=== PATIENT | female | born 1940 | race Caucasian/White ===

== ENCOUNTER 2016-07-04 14:40 | Inpatient (IN) ==
[2016-07-04] MEDS ORDERED: methylPREDNISolone 125 MG/2 ML VIAL IVP ONE (14:45)
[2016-07-04] MEDS ORDERED: Ipratropium/Albuterol Neb 3 ML IH ONE (14:45)
--- NOTE | 2016-07-04 14:56 | Emergency Department Note ---
Disposition Clinical Impression: Community acquired pneumonia, Elevated troponin Acute respiratory failure Qualifiers: Respiratory failure complication: unspecified whether with hypoxia or hypercapnia Qualified Code(s): J96.00 - Acute respiratory failure, unspecified whether with hypoxia or hypercapnia Disposition: Admitted As Inpatient Condition: Fair Time of Disposition: 17:46 SOB HPI - General Chief Complaint: ED Shortness of Breath/Dyspnea Stated Complaint: KAYLA Time Seen by Provider: 07/04/16 14:44 Source: family, EMS Mode of arrival: EMS Limitations: other (on bipap) Nursing Notes Reviewed: Yes Vital Signs Reviewed: Yes - History of Present Illness Patient is a 75-year-old female who presents to [facility] ED and respiratory distress on a CPAP machine. Per EMS, patient has been having a cough for the last few days and then increasing difficulty breathing today. Family members states she does not have any history of COPD or heart problems. Apparently, patient was on room air at 60%. Patient does not have any history of being on home oxygen. Past medical history significant for dementia, hypertension, diabetes, cirrhosis of the liver, gastric ulcer, chronic back pain. Patient was recently seen on June 06 after a fall at home. She was diagnosed with multiple right-sided rib fractures. She is given an incentive spirometer and told to follow up with her primary care physician. Pt Subjective Complaint: shortness of breath, cough Onset (ago): day(s) Context: recent illness Severity: severe Consistency/Duration: gradually worsening Improves with: nothing Worsens with: nothing - Related Data Home Medications Medication Instructions Recorded Confirmed Amitriptyline [Elavil] 40 mg PO HS 07/04/16 07/04/16 Calcium Carbonate/Vitamin D3 1 tab PO BID 07/04/16 07/04/16 [Oyster Shell Calcium-Vit D Tab] Donepezil HCl [Aricept] 5 mg PO DAILY 07/04/16 07/04/16 Escitalopram [Lexapro] 20 mg PO DAILY 07/04/16 07/04/16 Esomeprazole Magnesium [Nexium] 40 mg PO DAILY 07/04/16 07/04/16 Ferrous Sulfate [Iron] 325 mg PO DAILY 07/04/16 07/04/16 GlipiZIDE [Glucotrol] 5 mg PO BIDWM 07/04/16 07/04/16 LORazepam [Ativan] 1 mg PO QID 07/04/16 07/04/16 Lisinopril [Zestril] 20 mg PO DAILY 07/04/16 07/04/16 Metformin [Glucophage] 500 mg PO BIDWM 07/04/16 07/04/16 Metoprolol [Lopressor] 25 mg PO BID 07/04/16 07/04/16 Oxycodone HCl/Acetaminophen 1 tab PO Q8H PRN 07/04/16 07/04/16 [Percocet 10-325 mg Tablet] Potassium Chloride [K-Tab ER] 10 meq PO BID 07/04/16 07/04/16 Risedronate Sodium [Actonel] 35 mg PO QWEEK 07/04/16 07/04/16 Simvastatin [Zocor] 20 mg PO HS 07/04/16 07/04/16 Sucralfate [Carafate] 1 gm PO QIDAC 07/04/16 07/04/16 Allergies Allergy/AdvReac Type Severity Reaction Status Date / Time No Known Allergies Allergy Verified 07/04/16 14:49 All systems ED: reviewed and negative except as stated. Past Medical History - Past Medical History Attestation: Yes The following information was validated with the patient. Source: patient Medical history: Reports: cirrhosis, diabetes Surgical history: Reports: hysterectomy Psychiatric history: Reports: depression - Social History Smoking Status: Never smoker Smokeless Tobacco Status: No Alcohol use: Reports: none Drug use: Reports: none Physical Exam - General Limitations: no limitations General appearance: alert, in distress - Head Head exam: atraumatic, normocephalic, normal inspection - Eye Eye exam: Present: normal appearance, PERRL, EOMI - ENT ENT exam: normal exam, normal oropharynx, mucous membranes moist - Neck Neck exam: Present: normal inspection, full ROM, trachea midline - Chest Chest inspection: Present: normal inspection, symmetric chest wall rise - Respiratory Respiratory exam: Present: other (Diffuse rhonchi bilaterally) - Cardiovascular Cardiovascular exam: Present: normal rhythm, tachycardia - Abdominal Exam Abdominal exam: Present: soft, Non-Tender. Absent: tenderness, distention, guarding, rebound, rigidity - Extremities Exam Extremities exam: Present: normal inspection, full ROM. Absent: tenderness, pedal edema - Neurological Exam Neurological exam: Present: alert - Psychiatric Psychiatric exam: Present: normal affect, normal mood - Skin Skin exam: Present: warm, dry, intact, normal color Course Course Narrative: Patient seen and examined. History and review of systems limited by dementia. Patient currently on BiPAP. She is awake and able to talk. We will do critical care workup. - Reevaluation(s) Reevaluation #1: Lab work shows mild hyponatremia sodium 129, mildly elevated troponin of 0.04, BNP of 158. CTA of the chest showed CHF versus multifocal pneumonia. We will give azithromycin and ceftriaxone to treat as a pneumonia. Will admit for acute respiratory failure, CHF versus pneumonia. I spoke with hospitalist Dora Leo who has accepted patient for admission. Time: 17:44 Vital Signs Temperature 99.5 F 07/04/16 14:41 Pulse Rate 149 07/04/16 14:41 Respiratory Rate 32 07/04/16 14:41 Blood Pressure 166/134 07/04/16 14:41 O2 Sat by Pulse Oximetry 94 L 07/04/16 14:41 Temperature 99.5 F 07/04/16 14:41 Pulse Rate 99 07/04/16 17:48 Respiratory Rate 18 07/04/16 17:48 Blood Pressure 118/73 07/04/16 17:48 O2 Sat by Pulse Oximetry 98 07/04/16 17:48 Oxygen Delivery Oxygen Delivery Bipap Shortness of Breath/Dyspnea - Medical Records Medical records reviewed: Yes I reviewed the patient's medical records. - Lab Data Lab results reviewed: Yes I reviewed the patient's lab results. Result diagrams: 07/04/16 15:49 07/04/16 15:49 Lab Results 07/04/16 07/04/16 07/04/16 Range/Units 15:45 15:49 15:49 WBC 10.9 (4.3-11.1) K/mcL RBC 3.82 (3.82-4.97) M/mcL Hgb 11.1 L (11.5-15.4) g/dL Hct 33.2 L (35.3-44.9) % MCV 86.9 (83.0-100.0) fL MCH 29.1 (28.0-33.3) pg MCHC 33.4 (31.6-35.5) g/dL RDW 14.2 (11.5-14.5) % Plt Count 131 L (140-400) K/mcL MPV 9.7 (9.4-12.4) fL Immature Gran % 1.6 (0-4) % Seg Neutrophils % 84.1 % Lymphocytes % 4.0 % Monocytes % 9.5 % Eosinophils % 0.5 % Basophils % 0.3 % Neutrophils # 9.2 H (1.6-8.9) K/mcL Lymphocytes # 0.4 L (0.6-4.6) K/mcL Monocytes # 1.0 (0.0-1.3) K/mcL Eosinophils # 0.1 (0.0-0.6) K/mcL Basophils # 0.0 (0.0-0.2) K/mcL Immature Plt Fraction 3.7 (1.1-6.1) % ABG pH 7.41 (7.32-7.45) pH Units ABG pCO2 37 (35-45) mmHg ABG pO2 219 H (85-104) mmHg ABG HCO3 23.5 (21-27) mEQ/L ABG Total CO2 24.6 (20-26) mEq/L ABG O2 Saturation 100 H (95-98) % ABG Base Excess -0.9 (-2.0 to 3.0) mEq/L Blood Gas Modality BIPAP Inspired O2 80 % Sodium 129 L (136-145) mEq/L Potassium 3.9 (3.5-4.5) mEq/L Chloride 96 L (98-109) mEq/L Carbon Dioxide 23 (19-29) mEq/L BUN 12 (7-20) mg/dL Creatinine 0.87 (0.57-1.11) mg/dL Est GFR ( Amer) > 60 (> 60) Est GFR (Non-Af Amer) > 60 (> 60) BUN/Creatinine Ratio 14 (6-26) Glucose 268 H (70-99) mg/dL Calculated Osmolality 277 L (280-300) Lactic Acid (0.5-2.2) mmol/L Calcium 8.0 L (8.6-10.8) mg/dL Troponin I (0-0.03) ng/mL B-Natriuretic Peptide (0-100) pg/mL 07/04/16 07/04/16 07/04/16 Range/Units 15:49 15:49 15:49 WBC (4.3-11.1) K/mcL RBC (3.82-4.97) M/mcL Hgb (11.5-15.4) g/dL Hct (35.3-44.9) % MCV (83.0-100.0) fL MCH (28.0-33.3) pg MCHC (31.6-35.5) g/dL RDW (11.5-14.5) % Plt Count (140-400) K/mcL MPV (9.4-12.4) fL Immature Gran % (0-4) % Seg Neutrophils % % Lymphocytes % % Monocytes % % Eosinophils % % Basophils % % Neutrophils # (1.6-8.9) K/mcL Lymphocytes # (0.6-4.6) K/mcL Monocytes # (0.0-1.3) K/mcL Eosinophils # (0.0-0.6) K/mcL Basophils # (0.0-0.2) K/mcL Immature Plt Fraction (1.1-6.1) % ABG pH (7.32-7.45) pH Units ABG pCO2 (35-45) mmHg ABG pO2 (85-104) mmHg ABG HCO3 (21-27) mEQ/L ABG Total CO2 (20-26) mEq/L ABG O2 Saturation (95-98) % ABG Base Excess (-2.0 to 3.0) mEq/L Blood Gas Modality Inspired O2 % Sodium (136-145) mEq/L Potassium (3.5-4.5) mEq/L Chloride (98-109) mEq/L Carbon Dioxide (19-29) mEq/L BUN (7-20) mg/dL Creatinine (0.57-1.11) mg/dL Est GFR ( Amer) (> 60) Est GFR (Non-Af Amer) (> 60) BUN/Creatinine Ratio (6-26) Glucose (70-99) mg/dL Calculated Osmolality (280-300) Lactic Acid 1.6 (0.5-2.2) mmol/L Calcium (8.6-10.8) mg/dL Troponin I 0.04 H* (0-0.03) ng/mL B-Natriuretic Peptide 158 H (0-100) pg/mL - Radiology Data Radiology results reviewed: Yes I reviewed the patient's radiology results. Chest X-Ray 07/04/16 14:45 IMPRESSION: Findings likely represent CHF. Multifocal pneumonia can give similar findings. D/ / Garry Zuñiga MD / Garry Zuñiga MD Interpreting Provider: Garry Zuñiga MD - EKG Data EKG attestation: Yes I reviewed and interpreted this EKG. EKG results narrative: EKG done at 1542 shows sinus tachycardia with a rate of [address] elevation or depression. Left bundle branch block present. Left axis deviation. Critical Care Time Critical Care Time: Yes Total Critical Care Time: 35 Attestation: Critical care time 35 minutes managing patient's respiratory distress. Attestation Statement - Attestation Attestation: Patient was seen with resident physician. I reviewed the history, physical, assessment and plan, and agree with the findings. I also personally evaluated this patient and had [id number] time with this patient. 75-year-old female presents to the emergency department via EMS with acute onset of shortness of breath. Family states that patient has had a worsening cough and last 48 hours. Today in particular it got very bad and the patient was having difficult breathing. She has no history of COPD that there were obtained does not take breathing treatments. She is placed on BiPAP via EMS was given nitroglycerin as well as Lasix and brought to the emergency department. On arrival patient to the BiPAP and unable to provide a history. Clearly struggling to breathe. On examination ENT is unremarkable. Heart tachycardic with regular rhythm. Lungs accessory muscles being used to help with respiration lungs diffusely wheezy with rhonchi as well. Poor air exchange. Abdomen is soft obese and nontender. Extremities are unremarkable she has 1+ edema in the lower extremities bilaterally. Neurologically patient is alert and follows commands. We will do workup for COPD, CHF, and pneumonia. We will also check for cardiac causes of her symptoms. Patient's x-ray looked like the beginning of ARDS, but certainly had patchy infiltrate which could be consistent with pneumonia. We will start IV antibiotics while in the emergency department. Patient remained on BiPAP but improved significantly throughout her stay. Hospitalist service was notified as to the need for admission. I agree with the resident physician assessment and plan. Critical care time for this patient was 35 minutes.
[2016-07-04 15:56] LABS: Basophils % 0.3 %; Eosinophils # 0.1 K/mcL (0.0-0.6); Eosinophils % 0.5 %; Hematocrit 33.2 % (35.3-44.9); Hemoglobin 11.1 g/dL (11.5-15.4); Immature Granulocytes % 1.6 % (0-4); Immature Platelets 3.7 % (1.1-6.1); Lymphocytes # 0.4 K/mcL (0.6-4.6); Mean Corpuscular HGB Conc 33.4 g/dL (31.6-35.5); Mean Corpuscular Hemoglobin 29.1 pg (28.0-33.3); Mean Corpuscular Volume 86.9 fL (83.0-100.0); Mean Platelet Volume 9.7 fL (9.4-12.4); Monocytes % 9.5 %; Neutrophils # 9.2 K/mcL (1.6-8.9); Platelet Count 131 K/mcL (140-400); Red Blood Count 3.82 M/mcL (3.82-4.97); Red Cell Distribution Width 14.2 % (11.5-14.5); Segmented Neutrophils % 84.1 %
[2016-07-04 15:56] LABS: ABG Base Excess -0.9 mEq/L (-2.0 to 3.0); ABG HCO3 23.5 mEQ/L (21-27); ABG Oxygen Saturation 100 % (95-98); ABG PCO2 37 mmHg (35-45); ABG PH 7.41 pH Units (7.32-7.45); ABG PO2 219 mmHg (85-104); ABG TCO2 24.6 mEq/L (20-26)
[2016-07-04 16:00] LABS: Blood Gas FiO2 80 %
[2016-07-04 16:11] LABS: BUN/Creatinine Ratio 14 (6-26); Blood Urea Nitrogen 12 mg/dL (7-20); Carbon Dioxide 23 mEq/L (19-29); Chloride 96 mEq/L (98-109); Glucose 268 mg/dL (70-99); Osmolality,Calculated 277 (280-300); Potassium 3.9 mEq/L (3.5-4.5); Sodium 129 mEq/L (136-145); eGFR For African Americans > 60 (> 60); eGFR For Non-African Americans > 60 (> 60)
[2016-07-04] MEDS ORDERED: Azithromycin 500 MG in D5% in Water 250 ML IVPB ONE (16:40)
[2016-07-04] MEDS ORDERED: Furosemide 40 MG/4 ML VIAL IVP ONE (19:59)
[2016-07-04] MEDS ORDERED: *HR* Heparin 5,000 UNIT/ML VIAL IVP PRN ×2 (20:30)
[2016-07-04] MEDS ORDERED: *HR* Heparin 5,000 UNIT/ML VIAL IVP ONE (20:30)
[2016-07-04] MEDS ORDERED: Heparin 25,000 UNIT/500 ML D5W 25,000 UNIT/500 ML MLS IVC SCH (20:30)
--- NOTE | 2016-07-04 20:38 | Internal Med History&Physical ---
Date of Encounter: 07/04/16 Time of Encounter: 20:34 Assessment and Plan (1) Diastolic CHF, acute on chronic Current visit: Yes Status: Acute I suspect the main reason for presentation is heart failure. I will start the patient on Lasix 40 mg IV twice a day. Echocardiogram will be checked. Following taken output. Piña catheter has been placed. (2) Acute respiratory failure Current visit: Yes Status: Acute Patient is currently on BiPAP FIFO to 40%. arterial blood gas will be repeated at 10 PM. Qualifiers: Respiratory failure complication: unspecified whether with hypoxia or hypercapnia Qualified Code(s): J96.00 - Acute respiratory failure, unspecified whether with hypoxia or hypercapnia (3) Community acquired pneumonia Current visit: Yes Status: Acute Patient has been coughing however there is no sputum production. No fever. She will be kept emperically on antibiotic Levaquin for community acquired pneumonia. No recent hospitalization. (4) Elevated troponin Current visit: Yes Status: Acute Patient has a left bundle branch block. However an electrocardiogram 2 years ago was reviewed and she did have left bundle branch block before. She has troponin elevation because of my suspicion of pulmonary congestion on presentation I will start the patient on heparin drip in case this is a cardiac event. She consultation. Continue aspirin beta ngozi (5) Diabetes mellitus type 2 in obese Current visit: Yes Status: Acute Sliding scale insulin. Check hemoglobin A-1 C in the morning Internal Medicine - H&P: HPI Chief complaint: Shortness of breath. History of present illness: Ms. Nieto is a 75 year old female with history of dementia, diabetes mellitus, hypertension who recently sustained a fall on June 06 causing multiple rib fractures presents to the emergency room with the main complaint of shortness of breath. For the past 3 days family noted that the patient has been having cough however there was no sputum production. Since yesterday patient was noted to be more short of breath this has progressed rapidly today to the point where she was unable to breathe and rest. Paramedics found her saturation to be 60% on room air. She was placed on BiPAP and remained on BiPAP till my interview. The patient denies any chest pain however she is complained to her family of abdominal pain in the periumbilical area.. Family has not noted any fevers chills. There was no sputum production. There is no prior history of coronary artery disease. Patient does not have any chronic lung conditions. She never smoked. No prior history of COPD. On my interview patients oxygen requirements have decreased to 40% on BiPAP she was earlier requiring 90% FI O2 on BiPAP. Patients electrocardiogram shows left bundle branch block however on reviewing her prior EKG 2 years ago she did have left bundle branch block. Past Med Surg Social Fam HX - Past Medical History Medical history: cirrhosis, diabetes Psychiatric history: depression - Past Surgical History Surgical History: hysterectomy - Social History Smoking Status: Never smoker Smokeless Tobacco Status: No Alcohol use: none Drug use: none Internal Medicine - H&P: Meds Amitriptyline [Elavil] 40 mg PO HS 07/04/16 [History] Calcium Carbonate/Vitamin D3 [Oyster Shell Calcium-Vit D Tab] 1 tab PO BID 07/04 [History] Donepezil HCl [Aricept] 5 mg PO DAILY 07/04/16 [History] Escitalopram [Lexapro] 20 mg PO DAILY 07/04/16 [History] Esomeprazole Magnesium [Nexium] 40 mg PO DAILY 07/04/16 [History] Ferrous Sulfate [Iron] 325 mg PO DAILY 07/04/16 [History] GlipiZIDE [Glucotrol] 5 mg PO BIDWM 07/04/16 [History] LORazepam [Ativan] 1 mg PO QID 07/04/16 [History] Lisinopril [Zestril] 20 mg PO DAILY 07/04/16 [History] Metformin [Glucophage] 500 mg PO BIDWM 07/04/16 [History] Metoprolol [Lopressor] 25 mg PO BID 07/04/16 [History] Oxycodone HCl/Acetaminophen [Percocet 10-325 mg Tablet] 1 tab PO Q8H PRN [History] Potassium Chloride [K-Tab ER] 10 meq PO BID 07/04/16 [History] Risedronate Sodium [Actonel] 35 mg PO QWEEK 07/04/16 [History] Simvastatin [Zocor] 20 mg PO HS 07/04/16 [History] Sucralfate [Carafate] 1 gm PO QIDAC 07/04/16 [History] Allergies haloperidol Allergy (Verified 07/04/16 19:37) Hallucinating All Systems PM: A 10-system review of systems was performed and is negative for pertinent findings except as documented above in the HPI. Review of systems: [place] review of systems is negative except for HPI. - Constitutional Vitals: Temp Pulse Resp BP Pulse Ox 98.6 F 78 18 127/65 99 07/04/16 20:17 07/04/16 20:17 07/04/16 20:17 07/04/16 20:17 07/04/16 20:17 Exam: Gen.: patient is alert not in distress. Cardiac: Normal S1 S2 no additional sounds or murmurs chest: scattered expiratory wheeze. I do not appreciate bronchial breathing abdomen soft nontender nondistended normal bowel sounds lower extremity: lax calf muscles, 1+ swelling neuro no focal deficit Internal Med - H&P Results - Labs CBC & Chem 7: 07/04/16 15:49 07/04/16 15:49
[2016-07-04 21:20] LABS: Hematocrit 28.9 % (35.3-44.9); Hemoglobin 9.8 g/dL (11.5-15.4); Immature Platelets 4.2 % (1.1-6.1); Mean Corpuscular HGB Conc 33.9 g/dL (31.6-35.5); Mean Corpuscular Hemoglobin 29.3 pg (28.0-33.3); Mean Corpuscular Volume 86.3 fL (83.0-100.0); Mean Platelet Volume 9.5 fL (9.4-12.4); Red Blood Count 3.35 M/mcL (3.82-4.97)
[2016-07-04 21:25] LABS: INR 1.4; Prothrombin Time 15.3 Seconds (9.4-12.1)
[2016-07-04 21:27] LABS: Activated Partial Thrombo Time 25.8 Seconds (26.0-36.0)
[2016-07-04] MEDS: Levalbuterol Neb 1.25 MG/3 ML IH SCH (22:01)
[2016-07-04 22:52] LABS: ABG Base Excess 1.8 mEq/L (-2.0 to 3.0); ABG HCO3 27.2 mEQ/L (21-27); ABG Oxygen Saturation 97 % (95-98); ABG PCO2 45 mmHg (35-45); ABG PH 7.39 pH Units (7.32-7.45); ABG PO2 87 mmHg (85-104); ABG TCO2 28.6 mEq/L (20-26); Blood Gas FiO2 35 %
[2016-07-05] MEDS: Levofloxacin 750 MG/150 ML 750 MG/150 ML BAG IVPB SCH ×2 (00:13→08:14)
[2016-07-05] MEDS: Insulin LISPRO 300 UNITS/3 ML VIAL SQ SCH ×4 (00:45→18:00)
[2016-07-05] MEDS ORDERED: Insulin LISPRO 300 UNITS/3 ML VIAL SQ ONE (01:00)
[2016-07-05] MEDS: Aspirin Enteric Coated 325 MG Tablet PO SCH ×3 (01:18→10:39)
[2016-07-05] MEDS: Levalbuterol Neb 1.25 MG/3 ML IH SCH ×4 (04:49→20:55)
[2016-07-05 04:54] LABS: Basophils % 0.2 %; Hemoglobin 9.7 g/dL (11.5-15.4)
[2016-07-05 04:56] LABS: Hematocrit 28.3 % (35.3-44.9); Immature Granulocytes % 1.8 % (0-4); Immature Platelets 4.8 % (1.1-6.1); Lymphocytes # 0.3 K/mcL (0.6-4.6); Lymphocytes % 5.2 %; Mean Corpuscular HGB Conc 34.3 g/dL (31.6-35.5); Mean Corpuscular Hemoglobin 29.5 pg (28.0-33.3); Mean Platelet Volume 10.3 fL (9.4-12.4); Monocytes # 0.4 K/mcL (0.0-1.3); Monocytes % 7.1 %; Neutrophils # 4.3 K/mcL (1.6-8.9); Red Blood Count 3.29 M/mcL (3.82-4.97); Red Cell Distribution Width 14.1 % (11.5-14.5); Segmented Neutrophils % 85.7 %
[2016-07-05 05:01] LABS: Hemoglobin A1C 5.2 %; Platelet Count 88 K/mcL (140-400)
[2016-07-05 05:06] LABS: BUN/Creatinine Ratio 17 (6-26); Blood Urea Nitrogen 16 mg/dL (7-20); Calcium 7.8 mg/dL (8.6-10.8); Carbon Dioxide 26 mEq/L (19-29); Chloride 98 mEq/L (98-109); Creatine Kinase 52 Units/L (29-168); Glucose 264 mg/dL (70-99); Magnesium 1.4 mg/dL (1.6-2.6); Osmolality,Calculated 284 (280-300); Potassium 3.3 mEq/L (3.5-4.5); Sodium 132 mEq/L (136-145); eGFR For African Americans > 60 (> 60); eGFR For Non-African Americans 59 (> 60)
[2016-07-05] MEDS ORDERED: Furosemide 40 MG/4 ML VIAL IVP SCH (06:00)
--- NOTE | 2016-07-05 09:33 | Cardiology Consult Note ---
Date of Encounter: 07/05/16 Time of Encounter: 09:31 Assessment and Plan (1) Community acquired pneumonia Current Visit: Yes Status: Acute Patient empirically treated with Levaquin I suspect patient's hypoxemia is likely due to CAP Will defer to primary team for management (2) CHF (congestive heart failure) Current Visit: Yes Status: Chronic Acute heart failure is unlikely etiology of patient's respiratory failure Weight is down from baseline (203 in April, 189 at this visit), patient is euvolemic on exam ECHO performed 10/07/14 demonstrated LVEF 55-60%, mild LV diastolic dysfunction Mild heart failure may be contributing to clinical picture. However unlikely primary etiology. Repeat ECHO demonstrates EF 60%, concentric LVH, mild LV diastolic dysfunction, atypical septal motion consistent with BBB, normal RV, mild to moderate pulmonary hypertension Continue home meds: beta-ngozi, lisinopril, simvastatin Discontinue IV diuresis Qualifiers: Congestive heart failure type: unspecified congestive heart failure type Congestive heart failure chronicity: unspecified congestive heart failure chronicity Qualified Code(s): I50.9 - Heart failure, unspecified (3) Obstructive sleep apnea Current Visit: Yes Status: Chronic ECHO demonstrates mild-moderate pulmonary hypertension Patient's history is suggestive of untreated JUDY Recommend further evaluation for JUDY and etiology of pulmonary hypertension (4) Elevated troponin Current Visit: Yes Status: Acute Elevated troponin likely secondary to pulmonary congestion and demand ischemia Troponin is trending down (0.04, 0.10, 0.05) EKG with finding of LBBB is nondiagnostic due to EKG in 2014 demonstrating LBBB Discontinue heparin drip (5) Hypomagnesemia Current Visit: Yes Status: Acute Replaced IV Continue to monitor (6) Hypokalemia Current Visit: Yes Status: Acute Replaced per hospitalist team Continue to monitor Discussion w patient/family: The assessment and plan as outlined above was discussed with the patient and/or family members who expressed understanding and agreement. All questions were answered. Thank you for involving us in the care of your patient. Please call with any questions. History of Present Illness Consult date: 07/05/16 Requesting physician: Conner Oseguera Consult reason: CHF Chief complaint: dyspnea History of present illness: Ms. Nieto is a 75 year old female with past medical history significant for dementia, hypertension, diabetes, cirrhosis of the liver, gastric ulcer, and chronic back pain who presented to [facility] ED yesterday via EMS with complaints of shortness of breath. Patient's family states states that she has been increasingly dyspnic x 2 days. EMS was called. Before EMS arrived on the scene , patient states she "blacked out". However, she is unable to provide further details. Per notes, EMS found the patient to have O2 sat of 60% on room air upon arrival. Patient was started on CPAP and transported to hospital. EKG is sinus tachycardia with left axis deviation and left bundle branch block. LBBB present on previous EKG dated 01/13/15. CXR demonstrates mild cardiomegaly with ill-defined pulmonary vascularity. Patchy bilateral and bibasilar airspace disease is present suspicious for pneumonia. ECHO 10/08/15 demonstrated LVEF 55- 60%, normal wall motion, mild LV diastolic dysfunction, mild AR, mild MR, mild TR, no pulmonary HTN. Patient was admitted and treated empirically for PNA with Levaquin. Patient was seen and examined with patient's family at bedside. Patient's son states that other's living in home with patient have had upper respiratory infections. Admits that patient has episodes of snoring with apnea during sleep. Patient has never had a sleep study. She does not use CPAP at home. She does no have home O2. However, son is concerned that patient may need home O2 due to dyspnea on exertion. Denies fever, chills, chest pain, nausea, vomiting. Past Med Surg Social Fam HX - Past Medical History Medical history: cirrhosis, diabetes Psychiatric history: depression - Past Surgical History Surgical History: hysterectomy - Social History Smoking Status: Never smoker Smokeless Tobacco Status: No Alcohol use: none Drug use: none - Family History Sister Adopted: [place]: Coco parekh Age: 78 Living Status: Still Living Hx Family Cardiac Disorders: Yes (brain aneruism with stent.) Hx Family Respiratory Disorders: No Hx Family Cancer: No Hx Family GI Disorders: No Hx Family Genitourinary Disorders: Yes (Urinary frequency) Hx Family Endocrine Disorder: No Hx Family Musculoskeletal Disorders: Yes (Arthritis) Hx Family Neuromuscular Disorders: No Hx Family Neurologic Disorders: No Hx Family HEENT Disorders: No Hx Family Autoimmune Disorders: No Hx Family Reproductive Disorders: Yes (hyster) Hx Family Psychosocial Disorders: No Hx Family Medical Disorders: No Medications and Allergies Amitriptyline [Elavil] 40 mg PO HS 07/04/16 [History] Calcium Carbonate/Vitamin D3 [Oyster Shell Calcium-Vit D Tab] 1 tab PO BID 07/04 [History] Donepezil HCl [Aricept] 5 mg PO DAILY 07/04/16 [History] Escitalopram [Lexapro] 20 mg PO DAILY 07/04/16 [History] Esomeprazole Magnesium [Nexium] 40 mg PO DAILY 07/04/16 [History] Ferrous Sulfate [Iron] 325 mg PO DAILY 07/04/16 [History] GlipiZIDE [Glucotrol] 5 mg PO BIDWM 07/04/16 [History] LORazepam [Ativan] 1 mg PO QID 07/04/16 [History] Lisinopril [Zestril] 20 mg PO DAILY 07/04/16 [History] Metformin [Glucophage] 500 mg PO BIDWM 07/04/16 [History] Metoprolol [Lopressor] 25 mg PO BID 07/04/16 [History] Oxycodone HCl/Acetaminophen [Percocet 10-325 mg Tablet] 1 tab PO Q8H PRN [History] Potassium Chloride [K-Tab ER] 10 meq PO BID 07/04/16 [History] Risedronate Sodium [Actonel] 35 mg PO QWEEK 07/04/16 [History] Simvastatin [Zocor] 20 mg PO HS 07/04/16 [History] Sucralfate [Carafate] 1 gm PO QIDAC 07/04/16 [History] Allergies haloperidol Allergy (Verified 07/04/16 19:37) Hallucinating All Systems Review: A 10-system review of systems was performed and is negative for pertinent findings except as documented above in the HPI. Physical Examination Vital Signs, Last 4 Hours Temp Pulse Resp BP Pulse Ox 07/05/16 08:38 97 07/05/16 08:28 97.6 F 108 16 132/74 97 07/05/16 05:32 98.4 F 109 18 98/52 96 General: Conversant, No Apparent Distress, Other (AAOx2 (does not know year)) HEENT: Atraumatic, Normocephaly, Other (Dry mucous membranes) Neck: No JVD, Normal carotid pulses Cardiac: Normal S1 and S2, No Murmur, Other (Tachycardia, Normal rhythm) Lungs: Normal Breath Sounds, No Wheeze, Rales, Rhonchi Neuro: Alert and responsive, No focal deficits noted Abdomen: Soft, Non-Tender Skin: No rashes noted on visualized skin Musculoskeletal: No Chest Wall Tenderness Extremities: No Clubbing, No Cyanosis, No Edema, Normal Pulses Results 07/05/16 03:58 07/05/16 03:58 Lab Results 07/04/16 07/04/16 07/04/16 21:08 21:08 21:08 WBC 4.7 D Hgb 9.8 L Hct 28.9 L Plt Count 81 L INR 1.4 APTT 25.8 L Sodium Potassium Chloride Carbon Dioxide BUN Creatinine Glucose Calcium Magnesium Troponin I 0.10 H* 07/05/16 07/05/16 07/05/16 03:58 03:58 03:58 WBC 5.0 Hgb 9.7 L Hct 28.3 L Plt Count 88 L INR APTT Sodium 132 L Potassium 3.3 L Chloride 98 Carbon Dioxide 26 BUN 16 Creatinine 0.92 Glucose 264 H Calcium 7.8 L Magnesium 1.4 L Troponin I 0.05 H* 07/05/16 03:58 WBC Hgb Hct Plt Count INR APTT 59.7 H D Sodium Potassium Chloride Carbon Dioxide BUN Creatinine Glucose Calcium Magnesium Troponin I - Imaging and Cardiology Chest Xray: report reviewed, image reviewed - EKG Interpretation EKG results cardiology: personally reviewed, normal ECG, sinus rhythm, left bundle branch block (unchanged since December,) Consult Discharge Plan - Plan Referrals: NO,PCP [Primary Care Provider] -
[2016-07-05] MEDS ORDERED: Magnesium Sulfate 2 GM in D5% in Water 100 ML IVPB ONE (11:06)
--- NOTE | 2016-07-05 11:14 | Internal Med Progress Note ---
<Miguel Rhodes T - Last Filed: 07/05/16 17:01> - Constitutional Vitals: Temp Pulse Resp BP Pulse Ox 98.6 F 92 18 137/75 99 07/05/16 15:36 07/05/16 15:36 07/05/16 15:36 07/05/16 15:36 07/05/16 15:36 Internal Medicine: Result - Labs CBC & Chem 7: 07/05/16 03:58 07/05/16 03:58 Labs: Short CBC 07/04/16 07/05/16 Range/Units 21:08 03:58 WBC 4.7 D 5.0 (4.3-11.1) K/mcL Hgb 9.8 L 9.7 L (11.5-15.4) g/dL Hct 28.9 L 28.3 L (35.3-44.9) % Plt Count 81 L 88 L (140-400) K/mcL Neutrophils # 4.3 (1.6-8.9) K/mcL BMP 07/05/16 03:58 Sodium 132 L Potassium 3.3 L Chloride 98 Carbon Dioxide 26 BUN 16 Creatinine 0.92 Glucose 264 H Calcium 7.8 L Cardiac Enzymes 07/04/16 07/05/16 Range/Units 21:08 03:58 Troponin I 0.10 H* 0.05 H* (0-0.03) ng/mL - ABG Interpretation ABG results: ABG ABG pH 7.39 pH Units (7.32-7.45) 07/04/16 22:38 ABG pCO2 45 mmHg (35-45) 07/04/16 22:38 ABG pO2 87 mmHg (85-104) 07/04/16 22:38 ABG O2 Saturation 97 % (95-98) 07/04/16 22:38 PT/INR, D-dimer PT 15.3 Seconds (9.4-12.1) H 07/04/16 21:08 Consult Discharge Plan - Plan Referrals: NO,PCP [Primary Care Provider] - - Attending Attestation I examined this patient and my medical decision-making was reviewed with the MITTEN STITCHER/PA/Advanced Practice Nurse/Resident Physician. I agree with the documented findings, disposition and treatment plan as described except to the extent set forth below. 75 Y/O F with dementia, CHFpEF admitted for management of acute hypoxic respiratory failure secondary to multifocal pneumonia and suspected acute on chronic CHF Seen at bedside with family, laying flat in bed in no obvious distress Chest is clear at this time, HS S1, S2, s3. Abdomen is benign, no pedal edema, patient is euvolemic on exam Labs and imaging reviewed ECHO with EF 60%, concentric LVH, mild LVDD, LBBB, mild to moderate Pulm HTN, CXR with mutifocal pneumonia Slight elevated troponin, no leukocytosis, stable Hb, mild hypokalemia, hypomagnessemia Continue antibiotics, d/c Piña catheter, d/c heparin drip, resume home meds, replace K and Mag continue other management rest of details as in resident's documentation... <Nelson Wakefield - Last Filed: 07/05/16 19:07> Date of Encounter: 07/05/16 Time of Encounter: 11:12 - Assessment and plan (1) Acute respiratory failure Current Visit: Yes Status: Acute Assessment and plan: Resolved. Acute respiratory failure secondary to multifocal pneumonia vs acute on chronic diastolic chf CXR revealed patchy bialteral periilar and bibasilar airspace disease without pleural effusions. EKG revealed LBBB, no change from prior. Patient satting at 97% on 2L nasal cannula, appears comfortable in bed. Echo revealed EF 60%, mild to moderate pulmonary hypertension. Qualifiers: Respiratory failure complication: unspecified whether with hypoxia or hypercapnia Qualified Code(s): J96.00 - Acute respiratory failure, unspecified whether with hypoxia or hypercapnia (2) Diastolic CHF, acute on chronic Current Visit: Yes Status: Acute Assessment and plan: Echo revealed EF 60%, mild to moderate pulmonary hypertension. S3 on exam. Continue to monitor I/Os. Continue with fluid restriction. (3) Community acquired pneumonia Current Visit: Yes Status: Acute Assessment and plan: CXR revealed patchy bilateral perihilar and bibasilar airspace disease suggestive of possible multifocal pneumonia. Continue Levaquin d2 Received 1 dose azithromycin and rocephin in the ED. (4) Diabetes mellitus type 2 in obese Current Visit: Yes Status: Acute Assessment and plan: Continue with sliding scale insulin per protocol. Prandial insulin added. Glucose elevated at 264. (5) Elevated troponin Current Visit: Yes Status: Acute Assessment and plan: Troponin elevated on admission at 0.04, 0.10, 0.05. Likely secondary to demand ischemia secondary to acute resp failure. (6) DVT prophylaxis Current Visit: Yes Status: Acute Assessment and plan: Continue with heparin. - Subjective Interval history: Patient reports doing much better than yesterday. Denies shortness of breath, though on 2L nasal cannula. Patient denies fevers, chills, sweats, headache, nausea, vomiting, chest pain, shortness of breath, abdominal pain, changes in bowels or bladder, weakness, or loss of sensation. - Constitutional Vitals: Temp Pulse Resp BP Pulse Ox 97.6 F 108 16 132/74 97 07/05/16 08:28 07/05/16 08:28 07/05/16 08:28 07/05/16 08:28 07/05/16 08:38 General appearance: Present: cooperative, A&O X 3, pleasant, no acute distress, answers questions appropriately - Head Head exam: Present: atraumatic, normal inspection, normocephalic - Eye Eye exam: Present: EOMI, normal appearance, PERRL - ENT ENT exam: Present: mucous membranes moist, normal exam, normal external ear exam , normal oropharynx - Neck Neck exam general surgery: Present: full ROM, normal inspection, supple, trachea midline. Absent: lymphadenopathy, tenderness - Respiratory Respiratory exam: Present: wheezes (expiratory). Absent: chest wall tenderness , CTAB, rales, rhonchi - Cardiovascular Cardiovascular exam: Present: RRR, +S1, +S2, +S3. Absent: JVD - GI/Abdominal GI/Abdominal exam: Present: normal bowel sounds, soft. Absent: distended, guarding, tenderness - Extremities Exam Extremities exam: Present: full ROM, normal capillary refill, pedal edema (1+), warm, radial pulses palpable and symetrical. Absent: calf tenderness, tenderness - Neurological Exam Neurological exam: Present: alert, CN II-XII intact, normal gait (with assistance), reflexes normal, strengths equal and symetr throughout. Absent: motor sensory deficit, no focal deficits, pronater drift, facial droop, speech deficit Additional comments: oriented only to person - Psychiatric Psychiatric exam: Present: normal affect, normal mood - Skin Skin exam: Present: dry, intact, normal color, warm. Absent: diaphoretic, rash Internal Medicine: Result - Labs CBC & Chem 7: 07/05/16 03:58 07/05/16 03:58 Labs: Short CBC 07/04/16 07/05/16 Range/Units 21:08 03:58 WBC 4.7 D 5.0 (4.3-11.1) K/mcL Hgb 9.8 L 9.7 L (11.5-15.4) g/dL Hct 28.9 L 28.3 L (35.3-44.9) % Plt Count 81 L 88 L (140-400) K/mcL Neutrophils # 4.3 (1.6-8.9) K/mcL BMP 07/05/16 03:58 Sodium 132 L Potassium 3.3 L Chloride 98 Carbon Dioxide 26 BUN 16 Creatinine 0.92 Glucose 264 H Calcium 7.8 L Cardiac Enzymes 07/04/16 07/05/16 Range/Units 21:08 03:58 Troponin I 0.10 H* 0.05 H* (0-0.03) ng/mL - ABG Interpretation ABG results: ABG ABG pH 7.39 pH Units (7.32-7.45) 07/04/16 22:38 ABG pCO2 45 mmHg (35-45) 07/04/16 22:38 ABG pO2 87 mmHg (85-104) 07/04/16 22:38 ABG O2 Saturation 97 % (95-98) 07/04/16 22:38 PT/INR, D-dimer PT 15.3 Seconds (9.4-12.1) H 07/04/16 21:08
[2016-07-05] MEDS: *HR* LORazepam 1 MG TABLET PO PRN ×2 (12:54→23:06)
--- NOTE | 2016-07-05 15:36 | Electrocardiograph Report ---
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
--- NOTE | 2016-07-05 15:46 | Electrocardiograph Report ---
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
--- NOTE | 2016-07-05 15:56 | ECHO - Doppler Report ---
Echocardiogram Name: Amira Nieto Date of Study: 07/05/2016 Date: 1940 Ht: 66.0 in Medical Record#: [id number] Age: 75 Wt: 190.0 lb Gender: Female BSA: 1.96 Order #: [id number] Location: [facility] Room #: 3B22 Reading Physician: Daniel Mcdonald DO, YIN, SUSANNA WILSON Test Inspection Engineer: Monico Jolly RN Ordering Physician: Conner Oseguera MD Primary Physician: None Indications: Congestive heart failure Impressions: LVEF 60%. Normal LV chamber size and function. Mild concentric left ventricular hypertrophy. Mild left ventricular diastolic dysfunction. Atypical septal motion consistent with bundle branch block. Normal right ventricular structure and function. Moderate to severely dilated left atrium. Moderate mitral regurgitation. Mild tricuspid regurgitation. Mild-moderate pulmonary hypertension. Estimated RVSP is 46 mmHg. Left Ventricular Wall Motion: Rest Echo Findings All wall segments showed normal motion. Findings: Study Quality * Technically adequate exam. ECG Findings * Sinus rhythm with BBB. Left Ventricle * LVEF 60%. * Normal LV chamber size and function. * Mild concentric left ventricular hypertrophy. * Mild left ventricular diastolic dysfunction. * Atypical septal motion consistent with bundle branch block. Right Ventricle * Normal right ventricular structure and function. Left Atrium * Moderate to severely dilated left atrium. Right Atrium * Mild to moderately dilated right atrium. Interatrial Septum * Interatrial septum not well evaluated. Aortic Valve * Trileaflet aortic valve. * Mildly sclerotic aortic valve leaflets. * No aortic regurgitation. * No aortic stenosis. Mitral Valve * Mildly thickened mitral valve leaflets. * Moderate mitral regurgitation. * No mitral stenosis. Tricuspid Valve * Normal tricuspid valve structure. * Mild tricuspid regurgitation. * Mild-moderate pulmonary hypertension. * Estimated RVSP is 46 mmHg. * Estimated RA pressure is 5 mmHg. Pulmonic Valve * Normal pulmonic valve structure and function. * No pulmonic regurgitation. Aorta * Normally sized aortic root. Pericardium * The pericardium appears normal. IVC * Normal IVC dimensions and inspiratory collapse. Pulmonary Artery * Normal visualized portions of the main pulmonary artery. History Hypertension Diabetes Hypercholesteremia Years 10 Packs 0.5 Family History of CAD Valvular Disease 10/07/2014 a Previous Echo was performed. Measurements: BP: 161/ 71 2D Normal Values RVIDd: 3.00 cm <2.7 cm IVSd: 1.40 cm 0.6 - 1.0 cm LVIDd: 4.00 cm 3.7 - 5.6 cm LVPWd: 1.40 cm 0.6 - 1.1 cm LVIDs: 2.50 cm 1.5 - 3.6 cm LA: 4.60 cm 2.0 - 4.0cm %FS: 37.50 cm >25 % LVOT Diam: 2.00 cm LA volume: 160 Mitral Valve Peak E:.72 m/sec Peak A:1.01 m/sec E/A Ratio:0.7 Peak E' Lat Rohan:7.12 cm/s Peak E' Med Rohan:3.31 cm/s E/E' Lat Ratio:10.1 E/E' Med Ratio:21.6 Tricuspid Valve TV Regurg Peak Grad: 40.00mmHg TV Regurg Peak Rohan: 3.18m/sec Updated by Daniel Mcdonald DO, YIN, SUSANNA WILSON on 07/05/2016 3:52:47 PM electronically signed on 07/05/2016 3:53:23 PM with status of Final Wall Motion Clifford: 1=Normal, 2=Hypokinesis, 3=Akinesis, 4=Dyskinesis, 5=Aneurysmal, 6=Hyperkinetic, X=Not Visualized (Blank)=Missing
[2016-07-05] MEDS: *HR* LORazepam 1 MG TABLET PO SCH ×2 (15:59→20:01)
[2016-07-05] MEDS: Sucralfate 1 GM TABLET PO SCH ×2 (15:59→23:06)
[2016-07-05] MEDS: *HR* OxyCODONE/APAP 10/325 TABLET PO PRN (16:00)
[2016-07-05] MEDS: *HR* Heparin 5,000 UNIT/ML VIAL SQ SCH (18:00)
[2016-07-05] MEDS: VITAMIN D3 PO SCH (20:02)
[2016-07-05] MEDS: CALCIUM CARBONATE PO SCH (20:02)
[2016-07-06] MEDS: Insulin LISPRO 300 UNITS/3 ML VIAL SQ SCH ×2 (00:59→06:17)
[2016-07-06] MEDS: *HR* OxyCODONE/APAP 10/325 TABLET PO PRN ×2 (04:14→15:37)
[2016-07-06] MEDS: Levalbuterol Neb 1.25 MG/3 ML IH SCH ×3 (04:16→16:11)
[2016-07-06] MEDS: *HR* Heparin 5,000 UNIT/ML VIAL SQ SCH (06:17)
[2016-07-06] MEDS: Aspirin Enteric Coated 325 MG Tablet PO SCH (07:53)
[2016-07-06] MEDS: CALCIUM CARBONATE PO SCH (07:53)
[2016-07-06] MEDS: VITAMIN D3 PO SCH (07:53)
[2016-07-06] MEDS: Levofloxacin 750 MG/150 ML 750 MG/150 ML BAG IVPB SCH (07:53)
[2016-07-06] MEDS: *HR* LORazepam 1 MG TABLET PO SCH ×2 (07:53→11:50)
[2016-07-06] MEDS: Sucralfate 1 GM TABLET PO SCH ×2 (07:53→11:50)
[2016-07-06 08:40] LABS: Basophils % 0.3 %; Eosinophils # 0.2 K/mcL (0.0-0.6); Eosinophils % 2.6 %; Hematocrit 31.3 % (35.3-44.9); Hemoglobin 10.4 g/dL (11.5-15.4); Immature Granulocytes % 2.9 % (0-4); Immature Platelets 4.2 % (1.1-6.1); Lymphocytes # 0.8 K/mcL (0.6-4.6); Mean Corpuscular HGB Conc 33.2 g/dL (31.6-35.5); Mean Corpuscular Hemoglobin 28.6 pg (28.0-33.3); Mean Platelet Volume 8.9 fL (9.4-12.4); Monocytes # 0.9 K/mcL (0.0-1.3); Monocytes % 9.6 %; Platelet Count 148 K/mcL (140-400); Red Blood Count 3.64 M/mcL (3.82-4.97); Red Cell Distribution Width 14.2 % (11.5-14.5); Segmented Neutrophils % 75.6 %
[2016-07-06 08:52] LABS: BUN/Creatinine Ratio 21 (6-26); Blood Urea Nitrogen 19 mg/dL (7-20); Calcium 7.8 mg/dL (8.6-10.8); Carbon Dioxide 24 mEq/L (19-29); Chloride 95 mEq/L (98-109); Glucose 185 mg/dL (70-99); Osmolality,Calculated 275 (280-300); Potassium 3.8 mEq/L (3.5-4.5); Sodium 129 mEq/L (136-145); eGFR For African Americans > 60 (> 60); eGFR For Non-African Americans 59 (> 60)
[2016-07-06 08:59] LABS: Platelet Estimate Normal (Normal)
[2016-07-06] MEDS ORDERED: Lisinopril 20 MG TABLET PO SCH (09:00)
--- NOTE | 2016-07-06 09:27 | Internal Med Progress Note ---
Date of Encounter: 07/06/16 Time of Encounter: 09:26 - Assessment and plan (1) Acute respiratory failure Current Visit: Yes Status: Acute Assessment and plan: Acute respiratory failure secondary to multifocal pneumonia, less likely chronic diastolic chf. CXR revealed patchy bilateral perihilar and bibasilar airspace disease without pleural effusions. EKG revealed LBBB, no change from prior. Echo completed 07/05/16 revealed LVEF 60%, mild concentric left ventricular hypertrophy, mild left ventricular diastolic dysfunction, atypical septal motion consistent with bundle branch block, and moderate-severe dilated left atrium. Patient satting at 98% on 2L nasal cannula, appears comfortable in bed. WBC 9.2 Continue Levaquin d3, titrate supplemental oxygen. Qualifiers: Respiratory failure complication: hypoxia Qualified Code(s): J96.01 - Acute respiratory failure with hypoxia (2) Community acquired pneumonia Current Visit: Yes Status: Acute Assessment and plan: Continue per plan in assessments above. Continue Levaquin d3 Received 1 dose azithromycin and rocephin in the ED. (3) CHF (congestive heart failure) Current Visit: Yes Status: Chronic Assessment and plan: Echo completed 07/05/16. No acute exacerbation. Continue home medications for chronic disease management Qualifiers: Congestive heart failure type: diastolic Congestive heart failure chronicity: chronic Qualified Code(s): I50.32 - Chronic diastolic (congestive ) heart failure (4) Diabetes mellitus type 2 in obese Current Visit: Yes Status: Acute Assessment and plan: Continue with sliding scale insulin per protocol. Prandial insulin added. Glucose elevated at 185 (5) Hyponatremia Current Visit: Yes Status: Acute Assessment and plan: Sodium 129, osmolality 275. Patient appears to be euvolemic considering history of CHF and sedentary behavior. Continue to monitor. (6) Elevated troponin Current Visit: Yes Status: Acute Assessment and plan: Troponin elevated on admission at 0.04, 0.10, 0.05. Likely secondary to demand ischemia secondary to acute resp failure. (7) DVT prophylaxis Current Visit: Yes Status: Acute Assessment and plan: Continue with heparin. - Subjective Interval history: Patient reports doing much better than yesterday. Denies shortness of breath, though on 2L nasal cannula. Patient denies fevers, chills, sweats, headache, nausea, vomiting, chest pain, shortness of breath, abdominal pain, changes in bowels or bladder, weakness, or loss of sensation. - Constitutional Vitals: Temp Pulse Resp BP Pulse Ox 97.6 F 92 15 133/75 98 07/06/16 06:54 07/06/16 06:54 07/06/16 06:54 07/06/16 06:54 07/06/16 06:54 General appearance: Present: cooperative, A&O X 1, pleasant, no acute distress, answers questions appropriately - Head Head exam: Present: atraumatic, normal inspection, normocephalic - Eye Eye exam: Present: EOMI, normal appearance, PERRL - ENT ENT exam: Present: mucous membranes moist, normal exam, normal external ear exam , normal oropharynx - Neck Neck exam general surgery: Present: full ROM, normal inspection, supple, trachea midline. Absent: lymphadenopathy, tenderness - Respiratory Respiratory exam: Present: CTAB. Absent: rales, rhonchi, wheezes - Cardiovascular Cardiovascular exam: Present: RRR, +S1, +S2 - GI/Abdominal GI/Abdominal exam: Present: normal bowel sounds, soft. Absent: distended, guarding, tenderness - Extremities Exam Extremities exam: Present: full ROM, normal capillary refill, normal inspection , pedal edema (1+ pitting edema), warm, radial pulses palpable and symetrical. Absent: calf tenderness, tenderness - Neurological Exam Neurological exam: Present: alert, CN II-XII intact, no focal deficits, strengths equal and symetr throughout. Absent: motor sensory deficit, pronater drift, facial droop, speech deficit - Psychiatric Psychiatric exam: Present: normal affect, normal mood - Skin Skin exam: Present: dry, intact, normal color, warm. Absent: diaphoretic, pallor, rash Internal Medicine: Result - Labs CBC & Chem 7: 07/06/16 08:33 07/06/16 08:33 Labs: Short CBC 07/06/16 Range/Units 08:33 WBC 9.2 D (4.3-11.1) K/mcL Hgb 10.4 L (11.5-15.4) g/dL Hct 31.3 L (35.3-44.9) % Plt Count 148 D (140-400) K/mcL Neutrophils # 7.0 (1.6-8.9) K/mcL BMP 07/06/16 08:33 Sodium 129 L Potassium 3.8 Chloride 95 L Carbon Dioxide 24 BUN 19 Creatinine 0.92 Glucose 185 H Calcium 7.8 L - ABG Interpretation ABG results: ABG ABG pH 7.39 pH Units (7.32-7.45) 07/04/16 22:38 ABG pCO2 45 mmHg (35-45) 07/04/16 22:38 ABG pO2 87 mmHg (85-104) 07/04/16 22:38 ABG O2 Saturation 97 % (95-98) 07/04/16 22:38 PT/INR, D-dimer PT 15.3 Seconds (9.4-12.1) H 07/04/16 21:08 Consult Discharge Plan - Plan Referrals: NO,PCP [Primary Care Provider] -
--- NOTE | 2016-07-06 09:42 | Cardiology Progress Note ---
Date of Encounter: 07/06/16 Time of Encounter: 08:45 Assessment and Plan (1) Community acquired pneumonia Current Visit: Yes Status: Acute Patient empirically treated with Levaquin I suspect patient's hypoxemia is likely due to CAP Will defer to primary team for management (2) CHF (congestive heart failure) Current Visit: Yes Status: Chronic Acute heart failure is unlikely etiology of patient's respiratory failure Weight is down from baseline (203 in April, 189 at this visit), patient is euvolemic on exam ECHO demonstrates EF 60%, concentric LVH, mild LV diastolic dysfunction, atypical septal motion consistent with BBB, normal RV, mild to moderate pulmonary hypertension Suspect that pulmonary hypertension is related to untreated JUDY Mild heart failure may be contributing to clinical picture. However unlikely primary etiology. Repeat Continue home meds: beta-ngozi, lisinopril, simvastatin Discontinue IV diuresis Thank you for allowing us to participate in the care of your patient. We will sign off at this time. Please re-consult should future problems arise. (3) Obstructive sleep apnea Current Visit: Yes Status: Chronic ECHO demonstrates mild-moderate pulmonary hypertension Patient's history is suggestive of untreated JUDY Recommend further evaluation for JUDY and etiology of pulmonary hypertension (4) Elevated troponin Current Visit: Yes Status: Acute Elevated troponin likely secondary to pulmonary congestion and demand ischemia Troponin is trending down (0.04, 0.10, 0.05) EKG with finding of LBBB is nondiagnostic due to EKG in 2015 demonstrating LBBB (5) Hypomagnesemia Current Visit: Yes Status: Acute Will defer to primary team for management (6) Hypokalemia Current Visit: Yes Status: Resolved Will defer to primary team for management Discussion w patient/family: The assessment and plan as outlined above was discussed with the patient and/or family members who expressed understanding and agreement. All questions were answered. Thank you for involving us in the care of your patient. Please call with any questions. Subjective Principal diagnosis: Pneumonia Interval history: Patient lying in bed at time of interview. Admits that she does not feel well. However, she is unable to articulate why she is unwell. She admits to fatigue. Denies chest pain, dyspnea. Objective Vital Signs, Last 4 Hours Temp Pulse Resp BP Pulse Ox 07/06/16 06:54 97.6 F 92 15 133/75 98 General: Conversant, No Apparent Distress, Other (Oriented x 2 (does not know month)) HEENT: Atraumatic, Normocephaly Neck: No JVD Cardiac: Reg Rate and Rhythm, Normal S1 and S2, Other (S4 present) Lungs: Normal Breath Sounds, No Wheeze, Rales, Rhonchi Neuro: Alert and responsive, No focal deficits noted Abdomen: Soft, Non-Tender Skin: No rashes noted on visualized skin Musculoskeletal: No Chest Wall Tenderness Extremities: No Cyanosis, No Edema, Normal Pulses Results 07/06/16 08:33 07/06/16 08:33 Lab Results 07/05/16 07/06/16 07/06/16 09:47 08:33 08:33 WBC 9.2 D Hgb 10.4 L Hct 31.3 L Plt Count 148 D APTT 42.4 H Sodium 129 L Potassium 3.8 Chloride 95 L Carbon Dioxide 24 BUN 19 Creatinine 0.92 Glucose 185 H Calcium 7.8 L Consult Discharge Plan - Plan Referrals: NO,PCP [Primary Care Provider] -
[2016-07-06] MEDS ORDERED: Dextrose Gel 15 GM PO PRN ×2 (10:08)
[2016-07-06] MEDS ORDERED: D5% in Water 1,000 ML IV PRN (10:08)
[2016-07-06] MEDS ORDERED: *HR* Dextrose 50 % in Water (Syg) 50 ML SYRINGE IVP PRN (10:08)
[2016-07-06 11:57] LABS: Magnesium 1.8 mg/dL (1.6-2.6)
[2016-07-06] MEDS ORDERED: Insulin LISPRO 300 UNITS/3 ML VIAL SQ SCH ×3 (12:00)
[2016-07-06 15:26] VITALS: BP 150/67
--- NOTE | 2016-07-06 15:30 | Physician Discharge Referral ---
Home Health/Hosp Referral Info Transfer to: Home Health Attending Provider: Dr. Rhodes Provider in Charge Post Discharge: PCP - Diagnosis (1) Acute respiratory failure Priority: Primary Status: Acute (2) Community acquired pneumonia Priority: Primary Status: Acute (3) CHF (congestive heart failure) Priority: Secondary Status: Chronic (4) Diabetes mellitus type 2 in obese Priority: Secondary Status: Acute (5) Hyponatremia Priority: Secondary Status: Acute - Respiratory Orders Smoking Cessation: Smoking cessation has been advised. For more information, call the [place] Tobacco Quit Line at 0-335-WOWT-NOW. - Diet/Nutrition Diet/Nutrition Orders: No Added Salt (VENICE), No Concentrated Sweets - Activity Activity Orders: Walker Activity: List: up with assistance - Services Needed Following services are medically necessary services: Physical Therapy, Occupational Therapy Home Care Orders: Patient requires PT and OT evaluation and treatment. - Transfer Medications Home Medications: Amitriptyline [Elavil] 40 mg PO HS 07/04/16 [History] Calcium Carbonate/Vitamin D3 [Oyster Shell Calcium-Vit D Tab] 1 tab PO BID 07/04 [History] Donepezil HCl [Aricept] 5 mg PO DAILY 07/04/16 [History] Escitalopram [Lexapro] 20 mg PO DAILY 07/04/16 [History] Esomeprazole Magnesium [Nexium] 40 mg PO DAILY 07/04/16 [History] Ferrous Sulfate [Iron] 325 mg PO DAILY 07/04/16 [History] GlipiZIDE [Glucotrol] 5 mg PO BIDWM 07/04/16 [History] LORazepam [Ativan] 1 mg PO QID 07/04/16 [History] Lisinopril [Zestril] 20 mg PO DAILY 07/04/16 [History] Metformin [Glucophage] 500 mg PO BIDWM 07/04/16 [History] Metoprolol [Lopressor] 25 mg PO BID 07/04/16 [History] Oxycodone HCl/Acetaminophen [Percocet 10-325 mg Tablet] 1 tab PO Q8H PRN [History] Potassium Chloride [K-Tab ER] 10 meq PO BID 07/04/16 [History] Risedronate Sodium [Actonel] 35 mg PO QWEEK 07/04/16 [History] Simvastatin [Zocor] 20 mg PO HS 07/04/16 [History] Sucralfate [Carafate] 1 gm PO QIDAC 07/04/16 [History] Allergies/Adverse Reactions: Allergies haloperidol Allergy (Verified 07/04/16 19:37) Hallucinating Certification: Further, I certify that my clinical findings support that this patient is homebound (i.e. absences from home require considerable and taxing effort and are for medical reasons or hindu services or infrequently or short duration when for other reasons) because: Homebound Reason: Patient requires assistance of a person or device to safely leave home Attestation: My signature below is to certify that this patient is under my care and that I, or nurse practitioner, or a physician's account management assistant working with me, has a face-to -face encounter with this patient.
--- NOTE | 2016-07-06 15:33 | Discharge Summary ---
<Nelson Wakefield - Last Filed: 07/06/16 15:54> Date of Encounter: 07/06/16 Time of Encounter: 15:31 - Discharge Diagnosis (1) Acute respiratory failure Priority: Primary Status: Acute Comments: Acute respiratory failure secondary to multifocal pneumonia, less likely chronic diastolic chf. CXR revealed patchy bilateral perihilar and bibasilar airspace disease without pleural effusions. EKG revealed LBBB, no change from prior. Echo completed 07/05/16 revealed LVEF 60%, mild concentric left ventricular hypertrophy, mild left ventricular diastolic dysfunction, atypical septal motion consistent with bundle branch block, and moderate-severe dilated left atrium. Patient satting at 98% on 2L nasal cannula, appears comfortable in bed. WBC 9.2 Qualifiers: Respiratory failure complication: hypoxia Qualified Code(s): J96.01 - Acute respiratory failure with hypoxia (2) Community acquired pneumonia Priority: Primary Status: Acute Comments: Continue per plan in assessments above. Continue Levaquin d3 Received 1 dose azithromycin and rocephin in the ED. (3) CHF (congestive heart failure) Priority: Secondary Status: Chronic Comments: Echo completed 07/05/16. No acute exacerbation. Continue home medications for chronic disease management Qualifiers: Congestive heart failure type: diastolic Congestive heart failure chronicity: chronic Qualified Code(s): I50.32 - Chronic diastolic (congestive ) heart failure (4) Diabetes mellitus type 2 in obese Priority: Secondary Status: Chronic Comments: Continue with sliding scale insulin per protocol. Prandial insulin added. Glucose elevated at 185 (5) Hyponatremia Priority: Secondary Status: Chronic Comments: Sodium 129, osmolality 275. Patient appears to be euvolemic considering history of CHF and sedentary behavior. Continue to monitor. - Discharge Medications Prescriptions: Levofloxacin [Levaquin] 750 mg PO DAILY #7 tablet Home Medications: Amitriptyline [Elavil] 40 mg PO HS 07/04/16 [History] Calcium Carbonate/Vitamin D3 [Oyster Shell Calcium-Vit D Tab] 1 tab PO BID 07/04 [History] Donepezil HCl [Aricept] 5 mg PO DAILY 07/04/16 [History] Escitalopram [Lexapro] 20 mg PO DAILY 07/04/16 [History] Esomeprazole Magnesium [Nexium] 40 mg PO DAILY 07/04/16 [History] Ferrous Sulfate [Iron] 325 mg PO DAILY 07/04/16 [History] GlipiZIDE [Glucotrol] 5 mg PO BIDWM 07/04/16 [History] LORazepam [Ativan] 1 mg PO QID 07/04/16 [History] Lisinopril [Zestril] 20 mg PO DAILY 07/04/16 [History] Metformin [Glucophage] 500 mg PO BIDWM 07/04/16 [History] Metoprolol [Lopressor] 25 mg PO BID 07/04/16 [History] Oxycodone HCl/Acetaminophen [Percocet 10-325 mg Tablet] 1 tab PO Q8H PRN [History] Potassium Chloride [K-Tab ER] 10 meq PO BID 07/04/16 [History] Risedronate Sodium [Actonel] 35 mg PO QWEEK 07/04/16 [History] Simvastatin [Zocor] 20 mg PO HS 07/04/16 [History] Sucralfate [Carafate] 1 gm PO QIDAC 07/04/16 [History] Levofloxacin [Levaquin] 750 mg PO DAILY #7 tablet 07/06/16 [Rx] Allergies/Adverse Reactions: Allergies haloperidol Allergy (Verified 07/04/16 19:37) Hallucinating Procedures/tests Complete & Pending: Procedures Performed prior 72 hours Category Date Time Status ECG 12 lead ECG [ECG] Routine Y 07/05/16 03:40 Completed Chest X-Ray 07/04/16 14:45 IMPRESSION: Findings likely represent CHF. Multifocal pneumonia can give similar findings. D/ / Garry Zuñiga MD / Garry Zuñiga MD Interpreting Provider: Garry Zuñiga MD Date of admission: 07/04/16 20:35 Primary care physician: Sy Beaver, Consults: 07/04/16 20:53 Consult to Bitumen Plant Operator [CONS] Routine Reason for SW Consult: Potential need for ECF placement 07/05/16 11:15 Consult to Occupational Therapy [CONS] Routine Comment: Evaluate, develop and implement POC Consult to Physical Therapy [CONS] Routine Comment: Evaluate, develop and implement POC Discharging clinician: Miguel Rhodes (Nelson Wakefield) Anticipated date of discharge: 07/06/16 - Patient Status Disposition: Home Health Service Condition: Fair Functional capacity at discharge: uses cane/walker Overall status at discharge: patient is progressing back to baseline - Discharge Instructions Instructions: Levofloxacin (By mouth), Community-acquired Pneumonia (DC), Community-acquired Pneumonia (GEN) Follow Up With: Sy Beaver DO [Primary Care Provider] - 07/12/16 9:30 am Anup Quintanilla CNP [Advanced Practice Nurse] - 07/27/16 2:00 pm Additional Instructions: Follow up with your primary care provider in 7 days regarding this hospital admission. Home health will provide physical therapy and occupational therapy evaluation and treatment as needed. Complete the entire course of antibiotics as directed. - Diet and Activity Activity: ambulate only with your walker, increase activity as tolerated Diet: diabetic diet, low salt diet Interval History: Patient reports doing much better than yesterday. Denies shortness of breath, though on 2L nasal cannula. Patient denies fevers, chills, sweats, headache, nausea, vomiting, chest pain, shortness of breath, abdominal pain, changes in bowels or bladder, weakness, or loss of sensation. Hospital course: Ms. Nieto is a 75 year old female with history of dementia, diabetes, and hypertension who presented with complaint of shortness of breath and non productive cough for 3 days prior to arrival. CXR revealed patchy bilateral perihilar and bibasilar airspace disease without pleural effusions. EKG revealed LBBB, no change from prior. Echo revealed EF of 60%, mild to moderate pulmonary hypertension. Patient was treated with Lasix initially suspecting dyspnea was secondary to acute on chronic diastolic chf. Patient was also started on empiric Levaquin for possible Community acquire pneumonia. Based on studies, the acute respiratory failure was likely secondary to multifocal pneumonia. Patient continued to sat well on 4L, therefore patient was titrated successfully off supplemental oxygen today. Patient to be discharged with home health and to complete levaquin antibiotics for CAP. Patient to follow up with PCP in the next 7 days regarding this hospital admission. - Time Spent with Patient Total time spent providing and/or coordinating discharge services: Less than 30 minutes - Constitutional Vitals: Temp Pulse Resp BP Pulse Ox 99.4 F 102 16 150/67 102 H 07/06/16 15:25 07/06/16 15:25 07/06/16 15:25 07/06/16 15:25 07/06/16 15:25 General appearance: Present: cooperative, A&O X 1, pleasant, no acute distress, answers questions appropriately - Head Head exam: Present: atraumatic, normal inspection, normocephalic - Eye Eye exam: Present: EOMI, normal appearance, PERRL - ENT ENT exam: Present: mucous membranes moist, normal exam, normal external ear exam , normal oropharynx - Neck Neck exam general surgery: Present: full ROM, normal inspection, supple, trachea midline. Absent: lymphadenopathy, tenderness - Respiratory Respiratory exam: Present: CTAB. Absent: rales, rhonchi, wheezes - Cardiovascular Cardiovascular exam: Present: RRR, +S1, +S2 - GI/Abdominal GI/Abdominal exam: Present: normal bowel sounds, soft. Absent: distended, guarding, tenderness - Extremities Exam Extremities exam: Present: full ROM, normal capillary refill, normal inspection , pedal edema (1+ pitting edema), warm, radial pulses palpable and symetrical. Absent: calf tenderness, tenderness - Neurological Exam Neurological exam: Present: alert, CN II-XII intact, normal gait, reflexes normal, no focal deficits, strengths equal and symetr throughout. Absent: motor sensory deficit, facial droop, speech deficit - Psychiatric Psychiatric exam: Present: normal affect, normal mood - Skin Skin exam: Present: dry, intact, normal color, warm. Absent: diaphoretic, erythema, pallor, rash <Miguel Rhodes - Last Filed: 07/06/16 16:11> Procedures/tests Complete & Pending: Procedures Performed prior 72 hours Category Date Time Status ECG 12 lead ECG [ECG] Routine Y 07/05/16 03:40 Completed Date of admission: 07/04/16 20:35 Primary care physician: yS Beaver, Consults: 07/04/16 20:53 Consult to Bitumen Plant Operator [CONS] Routine Reason for SW Consult: Potential need for ECF placement 07/05/16 11:15 Consult to Occupational Therapy [CONS] Routine Comment: Evaluate, develop and implement POC Consult to Physical Therapy [CONS] Routine Comment: Evaluate, develop and implement POC Hospital course: Ms. Nieto is a 75 year old female - Time Spent with Patient Total time spent providing and/or coordinating discharge services: - Constitutional Vitals: Temp Pulse Resp BP Pulse Ox 99.4 F 102 16 150/67 102 H 07/06/16 15:25 07/06/16 15:25 07/06/16 15:25 07/06/16 15:25 07/06/16 15:25 - Attending Attestation I examined this patient and my medical decision-making was reviewed with the ELEVATOR SERVICE MECHANIC/PA/Advanced Practice Nurse/Resident Physician. I agree with the documented findings, disposition and treatment plan as described except to the extent set forth below. 75 Y/O F with dementia, CHFpEF admitted for management of acute hypoxic respiratory failure secondary to multifocal pneumonia and suspected acute on chronic CHF Seen at bedside no obvious distress She no longer requires o2 Chest is clear at this time, HS S1, S2, s3. Abdomen is benign, no pedal edema, patient is euvolemic on exam Labs and imaging reviewed Chronic hyponatremia, stable to discharge home on levaquin , continue other home meds, follow up with PCP Rest of details as in resident's documentation.
[2016-07-07 18:37] LABS: CK-MB (CK isoenzymes) 0 % (0-4); CK-MM (CK-isoenzymes) 95 % (96-100)
[2016-07-07 18:37] LABS: CK-MB (CK isoenzymes) 0 % (0-4); CK-MM (CK-isoenzymes) 93 % (96-100)
[2016-07-08 07:23] LABS: CK Total (Ck Isoenzymes) 70 U/L (20-180); CK-BB (CK isoenzymes) 0 % (0-0)
[2016-07-08 07:27] LABS: CK Total (Ck Isoenzymes) 50 U/L (20-180); CK-BB (CK isoenzymes) 0 % (0-0)
== END 2016-07-06 16:43 | disposition home health service (06) | DRG 193 ==
LOC: EMEROO 14:40 → 3BNU 14:40 → SUATTDRO 20:35
PROVIDERS: ADMIT Nurse Practitioner Acute Care; ATTEND Internal Medicine

== ENCOUNTER 2017-11-12 14:03 | Inpatient (IN) ==
[2017-11-12] MEDS ORDERED: methylPREDNISolone 125 MG/2 ML VIAL IVP ONE (14:13)
[2017-11-12] MEDS ORDERED: Ipratropium/Albuterol Neb 3 ML IH ONE (14:13)
--- NOTE | 2017-11-12 14:38 | Emergency Department Note ---
Disposition Clinical Impression: Acute exacerbation of CHF (congestive heart failure) Disposition: Admitted As Inpatient Condition: Fair Referrals: Sy Beaver DO [Primary Care Provider] - Forms: ED Satisfaction Letter General Adult HPI - General Chief complaint: ED Shortness of Breath/Dyspnea Stated complaint: KAYLA Time Seen by Provider: 11/12/17 14:04 Source: patient Mode of arrival: EMS Limitations: altered mental status (dementia), other Nursing Notes Reviewed: Yes Vital Signs Reviewed: Yes - History of Present Illness HPI Narrative: Patient is a 69-year-old female presenting with difficulty breathing. Patient has history of CHF, COPD, dementia and is a poor historian. Per EMS and family in the room, patient has been having difficulty breathing over the past couple of days that is progressively gotten worse. Her son was at the patient's home earlier today when the patient began having increased difficulty breathing, increased cough, and the patient was placed on an at monitoring oxygen saturation device at home and found to be in the low 50s, patient's family immediately called EMS, when they arrived patient was satting around 70% was placed on 2 L of oxygen and was up to 98% in route. Patient is not on oxygen at home. Family states the patient had a fall a couple of days ago that was unwitnessed, believed to be on her left shoulder, no abrasions or pain noted at this time. Family does note that she seems a little bit more confused than baseline however with her dementia this is difficult to tell for them. Patient currently denies any pain, abdominal pain, chest pain, weakness or numbness tingling. Pain Scale: 0 - Related Data Home Medications Medication Instructions Recorded Confirmed Amitriptyline [Elavil] 40 mg PO HS 07/04/16 11/12/17 Calcium Carbonate/Vitamin D3 1 tab PO BID 07/04/16 09/20/17 [Oyster Shell Calcium-Vit D Tab] Donepezil HCl [Aricept] 5 mg PO DAILY 07/04/16 09/20/17 Escitalopram [Lexapro] 20 mg PO DAILY 07/04/16 09/20/17 Esomeprazole Magnesium [Nexium] 40 mg PO DAILY 07/04/16 09/20/17 Ferrous Sulfate [Iron] 325 mg PO DAILY 07/04/16 09/20/17 LORazepam [Ativan] 1 mg PO QID 07/04/16 11/12/17 Lisinopril [Zestril] 20 mg PO DAILY 07/04/16 09/20/17 Metoprolol [Lopressor] 25 mg PO BID 07/04/16 09/20/17 Oxycodone HCl/Acetaminophen 1 tab PO Q8H PRN 07/04/16 11/12/17 [Percocet 10-325 mg Tablet] Potassium Chloride [K-Tab ER] 10 meq PO BID 07/04/16 09/20/17 Risedronate Sodium [Actonel] 35 mg PO QWEEK 07/04/16 09/20/17 Simvastatin [Zocor] 20 mg PO HS 07/04/16 09/20/17 Sucralfate [Carafate] 1 gm PO QIDAC 07/04/16 09/20/17 glipiZIDE [Glucotrol] 5 mg PO BIDWM 07/04/16 09/20/17 metFORMIN [Glucophage] 500 mg PO BIDWM 07/04/16 09/20/17 Allergies Allergy/AdvReac Type Severity Reaction Status Date / Time haloperidol Allergy Hallucinati Verified 09/09/17 13:46 ng All systems ED: reviewed and negative except as stated. Review of Systems: As Per HPI Limitations: ROS unobtainable due to patients medical condition Cardiovascular: Reports: dyspnea on exertion Respiratory: Reports: cough, dyspnea, wheezes, sputum production Past Medical History - Past Medical History Medical history: Reports: cirrhosis, dementia, diabetes, hypertension Surgical history: Reports: hysterectomy Psychiatric history: Reports: depression - Social History Smoking Status: Never smoker Smokeless Tobacco Status: No Alcohol use: Reports: none Drug use: Reports: none Physical Exam - General Limitations: other (dementia, unable to answer questions during examination other than saying no pain) General appearance: alert, in no apparent distress - Head Head exam: atraumatic, normocephalic - Eye Eye exam: Present: normal appearance - ENT ENT exam: normal exam - Chest Chest inspection: Present: normal inspection, symmetric chest wall rise - Respiratory Respiratory exam: Present: wheezes, prolonged expiratory phase, other (rales at bases). Absent: respiratory distress (on 1.5 L in the room, Sat at 98%), accessory muscle use - Cardiovascular Cardiovascular exam: Present: regular rate, normal rhythm - Abdominal Exam Abdominal exam: Present: soft, Non-Tender, distention, normal bowel sounds. Absent: guarding, rebound, rigidity - Extremities Exam Extremities exam: Present: normal inspection, normal capillary refill, pedal edema (1+). Absent: tenderness - Expanded Lower Extremity Exam Neurovascular/Tendon exam: Present: normal capillary refill. Absent: pulse deficit, sensory deficit - Neurological Exam Neurological exam: Present: alert, other (unable to perform full neuro exam secondary to patient dementia, unable to follow directions) - Psychiatric Psychiatric exam: Present: normal affect - Skin Skin exam: Present: warm, dry, intact Course Course Narrative: We will order CBC, BMP, BNP, troponin, chest x-ray, EKG, we will order DuoNeb for patient with audible wheezing with respiratory therapy. We will order a CT of the head given recent fall Vital Signs Temperature 98.2 F 11/12/17 14:04 Pulse Rate 99 11/12/17 14:04 Respiratory Rate 18 11/12/17 14:04 Blood Pressure 173/91 11/12/17 14:04 O2 Sat by Pulse Oximetry 99 11/12/17 14:04 Temperature 98.2 F 11/12/17 14:04 Pulse Rate 93 11/12/17 14:19 Respiratory Rate 18 11/12/17 14:19 Blood Pressure 173/91 11/12/17 14:19 O2 Sat by Pulse Oximetry 97 11/12/17 14:19 Oxygen Delivery Oxygen Delivery Nasal Cannula Medical Decision Making - MDM Narrative Medical decision making narrative: Patient is a 77-year-old female presenting with difficulty breathing. At the emergency department, patient was brought in via EMS on 2 L of oxygen was titrated down to 1.5 L and is satting in the 98%. Patient is poor historian with dementia and is unable to give history. Patient's EKG is stable without acute findings, no unchanged from EKG performed on 07/04/16. Patient was given DuoNeb treatment immediately with respiratory therapy and patient's wheezes have decreased at this point in time, patient overall appears to be less short of breath at this time. Further evaluation has showed chest x-ray with chronic cardiomegaly and read as mild CHF. UA at this time is negative for infectious etiology. CT noncontrast of the head was negative for intracranial bleed. Evaluation in the emergency department reveal a negative troponin, chronic laboratory changes that are at baseline for patient with hemoglobin 11.4, lactic acid elevated at 2.4 trending up to 2.8 on repeat most likely due to prolonged hypoxia, BNP elevated at 300 further suggesting acute exacerbation of heart failure. At this time, patient is thought to be hypoxic due to pulmonary congestion, gave patient 40 milligrams of Lasix. Patient has been suggested to be admitted for most likely etiology of acute exacerbation CHF vs hypoxia secondary to pulmonary congestion. Attending spoke with hospitalist and agreed to admit patient at this time, also recommended ABG, procalcitonin, blood cultures, start antibiotics. - Medical Records Medical records reviewed: Yes I reviewed the patient's medical records. - Lab Data Lab results reviewed: Yes I reviewed the patient's lab results. Result diagrams: 11/12/17 14:13 11/12/17 14:13 Lab Results 11/12/17 11/12/17 11/12/17 Range/Units 14:13 14:13 14:13 WBC 3.5 L (4.3-11.1) K/mcL RBC 3.82 (3.82-4.97) M/mcL Hgb 11.4 L (11.5-15.4) g/dL Hct 34.3 L (35.3-44.9) % MCV 89.8 (83.0-100.0) fL MCH 29.8 (28.0-33.3) pg MCHC 33.2 (31.6-35.5) g/dL RDW 15.9 H (11.5-14.5) % Plt Count 66 L (140-400) K/mcL MPV 9.5 (9.4-12.4) fL Immature Gran % 0.3 (0-4) % Seg Neutrophils % 79.5 % Lymphocytes % 11.1 % Monocytes % 7.4 % Eosinophils % 1.1 % Basophils % 0.6 % Neutrophils # 2.8 (1.6-8.9) K/mcL Lymphocytes # 0.4 L (0.6-4.6) K/mcL Monocytes # 0.3 (0.0-1.3) K/mcL Eosinophils # 0.0 (0.0-0.6) K/mcL Basophils # 0.0 (0.0-0.2) K/mcL Immature Plt Fraction 1.9 (1.1-6.1) % ABG pH (7.32-7.45) pH Units ABG pCO2 (35-45) mmHg ABG pO2 (85-104) mmHg ABG HCO3 (21-27) mEq/L ABG Total CO2 (20-26) mEq/L ABG O2 Saturation (95-98) % ABG Base Excess (-2 to 3) mEq/L O2 Delivery Device Inspired O2 (1-15=lpm [id number]=%) Sodium 137 (136-145) mEq/L Potassium 3.4 L (3.5-5.1) mEq/L Chloride 101 (98-107) mEq/L Carbon Dioxide 27 (23-29) mEq/L BUN 12 (8-23) mg/dL Creatinine 0.78 (0.60-1.20) mg/dL Est GFR ( Amer) > 60 (> 60) Est GFR (Non-Af Amer) > 60 (> 60) BUN/Creatinine Ratio 15 (6-26) Glucose 169 H (70-105) mg/dL Calculated Osmolality 288 (280-300) Lactic Acid (0.5-2.2) mmol/L Calcium 8.9 (8.6-10.3) mg/dL Troponin I 0.03 (< 0.04) ng/mL B-Natriuretic Peptide 302 H (Less than 100) pg/mL Urine Color (Yellow) Urine Clarity (Clear) Urine pH (5.0-8.0) pH Units Ur Specific [place] (1.010-1.025) Urine Protein (Neg-Trace) mg/dL Urine Glucose (UA) (Normal) mg/dL Urine Ketones (Negative) mg/dL Urine Blood (Negative) Urine Nitrite (Negative) Urine Bilirubin (Negative) Urine Urobilinogen (Normal) mg/dL Ur Leukocyte Esterase (Negative) Urine Microscopic RBC (0-3) per hpf Urine Microscopic WBC (0-3) per hpf Ur Squamous Epith Cells (None-Few) per lpf Urine Bacteria (None-Few) per hpf Hyaline Casts (None-Few) per lpf 11/12/17 11/12/17 11/12/17 Range/Units 14:55 16:10 16:55 WBC (4.3-11.1) K/mcL RBC (3.82-4.97) M/mcL Hgb (11.5-15.4) g/dL Hct (35.3-44.9) % MCV (83.0-100.0) fL MCH (28.0-33.3) pg MCHC (31.6-35.5) g/dL RDW (11.5-14.5) % Plt Count (140-400) K/mcL MPV (9.4-12.4) fL Immature Gran % (0-4) % Seg Neutrophils % % Lymphocytes % % Monocytes % % Eosinophils % % Basophils % % Neutrophils # (1.6-8.9) K/mcL Lymphocytes # (0.6-4.6) K/mcL Monocytes # (0.0-1.3) K/mcL Eosinophils # (0.0-0.6) K/mcL Basophils # (0.0-0.2) K/mcL Immature Plt Fraction (1.1-6.1) % ABG pH 7.40 (7.32-7.45) pH Units ABG pCO2 46 H (35-45) mmHg ABG pO2 72 L (85-104) mmHg ABG HCO3 28 H (21-27) mEq/L ABG Total CO2 30 H (20-26) mEq/L ABG O2 Saturation 94 L (95-98) % ABG Base Excess 3 (-2 to 3) mEq/L O2 Delivery Device Cannula Inspired O2 2.0 (1-15=lpm [id number]=%) Sodium (136-145) mEq/L Potassium (3.5-5.1) mEq/L Chloride (98-107) mEq/L Carbon Dioxide (23-29) mEq/L BUN (8-23) mg/dL Creatinine (0.60-1.20) mg/dL Est GFR ( Amer) (> 60) Est GFR (Non-Af Amer) (> 60) BUN/Creatinine Ratio (6-26) Glucose (70-105) mg/dL Calculated Osmolality (280-300) Lactic Acid 2.4 H 2.8 H (0.5-2.2) mmol/L Calcium (8.6-10.3) mg/dL Troponin I (< 0.04) ng/mL B-Natriuretic Peptide (Less than 100) pg/mL Urine Color (Yellow) Urine Clarity (Clear) Urine pH (5.0-8.0) pH Units Ur Specific [place] (1.010-1.025) Urine Protein (Neg-Trace) mg/dL Urine Glucose (UA) (Normal) mg/dL Urine Ketones (Negative) mg/dL Urine Blood (Negative) Urine Nitrite (Negative) Urine Bilirubin (Negative) Urine Urobilinogen (Normal) mg/dL Ur Leukocyte Esterase (Negative) Urine Microscopic RBC (0-3) per hpf Urine Microscopic WBC (0-3) per hpf Ur Squamous Epith Cells (None-Few) per lpf Urine Bacteria (None-Few) per hpf Hyaline Casts (None-Few) per lpf 11/12/17 11/12/17 Range/Units 17:18 18:18 WBC (4.3-11.1) K/mcL RBC (3.82-4.97) M/mcL Hgb (11.5-15.4) g/dL Hct (35.3-44.9) % MCV (83.0-100.0) fL MCH (28.0-33.3) pg MCHC (31.6-35.5) g/dL RDW (11.5-14.5) % Plt Count (140-400) K/mcL MPV (9.4-12.4) fL Immature Gran % (0-4) % Seg Neutrophils % % Lymphocytes % % Monocytes % % Eosinophils % % Basophils % % Neutrophils # (1.6-8.9) K/mcL Lymphocytes # (0.6-4.6) K/mcL Monocytes # (0.0-1.3) K/mcL Eosinophils # (0.0-0.6) K/mcL Basophils # (0.0-0.2) K/mcL Immature Plt Fraction (1.1-6.1) % ABG pH (7.32-7.45) pH Units ABG pCO2 (35-45) mmHg ABG pO2 (85-104) mmHg ABG HCO3 (21-27) mEq/L ABG Total CO2 (20-26) mEq/L ABG O2 Saturation (95-98) % ABG Base Excess (-2 to 3) mEq/L O2 Delivery Device Inspired O2 (1-15=lpm [id number]=%) Sodium (136-145) mEq/L Potassium (3.5-5.1) mEq/L Chloride (98-107) mEq/L Carbon Dioxide (23-29) mEq/L BUN (8-23) mg/dL Creatinine (0.60-1.20) mg/dL Est GFR ( Amer) (> 60) Est GFR (Non-Af Amer) (> 60) BUN/Creatinine Ratio (6-26) Glucose (70-105) mg/dL Calculated Osmolality (280-300) Lactic Acid 2.7 H (0.5-2.2) mmol/L Calcium (8.6-10.3) mg/dL Troponin I (< 0.04) ng/mL B-Natriuretic Peptide (Less than 100) pg/mL Urine Color Dark Yellow (Yellow) Urine Clarity Clear (Clear) Urine pH 6.5 (5.0-8.0) pH Units Ur Specific [place] 1.016 (1.010-1.025) Urine Protein 30 H (Neg-Trace) mg/dL Urine Glucose (UA) Normal (Normal) mg/dL Urine Ketones Negative (Negative) mg/dL Urine Blood Negative (Negative) Urine Nitrite Negative (Negative) Urine Bilirubin Negative (Negative) Urine Urobilinogen Normal (Normal) mg/dL Ur Leukocyte Esterase Small H (Negative) Urine Microscopic RBC 5-15 H (0-3) per hpf Urine Microscopic WBC 5-15 H (0-3) per hpf Ur Squamous Epith Cells Many H (None-Few) per lpf Urine Bacteria None Seen (None-Few) per hpf Hyaline Casts None Seen (None-Few) per lpf - Radiology Data Radiology results reviewed: Yes I reviewed the patient's radiology results. Chest X-Ray 11/12/17 14:13 IMPRESSION: Findings most compatible with mild CHF. Recommend clinical exclusion of pneumonia D/ / Quan García MD / Quan García MD Interpreting Provider: Quan García MD Head CT 11/12/17 14:43 IMPRESSION: No acute intracranial abnormality. D/ / Jerald Stephen MD / Jerald Stephen MD Interpreting Provider: Jerald Stephen MD - EKG Data EKG #1 EKG attestation: Yes I reviewed and interpreted this EKG. EKG results narrative: EKG performed 2017 at 1420 with ventricular rate of 93 bpm, regular rhythm, left axis deviation, TX interval of 182, QRS duration of 170, QT of 421, QTc of 471, left bundle branch block noted,No evidence of ST elevation or depression. Interpretation: no acute changes (07/04/16) S.B.A.R. - S.B.A.Alex Situation: Demographics Background: Presenting Complaint, Relevant PMH, Meds, & Allergies Assessment: Vital Signs, Course and respsone to treatment, Exam Concerns, Pertinant Lab Results Recommendation: Barrier(s) to disposition, Recommendation based on pending studies, treatments, or consults S.B.A.RBebeto Report Given to: Dr. Victorina Reeder Repor Time: 17:30 (accepted) Attestation Statement - Attestation Attestation: I, Olvin Yanez DO, examined this patient [id number] and my medical decision-making was reviewed with Dr. Enrrique Meza Resident Physician. I agree with the documented findings, disposition and treatment plan as described except to the extent set forth below. Please see my progress notes for details.
[2017-11-12 15:11] LABS: Basophils % 0.6 %; Eosinophils % 1.1 %; Hemoglobin 11.4 g/dL (11.5-15.4); Red Cell Distribution Width 15.9 % (11.5-14.5)
[2017-11-12 15:12] LABS: Hematocrit 34.3 % (35.3-44.9); Immature Granulocytes % 0.3 % (0-4); Immature Platelets 1.9 % (1.1-6.1); Lymphocytes # 0.4 K/mcL (0.6-4.6); Lymphocytes % 11.1 %; Mean Corpuscular HGB Conc 33.2 g/dL (31.6-35.5); Mean Corpuscular Hemoglobin 29.8 pg (28.0-33.3); Mean Corpuscular Volume 89.8 fL (83.0-100.0); Mean Platelet Volume 9.5 fL (9.4-12.4); Monocytes # 0.3 K/mcL (0.0-1.3); Monocytes % 7.4 %; Neutrophils # 2.8 K/mcL (1.6-8.9); Red Blood Count 3.82 M/mcL (3.82-4.97); Segmented Neutrophils % 79.5 %
[2017-11-12 15:15] LABS: Platelet Count 66 K/mcL (140-400)
[2017-11-12 15:29] LABS: BUN/Creatinine Ratio 15 (6-26); Blood Urea Nitrogen 12 mg/dL (8-23); Calcium 8.9 mg/dL (8.6-10.3); Carbon Dioxide 27 mEq/L (23-29); Chloride 101 mEq/L (98-107); Glucose 169 mg/dL (70-105); Osmolality,Calculated 288 (280-300); Potassium 3.4 mEq/L (3.5-5.1); Sodium 137 mEq/L (136-145); eGFR For African Americans > 60 (> 60); eGFR For Non-African Americans > 60 (> 60)
[2017-11-12 15:30] LABS: Troponin I 0.03 ng/mL (< 0.04)
--- NOTE | 2017-11-12 16:14 | Emergency Department Note ---
Disposition Clinical Impression: Acute exacerbation of CHF (congestive heart failure), Hypoxia Disposition: Admitted As Inpatient Condition: Fair Referrals: Sy Beaver DO [Primary Care Provider] - Forms: ED Satisfaction Letter Time of Disposition: 18:43 General Adult HPI - General Chief complaint: ED Shortness of Breath/Dyspnea Stated complaint: KAYLA Time Seen by Provider: 11/12/17 14:04 Source: patient Mode of arrival: EMS Limitations: other (dementia, unable to answer questions during examination other than saying no pain) - History of Present Illness Pain Scale: 0 - Related Data Home Medications Medication Instructions Recorded Confirmed Amitriptyline [Elavil] 40 mg PO HS 07/04/16 11/12/17 Calcium Carbonate/Vitamin D3 1 tab PO BID 07/04/16 09/20/17 [Oyster Shell Calcium-Vit D Tab] Donepezil HCl [Aricept] 5 mg PO DAILY 07/04/16 09/20/17 Escitalopram [Lexapro] 20 mg PO DAILY 07/04/16 09/20/17 Esomeprazole Magnesium [Nexium] 40 mg PO DAILY 07/04/16 09/20/17 Ferrous Sulfate [Iron] 325 mg PO DAILY 07/04/16 09/20/17 LORazepam [Ativan] 1 mg PO QID 07/04/16 11/12/17 Lisinopril [Zestril] 20 mg PO DAILY 07/04/16 09/20/17 Metoprolol [Lopressor] 25 mg PO BID 07/04/16 09/20/17 Oxycodone HCl/Acetaminophen 1 tab PO Q8H PRN 07/04/16 11/12/17 [Percocet 10-325 mg Tablet] Potassium Chloride [K-Tab ER] 10 meq PO BID 07/04/16 09/20/17 Risedronate Sodium [Actonel] 35 mg PO QWEEK 07/04/16 09/20/17 Simvastatin [Zocor] 20 mg PO HS 07/04/16 09/20/17 Sucralfate [Carafate] 1 gm PO QIDAC 07/04/16 09/20/17 glipiZIDE [Glucotrol] 5 mg PO BIDWM 07/04/16 09/20/17 metFORMIN [Glucophage] 500 mg PO BIDWM 07/04/16 09/20/17 Allergies Allergy/AdvReac Type Severity Reaction Status Date / Time haloperidol Allergy Hallucinati Verified 09/09/17 13:46 ng Cardiovascular: Reports: dyspnea on exertion Respiratory: Reports: cough, dyspnea, wheezes, sputum production Past Medical History - Past Medical History Medical history: Reports: cirrhosis, dementia, diabetes, hypertension Surgical history: Reports: hysterectomy Psychiatric history: Reports: depression - Social History Smoking Status: Never smoker Smokeless Tobacco Status: No Alcohol use: Reports: none Drug use: Reports: none Physical Exam - General Limitations: other (dementia, unable to answer questions during examination other than saying no pain) General appearance: alert, in no apparent distress Course Vital Signs Temperature 98.2 F 11/12/17 14:04 Pulse Rate 99 11/12/17 14:04 Respiratory Rate 18 11/12/17 14:04 Blood Pressure 173/91 11/12/17 14:04 O2 Sat by Pulse Oximetry 99 11/12/17 14:04 Temperature 98.2 F 11/12/17 14:04 Pulse Rate 93 11/12/17 14:19 Respiratory Rate 18 11/12/17 14:19 Blood Pressure 173/91 11/12/17 14:19 O2 Sat by Pulse Oximetry 97 11/12/17 14:19 Oxygen Delivery Oxygen Delivery Nasal Cannula Medical Decision Making - Lab Data Result diagrams: 11/12/17 14:13 11/12/17 14:13 Lab Results 11/12/17 11/12/17 11/12/17 Range/Units 14:13 14:13 14:13 WBC 3.5 L (4.3-11.1) K/mcL RBC 3.82 (3.82-4.97) M/mcL Hgb 11.4 L (11.5-15.4) g/dL Hct 34.3 L (35.3-44.9) % MCV 89.8 (83.0-100.0) fL MCH 29.8 (28.0-33.3) pg MCHC 33.2 (31.6-35.5) g/dL RDW 15.9 H (11.5-14.5) % Plt Count 66 L (140-400) K/mcL MPV 9.5 (9.4-12.4) fL Immature Gran % 0.3 (0-4) % Seg Neutrophils % 79.5 % Lymphocytes % 11.1 % Monocytes % 7.4 % Eosinophils % 1.1 % Basophils % 0.6 % Neutrophils # 2.8 (1.6-8.9) K/mcL Lymphocytes # 0.4 L (0.6-4.6) K/mcL Monocytes # 0.3 (0.0-1.3) K/mcL Eosinophils # 0.0 (0.0-0.6) K/mcL Basophils # 0.0 (0.0-0.2) K/mcL Immature Plt Fraction 1.9 (1.1-6.1) % Sodium 137 (136-145) mEq/L Potassium 3.4 L (3.5-5.1) mEq/L Chloride 101 (98-107) mEq/L Carbon Dioxide 27 (23-29) mEq/L BUN 12 (8-23) mg/dL Creatinine 0.78 (0.60-1.20) mg/dL Est GFR ( Amer) > 60 (> 60) Est GFR (Non-Af Amer) > 60 (> 60) BUN/Creatinine Ratio 15 (6-26) Glucose 169 H (70-105) mg/dL Calculated Osmolality 288 (280-300) Lactic Acid (0.5-2.2) mmol/L Calcium 8.9 (8.6-10.3) mg/dL Troponin I 0.03 (< 0.04) ng/mL B-Natriuretic Peptide 302 H (Less than 100) pg/mL Urine Color (Yellow) Urine Clarity (Clear) Urine pH (5.0-8.0) pH Units Ur Specific [place] (1.010-1.025) Urine Protein (Neg-Trace) mg/dL Urine Glucose (UA) (Normal) mg/dL Urine Ketones (Negative) mg/dL Urine Blood (Negative) Urine Nitrite (Negative) Urine Bilirubin (Negative) Urine Urobilinogen (Normal) mg/dL Ur Leukocyte Esterase (Negative) Urine Microscopic RBC (0-3) per hpf Urine Microscopic WBC (0-3) per hpf Ur Squamous Epith Cells (None-Few) per lpf Urine Bacteria (None-Few) per hpf Hyaline Casts (None-Few) per lpf 11/12/17 11/12/17 11/12/17 Range/Units 14:55 16:10 17:18 WBC (4.3-11.1) K/mcL RBC (3.82-4.97) M/mcL Hgb (11.5-15.4) g/dL Hct (35.3-44.9) % MCV (83.0-100.0) fL MCH (28.0-33.3) pg MCHC (31.6-35.5) g/dL RDW (11.5-14.5) % Plt Count (140-400) K/mcL MPV (9.4-12.4) fL Immature Gran % (0-4) % Seg Neutrophils % % Lymphocytes % % Monocytes % % Eosinophils % % Basophils % % Neutrophils # (1.6-8.9) K/mcL Lymphocytes # (0.6-4.6) K/mcL Monocytes # (0.0-1.3) K/mcL Eosinophils # (0.0-0.6) K/mcL Basophils # (0.0-0.2) K/mcL Immature Plt Fraction (1.1-6.1) % Sodium (136-145) mEq/L Potassium (3.5-5.1) mEq/L Chloride (98-107) mEq/L Carbon Dioxide (23-29) mEq/L BUN (8-23) mg/dL Creatinine (0.60-1.20) mg/dL Est GFR ( Amer) (> 60) Est GFR (Non-Af Amer) (> 60) BUN/Creatinine Ratio (6-26) Glucose (70-105) mg/dL Calculated Osmolality (280-300) Lactic Acid 2.4 H 2.8 H 2.7 H (0.5-2.2) mmol/L Calcium (8.6-10.3) mg/dL Troponin I (< 0.04) ng/mL B-Natriuretic Peptide (Less than 100) pg/mL Urine Color (Yellow) Urine Clarity (Clear) Urine pH (5.0-8.0) pH Units Ur Specific [place] (1.010-1.025) Urine Protein (Neg-Trace) mg/dL Urine Glucose (UA) (Normal) mg/dL Urine Ketones (Negative) mg/dL Urine Blood (Negative) Urine Nitrite (Negative) Urine Bilirubin (Negative) Urine Urobilinogen (Normal) mg/dL Ur Leukocyte Esterase (Negative) Urine Microscopic RBC (0-3) per hpf Urine Microscopic WBC (0-3) per hpf Ur Squamous Epith Cells (None-Few) per lpf Urine Bacteria (None-Few) per hpf Hyaline Casts (None-Few) per lpf 11/12/17 Range/Units 18:18 WBC (4.3-11.1) K/mcL RBC (3.82-4.97) M/mcL Hgb (11.5-15.4) g/dL Hct (35.3-44.9) % MCV (83.0-100.0) fL MCH (28.0-33.3) pg MCHC (31.6-35.5) g/dL RDW (11.5-14.5) % Plt Count (140-400) K/mcL MPV (9.4-12.4) fL Immature Gran % (0-4) % Seg Neutrophils % % Lymphocytes % % Monocytes % % Eosinophils % % Basophils % % Neutrophils # (1.6-8.9) K/mcL Lymphocytes # (0.6-4.6) K/mcL Monocytes # (0.0-1.3) K/mcL Eosinophils # (0.0-0.6) K/mcL Basophils # (0.0-0.2) K/mcL Immature Plt Fraction (1.1-6.1) % Sodium (136-145) mEq/L Potassium (3.5-5.1) mEq/L Chloride (98-107) mEq/L Carbon Dioxide (23-29) mEq/L BUN (8-23) mg/dL Creatinine (0.60-1.20) mg/dL Est GFR ( Amer) (> 60) Est GFR (Non-Af Amer) (> 60) BUN/Creatinine Ratio (6-26) Glucose (70-105) mg/dL Calculated Osmolality (280-300) Lactic Acid (0.5-2.2) mmol/L Calcium (8.6-10.3) mg/dL Troponin I (< 0.04) ng/mL B-Natriuretic Peptide (Less than 100) pg/mL Urine Color Dark Yellow (Yellow) Urine Clarity Clear (Clear) Urine pH 6.5 (5.0-8.0) pH Units Ur Specific [place] 1.016 (1.010-1.025) Urine Protein 30 H (Neg-Trace) mg/dL Urine Glucose (UA) Normal (Normal) mg/dL Urine Ketones Negative (Negative) mg/dL Urine Blood Negative (Negative) Urine Nitrite Negative (Negative) Urine Bilirubin Negative (Negative) Urine Urobilinogen Normal (Normal) mg/dL Ur Leukocyte Esterase Small H (Negative) Urine Microscopic RBC 5-15 H (0-3) per hpf Urine Microscopic WBC 5-15 H (0-3) per hpf Ur Squamous Epith Cells Many H (None-Few) per lpf Urine Bacteria None Seen (None-Few) per hpf Hyaline Casts None Seen (None-Few) per lpf Attestation Statement - Attestation Attestation: I, Olvin Yanez DO, examined this patient [id number] and my medical decision-making was reviewed with Dr. Enrrique Meza , Resident Physician. I agree with the documented findings, disposition and treatment plan as described except to the extent set forth below. Please see my progress notes for details. 77-year-old female presents emergency room in the care of the family and transported by EMS secondary to hypoxia. Patient was found at home to have a pulse ox in the 30% score the family. They called EMS and the patient had a pulse ox of 75. Patient is provided breathing treatments and steroids secondary to the increased work of breathing as well as wheezing. Patient was also provided with oxygen by nasal cannula. Her pulse ox came up to the 90s. Patient is alert and following commands on arrival. She denies any chest pain fevers chills nausea vomiting or diarrhea headache or vision changes prior to coming in. Patient is have baseline dementia. She was home with family who agreed with her everyday ask of daily living. Vital signs are stable on presentation here pulse ox was diminished patient was placed on nonrebreather and breathing treatments were ordered along with steroids. Patient is mentating appropriately no visible signs of trauma injury to the head pupils are round reactive extracted muscles are intact oropharynx is patent trachea is midline. Lungs are diminished on the right side with intermittent wheezing and left-sided. Patient has S1 the bilateral lower extremities but no specific signs of pitting edema. Patient will have symptomatically control started this time disposition will be determined. Patient will most likely require admission for symptom control reevaluation for what appears to be other congestive heart failure versus pulmonary related etiology causing the hypoxia. Patient is otherwise acting appropriately per the family. See detailed recommendation physical exam, medical intervention, medical decision-making and disposition the resident physician's note. No critical care applied to the patient's treatment course at this time 1600 Patient does show pulmonary congestion on chest x-ray. Troponin is otherwise unremarkable. BNP is elevated greater than her typical. Patient was provided with a single dose of Lasix here. She does have a slightly elevated lactic acid of 2.4. Repeat lactic acid will be given. Fluids have been titrated as needed but otherwise the patient is been hemodynamically stable. No other acute etiology including infectious etiology noted on chest x-ray or examination. Her white blood cell count is normal. She does have chronic thrombocytopenia and anemia. Patient will be admitted. Patient had an elevated lactic acid at 2.4. Etiology is unknown considering the patient has no acute infectious etiology. Repeat lactic will be ordered fluids will be held at this time considering the pulmonary congestion. Urinalysis is still pending. Patient does not have any visible signs of white count. Abdomen exam was repeated at the bedside she has no acute complaints of tenderness or discomfort on palpation anteriorly and posteriorly. We will continue to monitor here until the remainder of laboratory workup is resulted. ABG was added on after curbside conversation with the hospitalist. procalcitonin was also added. Disposition will be admission once the full workup and treatment course are established 1845 Urinalysis is unremarkable. Repeat lactic acids have plateaued at 2.7. Etiology to this is unknown at this point. Patient has no significant abdominal pain she has no other acute pathology noted on exam. She will be monitored here with fluid resuscitation starting at this time with no specific infectious etiology noted. Antibiotics were given secondary to lactic acid not because of the patient having a focal infectious source. Admission process will be completed. Patient does not meet criteria for SIRS or sepsis. Definitive management to be completed in the hospital setting for what appears to be hypoxic-induced respiratory distress secondary to congestive heart failure with elevated lactic acidosis secondary to the hypoxia. ABG is unremarkable at this time. No acute signs of acidemia. Admission process will be completed for definitive management. Patient is stable mentating and easily arousable during repeat evaluation in conversation with the son.
[2017-11-12] MEDS ORDERED: 0.9 % Sodium Chloride 1,000 ML IVC SCH (16:45)
[2017-11-12 18:30] LABS: Bilirubin,Urine Negative (Negative); Blood,Urine Negative (Negative); Clarity,Urine Clear (Clear); Color,Urine Dark Yellow (Yellow); Glucose,Urine (UA) Normal (Normal); Ketones,Urine Negative (Negative); Leukocyte Esterase,Urine Small (Negative); Nitrite,Urine Negative (Negative); PH,Urine 6.5 pH Units (5.0-8.0); Protein,Urine 30 mg/dL (Neg-Trace); Specific Gravity,Urine 1.016 (1.010-1.025); Urobilinogen,Urine Normal (Normal)
[2017-11-12 18:33] LABS: Bacteria,Urine None Seen per hpf (None-Few); Hyaline Casts,Urine None Seen per lpf (None-Few); Squamous Epithelial Cell,Urine Many per lpf (None-Few)
[2017-11-12] MEDS ORDERED: *HR* OxyCODONE/APAP 10/325 TABLET PO PRN (18:38)
[2017-11-12] MEDS ORDERED: *HR* Dextrose 50 % in Water (Syg) 50 ML SYRINGE IVP PRN (18:40)
[2017-11-12] MEDS ORDERED: D5% in Water 1,000 ML IVC PRN (18:40)
[2017-11-12] MEDS ORDERED: Dextrose Gel 15 GM/37.5 ML TUBE PO PRN ×2 (18:40)
[2017-11-12 18:41] LABS: ABG Base Excess 3 mEq/L (-2 to 3); ABG HCO3 28 mEq/L (21-27); ABG Oxygen Saturation 94 % (95-98); ABG PCO2 46 mmHg (35-45); ABG PO2 72 mmHg (85-104); ABG TCO2 30 mEq/L (20-26)
[2017-11-12] MEDS ORDERED: Naloxone 0.4 MG/ML INJ IVP PRN (18:41)
--- NOTE | 2017-11-12 19:05 | Internal Med History&Physical ---
<LouannFlex Smith - Last Filed: 11/12/17 20:47> Date of Encounter: 11/12/17 Time of Encounter: 17:30 Internal Medicine - H&P: HPI Chief complaint: SOB/Dyspnea Admitted From: Emergency Dept Plans for Post Hospital Care: Home History of present illness: Ms. Nieto is a 77 year old female w/PMH of cirrhosis, osteoporosis, dementia, diabetes, GERD, HTN, HLD, hx of bleeding ulcers, and depression presents from the ED w/CC of SOB and dyspnea for the past year that has become progressively worse over the past week. Pts. son reports intermittent pedal edema. Also states that pt. is having diarrhea and has hx of bleeding ulcers and was d/t have EGD done but it has not been scheduled. Hgb 11.4 on admission. Pts. son denies unusual bleeding. Pt. reports that she has not been eating very much lately d/t loss of appetite. Pts. son reports pt. has had fever, chills, SOB, dyspnea, and weakness in bilateral LEs but denies nausea, vomiting, changes in vision, headache, chest pain, abdominal pain, constipation, numbness, tingling, dizziness, lightheadedness, pre-syncope, or syncope. Past Med Surg Social Fam HX - Past Medical History Source: patient, old records reviewed, obtained from family Medical history: cirrhosis, dementia, diabetes, GERD, hyperlipidemia, hypertension, other (Hx of bleeding ulcers) Additional medical history: stomach ulcers, hiatel hernia, metal plate in head, UTI's Psychiatric history: depression - Past Surgical History Surgical History: hysterectomy Additional surgical history: family states "sx for bleeding ulcer" - Social History Smoking Status: Never smoker Smokeless Tobacco Status: No Alcohol use: none Drug use: none Current living situation: Home, With Family Activity Level: Uses cane/walker Recent Out of Country Travel Within the Last 8 Weeks: No Exposure or Possible Exposure to Illness During Travel: No - Family History Sister Adopted: No Race: Family Member Ethnicity: Non- Living Status: Age at : 62 Cause of : Brain aneurysm Hx Family Cardiac Disorders: Yes (Brain aneurysm) Brother Race: Family Member Ethnicity: Non- Living Status: Age at : 63 Cause of : HF Hx Family Cardiac Disorders: Yes (HF, CAD) Mother Race: Family Member Ethnicity: Non- Living Status: Age at : 93 Cause of : HF Hx Family Cardiac Disorders: Yes (HF, CAD, HTN) Father Race: Family Member Ethnicity: Non- Living Status: Age at : 40 Cause of : Bleeding ulcers Hx Family GI Disorders: Yes (Bleeding ulcers) Internal Medicine - H&P: Meds Amitriptyline [Elavil] 40 mg PO HS 07/04/16 [History] Calcium Carbonate/Vitamin D3 [Oyster Shell Calcium-Vit D Tab] 1 tab PO BID 07/04 [History] Donepezil HCl [Aricept] 5 mg PO DAILY 07/04/16 [History] Escitalopram [Lexapro] 20 mg PO DAILY 07/04/16 [History] Esomeprazole Magnesium [Nexium] 40 mg PO DAILY 07/04/16 [History] Ferrous Sulfate [Iron] 325 mg PO DAILY 07/04/16 [History] LORazepam [Ativan] 1 mg PO QID 07/04/16 [History] Lisinopril [Zestril] 20 mg PO DAILY 07/04/16 [History] Metoprolol [Lopressor] 25 mg PO BID 07/04/16 [History] Oxycodone HCl/Acetaminophen [Percocet 10-325 mg Tablet] 1 tab PO Q8H PRN [History] Potassium Chloride [K-Tab ER] 10 meq PO BID 07/04/16 [History] Risedronate Sodium [Actonel] 35 mg PO QWEEK 07/04/16 [History] Simvastatin [Zocor] 20 mg PO HS 07/04/16 [History] Sucralfate [Carafate] 1 gm PO QIDAC 07/04/16 [History] glipiZIDE [Glucotrol] 5 mg PO BIDWM 07/04/16 [History] metFORMIN [Glucophage] 500 mg PO BIDWM 07/04/16 [History] 3 Allergy/AdvReac Type Severity Reaction Status Date / Time haloperidol Allergy Hallucinati Verified 09/09/17 13:46 ng All Systems PM: A 10-system review of systems was performed and is negative for pertinent findings except as documented above in the HPI. - Constitutional Constitutional: as per HPI, anorexia, chills, fever(s), weakness (Bilateral LEs) , no night sweats - EENT Eyes: no change in vision, no discharge, no pain, no photophobia Ears: no ear discharge, no ear pain, no tinnitus Nose, mouth and throat: no dysphagia, no nasal discharge, no neck pain, no sore throat - Breasts Breasts: as per HPI - Cardiovascular Cardiovascular ROS IM: as per HPI, dyspnea, dyspnea on exertion, edema, orthopnea, no chest pain, no diaphoresis, no lightheadedness, no palpitations, no syncope - Respiratory Respiratory: as per HPI, dyspnea, dyspnea on exertion, no cough, no wheezing, no excessive phlegm production - Gastrointestinal Gastrointestinal: as per HPI, diarrhea, no abdominal pain, no hematemesis, no hematochezia, no melena, no nausea, no vomiting - Genitourinary Genitourinary: no change in urinary stream, no dysuria, no flank pain, no hematuria Menstruation: as per HPI, post hysterectomy - Musculoskeletal Musculoskeletal ROS IM: no numbness, no tingling - Integumentary Integumentary IM: no rash, no unusual bruising - Neurological Neurological ROS: as per HPI, weakness (Bilateral LEs), no confusion, no convulsions, no focal weakness, no numbness, no tingling, no tremor(s) - Psychiatric Psychiatric: as per HPI, depression - Endocrine Endocrine IM: as per HPI - Hematologic/Lymphatic Hematologic/Lymphatic: no easy bruising - Allergic/Immunologic Allergic/Immunologic: as per HPI - Constitutional Vitals: Temp Pulse Resp BP Pulse Ox 98.2 F 93 18 173/91 97 11/12/17 14:04 11/12/17 14:19 11/12/17 14:19 11/12/17 14:19 11/12/17 14:19 General appearance: Present: cooperative, A&O X 2, mild distress (SOB), pleasant , obese, answers questions appropriately - Head Head exam: Present: atraumatic, normocephalic - Eye Eye exam: Present: PERRL, conjuntiva pink, sclera anicteric Pupils: Present: PERRL - ENT ENT exam: Present: normal exam - Neck Neck exam general surgery: Present: normal inspection, supple, trachea midline. Absent: lymphadenopathy - Respiratory Respiratory exam: Present: CTAB. Absent: accessory muscle use, rales, rhonchi, wheezes - Cardiovascular Cardiovascular exam: Present: RRR, +S1, +S2. Absent: diastolic murmur, gallop, rubs, systolic murmur - GI/Abdominal GI/Abdominal exam: Present: normal bowel sounds, soft, no peritoneal signs. Absent: distended, tenderness - Rectal Rectal exam: Present: deferred - Additional comments: exam deferred. - Extremities Exam Extremities exam: Present: pedal edema, warm, radial pulses palpable and symmetrical. Absent: calf tenderness, cyanotic - Back Exam Back exam: Present: normal inspection - Neurological Exam Neurological exam: Present: alert, CN II-XII intact, no focal deficits. Absent : pronater drift, facial droop, speech deficit - Psychiatric Psychiatric exam: Present: normal affect, normal mood - Skin Skin exam: Present: dry, intact Internal Med - H&P Results - Labs CBC & Chem 7: 11/12/17 14:13 11/12/17 14:13 Labs: Short CBC 11/12/17 Range/Units 14:13 WBC 3.5 L (4.3-11.1) K/mcL Hgb 11.4 L (11.5-15.4) g/dL Hct 34.3 L (35.3-44.9) % Plt Count 66 L (140-400) K/mcL Neutrophils # 2.8 (1.6-8.9) K/mcL BMP 11/12/17 14:13 Sodium 137 Potassium 3.4 L Chloride 101 Carbon Dioxide 27 BUN 12 Creatinine 0.78 Glucose 169 H Calcium 8.9 Cardiac Enzymes 11/12/17 Range/Units 14:13 Troponin I 0.03 (< 0.04) ng/mL Urine 11/12/17 Range/Units 18:18 Urine Color Dark Yellow (Yellow) Urine Clarity Clear (Clear) Urine pH 6.5 (5.0-8.0) pH Units Ur Specific [place] 1.016 (1.010-1.025) Urine Protein 30 H (Neg-Trace) mg/dL Urine Glucose (UA) Normal (Normal) mg/dL - ABG Interpretation ABG results: 11/12/17 16:55 ABG pH 7.40 ABG pCO2 46 H ABG pO2 72 L ABG HCO3 28 H ABG Total CO2 30 H ABG O2 Saturation 94 L ABG Base Excess 3 - EKG Data EKG shows normal: sinus rhythm - EKG Data Prior EKG available for review: yes EKG comments: 11/12/17 19:16 EKG dated 07/04/16 shows sinus tachycardia with occasional supraventricular premature complexes, marked left axis deviation, and LBBB. EKG dated 07/05/16 shows sinus rhythm with prolonged QT interval baseline artifact. EKG dated 11/12/17 shows sinus rhythm with marked left axis deviation and LBBB. - Impressions ITS Impressions Chest X-Ray 11/12/17 14:13 IMPRESSION: Findings most compatible with mild CHF. Recommend clinical exclusion of pneumonia D/ / Quan García MD / Quan García MD Interpreting Provider: Quan García MD Head CT 11/12/17 14:43 IMPRESSION: No acute intracranial abnormality. D/ / Jerald Stephen MD / Jerald Stephen MD Interpreting Provider: Jerald Stephen MD - Diagnostic Studies Chest x-ray Additional comments: Impressions Chest X-Ray 11/12/17 14:13 IMPRESSION: Findings most compatible with mild CHF. Recommend clinical exclusion of pneumonia D/ / Quan García MD / Quan García MD Interpreting Provider: Quan García MD CT scan - head Additional comments: Impressions Head CT 11/12/17 14:43 IMPRESSION: No acute intracranial abnormality. D/ / Jerald Stephen MD / Jerald Stephen MD Interpreting Provider: Jerald Stephen MD - Assessment and plan (1) Acute exacerbation of CHF (congestive heart failure) Current Visit: Yes Status: Acute Assessment and plan: Acute exacerbation of CHF. BNP 302 on admission. Pts. son reports intermittent pedal edema. Pt. reports SOB/dyspnea which has worsened over the past week. Echocardiogram of 07/05/16 shows LVEF of 60%, normal LV chamber size and function, mild concentric left ventricular hypertrophy, mild left ventricular diastolic dysfunction, atypical septal motion consistent with bundle branch block, normal right ventricular structure and function, moderate to severely dilated left atrium, moderate mitral regurgitation, mild tricuspid regurgitation , mild to moderate multiple pulmonary hypertension, and estimated RVSP is 46 mmHg. Echocardiogram ordered. 1.5L daily fluid restriction. D/t currently meeting sepsis criteria, will use IV fluids judiciously and monitor lactic acids. Pt. discussed w/Dr. Prajapati who agrees w/plan of care. Pt is high risk for further morbidity, cardiac, and/or respiratory distress d/t current exacerbation of CHF, increased risk for falls and injury, current sepsis criteria and infection of unknown source, SOB/dyspnea requiring IVP lasix, hx, and risk factors. Inpatient. Qualifiers: Heart failure type: diastolic Qualified Code(s): I50.33 - Acute on chronic diastolic (congestive) heart failure (2) Hypokalemia Current Visit: Yes Status: Acute Assessment and plan: Acute hypokalemia w/potassium level of 3.4 on admission. 40 mEq PO potassium once. Potassium level @ 00:00. (3) Dementia Current Visit: Yes Status: Chronic Assessment and plan: Hx of chronic dementia. Will hold pts. Aricept for now d/t contraindication w/ Azithromycin from QT prolongation. Will continue pts. Ativan. Falls/safety precautions. Sitter ordered. Qualifiers: Dementia type: unspecified type Dementia behavioral disturbance: without behavioral disturbance Qualified Code(s): F03.90 - Unspecified dementia without behavioral disturbance (4) GERD (gastroesophageal reflux disease) Current Visit: Yes Status: Chronic Assessment and plan: Hx of chronic GERD. IVP Protonix 40 mg daily. Qualifiers: Esophagitis presence: esophagitis presence not specified Qualified Code(s) : K21.9 - Gastro-esophageal reflux disease without esophagitis (5) HTN (hypertension) Current Visit: Yes Status: Chronic Assessment and plan: Hx of chronic HTN. Monitor pt. and VS. IVP Hydralazine 10 mg Q6HR PRN w/ parameters ordered. Qualifiers: Hypertension type: essential hypertension Qualified Code(s): I10 - Essential (primary) hypertension (6) HLD (hyperlipidemia) Current Visit: Yes Status: Chronic Assessment and plan: Hx of chronic HLD. Lipid panel in a.m. labs. Will add Lipitor if warranted by lipid panel results. Qualifiers: Hyperlipidemia type: pure hypercholesterolemia Qualified Code(s): E78.00 - Pure hypercholesterolemia, unspecified; E78.0 - Pure hypercholesterolemia (7) History of bleeding ulcers Current Visit: Yes Status: Chronic Assessment and plan: Hx of bleeding ulcers. Hgb 11.4 and Hct 34.3 on admission. Pt. and son deny unusual bleeding. Fecal hemoccult ordered. Monitor H/H. Bilateral SCDs for DVT prophylaxis. (8) Depression Current Visit: Yes Status: Chronic Assessment and plan: Hx of chronic depression. Continue pts. Elavil and Ativan. Qualifiers: Depression Type: unspecified Qualified Code(s): F32.9 - Major depressive disorder, single episode, unspecified (9) Diabetes mellitus type 2 in obese Current Visit: Yes Status: Chronic Assessment and plan: Hx of diabetes controlled w/oral medications. Hold oral medications and administer low-dose correction insulin sliding scale with hypoglycemic protocol. BG checks before meals at bedtime. A1c in a.m. labs. (10) DVT prophylaxis Current Visit: Yes Status: Acute Assessment and plan: Bilateral SCDs on LEs for DVT prophylaxis d/t report of hx of bleeding ulcers and current Hgb of 11.4. (11) Sepsis Current Visit: Yes Status: Acute Assessment and plan: Acute sepsis criteria w/WBC of 3.5, HR of 99, lactic acid of 3.6. Infection of unknown source. Will have to use IV fluids judiciously d/t pts. current CHF exacerbation. Timed lactic acids ordered. Pt. placed on IVPB Azithromycin 500 mg daily and Ceftriaxone 2,000 mg daily for infection coverage. Pt. afebrile and is asymptomatic on exam. Blood cultures x2. Respiratory infection panel. U/ A w/reflex culture and micro ordered. Will monitor pt. and f/u labs closely. Qualifiers: Sepsis type: sepsis due to unspecified organism Qualified Code(s): A41.9 - Sepsis, unspecified organism - Time Spent With Patient Total time spent is greater than 50% in coordination of care (as documented) at patient's floor/unit and/or counseling patient: Greater than 35 minutes <Lenny Prajapati - Last Filed: 11/13/17 12:16> Date of Encounter: 11/13/17 Internal Medicine - H&P: HPI History of present illness: Ms. Nieto is a 77 year old female All Systems PM: A 10-system review of systems was performed and is negative for pertinent findings except as documented above in the HPI. - Constitutional Vitals: Temp Pulse Resp BP Pulse Ox 98.9 F 83 16 167/89 93 11/13/17 11:02 11/13/17 11:02 11/13/17 11:02 11/13/17 11:02 11/13/17 11:02 Internal Med - H&P Results - Labs CBC & Chem 7: 11/13/17 00:49 11/13/17 00:49 Labs: Short CBC 11/13/17 Range/Units 00:49 WBC 1.4 L D (4.3-11.1) K/mcL Hgb 10.4 L (11.5-15.4) g/dL Hct 31.0 L (35.3-44.9) % Plt Count 42 L (140-400) K/mcL Neutrophils # 1.2 L (1.6-8.9) K/mcL BMP 11/13/17 11/13/17 00:49 00:49 Sodium 132 L Potassium 3.4 L 3.4 L Chloride 99 Carbon Dioxide 23 BUN 13 Creatinine 0.74 Glucose 212 H Calcium 8.4 L Liver Function 11/13/17 Range/Units 00:49 Total Bilirubin 1.0 (0.3-1.0) mg/dL AST 32 (13-39) Units/L ALT 15 (7-52) Units/L Alkaline Phosphatase 75 (34-104) Units/L Albumin 2.8 L (3.5-5.7) g/dL Urine 11/13/17 Range/Units 09:50 Urine Color Yellow (Yellow) Urine Clarity Clear (Clear) Urine pH 6.5 (5.0-8.0) pH Units Ur Specific [place] 1.008 L (1.010-1.025) Urine Protein Negative (Neg-Trace) mg/dL Urine Glucose (UA) Normal (Normal) mg/dL - Attending Attestation Seen and assessed. Continue management for CHF. Agree with plan per INFRASTRUCTURE ARCHITECT - Assessment and plan (1) Diabetes mellitus type 2 in obese Current Visit: Yes Status: Chronic (2) DVT prophylaxis Current Visit: Yes Status: Acute (3) Hypokalemia Current Visit: Yes Status: Acute (4) Acute exacerbation of CHF (congestive heart failure) Current Visit: Yes Status: Acute Qualifiers: Heart failure type: diastolic Qualified Code(s): I50.33 - Acute on chronic diastolic (congestive) heart failure (5) Dementia Current Visit: Yes Status: Chronic Qualifiers: Dementia type: unspecified type Dementia behavioral disturbance: without behavioral disturbance Qualified Code(s): F03.90 - Unspecified dementia without behavioral disturbance (6) GERD (gastroesophageal reflux disease) Current Visit: Yes Status: Chronic Qualifiers: Esophagitis presence: esophagitis presence not specified Qualified Code(s) : K21.9 - Gastro-esophageal reflux disease without esophagitis (7) HTN (hypertension) Current Visit: Yes Status: Chronic Qualifiers: Hypertension type: essential hypertension Qualified Code(s): I10 - Essential (primary) hypertension (8) HLD (hyperlipidemia) Current Visit: Yes Status: Chronic Qualifiers: Hyperlipidemia type: pure hypercholesterolemia Qualified Code(s): E78.00 - Pure hypercholesterolemia, unspecified; E78.0 - Pure hypercholesterolemia (9) History of bleeding ulcers Current Visit: Yes Status: Chronic (10) Depression Current Visit: Yes Status: Chronic Qualifiers: Depression Type: unspecified Qualified Code(s): F32.9 - Major depressive disorder, single episode, unspecified (11) Sepsis Current Visit: Yes Status: Acute Qualifiers: Sepsis type: sepsis due to unspecified organism Qualified Code(s): A41.9 - Sepsis, unspecified organism - Time Spent With Patient Total time spent is greater than 50% in coordination of care (as documented) at patient's floor/unit and/or counseling patient:
[2017-11-12] MEDS ORDERED: Furosemide 40 MG/4 ML VIAL IVP ONE (19:30)
[2017-11-12] MEDS ORDERED: Furosemide 40 MG/4 ML VIAL ONE (19:32)
[2017-11-12] MEDS: Furosemide 40 MG/4 ML VIAL IVP ONE (19:39)
[2017-11-12] MEDS: Azithromycin 500 MG in D5% in Water 250 ML IVPB SCH (19:40)
[2017-11-12] MEDS ORDERED: Ipratropium/Albuterol Neb 3 ML IH PRN (20:06)
[2017-11-12] MEDS ORDERED: Furosemide 20 MG/2 ML VIAL IVP SCH (21:00)
[2017-11-12] MEDS: cefTRIAXone 2,000 MG in Water for inj. (sterile) 20 ML 20 ML IVP SCH (22:35)
[2017-11-12] MEDS: *HR* LORazepam 1 MG TABLET PO SCH (22:37)
[2017-11-12] MEDS: Pantoprazole 40 MG VIAL IVP SCH (22:37)
[2017-11-12] MEDS: Insulin LISPRO 300 UNITS/3 ML VIAL SQ SCH (22:37)
[2017-11-13 01:04] LABS: Hemoglobin 10.4 g/dL (11.5-15.4); Immature Granulocytes % 0.7 % (0-4); Lymphocytes # 0.2 K/mcL (0.6-4.6); Lymphocytes % 12.3 %; Mean Corpuscular HGB Conc 33.5 g/dL (31.6-35.5); Mean Corpuscular Hemoglobin 30.1 pg (28.0-33.3); Mean Corpuscular Volume 89.9 fL (83.0-100.0); Mean Platelet Volume 9.9 fL (9.4-12.4); Monocytes % 2.2 %; Neutrophils # 1.2 K/mcL (1.6-8.9); Red Blood Count 3.45 M/mcL (3.82-4.97); Red Cell Distribution Width 15.8 % (11.5-14.5); Segmented Neutrophils % 84.8 %
[2017-11-13 01:16] LABS: Platelet Count 42 K/mcL (140-400)
[2017-11-13 01:21] LABS: Alanine Aminotransferase 15 Units/L (7-52); Albumin 2.8 g/dL (3.5-5.7); Albumin/Globulin Ratio 0.9 (1.1-2.2); Alkaline Phosphatase 75 Units/L (34-104); Aspartate Amino Transferase 32 Units/L (13-39); BUN/Creatinine Ratio 18 (6-26); Blood Urea Nitrogen 13 mg/dL (8-23); Calcium 8.4 mg/dL (8.6-10.3); Carbon Dioxide 23 mEq/L (23-29); Chloride 99 mEq/L (98-107); Cholesterol 100 mg/dL (< 200); Glucose 212 mg/dL (70-105); HDL Cholesterol 25 mg/dL (40-59); LDL Cholesterol,Calculated 57 mg/dL (0-99); Magnesium 1.4 mg/dL (1.6-2.6); Osmolality,Calculated 280 (280-300); Potassium 3.4 mEq/L (3.5-5.1); Sodium 132 mEq/L (136-145); Total Protein 5.8 g/dL (6.4-8.9); Triglycerides 91 mg/dL (< 150); eGFR For African Americans > 60 (> 60); eGFR For Non-African Americans > 60 (> 60)
[2017-11-13 02:39] LABS: Platelet Estimate Decreased (Normal)
[2017-11-13] MEDS: Pantoprazole 40 MG VIAL IVP SCH (07:49)
[2017-11-13] MEDS: *HR* LORazepam 1 MG TABLET PO SCH ×4 (07:49→21:28)
[2017-11-13] MEDS: Insulin LISPRO 300 UNITS/3 ML VIAL SQ SCH ×4 (08:08→20:47)
[2017-11-13 10:06] LABS: Bilirubin,Urine Negative (Negative); Blood,Urine Negative (Negative); Clarity,Urine Clear (Clear); Color,Urine Yellow (Yellow); Glucose,Urine (UA) Normal (Normal); Ketones,Urine Negative (Negative); Leukocyte Esterase,Urine Trace (Negative); Nitrite,Urine Negative (Negative); PH,Urine 6.5 pH Units (5.0-8.0); Protein,Urine Negative (Neg-Trace); Specific Gravity,Urine 1.008 (1.010-1.025); Urobilinogen,Urine Normal (Normal)
[2017-11-13 10:08] LABS: Bacteria,Urine None Seen per hpf (None-Few); Hyaline Casts,Urine None Seen per lpf (None-Few); RBC,Urine 0-3 per hpf (0-3); Squamous Epithelial Cell,Urine Many per lpf (None-Few)
[2017-11-13] MEDS: cefTRIAXone 2,000 MG in Water for inj. (sterile) 20 ML 20 ML IVP SCH (17:45)
[2017-11-13] MEDS: Azithromycin 500 MG in D5% in Water 250 ML IVPB SCH (17:45)
--- NOTE | 2017-11-13 19:01 | Internal Med Progress Note ---
Date of Encounter: 11/13/17 Time of Encounter: 11:00 - Assessment and plan (1) Diabetes mellitus type 2 in obese Current Visit: Yes Status: Chronic Assessment and plan: We will hold oral medications for now and start sliding scale insulin and Accu- Cheks before meals and at bedtime A1c pending (2) DVT prophylaxis Current Visit: Yes Status: Acute Assessment and plan: Bilateral SCDs on LEs for DVT prophylaxis d/t report of hx of bleeding ulcers and current Hgb of 10.4 (3) Hypokalemia Current Visit: Yes Status: Acute Assessment and plan: Testing continues 3.4 we will give K rider and recheck (4) Acute exacerbation of CHF (congestive heart failure) Current Visit: Yes Status: Acute Assessment and plan: Continue with Lasix 20 mg twice a day IV Monitor intake output daily weights Fluid restriction 1500 mL's Low-sodium diet Qualifiers: Heart failure type: diastolic Qualified Code(s): I50.33 - Acute on chronic diastolic (congestive) heart failure (5) Dementia Current Visit: Yes Status: Chronic Assessment and plan: History of chronic dementia. We will hold Aricept for now azithromycin due to QT prolongation. Continue with sitter and falls precautions Qualifiers: Dementia type: unspecified type Dementia behavioral disturbance: without behavioral disturbance Qualified Code(s): F03.90 - Unspecified dementia without behavioral disturbance (6) GERD (gastroesophageal reflux disease) Current Visit: Yes Status: Chronic Assessment and plan: Hx of chronic GERD. IVP Protonix 40 mg daily. Qualifiers: Esophagitis presence: esophagitis presence not specified Qualified Code(s) : K21.9 - Gastro-esophageal reflux disease without esophagitis (7) HTN (hypertension) Current Visit: Yes Status: Chronic Assessment and plan: History of hypertension continue with home medications hydralazine 10 mg IV as needed Qualifiers: Hypertension type: essential hypertension Qualified Code(s): I10 - Essential (primary) hypertension (8) HLD (hyperlipidemia) Current Visit: Yes Status: Chronic Assessment and plan: Lipid panel looks good history of chronic hyperlipidemia Qualifiers: Hyperlipidemia type: pure hypercholesterolemia Qualified Code(s): E78.00 - Pure hypercholesterolemia, unspecified; E78.0 - Pure hypercholesterolemia (9) History of bleeding ulcers Current Visit: Yes Status: Chronic Assessment and plan: Hx of bleeding ulcers. Hgb 11.4 and Hct 34.3 on admission. Stable at this time 10.4 Monitor H/H. Bilateral SCDs for DVT prophylaxis. (10) Depression Current Visit: Yes Status: Chronic Assessment and plan: Hx of chronic depression. Continue pts. Elavil and Ativan. Qualifiers: Depression Type: unspecified Qualified Code(s): F32.9 - Major depressive disorder, single episode, unspecified (11) Sepsis Current Visit: Yes Status: Acute Assessment and plan: Continue with azithromycin and Rocephin for infection coverage blood cultures 2 pending urine okay chest x-ray bowel CHF clinical exclusion of pneumonia vital signs stable at this time afebrile continue with oxygen as needed Qualifiers: Sepsis type: sepsis due to unspecified organism Qualified Code(s): A41.9 - Sepsis, unspecified organism - Time Spent With Patient Total time spent is greater than 50% in coordination of care (as documented) at patient's floor/unit and/or counseling patient: - Subjective Interval history: Patient was seen and examined at the bedside patient is oriented to name and self. Denies any pain or discomfort at this time - Constitutional Vitals: Temp Pulse Resp BP Pulse Ox 98.1 F 92 16 128/71 98 11/13/17 16:07 11/13/17 16:07 11/13/17 16:07 11/13/17 16:07 11/13/17 16:07 General appearance: Present: cooperative, A&O X 2, mild distress (SOB), pleasant , obese, answers questions appropriately - Head Head exam: Present: atraumatic, normocephalic - Eye Eye exam: Present: PERRL, conjuntiva pink, sclera anicteric Pupils: Present: PERRL - Neck Neck exam general surgery: Present: supple, trachea midline. Absent: lymphadenopathy - Respiratory Respiratory exam: Present: CTAB. Absent: accessory muscle use, rales, rhonchi, wheezes - Cardiovascular Cardiovascular exam: Present: RRR, +S1, +S2. Absent: diastolic murmur, gallop, rubs, systolic murmur - GI/Abdominal GI/Abdominal exam: Present: normal bowel sounds, soft, no peritoneal signs. Absent: distended, tenderness - Extremities Exam Extremities exam: Present: warm, radial pulses palpable and symmetrical. Absent : calf tenderness, cyanotic, pedal edema - Neurological Exam Neurological exam: Present: CN II-XII intact, oriented X3, no focal deficits. Absent: pronater drift, facial droop, speech deficit - Skin Skin exam: Present: dry, intact Internal Medicine: Result - Labs CBC & Chem 7: 11/13/17 00:49 11/13/17 00:49 Labs: Short CBC 11/13/17 Range/Units 00:49 WBC 1.4 L D (4.3-11.1) K/mcL Hgb 10.4 L (11.5-15.4) g/dL Hct 31.0 L (35.3-44.9) % Plt Count 42 L (140-400) K/mcL Neutrophils # 1.2 L (1.6-8.9) K/mcL BMP 11/13/17 11/13/17 00:49 00:49 Sodium 132 L Potassium 3.4 L 3.4 L Chloride 99 Carbon Dioxide 23 BUN 13 Creatinine 0.74 Glucose 212 H Calcium 8.4 L Liver Function 11/13/17 Range/Units 00:49 Total Bilirubin 1.0 (0.3-1.0) mg/dL AST 32 (13-39) Units/L ALT 15 (7-52) Units/L Alkaline Phosphatase 75 (34-104) Units/L Albumin 2.8 L (3.5-5.7) g/dL Urine 11/13/17 Range/Units 09:50 Urine Color Yellow (Yellow) Urine Clarity Clear (Clear) Urine pH 6.5 (5.0-8.0) pH Units Ur Specific [place] 1.008 L (1.010-1.025) Urine Protein Negative (Neg-Trace) mg/dL Urine Glucose (UA) Normal (Normal) mg/dL - ABG Interpretation ABG results: ABG ABG pH 7.40 pH Units (7.32-7.45) 11/12/17 16:55 ABG pCO2 46 mmHg (35-45) H 11/12/17 16:55 ABG pO2 72 mmHg (85-104) L 11/12/17 16:55 ABG O2 Saturation 94 % (95-98) L 11/12/17 16:55 Consult Discharge Plan - Plan Referrals: Sy Beaver DO [Primary Care Provider] -
[2017-11-13] MEDS ORDERED: Potassium Chloride 20 MEQ, Lidocaine 1% 2 ML in D5% in Water 250 ML IVPB ONE (19:03)
[2017-11-13] MEDS: Furosemide 20 MG/2 ML VIAL IVP SCH (21:27)
[2017-11-13] MEDS: Sucralfate 1 GM TABLET PO SCH (21:28)
[2017-11-14 00:46] LABS: Basophils % 0.3 %; Eosinophils % 1.2 %; Hemoglobin 11.4 g/dL (11.5-15.4); Immature Granulocytes % 0.3 % (0-4); Red Cell Distribution Width 16.1 % (11.5-14.5)
[2017-11-14 00:47] LABS: Eosinophils # 0.1 K/mcL (0.0-0.6); Hematocrit 34.2 % (35.3-44.9); Immature Platelets 2.2 % (1.1-6.1); Lymphocytes # 0.9 K/mcL (0.6-4.6); Mean Corpuscular HGB Conc 33.3 g/dL (31.6-35.5); Mean Platelet Volume 9.4 fL (9.4-12.4); Monocytes # 0.7 K/mcL (0.0-1.3); Monocytes % 10.7 %; Neutrophils # 4.7 K/mcL (1.6-8.9); Segmented Neutrophils % 73.5 %
[2017-11-14 00:49] LABS: Platelet Count 97 K/mcL (140-400)
[2017-11-14 01:00] LABS: Alanine Aminotransferase 19 Units/L (7-52); Albumin 3.1 g/dL (3.5-5.7); Albumin/Globulin Ratio 0.9 (1.1-2.2); Alkaline Phosphatase 89 Units/L (34-104); Aspartate Amino Transferase 43 Units/L (13-39); BUN/Creatinine Ratio 17 (6-26); Bilirubin,Total 0.8 mg/dL (0.3-1.0); Blood Urea Nitrogen 16 mg/dL (8-23); Calcium 8.6 mg/dL (8.6-10.3); Carbon Dioxide 31 mEq/L (23-29); Chloride 99 mEq/L (98-107); Globulin 3.3 g/dL (2.4-3.5); Glucose 120 mg/dL (70-105); Osmolality,Calculated 280 (280-300); Potassium 4.2 mEq/L (3.5-5.1); Sodium 134 mEq/L (136-145); Total Protein 6.4 g/dL (6.4-8.9); eGFR For African Americans > 60 (> 60); eGFR For Non-African Americans 59 (> 60)
[2017-11-14 06:37] LABS: Estimated Average Glucose 97 mg/dl
[2017-11-14] MEDS: Furosemide 20 MG/2 ML VIAL IVP SCH ×2 (07:52→16:23)
[2017-11-14] MEDS: Lisinopril 20 MG TABLET PO SCH (07:52)
[2017-11-14] MEDS: Insulin LISPRO 300 UNITS/3 ML VIAL SQ SCH ×4 (07:57→20:04)
[2017-11-14] MEDS ORDERED: NON-FORMULARY MEDICATION 1 EACH EACH (Esomeprazole Magnesium [Nexium] 40 MG) PO SCH (09:00)
[2017-11-14] MEDS: Sucralfate 1 GM TABLET PO SCH ×4 (10:53→21:44)
[2017-11-14] MEDS: *HR* LORazepam 1 MG TABLET PO SCH ×4 (11:04→20:03)
[2017-11-14] MEDS: Pantoprazole 40 MG VIAL IVP SCH (11:04)
[2017-11-14 11:39] LABS: Magnesium 2.1 mg/dL (1.6-2.6)
[2017-11-14 14:20] LABS: Adenovirus Not Detected (Not Detect); Bordetella Pertussis Not Detected (Not Detect); Chlamydophila pneumoniae Not Detected (Not Detect); Coronavirus 229E Not Detected (Not Detect); Coronavirus HKU1 Not Detected (Not Detect); Coronavirus NL63 Not Detected (Not Detect); Coronavirus OC43 Not Detected (Not Detect); Human Metapneumovirus Not Detected (Not Detect); Human Rhinovirus/Enterovirus Not Detected (Not Detect); Influenza A Subtype 2009 H1 Not Detected (Not Detect); Influenza A Untypeable Not Detected (Not Detect); Influenza B Not Detected (Not Detect); Mycoplasma pneumoniae Not Detected (Not Detect); Parainfluenza Virus 1 Not Detected (Not Detect); Parainfluenza Virus 2 Not Detected (Not Detect); Parainfluenza Virus 3 Not Detected (Not Detect); Parainfluenza Virus 4 Not Detected (Not Detect); Respiratory Syncytial Virus Not Detected (Not Detect)
[2017-11-14] MEDS: cefTRIAXone 2,000 MG in Water for inj. (sterile) 20 ML 20 ML IVP SCH (16:55)
[2017-11-14] MEDS: Azithromycin 500 MG in D5% in Water 250 ML IVPB SCH (16:56)
--- NOTE | 2017-11-14 17:35 | Electrocardiograph Report ---
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
--- NOTE | 2017-11-14 19:34 | Electrocardiograph Report ---
[place] [address] Test Date: 2017-11-12 Pat Name: Amira Nieto Department: 104 Room: 3B44 Gender: F Dtp Operator: EVON : 1940 Requested By: Olvin Yanez Order Number: [id number] Reading MD: Luke Ayala Measurements Intervals [place] Rate: 93 P: 120 [place]: 182 QRS: -31 QRSD: 170 T: 111 QT: 421 QTc: 471 Interpretive Statements SINUS RHYTHM MARKED LEFT AXIS DEVIATION LEFT BUNDLE BRANCH BLOCK Electronically Signed On 11-14-2017 19:33:19 EDT by Luke Ayala
--- NOTE | 2017-11-14 20:46 | Internal Med Progress Note ---
Date of Encounter: 11/14/17 Time of Encounter: 12:00 - Assessment and plan (1) Sepsis Current Visit: Yes Status: Acute Assessment and plan: Continue with azithromycin and Rocephin for infection coverage blood cultures 2 pending urine okay chest x-ray bowel CHF clinical exclusion of pneumonia vital signs stable at this time afebrile continue with oxygen as needed white count improving Qualifiers: Sepsis type: sepsis due to unspecified organism Qualified Code(s): A41.9 - Sepsis, unspecified organism (2) Acute exacerbation of CHF (congestive heart failure) Current Visit: Yes Status: Acute Assessment and plan: Continue with Lasix 20 mg twice a day IV Monitor intake output daily weights Fluid restriction 1500 mL's Low-sodium diet Qualifiers: Heart failure type: diastolic Qualified Code(s): I50.33 - Acute on chronic diastolic (congestive) heart failure (3) Diabetes mellitus type 2 in obese Current Visit: Yes Status: Chronic Assessment and plan: We will hold oral medications for now and start sliding scale insulin and Accu- Cheks before meals and at bedtime A1c pending (4) DVT prophylaxis Current Visit: Yes Status: Acute Assessment and plan: Bilateral SCDs on LEs for DVT prophylaxis d/t report of hx of bleeding ulcers and current Hgb of 10.4 (5) Hypokalemia Current Visit: Yes Status: Acute Assessment and plan: Potassium stable at this time we will continue to monitor (6) Dementia Current Visit: Yes Status: Chronic Assessment and plan: History of chronic dementia. We will hold Aricept for now azithromycin due to QT prolongation. Continue with sitter and falls precautions Qualifiers: Dementia type: unspecified type Dementia behavioral disturbance: without behavioral disturbance Qualified Code(s): F03.90 - Unspecified dementia without behavioral disturbance (7) GERD (gastroesophageal reflux disease) Current Visit: Yes Status: Chronic Assessment and plan: Hx of chronic GERD. IVP Protonix 40 mg daily. Qualifiers: Esophagitis presence: esophagitis presence not specified Qualified Code(s) : K21.9 - Gastro-esophageal reflux disease without esophagitis (8) HTN (hypertension) Current Visit: Yes Status: Chronic Assessment and plan: History of hypertension continue with home medications hydralazine 10 mg IV as needed Qualifiers: Hypertension type: essential hypertension Qualified Code(s): I10 - Essential (primary) hypertension (9) HLD (hyperlipidemia) Current Visit: Yes Status: Chronic Assessment and plan: Lipid panel looks good history of chronic hyperlipidemia Qualifiers: Hyperlipidemia type: pure hypercholesterolemia Qualified Code(s): E78.00 - Pure hypercholesterolemia, unspecified; E78.0 - Pure hypercholesterolemia (10) History of bleeding ulcers Current Visit: Yes Status: Chronic Assessment and plan: Hx of bleeding ulcers. Hgb 11.4 and Hct 34.3 on admission. Stable at this time 10.4 Monitor H/H. Bilateral SCDs for DVT prophylaxis. (11) Depression Current Visit: Yes Status: Chronic Assessment and plan: Hx of chronic depression. Continue pts. Elavil and Ativan. Qualifiers: Depression Type: unspecified Qualified Code(s): F32.9 - Major depressive disorder, single episode, unspecified - Time Spent With Patient Total time spent is greater than 50% in coordination of care (as documented) at patient's floor/unit and/or counseling patient: - Subjective Interval history: Patient was seen and examined at the bedside patient is oriented to name and self. Denies any pain or discomfort at this time - Constitutional Vitals: Temp Pulse Resp BP Pulse Ox 98.0 F 100 16 163/98 97 11/14/17 20:00 11/14/17 20:00 11/14/17 20:00 11/14/17 20:00 11/14/17 20:12 General appearance: Present: cooperative, A&O X 2, pleasant, obese, answers questions appropriately - Head Head exam: Present: atraumatic, normocephalic - Eye Eye exam: Present: PERRL, conjuntiva pink, sclera anicteric Pupils: Present: PERRL - Neck Neck exam general surgery: Present: supple, trachea midline. Absent: lymphadenopathy - Respiratory Respiratory exam: Present: rales. Absent: accessory muscle use, rhonchi, wheezes - Cardiovascular Cardiovascular exam: Present: RRR, +S1, +S2. Absent: diastolic murmur, gallop, rubs, systolic murmur - GI/Abdominal GI/Abdominal exam: Present: normal bowel sounds, soft, no peritoneal signs. Absent: distended, tenderness - Extremities Exam Extremities exam: Present: warm, radial pulses palpable and symmetrical. Absent : calf tenderness, cyanotic, pedal edema - Neurological Exam Neurological exam: Present: CN II-XII intact, oriented X3, no focal deficits. Absent: pronater drift, facial droop, speech deficit - Skin Skin exam: Present: dry, intact Internal Medicine: Result - Labs CBC & Chem 7: 11/14/17 00:31 11/14/17 00:31 Labs: Short CBC 11/14/17 Range/Units 00:31 WBC 6.4 D (4.3-11.1) K/mcL Hgb 11.4 L (11.5-15.4) g/dL Hct 34.2 L (35.3-44.9) % Plt Count 97 L D (140-400) K/mcL Neutrophils # 4.7 (1.6-8.9) K/mcL BMP 11/14/17 00:31 Sodium 134 L Potassium 4.2 Chloride 99 Carbon Dioxide 31 H BUN 16 Creatinine 0.92 Glucose 120 H Calcium 8.6 Liver Function 11/14/17 Range/Units 00:31 Total Bilirubin 0.8 (0.3-1.0) mg/dL AST 43 H (13-39) Units/L ALT 19 (7-52) Units/L Alkaline Phosphatase 89 (34-104) Units/L Albumin 3.1 L (3.5-5.7) g/dL - ABG Interpretation ABG results: ABG ABG pH 7.40 pH Units (7.32-7.45) 11/12/17 16:55 ABG pCO2 46 mmHg (35-45) H 11/12/17 16:55 ABG pO2 72 mmHg (85-104) L 11/12/17 16:55 ABG O2 Saturation 94 % (95-98) L 11/12/17 16:55 - Impressions Impressions Echocardiogram 11/13/17 18:37 Impressions: LVEF 55%. Not all LV wall segments are well visualized. Atypical septal motion due to BBB. Indeterminate diastolic function. Normal right ventricular structure and function. Bi-atrial enlargement. Moderate mitral regurgitation. Mild-moderate tricuspid regurgitation. Moderate pulmonary hypertension by TR gradient. IVC is not well visualized. Left Ventricular Wall Motion: Rest Echo Findings The mid anterior septal, mid inferior lateral, basal anterior septal and basal inferior lateral jiménez were not visualized. All other wall segments showed normal motion. Findings: Study Quality * Technically adequate exam. ECG Findings * Normal sinus rhythm. Left Ventricle * LVEF 55%. * Indeterminate diastolic function. * Normal LV chamber size and wall thickness. Right Ventricle * Normal right ventricular structure and function. Left Atrium * Severely dilated left atrium. Right Atrium * Moderately dilated right atrium. Aortic Valve * No aortic regurgitation. * Trileaflet aortic valve. * No aortic stenosis. Mitral Valve * Mildly thickened mitral valve leaflets. * Moderate mitral regurgitation. * No mitral stenosis. Tricuspid Valve * Normal tricuspid valve structure. * Mild-moderate tricuspid regurgitation. Pulmonic Valve * Pulmonic valve is not well visualized. * No pulmonic stenosis. * Trace pulmonic regurgitation. Pulmonary Artery * Pulmonary artery not well visualized. Aorta * Normally sized aortic root. Interatrial Septum * Interatrial septum not well evaluated. IVC * The IVC is not well evaluated. Consult Discharge Plan - Plan Referrals: Sy Beaver DO [Primary Care Provider] -
[2017-11-15 03:18] LABS: Basophils % 0.6 %; Hemoglobin 10.4 g/dL (11.5-15.4)
[2017-11-15 03:20] LABS: Eosinophils # 0.1 K/mcL (0.0-0.6); Eosinophils % 2.1 %; Hematocrit 31.7 % (35.3-44.9); Immature Granulocytes % 0.6 % (0-4); Immature Platelets 1.8 % (1.1-6.1); Lymphocytes # 0.6 K/mcL (0.6-4.6); Mean Corpuscular HGB Conc 32.8 g/dL (31.6-35.5); Mean Corpuscular Hemoglobin 29.9 pg (28.0-33.3); Mean Corpuscular Volume 91.1 fL (83.0-100.0); Mean Platelet Volume 9.9 fL (9.4-12.4); Monocytes # 0.4 K/mcL (0.0-1.3); Monocytes % 10.5 %; Neutrophils # 2.3 K/mcL (1.6-8.9); Red Blood Count 3.48 M/mcL (3.82-4.97); Segmented Neutrophils % 68.2 %
[2017-11-15 03:25] LABS: Platelet Count 73 K/mcL (140-400)
[2017-11-15 03:32] LABS: Alanine Aminotransferase 18 Units/L (7-52); Albumin 2.9 g/dL (3.5-5.7); Alkaline Phosphatase 79 Units/L (34-104); Aspartate Amino Transferase 40 Units/L (13-39); BUN/Creatinine Ratio 18 (6-26); Bilirubin,Total 0.9 mg/dL (0.3-1.0); Blood Urea Nitrogen 14 mg/dL (8-23); Calcium 8.6 mg/dL (8.6-10.3); Carbon Dioxide 33 mEq/L (23-29); Chloride 99 mEq/L (98-107); Glucose 132 mg/dL (70-105); Osmolality,Calculated 284 (280-300); Potassium 3.9 mEq/L (3.5-5.1); Sodium 136 mEq/L (136-145); Total Protein 5.9 g/dL (6.4-8.9); eGFR For African Americans > 60 (> 60); eGFR For Non-African Americans > 60 (> 60)
--- NOTE | 2017-11-15 06:50 | Electrocardiograph Report ---
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
[2017-11-15] MEDS: Sucralfate 1 GM TABLET PO SCH ×4 (08:13→20:42)
[2017-11-15] MEDS: Furosemide 20 MG/2 ML VIAL IVP SCH ×2 (08:13→17:26)
[2017-11-15] MEDS: *HR* LORazepam 1 MG TABLET PO SCH ×4 (08:13→20:42)
[2017-11-15] MEDS: Pantoprazole 40 MG VIAL IVP SCH (08:13)
[2017-11-15] MEDS: Insulin LISPRO 300 UNITS/3 ML VIAL SQ SCH ×4 (08:13→20:43)
[2017-11-15] MEDS: Lisinopril 20 MG TABLET PO SCH (08:14)
--- NOTE | 2017-11-15 14:35 | Internal Med Progress Note ---
Date of Encounter: 11/15/17 Time of Encounter: 14:32 - Assessment and plan (1) Acute exacerbation of CHF (congestive heart failure) Current Visit: Yes Status: Acute Assessment and plan: Continue with Lasix 20 mg twice a day IV Monitor intake output daily weights Fluid restriction 1500 mL's Low-sodium diet HOB >45 degrees I.S. Wean O2, currentlt at bedside on 4L NC Qualifiers: Heart failure type: diastolic Qualified Code(s): I50.33 - Acute on chronic diastolic (congestive) heart failure (2) Sepsis Current Visit: Yes Status: Acute Assessment and plan: Continue with azithromycin and Rocephin for infection coverage blood cultures 2 pending urine okay chest x-ray bowel CHF clinical exclusion of pneumonia vital signs stable at this time afebrile continue with oxygen as needed white count improving - Resolved Qualifiers: Sepsis type: sepsis due to unspecified organism Qualified Code(s): A41.9 - Sepsis, unspecified organism (3) Diabetes mellitus type 2 in obese Current Visit: Yes Status: Chronic Assessment and plan: We will hold oral medications for now and start sliding scale insulin and Accu- Cheks before meals and at bedtime A1c pending (4) Hypokalemia Current Visit: Yes Status: Acute Assessment and plan: Potassium stable at this time we will continue to monitor. (5) Dementia Current Visit: Yes Status: Chronic Qualifiers: Dementia type: unspecified type Dementia behavioral disturbance: without behavioral disturbance Qualified Code(s): F03.90 - Unspecified dementia without behavioral disturbance (6) GERD (gastroesophageal reflux disease) Current Visit: Yes Status: Chronic Qualifiers: Esophagitis presence: esophagitis presence not specified Qualified Code(s) : K21.9 - Gastro-esophageal reflux disease without esophagitis (7) HTN (hypertension) Current Visit: Yes Status: Chronic Qualifiers: Hypertension type: essential hypertension Qualified Code(s): I10 - Essential (primary) hypertension (8) HLD (hyperlipidemia) Current Visit: Yes Status: Chronic Qualifiers: Hyperlipidemia type: pure hypercholesterolemia Qualified Code(s): E78.00 - Pure hypercholesterolemia, unspecified; E78.0 - Pure hypercholesterolemia (9) History of bleeding ulcers Current Visit: Yes Status: Chronic (10) Depression Current Visit: Yes Status: Chronic Qualifiers: Depression Type: unspecified Qualified Code(s): F32.9 - Major depressive disorder, single episode, unspecified (11) DVT prophylaxis Current Visit: Yes Status: Acute Assessment and plan: Bilateral SCDs on LEs for DVT prophylaxis d/t report of hx of bleeding ulcers and current Hgb of 10.4 - Time Spent With Patient Total time spent is greater than 50% in coordination of care (as documented) at patient's floor/unit and/or counseling patient: - Subjective Interval history: Patient has no complaints. Still on O2. - Constitutional Vitals: Temp Pulse Resp BP Pulse Ox 98.0 F 68 15 107/60 97 11/15/17 12:23 11/15/17 12:23 11/15/17 12:23 11/15/17 12:23 11/15/17 12:23 General appearance: Present: cooperative, A&O X 2, pleasant, obese, answers questions appropriately Exam: - Head Head exam: Present: atraumatic, normocephalic - Eye Eye exam: Present: PERRL, conjuntiva pink, sclera anicteric Pupils: Present: PERRL - Neck Neck exam general surgery: Present: supple, trachea midline. Absent: lymphadenopathy - Respiratory Respiratory exam: Present: rales. Absent: accessory muscle use, rhonchi, wheezes - Cardiovascular Cardiovascular exam: Present: RRR, +S1, +S2. Absent: diastolic murmur, gallop, rubs, systolic murmur - GI/Abdominal GI/Abdominal exam: Present: normal bowel sounds, soft, no peritoneal signs. Absent: distended, tenderness - Extremities Exam Extremities exam: Present: warm, radial pulses palpable and symmetrical. Absent : calf tenderness, cyanotic, pedal edema - Neurological Exam Neurological exam: Present: CN II-XII intact, oriented X3, no focal deficits. Absent: pronater drift, facial droop, speech deficit - Skin Skin exam: Present: dry, intact Internal Medicine: Result - Labs CBC & Chem 7: 11/15/17 02:50 11/15/17 02:50 Labs: Short CBC 11/15/17 Range/Units 02:50 WBC 3.3 L (4.3-11.1) K/mcL Hgb 10.4 L (11.5-15.4) g/dL Hct 31.7 L (35.3-44.9) % Plt Count 73 L (140-400) K/mcL Neutrophils # 2.3 (1.6-8.9) K/mcL BMP 11/15/17 02:50 Sodium 136 Potassium 3.9 Chloride 99 Carbon Dioxide 33 H BUN 14 Creatinine 0.79 Glucose 132 H Calcium 8.6 Liver Function 11/15/17 Range/Units 02:50 Total Bilirubin 0.9 (0.3-1.0) mg/dL AST 40 H (13-39) Units/L ALT 18 (7-52) Units/L Alkaline Phosphatase 79 (34-104) Units/L Albumin 2.9 L (3.5-5.7) g/dL - ABG Interpretation ABG results: ABG ABG pH 7.40 pH Units (7.32-7.45) 11/12/17 16:55 ABG pCO2 46 mmHg (35-45) H 11/12/17 16:55 ABG pO2 72 mmHg (85-104) L 11/12/17 16:55 ABG O2 Saturation 94 % (95-98) L 11/12/17 16:55 Consult Discharge Plan - Plan Referrals: Sy Beaver DO [Primary Care Provider] -
[2017-11-15] MEDS ORDERED: Azithromycin 250 MG TABLET PO SCH (17:00)
[2017-11-15] MEDS: cefTRIAXone 2,000 MG in Water for inj. (sterile) 20 ML 20 ML IVP SCH (17:26)
[2017-11-16 00:11] VITALS: BP 122/73
[2017-11-16 06:18] LABS: Hemoglobin 10.3 g/dL (11.5-15.4); Red Cell Distribution Width 15.8 % (11.5-14.5)
[2017-11-16 06:20] LABS: Basophils % 0.7 %; Eosinophils # 0.1 K/mcL (0.0-0.6); Eosinophils % 3.4 %; Hematocrit 31.6 % (35.3-44.9); Immature Granulocytes % 0.3 % (0-4); Immature Platelets 2.6 % (1.1-6.1); Lymphocytes # 0.6 K/mcL (0.6-4.6); Lymphocytes % 21.2 %; Mean Corpuscular HGB Conc 32.6 g/dL (31.6-35.5); Mean Corpuscular Hemoglobin 29.5 pg (28.0-33.3); Mean Corpuscular Volume 90.5 fL (83.0-100.0); Mean Platelet Volume 10.6 fL (9.4-12.4); Monocytes # 0.3 K/mcL (0.0-1.3); Monocytes % 10.2 %; Neutrophils # 1.9 K/mcL (1.6-8.9); Red Blood Count 3.49 M/mcL (3.82-4.97); Segmented Neutrophils % 64.2 %
[2017-11-16 06:24] LABS: Platelet Count 72 K/mcL (140-400)
[2017-11-16 06:35] LABS: Alanine Aminotransferase 19 Units/L (7-52); Albumin 2.9 g/dL (3.5-5.7); Alkaline Phosphatase 78 Units/L (34-104); Aspartate Amino Transferase 37 Units/L (13-39); BUN/Creatinine Ratio 13 (6-26); Bilirubin,Total 1.1 mg/dL (0.3-1.0); Blood Urea Nitrogen 11 mg/dL (8-23); Calcium 8.6 mg/dL (8.6-10.3); Carbon Dioxide 36 mEq/L (23-29); Chloride 96 mEq/L (98-107); Globulin 2.9 g/dL (2.4-3.5); Glucose 116 mg/dL (70-105); Osmolality,Calculated 280 (280-300); Potassium 3.6 mEq/L (3.5-5.1); Sodium 135 mEq/L (136-145); Total Protein 5.8 g/dL (6.4-8.9); eGFR For African Americans > 60 (> 60); eGFR For Non-African Americans > 60 (> 60)
[2017-11-16] MEDS: Lisinopril 20 MG TABLET PO SCH (08:58)
[2017-11-16] MEDS: *HR* LORazepam 1 MG TABLET PO SCH ×2 (08:59→12:58)
[2017-11-16] MEDS: Furosemide 20 MG/2 ML VIAL IVP SCH (08:59)
[2017-11-16] MEDS: Sucralfate 1 GM TABLET PO SCH ×2 (08:59→12:58)
[2017-11-16] MEDS: Insulin LISPRO 300 UNITS/3 ML VIAL SQ SCH ×2 (09:01→12:58)
[2017-11-16] MEDS ORDERED: NON-FORMULARY MEDICATION 1 EACH EACH (Risedronate Sodium [Actonel] 35 MG) PO SCH (13:00)
--- NOTE | 2017-11-16 13:15 | Physician Discharge Referral ---
Home Health/Hosp Referral Info Transfer to: Home Health - Diagnosis (1) Dementia Priority: Secondary Status: Chronic (2) Sepsis Priority: Primary Status: Acute (3) Acute exacerbation of CHF (congestive heart failure) Priority: Primary Status: Acute - Respiratory Orders Smoking Cessation: Smoking cessation has been advised. For more information, call the [place] Tobacco Quit Line at 0-437-WMAQ-NOW. - Diet/Nutrition Diet/Nutrition Orders: Cardiac - Activity Activity Orders: Up ad max - Services Needed Following services are medically necessary services: Nursing, Home Health Aide, Physical Therapy, Occupational Therapy - Transfer Medications Prescriptions: Furosemide [Lasix] 20 mg IVP BIDDIURETIC #60 tab Home Medications: Amitriptyline [Elavil] 40 mg PO HS 07/04/16 [History] Donepezil HCl [Aricept] 5 mg PO DAILY 07/04/16 [History] Escitalopram [Lexapro] 20 mg PO DAILY 07/04/16 [History] Esomeprazole Magnesium [Nexium] 40 mg PO DAILY 07/04/16 [History] LORazepam [Ativan] 1 mg PO QID 07/04/16 [History] Lisinopril [Zestril] 40 mg PO DAILY 07/04/16 [History] Metoprolol [Lopressor] 25 mg PO BID 07/04/16 [History] Oxycodone HCl/Acetaminophen [Percocet 10-325 mg Tablet] 1 tab PO Q8H PRN [History] Risedronate Sodium [Actonel] 35 mg PO QWEEK 07/04/16 [History] Simvastatin [Zocor] 20 mg PO HS 07/04/16 [History] Sucralfate [Carafate] 1 gm PO QIDAC 07/04/16 [History] metFORMIN [Glucophage] 500 mg PO BIDWM 07/04/16 [History] Furosemide [Lasix] 20 mg IVP BIDDIURETIC #60 tab 11/16/17 [Rx] Allergies/Adverse Reactions: 3 Allergy/AdvReac Type Severity Reaction Status Date / Time haloperidol Allergy Hallucinati Verified 09/09/17 13:46 ng Certification: Further, I certify that my clinical findings support that this patient is homebound (i.e. absences from home require considerable and taxing effort and are for medical reasons or gnosticist services or infrequently or short duration when for other reasons) because:confusion and fall risk. Homebound Reason: Altered mental status requiring supervision when leaving home Attestation: My signature below is to certify that this patient is under my care and that I, or nurse practitioner, or a physician's assistant manager working with me, has a face-to -face encounter with this patient.
--- NOTE | 2017-11-16 13:43 | Discharge Summary ---
- NOTES TO OUTPATIENT PROVIDER Notes to Outpatient Provider: f/u with PCP within a week. Date of Encounter: 11/16/17 Time of Encounter: 13:42 - Discharge Diagnosis (1) Dementia Priority: Secondary Status: Chronic Qualifiers: Dementia type: unspecified type Dementia behavioral disturbance: without behavioral disturbance Qualified Code(s): F03.90 - Unspecified dementia without behavioral disturbance (2) Sepsis Priority: Primary Status: Resolved Qualifiers: Sepsis type: sepsis due to unspecified organism Qualified Code(s): A41.9 - Sepsis, unspecified organism (3) Acute exacerbation of CHF (congestive heart failure) Priority: Primary Status: Acute Qualifiers: Heart failure type: diastolic Qualified Code(s): I50.33 - Acute on chronic diastolic (congestive) heart failure Hospital course: Ms. Nieto is a 77 year old female w/PMH of cirrhosis, osteoporosis, dementia, diabetes, GERD, HTN, HLD, hx of bleeding ulcers, and depression presents from the ED w/CC of SOB and dyspnea for the past year that has become progressively worse over the past week. Pts. son reports intermittent pedal edema. Also states that pt. is having diarrhea and has hx of bleeding ulcers and was d/t have EGD done but it has not been scheduled. Hgb 11.4 on admission. Pts. son denies unusual bleeding. Pt. reports that she has not been eating very much lately d/t loss of appetite. Pts. son reports pt. has had fever, chills, SOB, dyspnea, and weakness in bilateral LEs but denies nausea, vomiting, changes in vision, headache, chest pain, abdominal pain, constipation, numbness, tingling, dizziness, lightheadedness, pre-syncope, or syncope. He was hospitalized for further workup. BNP 302. Chest x-ray revealed mild pulmonary edema. Echocardiogram revealed preserved ejection fraction, indeterminate diastolic dysfunction, and bi-atrial dilation. She was started on low-dose Lasix with improvement of symptoms. She was also started on IV abx for possible pneumonia. Her symptoms has much improved with treatment. She will be discharged home with home health today. She was instructed to continue lasix and oral abx as ordered. She will f/u with PCP within one week. Discharge discussed with: patient Time spent discussing smoking cessation with patient: more than 10 minutes - Time Spent with Patient Total time spent providing and/or coordinating discharge services: Greater than 30 minutes - Discharge Medications Prescriptions: Amoxicillin/Clavulanate [Augmentin] 875 mg PO BIDWM #14 tablet Furosemide [Lasix] 20 mg IVP BIDDIURETIC #60 tab Home Medications: Amitriptyline [Elavil] 40 mg PO HS 07/04/16 [History] Donepezil HCl [Aricept] 5 mg PO DAILY 07/04/16 [History] Escitalopram [Lexapro] 20 mg PO DAILY 07/04/16 [History] Esomeprazole Magnesium [Nexium] 40 mg PO DAILY 07/04/16 [History] LORazepam [Ativan] 1 mg PO QID 07/04/16 [History] Lisinopril [Zestril] 40 mg PO DAILY 07/04/16 [History] Metoprolol [Lopressor] 25 mg PO BID 07/04/16 [History] Oxycodone HCl/Acetaminophen [Percocet 10-325 mg Tablet] 1 tab PO Q8H PRN [History] Risedronate Sodium [Actonel] 35 mg PO QWEEK 07/04/16 [History] Simvastatin [Zocor] 20 mg PO HS 07/04/16 [History] Sucralfate [Carafate] 1 gm PO QIDAC 07/04/16 [History] metFORMIN [Glucophage] 500 mg PO BIDWM 07/04/16 [History] Amoxicillin/Clavulanate [Augmentin] 875 mg PO BIDWM #14 tablet 11/16/17 [Rx] Furosemide [Lasix] 20 mg IVP BIDDIURETIC #60 tab 11/16/17 [Rx] Allergies/Adverse Reactions: 3 Allergy/AdvReac Type Severity Reaction Status Date / Time haloperidol Allergy Hallucinati Verified 09/09/17 13:46 ng Date of admission: 11/12/17 18:53 Primary care physician: Brayan Beaver DO Consults: 11/12/17 19:03 Consult to Nutrition [CONS] Routine Comment: [place] Ensure or Boost Consulting Provider: NUTRITION Reason for Dietary Consult: PO Supplementation 11/14/17 09:27 Consult to Nurse Navigator [CONS] Routine Comment: CHF Anticipated date of discharge: 11/16/17 - Constitutional Vitals: Temp Pulse Resp BP Pulse Ox 97.5 F L 63 19 122/73 98 11/16/17 11:47 11/16/17 11:47 11/16/17 11:47 11/16/17 00:10 11/16/17 11:47 General appearance: Present: cooperative, A&O X 2, pleasant, obese, answers questions appropriately Exam: PHYSICAL EXAMINATION: GENERAL APPEARANCE: The patient is alert, and in no acute distress. HEENT: Head is normocephalic. The sinuses are nontender. Pupils are equal and reactive. The nares are patent. Oropharynx clear without lesions. NECK: Supple without lymphadenopathy. HEART: Regular rate and rhythm. LUNGS: No crackles or wheezes are heard. ABDOMEN: Soft, nontender, nondistended with good bowel sounds heard. Inguinal area is normal. EXTREMITIES: Without cyanosis, clubbing or edema. NEUROLOGICAL: Gross nonfocal. SKIN: Warm and dry without any rash. - Patient Status Disposition: Home Health Service Condition: Fair Functional capacity at discharge: wheelchair bound Overall status at discharge: patient is back to baseline - Discharge Instructions Follow Up With: Sy Beaver DO [Primary Care Provider] - 11/23/17 9:30 am - Diet and Activity Activity: increase activity as tolerated Diet: advance to your usual diet
== END 2017-11-16 16:51 | disposition home health service (06) | DRG 871 ==
LOC: EMEROO 14:03 → 3BNU 14:03 → OBSVTOIN 18:53 → 3BNU 20:37
PROVIDERS: ADMIT Student in an Organized Health Care Education/Training Program; ATTEND Student in an Organized Health Care Education/Training Program

== ENCOUNTER 2018-01-22 21:04 | Inpatient (IN) ==
[2018-01-22 21:35] LABS: Bilirubin,Urine Negative (Negative); Blood,Urine Moderate (Negative); Clarity,Urine Clear (Clear); Color,Urine Yellow (Yellow); Glucose,Urine (UA) Normal (Normal); Ketones,Urine Negative (Negative); Leukocyte Esterase,Urine Small (Negative); Nitrite,Urine Negative (Negative); Protein,Urine Negative (Neg-Trace); Specific Gravity,Urine 1.011 (1.010-1.025); Urobilinogen,Urine Normal (Normal)
[2018-01-22 21:36] LABS: Bacteria,Urine None Seen per hpf (None-Few); Hyaline Casts,Urine None Seen per lpf (None-Few); RBC,Urine 0-3 per hpf (0-3); Squamous Epithelial Cell,Urine Many per lpf (None-Few); WBC,Urine 0-3 per hpf (0-3)
--- NOTE | 2018-01-22 21:52 | Emergency Department Note ---
Disposition Clinical Impression: Hypokalemia Chest pain Qualifiers: Chest pain type: precordial pain Qualified Code(s): R07.2 - Precordial pain Disposition: Admitted As Inpatient Condition: Good Time of Disposition: 23:25 General Adult HPI - General Time Seen by Provider: 01/22/18 21:06 Source: patient, family, EMS Limitations: no limitations - History of Present Illness HPI Narrative: This is a 77-year-old female brought in by EMS because of chest pain with associated shortness of breath. His apparently started only a short time prior to arrival. Patient herself had some level of dementia and does not provide a very good history of present illness, but her son is more clear and she lives with him. He states that she was doing fine until less than 1 hour prior to arrival. Pain Scale: 0 - Related Data Home Medications Medication Instructions Recorded Confirmed Amitriptyline [Elavil] 40 mg PO HS 07/04/16 11/13/17 Donepezil HCl [Aricept] 5 mg PO DAILY 07/04/16 11/13/17 Escitalopram [Lexapro] 20 mg PO DAILY 07/04/16 11/13/17 Esomeprazole Magnesium [Nexium] 40 mg PO DAILY 07/04/16 11/13/17 LORazepam [Ativan] 1 mg PO QID 07/04/16 11/13/17 Lisinopril [Zestril] 40 mg PO DAILY 07/04/16 11/13/17 Metoprolol [Lopressor] 25 mg PO BID 07/04/16 11/13/17 Oxycodone HCl/Acetaminophen 1 tab PO Q8H PRN 07/04/16 11/13/17 [Percocet 10-325 mg Tablet] Risedronate Sodium [Actonel] 35 mg PO QWEEK 07/04/16 11/13/17 Simvastatin [Zocor] 20 mg PO HS 07/04/16 11/13/17 Sucralfate [Carafate] 1 gm PO QIDAC 07/04/16 11/13/17 metFORMIN [Glucophage] 500 mg PO BIDWM 07/04/16 11/13/17 Previous Rx's Medication Instructions Recorded Amoxicillin/Clavulanate [Augmentin] 875 mg PO BIDWM #14 tablet 11/16/17 Furosemide [Lasix] 20 mg IVP BIDDIURETIC #60 tab 11/16/17 Furosemide [Lasix] 20 mg PO BID #60 tablet 11/16/17 Allergies Allergy/AdvReac Type Severity Reaction Status Date / Time haloperidol Allergy Hallucinati Verified 09/09/17 13:46 ng All systems ED: reviewed and negative except as stated. Cardiovascular: Reports: chest pain Respiratory: Reports: dyspnea Past Medical History - Past Medical History Medical history: Reports: cirrhosis, dementia, diabetes, GERD, hyperlipidemia, hypertension, other Surgical history: Reports: hysterectomy Psychiatric history: Reports: depression LOG FEEDER history: Reports: no LOG FEEDER history - Social History Smoking Status: Never smoker Smokeless Tobacco Status: No Alcohol use: Reports: none Drug use: Reports: none Physical Exam - General Limitations: other (Dementia) General appearance: alert, in distress (In mild distress but appears primarily anxious) - Head Head exam: atraumatic, normocephalic, normal inspection - Chest Chest inspection: Present: normal inspection, symmetric chest wall rise - Respiratory Respiratory exam: Present: wheezes (There are expiratory wheezes in the apices, breath sounds are severely decreased in the bases). Absent: respiratory distress - Cardiovascular Cardiovascular exam: Present: bradycardia, irregular rhythm - Abdominal Exam Abdominal exam: Present: soft, Non-Tender. Absent: tenderness, distention, guarding, rebound, rigidity - Extremities Exam Extremities exam: Present: normal inspection, pedal edema (Nonpitting bilateral pedal edema). Absent: tenderness - Neurological Exam Neurological exam: Present: alert, CN II-XII intact - Psychiatric Psychiatric exam: Present: anxious - Skin Skin exam: Present: warm, dry, intact, normal color Course Course Narrative: I examined the patient's lungs and heart using bedside ultrasound with the phased-array probe which showed low ejection fraction, perhaps 40%, but no B- lines in the lungs. Vital Signs Temperature 98.4 F 01/22/18 21:33 Pulse Rate 66 01/22/18 21:33 Respiratory Rate 21 01/22/18 21:33 Blood Pressure 115/44 01/22/18 21:33 O2 Sat by Pulse Oximetry 98 01/22/18 21:33 Temperature 98.4 F 01/22/18 21:33 Pulse Rate 67 01/22/18 21:43 Respiratory Rate 19 01/22/18 21:43 Blood Pressure 102/51 01/22/18 21:43 O2 Sat by Pulse Oximetry 98 01/22/18 21:43 Oxygen Delivery Oxygen Delivery Nasal Cannula Medical Decision Making - MDM Narrative Medical decision making narrative: This is a 77-year-old female with chest pain or shortness of breath, a relatively unremarkable initial evaluation, but appropriate for an ACS rule out. She also has significant hypokalemia, and was given supplemental potassium chloride. - Lab Data Lab results reviewed: Yes I reviewed the patient's lab results. Lab results narrative: CBC shows leukopenia, anemia, and thrombocytopenia consistent with pancytopenia BMP showed hypokalemia at 2.4 Troponin was slightly elevated at 0.04 Result diagrams: 01/22/18 21:43 01/22/18 21:10 Lab Results 01/22/18 01/22/18 01/22/18 Range/Units 21:10 21:27 21:43 WBC 3.2 L (4.3-11.1) K/mcL RBC 3.41 L (3.82-4.97) M/mcL Hgb 10.2 L (11.5-15.4) g/dL Hct 29.4 L (35.3-44.9) % MCV 86.2 (83.0-100.0) fL MCH 29.9 (28.0-33.3) pg MCHC 34.7 (31.6-35.5) g/dL RDW 14.3 (11.5-14.5) % Plt Count 83 L (140-400) K/mcL MPV 9.7 (9.4-12.4) fL Immature Gran % 0.3 (0-4) % Seg Neutrophils % 76.4 % Lymphocytes % 11.5 % Monocytes % 9.3 % Eosinophils % 1.9 % Basophils % 0.6 % Neutrophils # 2.4 (1.6-8.9) K/mcL Lymphocytes # 0.4 L (0.6-4.6) K/mcL Monocytes # 0.3 (0.0-1.3) K/mcL Eosinophils # 0.1 (0.0-0.6) K/mcL Basophils # 0.0 (0.0-0.2) K/mcL Immature Plt Fraction 2.8 (1.1-6.1) % Sodium 134 L (136-145) mEq/L Potassium 2.4 L* (3.5-5.1) mEq/L Chloride 95 L (98-107) mEq/L Carbon Dioxide 30 H (23-29) mEq/L BUN 14 (8-23) mg/dL Creatinine 0.90 (0.60-1.20) mg/dL Est GFR ( Amer) > 60 (> 60) Est GFR (Non-Af Amer) > 60 (> 60) BUN/Creatinine Ratio 16 (6-26) Glucose 176 H (70-105) mg/dL Calculated Osmolality 283 (280-300) Lactic Acid (0.5-2.2) mmol/L Calcium 8.4 L (8.6-10.3) mg/dL Troponin I 0.04 H* (< 0.04) ng/mL Urine Color Yellow (Yellow) Urine Clarity Clear (Clear) Urine pH 7.0 (5.0-8.0) pH Units Ur Specific [place] 1.011 (1.010-1.025) Urine Protein Negative (Neg-Trace) mg/dL Urine Glucose (UA) Normal (Normal) mg/dL Urine Ketones Negative (Negative) mg/dL Urine Blood Moderate H (Negative) Urine Nitrite Negative (Negative) Urine Bilirubin Negative (Negative) Urine Urobilinogen Normal (Normal) mg/dL Ur Leukocyte Esterase Small H (Negative) Urine Microscopic RBC 0-3 (0-3) per hpf Urine Microscopic WBC 0-3 (0-3) per hpf Ur Squamous Epith Cells Many H (None-Few) per lpf Urine Bacteria None Seen (None-Few) per hpf Hyaline Casts None Seen (None-Few) per lpf Ur Culture Indicated? NO. A (NO) 01/22/18 Range/Units 21:43 WBC (4.3-11.1) K/mcL RBC (3.82-4.97) M/mcL Hgb (11.5-15.4) g/dL Hct (35.3-44.9) % MCV (83.0-100.0) fL MCH (28.0-33.3) pg MCHC (31.6-35.5) g/dL RDW (11.5-14.5) % Plt Count (140-400) K/mcL MPV (9.4-12.4) fL Immature Gran % (0-4) % Seg Neutrophils % % Lymphocytes % % Monocytes % % Eosinophils % % Basophils % % Neutrophils # (1.6-8.9) K/mcL Lymphocytes # (0.6-4.6) K/mcL Monocytes # (0.0-1.3) K/mcL Eosinophils # (0.0-0.6) K/mcL Basophils # (0.0-0.2) K/mcL Immature Plt Fraction (1.1-6.1) % Sodium (136-145) mEq/L Potassium (3.5-5.1) mEq/L Chloride (98-107) mEq/L Carbon Dioxide (23-29) mEq/L BUN (8-23) mg/dL Creatinine (0.60-1.20) mg/dL Est GFR ( Amer) (> 60) Est GFR (Non-Af Amer) (> 60) BUN/Creatinine Ratio (6-26) Glucose (70-105) mg/dL Calculated Osmolality (280-300) Lactic Acid 2.8 H (0.5-2.2) mmol/L Calcium (8.6-10.3) mg/dL Troponin I (< 0.04) ng/mL Urine Color (Yellow) Urine Clarity (Clear) Urine pH (5.0-8.0) pH Units Ur Specific [place] (1.010-1.025) Urine Protein (Neg-Trace) mg/dL Urine Glucose (UA) (Normal) mg/dL Urine Ketones (Negative) mg/dL Urine Blood (Negative) Urine Nitrite (Negative) Urine Bilirubin (Negative) Urine Urobilinogen (Normal) mg/dL Ur Leukocyte Esterase (Negative) Urine Microscopic RBC (0-3) per hpf Urine Microscopic WBC (0-3) per hpf Ur Squamous Epith Cells (None-Few) per lpf Urine Bacteria (None-Few) per hpf Hyaline Casts (None-Few) per lpf Ur Culture Indicated? (NO) - Radiology Data Radiology results reviewed: Yes I reviewed the patient's radiology results. Chest x-ray showed no acute findings - EKG Data EKG #1 EKG attestation: Yes I reviewed and interpreted this EKG. EKG results narrative: EKG shows a bradycardia at 58 bpm, sinus but with PVCs and left bundle branch block, similar to prior dated 11/14/2017 Critical Care Time Critical Care Time: Yes Total Critical Care Time: 15 Attestation: 15 minutes of critical care time was spent independent of separately billable procedures
[2018-01-22 21:54] LABS: Basophils % 0.6 %; Eosinophils # 0.1 K/mcL (0.0-0.6); Eosinophils % 1.9 %; Hematocrit 29.4 % (35.3-44.9); Hemoglobin 10.2 g/dL (11.5-15.4); Immature Granulocytes % 0.3 % (0-4); Immature Platelets 2.8 % (1.1-6.1); Lymphocytes # 0.4 K/mcL (0.6-4.6); Lymphocytes % 11.5 %; Mean Corpuscular HGB Conc 34.7 g/dL (31.6-35.5); Mean Corpuscular Hemoglobin 29.9 pg (28.0-33.3); Mean Corpuscular Volume 86.2 fL (83.0-100.0); Mean Platelet Volume 9.7 fL (9.4-12.4); Monocytes # 0.3 K/mcL (0.0-1.3); Monocytes % 9.3 %; Red Blood Count 3.41 M/mcL (3.82-4.97); Red Cell Distribution Width 14.3 % (11.5-14.5); Segmented Neutrophils % 76.4 %
[2018-01-22 21:55] LABS: Neutrophils # 2.4 K/mcL (1.6-8.9); Platelet Count 83 K/mcL (140-400)
[2018-01-22 22:30] LABS: BUN/Creatinine Ratio 16 (6-26); Blood Urea Nitrogen 14 mg/dL (8-23); Calcium 8.4 mg/dL (8.6-10.3); Carbon Dioxide 30 mEq/L (23-29); Chloride 95 mEq/L (98-107); Glucose 176 mg/dL (70-105); Osmolality,Calculated 283 (280-300); Sodium 134 mEq/L (136-145); eGFR For Non-African Americans > 60 (> 60)
[2018-01-22] MEDS ORDERED: Potassium Chloride Elixir 20 MEQ/15 ML UDC PO ONE (22:33)
[2018-01-22 22:36] LABS: Potassium 2.4 mEq/L (3.5-5.1); Troponin I 0.04 ng/mL (< 0.04)
[2018-01-22] MEDS ORDERED: Aspirin 325 MG TABLET PO ONE (23:23)
[2018-01-22] MEDS ORDERED: Naloxone 0.4 MG/ML INJ IVP PRN (23:47)
[2018-01-23] MEDS ORDERED: Naloxone 0.4 MG/ML INJ IVP PRN (00:23)
[2018-01-23 00:27] LABS: Magnesium 1.3 mg/dL (1.6-2.6)
--- NOTE | 2018-01-23 02:13 | Internal Med History&Physical ---
<Eugenia Harman - Last Filed: 01/23/18 05:44> Date of Encounter: 01/23/18 Time of Encounter: 01:00 Internal Medicine - H&P: HPI Chief complaint: chest pain, dyspnea Plans for Post Hospital Care: Home History of present illness: Ms. Nieto is a 77-year-old female with PMH of dementia, bleeding gastric ulcers , diabetes mellitus, HLD, HTN, and cirrhosis who presented to the emergency department for chest pain with associated shortness of breath. History culled from ED documentation and patient, patients son left hospital prior to my initial encounter. Uncertain of patients reliability as historian d/t dementia. Past Med Surg Social Fam HX - Past Medical History Medical history: cirrhosis, dementia, diabetes, GERD, hyperlipidemia, hypertension, other Additional medical history: stomach ulcers, hiatel hernia, metal plate in head, UTI's Psychiatric history: depression - Past Surgical History Surgical History: hysterectomy Additional surgical history: family states "sx for bleeding ulcer" - Social History Smoking Status: Never smoker Smokeless Tobacco Status: No Alcohol use: none Drug use: none - Family History Sister Adopted: No Family Member Ethnicity: Non- Living Status: Hx Family Cardiac Disorders: Yes (Brain aneurysm) Hx Family Respiratory Disorders: No Hx Family Cancer: No Hx Family GI Disorders: No Hx Family Endocrine Disorder: No Hx Family Neuromuscular Disorders: No Hx Family Neurologic Disorders: No Hx Family HEENT Disorders: No Hx Family Autoimmune Disorders: No Brother Family Member Ethnicity: Non- Living Status: Hx Family Cardiac Disorders: Yes (HF, CAD) Mother Family Member Ethnicity: Non- Living Status: Hx Family Cardiac Disorders: Yes (HF, CAD, HTN) Father Family Member Ethnicity: Non- Living Status: Hx Family GI Disorders: Yes (Bleeding ulcers) Internal Medicine - H&P: Meds Amitriptyline [Elavil] 40 mg PO HS 07/04/16 [History] Escitalopram [Lexapro] 20 mg PO DAILY 07/04/16 [History] Esomeprazole Magnesium [Nexium] 40 mg PO DAILY 07/04/16 [History] LORazepam [Ativan] 1 mg PO QID 07/04/16 [History] Lisinopril [Zestril] 40 mg PO DAILY 07/04/16 [History] Metoprolol [Lopressor] 25 mg PO BID 07/04/16 [History] Oxycodone HCl/Acetaminophen [Percocet 10-325 mg Tablet] 1 tab PO Q8H PRN [History] Risedronate Sodium [Actonel] 35 mg PO QWEEK 07/04/16 [History] Simvastatin [Zocor] 20 mg PO HS 07/04/16 [History] Sucralfate [Carafate] 1 gm PO QIDAC 07/04/16 [History] metFORMIN [Glucophage] 500 mg PO BIDWM 07/04/16 [History] Furosemide [Lasix] 20 mg PO BID #60 tablet 11/16/17 [Rx] Donepezil HCl [Aricept] 10 mg PO DAILY 01/23/18 [History] 3 Allergy/AdvReac Type Severity Reaction Status Date / Time haloperidol Allergy Hallucinati Verified 09/09/17 13:46 ng All Systems PM: A 10-system review of systems was performed and is negative for pertinent findings except as documented above in the HPI. - Constitutional Vitals: Temp Pulse Resp BP Pulse Ox 98.2 F 64 15 143/66 99 01/23/18 00:41 01/23/18 00:41 01/23/18 00:41 01/23/18 00:41 01/23/18 01:00 General appearance: Present: no acute distress, answers questions appropriately Exam: . - Head Head exam: Present: atraumatic, normal inspection, normocephalic - Eye Eye exam: Present: EOMI, normal appearance, PERRL Pupils: Present: PERRL - Neck Neck exam general surgery: Present: normal inspection, supple - Respiratory Respiratory exam: Present: CTAB. Absent: rales, respiratory distress, rhonchi, wheezes - Cardiovascular Cardiovascular exam: Present: RRR, +S1, +S2. Absent: diastolic murmur, systolic murmur - GI/Abdominal GI/Abdominal exam: Present: normal bowel sounds, soft. Absent: distended, tenderness, no peritoneal signs - Extremities Exam Extremities exam: Present: normal inspection, pedal edema (mild, non-pitting), warm. Absent: cyanotic Additional comments: peripheral pulses palpable and symmetric - Neurological Exam Neurological exam: Present: alert, altered, CN II-XII intact, no focal deficits. Absent: oriented X3, facial droop, speech deficit Additional comments: spontaneously moves all extremities - Expanded Neurological Exam Patient oriented to: Absent: time Speech: Absent: garbled, slurred Coma Scale Eye Opening: Spontaneous Coma Scale Motor Response: Obeys Commands Coma Scale Verbal Response: Confused Coma Scale Total: 14 - Psychiatric Psychiatric exam: Absent: agitated, anxious Additional comments: provides logical answers to questions - Skin Skin exam: Present: dry, intact, warm Internal Med - H&P Results - Labs CBC & Chem 7: 01/23/18 03:56 01/23/18 03:56 - Assessment and plan (1) Atypical chest pain Current Visit: Yes Status: Acute Assessment and plan: Chest pain workup for potential ACS ASA 325mg x1 given in ED Initial troponin 0.04, will trend troponins Repeat EKG in the morning Continuous cardiac monitoring (2) Elevated troponin Current Visit: Yes Status: Acute Assessment and plan: Initial troponin 0.04 Trend troponin levels If next troponin is elevated, consider starting heparin gtt (3) Hypokalemia Current Visit: Yes Status: Acute Assessment and plan: Initial potassium 2.4 Received 40 mEq K in ED Continuous cardiac monitoring for arrhythmias Start IV NS with 20 mEq K Recheck with morning labs Morning EKG ordered Hold furosemide for now (4) Elevated lactic acid level Current Visit: Yes Status: Acute Assessment and plan: Initial lactic acid 2.8 Start IV fluids (5) Pancytopenia Current Visit: Yes Status: Acute Assessment and plan: Appears to be chronic, multifactorial Presenting CBC: WBC 2.2, Hgb 10.2, platelets 83 Follow CBC with morning labs No obvious signs of active bleeding noted--continue to monitor (6) Diabetes mellitus Current Visit: Yes Status: Acute Assessment and plan: Hold Metformin Low dose sliding scale insulin Routine accu-cheks Qualifiers: Diabetes mellitus type: type 2 Diabetes mellitus supervisor composing room insulin use: without supervisor composing room use Diabetes mellitus complication status: with unspecified complications Qualified Code(s): E11.8 - Type 2 diabetes mellitus with unspecified complications (7) History of bleeding ulcers Current Visit: No Status: Chronic Assessment and plan: Continue PPI (8) Cirrhosis Current Visit: Yes Status: Chronic Assessment and plan: Will check liver function with morning metabolic panel Avoid hepatotoxic medications, use hepatic dosing Qualifiers: Hepatic cirrhosis type: unspecified hepatic cirrhosis Ascites presence: without ascites Qualified Code(s): K74.60 - Unspecified cirrhosis of liver (9) CHF (congestive heart failure) Current Visit: Yes Status: Chronic Assessment and plan: Echocardiogram October 2017: LVEF 55%, moderate pulmonary HTN Does not appear to be in exacerbation--not fluid overloaded on exam, no rales on auscultation, CXR not suggestive pleural effusion (10) Dementia Current Visit: Yes Status: Chronic Qualifiers: Dementia type: unspecified type Dementia behavioral disturbance: without behavioral disturbance Qualified Code(s): F03.90 - Unspecified dementia without behavioral disturbance (11) HTN (hypertension) Current Visit: No Status: Chronic Qualifiers: Hypertension type: essential hypertension Qualified Code(s): I10 - Essential (primary) hypertension (12) HLD (hyperlipidemia) Current Visit: Yes Status: Chronic Assessment and plan: Continue home simvastatin Qualifiers: Hyperlipidemia type: pure hypercholesterolemia Qualified Code(s): E78.00 - Pure hypercholesterolemia, unspecified; E78.0 - Pure hypercholesterolemia (13) Osteoporosis Current Visit: Yes Status: Chronic Qualifiers: Osteoporosis type: unspecified Presence of current pathological fracture: unspecified Qualified Code(s): M81.0 - Age-related osteoporosis without current pathological fracture (14) DVT prophylaxis Current Visit: Yes Status: Acute Assessment and plan: EPCDs for now - Time Spent With Patient Total time spent is greater than 50% in coordination of care (as documented) at patient's floor/unit and/or counseling patient: <Sarai Pretty - Last Filed: 01/24/18 10:27> Date of Encounter: 01/24/18 Internal Medicine - H&P: HPI History of present illness: Ms. Nieto is a 77 year old female All Systems PM: A 10-system review of systems was performed and is negative for pertinent findings except as documented above in the HPI. - Constitutional Vitals: Temp Pulse Resp BP Pulse Ox 98.2 F 64 15 143/66 99 01/23/18 00:41 01/23/18 00:41 01/23/18 00:41 01/23/18 00:41 01/23/18 01:00 Internal Med - H&P Results - Labs CBC & Chem 7: 01/24/18 00:50 01/24/18 07:04 - Time Spent With Patient Total time spent is greater than 50% in coordination of care (as documented) at patient's floor/unit and/or counseling patient: - Attending Attestation Patient seen and examined. Case discussed with resident. Please see history of present illness above for further details. In short, Ms. Nieto is a 75 year old female with past medical history significant for dementia, hypertension , diabetes, cirrhosis of the liver, gastric ulcer, and chronic back pain who presented to [facility] ED yesterday via EMS with complaints of chest pain and shortness of breath. Patient history limited by patient's underlying dementia and there was no other family member at bedside to provide supportive history. Patient was noted to have a potassium of 2.4 and mildly elevated lactic acid of 2.6 and slightly elevated troponin of 0.04. EKG showed changes consistent with left bundle branch block. ECHO 10/08/15 demonstrated LVEF 55-60%, normal wall motion, mild LV diastolic dysfunction, mild AR, mild MR, mild TR, no pulmonary HTN. Atypical chest pain associated with shortness of breath. History difficult to obtain an patient's baseline dementia. Patient had a mildly elevated troponin and significant hypokalemia of 2.4. EKG shows left bundle branch block pattern with subtle differences in QRS complex when compared to previous EKG. This may be in the setting of hypokalemia. Looking back in about in the records I see no prior history of coronary artery disease documentation, therefore given patient's age, history of diabetes, hypertension and prior hospitalization for acute CHF exacerbation patient may need stress test however, will wait for cardiology assessment. We will continue to trend troponin. Given the patient' s elevated lactic acid. She may have been dry. Continue with fluid support and recheck lactic acid. Replete potassium.
[2018-01-23] MEDS: 0.9 % Sodium Chloride w KCl 20 MEQ/1,000 ML MLS IVC SCH (02:25)
[2018-01-23 04:07] LABS: Basophils % 0.3 %; Immature Granulocytes % 0.3 % (0-4); Segmented Neutrophils % 71.6 %
[2018-01-23 04:09] LABS: Eosinophils % 1.2 %; Hemoglobin 10.2 g/dL (11.5-15.4); Lymphocytes # 0.5 K/mcL (0.6-4.6); Lymphocytes % 15.5 %; Mean Corpuscular Hemoglobin 29.5 pg (28.0-33.3); Mean Corpuscular Volume 86.7 fL (83.0-100.0); Mean Platelet Volume 9.5 fL (9.4-12.4); Monocytes # 0.4 K/mcL (0.0-1.3); Monocytes % 11.1 %; Red Blood Count 3.46 M/mcL (3.82-4.97); Red Cell Distribution Width 14.2 % (11.5-14.5)
[2018-01-23 04:14] LABS: Neutrophils # 2.4 K/mcL (1.6-8.9); Platelet Count 68 K/mcL (140-400)
[2018-01-23 04:33] LABS: Alanine Aminotransferase 14 Units/L (7-52); Albumin 2.9 g/dL (3.5-5.7); Alkaline Phosphatase 112 Units/L (34-104); Aspartate Amino Transferase 25 Units/L (13-39); BUN/Creatinine Ratio 15 (6-26); Bilirubin,Total 1.4 mg/dL (0.3-1.0); Blood Urea Nitrogen 13 mg/dL (8-23); Calcium 8.4 mg/dL (8.6-10.3); Carbon Dioxide 30 mEq/L (23-29); Chloride 98 mEq/L (98-107); Globulin 2.8 g/dL (2.4-3.5); Glucose 111 mg/dL (70-105); Osmolality,Calculated 281 (280-300); Potassium 2.7 mEq/L (3.5-5.1); Sodium 135 mEq/L (136-145); Total Protein 5.7 g/dL (6.4-8.9); eGFR For Non-African Americans > 60 (> 60)
[2018-01-23 04:36] LABS: Troponin I 0.05 ng/mL (< 0.04)
[2018-01-23] MEDS: *HR* Heparin 5,000 UNIT/ML VIAL SQ SCH ×2 (06:53→17:39)
[2018-01-23] MEDS: Sucralfate 1 GM TABLET PO SCH ×4 (07:59→19:52)
[2018-01-23] MEDS: Lisinopril 20 MG TABLET PO SCH (07:59)
[2018-01-23] MEDS: Aspirin Enteric Coated 81 MG Tablet PO SCH (08:00)
--- NOTE | 2018-01-23 09:01 | Event Note ---
Date of Encounter: 01/23/18 Time of Encounter: 08:39 Patient was seen earlier this am by hospitalist, currently the patient denies any pain or discomfort. She is requesting something to eat. Lab work reviewed this am which did show a slight improvement in sodium and slight increase in troponin. EKG reviewed II did speak with cardiology OK to eat this am- will repeat echo. Cardiology to discuss treatment options with son .
--- NOTE | 2018-01-23 09:57 | Cardiology Consult Note ---
Date of Encounter: 01/23/18 Time of Encounter: 09:52 Assessment and Plan (1) Chest pain Current Visit: Yes Status: Acute Atypical chest pain after drinking large glass of water. Now pain free. Likely GI symptoms. Note mild troponin 0.04, 0.05. Not diagnostic for ACS. Noted to have mild troponin in the setting of PNA earlier this year. Known LBBB, EKG unchanged. TTE pending. Recent TTE 10/2017- EF 55%, RICCARDO, moderate MR, mild to mod TR, moderate pulmonary HTN. I discussed plan of care with patient. She prefers conservative therapy and does not wish to undergo any invasive testing. SHe is also not a good candidate in the setting of thrombocytopenia. Continue medical therapy. Qualifiers: Chest pain type: precordial pain Qualified Code(s): R07.2 - Precordial pain (2) Elevated troponin Current Visit: Yes Status: Acute (3) Hypokalemia Current Visit: Yes Status: Acute Replacement given by primary team. Discussion w patient/family: The assessment and plan as outlined above was discussed with the patient and/or family members who expressed understanding and agreement. All questions were answered. Thank you for involving us in the care of your patient. Please call with any questions. History of Present Illness Consult date: 01/23/18 Requesting physician: Eugenia Harman Consult reason: Chest pain Chief complaint: Chest pain History of present illness: Ms. Nieto is a 77 year old female with past medical history significant for dementia, bleeding ulcers, DM type II, HTN, HLD, cirrhosis, and LBBB. Her son brought her to the ED after she c/o chest pain. She states that she took her medications with a big drink of water. She drank more water than she meant to and developed a knot like pressure in her chest that would not go away. Chest pain went away after a hour on its own and was relieved by the time she arrived to the ED. Denies SOB or palpitations. Denies orthopnea, PND, or edema. She was in her usual state of health prior to the event. Cardiology consulted for evaluation due to troponin elevation at 0.05. Past Med Surg Social Fam HX - Past Medical History Attestation: Yes The following information was validated with the patient. Medical history: cirrhosis, dementia, diabetes, GERD, hyperlipidemia, hypertension, other Additional medical history: stomach ulcers, hiatel hernia, metal plate in head, UTI's Psychiatric history: depression - Past Surgical History Surgical History: hysterectomy Additional surgical history: family states "sx for bleeding ulcer" - Social History Smoking Status: Never smoker Smokeless Tobacco Status: No Alcohol use: none Drug use: none - Family History Sister Adopted: No Family Member Ethnicity: Non- Living Status: Hx Family Cardiac Disorders: Yes (Brain aneurysm) Hx Family Respiratory Disorders: No Hx Family Cancer: No Hx Family GI Disorders: No Hx Family Endocrine Disorder: No Hx Family Neuromuscular Disorders: No Hx Family Neurologic Disorders: No Hx Family HEENT Disorders: No Hx Family Autoimmune Disorders: No Brother Family Member Ethnicity: Non- Living Status: Hx Family Cardiac Disorders: Yes (HF, CAD) Mother Family Member Ethnicity: Non- Living Status: Hx Family Cardiac Disorders: Yes (HF, CAD, HTN) Father Family Member Ethnicity: Non- Living Status: Hx Family GI Disorders: Yes (Bleeding ulcers) Medications and Allergies Amitriptyline [Elavil] 40 mg PO HS 07/04/16 [History] Donepezil HCl [Aricept] 5 mg PO DAILY 07/04/16 [History] Escitalopram [Lexapro] 20 mg PO DAILY 07/04/16 [History] Esomeprazole Magnesium [Nexium] 40 mg PO DAILY 07/04/16 [History] LORazepam [Ativan] 1 mg PO QID 07/04/16 [History] Lisinopril [Zestril] 40 mg PO DAILY 07/04/16 [History] Metoprolol [Lopressor] 25 mg PO BID 07/04/16 [History] Oxycodone HCl/Acetaminophen [Percocet 10-325 mg Tablet] 1 tab PO Q8H PRN [History] Risedronate Sodium [Actonel] 35 mg PO QWEEK 07/04/16 [History] Simvastatin [Zocor] 20 mg PO HS 07/04/16 [History] Sucralfate [Carafate] 1 gm PO QIDAC 07/04/16 [History] metFORMIN [Glucophage] 500 mg PO BIDWM 07/04/16 [History] Amoxicillin/Clavulanate [Augmentin] 875 mg PO BIDWM #14 tablet 11/16/17 [Rx] Furosemide [Lasix] 20 mg IVP BIDDIURETIC #60 tab 11/16/17 [Rx] Furosemide [Lasix] 20 mg PO BID #60 tablet 11/16/17 [Rx] 3 Allergy/AdvReac Type Severity Reaction Status Date / Time haloperidol Allergy Hallucinati Verified 09/09/17 13:46 ng All Systems Review: The remainder of the systems were reviewed and are negative Physical Examination Vital Signs, Last 4 Hours Temp Pulse Resp BP Pulse Ox 01/23/18 06:28 98.7 F 59 14 109/67 98 General: Conversant, No Apparent Distress HEENT: Atraumatic, Normocephaly, Mucus Membranes Moist Neck: No JVD, Normal carotid pulses Cardiac: Reg Rate and Rhythm, Normal S1 and S2, No Murmur Lungs: Normal Breath Sounds, No Wheeze, Rales, Rhonchi Neuro: Alert and responsive, No focal deficits noted Abdomen: Soft, Non-Tender Skin: No rashes noted on visualized skin Musculoskeletal: No Chest Wall Tenderness Extremities: No Clubbing, No Cyanosis, No Edema, Normal Pulses Results 01/23/18 03:56 01/23/18 03:56 Lab Results 01/23/18 01/23/18 03:56 03:56 WBC 3.4 L Hgb 10.2 L Hct 30.0 L Plt Count 68 L Sodium 135 L Potassium 2.7 L Chloride 98 Carbon Dioxide 30 H BUN 13 Creatinine 0.87 Glucose 111 H Calcium 8.4 L Total Bilirubin 1.4 H AST 25 ALT 14 Alkaline Phosphatase 112 H Troponin I 0.05 H* - Imaging and Cardiology Echo: report reviewed - EKG Interpretation EKG results cardiology: personally reviewed Consult Discharge Plan - Plan Referrals: Sy Beaver DO [Primary Care Provider] -
[2018-01-23] MEDS: *HR* LORazepam 1 MG TABLET PO SCH ×3 (12:37→19:52)
[2018-01-23] MEDS ORDERED: Potassium Chloride 20 MEQ, Lidocaine 1% 2 ML in D5% in Water 250 ML IVPB ONE (18:37)
[2018-01-23] MEDS ORDERED: Potassium Chloride Elixir 20 MEQ/15 ML UDC PO ONE (21:45)
[2018-01-24 01:24] LABS: Immature Granulocytes % 0.6 % (0-4)
[2018-01-24 01:25] LABS: Basophils % 0.6 %
[2018-01-24 01:26] LABS: Eosinophils % 2.3 %; Hemoglobin 9.4 g/dL (11.5-15.4); Lymphocytes # 0.4 K/mcL (0.6-4.6); Lymphocytes % 24.3 %; Mean Corpuscular HGB Conc 33.6 g/dL (31.6-35.5); Mean Corpuscular Hemoglobin 29.7 pg (28.0-33.3); Mean Corpuscular Volume 88.6 fL (83.0-100.0); Mean Platelet Volume 10.7 fL (9.4-12.4); Monocytes # 0.2 K/mcL (0.0-1.3); Neutrophils # 1.1 K/mcL (1.6-8.9); Red Blood Count 3.16 M/mcL (3.82-4.97); Red Cell Distribution Width 14.5 % (11.5-14.5); Segmented Neutrophils % 59.2 %
[2018-01-24 01:36] LABS: Platelet Count 56 K/mcL (140-400)
[2018-01-24 01:54] LABS: Alanine Aminotransferase 13 Units/L (7-52); Albumin 2.8 g/dL (3.5-5.7); Albumin/Globulin Ratio 1.1 (1.1-2.2); Alkaline Phosphatase 123 Units/L (34-104); Aspartate Amino Transferase 24 Units/L (13-39); BUN/Creatinine Ratio 13 (6-26); Blood Urea Nitrogen 12 mg/dL (8-23); Calcium 8.4 mg/dL (8.6-10.3); Carbon Dioxide 32 mEq/L (23-29); Chloride 100 mEq/L (98-107); Globulin 2.6 g/dL (2.4-3.5); Glucose 106 mg/dL (70-105); Osmolality,Calculated 280 (280-300); Sodium 135 mEq/L (136-145); Total Protein 5.4 g/dL (6.4-8.9); eGFR For Non-African Americans 58 (> 60)
[2018-01-24 02:39] LABS: Platelet Estimate Decreased (Normal)
[2018-01-24] MEDS: 0.9 % Sodium Chloride w KCl 20 MEQ/1,000 ML MLS IVC SCH (04:43)
[2018-01-24] MEDS: *HR* Heparin 5,000 UNIT/ML VIAL SQ SCH ×2 (04:44→10:27)
[2018-01-24 08:04] LABS: Alanine Aminotransferase 12 Units/L (7-52); Albumin 2.6 g/dL (3.5-5.7); Alkaline Phosphatase 112 Units/L (34-104); Aspartate Amino Transferase 23 Units/L (13-39); BUN/Creatinine Ratio 13 (6-26); Bilirubin,Total 1.1 mg/dL (0.3-1.0); Blood Urea Nitrogen 12 mg/dL (8-23); Calcium 8.4 mg/dL (8.6-10.3); Carbon Dioxide 31 mEq/L (23-29); Chloride 101 mEq/L (98-107); Globulin 2.7 g/dL (2.4-3.5); Glucose 127 mg/dL (70-105); Osmolality,Calculated 285 (280-300); Potassium 3.1 mEq/L (3.5-5.1); Sodium 137 mEq/L (136-145); Total Protein 5.3 g/dL (6.4-8.9); eGFR For Non-African Americans > 60 (> 60)
[2018-01-24] MEDS: Sucralfate 1 GM TABLET PO SCH ×4 (08:38→21:07)
[2018-01-24] MEDS: *HR* LORazepam 1 MG TABLET PO SCH ×4 (08:38→21:07)
[2018-01-24] MEDS: Aspirin Enteric Coated 81 MG Tablet PO SCH (08:38)
[2018-01-24] MEDS: Lisinopril 20 MG TABLET PO SCH (08:38)
--- NOTE | 2018-01-24 10:32 | Cardiology Progress Note ---
Date of Encounter: 01/24/18 Time of Encounter: 09:35 Assessment and Plan (1) Chest pain Current Visit: Yes Status: Acute Atypical chest pain after drinking large glass of water. Now pain free. Likely GI symptoms. Note mild troponin 0.04, 0.05. Not diagnostic for ACS. Noted to have mild troponin in the setting of PNA earlier this year. Known LBBB, EKG unchanged. TTE completed yesterday reviewed with patient, EF 50-55%. No WMA. Recent TTE 10/2017- EF 55%, RICCARDO, moderate MR, mild to mod TR, moderate pulmonary HTN. No change. I discussed plan of care with patient. She prefers conservative therapy and does not wish to undergo any invasive testing. She is also not a good candidate in the setting of thrombocytopenia. Continue medical therapy. Asa, statin, and bb. Cardiology will sign off. Out-pt f/u. Call with questions. Qualifiers: Chest pain type: precordial pain Qualified Code(s): R07.2 - Precordial pain (2) Elevated troponin Current Visit: Yes Status: Acute See above. (3) Hypokalemia Current Visit: Yes Status: Acute Replacement given by primary team. Discussion w patient/family: The assessment and plan as outlined above was discussed with the patient and/or family members who expressed understanding and agreement. All questions were answered. Thank you for involving us in the care of your patient. Please call with any questions. Subjective Principal diagnosis: chest pain Interval history: Ms. Nieto denies recurrent chest pain. She is resting comfortably in bed. Objective Vital Signs, Last 4 Hours Pulse Resp BP Pulse Ox 01/24/18 07:28 60 15 102/61 91 General: Conversant, No Apparent Distress HEENT: Atraumatic, Normocephaly, Mucus Membranes Moist Neck: No JVD, Normal carotid pulses Cardiac: Reg Rate and Rhythm, Normal S1 and S2, No Murmur Lungs: Normal Breath Sounds, No Wheeze, Rales, Rhonchi Neuro: Alert and responsive, No focal deficits noted Abdomen: Soft, Non-Tender Skin: No rashes noted on visualized skin Musculoskeletal: No Chest Wall Tenderness Extremities: No Clubbing, No Cyanosis, No Edema, Normal Pulses Results 01/24/18 00:50 01/24/18 07:04 Lab Results 01/23/18 01/24/1818 16:55 00:50 00:50 WBC 1.8 L Hgb 9.4 L Hct 28.0 L Plt Count 56 L Sodium 135 L Potassium 2.8 L TNP Chloride 100 Carbon Dioxide 32 H BUN 12 Creatinine 0.93 Glucose 106 H Calcium 8.4 L Total Bilirubin 1.0 AST 24 ALT 13 Alkaline Phosphatase 123 H 01/24/18 01/24/18 00:50 07:04 WBC Hgb Hct Plt Count Sodium 137 Potassium 3.5 3.1 L Chloride 101 Carbon Dioxide 31 H BUN 12 Creatinine 0.89 Glucose 127 H Calcium 8.4 L Total Bilirubin 1.1 H AST 23 ALT 12 Alkaline Phosphatase 112 H - Imaging and Cardiology Echo: report reviewed - EKG Interpretation EKG results cardiology: personally reviewed Consult Discharge Plan - Plan Referrals: Sy Beaver DO [Primary Care Provider] - (Requested a follow up appointment in 7-10 days. )
--- NOTE | 2018-01-24 11:25 | Internal Med Progress Note ---
Hospitalist Progress Note - Encounter Date of Encounter: 01/24/18 Time of Encounter: 11:23 - Subjective Interval History: Patient seen and examined at bedside today. No acute changes overnight. Denies any current chest pain. Hypokalemia persists. Neutropenia chronic and persistent. - Exam Vitals: Temp Pulse Resp BP Pulse Ox 98.0 F 84 15 113/63 94 01/24/18 10:46 01/24/18 10:46 01/24/18 10:46 01/24/18 10:46 01/24/18 10:46 Exam: PHYSICAL EXAMINATION: GENERAL: The patient is an ill-appearing elderly female in no apparent distress who is alert to self only. HEENT: Head is normocephalic and atraumatic. Extraocular muscles are intact. Pupils are equal, round, and reactive to light and accommodation. NECK: Supple. No carotid bruits. No lymphadenopathy or thyromegaly. LUNGS: Clear to auscultation B/L AP and L. HEART: Regular rate and rhythm S1, S2 without murmur. ABDOMEN: Soft, nontender, and nondistended. Positive bowel sounds. No hepatosplenomegaly was noted. EXTREMITIES: Without any cyanosis, clubbing, rash, lesions or edema. NEUROLOGIC: Cranial nerves II through XII are grossly intact. PSYCHIATRIC: Anxious SKIN: No ulceration or induration present. - Assessment and Plan (1) Chest pain Current Visit: Yes Status: Acute Assessment and Plan: Atypical Initial troponin 0.04, not diagnostic of ACS Recent TTE 10/2017 EF 55%, CKD, moderate MR, [id number] TR, moderate pulmonary HTN, repeat TTE 02/09 without changes Cardiology seeing in consultation, discussed POC including further workup and evaluation; patient prefers conservative management at this time and does not wish to undergo any further invasive testing. Continue ASA, statin, BP (2) Diabetes mellitus Current Visit: Yes Status: Acute Assessment and Plan: Continue holding Metformin Routine accu-cheks (3) Elevated lactic acid level Current Visit: Yes Status: Resolved (4) Elevated troponin Current Visit: Yes Status: Acute Assessment and Plan: As above (5) Hypokalemia Current Visit: Yes Status: Acute Assessment and Plan: Persistent hypokalemia Serum potassium 3.1 this morning Continue holding furosemide Continuous cardiac monitoring Replete as necessary (6) Pancytopenia Current Visit: Yes Status: Acute Assessment and Plan: Chronic pancytopenia, multifactorial Presenting CBC: WBC 1.8, Hgb 19.4, hematocrit 28 Follow CBC with morning labs No obvious signs of active bleeding noted--continue to monitor (7) CHF (congestive heart failure) Current Visit: Yes Status: Chronic Assessment and Plan: Per history, not in acute exacerbation; CHF with moderate pulmonary HTN Patient is not fluid overloaded on examination, no rales noted to auscultation, CXR with chronic pulmonary vascular congestion LVEF 50-55%. Normal LV chamber size, wall thickness and systolic function. Normal right ventricular structure and function. Moderately dilated left atrium. Mildly dilated right atrium. (8) Cirrhosis Current Visit: Yes Status: Chronic Assessment and Plan: LFTs unremarkable, WNL Continue to avoid hepatotoxins, cirrhosis per history (9) Dementia Current Visit: Yes Status: Chronic Assessment and Plan: Per history, continue Aricept (10) HLD (hyperlipidemia) Current Visit: Yes Status: Chronic Assessment and Plan: Continue simvastatin (11) Osteoporosis Current Visit: Yes Status: Chronic (12) HTN (hypertension) Current Visit: No Status: Chronic Assessment and Plan: Per history, stable, continue anti-HTN medications (13) DVT prophylaxis Current Visit: Yes Status: Acute DVT Prophylaxis: SC heparin - Time Spent with Patient Total time spent is greater than 50% in coordination of care (as documented) at patient's floor/unit and/or counseling patient: less than 15 minutes Plan of Care Discussed with: patient Internal Medicine: Result - Labs CBC & Chem 7: 01/24/18 00:50 01/24/18 07:04 Labs: Short CBC 01/24/18 Range/Units 00:50 WBC 1.8 L (4.3-11.1) K/mcL Hgb 9.4 L (11.5-15.4) g/dL Hct 28.0 L (35.3-44.9) % Plt Count 56 L (140-400) K/mcL Neutrophils # 1.1 L (1.6-8.9) K/mcL BMP 01/23/18 01/24/18 01/24/18 16:55 00:50 00:50 Sodium 135 L Potassium 2.8 L TNP 3.5 Chloride 100 Carbon Dioxide 32 H BUN 12 Creatinine 0.93 Glucose 106 H Calcium 8.4 L 01/24/18 07:04 Sodium 137 Potassium 3.1 L Chloride 101 Carbon Dioxide 31 H BUN 12 Creatinine 0.89 Glucose 127 H Calcium 8.4 L Liver Function 01/24/18 01/24/18 Range/Units 00:50 07:04 Total Bilirubin 1.0 1.1 H (0.3-1.0) mg/dL AST 24 23 (13-39) Units/L ALT 13 12 (7-52) Units/L Alkaline Phosphatase 123 H 112 H (34-104) Units/L Albumin 2.8 L 2.6 L (3.5-5.7) g/dL Consult Discharge Plan - Plan Referrals: Sy Beaver DO [Primary Care Provider] - 02/02/18 9:30 am () (1) Chest pain Qualifiers: Chest pain type: precordial pain Qualified Code(s): R07.2 - Precordial pain (2) Diabetes mellitus Qualifiers: Diabetes mellitus type: type 2 Diabetes mellitus residential insulin use: without residential use Diabetes mellitus complication status: with unspecified complications Qualified Code(s): E11.8 - Type 2 diabetes mellitus with unspecified complications (8) Cirrhosis Qualifiers: Hepatic cirrhosis type: unspecified hepatic cirrhosis Ascites presence: without ascites Qualified Code(s): K74.60 - Unspecified cirrhosis of liver (9) Dementia Qualifiers: Dementia type: unspecified type Dementia behavioral disturbance: without behavioral disturbance Qualified Code(s): F03.90 - Unspecified dementia without behavioral disturbance (10) HLD (hyperlipidemia) Qualifiers: Hyperlipidemia type: pure hypercholesterolemia Qualified Code(s): E78.00 - Pure hypercholesterolemia, unspecified; E78.0 - Pure hypercholesterolemia (11) Osteoporosis Qualifiers: Osteoporosis type: unspecified Presence of current pathological fracture: unspecified Qualified Code(s): M81.0 - Age-related osteoporosis without current pathological fracture (12) HTN (hypertension) Qualifiers: Hypertension type: essential hypertension Qualified Code(s): I10 - Essential (primary) hypertension
[2018-01-25 04:40] LABS: Basophils % 0.4 %
[2018-01-25 04:41] LABS: Eosinophils # 0.1 K/mcL (0.0-0.6); Eosinophils % 2.9 %; Hematocrit 29.1 % (35.3-44.9); Hemoglobin 9.8 g/dL (11.5-15.4); Immature Granulocytes % 0.8 % (0-4); Immature Platelets 3.6 % (1.1-6.1); Lymphocytes # 0.5 K/mcL (0.6-4.6); Lymphocytes % 20.7 %; Mean Corpuscular HGB Conc 33.7 g/dL (31.6-35.5); Mean Corpuscular Hemoglobin 29.9 pg (28.0-33.3); Mean Corpuscular Volume 88.7 fL (83.0-100.0); Mean Platelet Volume 9.6 fL (9.4-12.4); Monocytes # 0.3 K/mcL (0.0-1.3); Monocytes % 11.2 %; Red Blood Count 3.28 M/mcL (3.82-4.97); Red Cell Distribution Width 14.7 % (11.5-14.5)
[2018-01-25 04:56] LABS: Neutrophils # 1.5 K/mcL (1.6-8.9); Platelet Count 77 K/mcL (140-400)
[2018-01-25 05:01] LABS: BUN/Creatinine Ratio 14 (6-26); Blood Urea Nitrogen 13 mg/dL (8-23); Calcium 8.5 mg/dL (8.6-10.3); Carbon Dioxide 32 mEq/L (23-29); Chloride 100 mEq/L (98-107); Glucose 129 mg/dL (70-105); Osmolality,Calculated 282 (280-300); Sodium 135 mEq/L (136-145); eGFR For Non-African Americans 57 (> 60)
[2018-01-25] MEDS: *HR* Heparin 5,000 UNIT/ML VIAL SQ SCH (05:33)
[2018-01-25 06:48] VITALS: BP 129/74
[2018-01-25] MEDS: Sucralfate 1 GM TABLET PO SCH (08:35)
[2018-01-25] MEDS: Lisinopril 20 MG TABLET PO SCH (08:35)
[2018-01-25] MEDS: *HR* LORazepam 1 MG TABLET PO SCH (08:35)
[2018-01-25] MEDS: Aspirin Enteric Coated 81 MG Tablet PO SCH (08:35)
--- NOTE | 2018-01-25 09:32 | Internal Med Progress Note ---
Hospitalist Progress Note - Encounter Date of Encounter: 01/25/18 Time of Encounter: 09:29 - Subjective Interval History: Patient seen and examined at bedside today. No acute changes overnight. Denies any current chest pain, abdominal pain or shortness of breath. - Exam Vitals: Temp Pulse Resp BP Pulse Ox 97.9 F 57 18 129/74 95 01/25/18 06:45 01/25/18 06:45 01/25/18 06:45 01/25/18 06:45 01/25/18 08:45 Exam: PHYSICAL EXAMINATION: GENERAL: The patient is an ill-appearing elderly female in no apparent distress who is alert to self only. HEENT: Head is normocephalic and atraumatic. Extraocular muscles are intact. Pupils are equal, round, and reactive to light and accommodation. NECK: Supple. No carotid bruits. No lymphadenopathy or thyromegaly. LUNGS: Clear to auscultation B/L AP and L. HEART: Regular rate and rhythm S1, S2 without murmur. ABDOMEN: Soft, nontender, and nondistended. Positive bowel sounds. No hepatosplenomegaly was noted. EXTREMITIES: Without any cyanosis, clubbing, rash, lesions or edema. NEUROLOGIC: Cranial nerves II through XII are grossly intact. PSYCHIATRIC: Anxiety persists SKIN: No ulceration or induration present. - Assessment and Plan (1) Chest pain Current Visit: Yes Status: Acute Assessment and Plan: Atypical Initial troponin 0.04, not diagnostic of ACS Recent TTE 10/2017 EF 55%, CKD, moderate MR, [id number] TR, moderate pulmonary HTN, repeat TTE 02/09 without changes Cardiology seeing in consultation, discussed POC including further workup and evaluation; patient prefers conservative management at this time and does not wish to undergo any further invasive testing. Continue ASA, statin, BB 01/25--Continues to deny chest pain or dyspnea. W/U not diagnostid of ACS. Continue conservative management with ASA, Statin and BB. Discuss d/c with Son this afternoon. (2) Diabetes mellitus Current Visit: Yes Status: Acute Assessment and Plan: Continue holding Metformin Routine accu-cheks (3) Elevated lactic acid level Current Visit: Yes Status: Resolved (4) Elevated troponin Current Visit: Yes Status: Acute Assessment and Plan: As above (5) Hypokalemia Current Visit: Yes Status: Resolved (6) Pancytopenia Current Visit: Yes Status: Acute Assessment and Plan: Persistent chronic pancytopenia, multifactorial Presenting CBC: WBC 2.4, Hgb 9.8 Follow CBC with morning labs No obvious signs of active bleeding noted--continue to monitor (7) CHF (congestive heart failure) Current Visit: Yes Status: Chronic Assessment and Plan: Per history, not in acute exacerbation; CHF with moderate pulmonary HTN Patient is not fluid overloaded on examination, no rales noted to auscultation, CXR with chronic pulmonary vascular congestion LVEF 50-55%. Normal LV chamber size, wall thickness and systolic function. Normal right ventricular structure and function. Moderately dilated left atrium. Mildly dilated right atrium. (8) Cirrhosis Current Visit: Yes Status: Chronic Assessment and Plan: LFTs WNL Continue to avoid hepatotoxins, cirrhosis per history (9) Dementia Current Visit: Yes Status: Chronic Assessment and Plan: Per history, continue Aricept appears more confused today d/w son regarding d/c this afternoon (10) HLD (hyperlipidemia) Current Visit: Yes Status: Chronic Assessment and Plan: Continue simvastatin (11) Osteoporosis Current Visit: Yes Status: Chronic (12) HTN (hypertension) Current Visit: No Status: Chronic Assessment and Plan: Per history, remains stable, continue anti-HTN medications (13) DVT prophylaxis Current Visit: Yes Status: Acute DVT Prophylaxis: Continue SC heparin - Time Spent with Patient Total time spent is greater than 50% in coordination of care (as documented) at patient's floor/unit and/or counseling patient: less than 15 minutes Plan of Care Discussed with: patient Internal Medicine: Result - Labs CBC & Chem 7: 01/25/18 04:16 01/25/18 04:16 Labs: Short CBC 01/25/18 Range/Units 04:16 WBC 2.4 L (4.3-11.1) K/mcL Hgb 9.8 L (11.5-15.4) g/dL Hct 29.1 L (35.3-44.9) % Plt Count 77 L (140-400) K/mcL Neutrophils # 1.5 L (1.6-8.9) K/mcL BMP 01/24/18 01/25/18 17:12 04:16 Sodium 135 L Potassium 3.5 4.0 Chloride 100 Carbon Dioxide 32 H BUN 13 Creatinine 0.95 Glucose 129 H Calcium 8.5 L Consult Discharge Plan - Plan Referrals: Sy Beaver DO [Primary Care Provider] - 02/02/18 9:30 am () (1) Chest pain Qualifiers: Chest pain type: precordial pain Qualified Code(s): R07.2 - Precordial pain (2) Diabetes mellitus Qualifiers: Diabetes mellitus type: type 2 Diabetes mellitus intermediate insulin use: without intermediate use Diabetes mellitus complication status: with unspecified complications Qualified Code(s): E11.8 - Type 2 diabetes mellitus with unspecified complications (8) Cirrhosis Qualifiers: Hepatic cirrhosis type: unspecified hepatic cirrhosis Ascites presence: without ascites Qualified Code(s): K74.60 - Unspecified cirrhosis of liver (9) Dementia Qualifiers: Dementia type: unspecified type Dementia behavioral disturbance: without behavioral disturbance Qualified Code(s): F03.90 - Unspecified dementia without behavioral disturbance (10) HLD (hyperlipidemia) Qualifiers: Hyperlipidemia type: pure hypercholesterolemia Qualified Code(s): E78.00 - Pure hypercholesterolemia, unspecified; E78.0 - Pure hypercholesterolemia (11) Osteoporosis Qualifiers: Osteoporosis type: unspecified Presence of current pathological fracture: unspecified Qualified Code(s): M81.0 - Age-related osteoporosis without current pathological fracture (12) HTN (hypertension) Qualifiers: Hypertension type: essential hypertension Qualified Code(s): I10 - Essential (primary) hypertension
--- NOTE | 2018-01-25 09:46 | Discharge Summary ---
- NOTES TO OUTPATIENT PROVIDER Notes to Outpatient Provider: pancytopenic; chronic. Please f/u outpatient. May benefit from oncology consult in outpatient setting. Orders not resulted at time of discharge: Pending orders 01/26/18 04:00 Basic Metabolic Panel AM 0400 Complete Blood Count [HEME] AM 0400 01/27/18 04:00 Basic Metabolic Panel AM 0400 Complete Blood Count [HEME] AM 0400 Date of Encounter: 01/25/18 Time of Encounter: 09:44 - Discharge Diagnosis (1) Chest pain Priority: Primary Status: Acute Assessment and Plan: Atypical Initial troponin 0.04, not diagnostic of ACS Recent TTE 10/2017 EF 55%, CKD, moderate MR, [id number] TR, moderate pulmonary HTN, repeat TTE 02/09 without changes Cardiology seeing in consultation, discussed POC including further workup and evaluation; patient prefers conservative management at this time and does not wish to undergo any further invasive testing. Continue ASA, statin, BB 01/25--Continues to deny chest pain or dyspnea. W/U not diagnostid of ACS. Continue conservative management with ASA, Statin and BB. Discuss d/c with Son this afternoon. Qualifiers: Chest pain type: precordial pain Qualified Code(s): R07.2 - Precordial pain (2) Diabetes mellitus Priority: Secondary Status: Acute Assessment and Plan: Continue holding Metformin Routine accu-cheks Qualifiers: Diabetes mellitus type: type 2 Diabetes mellitus composition instructor insulin use: without composition instructor use Diabetes mellitus complication status: with unspecified complications Qualified Code(s): E11.8 - Type 2 diabetes mellitus with unspecified complications (3) Elevated lactic acid level Priority: Secondary Status: Resolved Assessment and Plan: Initial lactic acid 2.8 Start IV fluids (4) Elevated troponin Priority: Secondary Status: Acute Assessment and Plan: As above (5) Hypokalemia Priority: Secondary Status: Resolved Assessment and Plan: Persistent hypokalemia Serum potassium 3.1 this morning Continue holding furosemide Continuous cardiac monitoring Replete as necessary (6) Pancytopenia Priority: Secondary Status: Acute Assessment and Plan: Persistent chronic pancytopenia, multifactorial Presenting CBC: WBC 2.4, Hgb 9.8 Follow CBC with morning labs No obvious signs of active bleeding noted--continue to monitor (7) Cirrhosis Priority: Secondary Status: Chronic Assessment and Plan: LFTs WNL Continue to avoid hepatotoxins, cirrhosis per history Qualifiers: Hepatic cirrhosis type: unspecified hepatic cirrhosis Ascites presence: without ascites Qualified Code(s): K74.60 - Unspecified cirrhosis of liver (8) Dementia Priority: Secondary Status: Chronic Assessment and Plan: Per history, continue Aricept appears more confused today d/w son regarding d/c this afternoon Qualifiers: Dementia type: unspecified type Dementia behavioral disturbance: without behavioral disturbance Qualified Code(s): F03.90 - Unspecified dementia without behavioral disturbance (9) HLD (hyperlipidemia) Priority: Secondary Status: Chronic Assessment and Plan: Continue simvastatin Qualifiers: Hyperlipidemia type: pure hypercholesterolemia Qualified Code(s): E78.00 - Pure hypercholesterolemia, unspecified; E78.0 - Pure hypercholesterolemia (10) Osteoporosis Priority: Secondary Status: Chronic Qualifiers: Osteoporosis type: unspecified Presence of current pathological fracture: unspecified Qualified Code(s): M81.0 - Age-related osteoporosis without current pathological fracture (11) HTN (hypertension) Priority: Secondary Status: Chronic Qualifiers: Hypertension type: essential hypertension Qualified Code(s): I10 - Essential (primary) hypertension (12) CHF (congestive heart failure) Priority: Secondary Status: Acute Assessment and Plan: Per history, not in acute exacerbation; CHF with moderate pulmonary HTN; UNDETERMINED HF TYPE Patient is not fluid overloaded on examination, no rales noted to auscultation, CXR with chronic pulmonary vascular congestion LVEF 50-55%. Normal LV chamber size, wall thickness and systolic function. Normal right ventricular structure and function. Moderately dilated left atrium. Mildly dilated right atrium. Qualifiers: Heart failure type: unspecified Heart failure chronicity: chronic Qualified Code(s): I50.9 - Heart failure, unspecified (13) DVT prophylaxis Priority: Secondary Status: Acute Hospital course: Ms. Nieto is a 77 year old female see assessment and plan for hospital course Discharge discussed with: patient, family, nurse, social work, case management - Time Spent with Patient Total time spent providing and/or coordinating discharge services: Less than 30 minutes - Discharge Medications Home Medications: Amitriptyline [Elavil] 40 mg PO HS 07/04/16 [History] Escitalopram [Lexapro] 20 mg PO DAILY 07/04/16 [History] Esomeprazole Magnesium [Nexium] 40 mg PO DAILY 07/04/16 [History] LORazepam [Ativan] 1 mg PO QID 07/04/16 [History] Lisinopril [Zestril] 40 mg PO DAILY 07/04/16 [History] Metoprolol [Lopressor] 25 mg PO BID 07/04/16 [History] Oxycodone HCl/Acetaminophen [Percocet 10-325 mg Tablet] 1 tab PO Q8H PRN [History] Risedronate Sodium [Actonel] 35 mg PO QWEEK 07/04/16 [History] Simvastatin [Zocor] 20 mg PO HS 07/04/16 [History] Sucralfate [Carafate] 1 gm PO QIDAC 07/04/16 [History] metFORMIN [Glucophage] 500 mg PO BIDWM 07/04/16 [History] Furosemide [Lasix] 20 mg PO BID #60 tablet 11/16/17 [Rx] Donepezil HCl [Aricept] 10 mg PO DAILY 01/23/18 [History] Aspirin Enteric Coated [Aspirin EC] 81 mg PO DAILY tablet. 01/25/18 [Rx] Allergies/Adverse Reactions: 3 Allergy/AdvReac Type Severity Reaction Status Date / Time haloperidol Allergy Hallucinati Verified 09/09/17 13:46 ng Date of admission: 01/23/18 16:44 Primary care physician: Brayan Beaver DO Discharging clinician: Mayur Mora Anticipated date of discharge: 01/25/18 - Constitutional Vitals: Temp Pulse Resp BP Pulse Ox 97.9 F 57 18 129/74 95 01/25/18 06:45 01/25/18 06:45 01/25/18 06:45 01/25/18 06:45 01/25/18 08:45 General appearance: Present: no acute distress, answers questions appropriately Exam: PHYSICAL EXAMINATION: GENERAL: The patient is an ill-appearing elderly female in no apparent distress who is alert to self only. HEENT: Head is normocephalic and atraumatic. Extraocular muscles are intact. Pupils are equal, round, and reactive to light and accommodation. NECK: Supple. No carotid bruits. No lymphadenopathy or thyromegaly. LUNGS: Clear to auscultation B/L AP and L. HEART: Regular rate and rhythm S1, S2 without murmur. ABDOMEN: Soft, nontender, and nondistended. Positive bowel sounds. No hepatosplenomegaly was noted. EXTREMITIES: Without any cyanosis, clubbing, rash, lesions or edema. NEUROLOGIC: Cranial nerves II through XII are grossly intact. PSYCHIATRIC: Anxiety persists SKIN: No ulceration or induration present. - Patient Status Disposition: Home, Self-Care Condition: Good Functional capacity at discharge: uses cane/walker Overall status at discharge: patient is progressing back to baseline - Discharge Instructions Instructions: Chest Pain (DC), Diabetes Mellitus Type 2 in Adults (DC), Heart Failure (DC) Follow Up With: Sy Beaver DO [Primary Care Provider] - 02/02/18 9:30 am () Forms: ED Satisfaction Letter - Diet and Activity Activity: increase activity as tolerated, resume usual activities as tolerated Diet: diabetic diet, low fat, low cholesterol, low salt diet
--- NOTE | 2018-01-25 10:05 | Physician Discharge Referral ---
Home Health/Hosp Referral Info Transfer to: Home Health Provider in Charge Post Discharge: PCP - Diagnosis (1) Chest pain Priority: Primary Status: Acute (2) Diabetes mellitus Priority: Secondary Status: Acute (3) Elevated lactic acid level Priority: Secondary Status: Resolved (4) Elevated troponin Priority: Secondary Status: Acute (5) Hypokalemia Priority: Secondary Status: Resolved (6) Pancytopenia Priority: Secondary Status: Acute (7) Cirrhosis Priority: Secondary Status: Chronic (8) Dementia Priority: Secondary Status: Chronic (9) HLD (hyperlipidemia) Priority: Secondary Status: Chronic (10) Osteoporosis Priority: Secondary Status: Chronic (11) HTN (hypertension) Priority: Secondary Status: Chronic (12) CHF (congestive heart failure) Priority: Secondary Status: Acute (13) DVT prophylaxis Priority: Secondary Status: Acute - Respiratory Orders Smoking Cessation: Smoking cessation has been advised. For more information, call the [place] Tobacco Quit Line at 0-848-OKFR-NOW. - Diet/Nutrition Diet/Nutrition Orders: No Added Salt (VENICE), Cardiac, No Concentrated Sweets - Activity Activity Orders: Ambulate, Walker - Services Needed Following services are medically necessary services: Nursing, Home Health Aide, Physical Therapy, Occupational Therapy - Transfer Medications Home Medications: Amitriptyline [Elavil] 40 mg PO HS 07/04/16 [History] Escitalopram [Lexapro] 20 mg PO DAILY 07/04/16 [History] Esomeprazole Magnesium [Nexium] 40 mg PO DAILY 07/04/16 [History] LORazepam [Ativan] 1 mg PO QID 07/04/16 [History] Lisinopril [Zestril] 40 mg PO DAILY 07/04/16 [History] Metoprolol [Lopressor] 25 mg PO BID 07/04/16 [History] Oxycodone HCl/Acetaminophen [Percocet 10-325 mg Tablet] 1 tab PO Q8H PRN [History] Risedronate Sodium [Actonel] 35 mg PO QWEEK 07/04/16 [History] Simvastatin [Zocor] 20 mg PO HS 07/04/16 [History] Sucralfate [Carafate] 1 gm PO QIDAC 07/04/16 [History] metFORMIN [Glucophage] 500 mg PO BIDWM 07/04/16 [History] Furosemide [Lasix] 20 mg PO BID #60 tablet 11/16/17 [Rx] Donepezil HCl [Aricept] 10 mg PO DAILY 01/23/18 [History] Aspirin Enteric Coated [Aspirin EC] 81 mg PO DAILY tablet. 01/25/18 [Rx] Allergies/Adverse Reactions: 3 Allergy/AdvReac Type Severity Reaction Status Date / Time haloperidol Allergy Hallucinati Verified 09/09/17 13:46 ng Certification: Further, I certify that my clinical findings support that this patient is homebound (i.e. absences from home require considerable and taxing effort and are for medical reasons or hindu services or infrequently or short duration when for other reasons) because: Homebound Reason: Patient requires assistance of a person or device to safely leave home, Absences from home are contraindicated except to recieve medical care, Post-surgery restriction and or conditions limit ability to leave home, Leaving home requires considerable and taxing effort due to condition, Altered mental status requiring supervision when leaving home Attestation: My signature below is to certify that this patient is under my care and that I, or nurse practitioner, or a physician's bookkeeper assistant working with me, has a face-to -face encounter with this patient.
--- NOTE | 2018-01-26 09:35 | Electrocardiograph Report ---
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
--- NOTE | 2018-01-26 09:38 | Electrocardiograph Report ---
[place] [id number] Test Date: 2018-01-23 Pat Name: Amira Nieto Department: 113 Room: 3B32 Gender: F [employer]: : 1940 Requested By: [id number] Order Number: [id number] Reading MD: Carson Zabala Measurements Intervals [place] Rate: 63 P: 41 AL: 159 QRS: -32 QRSD: 173 T: 93 QT: 439 QTc: 446 Interpretive Statements SINUS RHYTHM MARKED LEFT AXIS DEVIATION LEFT BUNDLE BRANCH BLOCK Electronically Signed On 01-26-2018 9:36:41 EDT by Carson Zabala
== END 2018-01-25 10:43 | disposition home or self-care (01) | DRG 313 ==
LOC: 3BNU 21:04 → EMEROOARM 21:04 → 3BNU 01-23 00:24
PROVIDERS: ADMIT Internal Medicine; ATTEND Internal Medicine

== ENCOUNTER 2018-04-17 08:54 | Inpatient (IN) ==
--- NOTE | 2018-04-17 09:23 | Emergency Department Note ---
Disposition Clinical Impression: Acute bronchiolitis due to other infectious organisms, Hypoxia, Pulmonary nodule Dyspnea Qualifiers: Dyspnea type: unspecified Qualified Code(s): R06.00 - Dyspnea, unspecified Disposition: Admitted As Inpatient Condition: Good Referrals: Sy Beaver DO [Primary Care Provider] - Forms: ED Satisfaction Letter Time of Disposition: 12:00 SOB HPI - General Chief Complaint: ED Shortness of Breath/Dyspnea Stated Complaint: respiratory distress Time Seen by Provider: 04/17/18 08:57 Source: patient, family ([facility]), EMS Mode of arrival: EMS Limitations: no limitations Nursing Notes Reviewed: Yes Vital Signs Reviewed: Yes - History of Present Illness 77-year-old female history of dementia and cirrhosis of the liver presents to the emergency departent EMS with complaint of respiratory distress. She lives at home with her son. The patient son is present and assists with a history. States this morning she had increase worker breathing. He checked her oxygen saturation with a finger pulse ox and was 89% on room air. He also noticed that her heart rate was elevated 140. She has been coughing with productive sputum. No reported fevers. She was recently discharged from the hospital last week for similar symptoms diagnosed with possible pneumonia and fluid on the lungs. At this time she denies any shortness of breath. She denies any chest pain. No history of cardiac ischemic disease, COPD or heart failure. Pt Subjective Complaint: shortness of breath - Related Data Home Medications Medication Instructions Recorded Confirmed Amitriptyline [Elavil] 40 mg PO HS 07/04/16 04/05/18 Escitalopram [Lexapro] 20 mg PO DAILY 07/04/16 04/05/18 Esomeprazole Magnesium [Nexium] 40 mg PO DAILY 07/04/16 04/05/18 LORazepam [Ativan] 1 mg PO QID 07/04/16 04/05/18 Metoprolol [Lopressor] 25 mg PO BID 07/04/16 04/05/18 Oxycodone HCl/Acetaminophen 1 tab PO Q8H PRN 07/04/16 04/05/18 [Percocet 10-325 mg Tablet] Risedronate Sodium [Actonel] 35 mg PO QWEEK 07/04/16 04/05/18 Simvastatin [Zocor] 20 mg PO HS 07/04/16 04/05/18 Sucralfate [Carafate] 1 gm PO QIDAC 07/04/16 04/05/18 Donepezil HCl [Aricept] 10 mg PO DAILY 01/23/18 04/05/18 Previous Rx's Medication Instructions Recorded Furosemide [Lasix] 20 mg PO BID #60 tablet 11/16/17 Lisinopril [Zestril] 10 mg PO DAILY #30 tablet 04/10/18 levoFLOXacin [Levaquin] 750 mg PO Q48H #1 tablet 04/10/18 Allergies Allergy/AdvReac Type Severity Reaction Status Date / Time haloperidol Allergy Hallucinati Verified 09/09/17 13:46 ng All systems ED: reviewed and negative except as stated. Review of Systems: As Per HPI Constitutional: Denies: fever, chills ENT ED: Reports: congestion Cardiovascular: Denies: chest pain Respiratory: Reports: cough, dyspnea Gastrointestinal: Denies: abdominal pain, nausea, vomiting Genitourinary: Denies: dysuria Musculoskeletal: Denies: back pain Integumentary: Denies: rash, abrasion Neurological: Denies: headache Endocrine: Denies: fatigue Past Medical History - Past Medical History Attestation: Yes The following information was validated with the patient. 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 Absent: tenderness - Respiratory Respiratory exam: Present: normal lung sounds bilaterally, wheezes, prolonged expiratory phase, other (coarse breath sounds). Absent: respiratory distress - Cardiovascular Cardiovascular exam: Present: regular rate, normal rhythm, normal heart sounds - Abdominal Exam Abdominal exam: Present: soft, Non-Tender. Absent: tenderness, distention, guarding, rebound, rigidity - Extremities Exam Extremities exam: Present: normal inspection, full ROM. Absent: tenderness, pedal edema - Back Exam Back exam: Present: normal inspection, full ROM. Absent: tenderness - Neurological Exam Neurological exam: Present: alert - Psychiatric Psychiatric exam: Present: normal mood, flat affect. Absent: depressed - Skin Skin exam: Present: warm, dry, intact, pallor. Absent: rash, cyanosis, diaphoresis Course Course Narrative: Patient appears in no respiratory distress at this time. Oxygen saturation 98% on to liter nasal cannula. Patient is not on any home to oxygen at baseline. She is mouth breathing and does have course breath sounds bilaterally. Given her recent hospitalization for pneumonia will obtain chest x-ray basic lab work including EKG and troponin. Patient disposition pending final workup. - Reevaluation(s) Reevaluation #1: Chest x-ray shows improved vascular congestion from prior. She continues to have wheezing bilaterally despite initial breathing treatment. No reports of history of smoking are COPD. Treat for COPD exacerbation at this time. Troponin and BNP unremarkable. Given the hypoxia and tachycardia with the wheezing and no COPD history or fluid overload state will evaluate with CT scan to rule out pulmonary embolism. Issue will require admission for her increase work of breathing dyspnea and hypoxia. Time: 11:27 Reevaluation #2: On repeat evaluation patient has more diffuse wheezing. Additional DuoNeb treatment given as well as steroids. Her CT scan did not show pulmonary embolism but concerning findings for infectious bronchiolitis. This would explain her wheezing at this time. She is not febrile but has increase worker breathing and will be admitted for further management treatment. The son and patient are in agreement with this plan. Due to her recent hospitalization vancomycin and Zosyn will be given. Impression is wheezing, increase work of breathing, dyspnea and hypoxia. Time: 11:48 - Consultations Consultation #1: Spoke with on-call hospitalist julia Farias to admit for hypoxia, increased work of breathing, wheezing, infectious bronchiolitis. No further orders at this time Time: 11:59 Vital Signs Temperature 98.4 F 04/17/18 08:56 Pulse Rate 65 04/17/18 08:56 Respiratory Rate 19 04/17/18 08:56 Blood Pressure 131/68 04/17/18 08:56 O2 Sat by Pulse Oximetry 100 04/17/18 08:56 Temperature 98.4 F 04/17/18 09:12 Pulse Rate 68 04/17/18 11:49 Respiratory Rate 15 04/17/18 11:49 Blood Pressure 140/62 04/17/18 11:49 O2 Sat by Pulse Oximetry 97 04/17/18 11:49 Oxygen Delivery Oxygen Delivery Nasal Cannula Shortness of Breath/Dyspnea - MDM Narrative Medical decision making narrative: Patient was discussed with my attending physician who agrees with ED management and final disposition. They independently evaluated the patient. Please refer to their attestation to this encounter for additional information. This note was generated by [employer] voice recognition software and as a result grammatical or spelling errors may occur using this program. - Medical Records Medical records reviewed: Yes I reviewed the patient's medical records. - Lab Data Lab results reviewed: Yes I reviewed the patient's lab results. Result diagrams: 04/17/18 09:11 04/17/18 09:11 Lab Results 04/17/18 04/17/18 04/17/18 Range/Units 09:11 09:11 09:11 WBC 5.1 (4.3-11.1) K/mcL RBC 3.46 L (3.82-4.97) M/mcL Hgb 10.7 L (11.5-15.4) g/dL Hct 32.1 L (35.3-44.9) % MCV 92.8 (83.0-100.0) fL MCH 30.9 (28.0-33.3) pg MCHC 33.3 (31.6-35.5) g/dL RDW 14.7 H (11.5-14.5) % Plt Count 85 L (140-400) K/mcL MPV 9.8 (9.4-12.4) fL Immature Gran % 0.4 (0-4) % Seg Neutrophils % 82.6 % Lymphocytes % 8.5 % Monocytes % 5.1 % Eosinophils % 2.8 % Basophils % 0.6 % Neutrophils # 4.2 (1.6-8.9) K/mcL Lymphocytes # 0.4 L (0.6-4.6) K/mcL Monocytes # 0.3 (0.0-1.3) K/mcL Eosinophils # 0.1 (0.0-0.6) K/mcL Basophils # 0.0 (0.0-0.2) K/mcL Immature Plt Fraction 1.6 (1.1-6.1) % PT 14.0 H (9.4-12.1) Seconds INR 1.2 APTT 34.7 (26.0-36.0) Seconds Sodium 135 L (136-145) mEq/L Potassium 4.6 (3.5-5.1) mEq/L Chloride 102 (98-107) mEq/L Carbon Dioxide 25 (23-29) mEq/L BUN 17 (8-23) mg/dL Creatinine 0.91 (0.60-1.20) mg/dL Est GFR ( Amer) > 60 (> 60) Est GFR (Non-Af Amer) 60 (> 60) BUN/Creatinine Ratio 19 (6-26) Glucose 154 H (70-105) mg/dL Calculated Osmolality 285 (280-300) Lactic Acid (0.5-2.2) mmol/L Calcium 9.2 (8.6-10.3) mg/dL Troponin I < 0.03 (< 0.04) ng/mL B-Natriuretic Peptide (Less than 100) pg/mL Urine Color (Yellow) Urine Clarity (Clear) Urine pH (5.0-8.0) pH Units Ur Specific [place] (1.010-1.025) Urine Protein (Neg-Trace) mg/dL Urine Glucose (UA) (Normal) mg/dL Urine Ketones (Negative) mg/dL Urine Blood (Negative) Urine Nitrite (Negative) Urine Bilirubin (Negative) Urine Urobilinogen (Normal) mg/dL Ur Leukocyte Esterase (Negative) Ur Culture Indicated? (NO) 04/17/18 04/17/18 04/17/18 Range/Units 09:11 09:11 09:30 WBC (4.3-11.1) K/mcL RBC (3.82-4.97) M/mcL Hgb (11.5-15.4) g/dL Hct (35.3-44.9) % MCV (83.0-100.0) fL MCH (28.0-33.3) pg MCHC (31.6-35.5) g/dL RDW (11.5-14.5) % Plt Count (140-400) K/mcL MPV (9.4-12.4) fL Immature Gran % (0-4) % Seg Neutrophils % % Lymphocytes % % Monocytes % % Eosinophils % % Basophils % % Neutrophils # (1.6-8.9) K/mcL Lymphocytes # (0.6-4.6) K/mcL Monocytes # (0.0-1.3) K/mcL Eosinophils # (0.0-0.6) K/mcL Basophils # (0.0-0.2) K/mcL Immature Plt Fraction (1.1-6.1) % PT (9.4-12.1) Seconds INR APTT (26.0-36.0) Seconds Sodium (136-145) mEq/L Potassium (3.5-5.1) mEq/L Chloride (98-107) mEq/L Carbon Dioxide (23-29) mEq/L BUN (8-23) mg/dL Creatinine (0.60-1.20) mg/dL Est GFR ( Amer) (> 60) Est GFR (Non-Af Amer) (> 60) BUN/Creatinine Ratio (6-26) Glucose (70-105) mg/dL Calculated Osmolality (280-300) Lactic Acid 1.2 (0.5-2.2) mmol/L Calcium (8.6-10.3) mg/dL Troponin I (< 0.04) ng/mL B-Natriuretic Peptide 99 (Less than 100) pg/mL Urine Color Yellow (Yellow) Urine Clarity Clear (Clear) Urine pH 5.0 (5.0-8.0) pH Units Ur Specific [place] 1.022 (1.010-1.025) Urine Protein Negative (Neg-Trace) mg/dL Urine Glucose (UA) Normal (Normal) mg/dL Urine Ketones Negative (Negative) mg/dL Urine Blood Negative (Negative) Urine Nitrite Negative (Negative) Urine Bilirubin Negative (Negative) Urine Urobilinogen Normal (Normal) mg/dL Ur Leukocyte Esterase Negative (Negative) Ur Culture Indicated? NO (NO) - Radiology Data Radiology results reviewed: Yes I reviewed the patient's radiology results. Chest X-Ray 04/17/18 08:58 IMPRESSION: 1. Mild pulmonary vascular congestion, improved compared to the previous study. D/ / 04/17/2018 09:50:30 Pb Perea MD / glen Interpreting Provider: Pb Perea MD bdomen/Pelvis CT 04/17/18 09:57 IMPRESSION: 1. No acute CT finding to account for patient's abdominal pain. 2. Cirrhosis with portal venous hypertension, splenomegaly, and gastric varices. 3. Bronchial wall thickening in the lung bases bilaterally with numerous tree-in-bud nodules suggestive of bronchiolitis and bronchitis. Incidental finding of 4 mm and 5 mm nodules in the left lower lobe. Please see below for follow-up recommendations. 4. Sigmoid diverticulosis. No evidence of diverticulitis. 5. Isolated 1.3 cm hypodensity in the spleen. In isolation, finding is statistically favored to be benign. 6. Cholecystectomy and hysterectomy. RECOMMENDATIONS: Fleischner Society guidelines for follow-up and management of incidentally detected pulmonary nodules: Multiple Solid Nodules: Nodule size less than 6 mm In a low-risk patient, no routine follow-up. In a high-risk patient, optional CT at 12 months. - Low risk patients include individuals with minimal or absent history of smoking and other known risk factors. - High risk patients include individuals with a history or smoking or known risk factors. Radiology 2017 http://pubs.rsna.org/doi/full/10.1148/radiol.[email or web address] D/ / 04/17/2018 11:02:02 Awais Burton MD / francisco Interpreting Provider: Awais Burton MD Chest CTA 04/17/18 10:43 IMPRESSION: 1. No pulmonary embolism. 2. Numerous micronodules throughout both lungs, many of which have a tree-in-bud appearance, and are most compatible with an infectious bronchiolitis. The largest nodules measure 4 mm in size. A follow-up chest CT in 12 months can be obtained if the patient is high risk, although, otherwise no routine follow-up imaging is indicated as outlined below. 3. Enlargement of the main pulmonary artery, compatible with pulmonary artery hypertension. 4. Chronic lower thoracic compression fractures, severe at T12. RECOMMENDATIONS: Fleischner Society guidelines for follow-up and management of incidentally detected pulmonary nodules: Multiple Solid Nodules: Nodule size less than 6 mm In a low-risk patient, no routine follow-up. In a high-risk patient, optional CT at 12 months. - Low risk patients include individuals with minimal or absent history of smoking and other known risk factors. - High risk patients include individuals with a history or smoking or known risk factors. Radiology 2017 http://pubs.rsna.org/doi/full/10.1148/radiol.[email or web address] D/ / 04/17/2018 11:33:56 Jeremie Brock MD / nancy Interpreting Provider: Jeremie Brock MD - EKG Data EKG attestation: Yes I reviewed and interpreted this EKG. EKG results narrative: EKG performed 900 normal sinus rhythm 73 beats per minute, left bundle branch block that appears unchanged from prior EKG performed 04/05/2018. No Sgarbossa criteria. No acute ischemic changes. Attestation Statement - Attestation Attestation: I, Olvin Yanez DO, examined this patient [id number] and my medical decision-making was reviewed with Jacob Byrd DO , Resident Physician. I agree with the documented findings, disposition and treatment plan as described except to the extent set forth below. Please see my progress notes for details.
[2018-04-17 09:26] LABS: Immature Granulocytes % 0.4 % (0-4)
[2018-04-17 09:28] LABS: Basophils % 0.6 %; Eosinophils # 0.1 K/mcL (0.0-0.6); Eosinophils % 2.8 %; Hematocrit 32.1 % (35.3-44.9); Hemoglobin 10.7 g/dL (11.5-15.4); Immature Platelets 1.6 % (1.1-6.1); Lymphocytes # 0.4 K/mcL (0.6-4.6); Lymphocytes % 8.5 %; Mean Corpuscular HGB Conc 33.3 g/dL (31.6-35.5); Mean Corpuscular Hemoglobin 30.9 pg (28.0-33.3); Mean Corpuscular Volume 92.8 fL (83.0-100.0); Mean Platelet Volume 9.8 fL (9.4-12.4); Monocytes # 0.3 K/mcL (0.0-1.3); Monocytes % 5.1 %; Neutrophils # 4.2 K/mcL (1.6-8.9); Red Blood Count 3.46 M/mcL (3.82-4.97); Red Cell Distribution Width 14.7 % (11.5-14.5); Segmented Neutrophils % 82.6 %
[2018-04-17 09:36] LABS: Platelet Count 85 K/mcL (140-400)
[2018-04-17 09:41] LABS: INR 1.2
[2018-04-17] MEDS ORDERED: Ipratropium/Albuterol Neb 3 ML IH ONE ×2 (09:43→11:26)
[2018-04-17 09:44] LABS: Activated Partial Thrombo Time 34.7 Seconds (26.0-36.0)
[2018-04-17 09:46] LABS: Bilirubin,Urine Negative (Negative); Blood,Urine Negative (Negative); Clarity,Urine Clear (Clear); Color,Urine Yellow (Yellow); Glucose,Urine (UA) Normal (Normal); Ketones,Urine Negative (Negative); Leukocyte Esterase,Urine Negative (Negative); Nitrite,Urine Negative (Negative); Protein,Urine Negative (Neg-Trace); Specific Gravity,Urine 1.022 (1.010-1.025); Urobilinogen,Urine Normal (Normal)
[2018-04-17] MEDS ORDERED: Ondansetron 4 MG/2 ML VIAL IVP ONE (09:53)
[2018-04-17 09:55] LABS: Troponin I < 0.03 ng/mL (< 0.04)
[2018-04-17 10:10] LABS: BUN/Creatinine Ratio 19 (6-26); Blood Urea Nitrogen 17 mg/dL (8-23); Calcium 9.2 mg/dL (8.6-10.3); Carbon Dioxide 25 mEq/L (23-29); Chloride 102 mEq/L (98-107); Glucose 154 mg/dL (70-105); Osmolality,Calculated 285 (280-300); Potassium 4.6 mEq/L (3.5-5.1); Sodium 135 mEq/L (136-145); eGFR For Non-African Americans 60 (> 60)
--- NOTE | 2018-04-17 10:11 | Emergency Department Note ---
Disposition Clinical Impression: Acute bronchiolitis due to other infectious organisms, Hypoxia, Pulmonary nodule Dyspnea Qualifiers: Dyspnea type: unspecified Qualified Code(s): R06.00 - Dyspnea, unspecified Disposition: Admitted As Inpatient Condition: Fair Referrals: Sy Beaver DO [Partnered Physician] - Forms: ED Satisfaction Letter Time of Disposition: 12:23 General Adult HPI - General Chief complaint: ED Shortness of Breath/Dyspnea Stated complaint: respiratory distress Time Seen by Provider: 04/17/18 08:57 Source: patient, family ([facility]), EMS Mode of arrival: EMS Limitations: no limitations - History of Present Illness Pain Scale: 0 - Related Data Home Medications Medication Instructions Recorded Confirmed Amitriptyline [Elavil] 40 mg PO HS 07/04/16 04/05/18 Escitalopram [Lexapro] 20 mg PO DAILY 07/04/16 04/05/18 Esomeprazole Magnesium [Nexium] 40 mg PO DAILY 07/04/16 04/05/18 LORazepam [Ativan] 1 mg PO QID 07/04/16 04/05/18 Metoprolol [Lopressor] 25 mg PO BID 07/04/16 04/05/18 Oxycodone HCl/Acetaminophen 1 tab PO Q8H PRN 07/04/16 04/05/18 [Percocet 10-325 mg Tablet] Risedronate Sodium [Actonel] 35 mg PO QWEEK 07/04/16 04/05/18 Simvastatin [Zocor] 20 mg PO HS 07/04/16 04/05/18 Sucralfate [Carafate] 1 gm PO QIDAC 07/04/16 04/05/18 Donepezil HCl [Aricept] 10 mg PO DAILY 01/23/18 04/05/18 Previous Rx's Medication Instructions Recorded Furosemide [Lasix] 20 mg PO BID #60 tablet 11/16/17 Lisinopril [Zestril] 10 mg PO DAILY #30 tablet 04/10/18 Allergies Allergy/AdvReac Type Severity Reaction Status Date / Time haloperidol Allergy Hallucinati Verified 09/09/17 13:46 ng Constitutional: Denies: fever, chills ENT ED: Reports: congestion Cardiovascular: Denies: chest pain Respiratory: Reports: cough, dyspnea Gastrointestinal: Denies: abdominal pain, nausea, vomiting Genitourinary: Denies: dysuria Musculoskeletal: Denies: back pain Integumentary: Denies: rash, abrasion Neurological: Denies: headache Endocrine: Denies: fatigue Past Medical History - Past Medical History Medical history: Reports: cirrhosis, dementia, diabetes, GERD, hyperlipidemia, hypertension, other Surgical history: Reports: hysterectomy Psychiatric history: Reports: depression 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 - Social History Smoking Status: Never smoker Smokeless Tobacco Status: No Alcohol use: Reports: unknown Drug use: Reports: none Physical Exam - General Limitations: no limitations General appearance: alert, in no apparent distress Course Vital Signs Temperature 98.4 F 04/17/18 08:56 Pulse Rate 65 04/17/18 08:56 Respiratory Rate 19 04/17/18 08:56 Blood Pressure 131/68 04/17/18 08:56 O2 Sat by Pulse Oximetry 100 04/17/18 08:56 Temperature 98.4 F 04/17/18 09:12 Pulse Rate 68 04/17/18 11:49 Respiratory Rate 15 04/17/18 11:49 Blood Pressure 140/62 04/17/18 11:49 O2 Sat by Pulse Oximetry 97 04/17/18 11:49 Oxygen Delivery Oxygen Delivery Nasal Cannula Medical Decision Making - Lab Data Result diagrams: 04/17/18 09:11 04/17/18 09:11 Lab Results 04/17/18 04/17/18 04/17/18 Range/Units 09:11 09:11 09:11 WBC 5.1 (4.3-11.1) K/mcL RBC 3.46 L (3.82-4.97) M/mcL Hgb 10.7 L (11.5-15.4) g/dL Hct 32.1 L (35.3-44.9) % MCV 92.8 (83.0-100.0) fL MCH 30.9 (28.0-33.3) pg MCHC 33.3 (31.6-35.5) g/dL RDW 14.7 H (11.5-14.5) % Plt Count 85 L (140-400) K/mcL MPV 9.8 (9.4-12.4) fL Immature Gran % 0.4 (0-4) % Seg Neutrophils % 82.6 % Lymphocytes % 8.5 % Monocytes % 5.1 % Eosinophils % 2.8 % Basophils % 0.6 % Neutrophils # 4.2 (1.6-8.9) K/mcL Lymphocytes # 0.4 L (0.6-4.6) K/mcL Monocytes # 0.3 (0.0-1.3) K/mcL Eosinophils # 0.1 (0.0-0.6) K/mcL Basophils # 0.0 (0.0-0.2) K/mcL Immature Plt Fraction 1.6 (1.1-6.1) % PT 14.0 H (9.4-12.1) Seconds INR 1.2 APTT 34.7 (26.0-36.0) Seconds Sodium 135 L (136-145) mEq/L Potassium 4.6 (3.5-5.1) mEq/L Chloride 102 (98-107) mEq/L Carbon Dioxide 25 (23-29) mEq/L BUN 17 (8-23) mg/dL Creatinine 0.91 (0.60-1.20) mg/dL Est GFR ( Amer) > 60 (> 60) Est GFR (Non-Af Amer) 60 (> 60) BUN/Creatinine Ratio 19 (6-26) Glucose 154 H (70-105) mg/dL Calculated Osmolality 285 (280-300) Lactic Acid (0.5-2.2) mmol/L Calcium 9.2 (8.6-10.3) mg/dL Troponin I < 0.03 (< 0.04) ng/mL B-Natriuretic Peptide (Less than 100) pg/mL Urine Color (Yellow) Urine Clarity (Clear) Urine pH (5.0-8.0) pH Units Ur Specific [place] (1.010-1.025) Urine Protein (Neg-Trace) mg/dL Urine Glucose (UA) (Normal) mg/dL Urine Ketones (Negative) mg/dL Urine Blood (Negative) Urine Nitrite (Negative) Urine Bilirubin (Negative) Urine Urobilinogen (Normal) mg/dL Ur Leukocyte Esterase (Negative) Ur Culture Indicated? (NO) 04/17/18 04/17/18 04/17/18 Range/Units 09:11 09:11 09:30 WBC (4.3-11.1) K/mcL RBC (3.82-4.97) M/mcL Hgb (11.5-15.4) g/dL Hct (35.3-44.9) % MCV (83.0-100.0) fL MCH (28.0-33.3) pg MCHC (31.6-35.5) g/dL RDW (11.5-14.5) % Plt Count (140-400) K/mcL MPV (9.4-12.4) fL Immature Gran % (0-4) % Seg Neutrophils % % Lymphocytes % % Monocytes % % Eosinophils % % Basophils % % Neutrophils # (1.6-8.9) K/mcL Lymphocytes # (0.6-4.6) K/mcL Monocytes # (0.0-1.3) K/mcL Eosinophils # (0.0-0.6) K/mcL Basophils # (0.0-0.2) K/mcL Immature Plt Fraction (1.1-6.1) % PT (9.4-12.1) Seconds INR APTT (26.0-36.0) Seconds Sodium (136-145) mEq/L Potassium (3.5-5.1) mEq/L Chloride (98-107) mEq/L Carbon Dioxide (23-29) mEq/L BUN (8-23) mg/dL Creatinine (0.60-1.20) mg/dL Est GFR ( Amer) (> 60) Est GFR (Non-Af Amer) (> 60) BUN/Creatinine Ratio (6-26) Glucose (70-105) mg/dL Calculated Osmolality (280-300) Lactic Acid 1.2 (0.5-2.2) mmol/L Calcium (8.6-10.3) mg/dL Troponin I (< 0.04) ng/mL B-Natriuretic Peptide 99 (Less than 100) pg/mL Urine Color Yellow (Yellow) Urine Clarity Clear (Clear) Urine pH 5.0 (5.0-8.0) pH Units Ur Specific [place] 1.022 (1.010-1.025) Urine Protein Negative (Neg-Trace) mg/dL Urine Glucose (UA) Normal (Normal) mg/dL Urine Ketones Negative (Negative) mg/dL Urine Blood Negative (Negative) Urine Nitrite Negative (Negative) Urine Bilirubin Negative (Negative) Urine Urobilinogen Normal (Normal) mg/dL Ur Leukocyte Esterase Negative (Negative) Ur Culture Indicated? NO (NO) Attestation Statement - Attestation Attestation: I, Olvin Yanez DO, examined this patient [id number] and my medical decision-making was reviewed with Jacob Byrd DO , Resident Physician. I agree with the documented findings, disposition and treatment plan as described except to the extent set forth below. Please see my progress notes for details. 77-year-old female presents to the emergency room with complaint of increased work of breathing. She lives at home with family. She has baseline dementia. She is been seen and evaluated in the hospital and discharged home within the last week. She is diagnosed with pneumonia at that time but was not discharged home with oxygen or other medications. Patient family who is with her denied any specific history of congestive heart failure COPD. She has never required oxygen in the past. During the events here this morning, the patient denied chest pain, fevers, chills, nausea, vomiting, diarrhea. Denies any headache or vision change. Main complaint was increased work of breathing shortness of breath. She denies any recent falls or injuries. All this information was confirmed by the son who is with her at the bedside. Vital signs initially are stable. EMS did disclose that when they found her to the hospital pulse ox was 89% and Tuesday placed on oxygen and she went to 100% without any problem. Her lungs do coarse crackles and intermittent wheezing noted in bilateral lung trotter. Heart is regular with no murmurs. Abdomen is soft nontender nondistended with no pulsatile masses or lesions. She has normal function of her upper and lower extremities. No signs of facial asymmetry. Cranial nerve II through XII are grossly intact. Patient is able to answer questions appropriately but is confused to her time and place. Patient will have screening evaluation for altered mentation. Shows CT imaging of the head chest x-ray EKG CBC chemistry blood cultures lactic acid and urinalysis collected here in the emergency department. Breathing treatments and steroids will be given secondary to the increased work of breathing and the findings on physical exam. CT imaging of the abdomen will be added on considering she was describing abdominal pain and discomfort even though she did not have reproducible symptoms on physical exam. Disposition will be determined once full workup and treatment course I been established. Patient will most likely require admission for symptomatic control and continuation of care pulmonary related illness. See detailed documentation of the physical exam, medical intervention, medical decision-making and disposition in the resident physician's note. No critical care provider the patient's treatment course at this time 1145 CT scan of the chest does not show any acute signs of pulmonary emboli but there is concern for infectious bronchiolitis with tree-in-bud formation noted on the imaging modality. CT the abdomen does not show any acute findings at this time that warrants admission. Repeat set of breathing treatments does show diffuse wheezing at this time. Patient appears to be responding appropriately to them and may require breathing treatments and oxygen at home secondary to this issue. Patient was discussed with the hospitalist Dr. Gabriel. No other recommendations at this time. Patient had antibiotic regimen started here, blood cultures provided. She does not meet any acute signs of sepsis and lactic acid was normal. Patient will be admitted for continuation of care. Patient will be monitored here in the emergency room until the admission process is completed.
[2018-04-17] MEDS ORDERED: Isovue-370 500 ML INFUS..BTL IV ONE (10:43)
[2018-04-17] MEDS ORDERED: methylPREDNISolone 125 MG/2 ML VIAL IVP ONE (11:26)
[2018-04-17] MEDS ORDERED: Piperacillin/Tazobactam 3.375 GM in Water for inj. (sterile) 20 ML 20 ML IVP ONE (11:48)
--- NOTE | 2018-04-17 13:55 | Electrocardiograph Report ---
[employer] [facility] Test Date: 2018-04-17 Pat Name: Amira Nieto Department: EXAM4 Room: Gender: F Bill Checker: : 1940 Requested By: Olvin Yanez Order Number: [id number] Reading MD: Chad Krishnamurthy Measurements Intervals [place] Rate: 73 P: [place]: QRS: 36 QRSD: 167 T: 93 QT: 476 QTc: 525 Interpretive Statements sinus rhythm Left bundle branch block Electronically Signed On 04-17-2018 13:53:31 EST by Chad Krishnamurthy
[2018-04-17] MEDS ORDERED: Naloxone 0.4 MG/ML INJ IVP PRN (16:48)
[2018-04-17] MEDS ORDERED: *HR* OxyCODONE/APAP 10/325 TABLET PO PRN (17:18)
[2018-04-17] MEDS ORDERED: RISEDRONATE SODIUM 35 MG PO SCH (17:30)
[2018-04-17] MEDS: *HR* LORazepam 1 MG TABLET PO SCH ×2 (17:47→21:27)
[2018-04-17] MEDS: Furosemide 20 MG TABLET PO SCH (17:47)
[2018-04-17] MEDS: MethylPREDNISolone 40 MG/ML VIAL IVP SCH (18:40)
[2018-04-17] MEDS: HYDROcodone BIT/Homatropine LQ 5 MG/5 ML UDC PO SCH (18:46)
--- NOTE | 2018-04-17 18:52 | Internal Med History&Physical ---
Date of Encounter: 04/17/18 Time of Encounter: 18:00 Internal Medicine - H&P: HPI Chief complaint: DIFFICULTY BREATHING/COUGH Admitted From: Home Plans for Post Hospital Care: Home History of present illness: The patient is a 77-year-old woman. She is a very poor historian due to her underlying dementia. Her son was present during the initial emergency room examination. Evidently, the patient has had progressing dyspnea and coughing/wheezing for the last several days. She became hypoxic today morning with pulse ox of 89% on room air. It was associated with tachycardia of 140 and some tachypnea. She was recently hospitalized here for treatment of pneumonia; stayed here for about 6 days; discharged home 1 week ago. She does not any history of COPD or congestive heart failure. Her vitals checked at the time of admission to the emergency department showed normal temperature, heart rate, respiratory rate and blood pressure. She was 108% on FiO2 of 36%. 15 minutes later her pulse is was 99% on 2 L/min nasal cannula oxygen. PAST MEDICAL HX: The patient has been treated for hypertension, hyperlipidemia, GERD and DJD of multiple sites/osteoporosis. She carries diagnosis of liver cirrhosis. However, her pro time INR is only 1.2; she has normal liver function tests (checked on April 05, 2018). She does give underlying mild/moderate dementia; receives her treatments for underlying depression/anxiety. PAST FAMILY HX: See below.. PAST SOCIAL HX: See below.. REVIEW OF SYSTEMS: All 14 organ systems were reviewed by me with the patient. Positive and pertinent negative findings are listed above. The rest of organ systems is negative. PHYSICAL EXAM: Skin: Free of rash and discoloration. Eyes: Sclera is white. There is no discharge from eyes. ENMT: Oral/pharyngeal mucosa is normal in appearance. There is no discharge from nose or ears. Respiratory: Normal breath sounds with no crackles and wheezes bilaterally. CV: Heart is regular with no gallop or murmur. GI: Abdomen is flat and soft with no palpable mass or visceromegaly. : There is no tenderness in patient's flanks bilaterally. Neuro exam: He has good strength in upper and lower extremities. He has normal eye movements. Psychiatric: The patient knows her first name and last name. She knows that she is at [facility]. ADDITIONAL DATA: Chest x-ray shows mild pulmonary vascular congestion; improved when compared to the previous study. CT angios of chest shows numerous micro nodules throughout both lungs. Many of those nodules a tree-in-bud appearance. They are suspicious for an infectious bronchiolitis. There is no evidence for pulmonary emboli. There is chronic lower thoracic compression fractures; severe at T12. At 2.8 cm right thyroid nodule is an accidental finding. It will require ultrasound. CBC shows hemoglobin of 10.7 with WBC of 5.1 thousand and platelet count of 85,000 (she has chronic thrombocytopenia). Pro time INR is 1.2. BMP is normal (random glucose of 154). BNP is only 99. Troponin is below 0.03. A/P: Acute infectious bronchiolitis in a patient who was treated recently for pneumo rickey. She has developed mild acute hypoxic respiratory failure. Will treated aggressively with IV vancomycin/IV Zosyn together with IV Solu-Medrol and nebulizer treatments with DuoNeb. She will get supplemental oxygen, if needed. Chronic thrombocytopenia. Stable. No need to treat it at this time. Hypertension. Under control. We will keep her on her Lopressor and Zestril. GERD. To continue Prilosec and Carafate. Past Med Surg Social Fam HX - Past Medical History Medical history: cirrhosis, dementia, diabetes, GERD, hyperlipidemia, hypertension, other Additional medical history: stomach ulcers, hiatel hernia, metal plate in head, UTI's Psychiatric history: depression - Past Surgical History Surgical History: hysterectomy Additional surgical history: family states "sx for bleeding ulcer" - Social History Smoking Status: Never smoker Smokeless Tobacco Status: No Alcohol use: unknown Drug use: none - Family History Sister Adopted: No Family Member Ethnicity: Non- Living Status: Hx Family Cardiac Disorders: Yes (Brain aneurysm) Hx Family Respiratory Disorders: No Hx Family Cancer: No Hx Family GI Disorders: No Hx Family Endocrine Disorder: No Hx Family Neuromuscular Disorders: No Hx Family Neurologic Disorders: No Hx Family HEENT Disorders: No Hx Family Autoimmune Disorders: No Brother Family Member Ethnicity: Non- Living Status: Hx Family Cardiac Disorders: Yes (HF, CAD) Mother Family Member Ethnicity: Non- Living Status: Hx Family Cardiac Disorders: Yes (HF, CAD, HTN) Father Family Member Ethnicity: Non- Living Status: Hx Family GI Disorders: Yes (Bleeding ulcers) Internal Medicine - H&P: Meds Amitriptyline [Elavil] 40 mg PO HS 07/04/16 [History] Escitalopram [Lexapro] 20 mg PO DAILY 07/04/16 [History] Esomeprazole Magnesium [Nexium] 40 mg PO DAILY 07/04/16 [History] LORazepam [Ativan] 1 mg PO QID 07/04/16 [History] Metoprolol [Lopressor] 25 mg PO BID 07/04/16 [History] Oxycodone HCl/Acetaminophen [Percocet 10-325 mg Tablet] 1 tab PO Q8H PRN 07/04/16 [History] Risedronate Sodium [Actonel] 35 mg PO QWEEK 07/04/16 [History] Simvastatin [Zocor] 20 mg PO HS 07/04/16 [History] Sucralfate [Carafate] 1 gm PO QIDAC 07/04/16 [History] Furosemide [Lasix] 20 mg PO BID #60 tablet 11/16/17 [Rx] Donepezil HCl [Aricept] 10 mg PO DAILY 01/23/18 [History] Lisinopril [Zestril] 10 mg PO DAILY #30 tablet 04/10/18 [Rx] Allergy/AdvReac Type Severity Reaction Status Date / Time haloperidol Allergy Hallucinati Verified 09/09/17 13:46 ng - Constitutional Vitals: Temp Pulse Resp BP Pulse Ox 98.0 F 78 14 111/73 94 04/17/18 15:29 04/17/18 15:29 04/17/18 15:29 04/17/18 15:29 04/17/18 15:29 General appearance: Present: A&O X 2, answers questions appropriately Exam: xx Internal Med - H&P Results - Labs CBC & Chem 7: 04/17/18 09:11 04/17/18 09:11 Labs: Short CBC 04/17/18 Range/Units 09:11 WBC 5.1 (4.3-11.1) K/mcL Hgb 10.7 L (11.5-15.4) g/dL Hct 32.1 L (35.3-44.9) % Plt Count 85 L (140-400) K/mcL Neutrophils # 4.2 (1.6-8.9) K/mcL BMP 04/17/18 09:11 Sodium 135 L Potassium 4.6 Chloride 102 Carbon Dioxide 25 BUN 17 Creatinine 0.91 Glucose 154 H Calcium 9.2 Cardiac Enzymes 04/17/18 Range/Units 09:11 Troponin I < 0.03 (< 0.04) ng/mL Urine 04/17/18 Range/Units 09:30 Urine Color Yellow (Yellow) Urine Clarity Clear (Clear) Urine pH 5.0 (5.0-8.0) pH Units Ur Specific [place] 1.022 (1.010-1.025) Urine Protein Negative (Neg-Trace) mg/dL Urine Glucose (UA) Normal (Normal) mg/dL - Impressions ITS Impressions Chest X-Ray 04/17/18 08:58 IMPRESSION: 1. Mild pulmonary vascular congestion, improved compared to the previous study. D/ / 04/17/2018 09:50:30 Pb Perea MD / glen Interpreting Provider: Pb Perea MD Abdomen/Pelvis CT 04/17/18 09:57 IMPRESSION: 1. No acute CT finding to account for patient's abdominal pain. 2. Cirrhosis with portal venous hypertension, splenomegaly, and gastric varices. 3. Bronchial wall thickening in the lung bases bilaterally with numerous tree-in-bud nodules suggestive of bronchiolitis and bronchitis. Incidental finding of 4 mm and 5 mm nodules in the left lower lobe. Please see below for follow-up recommendations. 4. Sigmoid diverticulosis. No evidence of diverticulitis. 5. 1.3 cm hypodensity in the spleen. In isolation, finding is statistically favored to be benign. 6. Cholecystectomy and hysterectomy. RECOMMENDATIONS: Fleischner Society guidelines for follow-up and management of incidentally detected pulmonary nodules: Multiple Solid Nodules: Nodule size less than 6 mm In a low-risk patient, no routine follow-up. In a high-risk patient, optional CT at 12 months. - Low risk patients include individuals with minimal or absent history of smoking and other known risk factors. - High risk patients include individuals with a history or smoking or known risk factors. Radiology 2017 http://pubs.rsna.org/doi/full/10.1148/radiol.8419676211 D/ / 04/17/2018 11:02:02 Awais Burton MD / francisco Interpreting Provider: Awais Burton MD Chest CTA 04/17/18 10:43 IMPRESSION: 1. No pulmonary embolism. 2. Numerous micronodules throughout both lungs, many of which have a tree-in-bud appearance, and are most compatible with an infectious bronchiolitis. The largest nodules measure 4 mm in size. A follow-up chest CT in 12 months can be obtained if the patient is high risk, otherwise no routine follow-up imaging is indicated as outlined below. 3. Enlargement of the main pulmonary artery, compatible with pulmonary artery hypertension. 4. Chronic lower thoracic compression fractures, severe at T12. 5. 2.8 cm right thyroid nodule. Nonemergent thyroid ultrasound is recommended, as outlined below. RECOMMENDATIONS: *Fleischner Society guidelines for follow-up and management of incidentally detected pulmonary nodules: Multiple Solid Nodules: Nodule size less than 6 mm In a low-risk patient, no routine follow-up. In a high-risk patient, optional CT at 12 months. - Low risk patients include individuals with minimal or absent history of smoking and other known risk factors. - High risk patients include individuals with a history or smoking or known risk factors. Radiology 2017 http://pubs.rsna.org/doi/full/10.1148/radiol.1920944233 *Managing Incidental Thyroid Nodule Detected at CT or MRI or US 1. Further evaluation by thyroid Ultrasound recommended for these incidental nodules: Patient Age 18 years or less - Nodule of any size Patient Age 19-34 years old - Nodule 1 cm in size or greater Patient Age 35 years or more - Nodule 1.5 cm in size or greater 2. Follow up thyroid ultrasound also recommend in these scenarios - Solitary nodule with high risk imaging features (locally invasive nodule or suspicious lymph nodes) - Heterogeneous, enlarged thyroid gland. - Increased uptake on PET 3. No further imaging is recommended in the following scenarios - Any nodule not meeting above criteria. - Those patients with limited life expectancy or significant Co-morbidities. Note: These recommendations do not apply to pts. w/ increased risk for thyroid cancer or pts. with symptomatic thyroid disease. Recommendations for f/u of Incidental Thyroid Nodules (ITN) found on CT, MR, NM and Extrathyroidal US are based upon the ACR white paper and Russo 3-tiered system for managing ITNs: J Am Brie Radiol. 2014;12(2): 143-50 D/ / 04/17/2018 11:33:56 Jeremie Brock MD / nancy Interpreting Provider: Jeremie Brock MD - Assessment and plan (1) Acute bronchiolitis Current Visit: Yes Status: Acute Qualifiers: Bronchiolitis organism: unspecified organism Qualified Code(s): J21.9 - Acute bronchiolitis, unspecified (2) Acute respiratory failure with hypoxia Current Visit: Yes Status: Acute (3) Thrombocytopenia Current Visit: Yes Status: Chronic (4) HTN (hypertension) Current Visit: No Status: Chronic Qualifiers: Hypertension type: essential hypertension Qualified Code(s): I10 - Essential (primary) hypertension (5) GERD (gastroesophageal reflux disease) Current Visit: No Status: Chronic Qualifiers: Esophagitis presence: esophagitis presence not specified Qualified Code(s): K21.9 - Gastro-esophageal reflux disease without esophagitis - Time Spent With Patient Total time spent is greater than 50% in coordination of care (as documented) at patient's floor/unit and/or counseling patient: 25 - 35 minutes - VTE Reasons for not Prescribing Prophylaxis: Treatment not Indicated - Low risk for VTE Deep Vein Thrombosis/Pulmonary Embolism Present on Admission: No
[2018-04-17] MEDS: Sucralfate 1 GM TABLET PO SCH (20:04)
[2018-04-17] MEDS: Ipratropium/Albuterol Neb 3 ML IH SCH ×2 (20:05→23:23)
[2018-04-18] MEDS: Piperacillin/Tazobactam 3.375 GM in 0.9 % Sodium Chloride Mini Bag 100 ML IVPB SCH ×4 (01:16→23:38)
[2018-04-18] MEDS: Ipratropium/Albuterol Neb 3 ML IH SCH ×6 (03:42→23:15)
[2018-04-18] MEDS: MethylPREDNISolone 40 MG/ML VIAL IVP SCH ×2 (04:40→17:23)
[2018-04-18] MEDS: HYDROcodone BIT/Homatropine LQ 5 MG/5 ML UDC PO SCH ×5 (04:40→22:02)
[2018-04-18] MEDS: Furosemide 20 MG TABLET PO SCH ×2 (08:08→16:43)
[2018-04-18] MEDS: *HR* LORazepam 1 MG TABLET PO SCH ×4 (08:08→20:25)
[2018-04-18] MEDS: Sucralfate 1 GM TABLET PO SCH ×4 (08:08→22:02)
[2018-04-18] MEDS ORDERED: Aminoglycoside Consult 1 EACH MC ONE (13:38)
[2018-04-18] MEDS ORDERED: Insulin Human Regular 10 UNIT in 0.9 % Sodium Chloride 10 ML IV ONE (15:50)
[2018-04-18] MEDS ORDERED: *HR* Dextrose 50 % in Water (Syg) 50 ML SYRINGE IVP PRN (16:19)
[2018-04-18] MEDS ORDERED: Dextrose Gel 15 GM/37.5 ML TUBE PO PRN ×2 (16:19)
[2018-04-18] MEDS ORDERED: D5% in Water 1,000 ML IVC PRN (16:19)
[2018-04-18] MEDS: Insulin LISPRO 300 UNITS/3 ML VIAL SQ SCH ×3 (16:55→20:26)
[2018-04-18 17:25] LABS: Estimated Average Glucose 114 mg/dl; Hemoglobin A1C 5.6 %
[2018-04-18] MEDS: Insulin DETEMIR 100 UNIT/ML X5UNITS SQ SCH (20:26)
--- NOTE | 2018-04-18 23:54 | Internal Med Progress Note ---
Hospitalist Progress Note - Encounter Date of Encounter: 04/18/18 Time of Encounter: 19:00 - Subjective Interval History: SUBJECTIVE: The patient is very demented. She cannot give me any meaningful history. She is on 3 L/min nasal cannula oxygen; no respiratory distress is seen. OBJECTIVE: Skin: Free of rash and discoloration. ENMT: Oral/pharyngeal mucosa is normal in appearance. Eyes: Sclera is white. There is no discharge from eyes. Respiratory: Normal breath sounds with a few bilateral rhonchi and wheezes. CV: Heart is regular; no gallop or murmur. GI: Abdomen is soft and not tender. There is no palpable mass or visceromegaly. Neuro: There is no focal deficits. ASSESSMENT AND PLAN: Acute bronchiolitis. Recently treated for pneumonia in our hospital. She is doing better today, comparing to yesterday. Nasal swab for staph is negative. I will stop IV vancomycin. I will continue IV Zosyn/IV Levaquin. She is on IV Solu-Medrol and nebulizer treatments with DuoNeb. I gave her Hycodan to control her cough. She does have acute respiratory failure with hypoxia. To continue supplemental oxygen. Thrombocytopenia. Chronic problem. We will check her CBC from time to time. GERD. Controlled. To continue Prilosec and Carafate. - Exam Vitals: Temp Pulse Resp BP Pulse Ox 98.2 F 92 12 101/55 96 04/18/18 19:12 04/18/18 19:12 04/18/18 23:15 04/18/18 19:12 04/18/18 23:15 Exam: xx - Assessment and Plan (1) Acute bronchiolitis Current Visit: Yes Status: Acute (2) Acute respiratory failure with hypoxia Current Visit: Yes Status: Acute (3) Thrombocytopenia Current Visit: Yes Status: Chronic (4) HTN (hypertension) Current Visit: No Status: Chronic (5) GERD (gastroesophageal reflux disease) Current Visit: No Status: Chronic - Time Spent with Patient Total time spent is greater than 50% in coordination of care (as documented) at patient's floor/unit and/or counseling patient: 25 - 35 minutes Plan of Care Discussed with: patient Internal Medicine: Result - Labs CBC & Chem 7: 04/17/18 09:11 04/17/18 09:11 - ABG Interpretation ABG results: PT/INR, D-dimer PT 14.0 Seconds (9.4-12.1) H 04/17/18 09:11 - VTE Reasons for not Prescribing Prophylaxis: Treatment not Indicated - Low risk for VTE Deep Vein Thrombosis/Pulmonary Embolism Present on Admission: No Consult Discharge Plan - Plan Referrals: Sy Beaver DO [Primary Care Provider] - (1) Acute bronchiolitis Qualifiers: Bronchiolitis organism: unspecified organism Qualified Code(s): J21.9 - Acute bronchiolitis, unspecified (4) HTN (hypertension) Qualifiers: Hypertension type: essential hypertension Qualified Code(s): I10 - Essential (primary) hypertension (5) GERD (gastroesophageal reflux disease) Qualifiers: Esophagitis presence: esophagitis presence not specified Qualified Code(s): K21.9 - Gastro-esophageal reflux disease without esophagitis
[2018-04-19] MEDS: Ipratropium/Albuterol Neb 3 ML IH SCH ×6 (04:28→23:04)
[2018-04-19] MEDS: HYDROcodone BIT/Homatropine LQ 5 MG/5 ML UDC PO SCH ×4 (05:45→22:11)
[2018-04-19] MEDS: MethylPREDNISolone 40 MG/ML VIAL IVP SCH (05:45)
[2018-04-19] MEDS: Sucralfate 1 GM TABLET PO SCH ×4 (08:31→20:48)
[2018-04-19] MEDS: Furosemide 20 MG TABLET PO SCH ×2 (08:31→17:36)
[2018-04-19] MEDS: *HR* LORazepam 1 MG TABLET PO SCH ×4 (08:31→20:38)
[2018-04-19] MEDS: Piperacillin/Tazobactam 3.375 GM in 0.9 % Sodium Chloride Mini Bag 100 ML IVPB SCH ×2 (08:31→16:39)
[2018-04-19] MEDS: Insulin LISPRO 300 UNITS/3 ML VIAL SQ SCH ×7 (08:35→20:45)
[2018-04-19 10:54] LABS: Hematocrit 27.1 % (35.3-44.9); Immature Granulocytes % 0.5 % (0-4); Lymphocytes # 0.2 K/mcL (0.6-4.6); Lymphocytes % 2.7 %; Mean Corpuscular HGB Conc 32.5 g/dL (31.6-35.5); Mean Corpuscular Hemoglobin 30.2 pg (28.0-33.3); Mean Corpuscular Volume 93.1 fL (83.0-100.0); Mean Platelet Volume 10.1 fL (9.4-12.4); Monocytes # 0.1 K/mcL (0.0-1.3); Monocytes % 1.6 %; Platelet Count 71 K/mcL (140-400); Red Blood Count 2.91 M/mcL (3.82-4.97); Segmented Neutrophils % 95.2 %
[2018-04-19 10:55] LABS: Hemoglobin 8.8 g/dL (11.5-15.4); Neutrophils # 5.2 K/mcL (1.6-8.9)
[2018-04-19 11:14] LABS: Albumin 2.7 g/dL (3.5-5.7); Albumin/Globulin Ratio 0.9 (1.1-2.2); Bilirubin,Total 0.5 mg/dL (0.3-1.0); Calcium 8.2 mg/dL (8.6-10.3); Potassium 5.2 mEq/L (3.5-5.1); Total Protein 5.7 g/dL (6.4-8.9)
[2018-04-19 11:25] LABS: Platelet Estimate Decreased (Normal)
--- NOTE | 2018-04-19 14:07 | Internal Med Progress Note ---
Hospitalist Progress Note - Encounter Date of Encounter: 04/19/18 Time of Encounter: 14:05 - Subjective Interval History: Patient is doing better as far as her shortness of breath is concerned. She does not provide the best history but most of the history is taken from her grandson sitting next to her. Denies any fever or chills at this point. - Exam Vitals: Temp Pulse Resp BP Pulse Ox 97.4 F L 86 18 107/65 94 04/19/18 11:26 04/19/18 11:26 04/19/18 11:22 04/19/18 11:04/19/18 11:26 Exam: GENERAL: Alert, no distress, cooperative NECK: No jugulovenous distention, No carotid bruits, Carotid pulse normal contour, Supple LUNGS: Faint crackles heard at bilateral lower lobes CARDIAC: Normal S1 and S2; no rubs, murmurs, or gallops ABDOMEN: Abdomen soft, non-tender, BS normal, No masses or organomegaly EXTREMITIES: Extremities normal, no deformities, edema, clubbing or skin discoloration. Good capillary refill., No ulcers PULSES: 2+ radial, 2+ carotid Rest of the exam is non contributory - Assessment and Plan (1) Acute bronchiolitis Current Visit: Yes Status: Acute Assessment and Plan: Continue vancomycin and Zosyn. CT scan showing bronchiolitis. Continue steroids. Consider pulmonary consultation given the patient was recently admitted for pneumonia and underwent a total of 8 days of antibiotics. Weaning oxygen (2) Thrombocytopenia Current Visit: Yes Status: Chronic Assessment and Plan: Stable. Continue to monitor (3) GERD (gastroesophageal reflux disease) Current Visit: No Status: Chronic Assessment and Plan: Continue PPI. (4) HTN (hypertension) Current Visit: No Status: Chronic (5) Acute respiratory failure with hypoxia Current Visit: Yes Status: Acute Assessment and Plan: Gradually improving. Oxygen being weaned down - Time Spent with Patient Total time spent is greater than 50% in coordination of care (as documented) at patient's floor/unit and/or counseling patient: 25 - 35 minutes Plan of Care Discussed with: patient Internal Medicine: Result - Labs CBC & Chem 7: 04/19/18 10:21 04/19/18 10:21 Labs: Short CBC 04/19/18 Range/Units 10:21 WBC 5.5 (4.3-11.1) K/mcL Hgb 8.8 L D (11.5-15.4) g/dL Hct 27.1 L (35.3-44.9) % Plt Count 71 L (140-400) K/mcL Neutrophils # 5.2 (1.6-8.9) K/mcL BMP 04/19/18 10:21 Sodium 128 L Potassium 5.2 H Chloride 98 Carbon Dioxide 25 BUN 29 H Creatinine 1.12 Glucose 274 H Calcium 8.2 L Liver Function 04/19/18 Range/Units 10:21 Total Bilirubin 0.5 (0.3-1.0) mg/dL AST 26 (13-39) Units/L ALT 17 (7-52) Units/L Alkaline Phosphatase 84 (34-104) Units/L Albumin 2.7 L (3.5-5.7) g/dL - ABG Interpretation ABG results: PT/INR, D-dimer PT 14.0 Seconds (9.4-12.1) H 04/17/18 09:11 - VTE Reasons for not Prescribing Prophylaxis: Treatment not Indicated - Low risk for VTE Deep Vein Thrombosis/Pulmonary Embolism Present on Admission: No Consult Discharge Plan - Plan Referrals: Sy Beaver DO [Primary Care Provider] - ____ (1) Acute bronchiolitis Qualifiers: Bronchiolitis organism: unspecified organism Qualified Code(s): J21.9 - Acute bronchiolitis, unspecified (3) GERD (gastroesophageal reflux disease) Qualifiers: Esophagitis presence: esophagitis presence not specified Qualified Code(s): K21.9 - Gastro-esophageal reflux disease without esophagitis (4) HTN (hypertension) Qualifiers: Hypertension type: essential hypertension Qualified Code(s): I10 - Essential (primary) hypertension
--- NOTE | 2018-04-19 16:08 | Pulmonology Consult Note ---
Date of Encounter: 04/19/18 Time of Encounter: 14:10 Assessment and Plan (1) Acute bronchiolitis Current Visit: Yes Status: Acute This patient has sick contact at home and suspect could be viral, however other conditions such as mycobacter avium complex would be in the differential diagnosis since patient has tree-in-bud changes in the CT chest, however is less likely. Clinically patient is doing better and discussed with Dr. Armando will transition to oral steroid and azithromycin since patient has no leukocytosis and I will add Symbicort and continue other bronchodilators, there is possibility this patient could have bronchospasm and reactive airway disease/asthma in the differential diagnosis. Unfortunately was not able to obtain very good history from the patient and I have advised patient's son that she could follow up with us as outpatient and if no improvement perhaps we can set her up for bronchoscopy and bronchoalveolar lavage. She will need follow-up CT in about one year. Thank you for consultation and please do not hesitate to call for any questions. Qualifiers: Bronchiolitis organism: unspecified organism Qualified Code(s): J21.9 - Acute bronchiolitis, unspecified (2) Abnormal CT of the chest Current Visit: Yes Status: Acute History of Present Illness Consult date: 04/19/18 Requesting physician: Loy Armando Reason for consult: abnormal CXR/CT, other (Bronchiolitis) Chief complaint: Shortness of breath History of present illness: This is a pleasant 77-year-old female with underlying dementia and history is given by the son at the bedside. Patient has no history of COPD or asthma, however she has been having problems according to the son for some time. Patient has cough predominantly and no significant sputum production or hemoptysis and she is being treated for pneumonia. Patient does have sick contact at home with the child and she is getting better on current treatment. Patient oxygen agitation is been almost normal at this time and is no acute problems and denies any fever or chills. She has multiple comorbidities and not very active at home. There is no history of recent travel or history of tuberculosis and no exotic animals at home. Past Med Surg Social Fam HX - Past Medical History Medical history: cirrhosis, dementia, diabetes, GERD, hyperlipidemia, hypertension, other Additional medical history: stomach ulcers, hiatel hernia, metal plate in head, UTI's Psychiatric history: depression - Past Surgical History Surgical History: hysterectomy Additional surgical history: family states "sx for bleeding ulcer" - Social History Smoking Status: Never smoker Smokeless Tobacco Status: No Alcohol use: unknown Drug use: none - Family History Sister Adopted: No Family Member Ethnicity: Non- Living Status: Hx Family Cardiac Disorders: Yes (Brain aneurysm) Hx Family Respiratory Disorders: No Hx Family Cancer: No Hx Family GI Disorders: No Hx Family Endocrine Disorder: No Hx Family Neuromuscular Disorders: No Hx Family Neurologic Disorders: No Hx Family HEENT Disorders: No Hx Family Autoimmune Disorders: No Brother Family Member Ethnicity: Non- Living Status: Hx Family Cardiac Disorders: Yes (HF, CAD) Mother Family Member Ethnicity: Non- Living Status: Hx Family Cardiac Disorders: Yes (HF, CAD, HTN) Father Family Member Ethnicity: Non- Living Status: Hx Family GI Disorders: Yes (Bleeding ulcers) Medications and Allergies Amitriptyline [Elavil] 40 mg PO HS 07/04/16 [History] Escitalopram [Lexapro] 20 mg PO DAILY 07/04/16 [History] Esomeprazole Magnesium [Nexium] 40 mg PO DAILY 07/04/16 [History] LORazepam [Ativan] 1 mg PO QID 07/04/16 [History] Metoprolol [Lopressor] 25 mg PO BID 07/04/16 [History] Oxycodone HCl/Acetaminophen [Percocet 10-325 mg Tablet] 1 tab PO Q8H PRN 07/04/16 [History] Risedronate Sodium [Actonel] 35 mg PO QWEEK 07/04/16 [History] Simvastatin [Zocor] 20 mg PO HS 07/04/16 [History] Sucralfate [Carafate] 1 gm PO QIDAC 07/04/16 [History] Furosemide [Lasix] 20 mg PO BID #60 tablet 11/16/17 [Rx] Donepezil HCl [Aricept] 10 mg PO DAILY 01/23/18 [History] Lisinopril [Zestril] 10 mg PO DAILY #30 tablet 04/10/18 [Rx] Allergy/AdvReac Type Severity Reaction Status Date / Time haloperidol Allergy Hallucinati Verified 09/09/17 13:46 ng ROS unobtainable: due to mental status All Systems: The remainder of the systems were reviewed and are negative Physical Examination Vital Signs: Vital Signs, Last 4 Hours Temp Pulse Resp BP Pulse Ox 04/19/18 15:36 98.4 F 72 16 130/71 98 General appearance: no acute distress Eyes: nonicteric ENT: oropharynx moist Neck: supple Effort: normal Inspection: normal Auscultation: bilateral: rhonchi Percussion: bilateral: not dull Cardiovascular: regular rate and rhythm Gastrointestinal: normoactive bowel sounds, non-distended Extremities: no cyanosis non-focal exam mood appropriate Results - Laboratory Findings CBC and BMP: 04/19/18 10:21 04/19/18 10:21 PT/INR, D-dimer PT 14.0 Seconds (9.4-12.1) H 04/17/18 09:11 Abnormal lab findings: Abnormal lab results RBC 2.91 M/mcL (3.82-4.97) L 04/19/18 10:21 Hgb 8.8 g/dL (11.5-15.4) L D 04/19/18 10:21 Hct 27.1 % (35.3-44.9) L 04/19/18 10:21 RDW 15.0 % (11.5-14.5) H 04/19/18 10:21 Plt Count 71 K/mcL (140-400) L 04/19/18 10:21 Lymphocytes # 0.2 K/mcL (0.6-4.6) L 04/19/18 10:21 Platelet Estimate Decreased (Normal) L 04/19/18 10:21 PT 14.0 Seconds (9.4-12.1) H 04/17/18 09:11 Sodium 128 mEq/L (136-145) L 04/19/18 10:21 Potassium 5.2 mEq/L (3.5-5.1) H 04/19/18 10:21 BUN 29 mg/dL (8-23) H 04/19/18 10:21 Est GFR ( Amer) 57 (> 60) L 04/19/18 10:21 Est GFR (Non-Af Amer) 47 (> 60) L 04/19/18 10:21 Glucose 274 mg/dL (70-105) H 04/19/18 10:21 POC Glucose 238 mg/dL (70-99) H 04/18/18 20:22 Calcium 8.2 mg/dL (8.6-10.3) L 04/19/18 10:21 Serum Total Protein 5.7 g/dL (6.4-8.9) L 04/19/18 10:21 Albumin 2.7 g/dL (3.5-5.7) L 04/19/18 10:21 Albumin/Globulin Ratio 0.9 (1.1-2.2) L 04/19/18 10:21 - Microbiology Findings Microbiology Findings: Microbiology, Last 48 Hours 04/17/18 09:11 Blood Culture - Preliminary Peripheral Venipuncture Culture is incubating and being continuously monitored for growth. Final report to follow. 04/17/18 09:11 Blood Culture - Preliminary Peripheral Venipuncture Culture is incubating and being continuously monitored for growth. Final report to follow. - Diagnostic Findings CT scan - chest: report reviewed, image reviewed - Clinical Findings Intake & Output: Intake & Output 04/19/18 04/19/18 04/19/18 07:59 15:59 23:59 Intake Total 100 / 100 1660 / 1660 Output Total 300 / 300 600 / 600 Balance -200 / -200 1060 / 1060 Weight 75.9 kg Consult Discharge Plan - Plan Referrals: Sy Beaver DO [Primary Care Provider] -
[2018-04-19] MEDS: predniSONE 20 MG TABLET PO SCH (17:36)
[2018-04-19] MEDS: Budesonide/Formoterol 160/4.5 1 PUFF INH IH SCH (19:58)
[2018-04-19] MEDS: Insulin DETEMIR 100 UNIT/ML X5UNITS SQ SCH (20:39)
[2018-04-20] MEDS: Ipratropium/Albuterol Neb 3 ML IH SCH ×6 (03:49→23:50)
[2018-04-20] MEDS: HYDROcodone BIT/Homatropine LQ 5 MG/5 ML UDC PO SCH ×4 (05:35→22:15)
[2018-04-20] MEDS: Sucralfate 1 GM TABLET PO SCH ×4 (06:22→22:15)
[2018-04-20] MEDS: Budesonide/Formoterol 160/4.5 1 PUFF INH IH SCH ×2 (07:51→19:58)
[2018-04-20] MEDS: Azithromycin 250 MG TABLET PO SCH (08:12)
[2018-04-20] MEDS: predniSONE 20 MG TABLET PO SCH ×2 (08:12→18:25)
[2018-04-20] MEDS: Furosemide 20 MG TABLET PO SCH ×2 (08:12→18:26)
[2018-04-20] MEDS: *HR* LORazepam 1 MG TABLET PO SCH ×4 (08:12→19:59)
[2018-04-20] MEDS: Insulin LISPRO 300 UNITS/3 ML VIAL SQ SCH ×7 (08:13→20:01)
[2018-04-20 10:22] LABS: Eosinophils % 0.2 %; Mean Platelet Volume 9.6 fL (9.4-12.4); Red Cell Distribution Width 14.8 % (11.5-14.5)
[2018-04-20 10:24] LABS: Hematocrit 27.1 % (35.3-44.9); Immature Granulocytes % 0.6 % (0-4); Immature Platelets 1.7 % (1.1-6.1); Lymphocytes # 0.3 K/mcL (0.6-4.6); Lymphocytes % 5.7 %; Mean Corpuscular HGB Conc 33.2 g/dL (31.6-35.5); Mean Corpuscular Volume 90.3 fL (83.0-100.0); Monocytes # 0.3 K/mcL (0.0-1.3); Monocytes % 6.8 %; Neutrophils # 4.1 K/mcL (1.6-8.9); Segmented Neutrophils % 86.7 %
[2018-04-20 10:26] LABS: Platelet Count 90 K/mcL (140-400)
[2018-04-20 10:43] LABS: BUN/Creatinine Ratio 36 (6-26); Blood Urea Nitrogen 36 mg/dL (8-23); Calcium 8.7 mg/dL (8.6-10.3); Carbon Dioxide 29 mEq/L (23-29); Chloride 95 mEq/L (98-107); Glucose 233 mg/dL (70-105); Osmolality,Calculated 280 (280-300); Potassium 4.8 mEq/L (3.5-5.1); Sodium 127 mEq/L (136-145); eGFR For Non-African Americans 53 (> 60)
--- NOTE | 2018-04-20 14:15 | Internal Med Progress Note ---
Hospitalist Progress Note - Encounter Date of Encounter: 04/20/18 Time of Encounter: 14:12 - Subjective Interval History: The patient is doing better but she does get winded on attempted ambulation. - Exam Vitals: Temp Pulse Resp BP Pulse Ox 98.2 F 66 18 111/63 93 04/20/18 11:20 04/20/18 11:20 04/20/18 11:20 04/20/18 11:20 04/20/18 11:20 Exam: GENERAL: Alert, no distress, cooperative NECK: No jugulovenous distention, No carotid bruits, Carotid pulse normal contour, Supple LUNGS: Faint crackles heard at bilateral lower lobes CARDIAC: Normal S1 and S2; no rubs, murmurs, or gallops ABDOMEN: Abdomen soft, non-tender, BS normal, No masses or organomegaly EXTREMITIES: Extremities normal, no deformities, edema, clubbing or skin discoloration. Good capillary refill., No ulcers PULSES: 2+ radial, 2+ carotid Rest of the exam is non contributory - Assessment and Plan (1) Acute bronchiolitis Current Visit: Yes Status: Acute Assessment and Plan: Continue vancomycin and Zosyn. CT scan showing bronchiolitis. Continue steroids. Consider pulmonary consultation given the patient was recently admitted for pneumonia and underwent a total of 8 days of antibiotics. Weaning oxygen 04/20/2018-appreciated pulmonary follow-up. We will continue steroids and Symbicort while in house. Because she is a admission we will most likely been a better position to reassess her tomorrow for discharge. Agree that this could most likely be a viral insult. She is doing better but her lung sounds are concerning. Her exercise tolerance is not the best. She has been offered home health in the past but she has declined it. (2) Thrombocytopenia Current Visit: Yes Status: Chronic Assessment and Plan: Stable. Continue to monitor. No active bleeding (3) GERD (gastroesophageal reflux disease) Current Visit: No Status: Chronic Assessment and Plan: Continue PPI. (4) HTN (hypertension) Current Visit: No Status: Chronic Assessment and Plan: Continue to monitor. Stable (5) Acute respiratory failure with hypoxia Current Visit: Yes Status: Acute Assessment and Plan: Gradually improving. Oxygen being weaned down 04/20-has been weaned off to room air but diminished exercise tolerance. We will keep an house for 1 more day and potential discharge tomorrow - Time Spent with Patient Total time spent is greater than 50% in coordination of care (as documented) at patient's floor/unit and/or counseling patient: 25 - 35 minutes Plan of Care Discussed with: nurse Internal Medicine: Result - Labs CBC & Chem 7: 04/20/18 10:05 04/20/18 10:05 Labs: Short CBC 04/20/18 Range/Units 10:05 WBC 4.7 (4.3-11.1) K/mcL Hgb 9.0 L (11.5-15.4) g/dL Hct 27.1 L (35.3-44.9) % Plt Count 90 L (140-400) K/mcL Neutrophils # 4.1 (1.6-8.9) K/mcL BMP 04/20/18 10:05 Sodium 127 L Potassium 4.8 Chloride 95 L Carbon Dioxide 29 BUN 36 H Creatinine 1.01 Glucose 233 H Calcium 8.7 - ABG Interpretation ABG results: PT/INR, D-dimer PT 14.0 Seconds (9.4-12.1) H 04/17/18 09:11 - VTE Reasons for not Prescribing Prophylaxis: Treatment not Indicated - Low risk for VTE Deep Vein Thrombosis/Pulmonary Embolism Present on Admission: No Consult Discharge Plan - Plan Referrals: Sy Beaver DO [Primary Care Provider] - Prescriptions: Azithromycin [Zithromax] 250 mg PO DAILY 4 Days #4 tablet Budesonide/Formoterol 160/4.5 [Symbicort 160/4.5] 2 puff IH BIDR 30 Days #1 inh predniSONE [PredniSONE] 20 mg PO BIDWM #20 tablet (1) Acute bronchiolitis Qualifiers: Bronchiolitis organism: unspecified organism Qualified Code(s): J21.9 - Acute bronchiolitis, unspecified (3) GERD (gastroesophageal reflux disease) Qualifiers: Esophagitis presence: esophagitis presence not specified Qualified Code(s): K21.9 - Gastro-esophageal reflux disease without esophagitis (4) HTN (hypertension) Qualifiers: Hypertension type: essential hypertension Qualified Code(s): I10 - Essential (primary) hypertension
[2018-04-20] MEDS: Insulin DETEMIR 100 UNIT/ML X5UNITS SQ SCH (20:00)
[2018-04-21] MEDS: Ipratropium/Albuterol Neb 3 ML IH SCH ×3 (03:43→11:13)
[2018-04-21] MEDS: HYDROcodone BIT/Homatropine LQ 5 MG/5 ML UDC PO SCH ×2 (05:51→12:29)
[2018-04-21 07:46] VITALS: BP 137/80
[2018-04-21] MEDS: Budesonide/Formoterol 160/4.5 1 PUFF INH IH SCH (07:49)
[2018-04-21] MEDS: Azithromycin 250 MG TABLET PO SCH (08:27)
[2018-04-21] MEDS: Sucralfate 1 GM TABLET PO SCH ×2 (08:27→12:29)
[2018-04-21] MEDS: predniSONE 20 MG TABLET PO SCH (08:27)
[2018-04-21] MEDS: Insulin LISPRO 300 UNITS/3 ML VIAL SQ SCH ×2 (08:28)
[2018-04-21] MEDS: *HR* LORazepam 1 MG TABLET PO SCH ×2 (08:28→12:29)
[2018-04-21] MEDS: Furosemide 20 MG TABLET PO SCH (08:28)
--- NOTE | 2018-04-21 09:12 | Discharge Summary ---
- NOTES TO OUTPATIENT PROVIDER Notes to Outpatient Provider: Patient has been admitted with bronchiolitis following a bout of pneumonia. She has been started on steroids with a prolonged dosing. She is going to follow-up with pulmonary as an outpatient within a week and she will also need a primary care appointment within 1 week time. We will also complete a course of azithromycin and Symbicort has been added to her regimen Orders not resulted at time of discharge: Pending orders 04/17/18 09:11 Culture,Blood [BC] Stat Date of Encounter: 04/21/18 Time of Encounter: 09:06 - Discharge Diagnosis (1) Acute bronchiolitis Priority: Primary Status: Acute Qualifiers: Bronchiolitis organism: unspecified organism Qualified Code(s): J21.9 - Acute bronchiolitis, unspecified (2) Thrombocytopenia Priority: Secondary Status: Chronic (3) GERD (gastroesophageal reflux disease) Priority: Secondary Status: Chronic Qualifiers: Esophagitis presence: esophagitis presence not specified Qualified Code(s): K21.9 - Gastro-esophageal reflux disease without esophagitis (4) HTN (hypertension) Priority: Secondary Status: Chronic Qualifiers: Hypertension type: essential hypertension Qualified Code(s): I10 - Essential (primary) hypertension (5) Acute respiratory failure with hypoxia Priority: Secondary Status: Acute Hospital course: Patient has been admitted with bronchiolitis following a bout of pneumonia. She has been started on steroids with a prolonged taper dosing . She is going to follow-up with pulmonary as an outpatient within a week and she will also need a primary care appointment within 1 week time. We will also complete a course of azithromycin and Symbicort has been added to her regimen Discharge discussed with: patient, nurse - Time Spent with Patient Total time spent providing and/or coordinating discharge services: 43 minutes - Discharge Medications Prescriptions: Azithromycin [Zithromax] 250 mg PO DAILY 4 Days #4 tablet Budesonide/Formoterol 160/4.5 [Symbicort 160/4.5] 2 puff IH BIDR 30 Days #1 inh predniSONE [PredniSONE] 20 mg PO BIDWM #20 tablet Home Medications: Amitriptyline [Elavil] 40 mg PO HS 07/04/16 [History] Escitalopram [Lexapro] 20 mg PO DAILY 07/04/16 [History] Esomeprazole Magnesium [Nexium] 40 mg PO DAILY 07/04/16 [History] LORazepam [Ativan] 1 mg PO QID 07/04/16 [History] Metoprolol [Lopressor] 25 mg PO BID 07/04/16 [History] Oxycodone HCl/Acetaminophen [Percocet 10-325 mg Tablet] 1 tab PO Q8H PRN 07/04/16 [History] Risedronate Sodium [Actonel] 35 mg PO QWEEK 07/04/16 [History] Simvastatin [Zocor] 20 mg PO HS 07/04/16 [History] Sucralfate [Carafate] 1 gm PO QIDAC 07/04/16 [History] Furosemide [Lasix] 20 mg PO BID #60 tablet 11/16/17 [Rx] Donepezil HCl [Aricept] 10 mg PO DAILY 01/23/18 [History] Lisinopril [Zestril] 10 mg PO DAILY #30 tablet 04/10/18 [Rx] Azithromycin [Zithromax] 250 mg PO DAILY 4 Days #4 tablet 04/20/18 [Rx] Budesonide/Formoterol 160/4.5 [Symbicort 160/4.5] 2 puff IH BIDR 30 Days #1 inh 04/20/18 [Rx] predniSONE [PredniSONE] 20 mg PO BIDWM #20 tablet 04/20/18 [Rx] Allergies/Adverse Reactions: Allergy/AdvReac Type Severity Reaction Status Date / Time haloperidol Allergy Hallucinati Verified 09/09/17 13:46 ng Date of admission: 04/17/18 13:53 Primary care physician: Brayan Beaver DO Consults: 04/19/18 08:06 Consult to Nurse Navigator [CONS] Routine Comment: PNEUMONIA 04/19/18 13:38 Consult to Pulmonology [CONS] Routine Consulting Provider: [facility] Reason for Consult: bronchiolitis. recent admit for CAP- finished total 8 days Abx Time Notified: 13:38 Call Completed: Yes - Constitutional Vitals: Temp Pulse Resp BP Pulse Ox 97.5 F L 62 18 137/80 94 04/21/18 07:32 04/21/18 07:32 04/21/18 07:32 04/21/18 07:32 04/21/18 07:32 General appearance: Present: A&O X 2, answers questions appropriately Exam: GENERAL: Alert, no distress, cooperative NECK: No jugulovenous distention, No carotid bruits, Carotid pulse normal contour, Supple LUNGS: Good air entry bilaterally. CARDIAC: Normal S1 and S2; no rubs, murmurs, or gallops ABDOMEN: Abdomen soft, non-tender, BS normal, No masses or organomegaly EXTREMITIES: Extremities normal, no deformities, edema, clubbing or skin discoloration. Good capillary refill., No ulcers PULSES: 2+ radial, 2+ carotid Rest of the exam is non contributory - Patient Status Disposition: Home, Self-Care Condition: Good Functional capacity at discharge: independent ambulation Overall status at discharge: patient is back to baseline - Discharge Instructions Follow Up With: Sy Beaver DO [Primary Care Provider] - Harmony Montano MD [Partnered Physician] - (an appointment has been requested. the office will contact you at home to set up an appointment ) - Diet and Activity Activity: increase activity as tolerated Diet: advance to your usual diet - VTE Reasons for not Prescribing Prophylaxis: Treatment not Indicated - Low risk for VTE Deep Vein Thrombosis/Pulmonary Embolism Present on Admission: No
== END 2018-04-21 14:10 | disposition home or self-care (01) | DRG 202 ==
LOC: 3BNU 08:54 → EMEROOARM 08:54 → SUATTDRO 13:53 → OBSVTOIN 13:53 → 3BNU 14:42
PROVIDERS: ADMIT Student in an Organized Health Care Education/Training Program; ATTEND Internal Medicine

== ENCOUNTER 2018-07-09 18:28 | Inpatient (IN) ==
[2018-07-09] MEDS ORDERED: Ipratropium/Albuterol Neb 3 ML IH ONE (19:00)
[2018-07-09] MEDS ORDERED: methylPREDNISolone 125 MG/2 ML VIAL IVP ONE (19:00)
[2018-07-09 19:06] LABS: Bilirubin,Urine Negative (Negative); Blood,Urine Negative (Negative); Clarity,Urine Clear (Clear); Color,Urine Yellow (Yellow); Glucose,Urine (UA) Normal (Normal); Ketones,Urine Negative (Negative); Leukocyte Esterase,Urine Negative (Negative); Nitrite,Urine Negative (Negative); Protein,Urine Negative (Neg-Trace); Specific Gravity,Urine 1.015 (1.010-1.025); Urobilinogen,Urine Normal (Normal)
--- NOTE | 2018-07-09 19:15 | Emergency Department Note ---
Disposition Clinical Impression: Fall Qualifiers: Encounter type: initial encounter Qualified Code(s): W19.XXXA - Unspecified fall, initial encounter Dementia Qualifiers: Dementia type: unspecified type Dementia behavioral disturbance: without behavioral disturbance Qualified Code(s): F03.90 - Unspecified dementia without behavioral disturbance Disposition: Home, Self-Care Condition: Fair Instructions: Fall Prevention for Older Adults (ED) Reasons to Return/Additional Instructions: Please follow closely with your primary care provider. Please take all medications as they are prescribed. If you are concerned about your medical condition or if your symptoms change please return immediately to the emergency room for repeat evaluation. Please follow the return precautions that were disc ussed in great detail here in the emergency room prior to you being discharged home. Please take all of your home medications as they are prescribed. Referrals: Sy Beaver DO [Primary Care Provider] - Forms: ED Satisfaction Letter Time of Disposition: 21:33 Fall HPI - General Chief Complaint: ED Fall Stated Complaint: KAYLA, AMS Time Seen by Provider: 07/09/18 18:33 Source: family Mode of arrival: EMS Limitations: altered mental status Nursing Notes Reviewed: Yes Vital Signs Reviewed: Yes - History of Present Illness HPI Narrative: Patient presents emergency room by EMS for evaluation of a fall at home. Patient can account for all the events today. She said that she tripped and fell secondary to describe near syncopal event after going to the bathroom. Patient denies any closed head injury or trauma. Patient is alert and oriented transport. She did have coarse wheezing bilaterally noted on EMS evaluation breathing treatments were provided. Family is concerned because she is acting more confused. She does have a history of getting urinary tract infections causing similar symptoms. No other complaints or issues prior to transportation Accu-Chek was normal. Pt Subjective Complaint: fall Onset (ago): Just [employer] Fall From: standing Fall Witnessed: no Place Fall Occurred: home Loss of Consciousness: unsure Prolonged Down Time?: no Symptoms Prior to Fall: lightheadedness, dizziness Context: tripped/slipped Severity: mild Severity scale (1-10): 0 Associated symptoms (after fall): Reports: denies - Related Data Home Medications Medication Instructions Recorded Confirmed Amitriptyline [Elavil] 40 mg PO HS 07/04/16 04/17/18 Escitalopram [Lexapro] 20 mg PO DAILY 07/04/16 04/17/18 Esomeprazole Magnesium [Nexium] 40 mg PO DAILY 07/04/16 04/17/18 LORazepam [Ativan] 1 mg PO QID 07/04/16 04/17/18 Metoprolol [Lopressor] 25 mg PO BID 07/04/16 04/17/18 Oxycodone HCl/Acetaminophen 1 tab PO Q8H PRN 07/04/16 04/17/18 [Percocet 10-325 mg Tablet] Risedronate Sodium [Actonel] 35 mg PO QWEEK 07/04/16 04/17/18 Simvastatin [Zocor] 20 mg PO HS 07/04/16 04/17/18 Sucralfate [Carafate] 1 gm PO QIDAC 07/04/16 04/17/18 Donepezil HCl [Aricept] 10 mg PO DAILY 01/23/18 04/17/18 Previous Rx's Medication Instructions Recorded Furosemide [Lasix] 20 mg PO BID #60 tablet 11/16/17 Lisinopril [Zestril] 10 mg PO DAILY #30 tablet 04/10/18 Budesonide/Formoterol 160/4.5 2 puff IH BIDR 30 Days #1 inh 04/20/18 [Symbicort 160/4.5] predniSONE [PredniSONE] 20 mg PO BIDWM #20 tablet 04/20/18 Allergies Allergy/AdvReac Type Severity Reaction Status Date / Time haloperidol Allergy Hallucinati Verified 09/09/17 13:46 ng All systems ED: reviewed and negative except as stated. Review of Systems: As Per HPI Constitutional: Denies: fever, chills, weakness ENT ED: Denies: throat pain, epistaxis, congestion Cardiovascular: Denies: chest pain, palpitations, dyspnea on exertion Respiratory: Denies: cough, dyspnea, wheezes Gastrointestinal: Denies: abdominal pain, nausea, vomiting, diarrhea Genitourinary: Denies: urgency, dysuria, frequency Musculoskeletal: Denies: back pain, neck pain Integumentary: Denies: rash Neurological: Denies: headache Allergic/Immunologic: Denies: facial swelling Fall PMH - Past Medical History Medical history: Reports: cirrhosis, dementia, diabetes, GERD, hyperlipidemia, hypertension, other Surgical history: Reports: hysterectomy Psychiatric history: Reports: depression 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 Absent: miosis, mydriasis - ENT ENT exam: normal exam, normal oropharynx, mucous membranes moist - Neck Neck exam: Present: normal inspection, full ROM, trachea midline - Chest Chest inspection: Present: normal inspection, symmetric chest wall rise. Absent: tenderness - Respiratory Respiratory exam: Present: normal lung sounds bilaterally - Cardiovascular Cardiovascular exam: Present: regular rate, normal rhythm, normal heart sounds - Abdominal Exam Abdominal exam: Present: soft, Non-Tender, normal bowel sounds. Absent: tenderness, distention, guarding, rebound, rigidity, Cornelius's sign, Rovsing's sign, tenderness at McBurney's Point - Extremities Exam Extremities exam: Present: normal inspection, full ROM, normal capillary refill. Absent: tenderness - Back Exam Back exam: Present: normal inspection, full ROM. Absent: tenderness - Neurological Exam Neurological exam: Present: alert, CN II-XII intact, normal gait - Psychiatric Psychiatric exam: Present: normal affect, normal mood - Skin Skin exam: Present: warm, dry, intact, normal color Course Course Narrative: Patient seen and examined the time of arrival. See history of present illness. 77-year-old female presents emergency room with a witnessed mechanical fall home. Patient is in the care of the [id number] and son. Patient has dementia at baseline. She was walking across a room and slipped falling backwards hitting her back on a chair. She did not lose consciousness or hit her head. Denied any other symptoms or complaints prior to the events. Patient by EMS acting appropriately. She is answering questions. She knew where she was. She denies any pain or symptoms or complaints at that time. Head is atraumatic. She denies any chest pain or shortness of breath. Denies any nausea vomiting diarrhea. Denies any fevers or chills. No headache no vision change at this time. No other trauma or injuries noted. Patient has no specific history of bleeding. Pupils are equal round reactive. Neck shock the muscles are intact. Patient has no pain with movement of the neck. She has no midline cervical thoracic or lumbar spine tenderness. Oropharynx is patent. Chest wall is stable with clear lungs. deformity or injury noted. Heart is regular. Abdomen is soft. Extremities appear to be normal no signs of bruising trauma or injury. Pelvis is stable. Patient has no complaints during my evaluation. She is pleasantly demented but does answer questions appropriately and does not appear to be answering things inappropriately in the context of the presentation. The son did arrive to the bedside confirmed all the describes symptoms. He is not concerned about any other issues outside of traumatic injury. CT imaging of the head on chest x-ray EKG CBC chemistry troponin and labs were collected looking for potential infectious etiology. The son does confirm this is her baseline mentation and if all the symptoms are negative he feels comfortable with her going home. Patient was symptomatically controlled evaluation established and disposition determined. - Reevaluation(s) Reevaluation #1: CT imaging of the head is unremarkable. Chest x-ray stable. Labs appear to be at baseline. Chemistry panel still pending. Patient is otherwise in no distress and is been eating well here in the emergency department. Patient will be discharged home in the care of the family once the chemistry panels have been resulted. No other acute concerns or issues noted at this time. Time: 21:31 Reevaluation #2: Patient's chemistry panel shows stable sodium. Potassium fluctuates greatly in the past and 3.00 around the patient's median. She will not be intervened upon at this time will be recommended to continue with her potassium intake at home. Patient otherwise has no other acute arrangements that require further workup or treatment here in the emergency department. Patient is otherwise stable. She will be discharged home in good medical condition in the care of the family with chronic issues and a mechanical fall. Time: 21:52 Vital Signs Temperature 98.8 F 07/09/18 18:32 Pulse Rate 81 07/09/18 18:32 Respiratory Rate 16 07/09/18 18:32 Blood Pressure 135/83 07/09/18 18:32 O2 Sat by Pulse Oximetry 96 07/09/18 18:32 Temperature 98.8 F 07/09/18 18:32 Pulse Rate 106 07/09/18 20:39 Respiratory Rate 18 07/09/18 20:39 Blood Pressure 146/82 07/09/18 20:39 O2 Sat by Pulse Oximetry 94 07/09/18 20:39 Oxygen Delivery Oxygen Delivery Nasal Cannula Fall - MDM Narrative Medical decision making narrative: Fall, dementia - Medical Records Medical records reviewed: Yes I reviewed the patient's medical records. - Lab Data Lab results reviewed: Yes I reviewed the patient's lab results. Result diagrams: 07/09/18 19:59 07/09/18 19:59 Lab Results 07/09/18 07/09/18 07/09/18 Range/Units 18:54 18:54 19:59 WBC 9.5 (4.3-11.1) K/mcL RBC 3.68 L (3.82-4.97) M/mcL Hgb 10.7 L (11.5-15.4) g/dL Hct 32.0 L (35.3-44.9) % MCV 87.0 (83.0-100.0) fL MCH 29.1 (28.0-33.3) pg MCHC 33.4 (31.6-35.5) g/dL RDW 14.3 (11.5-14.5) % Plt Count 115 L (140-400) K/mcL MPV 9.9 (9.4-12.4) fL Immature Gran % 0.3 (0-4) % Seg Neutrophils % 86.1 % Lymphocytes % 5.8 % Monocytes % 7.2 % Eosinophils % 0.3 % Basophils % 0.3 % Neutrophils # 8.1 (1.6-8.9) K/mcL Lymphocytes # 0.6 (0.6-4.6) K/mcL Monocytes # 0.7 (0.0-1.3) K/mcL Eosinophils # 0.0 (0.0-0.6) K/mcL Basophils # 0.0 (0.0-0.2) K/mcL PT (9.4-12.1) Seconds INR APTT (26.0-36.0) Seconds Sodium (136-145) mEq/L Potassium (3.5-5.1) mEq/L Chloride (98-107) mEq/L Carbon Dioxide (23-29) mEq/L BUN (8-23) mg/dL Creatinine (0.60-1.20) mg/dL Est GFR ( Amer) (> 60) Est GFR (Non-Af Amer) (> 60) BUN/Creatinine Ratio (6-26) Glucose (70-105) mg/dL Calculated Osmolality (280-300) Calcium (8.6-10.3) mg/dL Total Bilirubin (0.3-1.0) mg/dL Direct Bilirubin (0.0-0.2) mg/dL Indirect Bilirubin (0.0-1.2) mg/dL AST (13-39) Units/L ALT (7-52) Units/L Alkaline Phosphatase (34-104) Units/L Troponin I (< 0.04) ng/mL Serum Total Protein (6.4-8.9) g/dL Albumin (3.5-5.7) g/dL Globulin (2.4-3.5) g/dL Albumin/Globulin Ratio (1.1-2.2) TSH (0.340-5.600) mcIU/mL Urine Color Yellow (Yellow) Urine Clarity Clear (Clear) Urine pH 6.0 (5.0-8.0) pH Units Ur Specific [place] 1.015 (1.010-1.025) Urine Protein Negative (Neg-Trace) mg/dL Urine Glucose (UA) Normal (Normal) mg/dL Urine Ketones Negative (Negative) mg/dL Urine Blood Negative (Negative) Urine Nitrite Negative (Negative) Urine Bilirubin Negative (Negative) Urine Urobilinogen Normal (Normal) mg/dL Ur Leukocyte Esterase Negative (Negative) Ur Culture Indicated? NO (NO) Urine Opiates Screen Negative (Bvmibm=252) ng/mL Ur Barbiturates Screen Negative (Gafnje=325) ng/mL Ur Phencyclidine Scrn Negative (Cutoff=25) ng/mL Ur Amphetamines Screen Negative (Vpxuxa=4909) ng/mL U Benzodiazepines Scrn Negative (Dhaghl=840) ng/mL Urine Cocaine Screen Negative (Cutoff= 300) ng/mL U Marijuana (THC) Screen Negative (Cutoff = 50) ng/mL Ur Drug Screen Interp See Below Specimen Rejected 07/09/18 07/09/18 07/09/18 Range/Units 19:59 19:59 19:59 WBC (4.3-11.1) K/mcL RBC (3.82-4.97) M/mcL Hgb (11.5-15.4) g/dL Hct (35.3-44.9) % MCV (83.0-100.0) fL MCH (28.0-33.3) pg MCHC (31.6-35.5) g/dL RDW (11.5-14.5) % Plt Count (140-400) K/mcL MPV (9.4-12.4) fL Immature Gran % (0-4) % Seg Neutrophils % % Lymphocytes % % Monocytes % % Eosinophils % % Basophils % % Neutrophils # (1.6-8.9) K/mcL Lymphocytes # (0.6-4.6) K/mcL Monocytes # (0.0-1.3) K/mcL Eosinophils # (0.0-0.6) K/mcL Basophils # (0.0-0.2) K/mcL PT 15.6 H (9.4-12.1) Seconds INR 1.4 APTT 32.4 (26.0-36.0) Seconds Sodium 133 L (136-145) mEq/L Potassium 3.0 L (3.5-5.1) mEq/L Chloride 97 L (98-107) mEq/L Carbon Dioxide 24 (23-29) mEq/L BUN 13 (8-23) mg/dL Creatinine 0.79 (0.60-1.20) mg/dL Est GFR ( Amer) > 60 (> 60) Est GFR (Non-Af Amer) > 60 (> 60) BUN/Creatinine Ratio 16 (6-26) Glucose 137 H (70-105) mg/dL Calculated Osmolality 278 L (280-300) Calcium 8.7 (8.6-10.3) mg/dL Total Bilirubin 1.1 H (0.3-1.0) mg/dL Direct Bilirubin 0.4 H (0.0-0.2) mg/dL Indirect Bilirubin 0.7 (0.0-1.2) mg/dL AST 32 (13-39) Units/L ALT 16 (7-52) Units/L Alkaline Phosphatase 101 (34-104) Units/L Troponin I < 0.03 (< 0.04) ng/mL Serum Total Protein 6.4 (6.4-8.9) g/dL Albumin 3.1 L (3.5-5.7) g/dL Globulin 3.3 (2.4-3.5) g/dL Albumin/Globulin Ratio 0.9 L (1.1-2.2) TSH 1.464 (0.340-5.600) mcIU/mL Urine Color (Yellow) Urine Clarity (Clear) Urine pH (5.0-8.0) pH Units Ur Specific [place] (1.010-1.025) Urine Protein (Neg-Trace) mg/dL Urine Glucose (UA) (Normal) mg/dL Urine Ketones (Negative) mg/dL Urine Blood (Negative) Urine Nitrite (Negative) Urine Bilirubin (Negative) Urine Urobilinogen (Normal) mg/dL Ur Leukocyte Esterase (Negative) Ur Culture Indicated? (NO) Urine Opiates Screen (Gzrlne=262) ng/mL Ur Barbiturates Screen (Qbulrz=356) ng/mL Ur Phencyclidine Scrn (Cutoff=25) ng/mL Ur Amphetamines Screen (Ysiimn=3580) ng/mL U Benzodiazepines Scrn (Zblwyg=704) ng/mL Urine Cocaine Screen (Cutoff= 300) ng/mL U Marijuana (THC) Screen (Cutoff = 50) ng/mL Ur Drug Screen Interp Specimen Rejected Accident 07/09/18 Range/Units 19:59 WBC (4.3-11.1) K/mcL RBC (3.82-4.97) M/mcL Hgb (11.5-15.4) g/dL Hct (35.3-44.9) % MCV (83.0-100.0) fL MCH (28.0-33.3) pg MCHC (31.6-35.5) g/dL RDW (11.5-14.5) % Plt Count (140-400) K/mcL MPV (9.4-12.4) fL Immature Gran % (0-4) % Seg Neutrophils % % Lymphocytes % % Monocytes % % Eosinophils % % Basophils % % Neutrophils # (1.6-8.9) K/mcL Lymphocytes # (0.6-4.6) K/mcL Monocytes # (0.0-1.3) K/mcL Eosinophils # (0.0-0.6) K/mcL Basophils # (0.0-0.2) K/mcL PT (9.4-12.1) Seconds INR APTT (26.0-36.0) Seconds Sodium (136-145) mEq/L Potassium (3.5-5.1) mEq/L Chloride (98-107) mEq/L Carbon Dioxide (23-29) mEq/L BUN (8-23) mg/dL Creatinine (0.60-1.20) mg/dL Est GFR ( Amer) (> 60) Est GFR (Non-Af Amer) (> 60) BUN/Creatinine Ratio (6-26) Glucose (70-105) mg/dL Calculated Osmolality (280-300) Calcium (8.6-10.3) mg/dL Total Bilirubin (0.3-1.0) mg/dL Direct Bilirubin (0.0-0.2) mg/dL Indirect Bilirubin (0.0-1.2) mg/dL AST (13-39) Units/L ALT (7-52) Units/L Alkaline Phosphatase (34-104) Units/L Troponin I (< 0.04) ng/mL Serum Total Protein (6.4-8.9) g/dL Albumin (3.5-5.7) g/dL Globulin (2.4-3.5) g/dL Albumin/Globulin Ratio (1.1-2.2) TSH (0.340-5.600) mcIU/mL Urine Color (Yellow) Urine Clarity (Clear) Urine pH (5.0-8.0) pH Units Ur Specific [place] (1.010-1.025) Urine Protein (Neg-Trace) mg/dL Urine Glucose (UA) (Normal) mg/dL Urine Ketones (Negative) mg/dL Urine Blood (Negative) Urine Nitrite (Negative) Urine Bilirubin (Negative) Urine Urobilinogen (Normal) mg/dL Ur Leukocyte Esterase (Negative) Ur Culture Indicated? (NO) Urine Opiates Screen (Nahgmu=326) ng/mL Ur Barbiturates Screen (Dkwshc=707) ng/mL Ur Phencyclidine Scrn (Cutoff=25) ng/mL Ur Amphetamines Screen (Opdsws=8935) ng/mL U Benzodiazepines Scrn (Mdpgsk=216) ng/mL Urine Cocaine Screen (Cutoff= 300) ng/mL U Marijuana (THC) Screen (Cutoff = 50) ng/mL Ur Drug Screen Interp Specimen Rejected Accident - Radiology Data Radiology results reviewed: Yes I reviewed the patient's radiology results. Chest x-ray is unremarkable. CT imaging the head is negative. - EKG Data EKG attestation: Yes I reviewed and interpreted this EKG. EKG results narrative: EKG shows apparent sinus rhythm. Stable left bundle branch block. Heart rate of 81. [place] interval appears to be normal. QRS duration 167. QTC of 529. [place] appears to be normal. No acute signs of ST segment elevation or abnormality. Previous EKG from 04/17/18 has stable similar morphology with no acute changes.
[2018-07-09 19:16] LABS: Amphetamine Screen,Urine Negative ng/mL (Cutoff=1000); Barbiturate Screen,Urine Negative ng/mL (Cutoff=200); Benzodiazepines Screen,Urine Negative ng/mL (Cutoff=200); Cannabinoid Screen,Urine Negative ng/mL (Cutoff = 50); Cocaine Screen,Urine Negative ng/mL (Cutoff= 300); Opiate Screen,Urine Negative ng/mL (Cutoff=300); Phencyclidine Screen,Urine Negative ng/mL (Cutoff=25)
[2018-07-09 20:11] LABS: Basophils % 0.3 %; Eosinophils % 0.3 %; Hemoglobin 10.7 g/dL (11.5-15.4); Immature Granulocytes % 0.3 % (0-4); Lymphocytes # 0.6 K/mcL (0.6-4.6); Lymphocytes % 5.8 %; Mean Corpuscular HGB Conc 33.4 g/dL (31.6-35.5); Mean Corpuscular Hemoglobin 29.1 pg (28.0-33.3); Mean Platelet Volume 9.9 fL (9.4-12.4); Monocytes # 0.7 K/mcL (0.0-1.3); Monocytes % 7.2 %; Neutrophils # 8.1 K/mcL (1.6-8.9); Platelet Count 115 K/mcL (140-400); Red Blood Count 3.68 M/mcL (3.82-4.97); Red Cell Distribution Width 14.3 % (11.5-14.5); Segmented Neutrophils % 86.1 %
[2018-07-09 20:20] LABS: INR 1.4; Prothrombin Time 15.6 Seconds (9.4-12.1)
[2018-07-09 20:23] LABS: Activated Partial Thrombo Time 32.4 Seconds (26.0-36.0)
[2018-07-09 21:27] LABS: Troponin I < 0.03 ng/mL (< 0.04)
[2018-07-09 21:41] LABS: Alanine Aminotransferase 16 Units/L (7-52); Albumin 3.1 g/dL (3.5-5.7); Albumin/Globulin Ratio 0.9 (1.1-2.2); Alkaline Phosphatase 101 Units/L (34-104); Aspartate Amino Transferase 32 Units/L (13-39); BUN/Creatinine Ratio 16 (6-26); Bilirubin,Direct 0.4 mg/dL (0.0-0.2); Bilirubin,Indirect 0.7 mg/dL (0.0-1.2); Bilirubin,Total 1.1 mg/dL (0.3-1.0); Blood Urea Nitrogen 13 mg/dL (8-23); Calcium 8.7 mg/dL (8.6-10.3); Carbon Dioxide 24 mEq/L (23-29); Chloride 97 mEq/L (98-107); Globulin 3.3 g/dL (2.4-3.5); Glucose 137 mg/dL (70-105); Osmolality,Calculated 278 (280-300); Sodium 133 mEq/L (136-145); Thyroid Stimulating Hormone 1.464 mcIU/mL (0.340-5.600); Total Protein 6.4 g/dL (6.4-8.9); eGFR For Non-African Americans > 60 (> 60)
[2018-07-09] MEDS ORDERED: *HR* LORazepam 2 MG/ML VIAL IVP ONE (22:14)
[2018-07-09] MEDS ORDERED: Levofloxacin 750 MG/150 ML 750 MG/150 ML BAG IVPB ONE (22:15)
[2018-07-09] MEDS ORDERED: 0.9 % Sodium Chloride 1,000 ML IVC ONE (23:59)
[2018-07-10 00:39] LABS: ABG Base Excess 3 mEq/L (-2 to 3); ABG HCO3 27 mEq/L (21-27); ABG Oxygen Saturation 97 % (95-98); ABG PCO2 37 mmHg (35-45); ABG PH 7.46 pH Units (7.32-7.45); ABG PO2 80 mmHg (85-104); ABG TCO2 28 mEq/L (20-26)
[2018-07-10] MEDS ORDERED: 0.9 % Sodium Chloride 1,000 ML IVC ONE (00:52)
[2018-07-10] MEDS ORDERED: Naloxone 0.4 MG/ML INJ IVP PRN (01:29)
[2018-07-10] MEDS ORDERED: *HR* Dextrose 50 % in Water (Syg) 50 ML SYRINGE IVP PRN (02:17)
[2018-07-10] MEDS ORDERED: Dextrose Gel 15 GM/37.5 ML TUBE PO PRN ×2 (02:17)
[2018-07-10] MEDS ORDERED: D5% in Water 1,000 ML IVC PRN (02:17)
--- NOTE | 2018-07-10 02:35 | Internal Med History&Physical ---
Date of Encounter: 07/10/18 Time of Encounter: 02:32 Internal Medicine - H&P: HPI Chief complaint: Fall/dyspnea Admitted From: Emergency Dept Plans for Post Hospital Care: Home History of present illness: Ms. Nieto is a 77 year old female with history of dementia, hypertension presented with shortness of breath and cough as well as a fall. Patient is somewhat of a poor historian and there is no family at bedside. She states that she had a fall. She states that she feels like she tripped over the dog's. She denies any loss of consciousness or hitting her head. She also reports increasing shortness of breath over the last several days. She reports her cough with productive brown sputum. She states she has never had anything like this before. She denies any fevers or chills. She feels like she is getting worse. Patient has baseline dementia and does not have the capacity this time to discuss CODE STATUS. Patient will remain full code Past Med Surg Social Fam HX - Past Medical History Medical history: cirrhosis, dementia, diabetes, GERD, hyperlipidemia, hypertension, other Additional medical history: stomach ulcers, hiatel hernia, metal plate in head, UTI's Psychiatric history: depression - Past Surgical History Surgical History: hysterectomy Additional surgical history: family states "sx for bleeding ulcer" - Social History Smoking Status: Never smoker Smokeless Tobacco Status: No Alcohol use: unknown Drug use: none - Family History Sister Adopted: No Family Member Ethnicity: Non- Living Status: Hx Family Cardiac Disorders: Yes (Brain aneurysm) Hx Family Respiratory Disorders: No Hx Family Cancer: No Hx Family GI Disorders: No Hx Family Endocrine Disorder: No Hx Family Neuromuscular Disorders: No Hx Family Neurologic Disorders: No Hx Family HEENT Disorders: No Hx Family Autoimmune Disorders: No Brother Family Member Ethnicity: Non- Living Status: Hx Family Cardiac Disorders: Yes (HF, CAD) Mother Family Member Ethnicity: Non- Living Status: Hx Family Cardiac Disorders: Yes (HF, CAD, HTN) Father Family Member Ethnicity: Non- Living Status: Hx Family GI Disorders: Yes (Bleeding ulcers) Internal Medicine - H&P: Meds Amitriptyline [Elavil] 40 mg PO HS 07/04/16 [History] Escitalopram [Lexapro] 20 mg PO DAILY 07/04/16 [History] Esomeprazole Magnesium [Nexium] 40 mg PO DAILY 07/04/16 [History] LORazepam [Ativan] 1 mg PO QID 07/04/16 [History] Metoprolol [Lopressor] 25 mg PO BID 07/04/16 [History] Oxycodone HCl/Acetaminophen [Percocet 10-325 mg Tablet] 1 tab PO Q8H PRN 07/04/16 [History] Risedronate Sodium [Actonel] 35 mg PO QWEEK 07/04/16 [History] Simvastatin [Zocor] 20 mg PO HS 07/04/16 [History] Sucralfate [Carafate] 1 gm PO QIDAC 07/04/16 [History] Furosemide [Lasix] 20 mg PO BID #60 tablet 11/16/17 [Rx] Donepezil HCl [Aricept] 10 mg PO DAILY 01/23/18 [History] Lisinopril [Zestril] 10 mg PO DAILY #30 tablet 04/10/18 [Rx] Budesonide/Formoterol 160/4.5 [Symbicort 160/4.5] 2 puff IH BIDR 30 Days #1 inh 04/20/18 [Rx] predniSONE [PredniSONE] 20 mg PO BIDWM #20 tablet 04/20/18 [Rx] Allergy/AdvReac Type Severity Reaction Status Date / Time haloperidol Allergy Hallucinati Verified 09/09/17 13:46 ng All Systems PM: A 10-system review of systems was performed and is negative for pertinent findings except as documented above in the HPI. Review of systems: 10 point review systems was obtained and negative but stated: - Constitutional Constitutional: falls, no chills, no fever(s) - Cardiovascular Cardiovascular ROS IM: no chest pain - Respiratory Respiratory: cough, chest congestion, excessive phlegm production, change in phlegm color - Gastrointestinal Gastrointestinal: no abdominal pain, no nausea, no vomiting - Constitutional Vitals: Temp Pulse Resp BP Pulse Ox 100.1 F H 87 18 107/42 94 07/10/18 02:00 07/10/18 02:00 07/10/18 02:00 07/10/18 02:00 07/10/18 02:00 General appearance: Present: A&O X 2 Exam: Mild respiratory distress - Head Head exam: Present: atraumatic, normal inspection, normocephalic - Eye Eye exam: Present: EOMI, PERRL - ENT ENT exam: Present: mucous membranes moist - Respiratory Respiratory exam: Present: respiratory distress (Mild), rhonchi (Diffuse), wheezes (Scattered end expiratory), tachypnea. Absent: rales - Cardiovascular Cardiovascular exam: Present: RRR. Absent: gallop, rubs, systolic murmur - GI/Abdominal GI/Abdominal exam: Present: normal bowel sounds, soft. Absent: distended, tenderness - Extremities Exam Extremities exam: Present: warm. Absent: pedal edema, tenderness - Neurological Exam Neurological exam: Present: alert, altered (Per ER report family states this is baseline), no focal deficits. Absent: oriented X3, facial droop, speech deficit - Psychiatric Psychiatric exam: Present: normal affect, normal mood - Skin Skin exam: Present: dry, intact, warm Internal Med - H&P Results - Labs CBC & Chem 7: 07/09/18 19:59 07/09/18 19:59 Labs: Short CBC 07/09/18 Range/Units 19:59 WBC 9.5 (4.3-11.1) K/mcL Hgb 10.7 L (11.5-15.4) g/dL Hct 32.0 L (35.3-44.9) % Plt Count 115 L (140-400) K/mcL Neutrophils # 8.1 (1.6-8.9) K/mcL BMP 07/09/18 19:59 Sodium 133 L Potassium 3.0 L Chloride 97 L Carbon Dioxide 24 BUN 13 Creatinine 0.79 Glucose 137 H Calcium 8.7 Cardiac Enzymes 07/09/18 Range/Units 19:59 Troponin I < 0.03 (< 0.04) ng/mL Liver Function 07/09/18 Range/Units 19:59 Total Bilirubin 1.1 H (0.3-1.0) mg/dL Direct Bilirubin 0.4 H (0.0-0.2) mg/dL AST 32 (13-39) Units/L ALT 16 (7-52) Units/L Alkaline Phosphatase 101 (34-104) Units/L Albumin 3.1 L (3.5-5.7) g/dL Urine 07/09/18 Range/Units 18:54 Urine Color Yellow (Yellow) Urine Clarity Clear (Clear) Urine pH 6.0 (5.0-8.0) pH Units Ur Specific [place] 1.015 (1.010-1.025) Urine Protein Negative (Neg-Trace) mg/dL Urine Glucose (UA) Normal (Normal) mg/dL - ABG Interpretation ABG results: 07/10/18 00:34 ABG pH 7.46 H ABG pCO2 37 ABG pO2 80 L ABG HCO3 27 ABG Total CO2 28 H ABG O2 Saturation 97 ABG Base Excess 3 - Impressions ITS Impressions Chest X-Ray 07/09/18 18:59 IMPRESSION: Infiltrates within the right lung. D/ / Dion Samuels MD / Dion Samuels MD Interpreting Provider: Dion Samuels MD Head CT 07/09/18 18:59 IMPRESSION: No acute intracranial abnormality. Chronic small ischemic disease. Moderate to severe paranasal sinuses with multiple air-fluid levels can be seen with acute bacterial sinusitis in the appropriate clinical setting. Please correlate with exam findings and consider treatment as clinically warranted. D/ / Sam Hernandez / Sam Hernandez Interpreting Provider: Sam Hernandez - Assessment and Plan (1) Sepsis Current Visit: No Status: Acute Assessment and plan: Patient presents with tachycardia and tachypnea with presumed source to be pneumonia. Urosepsis with elevated lactic acid and hypotensive that is responsive to fluids. Blood cultures have been drawn, we will recheck lactic acid. Antibiotics initiated. Continuing with 30 mL/kg of IV fluids. Qualifiers: Sepsis type: sepsis due to unspecified organism Qualified Code(s): A41.9 - Sepsis, unspecified organism (2) Acute respiratory failure Current Visit: No Status: Acute Assessment and plan: Secondary to pneumonia. Require supplemental oxygen. Was on BiPAP in the ER but no longer requiring it. ABG shows no hypercapnia. Continue oxygen, wean as tolerated to maintain an oxygen saturation greater than 88%. Unclear if the patient has COPD reviewed previous pulmonary consultation who feels there may be a component of reactive airway versus COPD/asthma. Does have wheezing present so we will treat with scheduled bronchodilators and Solu-Medrol 40 every 12. Qualifiers: Respiratory failure complication: hypoxia Qualified Code(s): J96.01 - Acute respiratory failure with hypoxia (3) Pneumonia Current Visit: Yes Status: Acute Assessment and plan: Chest x-ray today reveals a right lower lobe pneumonia. We will treat for community acquired pneumonia with Levaquin 750 daily. Check respiratory infection panel, strep and Legionella urinary antigen, sputum culture. Qualifiers: Pneumonia type: due to unspecified organism Laterality: right Lung location: lower lobe of lung Qualified Code(s): J18.1 - Lobar pneumonia, unspecified organism (4) Fall Current Visit: Yes Status: Acute Assessment and plan: Appears mechanical in nature. No loss of consciousness. No injury noted. Qualifiers: Encounter type: initial encounter Qualified Code(s): W19.XXXA - Unspecified fall, initial encounter (5) Dementia Current Visit: Yes Status: Chronic Assessment and plan: Per family report patient is baseline. Closely monitor for delirium. Qualifiers: Dementia type: unspecified type Dementia behavioral disturbance: without behavioral disturbance Qualified Code(s): F03.90 - Unspecified dementia without behavioral disturbance (6) Hyponatremia Current Visit: No Status: Chronic Assessment and plan: Mild. Asymptomatic. Appears chronic for patient. Recheck sodium in the morning after fluid boluses. (7) Hypokalemia Current Visit: No Status: Resolved Assessment and plan: Potassium 3.0 on presentation. Did receive 40 mEq in the ER. We will give another 40 mEq by mouth. Recheck potassium and magnesium in the morning. (8) Cirrhosis Current Visit: No Status: Acute Assessment and plan: Etiology unclear. Appears well compensated. Qualifiers: Hepatic cirrhosis type: unspecified hepatic cirrhosis Ascites presence: without ascites Qualified Code(s): K74.60 - Unspecified cirrhosis of liver (9) DVT prophylaxis Current Visit: No Status: Acute Assessment and plan: Heparin 5000 units subcutaneous twice a day - Time Spent With Patient Total time spent is greater than 50% in coordination of care (as documented) at patient's floor/unit and/or counseling patient:
[2018-07-10] MEDS ORDERED: *HR* LORazepam 2 MG/ML VIAL IVP ONE (02:45)
[2018-07-10] MEDS ORDERED: 0.9 % Sodium Chloride 250 ML IVC ONE (02:47)
[2018-07-10] MEDS ORDERED: *HR* LORazepam 2 MG/ML VIAL ONE (02:47)
[2018-07-10] MEDS: Ipratropium/Albuterol Neb 3 ML IH SCH ×5 (03:27→20:02)
[2018-07-10 04:07] LABS: Basophils % 0.2 %; Eosinophils % 0.5 %; Immature Granulocytes % 0.5 % (0-4); Mean Corpuscular Volume 87.7 fL (83.0-100.0)
[2018-07-10 04:09] LABS: Hematocrit 25.7 % (35.3-44.9); Hemoglobin 8.4 g/dL (11.5-15.4); Immature Platelets 1.6 % (1.1-6.1); Lymphocytes # 0.4 K/mcL (0.6-4.6); Lymphocytes % 10.6 %; Mean Corpuscular HGB Conc 32.7 g/dL (31.6-35.5); Mean Corpuscular Hemoglobin 28.7 pg (28.0-33.3); Mean Platelet Volume 9.4 fL (9.4-12.4); Monocytes # 0.4 K/mcL (0.0-1.3); Monocytes % 9.4 %; Neutrophils # 3.2 K/mcL (1.6-8.9); Red Blood Count 2.93 M/mcL (3.82-4.97); Red Cell Distribution Width 14.6 % (11.5-14.5); Segmented Neutrophils % 78.8 %
[2018-07-10 04:15] LABS: Platelet Count 78 K/mcL (140-400)
[2018-07-10 04:17] LABS: Platelet Estimate Decreased (Normal)
[2018-07-10 04:26] LABS: BUN/Creatinine Ratio 16 (6-26); Blood Urea Nitrogen 13 mg/dL (8-23); Calcium 7.5 mg/dL (8.6-10.3); Carbon Dioxide 25 mEq/L (23-29); Chloride 102 mEq/L (98-107); Glucose 135 mg/dL (70-105); Magnesium 0.9 mg/dL (1.6-2.6); Osmolality,Calculated 280 (280-300); Potassium 3.3 mEq/L (3.5-5.1); Sodium 134 mEq/L (136-145); eGFR For Non-African Americans > 60 (> 60)
[2018-07-10] MEDS ORDERED: Potassium Chloride Elixir 20 MEQ/15 ML UDC PO ONE (04:58)
[2018-07-10] MEDS: Acetaminophen 325 MG TABLET PO PRN ×2 (05:21→19:33)
[2018-07-10] MEDS: *HR* Heparin 5,000 UNIT/ML VIAL SQ SCH ×2 (05:26→18:08)
[2018-07-10] MEDS: MethylPREDNISolone 40 MG/ML VIAL IVP SCH ×2 (05:26→18:08)
[2018-07-10] MEDS: Insulin LISPRO 300 UNITS/3 ML VIAL SQ SCH ×4 (05:27→23:59)
[2018-07-10] MEDS ORDERED: Potassium Phosphate 44 MEQ in 0.9 % Sodium Chloride 250 ML IVPB PRN (06:32)
[2018-07-10] MEDS ORDERED: Furosemide 20 MG/2 ML VIAL IVP ONE (07:43)
--- NOTE | 2018-07-10 07:51 | Pulmonology Progress Note ---
Date of Encounter: 07/10/18 Objective PUL Vital signs: Last Vital Signs Temp 100.1 F H 07/10/18 02:00 Pulse 92 07/10/18 07:00 Resp 18 07/10/18 07:00 BP 123/61 07/10/18 07:00 Pulse Ox 100 07/10/18 07:00 Results - Laboratory Findings CBC and BMP: 07/10/18 03:52 07/10/18 03:52 ABG ABG pH 7.46 pH Units (7.32-7.45) H 07/10/18 00:34 ABG pCO2 37 mmHg (35-45) 07/10/18 00:34 ABG pO2 80 mmHg (85-104) L 07/10/18 00:34 ABG O2 Saturation 97 % (95-98) 07/10/18 00:34 PT/INR, D-dimer PT 15.6 Seconds (9.4-12.1) H 07/09/18 19:59 Abnormal lab findings: Abnormal lab results WBC 4.0 K/mcL (4.3-11.1) L D 07/10/18 03:52 RBC 2.93 M/mcL (3.82-4.97) L 07/10/18 03:52 Hgb 8.4 g/dL (11.5-15.4) L D 07/10/18 03:52 Hct 25.7 % (35.3-44.9) L 07/10/18 03:52 RDW 14.6 % (11.5-14.5) H 07/10/18 03:52 Plt Count 78 K/mcL (140-400) L 07/10/18 03:52 Lymphocytes # 0.4 K/mcL (0.6-4.6) L 07/10/18 03:52 Platelet Estimate Decreased (Normal) L 07/10/18 03:52 PT 15.6 Seconds (9.4-12.1) H 07/09/18 19:59 ABG pH 7.46 pH Units (7.32-7.45) H 07/10/18 00:34 ABG pO2 80 mmHg (85-104) L 07/10/18 00:34 ABG Total CO2 28 mEq/L (20-26) H 07/10/18 00:34 Sodium 134 mEq/L (136-145) L 07/10/18 03:52 Potassium 3.3 mEq/L (3.5-5.1) L 07/10/18 03:52 Glucose 135 mg/dL (70-105) H 07/10/18 03:52 POC Glucose 177 mg/dL (70-99) H 07/10/18 01:39 Lactic Acid 2.6 mmol/L (0.5-2.2) H 07/10/18 03:52 Calcium 7.5 mg/dL (8.6-10.3) L 07/10/18 03:52 Magnesium 0.9 mg/dL (1.6-2.6) L 07/10/18 03:52 Total Bilirubin 1.1 mg/dL (0.3-1.0) H 07/09/18 19:59 Direct Bilirubin 0.4 mg/dL (0.0-0.2) H 07/09/18 19:59 Ammonia 54 mcmol/L (16-53) H 07/09/18 23:31 B-Natriuretic Peptide 194 pg/mL (Less than 100) H 07/09/18 19:59 Albumin 3.1 g/dL (3.5-5.7) L 07/09/18 19:59 Albumin/Globulin Ratio 0.9 (1.1-2.2) L 07/09/18 19:59 - Microbiology Findings Microbiology Findings: Microbiology, Last 48 Hours 07/09/18 19:59 Blood Culture - Preliminary Peripheral Venipuncture Culture is incubating and being continuously monitored for growth. Final report to follow. 07/09/18 19:59 Blood Culture - Preliminary Peripheral Venipuncture Culture is incubating and being continuously monitored for growth. Final report to follow. - Clinical Findings Intake & Output: Intake & Output 07/09/18 07/09/18 07/10/18 15:59 23:59 07:59 Intake Total 1390 / 1390 Balance 1390 / 1390 Weight 75.795 kg 72.1 kg Consult Discharge Plan - Plan Referrals: Sy Beaver DO [Primary Care Provider] -
[2018-07-10 09:11] LABS: Adenovirus Not Detected (Not Detect); Coronavirus 229E Not Detected (Not Detect); Coronavirus HKU1 Not Detected (Not Detect); Coronavirus NL63 Not Detected (Not Detect); Coronavirus OC43 Not Detected (Not Detect); Human Metapneumovirus Not Detected (Not Detect); Human Rhinovirus/Enterovirus Not Detected (Not Detect); Influenza A Subtype 2009 H1 Not Detected (Not Detect); Influenza A Untypeable Not Detected (Not Detect); Influenza B Not Detected (Not Detect); Parainfluenza Virus 1 Not Detected (Not Detect); Parainfluenza Virus 2 Not Detected (Not Detect); Parainfluenza Virus 3 Not Detected (Not Detect)
[2018-07-10 09:12] LABS: Bordetella Pertussis Not Detected (Not Detect); Chlamydophila pneumoniae Not Detected (Not Detect); Mycoplasma pneumoniae Not Detected (Not Detect); Parainfluenza Virus 4 Not Detected (Not Detect); Respiratory Syncytial Virus Not Detected (Not Detect)
--- NOTE | 2018-07-10 10:35 | Pulmonology Consult Note ---
<DustyHarmony M - Last Filed: 07/10/18 13:40> Date of Encounter: 07/10/18 Medications and Allergies Amitriptyline [Elavil] 40 mg PO HS 07/04/16 [History] Escitalopram [Lexapro] 20 mg PO DAILY 07/04/16 [History] Esomeprazole Magnesium [Nexium] 40 mg PO DAILY 07/04/16 [History] LORazepam [Ativan] 1 mg PO QID 07/04/16 [History] Metoprolol [Lopressor] 25 mg PO BID 07/04/16 [History] Oxycodone HCl/Acetaminophen [Percocet 10-325 mg Tablet] 1 tab PO Q8H PRN 07/04/16 [History] Risedronate Sodium [Actonel] 35 mg PO QWEEK 07/04/16 [History] Simvastatin [Zocor] 20 mg PO HS 07/04/16 [History] Sucralfate [Carafate] 1 gm PO QIDAC 07/04/16 [History] Furosemide [Lasix] 20 mg PO BID #60 tablet 11/16/17 [Rx] Donepezil HCl [Aricept] 10 mg PO DAILY 01/23/18 [History] Lisinopril [Zestril] 10 mg PO DAILY #30 tablet 04/10/18 [Rx] Budesonide/Formoterol 160/4.5 [Symbicort 160/4.5] 2 puff IH BIDR 30 Days #1 inh 04/20/18 [Rx] predniSONE [PredniSONE] 20 mg PO BIDWM #20 tablet 04/20/18 [Rx] Allergy/AdvReac Type Severity Reaction Status Date / Time haloperidol Allergy Hallucinati Verified 09/09/17 13:46 ng All Systems: The remainder of the systems were reviewed and are negative Physical Examination Vital Signs: Vital Signs, Last 4 Hours Temp Pulse Resp BP Pulse Ox 07/10/18 12:00 77 16 106/55 98 07/10/18 11:00 97.8 F 78 14 122/66 98 07/10/18 10:00 76 25 103/55 99 Results - Laboratory Findings CBC and BMP: 07/10/18 03:52 07/10/18 10:06 ABG ABG pH 7.46 pH Units (7.32-7.45) H 07/10/18 00:34 ABG pCO2 37 mmHg (35-45) 07/10/18 00:34 ABG pO2 80 mmHg (85-104) L 07/10/18 00:34 ABG O2 Saturation 97 % (95-98) 07/10/18 00:34 PT/INR, D-dimer PT 15.6 Seconds (9.4-12.1) H 07/09/18 19:59 Abnormal lab findings: Abnormal lab results WBC 4.0 K/mcL (4.3-11.1) L D 07/10/18 03:52 RBC 2.93 M/mcL (3.82-4.97) L 07/10/18 03:52 Hgb 8.4 g/dL (11.5-15.4) L D 07/10/18 03:52 Hct 25.7 % (35.3-44.9) L 07/10/18 03:52 RDW 14.6 % (11.5-14.5) H 07/10/18 03:52 Plt Count 78 K/mcL (140-400) L 07/10/18 03:52 Lymphocytes # 0.4 K/mcL (0.6-4.6) L 07/10/18 03:52 Platelet Estimate Decreased (Normal) L 07/10/18 03:52 PT 15.6 Seconds (9.4-12.1) H 07/09/18 19:59 ABG pH 7.46 pH Units (7.32-7.45) H 07/10/18 00:34 ABG pO2 80 mmHg (85-104) L 07/10/18 00:34 ABG Total CO2 28 mEq/L (20-26) H 07/10/18 00:34 Glucose 184 mg/dL (70-105) H 07/10/18 10:06 POC Glucose 208 mg/dL (70-99) H 07/10/18 11:29 Lactic Acid 2.4 mmol/L (0.5-2.2) H 07/10/18 10:06 Calcium 7.6 mg/dL (8.6-10.3) L 07/10/18 10:06 Magnesium 0.9 mg/dL (1.6-2.6) L 07/10/18 03:52 Direct Bilirubin 0.4 mg/dL (0.0-0.2) H 07/09/18 19:59 Ammonia 54 mcmol/L (16-53) H 07/09/18 23:31 B-Natriuretic Peptide 194 pg/mL (Less than 100) H 07/09/18 19:59 Serum Total Protein 5.3 g/dL (6.4-8.9) L 07/10/18 10:06 Albumin 2.6 g/dL (3.5-5.7) L 07/10/18 10:06 Albumin/Globulin Ratio 1.0 (1.1-2.2) L 07/10/18 10:06 - Microbiology Findings Microbiology Findings: Microbiology, Last 48 Hours 07/10/18 11:30 Legionella Antigen - Final Urine,Clean Catch Streptococcus pneumoniae Antigen (M - Final 07/09/18 19:59 Blood Culture - Preliminary Peripheral Venipuncture Culture is incubating and being continuously monitored for growth. Final report to follow. 07/09/18 19:59 Blood Culture - Preliminary Peripheral Venipuncture Culture is incubating and being continuously monitored for growth. Final report to follow. - Clinical Findings Intake & Output: Intake & Output 07/09/18 07/10/18 07/10/18 23:59 07:59 15:59 Intake Total 1390 / 1390 200 / 200 Output Total 810 / 810 Balance 1390 / 1390 -610 / -610 Weight 75.795 kg 72.1 kg Consult Discharge Plan - Plan Referrals: Sy Beaver DO [Primary Care Provider] - - Attending Attestation I examined this patient and my medical decision-making was reviewed with the Resident Physician. I agree with the documented findings, disposition and treatment plan as described except to the extent set forth below. Patient seen and examined. Labs, radiology, chart personally reviewed. Agree with resident's history and physical, assessment, plan with following comments: DIGITAL COMMENTATOR: Patient follows commands, Pulmonary: Acceptable oxygenation and ventilation, and on examination she has significant crackles in primarily right lungs and concern about volume overload with her fluid resuscitation and she is on appropriate broad-spectrum antibiotics with keeping her oxygen saturation around 90%. I believe she will benefit from gentle diuresis and we need to have the Piña catheter in place. Will consider noninvasive ventilation if her oxygenation deteriorate further. Cardiovascular: Patient blood pressure has responded to fluid resuscitation and no need for vasopressors at this time, her condition could deteriorate. GI: Nutrition per dietary and GI prophylaxis per routine. We need to be careful about diet since respiratory status still borderline. Heme: DVT prophylaxis per routine ID: Continue antibiotics and plan to de-escalation Renal; urine out put and renal funtion reviewed. Patient will need a Piña catheter to close monitor her ins and outs. I feel more fluid resuscitation might worsen her respiratory status. Endorcine: blood glucose is monitored Lines: all lines checked and no evidence of infections Skin: skin care to prevent pressure ulcers per nursing routine care <Autumn Conley P - Last Filed: 07/10/18 18:47> Date of Encounter: 07/10/18 Time of Encounter: 10:00 Assessment and Plan (1) Acute respiratory failure with hypoxemia Current Visit: Yes Status: Acute This time patient was presented for progressively increased shortness of breath, cough with productive sputum for last few days Patient appears taking prednisolone 20 MG twice a day and Symbicort 2 puffs twice a day, we will confirm those medication She is not taking home oxygen, during presentation the patient was hypoxic, saturation<88% with 2 L oxygen. Respiratory failure with hypoxia might be triggered by pulmonary infection/right-sided pneumonia ABG : Ph 7.46/PCO2 37/PO2 80,Bicarbonate 27 Plan : Continue IV antibiotic Levaquin Continue oxygen on Bipap ;inspired o2 40 Continue IV Solu Medrol and doneb nebulization Added IV lasix 20 Mg IV stat for pul congestion. Review with ABG tomorrow. (2) Pneumonia Current Visit: Yes Status: Acute The patient was initially presented for progressive shortness of breath, cough with sputum Patient was taking prednisone 20 MG twice a day and Symbicort we will confirm those home medication Patient is getting hyperal oxygen via nasal cannula with saturation 98% X-ray chest showed: Infiltration in right lung: Interstitial and alveolar infiltrates White cell count 4.0 and neutrophil 3.2 ABG showed: PH 7.46, bicarbonate 27, PO2 80, PCO2 37 Patient is on IV Levaquin: Vital respiratory panel negative, Sputum culture, Legionella negative and streptococcal pneumoniae antigen positive Plan : Continue IV antibiotic Levaquin, will review after sputum culture report Continue high flow oxygen Continue Solu Medrol IV and DuoNeb neurologist Qualifiers: Pneumonia type: due to unspecified organism Laterality: right Lung location: unspecified part of lung Qualified Code(s): J18.9 - Pneumonia, unspecified organism (3) Sepsis Current Visit: Yes Status: Acute The patient was initially admitted for sepsis,she looked tachypneic, has tachycardia, elevated lactate, hypotension, source of infection: right-sided pneumonia Today she no longer meets sepsis criteria: Vitals blood pressure 107/58, respiration 17/pulse 80/saturation 98%, blood lactate level is trending down 3.4 - 2.4-3.8 , total white count 4.0 and neutrophil 3.2. Viral respiratory panel negative, urine analysis negative for infection. Plan : Continue IV antibiotics for pneumonia Continue high flow oxygen, on bipap We will check lactic tomorrow, but it is trending down since yesterday. Wait and watch for sputum culture and blood culture report Qualifiers: Sepsis type: sepsis due to unspecified organism Qualified Code(s): A41.9 - Sepsis, unspecified organism (4) Hypokalemia Current Visit: Yes Status: Acute The patient has hypokalemia during admission; 3.0 It has been normalized; 4.0, after potassium supplementation We will closely monitor while she is here. (5) Hyponatremia Current Visit: Yes Status: Acute This patient has low sodium level at admission: 133 Now it has been normalized; 136. We will closely monitor. History of Present Illness Consult date: 07/10/18 Requesting physician: Harmony Montano Reason for consult: dyspnea, cough, abnormal CXR/CT Chief complaint: SOB , cough with sputum History of present illness: She is 77 years old female with multiple comorbid conditions: Cirrhosis of liver, chronic dementia, diabetes, GERD, hyperlipidemia, hypertension, COPD presented to [place] [facility] for increased shortness of breath and cough with sputum. The patient has shortness of breath with productive brown sputum for last couple of days and getting worse recently. She is a poor historian so it is hard to get detailed history. The patient has history of fall after she tripped over the dog but she denied any head injury or loss of consciousness. We will discuss with her family members for detailed history and confirmation. The patient denied any fever or chills, chest pain, loss of consciousness, During my bedside visit today, patient was lying on the bed, she is alert, conscious but looks slightly confused. Vitals stable : temperature 97.8, pulse 76, respirations 17, blood pressure 107/58 sat 98 % with 6L oxygen.. On chest examination; there was coarse crackles with expiratory wheezes so we added 20 Mg V lasix for pulmonary congestion / edema. Past Med Surg Social Fam HX - Past Medical History Medical history: cirrhosis, dementia, diabetes, GERD, hyperlipidemia, hypertension, other Additional medical history: stomach ulcers, hiatel hernia, metal plate in head, UTI's Psychiatric history: depression - Past Surgical History Surgical History: hysterectomy Additional surgical history: family states "sx for bleeding ulcer" - Social History Smoking Status: Never smoker Smokeless Tobacco Status: No Alcohol use: unknown Drug use: none - Family History Sister Adopted: No Family Member Ethnicity: Non- Living Status: Hx Family Cardiac Disorders: Yes (Brain aneurysm) Hx Family Respiratory Disorders: No Hx Family Cancer: No Hx Family GI Disorders: No Hx Family Endocrine Disorder: No Hx Family Neuromuscular Disorders: No Hx Family Neurologic Disorders: No Hx Family HEENT Disorders: No Hx Family Autoimmune Disorders: No Brother Family Member Ethnicity: Non- Living Status: Hx Family Cardiac Disorders: Yes (HF, CAD) Mother Family Member Ethnicity: Non- Living Status: Hx Family Cardiac Disorders: Yes (HF, CAD, HTN) Father Family Member Ethnicity: Non- Living Status: Hx Family GI Disorders: Yes (Bleeding ulcers) All Systems: The remainder of the systems were reviewed and are negative - Constitutional Constitutional: weakness - EENT Nose, mouth and throat: no dizziness, no dysphagia, no hoarseness, no nasal congestion, no neck pain, no sore throat - Cardiovascular Cardiovascular: dyspnea, dyspnea on exertion, edema, no chest pain, no chest pain at rest - Respiratory Respiratory: dyspnea, dyspnea on exertion, wheezing, chest congestion, no hemoptysis - Gastrointestinal Gastrointestinal: heartburn, no diarrhea, no fecal incontinence, no hematochezia - Genitourinary Genitourinary: no hematuria - Musculoskeletal Musculoskeletal: no joint pain, no weakness, no muscle weakness, no neck pain - Neurological Neurological: no abnormal movements, no abnormal speech, no confusion, no convulsions, no dizziness, no focal weakness, no paresthesias, no syncope, no vertigo - Endocrine Endocrine: no cold intolerance, no heat intolerance - Hematologic/Lymphatic Hematologic/Lymphatic: no easy bleeding, no lymphadenopathy - Allergic/Immunologic Allergic/Immunologic: wheezing, no tongue swelling, no lip swelling Physical Examination Vital Signs: Vital Signs, Last 4 Hours Temp Pulse Resp BP Pulse Ox 07/10/18 09:00 80 26 107/58 99 07/10/18 08:00 97.8 F 80 17 123/61 98 07/10/18 07:00 92 18 123/61 100 General appearance: no acute distress, alert Eyes: nonicteric ENT: oropharynx moist Neck: supple, no lymphadenopathy Effort: mildly labored Inspection: normal ( Coarse cracles with expiratory wheezes in right side > left side ) Gastrointestinal: normoactive bowel sounds, soft, non-tender, non-distended Extremities: no cyanosis, no edema, no clubbing, pink and warm Musculoskeletal: no deformities non-focal exam, pupils equal and round, CN II-XII normal, motor strength normal and symmetric Results - Laboratory Findings CBC and BMP: 07/10/18 03:52 07/10/18 18:02 ABG ABG pH 7.46 pH Units (7.32-7.45) H 07/10/18 00:34 ABG pCO2 37 mmHg (35-45) 07/10/18 00:34 ABG pO2 80 mmHg (85-104) L 07/10/18 00:34 ABG O2 Saturation 97 % (95-98) 07/10/18 00:34 PT/INR, D-dimer PT 15.6 Seconds (9.4-12.1) H 07/09/18 19:59 Abnormal lab findings: Abnormal lab results WBC 4.0 K/mcL (4.3-11.1) L D 07/10/18 03:52 RBC 2.93 M/mcL (3.82-4.97) L 07/10/18 03:52 Hgb 8.4 g/dL (11.5-15.4) L D 07/10/18 03:52 Hct 25.7 % (35.3-44.9) L 07/10/18 03:52 RDW 14.6 % (11.5-14.5) H 07/10/18 03:52 Plt Count 78 K/mcL (140-400) L 07/10/18 03:52 Lymphocytes # 0.4 K/mcL (0.6-4.6) L 07/10/18 03:52 Platelet Estimate Decreased (Normal) L 07/10/18 03:52 PT 15.6 Seconds (9.4-12.1) H 07/09/18 19:59 ABG pH 7.46 pH Units (7.32-7.45) H 07/10/18 00:34 ABG pO2 80 mmHg (85-104) L 07/10/18 00:34 ABG Total CO2 28 mEq/L (20-26) H 07/10/18 00:34 Sodium 134 mEq/L (136-145) L 07/10/18 03:52 Potassium 3.3 mEq/L (3.5-5.1) L 07/10/18 03:52 Glucose 135 mg/dL (70-105) H 07/10/18 03:52 POC Glucose 177 mg/dL (70-99) H 07/10/18 01:39 Lactic Acid 2.6 mmol/L (0.5-2.2) H 07/10/18 03:52 Calcium 7.5 mg/dL (8.6-10.3) L 07/10/18 03:52 Magnesium 0.9 mg/dL (1.6-2.6) L 07/10/18 03:52 Total Bilirubin 1.1 mg/dL (0.3-1.0) H 07/09/18 19:59 Direct Bilirubin 0.4 mg/dL (0.0-0.2) H 07/09/18 19:59 Ammonia 54 mcmol/L (16-53) H 07/09/18 23:31 B-Natriuretic Peptide 194 pg/mL (Less than 100) H 07/09/18 19:59 Albumin 3.1 g/dL (3.5-5.7) L 07/09/18 19:59 Albumin/Globulin Ratio 0.9 (1.1-2.2) L 07/09/18 19:59 - Microbiology Findings Microbiology Findings: Microbiology, Last 48 Hours 07/09/18 19:59 Blood Culture - Preliminary Peripheral Venipuncture Culture is incubating and being continuously monitored for growth. Final report to follow. 07/09/18 19:59 Blood Culture - Preliminary Peripheral Venipuncture Culture is incubating and being continuously monitored for growth. Final report to follow. - Clinical Findings Intake & Output: Intake & Output 07/09/18 07/10/1819 23:59 07:59 15:59 Intake Total 1390 / 1390 Balance 1390 / 1390 Weight 75.795 kg 72.1 kg
[2018-07-10 10:45] LABS: Alanine Aminotransferase 13 Units/L (7-52); Albumin 2.6 g/dL (3.5-5.7); Alkaline Phosphatase 75 Units/L (34-104); Aspartate Amino Transferase 22 Units/L (13-39); BUN/Creatinine Ratio 16 (6-26); Blood Urea Nitrogen 13 mg/dL (8-23); Calcium 7.6 mg/dL (8.6-10.3); Carbon Dioxide 23 mEq/L (23-29); Chloride 105 mEq/L (98-107); Globulin 2.7 g/dL (2.4-3.5); Glucose 184 mg/dL (70-105); Osmolality,Calculated 287 (280-300); Sodium 136 mEq/L (136-145); Total Protein 5.3 g/dL (6.4-8.9); eGFR For Non-African Americans > 60 (> 60)
[2018-07-10] MEDS ORDERED: *HR* OxyCODONE/APAP 5/325 TABLET PO PRN (15:02)
[2018-07-10] MEDS ORDERED: Levofloxacin 750 MG/150 ML 750 MG/150 ML BAG IVPB SCH (18:00)
[2018-07-10] MEDS: *HR* OxyCODONE/APAP 10/325 TABLET PO PRN (23:55)
[2018-07-11] MEDS: Ipratropium/Albuterol Neb 3 ML IH SCH ×7 (00:03→23:45)
[2018-07-11 05:44] LABS: ABG Base Excess 1 mEq/L (-2 to 3); ABG HCO3 26 mEq/L (21-27); ABG Oxygen Saturation 96 % (95-98); ABG PCO2 43 mmHg (35-45); ABG PH 7.39 pH Units (7.32-7.45); ABG PO2 79 mmHg (85-104); ABG TCO2 28 mEq/L (20-26)
[2018-07-11 06:00] LABS: Red Blood Count 3.08 M/mcL (3.82-4.97); Red Cell Distribution Width 14.6 % (11.5-14.5)
[2018-07-11] MEDS: MethylPREDNISolone 40 MG/ML VIAL IVP SCH (06:00)
[2018-07-11] MEDS: *HR* Heparin 5,000 UNIT/ML VIAL SQ SCH ×2 (06:00→18:16)
[2018-07-11] MEDS: Insulin LISPRO 300 UNITS/3 ML VIAL SQ SCH ×3 (06:00→20:34)
[2018-07-11 06:03] LABS: Hematocrit 27.4 % (35.3-44.9); Hemoglobin 8.9 g/dL (11.5-15.4); Immature Granulocytes % 0.5 % (0-4); Immature Platelets 1.8 % (1.1-6.1); Lymphocytes # 0.1 K/mcL (0.6-4.6); Lymphocytes % 3.1 %; Mean Corpuscular HGB Conc 32.5 g/dL (31.6-35.5); Mean Corpuscular Hemoglobin 28.9 pg (28.0-33.3); Mean Platelet Volume 9.5 fL (9.4-12.4); Monocytes # 0.2 K/mcL (0.0-1.3); Monocytes % 4.3 %; Neutrophils # 3.9 K/mcL (1.6-8.9); Segmented Neutrophils % 92.1 %
[2018-07-11 06:05] LABS: Platelet Count 88 K/mcL (140-400)
[2018-07-11 06:22] LABS: BUN/Creatinine Ratio 24 (6-26); Blood Urea Nitrogen 18 mg/dL (8-23); Calcium 8.2 mg/dL (8.6-10.3); Carbon Dioxide 25 mEq/L (23-29); Chloride 102 mEq/L (98-107); Glucose 193 mg/dL (70-105); Osmolality,Calculated 283 (280-300); Potassium 4.6 mEq/L (3.5-5.1); Sodium 133 mEq/L (136-145); eGFR For Non-African Americans > 60 (> 60)
[2018-07-11 06:27] LABS: Platelet Estimate Slight Decrease (Normal)
--- NOTE | 2018-07-11 07:19 | Pulmonology Progress Note ---
<Autumn Conley P - Last Filed: 07/11/18 14:22> Date of Encounter: 07/11/18 Time of Encounter: 10:15 Assessment and Plan (1) Acute respiratory failure with hypoxemia Current Visit: Yes Status: Acute This time patient was presented for progressively increased shortness of breath, cough with productive sputum for last few days Patient appears taking prednisolone 20 MG twice a day and Symbicort 2 puffs twice a day,but no home oxygen. During presentation the patient was hypoxic, saturation<88% with 2 L oxygen. Respiratory failure with hypoxia might be triggered by pulmonary infection/right-sided pneumonia ABG : Ph 7.39/PCO2 43/PO2 79,Bicarbonate 26: improved compared to yesterday. Plan : Continue IV antibiotic Levaquin Continue oxygen on Bipap ;inspired o2 36 during night and during day 4L oxygen via nasal canula. Continue IV Solu Medrol and doneb nebulization Review with ABG tomorrow. (2) Pneumonia Current Visit: Yes Status: Acute The patient was initially presented for progressive shortness of breath, cough with sputum Patient was taking prednisone 20 MG twice a day and Symbicort we will confirm those home medication Patient is getting hyperal oxygen via nasal cannula with saturation 98% X-ray chest showed: Infiltration in right lung: Interstitial and alveolar infiltrates White cell count 4.2 and neutrophil 3.9 ABG showed: PH 7.39, bicarbonate 27, PO2 79, PCO2 43 Patient is on IV Levaquin: Vital respiratory panel negative, Sputum culture, Legionella negative and streptococcal pneumoniae antigen positive Plan : Continue IV antibiotic Levaquin, will review after sputum culture report Continue high flow oxygen Continue Solu Medrol IV and DuoNeb nebulization. Qualifiers: Pneumonia type: due to unspecified organism Laterality: right Lung location: unspecified part of lung Qualified Code(s): J18.9 - Pneumonia, unspecified organism (3) Sepsis Current Visit: Yes Status: Acute The patient was initially admitted for sepsis,she looked tachypneic, has tachycardia, elevated lactate, hypotension, source of infection: right-sided pneumonia Today her Vitals :blood pressure 131/57, respiration 14/pulse 118/saturation 95%, blood lactate level is trending down 3.4 - 2.4-3.3 , total white count 4.2 and neutrophil 3.9. Viral respiratory panel negative, urine S pneumonae antigen positive , urine analysis negative for infection. Plan : Continue IV antibiotics for pneumonia Continue high flow oxygen, on bipap We will check lactic tomorrow, but it is trending down since yesterday. Wait and watch for sputum culture and blood culture final report Will closely monitor for worsening sepsis / septic shock . Qualifiers: Sepsis type: sepsis due to unspecified organism Qualified Code(s): A41.9 - Sepsis, unspecified organism (4) Hypokalemia Current Visit: Yes Status: Acute The patient has hypokalemia during admission; 3.0 It has been normalized; 4.6, after potassium supplementation We will closely monitor while she is here. (5) Hyponatremia Current Visit: Yes Status: Acute This patient has low sodium level at admission: 133 Now it has been normalized; 136 and today 133. We will closely monitor. Objective PUL Vital signs: Last Vital Signs Temp 97.6 F 07/11/18 04:43 Pulse 104 07/11/18 06:00 Resp 20 07/11/18 06:00 BP 118/57 07/11/18 06:00 Pulse Ox 96 07/11/18 06:00 General appearance: no acute distress Eyes: nonicteric ENT: oropharynx moist Neck: supple, no lymphadenopathy Effort: normal, other Auscultation: bilateral: diminished breath sounds, wheezes, rales Cardiovascular: regular rate and rhythm, other (Tachycardia ) Gastrointestinal: normoactive bowel sounds, soft, non-tender, non-distended Integumentary: normal Extremities: no cyanosis Gait: normal posture non-focal exam, pupils equal and round, CN II-XII normal, other (Slighttly confused ) affect normal Results - Laboratory Findings CBC and BMP: 07/11/18 05:49 07/11/18 05:49 ABG ABG pH 7.39 pH Units (7.32-7.45) 07/11/18 05:40 ABG pCO2 43 mmHg (35-45) 07/11/18 05:40 ABG pO2 79 mmHg (85-104) L 07/11/18 05:40 ABG O2 Saturation 96 % (95-98) 07/11/18 05:40 PT/INR, D-dimer PT 15.6 Seconds (9.4-12.1) H 07/09/18 19:59 Abnormal lab findings: Abnormal lab results WBC 4.2 K/mcL (4.3-11.1) L 07/11/18 05:49 RBC 3.08 M/mcL (3.82-4.97) L 07/11/18 05:49 Hgb 8.9 g/dL (11.5-15.4) L 07/11/18 05:49 Hct 27.4 % (35.3-44.9) L 07/11/18 05:49 RDW 14.6 % (11.5-14.5) H 07/11/18 05:49 Plt Count 88 K/mcL (140-400) L 07/11/18 05:49 Lymphocytes # 0.1 K/mcL (0.6-4.6) L 07/11/18 05:49 Platelet Estimate Slight Decrease (Normal) L 07/11/18 05:49 PT 15.6 Seconds (9.4-12.1) H 07/09/18 19:59 ABG pO2 79 mmHg (85-104) L 07/11/18 05:40 ABG Total CO2 28 mEq/L (20-26) H 07/11/18 05:40 Sodium 133 mEq/L (136-145) L 07/11/18 05:49 Glucose 193 mg/dL (70-105) H 07/11/18 05:49 POC Glucose 199 mg/dL (70-99) H 07/11/18 05:41 Lactic Acid 2.3 mmol/L (0.5-2.2) H 07/11/18 05:49 Calcium 8.2 mg/dL (8.6-10.3) L 07/11/18 05:49 Direct Bilirubin 0.4 mg/dL (0.0-0.2) H 07/09/18 19:59 Ammonia 54 mcmol/L (16-53) H 07/09/18 23:31 B-Natriuretic Peptide 194 pg/mL (Less than 100) H 07/09/18 19:59 Serum Total Protein 5.3 g/dL (6.4-8.9) L 07/10/18 10:06 Albumin 2.6 g/dL (3.5-5.7) L 07/10/18 10:06 Albumin/Globulin Ratio 1.0 (1.1-2.2) L 07/10/18 10:06 - Microbiology Findings Microbiology Findings: Microbiology, Last 48 Hours 07/10/18 11:30 Legionella Antigen - Final Urine,Clean Catch Streptococcus pneumoniae Antigen (M - Final 07/09/18 19:59 Blood Culture - Preliminary Peripheral Venipuncture Culture is incubating and being continuously monitored for growth. Final report to follow. 07/09/18 19:59 Blood Culture - Preliminary Peripheral Venipuncture Culture is incubating and being continuously monitored for growth. Final report to follow. - Clinical Findings Intake & Output: Intake & Output 07/10/18 07/10/18 07/11/18 15:59 23:59 07:59 Intake Total 404 / 404 204 / 204 Output Total 810 / 810 925 / 925 250 / 250 Balance -406 / -406 -721 / -721 -250 / -250 Weight 73.9 kg Consult Discharge Plan - Plan Referrals: Sy Beaver DO [Primary Care Provider] - Subjective Principal diagnosis: Acute respiratory failure with Hypoxia, Pneumonia Interval history: She is 77 years old female with multiple comorbid conditions: Cirrhosis of liver, chronic dementia, diabetes, GERD, hyperlipidemia, hypertension, COPD presented to [place] emergency for increased shortness of breath and cough with sputum. The patient has shortness of breath with productive brown sputum for last couple of days and getting worse recently. She is a poor historian so it is hard to get detailed history. The patient has history of fall after she tripped over the dog but she denied any head injury or loss of consciousness. We will discuss with her family members for detailed history and confirmation. The patient denied any fever or chills, chest pain, loss of consciousness, During my bedside visit today, patient was lying on the bed, she is alert, conscious but looks slightly confused. Vitals stable : temperature 97.8, pulse 76, respirations 17, blood pressure 107/58 sat 98 % with 6L oxygen.. On chest examination; there was coarse crackles with expiratory wheezes so we added 20 Mg V lasix for pulmonary congestion / edema yesterday , but she has been doing better today. I talked with hospitalist and they are willing to sift to stepdown unit today. She is on Piña's catheter in will try to remove and we have requested seater while she is in inpatient unit as she looks confused. <Harmony Montano M - Last Filed: 07/12/18 06:11> Date of Encounter: 07/12/18 Objective PUL Vital signs: Last Vital Signs Temp 98.9 F 07/11/18 08:59 Pulse 121 07/11/18 10:00 Resp 18 07/11/18 10:00 BP 148/66 07/11/18 10:00 Pulse Ox 90 07/11/18 10:00 Results - Laboratory Findings CBC and BMP: 07/11/18 05:49 07/11/18 05:49 ABG ABG pH 7.39 pH Units (7.32-7.45) 07/11/18 05:40 ABG pCO2 43 mmHg (35-45) 07/11/18 05:40 ABG pO2 79 mmHg (85-104) L 07/11/18 05:40 ABG O2 Saturation 96 % (95-98) 07/11/18 05:40 PT/INR, D-dimer PT 15.6 Seconds (9.4-12.1) H 07/09/18 19:59 Abnormal lab findings: Abnormal lab results WBC 4.2 K/mcL (4.3-11.1) L 07/11/18 05:49 RBC 3.08 M/mcL (3.82-4.97) L 07/11/18 05:49 Hgb 8.9 g/dL (11.5-15.4) L 07/11/18 05:49 Hct 27.4 % (35.3-44.9) L 07/11/18 05:49 RDW 14.6 % (11.5-14.5) H 07/11/18 05:49 Plt Count 88 K/mcL (140-400) L 07/11/18 05:49 Lymphocytes # 0.1 K/mcL (0.6-4.6) L 07/11/18 05:49 Platelet Estimate Slight Decrease (Normal) L 07/11/18 05:49 PT 15.6 Seconds (9.4-12.1) H 07/09/18 19:59 ABG pO2 79 mmHg (85-104) L 07/11/18 05:40 ABG Total CO2 28 mEq/L (20-26) H 07/11/18 05:40 Sodium 133 mEq/L (136-145) L 07/11/18 05:49 Glucose 193 mg/dL (70-105) H 07/11/18 05:49 POC Glucose 199 mg/dL (70-99) H 07/11/18 05:41 Lactic Acid 2.3 mmol/L (0.5-2.2) H 07/11/18 05:49 Calcium 8.2 mg/dL (8.6-10.3) L 07/11/18 05:49 Direct Bilirubin 0.4 mg/dL (0.0-0.2) H 07/09/18 19:59 Ammonia 54 mcmol/L (16-53) H 07/09/18 23:31 B-Natriuretic Peptide 194 pg/mL (Less than 100) H 07/09/18 19:59 Serum Total Protein 5.3 g/dL (6.4-8.9) L 07/10/18 10:06 Albumin 2.6 g/dL (3.5-5.7) L 07/10/18 10:06 Albumin/Globulin Ratio 1.0 (1.1-2.2) L 07/10/18 10:06 - Microbiology Findings Microbiology Findings: Microbiology, Last 48 Hours 07/10/18 11:30 Legionella Antigen - Final Urine,Clean Catch Streptococcus pneumoniae Antigen (M - Final 07/09/18 19:59 Blood Culture - Preliminary Peripheral Venipuncture Culture is incubating and being continuously monitored for growth. Final report to follow. 07/09/18 19:59 Blood Culture - Preliminary Peripheral Venipuncture Culture is incubating and being continuously monitored for growth. Final report to follow. - Clinical Findings Intake & Output: Intake & Output 07/10/18 07/11/18 07/11/18 23:59 07:59 15:59 Intake Total 204 / 204 600 / 600 Output Total 925 / 925 250 / 250 250 / 250 Balance -721 / -721 -250 / -250 350 / 350 Weight 73.9 kg - Attending Attestation I examined this patient and my medical decision-making was reviewed with the Resident Physician. I agree with the documented findings, disposition and treatment plan as described except to the extent set forth below. Patient seen and examined. Labs, radiology, chart personally reviewed. 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 To continue treatment for pneumonia and keep SPO2 around 90% as well as incentive spirometry and physical therapy. Cardiovascular: stable . Diuresis will be helpful as tolerated. GI: Nutrition per dietary and GI prophylaxis per routine Heme: DVT prophylaxis per routine ID: Continue antibiotics and plan to de-escalation Renal; urine out put and renal funtion reviewed Endorcine: blood glucose is monitored Lines: all lines checked and no evidence of infections Skin: skin care to prevent pressure ulcers per nursing routine care Patient stable enough to be transferred to the floor, however she still at risk of complications due to her comorbidities.
[2018-07-11] MEDS: *HR* OxyCODONE/APAP 10/325 TABLET PO PRN ×2 (10:36→18:22)
[2018-07-11] MEDS ORDERED: *HR* Dextrose 50 % in Water (Syg) 50 ML SYRINGE IVP PRN (13:32)
[2018-07-11] MEDS ORDERED: Naloxone 0.4 MG/ML INJ IVP PRN (13:32)
[2018-07-11] MEDS ORDERED: D5% in Water 1,000 ML IVC PRN (13:32)
[2018-07-11] MEDS ORDERED: Dextrose Gel 15 GM/37.5 ML TUBE PO PRN ×2 (13:32)
[2018-07-11] MEDS ORDERED: Insulin LISPRO 300 UNITS/3 ML VIAL SQ SCH ×2 (16:30→21:00)
[2018-07-11] MEDS ORDERED: Levofloxacin 750 MG/150 ML 750 MG/150 ML BAG IVPB SCH (18:00)
--- NOTE | 2018-07-11 21:34 | Electrocardiograph Report ---
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
[2018-07-12] MEDS: *HR* OxyCODONE/APAP 10/325 TABLET PO PRN (02:28)
[2018-07-12] MEDS: Ipratropium/Albuterol Neb 3 ML IH SCH ×6 (03:36→23:16)
[2018-07-12] MEDS: *HR* Heparin 5,000 UNIT/ML VIAL SQ SCH ×2 (05:19→17:32)
[2018-07-12 06:12] LABS: BUN/Creatinine Ratio 29 (6-26); Basophils % 0.1 %; Blood Urea Nitrogen 24 mg/dL (8-23); Calcium 8.8 mg/dL (8.6-10.3); Carbon Dioxide 26 mEq/L (23-29); Chloride 101 mEq/L (98-107); Eosinophils % 0.3 %; Glucose 126 mg/dL (70-105); Hematocrit 30.1 % (35.3-44.9); Hemoglobin 9.6 g/dL (11.5-15.4); Immature Granulocytes % 1.1 % (0-4); Lymphocytes # 0.7 K/mcL (0.6-4.6); Lymphocytes % 8.4 %; Mean Corpuscular HGB Conc 31.9 g/dL (31.6-35.5); Mean Corpuscular Hemoglobin 28.7 pg (28.0-33.3); Mean Corpuscular Volume 89.9 fL (83.0-100.0); Mean Platelet Volume 9.8 fL (9.4-12.4); Monocytes # 0.6 K/mcL (0.0-1.3); Monocytes % 7.1 %; Neutrophils # 7.2 K/mcL (1.6-8.9); Osmolality,Calculated 280 (280-300); Platelet Count 135 K/mcL (140-400); Potassium 5.4 mEq/L (3.5-5.1); Red Blood Count 3.35 M/mcL (3.82-4.97); Red Cell Distribution Width 14.8 % (11.5-14.5); Sodium 132 mEq/L (136-145); eGFR For Non-African Americans > 60 (> 60)
[2018-07-12 06:43] LABS: Platelet Estimate Normal (Normal)
[2018-07-12] MEDS: Insulin LISPRO 300 UNITS/3 ML VIAL SQ SCH ×4 (08:08→20:50)
[2018-07-12] MEDS: predniSONE 20 MG TABLET PO SCH (08:45)
[2018-07-12] MEDS: Acetaminophen 325 MG TABLET PO PRN (08:46)
[2018-07-12] MEDS ORDERED: predniSONE 20 MG TABLET PO SCH (09:00)
[2018-07-12] MEDS ORDERED: Levofloxacin 750 MG/150 ML 750 MG/150 ML BAG IVPB SCH ×2 (09:00→18:00)
[2018-07-12] MEDS: cefTRIAXone 2,000 MG in Water for inj. (sterile) 20 ML 20 ML IVP SCH (12:07)
--- NOTE | 2018-07-12 16:10 | Internal Med Progress Note ---
Hospitalist Progress Note - Encounter Date of Encounter: 07/12/18 Time of Encounter: 16:04 - Subjective Interval History: Pt states she is diaphoretic and felt febrile. She did have temp of 99.0. Nurse had just given her Tylenol for her MELÉNDEZ and fever may have broke from that. She denies abdominal pain. She denies congestion, sore throat. She denies chest pain - Exam Vitals: Temp Pulse Resp BP Pulse Ox 98.2 F 110 16 146/71 91 07/12/18 15:50 07/12/18 15:50 07/12/18 15:50 07/12/18 15:50 07/12/18 15:50 Exam: General appearance: Present: A&O X 2, pt has dementia at baseline Head exam: Present: Atraumatic, normal inspection, normocephalic Eye exam: Present: EOMI, PERRLA ENT exam: Present: mucous membranes moist Respiratory exam: Present: CTABL Absent: respiratory distress , rhonchi (Diffuse), wheezes (Scattered end expiratory), tachypnea. Cardiovascular exam: Present: RRR. Absent: gallop, rubs, systolic murmur GI/Abdominal exam: Present: normal bowel sounds, soft. Absent: distended, tenderness Extremities exam: Present: warm. Absent: pedal edema, tenderness Neurological exam: Present: alert, altered (Per ER report family states this is baseline), no focal deficits. Absent: oriented X3, facial droop, speech deficit Psychiatric exam: Present: normal affect, normal mood Skin exam: Present: dry, intact, warm - Assessment and Plan (1) Pneumonia Current Visit: Yes Status: Acute Assessment and Plan: Vital respiratory panel negative. Sputum culture, Legionella negative and streptococcal pneumoniae antigen positive Plan : Switching from IV Levaquin to Rocephin Continue on oxygen Continue Solu Medrol IV and DuoNeb nebulization. (2) Sepsis Current Visit: Yes Status: Acute Assessment and Plan: Likely due to PNA Was on Levaquin now switching to Rocephin. Low grade temp of 99.0 today, 07/12/18 otherwise vitals stable. (3) Acute respiratory failure with hypoxemia Current Visit: Yes Status: Acute Assessment and Plan: Pt seen by pulmonology. - plan is to cont IV Levaquin - Continue oxygen on BiPAP; inspired O2 36 during night and during day 4L oxygen via nasal canula. - Continue IV Solu Medrol and duoneb nebulization - Reviewed ABG 07/11/18. (4) Hypokalemia Current Visit: Yes Status: Acute Assessment and Plan: K 5.4 today. Will recheck after IVF and if still elevated, will consider giving Kayexlate x one. (5) Hyponatremia Current Visit: Yes Status: Acute Assessment and Plan: Will give IVF and recheck Na in am. DVT Prophylaxis: Heparin - Time Spent with Patient Total time spent is greater than 50% in coordination of care (as documented) at patient's floor/unit and/or counseling patient: less than 15 minutes Plan of Care Discussed with: patient Internal Medicine: Result - Labs CBC & Chem 7: 07/12/18 05:19 07/12/18 05:19 Labs: Short CBC 07/12/18 Range/Units 05:19 WBC 8.7 D (4.3-11.1) K/mcL Hgb 9.6 L (11.5-15.4) g/dL Hct 30.1 L (35.3-44.9) % Plt Count 135 L D (140-400) K/mcL Neutrophils # 7.2 (1.6-8.9) K/mcL BMP 07/12/18 05:19 Sodium 132 L Potassium 5.4 H Chloride 101 Carbon Dioxide 26 BUN 24 H Creatinine 0.83 Glucose 126 H Calcium 8.8 - ABG Interpretation ABG results: ABG ABG pH 7.39 pH Units (7.32-7.45) 07/11/18 05:40 ABG pCO2 43 mmHg (35-45) 07/11/18 05:40 ABG pO2 79 mmHg (85-104) L 07/11/18 05:40 ABG O2 Saturation 96 % (95-98) 07/11/18 05:40 PT/INR, D-dimer PT 15.6 Seconds (9.4-12.1) H 07/09/18 19:59 Consult Discharge Plan - Plan Referrals: Sy Beaver DO [Primary Care Provider] - (1) Pneumonia Qualifiers: Pneumonia type: due to unspecified organism Laterality: right Lung location: unspecified part of lung Qualified Code(s): J18.9 - Pneumonia, unspecified organism (2) Sepsis Qualifiers: Sepsis type: sepsis due to unspecified organism Qualified Code(s): A41.9 - Sepsis, unspecified organism
[2018-07-12 17:26] LABS: Potassium 5.3 mEq/L (3.5-5.1)
[2018-07-12] MEDS ORDERED: 0.9 % Sodium Chloride 1,000 ML ONE (17:28)
[2018-07-12] MEDS: 0.9 % Sodium Chloride 1,000 ML IVC SCH (17:37)
[2018-07-13] MEDS: Ipratropium/Albuterol Neb 3 ML IH SCH ×6 (03:34→23:53)
[2018-07-13] MEDS: *HR* Heparin 5,000 UNIT/ML VIAL SQ SCH ×2 (05:30→18:13)
[2018-07-13] MEDS: 0.9 % Sodium Chloride 1,000 ML IVC SCH ×2 (06:20→19:54)
[2018-07-13] MEDS ORDERED: MOM Conc 10 ML UD.LIQ PO ONE (09:03)
[2018-07-13] MEDS: predniSONE 20 MG TABLET PO SCH (09:20)
[2018-07-13] MEDS: cefTRIAXone 2,000 MG in Water for inj. (sterile) 20 ML 20 ML IVP SCH (09:20)
[2018-07-13] MEDS: Insulin LISPRO 300 UNITS/3 ML VIAL SQ SCH ×4 (09:26→21:41)
[2018-07-13 10:22] LABS: Basophils % 0.1 %; Eosinophils % 0.4 %; Hematocrit 33.7 % (35.3-44.9); Hemoglobin 11.1 g/dL (11.5-15.4); Immature Granulocytes % 1.2 % (0-4); Lymphocytes # 0.9 K/mcL (0.6-4.6); Lymphocytes % 8.9 %; Mean Corpuscular HGB Conc 32.9 g/dL (31.6-35.5); Mean Corpuscular Hemoglobin 29.3 pg (28.0-33.3); Mean Corpuscular Volume 88.9 fL (83.0-100.0); Mean Platelet Volume 9.3 fL (9.4-12.4); Monocytes # 0.9 K/mcL (0.0-1.3); Monocytes % 9.6 %; Neutrophils # 7.8 K/mcL (1.6-8.9); Platelet Count 190 K/mcL (140-400); Red Blood Count 3.79 M/mcL (3.82-4.97); Red Cell Distribution Width 15.6 % (11.5-14.5); Segmented Neutrophils % 79.8 %
[2018-07-13 10:37] LABS: BUN/Creatinine Ratio 26 (6-26); Blood Urea Nitrogen 19 mg/dL (8-23); Calcium 9.1 mg/dL (8.6-10.3); Carbon Dioxide 29 mEq/L (23-29); Chloride 98 mEq/L (98-107); Glucose 197 mg/dL (70-105); Osmolality,Calculated 286 (280-300); Potassium 4.3 mEq/L (3.5-5.1); Sodium 134 mEq/L (136-145); eGFR For Non-African Americans > 60 (> 60)
--- NOTE | 2018-07-13 14:59 | Discharge Summary ---
- NOTES TO OUTPATIENT PROVIDER Notes to Outpatient Provider: PCP in 5 to 7 days. Pulomonology out pt Orders not resulted at time of discharge: Pending orders 07/09/18 19:59 Culture,Blood [BC] Stat 07/10/18 01:35 Culture,Sputum with Gram Stain [] Routine Date of Encounter: 07/13/18 Time of Encounter: 14:57 - Discharge Diagnosis (1) Sepsis Priority: Primary Status: Acute Assessment and Plan: Likely due to PNA Was on Levaquin but switched to Rocephin. Will DC on Omnicef for few more days Low grade temp of 99.0, 07/12/18 resolved. Vitals stable Qualifiers: Sepsis type: sepsis due to unspecified organism Qualified Code(s): A41.9 - Sepsis, unspecified organism (2) Acute respiratory failure with hypoxemia Priority: Primary Status: Acute Assessment and Plan: Pt seen by pulmonology. - Was on IV Levaquin - Continue oxygen on BiPAP; inspired O2 36 during night and during day 4L oxygen via nasal canula. - Will change IV Solu Medrol to PO taper. - Duoneb nebulization - Reviewed ABG 07/11/18. (3) Pneumonia Priority: Primary Status: Acute Assessment and Plan: Viral respiratory panel negative. Sputum culture, Legionella negative and streptococcal pneumoniae antigen positive Plan : Switched from IV Levaquin to Rocephin but will DC on Omnicef. Continue on oxygen Will change IV Solu Medrol to PO taper. DuoNeb nebulization. Qualifiers: Pneumonia type: due to unspecified organism Laterality: right Lung location: unspecified part of lung Qualified Code(s): J18.9 - Pneumonia, unspecified organism (4) Hypokalemia Priority: Secondary Status: Acute Assessment and Plan: K 5.4 07/12/18. K 4.3 after getting fluids. Follow up out pt with PCP for further recommendations. (5) Hyponatremia Priority: Secondary Status: Acute Assessment and Plan: Improved with IVF. Follow up out pt with PCP. (6) Constipation Priority: Secondary Status: Acute Assessment and Plan: milk of mag x one Qualifiers: Qualified Code(s): K59.01 - Slow transit constipation Hospital course: History of present illness: Dr. Baumann Ms. Nieto is a 77 year old female with history of dementia, hypertension presented with shortness of breath and cough as well as a fall. Patient is somewhat of a poor historian and there is no family at bedside. She states that she had a fall. She states that she feels like she tripped over the dog's. She denies any loss of consciousness or hitting her head. She also reports increasing shortness of breath over the last several days. She reports her cough with productive brown sputum. She states she has never had anything like this before. She denies any fevers or chills. She feels like she is getting worse. Patient has baseline dementia and does not have the capacity this time to discuss CODE STATUS. Patient will remain full code Discharge discussed with: patient - Time Spent with Patient Total time spent providing and/or coordinating discharge services: Time spent: Greater than 30 minutes - Discharge Medications Prescriptions: No Action Sucralfate [Carafate] 1 gm PO QIDAC LORazepam [Ativan] 1 mg PO QID Amitriptyline [Elavil] 40 mg PO HS Escitalopram [Lexapro] 20 mg PO DAILY Simvastatin [Zocor] 20 mg PO HS Metoprolol [Lopressor] 25 mg PO BID Risedronate Sodium [Actonel] 35 mg PO QWEEK Oxycodone HCl/Acetaminophen [Percocet 10-325 mg Tablet] 1 tab PO Q8H PRN PRN Reason: Pain Esomeprazole Magnesium [Nexium] 40 mg PO DAILY Furosemide [Lasix] 20 mg PO BID #60 tablet Donepezil HCl [Aricept] 10 mg PO DAILY Budesonide/Formoterol 160/4.5 [Symbicort 160/4.5] 2 puff IH BIDR 30 Days #1 inh metFORMIN [Glucophage] 500 mg PO BIDWM Lisinopril [Zestril] 40 mg PO DAILY Potassium Chloride [K-Tab ER] 10 meq PO BID Home Medications: Amitriptyline [Elavil] 40 mg PO HS 07/04/16 [History] Escitalopram [Lexapro] 20 mg PO DAILY 07/04/16 [History] Esomeprazole Magnesium [Nexium] 40 mg PO DAILY 07/04/16 [History] LORazepam [Ativan] 1 mg PO QID 07/04/16 [History] Metoprolol [Lopressor] 25 mg PO BID 07/04/16 [History] Oxycodone HCl/Acetaminophen [Percocet 10-325 mg Tablet] 1 tab PO Q8H PRN 07/04/16 [History] Risedronate Sodium [Actonel] 35 mg PO QWEEK 07/04/16 [History] Simvastatin [Zocor] 20 mg PO HS 07/04/16 [History] Sucralfate [Carafate] 1 gm PO QIDAC 07/04/16 [History] Furosemide [Lasix] 20 mg PO BID #60 tablet 11/16/17 [Rx] Donepezil HCl [Aricept] 10 mg PO DAILY 01/23/18 [History] Budesonide/Formoterol 160/4.5 [Symbicort 160/4.5] 2 puff IH BIDR 30 Days #1 inh 04/20/18 [Rx] Lisinopril [Zestril] 40 mg PO DAILY 07/11/18 [History] Potassium Chloride [K-Tab ER] 10 meq PO BID 07/11/18 [History] metFORMIN [Glucophage] 500 mg PO BIDWM 07/11/18 [History] Allergies/Adverse Reactions: Allergy/AdvReac Type Severity Reaction Status Date / Time haloperidol Allergy Hallucinati Verified 09/09/17 13:46 ng Date of admission: 07/10/18 01:29 Primary care physician: Brayan Beaver DO Consults: 07/10/18 02:57 Consult to Wound Care [CONS] Routine Reason for Consult: decubitius ulcer Call Completed: No 07/10/18 06:34 Consult to Critical Care [CONS] Routine Consulting Provider: [facility] Reason for Consult: Hypotension, pneumonia Call Completed: Yes 07/10/18 19:15 Consult to Cell Attendant Helper [CONS] Routine Reason for SW Consult: Possible need for ECF/rehab 07/12/18 09:33 Consult to Nurse Navigator [CONS] Routine Comment: pn 07/12/18 09:50 Consult to Occupational Therapy [CONS] Routine Comment: Evaluate, develop and implement POC Reason for Consult: eval for ecf Does patient have active BEDREST order?: No Is patient medically & hemodynamically stable?: Yes Consult to Physical Therapy [CONS] Routine Comment: Evaluate, develop and implement POC Reason for Consult: eval for ecf Does patient have active BEDREST order?: No Is patient medically & hemodynamically stable?: Yes Discharging clinician: Keke Valles Anticipated date of discharge: 07/13/18 - Constitutional Vitals: Temp Pulse Resp BP Pulse Ox 97.7 F 94 16 129/77 96 07/13/18 10:04 07/13/18 10:04 07/13/18 11:07 07/13/18 10:04 07/13/18 11:07 General appearance: Present: A&O X 2, A&O X 3, no acute distress Exam: . - Head Head exam: Present: atraumatic, normocephalic - Eye Eye exam: Present: PERRL, conjuntiva pink, sclera anicteric Pupils: Present: PERRL - Neck Neck exam general surgery: Present: supple, trachea midline. Absent: lymphadenopathy - Respiratory Respiratory exam: Present: CTAB. Absent: accessory muscle use, rales, rhonchi, wheezes - Cardiovascular Cardiovascular exam: Present: RRR, +S1, +S2. Absent: diastolic murmur, gallop, rubs, systolic murmur - GI/Abdominal GI/Abdominal exam: Present: normal bowel sounds, soft, no peritoneal signs. Absent: distended, tenderness - Extremities Exam Extremities exam: Present: warm, radial pulses palpable and symmetrical. Absent: calf tenderness, cyanotic, pedal edema - Neurological Exam Neurological exam: Present: CN II-XII intact, oriented X3, no focal deficits. Absent: pronater drift, facial droop, speech deficit - Skin Skin exam: Present: dry, intact - Patient Status Disposition: Home Health Service Condition: Fair Overall status at discharge: patient is back to baseline - Discharge Instructions Follow Up With: Sy Beaver DO [Primary Care Provider] - - Diet and Activity Activity: increase activity as tolerated Diet: diabetic diet, low fat, low cholesterol, low salt diet
--- NOTE | 2018-07-13 15:18 | Physician Discharge Referral ---
Home Health/Hosp Referral Info Transfer to: Home Health Provider in Charge Post Discharge: PCP - Diagnosis (1) Sepsis Priority: Primary Status: Acute (2) Acute respiratory failure with hypoxemia Priority: Primary Status: Acute (3) Pneumonia Priority: Primary Status: Acute (4) Hypokalemia Priority: Secondary Status: Acute (5) Hyponatremia Priority: Secondary Status: Acute (6) Constipation Status: Acute - Respiratory Orders Smoking Cessation: Smoking cessation has been advised. For more information, call the [place] Tobacco Quit Line at 6-673-JGND-NOW. - Diet/Nutrition Diet/Nutrition Orders: Cardiac, No Concentrated Sweets - Services Needed Following services are medically necessary services: Nursing, Home Health Aide, Physical Therapy, Occupational Therapy - Transfer Medications Prescriptions: Cefdinir [Omnicef] 300 mg PO BID 10 Days #20 capsule predniSONE [PredniSONE] See Taper PO DAILY 7 Days #21 tablet Home Medications: Amitriptyline [Elavil] 40 mg PO HS 07/04/16 [History] Escitalopram [Lexapro] 20 mg PO DAILY 07/04/16 [History] Esomeprazole Magnesium [Nexium] 40 mg PO DAILY 07/04/16 [History] LORazepam [Ativan] 1 mg PO QID 07/04/16 [History] Metoprolol [Lopressor] 25 mg PO BID 07/04/16 [History] Oxycodone HCl/Acetaminophen [Percocet 10-325 mg Tablet] 1 tab PO Q8H PRN 07/04/16 [History] Risedronate Sodium [Actonel] 35 mg PO QWEEK 07/04/16 [History] Simvastatin [Zocor] 20 mg PO HS 07/04/16 [History] Sucralfate [Carafate] 1 gm PO QIDAC 07/04/16 [History] Furosemide [Lasix] 20 mg PO BID #60 tablet 11/16/17 [Rx] Donepezil HCl [Aricept] 10 mg PO DAILY 01/23/18 [History] Budesonide/Formoterol 160/4.5 [Symbicort 160/4.5] 2 puff IH BIDR 30 Days #1 inh 04/20/18 [Rx] Lisinopril [Zestril] 40 mg PO DAILY 07/11/18 [History] Potassium Chloride [K-Tab ER] 10 meq PO BID 07/11/18 [History] metFORMIN [Glucophage] 500 mg PO BIDWM 07/11/18 [History] Cefdinir [Omnicef] 300 mg PO BID 10 Days #20 capsule 07/13/18 [Rx] predniSONE [PredniSONE] See Taper PO DAILY 7 Days #21 tablet 07/13/18 [Rx] Allergies/Adverse Reactions: Allergy/AdvReac Type Severity Reaction Status Date / Time haloperidol Allergy Hallucinati Verified 09/09/17 13:46 ng Certification: Further, I certify that my clinical findings support that this patient is homebound (i.e. absences from home require considerable and taxing effort and are for medical reasons or quaker services or infrequently or short duration when for other reasons) because: Homebound Reason: Patient requires assistance of a person or device to safely leave home Attestation: My signature below is to certify that this patient is under my care and that I, or nurse practitioner, or a physician's assistant golf course superintendent working with me, has a [id number] encounter with this patient.
[2018-07-13] MEDS: Acetaminophen 325 MG TABLET PO PRN ×2 (15:59→21:40)
[2018-07-13] MEDS: *HR* OxyCODONE/APAP 10/325 TABLET PO PRN (17:01)
--- NOTE | 2018-07-13 20:35 | Electrocardiograph Report ---
[address] [address] Test Date: 2018-07-12 Pat Name: Amira Nieto Department: 112 Room: 2A Gender: F Tier In: : 1940 Requested By: Keke Valles Order Number: [id number] Reading MD: Cony Valle Measurements Intervals [place] Rate: 92 P: 100 ND: 174 QRS: 1 QRSD: 166 T: 98 QT: 407 QTc: 457 Interpretive Statements SINUS RHYTHM LEFT BUNDLE BRANCH BLOCK Electronically Signed On 07-13-2018 20:33:58 EDT by Cony Valle
[2018-07-14] MEDS: Ipratropium/Albuterol Neb 3 ML IH SCH ×3 (04:15→11:13)
[2018-07-14] MEDS: *HR* Heparin 5,000 UNIT/ML VIAL SQ SCH (05:47)
[2018-07-14] MEDS: Acetaminophen 325 MG TABLET PO PRN (05:47)
[2018-07-14] MEDS: Insulin LISPRO 300 UNITS/3 ML VIAL SQ SCH ×2 (07:45→11:10)
[2018-07-14] MEDS: 0.9 % Sodium Chloride 1,000 ML IVC SCH (08:31)
[2018-07-14] MEDS: predniSONE 20 MG TABLET PO SCH (08:32)
[2018-07-14] MEDS ORDERED: Cefdinir 300 MG CAPSULE PO SCH (09:00)
[2018-07-14 12:05] VITALS: BP 138/82
== END 2018-07-14 13:12 | disposition home health service (06) | DRG 871 ==
LOC: 3BNU 18:28 → EMEROOARM 18:28 → ICNU 07-10 00:52 → SUATTDRO 07-10 01:29 → ICNU 07-10 01:47 → 2ANU 07-11 14:28
PROVIDERS: ADMIT Internal Medicine; ATTEND Internal Medicine

== ENCOUNTER 2018-12-14 03:39 | Observation (INO) ==
[2018-12-14 04:55] LABS: Basophils % 0.8 %; Eosinophils # 0.1 K/mcL (0.0-0.6); Eosinophils % 1.9 %; Hematocrit 30.6 % (35.3-44.9); Hemoglobin 10.2 g/dL (11.5-15.4); Immature Granulocytes % 0.4 % (0-4); Lymphocytes # 0.7 K/mcL (0.6-4.6); Mean Corpuscular HGB Conc 33.3 g/dL (31.6-35.5); Mean Corpuscular Hemoglobin 29.3 pg (28.0-33.3); Mean Corpuscular Volume 87.9 fL (83.0-100.0); Monocytes # 0.5 K/mcL (0.0-1.3); Monocytes % 10.1 %; Neutrophils # 3.8 K/mcL (1.6-8.9); Platelet Count 104 K/mcL (140-400); Red Blood Count 3.48 M/mcL (3.82-4.97); Red Cell Distribution Width 14.8 % (11.5-14.5); Segmented Neutrophils % 72.8 %; White Blood Count 5.2 K/mcL (4.3-11.1)
[2018-12-14 04:59] LABS: Bilirubin,Urine Negative (Negative); Blood,Urine Small (Negative); Clarity,Urine Cloudy (Clear); Color,Urine Yellow (Yellow); Glucose,Urine (UA) Normal (Normal); Ketones,Urine Negative (Negative); Leukocyte Esterase,Urine Large (Negative); Nitrite,Urine Negative (Negative); Protein,Urine Negative (Neg-Trace); Urobilinogen,Urine Normal (Normal)
[2018-12-14 05:00] LABS: Bacteria,Urine None Seen per hpf (None-Few); Hyaline Casts,Urine None Seen per lpf (None-Few); Squamous Epithelial Cell,Urine Moderate per lpf (None-Few); WBC,Urine TNTC per hpf (0-3)
[2018-12-14 05:21] LABS: BUN/Creatinine Ratio 35 (6-26); Blood Urea Nitrogen 52 mg/dL (8-23); Carbon Dioxide 23 mEq/L (23-29); Chloride 100 mEq/L (98-107); Glucose 103 mg/dL (70-105); Magnesium 1.5 mg/dL (1.6-2.6); Osmolality,Calculated 290 (280-300); Potassium 4.3 mEq/L (3.5-5.1); Sodium 133 mEq/L (136-145); Troponin I < 0.03 ng/mL (< 0.04); eGFR For African Americans 42 (> 60); eGFR For Non-African Americans 34 (> 60)
[2018-12-14] MEDS ORDERED: cefTRIAXone 1,000 MG in Water for inj. (sterile) 10 ML IVP ONE (06:04)
[2018-12-14] MEDS ORDERED: 0.9 % Sodium Chloride 1,000 ML IVC ONE (06:19)
[2018-12-14 06:27] LABS: Alanine Aminotransferase 13 Units/L (7-52); Albumin 3.4 g/dL (3.5-5.7); Albumin/Globulin Ratio 0.9 (1.1-2.2); Alkaline Phosphatase 108 Units/L (34-104); Aspartate Amino Transferase 21 Units/L (13-39); Bilirubin,Direct 0.2 mg/dL (0.0-0.2); Bilirubin,Indirect 0.3 mg/dL (0.0-1.2); Bilirubin,Total 0.5 mg/dL (0.3-1.0); Globulin 3.7 g/dL (2.4-3.5); Total Protein 7.1 g/dL (6.4-8.9)
[2018-12-14 06:34] LABS: INR 1.1; Prothrombin Time 12.8 Seconds (9.4-12.1)
[2018-12-14] MEDS ORDERED: cefTRIAXone 1,000 MG in Water for inj. (sterile) 10 ML IVP SCH (07:00)
[2018-12-14] MEDS ORDERED: 0.9 % Sodium Chloride 1,000 ML ONE (07:53)
[2018-12-14] MEDS ORDERED: Ondansetron 4 MG/2 ML VIAL IVP PRN (08:01)
[2018-12-14] MEDS ORDERED: Naloxone 0.4 MG/ML INJ IVP PRN (08:01)
[2018-12-14] MEDS: 0.9 % Sodium Chloride 1,000 ML IVC SCH ×2 (08:13→18:01)
[2018-12-14] MEDS ORDERED: *HR* LORazepam 1 MG TABLET PO PRN (15:19)
[2018-12-14] MEDS ORDERED: NON-FORMULARY MEDICATION 1 EACH EACH (Risedronate Sodium [Actonel] 35 MG) PO SCH (15:30)
[2018-12-14] MEDS ORDERED: *HR* Metformin 500 MG TABLET PO SCH (17:00)
[2018-12-14] MEDS ORDERED: Furosemide 20 MG TABLET PO SCH (17:15)
[2018-12-14] MEDS: Sucralfate 1 GM TABLET PO SCH ×2 (17:53→20:58)
[2018-12-15 04:36] LABS: Red Cell Distribution Width 14.8 % (11.5-14.5)
[2018-12-15 04:37] LABS: Basophils % 0.9 %; Eosinophils # 0.1 K/mcL (0.0-0.6); Eosinophils % 2.2 %; Immature Granulocytes % 0.4 % (0-4); Immature Platelets 1.9 % (1.1-6.1); Lymphocytes # 0.5 K/mcL (0.6-4.6); Lymphocytes % 22.1 %; Mean Corpuscular HGB Conc 33.3 g/dL (31.6-35.5); Mean Corpuscular Hemoglobin 29.5 pg (28.0-33.3); Mean Corpuscular Volume 88.5 fL (83.0-100.0); Mean Platelet Volume 10.1 fL (9.4-12.4); Monocytes # 0.2 K/mcL (0.0-1.3); Monocytes % 10.2 %; Neutrophils # 1.5 K/mcL (1.6-8.9); Red Blood Count 3.05 M/mcL (3.82-4.97); Segmented Neutrophils % 64.2 %; White Blood Count 2.3 K/mcL (4.3-11.1)
[2018-12-15 04:40] LABS: INR 1.2; Prothrombin Time 13.2 Seconds (9.4-12.1)
[2018-12-15 04:41] LABS: Platelet Count 73 K/mcL (140-400)
[2018-12-15 04:43] LABS: Activated Partial Thrombo Time 29.9 Seconds (26.0-36.0)
[2018-12-15 04:59] LABS: Albumin 2.9 g/dL (3.5-5.7); Bilirubin,Total 0.4 mg/dL (0.3-1.0); Calcium 8.5 mg/dL (8.6-10.3); Chol/HDL Ratio 3.4 (0-4.9); Globulin 2.9 g/dL (2.4-3.5); Magnesium 1.4 mg/dL (1.6-2.6); Phosphorous 2.5 mg/dL (2.7-4.5); Potassium 4.2 mEq/L (3.5-5.1); Total Protein 5.8 g/dL (6.4-8.9)
[2018-12-15] MEDS: Sucralfate 1 GM TABLET PO SCH ×4 (05:22→21:03)
[2018-12-15] MEDS ORDERED: *HR* Dextrose 50 % in Water (Syg) 50 ML SYRINGE IVP PRN (05:32)
[2018-12-15] MEDS ORDERED: Dextrose Gel 15 GM/37.5 ML TUBE PO PRN ×2 (05:32)
[2018-12-15] MEDS ORDERED: D5% in Water 1,000 ML IVC PRN (05:32)
[2018-12-15 08:30] LABS: Estimated Average Glucose 120 mg/dl
[2018-12-15] MEDS: cefTRIAXone 1,000 MG in Water for inj. (sterile) 10 ML IVP SCH (08:39)
[2018-12-15] MEDS: Insulin LISPRO 300 UNITS/3 ML VIAL SQ SCH ×3 (08:44→16:59)
[2018-12-15] MEDS ORDERED: Insulin LISPRO 300 UNITS/3 ML VIAL SQ SCH (21:00)
[2018-12-16] MEDS: *HR* OxyCODONE/APAP 10/325 TABLET PO PRN ×2 (01:19→09:27)
[2018-12-16 02:39] LABS: Red Cell Distribution Width 14.6 % (11.5-14.5)
[2018-12-16 02:41] LABS: Hematocrit 27.1 % (35.3-44.9); Immature Platelets 2.4 % (1.1-6.1); Mean Corpuscular HGB Conc 33.2 g/dL (31.6-35.5); Mean Corpuscular Hemoglobin 29.4 pg (28.0-33.3); Mean Corpuscular Volume 88.6 fL (83.0-100.0); Mean Platelet Volume 10.3 fL (9.4-12.4); Red Blood Count 3.06 M/mcL (3.82-4.97); White Blood Count 2.3 K/mcL (4.3-11.1)
[2018-12-16 02:57] LABS: BUN/Creatinine Ratio 29 (6-26); Blood Urea Nitrogen 30 mg/dL (8-23); Calcium 8.7 mg/dL (8.6-10.3); Carbon Dioxide 25 mEq/L (23-29); Chloride 103 mEq/L (98-107); Glucose 104 mg/dL (70-105); Osmolality,Calculated 280 (280-300); Potassium 4.6 mEq/L (3.5-5.1); Sodium 132 mEq/L (136-145); eGFR For African Americans > 60 (> 60); eGFR For Non-African Americans 52 (> 60)
[2018-12-16] MEDS: Sucralfate 1 GM TABLET PO SCH ×2 (06:06→13:18)
[2018-12-16] MEDS: cefTRIAXone 1,000 MG in Water for inj. (sterile) 10 ML IVP SCH (06:06)
[2018-12-16] MEDS: Insulin LISPRO 300 UNITS/3 ML VIAL SQ SCH ×2 (08:33→13:16)
[2018-12-16 16:03] VITALS: BP 115/63
== END 2018-12-16 18:20 | disposition home health service (06) ==
LOC: 3BNU 03:39 → EMEROOARM 03:39 → SUATTDRO 06:33 → 3BNU 06:43
PROVIDERS: ADMIT Pediatrics; ATTEND Family Medicine

== ENCOUNTER 2018-12-19 20:28 | Inpatient (IN) ==
[2018-12-19] MEDS ORDERED: 0.9 % Sodium Chloride 500 ML IVC ONE (21:18)
[2018-12-19] MEDS ORDERED: Isovue-370 500 ML BOTTLE IVP ONE (21:19)
--- NOTE | 2018-12-19 21:27 | Emergency Department Note ---
Disposition Clinical Impression: Perforated ulcer, Frail elderly, Renal insufficiency, Abnormal EKG, Recent urinary tract infection, Lactic acidosis, Cirrhosis Abdominal pain Qualifiers: Abdominal location: generalized Qualified Code(s): R10.84 - Generalized abdominal pain Hypotension Qualifiers: Hypotension type: unspecified hypotension type Qualified Code(s): I95.9 - Hypotension, unspecified Disposition: Admitted As Inpatient Referrals: Sy Beaver DO [Primary Care Provider] - Forms: ED Satisfaction Letter, Work/School Release Time of Disposition: 00:50 Abdominal Pain HPI - General Chief Complaint: ED Abdominal Pain Stated Complaint: ABD PAIN Time Seen by Provider: 12/19/18 20:56 Source: family, EMS Mode of arrival: EMS Limitations: other (dementia) Nursing Notes Reviewed: Yes Vital Signs Reviewed: Yes - History of Present Illness HPI Narrative: Ms. Nieto is a 78 yo female with PMH of CHF, HTN, HLD, DM, dementia, and cirrhosis, presents the emergency department via EMS with acute onset abdominal pain that began earlier today. She lives with family and they became concerned because she felt warm, was pale and diaphoretic, and began complaining of abdominal pain. They think she is slightly more confused than normal as well. Associated symptoms include nausea, dyspnea, and cold legs. Recently was discharged from the hospital 3 days ago for treatment for UTI. She is still on amoxicillin for this, but reports dysuria. She had some diarrhea soon after discharge, but family felt this was related to antibiotics. She has not had a bowel movement today. Denies chest pain or extremity pain. Pain Scale: 9 - Related Data Home Medications Medication Instructions Recorded Confirmed Amitriptyline [Elavil] 40 mg PO HS 07/04/16 12/19/18 Escitalopram [Lexapro] 40 mg PO DAILY 07/04/16 12/19/18 Oxycodone HCl/Acetaminophen 1 tab PO Q8H PRN 07/04/16 12/19/18 [Percocet 10-325 mg Tablet] Risedronate Sodium [Actonel] 35 mg PO QWEEK 07/04/16 12/19/18 Simvastatin [Zocor] 20 mg PO HS 07/04/16 12/19/18 Sucralfate [Carafate] 1 gm PO QIDAC 07/04/16 12/19/18 Donepezil HCl [Aricept] 10 mg PO DAILY 01/23/18 12/19/18 Potassium Chloride [K-Tab ER] 10 meq PO BID 07/11/18 12/19/18 Metoprolol [Lopressor] 25 mg PO BID 12/19/18 12/19/18 Previous Rx's Medication Instructions Recorded Furosemide [Lasix] 20 mg PO BID #60 tablet 11/16/17 Amoxicillin [Amoxil] 500 mg PO Q8HR #15 capsule 12/16/18 Lactobacillus Acidophilus 1 mg PO BID #10 tablet 12/16/18 [Acidophilus Probiotic] Allergies Allergy/AdvReac Type Severity Reaction Status Date / Time haloperidol Allergy Hallucinati Verified 12/19/18 20:54 ng Review of Systems: Admits to subjective fevers, diaphoresis, abdominal pain, nausea, dysuria, and dyspnea. Denies chest pain, trauma, vomiting, or edema. All systems ED: reviewed and negative except as stated. Review of Systems: As Per HPI Abdominal Pain PMH - Past Medical History Medical history: Reports: cirrhosis, dementia, diabetes, GERD, hyperlipidemia, hypertension, other Female Surgical History: Reports: other ASSISTANT history: Reports: no ASSISTANT history Psychiatric history: Reports: depression - Social History Smoking status: Never smoker Alcohol use: Reports: unknown Drug use: Reports: none Physical Exam GEN: cool, clammy, appears uncomfortable, A&O2 HEAD: Atraumatic, normocephalic EYES: Pupils symmetric, pinpoint, sclera white, conjunctiva pink MOUTH: dry mucous membranes HEART: RRR, normal S1 and S2, no murmurs LUNGS: Clear to auscultation bilaterally, no wheezes, rhonchi, or crackles ABD: Soft, diffuse tenderness, distended, + guarding, bowel sounds present EXT: trace edema noted, pulses 2/4 NEURO: No focal deficits, cooperative with exam, moving all extremities, sensation intact - General Limitations: altered mental status, physical limitation, other General appearance: alert - Head Head exam: atraumatic, normocephalic, normal inspection - Eye Eye exam: Present: PERRL, EOMI, miosis - ENT ENT exam: normal exam, normal oropharynx, mucous membranes moist, TM's normal bilaterally, normal external ear exam - Neck Neck exam: Present: normal inspection, full ROM, trachea midline - Chest Chest inspection: Present: symmetric chest wall rise. Absent: tenderness - Respiratory Respiratory exam: Present: normal lung sounds bilaterally. Absent: respiratory distress, prolonged expiratory phase - Cardiovascular Cardiovascular exam: Present: regular rate, normal rhythm, normal heart sounds - Abdominal Exam Abdominal exam: Present: soft, tenderness, rebound. Absent: distention, guarding, rigidity, normal bowel sounds Abdominal tenderness: Present: severe - Extremities Exam Extremities exam: Present: normal inspection, full ROM, normal capillary refill. Absent: tenderness, pedal edema, joint swelling, calf tenderness - Expanded Lower Extremity Exam Neurovascular/Tendon exam: Present: normal capillary refill. Absent: motor deficit, sensory deficit, tendon deficit, extremity cold to touch, pallor - Back Exam Back exam: Present: normal inspection. Absent: CVA tenderness (R), CVA tenderness (L), vertebral tenderness - Neurological Exam Neurological exam: Present: alert, CN II-XII intact. Absent: motor sensory deficit - Psychiatric Psychiatric exam: Present: normal affect, normal mood - Skin Skin exam: Present: warm, dry, intact, normal color Course Course Narrative: Initially tachypnic and borderline hypotensive. Given 500ml bolus of fluid with mild improvement in BP. Will give another 500ml of fluid. Will check labs and get abd/pelvis CT with IV contrast. - Reevaluation(s) Reevaluation #1: Notified by nurse of decreasing BP 60's/30's but the patient is continuing to talk and ask about pain medicine. She has been taking oxycodone today. Her pupils are pinpoint. BP improving after starting another fluid bolus, up to 80's/50's. Will start norepi at this time to bring her pressure up to get her over to CT. Will not give more pain medications at this time. There is also some concern of possibly taking too many BP pills today as her family is not sure about her medications. Vital Signs Temperature 97.5 F L 12/19/18 20:35 Pulse Rate 74 12/19/18 20:35 Respiratory Rate 24 12/19/18 20:35 Blood Pressure 88/54 12/19/18 20:35 O2 Sat by Pulse Oximetry 97 12/19/18 20:35 Temperature 97.5 F L 12/19/18 20:35 Pulse Rate 110 12/20/18 00:17 Respiratory Rate 20 12/20/18 00:17 Blood Pressure 81/59 12/20/18 00:17 O2 Sat by Pulse Oximetry 98 12/20/18 00:17 Oxygen Delivery Oxygen Delivery Room Air Abdominal Pain - MDM Narrative Medical decision making narrative: Patient has remained hypotensive ad requiring pressor support. Continuing to give IV fluids. She has a mild increase in SCr and decreased in GFR. Lactic acid is elevated at 3.6, but her LA has been high several times in the past. CT abd/pelvis is pending. UA is normal. No clear source of infection, so no anti biotics have been given. There is concern that she received more opiates and BP meds today than normal that would be contributing to her hypotension. See the attending note for further work-up. Dr. Carranza: I personally evaluated examine the patient with the resident and agree with ther findings assessment and plan. The patient presents the emergency department with acute abdominal pain. Laboratory studies show an elevated lactate with rising lactate, the patient was somewhat hypotensive initial IV fluids were given, her pressure dropped into the 60s systolic but she remained fully alert, Levophed was initiated, her pressure ruth and her heart rate ruth to about 110. Levophed discontinued and IV fluids were given. The patient's heart rate came down to 82 and her blood pressures were in the 80s over 50s and she remained completely alert. On review of the patient's prior discharge summary, an prior element of hypotension was noted. Prior blood pressures were in the 100 systolic range and 90 systolic range. The patient's heart rate is normative. She is alert and answering questions properly. She follows commands well. CT scan abdomen and pelvis reveals what appears to be perforated ulcer. IV Zosyn was initiated. I consulted with the surgeon on-call Dr. Ramos Bingham who came in to evaluate the patient, she will require surgery. The patient'spower of commercial real estate attorney/son confirms full code and wishes to proceed with surgical care. I spoke with the patient directly and she is agreeable. Multiple female relatives came to the emergency department and I reviewed the case and care with them. Dr. Ramos Bingham came to the emergency department and is planning to take the patient to the operating room. The patient's blood pressure dropped again into the 60s, during this time she was completely conversant and followed commands well. We reinitiated Levophed and the patient's blood pressure climbed into the 77 range systolic and the patient's oxygen saturations and heart rate remained stable. The patient is pending emergent surgery. EKG shows a left bundle branch block which is chronic. Laboratory studies reviewed. - Lab Data Lab results reviewed: Yes I reviewed the patient's lab results. Result diagrams: 12/19/18 20:50 12/19/18 20:50 Lab Results 12/19/18 12/19/18 12/19/18 Range/Units 20:50 20:50 20:50 WBC 7.7 D (4.3-11.1) K/mcL RBC 4.78 (3.82-4.97) M/mcL Hgb 13.9 D (11.5-15.4) g/dL Hct 42.4 (35.3-44.9) % MCV 88.7 (83.0-100.0) fL MCH 29.1 (28.0-33.3) pg MCHC 32.8 (31.6-35.5) g/dL RDW 14.7 H (11.5-14.5) % Plt Count 180 D (140-400) K/mcL MPV 9.9 (9.4-12.4) fL Immature Gran % 0.5 (0-4) % Seg Neutrophils % 79.2 % Lymphocytes % 16.1 % Monocytes % 3.0 % Eosinophils % 0.9 % Basophils % 0.3 % Neutrophils # 6.1 (1.6-8.9) K/mcL Lymphocytes # 1.2 (0.6-4.6) K/mcL Monocytes # 0.2 (0.0-1.3) K/mcL Eosinophils # 0.1 (0.0-0.6) K/mcL Basophils # 0.0 (0.0-0.2) K/mcL Sodium 133 L (136-145) mEq/L Potassium 4.3 (3.5-5.1) mEq/L Chloride 98 (98-107) mEq/L Carbon Dioxide 24 (23-29) mEq/L BUN 32 H (8-23) mg/dL Creatinine 1.27 H (0.60-1.20) mg/dL Est GFR ( Amer) 49 L (> 60) Est GFR (Non-Af Amer) 41 L (> 60) BUN/Creatinine Ratio 25 (6-26) Glucose 191 H (70-105) mg/dL POC Glucose (70-99) mg/dL Calculated Osmolality 288 (280-300) Lactic Acid 3.6 H (0.5-2.2) mmol/L Calcium 9.6 (8.6-10.3) mg/dL Total Bilirubin 0.8 (0.3-1.0) mg/dL Direct Bilirubin 0.2 (0.0-0.2) mg/dL Indirect Bilirubin 0.6 (0.0-1.2) mg/dL AST 28 (13-39) Units/L ALT 18 (7-52) Units/L Alkaline Phosphatase 94 (34-104) Units/L Troponin I < 0.03 (< 0.04) ng/mL C-Reactive Protein (Less than 10) mg/L Serum Total Protein 6.0 L (6.4-8.9) g/dL Albumin 2.9 L (3.5-5.7) g/dL Globulin 3.1 (2.4-3.5) g/dL Albumin/Globulin Ratio 0.9 L (1.1-2.2) Amylase 45 (29-103) Units/L Lipase 37 (11-82) Units/L Urine Color (Yellow) Urine Clarity (Clear) Urine pH (5.0-8.0) pH Units Ur Specific Solen (1.010-1.025) Urine Protein (Neg-Trace) mg/dL Urine Glucose (UA) (Normal) mg/dL Urine Ketones (Negative) mg/dL Urine Blood (Negative) Urine Nitrite (Negative) Urine Bilirubin (Negative) Urine Urobilinogen (Normal) mg/dL Ur Leukocyte Esterase (Negative) Ur Culture Indicated? (NO) Urine Opiates Screen (Uoqmia=261) ng/mL Ur Buprenorphine Scrn (Cutoff=5) ng/mL Ur Barbiturates Screen (Dlpgmp=940) ng/mL Ur Phencyclidine Scrn (Cutoff=25) ng/mL Ur Amphetamines Screen (Ihscry=4085) ng/mL U Benzodiazepines Scrn (Vqhwog=062) ng/mL Urine Cocaine Screen (Cutoff= 300) ng/mL U Marijuana (THC) Screen (Cutoff = 50) ng/mL Ur Drug Screen Interp 12/19/18 12/19/18 12/19/18 Range/Units 20:50 20:58 22:12 WBC (4.3-11.1) K/mcL RBC (3.82-4.97) M/mcL Hgb (11.5-15.4) g/dL Hct (35.3-44.9) % MCV (83.0-100.0) fL MCH (28.0-33.3) pg MCHC (31.6-35.5) g/dL RDW (11.5-14.5) % Plt Count (140-400) K/mcL MPV (9.4-12.4) fL Immature Gran % (0-4) % Seg Neutrophils % % Lymphocytes % % Monocytes % % Eosinophils % % Basophils % % Neutrophils # (1.6-8.9) K/mcL Lymphocytes # (0.6-4.6) K/mcL Monocytes # (0.0-1.3) K/mcL Eosinophils # (0.0-0.6) K/mcL Basophils # (0.0-0.2) K/mcL Sodium (136-145) mEq/L Potassium (3.5-5.1) mEq/L Chloride (98-107) mEq/L Carbon Dioxide (23-29) mEq/L BUN (8-23) mg/dL Creatinine (0.60-1.20) mg/dL Est GFR ( Amer) (> 60) Est GFR (Non-Af Amer) (> 60) BUN/Creatinine Ratio (6-26) Glucose (70-105) mg/dL POC Glucose 179 H (70-99) mg/dL Calculated Osmolality (280-300) Lactic Acid (0.5-2.2) mmol/L Calcium (8.6-10.3) mg/dL Total Bilirubin (0.3-1.0) mg/dL Direct Bilirubin (0.0-0.2) mg/dL Indirect Bilirubin (0.0-1.2) mg/dL AST (13-39) Units/L ALT (7-52) Units/L Alkaline Phosphatase (34-104) Units/L Troponin I (< 0.04) ng/mL C-Reactive Protein < 5 (Less than 10) mg/L Serum Total Protein (6.4-8.9) g/dL Albumin (3.5-5.7) g/dL Globulin (2.4-3.5) g/dL Albumin/Globulin Ratio (1.1-2.2) Amylase (29-103) Units/L Lipase (11-82) Units/L Urine Color Yellow (Yellow) Urine Clarity Clear (Clear) Urine pH 5.5 (5.0-8.0) pH Units Ur Specific [place] 1.011 (1.010-1.025) Urine Protein Negative (Neg-Trace) mg/dL Urine Glucose (UA) Normal (Normal) mg/dL Urine Ketones Negative (Negative) mg/dL Urine Blood Negative (Negative) Urine Nitrite Negative (Negative) Urine Bilirubin Negative (Negative) Urine Urobilinogen Normal (Normal) mg/dL Ur Leukocyte Esterase Negative (Negative) Ur Culture Indicated? NO (NO) Urine Opiates Screen (Expllu=885) ng/mL Ur Buprenorphine Scrn (Cutoff=5) ng/mL Ur Barbiturates Screen (Nptfdj=438) ng/mL Ur Phencyclidine Scrn (Cutoff=25) ng/mL Ur Amphetamines Screen (Hgsdza=7966) ng/mL U Benzodiazepines Scrn (Lfnpzv=430) ng/mL Urine Cocaine Screen (Cutoff= 300) ng/mL U Marijuana (THC) Screen (Cutoff = 50) ng/mL Ur Drug Screen Interp 12/19/18 Range/Units 22:30 WBC (4.3-11.1) K/mcL RBC (3.82-4.97) M/mcL Hgb (11.5-15.4) g/dL Hct (35.3-44.9) % MCV (83.0-100.0) fL MCH (28.0-33.3) pg MCHC (31.6-35.5) g/dL RDW (11.5-14.5) % Plt Count (140-400) K/mcL MPV (9.4-12.4) fL Immature Gran % (0-4) % Seg Neutrophils % % Lymphocytes % % Monocytes % % Eosinophils % % Basophils % % Neutrophils # (1.6-8.9) K/mcL Lymphocytes # (0.6-4.6) K/mcL Monocytes # (0.0-1.3) K/mcL Eosinophils # (0.0-0.6) K/mcL Basophils # (0.0-0.2) K/mcL Sodium (136-145) mEq/L Potassium (3.5-5.1) mEq/L Chloride (98-107) mEq/L Carbon Dioxide (23-29) mEq/L BUN (8-23) mg/dL Creatinine (0.60-1.20) mg/dL Est GFR ( Amer) (> 60) Est GFR (Non-Af Amer) (> 60) BUN/Creatinine Ratio (6-26) Glucose (70-105) mg/dL POC Glucose (70-99) mg/dL Calculated Osmolality (280-300) Lactic Acid (0.5-2.2) mmol/L Calcium (8.6-10.3) mg/dL Total Bilirubin (0.3-1.0) mg/dL Direct Bilirubin (0.0-0.2) mg/dL Indirect Bilirubin (0.0-1.2) mg/dL AST (13-39) Units/L ALT (7-52) Units/L Alkaline Phosphatase (34-104) Units/L Troponin I (< 0.04) ng/mL C-Reactive Protein (Less than 10) mg/L Serum Total Protein (6.4-8.9) g/dL Albumin (3.5-5.7) g/dL Globulin (2.4-3.5) g/dL Albumin/Globulin Ratio (1.1-2.2) Amylase (29-103) Units/L Lipase (11-82) Units/L Urine Color (Yellow) Urine Clarity (Clear) Urine pH (5.0-8.0) pH Units Ur Specific Solen (1.010-1.025) Urine Protein (Neg-Trace) mg/dL Urine Glucose (UA) (Normal) mg/dL Urine Ketones (Negative) mg/dL Urine Blood (Negative) Urine Nitrite (Negative) Urine Bilirubin (Negative) Urine Urobilinogen (Normal) mg/dL Ur Leukocyte Esterase (Negative) Ur Culture Indicated? (NO) Urine Opiates Screen Negative (Egftgh=928) ng/mL Ur Buprenorphine Scrn Negative (Cutoff=5) ng/mL Ur Barbiturates Screen Negative (Xvkdvp=572) ng/mL Ur Phencyclidine Scrn Negative (Cutoff=25) ng/mL Ur Amphetamines Screen Negative (Qyghvx=5454) ng/mL U Benzodiazepines Scrn Negative (Vurvyz=708) ng/mL Urine Cocaine Screen Negative (Cutoff= 300) ng/mL U Marijuana (THC) Screen Negative (Cutoff = 50) ng/mL Ur Drug Screen Interp See Below - EKG Data EKG attestation: Yes I reviewed and interpreted this EKG. EKG results narrative: NSR with rate of 76, prolonged QT at 478, widened QRS with upsloping ST segments that is unchanged from old EKG on 12/14/18
[2018-12-19 21:34] LABS: Basophils % 0.3 %; Eosinophils # 0.1 K/mcL (0.0-0.6); Eosinophils % 0.9 %; Hematocrit 42.4 % (35.3-44.9); Immature Granulocytes % 0.5 % (0-4); Lymphocytes # 1.2 K/mcL (0.6-4.6); Lymphocytes % 16.1 %; Mean Corpuscular HGB Conc 32.8 g/dL (31.6-35.5); Mean Corpuscular Hemoglobin 29.1 pg (28.0-33.3); Mean Corpuscular Volume 88.7 fL (83.0-100.0); Mean Platelet Volume 9.9 fL (9.4-12.4); Monocytes # 0.2 K/mcL (0.0-1.3); Neutrophils # 6.1 K/mcL (1.6-8.9); Platelet Count 180 K/mcL (140-400); Red Blood Count 4.78 M/mcL (3.82-4.97); Red Cell Distribution Width 14.7 % (11.5-14.5); Segmented Neutrophils % 79.2 %
[2018-12-19 21:35] LABS: Hemoglobin 13.9 g/dL (11.5-15.4); White Blood Count 7.7 K/mcL (4.3-11.1)
[2018-12-19 21:56] LABS: Alanine Aminotransferase 18 Units/L (7-52); Albumin 2.9 g/dL (3.5-5.7); Albumin/Globulin Ratio 0.9 (1.1-2.2); Alkaline Phosphatase 94 Units/L (34-104); Amylase 45 Units/L (29-103); Aspartate Amino Transferase 28 Units/L (13-39); BUN/Creatinine Ratio 25 (6-26); Bilirubin,Direct 0.2 mg/dL (0.0-0.2); Bilirubin,Indirect 0.6 mg/dL (0.0-1.2); Bilirubin,Total 0.8 mg/dL (0.3-1.0); Blood Urea Nitrogen 32 mg/dL (8-23); Calcium 9.6 mg/dL (8.6-10.3); Carbon Dioxide 24 mEq/L (23-29); Chloride 98 mEq/L (98-107); Globulin 3.1 g/dL (2.4-3.5); Glucose 191 mg/dL (70-105); Lipase 37 Units/L (11-82); Osmolality,Calculated 288 (280-300); Potassium 4.3 mEq/L (3.5-5.1); Sodium 133 mEq/L (136-145); Troponin I < 0.03 ng/mL (< 0.04); eGFR For African Americans 49 (> 60); eGFR For Non-African Americans 41 (> 60)
[2018-12-19 22:18] LABS: Bilirubin,Urine Negative (Negative); Blood,Urine Negative (Negative); Clarity,Urine Clear (Clear); Color,Urine Yellow (Yellow); Glucose,Urine (UA) Normal (Normal); Ketones,Urine Negative (Negative); Leukocyte Esterase,Urine Negative (Negative); Nitrite,Urine Negative (Negative); PH,Urine 5.5 pH Units (5.0-8.0); Protein,Urine Negative (Neg-Trace); Specific Gravity,Urine 1.011 (1.010-1.025); Urobilinogen,Urine Normal (Normal)
[2018-12-19] MEDS ORDERED: Norepinephrine 4 MG in 0.9 % Sodium Chloride 250 ML IVC SCH (22:30)
[2018-12-19] MEDS ORDERED: 0.9 % Sodium Chloride 1,000 ML IVC ONE ×2 (23:42→23:51)
[2018-12-20 00:34] LABS: Amphetamine Screen,Urine Negative ng/mL (Cutoff=1000); Barbiturate Screen,Urine Negative ng/mL (Cutoff=200); Benzodiazepines Screen,Urine Negative ng/mL (Cutoff=200); Cannabinoid Screen,Urine Negative ng/mL (Cutoff = 50); Cocaine Screen,Urine Negative ng/mL (Cutoff= 300); Opiate Screen,Urine Negative ng/mL (Cutoff=300); Phencyclidine Screen,Urine Negative ng/mL (Cutoff=25)
[2018-12-20] MEDS ORDERED: Piperacillin/Tazobactam 3.375 GM in Water for inj. (sterile) 20 ML IVP ONE (02:32)
[2018-12-20] MEDS: 0.9 % Sodium Chloride 1,000 ML IVC SCH ×2 (02:51→06:43)
--- NOTE | 2018-12-20 03:31 | Acute Care Surgery H&P ---
Date of Encounter: 12/20/18 Time of Encounter: 03:00 Assessment and Plan (1) Perforated abdominal viscus Current Visit: Yes Status: Acute The assessment and plan as outlined above was discussed with the patient and/or family members who expressed understanding and agreement. All questions were answered. Consistent with perforated duodenal ulcer. Diagnosis discussed with patient and her family. Recommend immediate OR for exploratory laparotomy with repair of perforated abdominal viscus. Procedure, risk and benefits discussed. Possible complications include those for surgery and septic shock. She will be admitted to ICU after surgery. Continue IV fluid and vasopressor support. To OR char. (2) Septic shock Current Visit: Yes Status: Acute Continue IV fluids, IV abx and vasopressors. Pt is requiring levophed for hemodynamic stability. (3) Cirrhosis Current Visit: Yes Status: Acute The assessment and plan as outlined above was discussed with the patient and/or family members who expressed understanding and agreement. All questions were answered. Qualifiers: Hepatic cirrhosis type: unspecified hepatic cirrhosis Qualified Code(s): K74.60 - Unspecified cirrhosis of liver (4) Dementia Current Visit: No Status: Chronic Pt is pleasant. Family is at her bedside. Qualifiers: Dementia type: unspecified type Dementia behavioral disturbance: without behavioral disturbance Qualified Code(s): F03.90 - Unspecified dementia without behavioral disturbance (5) Diabetes mellitus type 2 in obese Current Visit: No Status: Chronic Stable (6) HTN (hypertension) Current Visit: No Status: Chronic Pt is on betablocker; last taken this am per family. Pt is currently hypotensive. Qualifiers: Hypertension type: essential hypertension Qualified Code(s): I10 - Essential (primary) hypertension History of Present Illness Chief complaint: abdominal pain HPI: Ms. Nieto is a 78 year old female presents to [facility] from home with severe abdom inal pain. She was brought in by family for acute onset diffuse abdominal pain. Pain continues to worsen. She denies nausea or vomiting. There is no bowel changes reported. Fevers at home unknown. Son is pt's POA. Past Med Surg Social Fam HX - Past Medical History Medical history: cirrhosis, dementia, diabetes, GERD, hyperlipidemia, hypertension, other Additional medical history: stomach ulcers, hiatel hernia, metal plate in head, UTI's Psychiatric history: depression - Past Surgical History Surgical History: hysterectomy Additional surgical history: family states "sx for bleeding ulcer" - Social History Smoking Status: Never smoker Smokeless Tobacco Status: No Alcohol use: unknown Drug use: none - Family History Sister Adopted: No Family Member Ethnicity: Non- Living Status: Hx Family Cardiac Disorders: Yes (Brain aneurysm) Hx Family Respiratory Disorders: No Hx Family Cancer: No Hx Family GI Disorders: No Hx Family Endocrine Disorder: No Hx Family Neuromuscular Disorders: No Hx Family Neurologic Disorders: No Hx Family HEENT Disorders: No Hx Family Autoimmune Disorders: No Brother Family Member Ethnicity: Non- Living Status: Hx Family Cardiac Disorders: Yes (HF, CAD) Mother Family Member Ethnicity: Non- Living Status: Hx Family Cardiac Disorders: Yes (HF, CAD, HTN) Father Family Member Ethnicity: Non- Living Status: Hx Family GI Disorders: Yes (Bleeding ulcers) Medications and Allergies Amitriptyline [Elavil] 40 mg PO HS 07/04/16 [History] Escitalopram [Lexapro] 40 mg PO DAILY 07/04/16 [History] Oxycodone HCl/Acetaminophen [Percocet 10-325 mg Tablet] 1 tab PO Q8H PRN 07/04/16 [History] Risedronate Sodium [Actonel] 35 mg PO QWEEK 07/04/16 [History] Simvastatin [Zocor] 20 mg PO HS 07/04/16 [History] Sucralfate [Carafate] 1 gm PO QIDAC 07/04/16 [History] Furosemide [Lasix] 20 mg PO BID #60 tablet 11/16/17 [Rx] Donepezil HCl [Aricept] 10 mg PO DAILY 01/23/18 [History] Potassium Chloride [K-Tab ER] 10 meq PO BID 07/11/18 [History] Amoxicillin [Amoxil] 500 mg PO Q8HR #15 capsule 12/16/18 [Rx] Lactobacillus Acidophilus [Acidophilus Probiotic] 1 mg PO BID #10 tablet 12/16/18 [Rx] Metoprolol [Lopressor] 25 mg PO BID 12/19/18 [History] Allergy/AdvReac Type Severity Reaction Status Date / Time haloperidol Allergy Hallucinati Verified 12/19/18 20:54 ng Review of Systems All systems PM: The remainder of the systems were reviewed and are negative - Constitutional anorexia, fatigue, weakness, no chills, no fever(s), no night sweats - EENT Nose, mouth and throat: dry mouth, no nasal congestion, no nasal discharge, no sinus pain, no sinus pressure, no sore throat - Cardiovascular no chest pain, no diaphoresis, no dyspnea, no edema - Respiratory no cough, no dyspnea, no wheezing - Gastrointestinal abdominal pain, bloating, constipation, no diarrhea, no nausea, no vomiting - Genitourinary Genitourinary: no dysuria, no flank pain, no urinary frequency - Musculoskeletal no back pain, no joint swelling, no limited range of motion, no neck pain - Integumentary dry skin, no pruritus, no rash, no wounds, no jaundice - Neurological confusion (normal for baseline; hx of dementia), weakness, no dizziness, no focal weakness - Psychiatric anxiety, depression - Endocrine fatigue - Hematologic/Lymphatic no easy bleeding, no easy bruising General Surgery Exam Initial Vital Signs Temp Pulse Resp BP Pulse Ox 97.5 F L 74 24 88/54 97 12/19/18 20:35 12/19/18 20:35 12/19/18 20:35 12/19/18 20:35 12/19/18 20:35 - General physical appearance no distress, severe distress, severe pain, other (frail and elderly) - Eyes PERRL, normal ocular movement. negative: icteric - ENT no congestion, dry mucosa. negative: nasal discharge - Neck no masses, trachea midline, no lymphadectomy, no venous distension - Respiratory normal respiratory effort, clear to auscultation - Cardiovascular Cardiovascular exam: Present: RRR. Absent: JVD Additional Comments: severe hypotension requiring vasopressor - Abdomen Abdomen general surgery: Present: bowel sounds present (hypoactive), distended, tender (acute abdomen), guarding, rebound Abdominal Tenderness: Present: diffusely - Genitourinary Present: normal external genitalia - Integumentary Integumentary general surgery: Present: warm and dry - Neurologic Present: CN 2-12 grossly intact, disoriented - Musculoskeletal Present: normal posture - Psychiatric Psychiatric general surgery: Present: other (awake and alert and in distress due to abdominal pain) Results - Labs 12/19/18 20:50 12/19/18 20:50 Abnormal lab results RDW 14.7 % (11.5-14.5) H 12/19/18 20:50 Sodium 133 mEq/L (136-145) L 12/19/18 20:50 BUN 32 mg/dL (8-23) H 12/19/18 20:50 Creatinine 1.27 mg/dL (0.60-1.20) H 12/19/18 20:50 Est GFR ( Amer) 49 (> 60) L 12/19/18 20:50 Est GFR (Non-Af Amer) 41 (> 60) L 12/19/18 20:50 Glucose 191 mg/dL (70-105) H 12/19/18 20:50 POC Glucose 179 mg/dL (70-99) H 12/19/18 20:58 Lactic Acid 4.8 mmol/L (0.5-2.2) H* 12/20/18 00:48 Serum Total Protein 6.0 g/dL (6.4-8.9) L 12/19/18 20:50 Albumin 2.9 g/dL (3.5-5.7) L 12/19/18 20:50 Albumin/Globulin Ratio 0.9 (1.1-2.2) L 12/19/18 20:50 Diabetes panel 12/19/18 Range/Units 20:50 Sodium 133 L (136-145) mEq/L Potassium 4.3 (3.5-5.1) mEq/L Chloride 98 (98-107) mEq/L Carbon Dioxide 24 (23-29) mEq/L BUN 32 H (8-23) mg/dL Creatinine 1.27 H (0.60-1.20) mg/dL Glucose 191 H (70-105) mg/dL Calcium 9.6 (8.6-10.3) mg/dL AST 28 (13-39) Units/L ALT 18 (7-52) Units/L Alkaline Phosphatase 94 (34-104) Units/L Albumin 2.9 L (3.5-5.7) g/dL Calcium panel 12/19/18 Range/Units 20:50 Calcium 9.6 (8.6-10.3) mg/dL Albumin 2.9 L (3.5-5.7) g/dL Pituitary panel 12/19/18 Range/Units 20:50 Sodium 133 L (136-145) mEq/L Potassium 4.3 (3.5-5.1) mEq/L Chloride 98 (98-107) mEq/L Carbon Dioxide 24 (23-29) mEq/L BUN 32 H (8-23) mg/dL Creatinine 1.27 H (0.60-1.20) mg/dL Glucose 191 H (70-105) mg/dL Calcium 9.6 (8.6-10.3) mg/dL Adrenal panel 12/19/18 Range/Units 20:50 Sodium 133 L (136-145) mEq/L Potassium 4.3 (3.5-5.1) mEq/L Chloride 98 (98-107) mEq/L Carbon Dioxide 24 (23-29) mEq/L BUN 32 H (8-23) mg/dL Creatinine 1.27 H (0.60-1.20) mg/dL Glucose 191 H (70-105) mg/dL Calcium 9.6 (8.6-10.3) mg/dL Total Bilirubin 0.8 (0.3-1.0) mg/dL AST 28 (13-39) Units/L ALT 18 (7-52) Units/L Alkaline Phosphatase 94 (34-104) Units/L Albumin 2.9 L (3.5-5.7) g/dL All other labs normal. - Imaging CT scan - abdomen: image reviewed (Perforated duodenal ulcer with small volume pneumoperitoneum. Suspected mucosal defect measures approximately 1 cm in size.) CT scan - pelvis: image reviewed
--- NOTE | 2018-12-20 04:11 | Anesthesia Evaluation PreOp ---
Date of Encounter: 12/20/18 Time of Encounter: 04:10 - Past History Planned Operation: Exploratory Lap Cardiac History: HTN Pulmonary History: Denies Any Significant HX PHOTOGRAPHY INTERN History: Other (Dementia) Other Medical History: Hepatic (Cirrhosis), Renal (CKD), Diabetes Type II Anesthesia History: No Prior Anesthetic Complications Alcohol Use: unknown Drug use: none Medications and Allergies Amitriptyline [Elavil] 40 mg PO HS 07/04/16 [History] Escitalopram [Lexapro] 40 mg PO DAILY 07/04/16 [History] Oxycodone HCl/Acetaminophen [Percocet 10-325 mg Tablet] 1 tab PO Q8H PRN 07/04/16 [History] Risedronate Sodium [Actonel] 35 mg PO QWEEK 07/04/16 [History] Simvastatin [Zocor] 20 mg PO HS 07/04/16 [History] Sucralfate [Carafate] 1 gm PO QIDAC 07/04/16 [History] Furosemide [Lasix] 20 mg PO BID #60 tablet 11/16/17 [Rx] Donepezil HCl [Aricept] 10 mg PO DAILY 01/23/18 [History] Potassium Chloride [K-Tab ER] 10 meq PO BID 07/11/18 [History] Amoxicillin [Amoxil] 500 mg PO Q8HR #15 capsule 12/16/18 [Rx] Lactobacillus Acidophilus [Acidophilus Probiotic] 1 mg PO BID #10 tablet 9 [Rx] Metoprolol [Lopressor] 25 mg PO BID 12/19/18 [History] Allergy/AdvReac Type Severity Reaction Status Date / Time haloperidol Allergy Hallucinati Verified 12/19/18 20:54 ng - Meds/Allergy Pre-op Review Medications Reviewed: Yes Allergies Reviewed: Yes Beta Blockers on Current Med List: No Anesthesia Results - Labs 12/19/18 20:50 12/19/18 20:50 - Imaging EKG: report reviewed (SR Left BBB) Anesthesia Exam O2 Sat Height 1.65 m Weight 66.678 kg O2 Sat by Pulse Oximetry 98 O2 Sat by Pulse Oximetry 97 O2 Sat by Pulse Oximetry 97 O2 Sat by Pulse Oximetry 97 O2 Sat by Pulse Oximetry 95 O2 Sat by Pulse Oximetry 96 O2 Sat by Pulse Oximetry 95 O2 Sat by Pulse Oximetry 96 O2 Sat by Pulse Oximetry 98 O2 Sat by Pulse Oximetry 97 O2 Sat by Pulse Oximetry 98 O2 Sat by Pulse Oximetry 96 O2 Sat by Pulse Oximetry 99 O2 Sat by Pulse Oximetry 99 O2 Sat by Pulse Oximetry 97 O2 Sat by Pulse Oximetry 97 O2 Sat by Pulse Oximetry 97 O2 Sat by Pulse Oximetry 100 O2 Sat by Pulse Oximetry 95 O2 Sat by Pulse Oximetry 97 O2 Sat by Pulse Oximetry 97 Vital Signs Temp Pulse Resp BP Pulse Ox 97.5 F L 74 24 88/54 97 12/19/18 20:35 12/19/18 20:35 12/19/18 20:35 12/19/18 20:35 12/19/18 20:35 Height: 5'5 Weight: 147 lbs NPO (# of Hours): MN - HEENT Pupil (Motor): Pupils equal, EOMI Oral Opening: Less than or equal to 3 - PHOTOGRAPHY INTERN LOC: Confused PHOTOGRAPHY INTERN Motor: Normal RUE, Normal LUE, Normal RLE, Normal LLE, Normal Face PHOTOGRAPHY INTERN Sensory: Normal: RUE, LUE, RLE, LLE, Face - Cardiac Rhythm: Regular Murmur: None JVD: No Carotid Bruit: No - Pulmonary Breath Sounds: bilateral Clear Respiratory Effort: Symmetrical Anesthesia Assess/Plan ASA Score: 4 (HTN Dementia DM) Level of consciousness: Cooperative, Oriented Anesthetic Plan: General Autologous Blood: No Monitoring Plan: Standard Monitors Recovery Plan: ICU (Discussed GA, high risk, agrees to proceed)
[2018-12-20] MEDS ORDERED: *HR* Vasopressin 20 UNIT/ML VIAL ONE (04:16)
[2018-12-20] MEDS ORDERED: *HR* FentaNYL (PF) 100 MCG/2 ML VIAL ONE (04:19)
[2018-12-20] MEDS ORDERED: *HR* Propofol 200 MG/20 ML VIAL IVP ONE (04:19)
[2018-12-20] MEDS ORDERED: *HR* Rocuronium Bromide 50 MG/5 ML VIAL ONE (04:20)
[2018-12-20] MEDS ORDERED: Heparin 1,000 UNITS/500 mL 500 ML ONE (04:25)
[2018-12-20] MEDS ORDERED: *HR* Heparin 5,000 UNIT/ML VIAL SQ SCH (06:00)
--- NOTE | 2018-12-20 06:00 | AcuteCare Surgery Consult Note ---
Date of Encounter: 12/20/18 Time of Encounter: 06:00 Assessment and Plan (1) Perforated abdominal viscus Current Visit: Yes Status: Acute (2) Septic shock Current Visit: Yes Status: Acute (3) Cirrhosis Current Visit: Yes Status: Acute Qualifiers: Hepatic cirrhosis type: unspecified hepatic cirrhosis Qualified Code(s): K74.60 - Unspecified cirrhosis of liver (4) Dementia Current Visit: No Status: Chronic Qualifiers: Dementia type: unspecified type Dementia behavioral disturbance: without behavioral disturbance Qualified Code(s): F03.90 - Unspecified dementia without behavioral disturbance (5) Diabetes mellitus type 2 in obese Current Visit: No Status: Chronic (6) HTN (hypertension) Current Visit: No Status: Chronic Qualifiers: Hypertension type: essential hypertension Qualified Code(s): I10 - Puneet macias (primary) hypertension History of Present Illness Consult date: 12/20/18 Reason for consult: abdominal pain Past Med Surg Social Fam HX - Past Medical History Medical history: cirrhosis, dementia, diabetes, GERD, hyperlipidemia, hypertension, other Additional medical history: stomach ulcers, hiatel hernia, metal plate in head, UTI's Psychiatric history: depression - Past Surgical History Surgical History: hysterectomy Additional surgical history: family states "sx for bleeding ulcer" - Social History Smoking Status: Never smoker Smokeless Tobacco Status: No Alcohol use: unknown Drug use: none - Family History Sister Adopted: No Family Member Ethnicity: Non- Living Status: Hx Family Cardiac Disorders: Yes (Brain aneurysm) Hx Family Respiratory Disorders: No Hx Family Cancer: No Hx Family GI Disorders: No Hx Family Endocrine Disorder: No Hx Family Neuromuscular Disorders: No Hx Family Neurologic Disorders: No Hx Family HEENT Disorders: No Hx Family Autoimmune Disorders: No Brother Family Member Ethnicity: Non- Living Status: Hx Family Cardiac Disorders: Yes (HF, CAD) Mother Family Member Ethnicity: Non- Living Status: Hx Family Cardiac Disorders: Yes (HF, CAD, HTN) Father Family Member Ethnicity: Non- Living Status: Hx Family GI Disorders: Yes (Bleeding ulcers) Medications and Allergies Amitriptyline [Elavil] 40 mg PO HS 07/04/16 [History] Escitalopram [Lexapro] 40 mg PO DAILY 07/04/16 [History] Oxycodone HCl/Acetaminophen [Percocet 10-325 mg Tablet] 1 tab PO Q8H PRN 07/04/16 [History] Risedronate Sodium [Actonel] 35 mg PO QWEEK 07/04/16 [History] Simvastatin [Zocor] 20 mg PO HS 07/04/16 [History] Sucralfate [Carafate] 1 gm PO QIDAC 07/04/16 [History] Furosemide [Lasix] 20 mg PO BID #60 tablet 11/16/17 [Rx] Donepezil HCl [Aricept] 10 mg PO DAILY 01/23/18 [History] Potassium Chloride [K-Tab ER] 10 meq PO BID 07/11/18 [History] Amoxicillin [Amoxil] 500 mg PO Q8HR #15 capsule 12/16/18 [Rx] Lactobacillus Acidophilus [Acidophilus Probiotic] 1 mg PO BID #10 tablet 12/16/18 [Rx] Metoprolol [Lopressor] 25 mg PO BID 12/19/18 [History] Allergy/AdvReac Type Severity Reaction Status Date / Time haloperidol Allergy Hallucinati Verified 12/19/18 20:54 ng Review of Systems All systems PM: The remainder of the systems were reviewed and are negative General Surgery Exam Initial Vital Signs Temp Pulse Resp BP Pulse Ox 97.5 F L 74 24 88/54 97 12/19/18 20:35 12/19/18 20:35 12/19/18 20:35 12/19/18 20:35 12/19/18 20:35 Exam Initial Vital Signs Temp Pulse Resp BP Pulse Ox 97.5 F L 74 24 88/54 97 12/19/18 20:35 12/19/18 20:35 12/19/18 20:35 12/19/18 20:35 12/19/18 20:35 Results - Labs 12/19/18 20:50 12/19/18 20:50 Abnormal lab results RDW 14.7 % (11.5-14.5) H 12/19/18 20:50 Sodium 133 mEq/L (136-145) L 12/19/18 20:50 BUN 32 mg/dL (8-23) H 12/19/18 20:50 Creatinine 1.27 mg/dL (0.60-1.20) H 12/19/18 20:50 Est GFR ( Amer) 49 (> 60) L 12/19/18 20:50 Est GFR (Non-Af Amer) 41 (> 60) L 12/19/18 20:50 Glucose 191 mg/dL (70-105) H 12/19/18 20:50 POC Glucose 179 mg/dL (70-99) H 12/19/18 20:58 Lactic Acid 4.8 mmol/L (0.5-2.2) H* 12/20/18 00:48 Serum Total Protein 6.0 g/dL (6.4-8.9) L 12/19/18 20:50 Albumin 2.9 g/dL (3.5-5.7) L 12/19/18 20:50 Albumin/Globulin Ratio 0.9 (1.1-2.2) L 12/19/18 20:50 Diabetes panel 12/19/18 Range/Units 20:50 Sodium 133 L (136-145) mEq/L Potassium 4.3 (3.5-5.1) mEq/L Chloride 98 (98-107) mEq/L Carbon Dioxide 24 (23-29) mEq/L BUN 32 H (8-23) mg/dL Creatinine 1.27 H (0.60-1.20) mg/dL Glucose 191 H (70-105) mg/dL Calcium 9.6 (8.6-10.3) mg/dL AST 28 (13-39) Units/L ALT 18 (7-52) Units/L Alkaline Phosphatase 94 (34-104) Units/L Albumin 2.9 L (3.5-5.7) g/dL Calcium panel 12/19/18 Range/Units 20:50 Calcium 9.6 (8.6-10.3) mg/dL Albumin 2.9 L (3.5-5.7) g/dL Pituitary panel 12/19/18 Range/Units 20:50 Sodium 133 L (136-145) mEq/L Potassium 4.3 (3.5-5.1) mEq/L Chloride 98 (98-107) mEq/L Carbon Dioxide 24 (23-29) mEq/L BUN 32 H (8-23) mg/dL Creatinine 1.27 H (0.60-1.20) mg/dL Glucose 191 H (70-105) mg/dL Calcium 9.6 (8.6-10.3) mg/dL Adrenal panel 12/19/18 Range/Units 20:50 Sodium 133 L (136-145) mEq/L Potassium 4.3 (3.5-5.1) mEq/L Chloride 98 (98-107) mEq/L Carbon Dioxide 24 (23-29) mEq/L BUN 32 H (8-23) mg/dL Creatinine 1.27 H (0.60-1.20) mg/dL Glucose 191 H (70-105) mg/dL Calcium 9.6 (8.6-10.3) mg/dL Total Bilirubin 0.8 (0.3-1.0) mg/dL AST 28 (13-39) Units/L ALT 18 (7-52) Units/L Alkaline Phosphatase 94 (34-104) Units/L Albumin 2.9 L (3.5-5.7) g/dL All other labs normal. Consult Discharge Plan - Plan Referrals: Sy Beaver DO [Primary Care Provider] -
--- NOTE | 2018-12-20 06:06 | Operative Note ---
Date of procedure: 12/20/18 Pre-op diagnosis: acute abdomen with perforated abdominal viscus Post-op diagnosis: same (perforated pyloric ulcer) Procedure: 1) Exploratory laparotomy with 2) Repair of perforated pyloric ulcer with Mamadou patch 3) Right Subclavian Vein Central Venoue Line Insertion Complications: none Anesthesia: GETA Surgeon: Melissa Bingham Was there an spa assistant manager present: No Estimated blood loss (cc): 10 Specimen: none Condition: stable Disposition: PACU Procedure in Detail: This 78-year-old female with perforated abdominal viscus is taken to the operating room urgently. He is placed in the supine position. Her abdominal wall is prepped and draped in the usual sterile fashion. An upper midline incision is made using a 10 scalpel blade. Subcutaneous tissues are dissected with electrocautery. Anterior rectus fascia was also divided using electrocautery. Peritoneum was elevated and divided. Upon entering the intra- abdominal cavity copious amounts of purulent and bilious fluid is encountered. This is suctioned and there as well over a liter of free fluid in the abdomen. Exploration of the stomach and duodenum revealed a perforated pyloric ulcer. The ulcer was repaired primarily using 3-0 Vicryl sutures for a [id number] stitch. Followed by a serosal closure with 2-0 silk sutures. The omentum is then patched over the primary repair and tacked into position using 3-0 Vicryl sutures. Copious irrigation is carried out in all 4 quadrants of the abdomen. A 10 flat CASEY drain is placed over the repair. NG tube position is confirmed surgically. The anterior rectus fascia is closed using #1 loop PDS through subcutaneous tissue is copiously irrigated skin is closed with laly. A LARRY dressing is applied. The drain is sewn into position using 3-0 nylon sutures. After the conclusion of the exploratory lap laparotomy R attention is turned to placement of a central line. Pt was placed in Trendelenburg position. Anterior chest wall and bilateral neck is prepped and draped in usual sterile fashion. The skin under the right SCV is localized with 1% lidocaine. A 14-gauge Cook needle is inserted into the right SCV. Dark red blood in aspirated. A guidewire is placed. The needle is removed. An 11-scalpel is used to incise the skin at the guidewire insertion site. A dilator is used to dilate the subcutaneous soft tissue. A triple lumen central line is placed. Dark red blood is aspirated and flushed from each of the three lumens. The line is secured to the ACW with suture. A biodisc is placed. A sterile dressing is placed. Pt tolerated procedure well. STAT PCXR is ordered in ICU. Patient is taken to the ICU in stable condition.
--- NOTE | 2018-12-20 06:27 | Anesthesia Evaluation Post Op ---
Date of Encounter: 12/20/18 Time of Encounter: 06:25 - Vital Signs Vital Signs: Vital Signs/O2 Sat/Glucose, Most Current Temp Pulse Resp BP Pulse Ox 12/20/18 04:12 86 20 114/67 98 12/20/18 03:53 98.7 F 86 20 97/70 98 12/20/18 03:42 87 20 77/52 97 12/20/18 03:30 81 20 77/54 97 12/20/18 02:55 82 20 81/54 97 12/20/18 02:42 84 24 86/70 95 - Lungs Lungs: Clear Ascult./Percussion - Airway Airway: Non-obstructed - Cardiovascular Regular Rate - Mental Status Mental Status: Alert & Oriented, Answers Appropriately - Pain Pain Scale: 0 - Nausea Vomiting Nausea Vomiting: Not Present - Hydration Hydration: NPO - Discharge PostOp Status: Transfer Patient to floor (To ICU)
[2018-12-20] MEDS ORDERED: *HR* HYDROmorphone (PF) 1 MG/ML SYRINGE IVP PRN (06:52)
[2018-12-20] MEDS ORDERED: 0.9 % Sodium Chloride 1,000 ML IVC SCH (06:52)
[2018-12-20] MEDS ORDERED: *HR* FentaNYL (PF) 100 MCG/2 ML VIAL IVP PRN (08:04)
--- NOTE | 2018-12-20 08:13 | Pulmonology Consult Note ---
<Lui Garsia - Last Filed: 12/20/18 11:27> Date of Encounter: 12/20/18 Time of Encounter: 08:13 Assessment and Plan (1) Bacterial peritonitis Current Visit: Yes Status: Acute 78F significant PMH of alcoholic cirrhosis, dementia, CHF, CAD presents to the ICU postoperatively after repair of perforated duodenal ulcer. Bacterial peritonitis secondary to perforated ulcer. Lactic Acid at 6:23 of 5.5 WBC within normal limits, temperature of 97.5, and pulse 82 -Pt on Fentanyl 12.5 mcg q1h prn for pain. -D/c dilaudid and oxycodone due to hypotension. -Continue empiric antibiotic therapy with Zosyn and fluconazole -Continue trending lactic acids every 6 hours -Monitor WBC with CBC stat and with morning labs. (2) Septic shock Current Visit: Yes Status: Acute Patient with tachycardia at 101, hypotension, lactic acid of 5.5, WBC of 12.9, and creatinine of 1.36 despite 5 L of fluid Patient with -Monitoring LA q6h for resolution of lactic acidosis -Continue Zosyn and fluconazole. -D/c NS after 5th liter is finished. -Titrate NE to keep pts MAP above 65 -Started pt on 25% albumin 4 bags at q6h (3) Lactic acidosis Current Visit: Yes Status: Acute Patient with a lactic acid of 3.6 in the ED with a repeat rising to 4.8 and 5.3 postoperatively. Patient currently on Zosyn and fluconazole postoperatively following duodenal perforation repair. Patient has received 4.5 L of normal saline -Continue to trend lactic acids every 6 hours to monitor for resolution of lactic acidosis. (4) Perforated abdominal viscus Current Visit: Yes Status: Acute CT scan of the abdomen which showed a perforated duodenal ulcer with small volume pneumoperitoneum with a suspected mucosal defect measuring around 1 cm in size. Pt with emergent surgical intervention overnight. -Surgical bandage in place with no surrounding erythema and a soft abd -Continue to monitor output of drain and surgical site -Pain management with fentanyl 12.5 mcg q1h prn -Protonix IV q12h -Continue Zosyn and fluconazole therapy day 1 (5) Hypoalbuminemia Current Visit: Yes Status: Acute Pt with pmh significant for alcoholic cirrhosis with most recent Albumin of 1.9 -Replacement with 25% 24 g/100 ml albumin q6h for 4 bags (6) Cirrhosis Current Visit: Yes Status: Acute Qualifiers: Hepatic cirrhosis type: unspecified hepatic cirrhosis Qualified Code(s): K74.60 - Unspecified cirrhosis of liver (7) PUJA (acute kidney injury) Current Visit: No Status: Acute B[place] Digger of 1.27 which is now up to 1.36 in most recent labs -Will continue to monitor -Could be secondary to hypoperfusion, pt has been hypotensive since admisssion started pt on NE drip titrated to a MAP of 65 -Avoid nephrotoxic drugs (8) Diabetes mellitus Current Visit: No Status: Chronic BG of 157 currently Pt NPO -Low dose SSI started -Q6H BG checks while NPO Qualifiers: Diabetes mellitus type: type 2 Diabetes mellitus pharmacology teacher insulin use: without pharmacology teacher use Diabetes mellitus complication status: without complication Qualified Code(s): E11.9 - Type 2 diabetes mellitus without complications History of Present Illness Consult date: 12/20/18 Chief complaint: Abd Pain History of present illness: Mrs. Marte is a 78-year-old female with significant past medical history of alcoholic cirrhosis, CHF, hypertension, diabetes, dementia, hyperlipidemia, and GERD presents to the emergency room with acute onset abdominal pain earlier in the day. Patient was also complaining of nausea, shortness of breath, and feeling cold at that time. Patient was discharged from the hospital 3 days ago for after treatment for a UTI and is currently still on amoxicillin. In the ED BP of 88/54 was noted, pulse 74, respirations at 24, temperature of 97.5, and O2 saturation of 97% on room air. Labs significant for a creatinine of 1.27, normal white count, stable H&H, and lactate of 3.6. Patient had a CT scan of the abdomen which showed a perforated duodenal ulcer with small volume pneumoperitoneum with a suspected mucosal defect measuring around 1 cm in size. Patient was taken to surgery last night. Patient was started on IV fluid boluses and had vasopressor support upon entering the ICU. Patient's lactic acid has risen to 5.5. Patient currently being treated with Zosyn and fluconazole postoperatively. Patient also receiving fentanyl 12.5 mcg every one hour. Past Med Surg Social Fam HX - Past Medical History Medical history: cirrhosis, dementia, diabetes, GERD, hyperlipidemia, hypertension, other Additional medical history: stomach ulcers, hiatel hernia, metal plate in head, UTI's Psychiatric history: depression - Past Surgical History Surgical History: hysterectomy Additional surgical history: family states "sx for bleeding ulcer" - Social History Smoking Status: Never smoker Smokeless Tobacco Status: No Alcohol use: unknown Drug use: none - Family History Sister Adopted: No Family Member Ethnicity: Non- Living Status: Hx Family Cardiac Disorders: Yes (Brain aneurysm) Hx Family Respiratory Disorders: No Hx Family Cancer: No Hx Family GI Disorders: No Hx Family Endocrine Disorder: No Hx Family Neuromuscular Disorders: No Hx Family Neurologic Disorders: No Hx Family HEENT Disorders: No Hx Family Autoimmune Disorders: No Brother Family Member Ethnicity: Non- Living Status: Hx Family Cardiac Disorders: Yes (HF, CAD) Mother Family Member Ethnicity: Non- Living Status: Hx Family Cardiac Disorders: Yes (HF, CAD, HTN) Father Family Member Ethnicity: Non- Living Status: Hx Family GI Disorders: Yes (Bleeding ulcers) Medications and Allergies Amitriptyline [Elavil] 40 mg PO HS 07/04/16 [History] Escitalopram [Lexapro] 40 mg PO DAILY 07/04/16 [History] Oxycodone HCl/Acetaminophen [Percocet 10-325 mg Tablet] 1 tab PO Q8H PRN 07/04/16 [History] Risedronate Sodium [Actonel] 35 mg PO QWEEK 07/04/16 [History] Simvastatin [Zocor] 20 mg PO HS 07/04/16 [History] Sucralfate [Carafate] 1 gm PO QIDAC 07/04/16 [History] Furosemide [Lasix] 20 mg PO BID #60 tablet 11/16/17 [Rx] Donepezil HCl [Aricept] 10 mg PO DAILY 01/23/18 [History] Potassium Chloride [K-Tab ER] 10 meq PO BID 07/11/18 [History] Amoxicillin [Amoxil] 500 mg PO Q8HR #15 capsule 12/16/18 [Rx] Lactobacillus Acidophilus [Acidophilus Probiotic] 1 mg PO BID #10 tablet 12/16/18 [Rx] Metoprolol [Lopressor] 25 mg PO BID 12/19/18 [History] Allergy/AdvReac Type Severity Reaction Status Date / Time haloperidol Allergy Hallucinati Verified 12/19/18 20:54 ng ROS unobtainable: due to mental status All Systems: The remainder of the systems were reviewed and are negative Physical Examination Vital Signs: Vital Signs, Last 4 Hours Temp Pulse Resp BP Pulse Ox 12/20/18 06:33 97.7 F 65 20 109/62 94 12/20/18 06:14 95.0 F L 67 17 100/86 99 General appearance: alert Eyes: nonicteric ENT: oropharynx moist Neck: supple, no lymphadenopathy Effort: normal Inspection: normal Auscultation: bilateral: clear Cardiovascular: regular rate and rhythm Gastrointestinal: normoactive bowel sounds, soft, tender, non-distended Integumentary: normal Extremities: no cyanosis, no edema, no clubbing Musculoskeletal: no deformities pupils equal and round, unable to assess due to mental status Results - Laboratory Findings CBC and BMP: 12/20/18 09:22 12/20/18 09:22 Abnormal lab findings: Abnormal lab results RDW 14.7 % (11.5-14.5) H 12/19/18 20:50 Sodium 133 mEq/L (136-145) L 12/19/18 20:50 BUN 32 mg/dL (8-23) H 12/19/18 20:50 Creatinine 1.27 mg/dL (0.60-1.20) H 12/19/18 20:50 Est GFR ( Amer) 49 (> 60) L 12/19/18 20:50 Est GFR (Non-Af Amer) 41 (> 60) L 12/19/18 20:50 Glucose 191 mg/dL (70-105) H 12/19/18 20:50 POC Glucose 132 mg/dL (70-99) H 12/20/18 06:08 Lactic Acid 5.5 mmol/L (0.5-2.2) H* 12/20/18 06:48 Serum Total Protein 6.0 g/dL (6.4-8.9) L 12/19/18 20:50 Albumin 2.9 g/dL (3.5-5.7) L 12/19/18 20:50 Albumin/Globulin Ratio 0.9 (1.1-2.2) L 12/19/18 20:50 - Microbiology Findings Microbiology Findings: Microbiology, Last 48 Hours 12/19/18 21:30 Blood Culture - Preliminary Peripheral Venipuncture Culture is incubating and being continuously monitored for growth. Final report to follow. 12/19/18 21:35 Blood Culture - Preliminary Peripheral Venipuncture Culture is incubating and being continuously monitored for growth. Final report to follow. - Clinical Findings Intake & Output: Intake & Output 12/19/18 12/20/18 12/20/18 23:59 07:59 15:59 Intake Total 500 / 500 3274 / 3274 Output Total 60 / 60 Balance 500 / 500 3214 / 3214 Weight 66.678 kg 66.9 kg Consult Discharge Plan - Plan Referrals: Sy Beaver DO [Primary Care Provider] - <Jeff Machuca - Last Filed: 12/20/18 12:12> Date of Encounter: 12/20/18 All Systems: The remainder of the systems were reviewed and are negative Physical Examination Vital Signs: Vital Signs, Last 4 Hours Temp Pulse Resp BP Pulse Ox 12/20/18 11:10 98.3 F 12/20/18 11:00 97 20 72/54 97 12/20/18 10:00 88 19 95/79 100 12/20/18 09:00 73 19 101/54 100 Results - Laboratory Findings CBC and BMP: 12/20/18 09:22 12/20/18 09:22 PT/INR, D-dimer PT 17.3 Seconds (9.4-12.1) H 12/20/18 09:22 Abnormal lab findings: Abnormal lab results WBC 12.9 K/mcL (4.3-11.1) H D 12/20/18 09:22 RBC 3.54 M/mcL (3.82-4.97) L 12/20/18 09:22 Hgb 10.5 g/dL (11.5-15.4) L D 12/20/18 09:22 Hct 32.0 % (35.3-44.9) L 12/20/18 09:22 RDW 15.0 % (11.5-14.5) H 12/20/18 09:22 Plt Count 101 K/mcL (140-400) L 12/20/18 09:22 Band Neutrophils % 39.0 % (0-4) H 12/20/18 09:22 Metamyelocytes % 2.0 % (0) H 12/20/18 09:22 Neutrophils # 11.4 K/mcL (1.6-8.9) H 12/20/18 09:22 Platelet Estimate Decreased (Normal) L 12/20/18 09:22 PT 17.3 Seconds (9.4-12.1) H 12/20/18 09:22 Sodium 133 mEq/L (136-145) L 12/19/18 20:50 Chloride 109 mEq/L (98-107) H 12/20/18 09:22 Carbon Dioxide 18 mEq/L (23-29) L 12/20/18 09:22 BUN 39 mg/dL (8-23) H 12/20/18 09:22 Creatinine 1.36 mg/dL (0.60-1.20) H 12/20/18 09:22 Est GFR ( Amer) 45 (> 60) L 12/20/18 09:22 Est GFR (Non-Af Amer) 38 (> 60) L 12/20/18 09:22 BUN/Creatinine Ratio 29 (6-26) H 12/20/18 09:22 Glucose 172 mg/dL (70-105) H 12/20/18 09:22 POC Glucose 157 mg/dL (70-99) H 12/20/18 11:07 Lactic Acid 5.5 mmol/L (0.5-2.2) H* 12/20/18 06:48 Calcium 7.9 mg/dL (8.6-10.3) L 12/20/18 09:22 Serum Total Protein 3.8 g/dL (6.4-8.9) L 12/20/18 09:22 Albumin 1.9 g/dL (3.5-5.7) L 12/20/18 09:22 Globulin 1.9 g/dL (2.4-3.5) L 12/20/18 09:22 Albumin/Globulin Ratio 1.0 (1.1-2.2) L 12/20/18 09:22 - Microbiology Findings Microbiology Findings: Microbiology, Last 48 Hours 12/19/18 21:30 Blood Culture - Preliminary Peripheral Venipuncture Culture is incubating and being continuously monitored for growth. Final report to follow. 12/19/18 21:35 Blood Culture - Preliminary Peripheral Venipuncture Culture is incubating and being continuously monitored for growth. Final report to follow. - Clinical Findings Intake & Output: Intake & Output 12/19/18 12/20/18 12/20/18 23:59 07:59 15:59 Intake Total 500 / 500 3274 / 4394 1120 / 4394 Output Total 60 / 520 460 / 520 Balance 500 / 500 3214 / 3874 660 / 3874 Weight 66.678 kg 66.9 kg - Attending Attestation I examined this patient and my medical decision-making was reviewed with the Resident Physician. I agree with the documented findings, disposition and treatment plan as described except to the extent set forth below. We independently had [id number] contact with the patient I spent 34 min of Critical Care time with this patient. It involved decision making of high complexity to assess, manipulate, and support vital organ system failure and/or to prevent further life threatening deterioration of the patient's condition. The time involved in the performance of separately reportable procedures was not counted toward critical care time. Patient seen and examined at bedside Labs, radiology, chart personally reviewed. Management was reviewed during multidisciplinary critical care rounds. PSYCHIATRIC NURSE PRACTITIONER: Patient has advanced dementia and likely some mild underlying delirium.We will focus on congregation of sleep-wake cycle. avoid sensory deprivation, and avoid PSYCHIATRIC NURSE PRACTITIONER depressant medications as able. Pulm: Acceptable oxygenation on nasal cannula however she is at high risk for decompensation given the amount of crystalloid infusion she has received and will need to monitor this closely may need to be started on positive pressure support if tolerated from her mental status Cards: Patient has distributive shock secondary to sepsis and she is on vasopressor support after adequate volume resuscitation. Lactate is still elevated but urine output remains acceptable continue to trend this very closely goal MAP >65. GI: Patient has a history of cirrhosis and hypoalbuminemia for volume expansion in the context of long chronic pressure we will schedule albumin. Synthetic liver function appears to be intact; stress ulcer prophylaxis has been given Nutrition: Nothing by mouth for now Renal: AK I likely secondary to hypoperfusion Bekah monitor urine output no acute indication for renal replacement therapy but will need to monitor this closely she is also at risk for abdominal compartment syndrome. UOP Monitored, Cont to Trend sCr and monitor Electrolytes. ID: Patient has secondary bacterial peritonitis secondary to ruptured viscus and is on broad-spectrum antibiotics for intra-abdominal coverage including antifungal and anaerobic coverage will de-escalate based on clinical response and her cultures Heme/Onc: DVT prophylaxis given Endo: Glucose Monitored Integ/MSK: Skin Care per routine ICU Nursing Protocol to prevent ulcers. Lines: All lines examined without evidence of infection : Dispo: Monitor in ICU for critical illness CODE: Full. Patient is of advanced age with advanced dementia and has septic shock she will need palliative care consultation
[2018-12-20] MEDS: Fluconazole 200 MG/100 ML 200 MG/100 ML BAG IVPB SCH (08:46)
[2018-12-20] MEDS: Piperacillin/Tazobactam 3.375 GM in 0.9 % Sodium Chloride Mini Bag 100 ML IVPB SCH ×2 (08:46→17:40)
[2018-12-20 09:34] LABS: Mean Corpuscular Hemoglobin 29.7 pg (28.0-33.3); Red Blood Count 3.54 M/mcL (3.82-4.97)
[2018-12-20 09:36] LABS: Hemoglobin 10.5 g/dL (11.5-15.4); Immature Platelets 2.2 % (1.1-6.1); Mean Corpuscular HGB Conc 32.8 g/dL (31.6-35.5); Mean Corpuscular Volume 90.4 fL (83.0-100.0); Mean Platelet Volume 9.4 fL (9.4-12.4); Platelet Count 101 K/mcL (140-400); White Blood Count 12.9 K/mcL (4.3-11.1)
[2018-12-20] MEDS ORDERED: D5% in Water 1,000 ML IVC PRN (09:40)
[2018-12-20] MEDS ORDERED: *HR* Dextrose 50 % in Water (Syg) 50 ML SYRINGE IVP PRN (09:40)
[2018-12-20] MEDS ORDERED: Dextrose Gel 15 GM/37.5 ML TUBE PO PRN ×2 (09:40)
[2018-12-20 09:44] LABS: INR 1.5; Prothrombin Time 17.3 Seconds (9.4-12.1)
[2018-12-20 09:58] LABS: Albumin 1.9 g/dL (3.5-5.7); Bilirubin,Total 0.9 mg/dL (0.3-1.0); Calcium 7.9 mg/dL (8.6-10.3); Globulin 1.9 g/dL (2.4-3.5); Potassium 4.3 mEq/L (3.5-5.1); Total Protein 3.8 g/dL (6.4-8.9); Troponin I 0.03 ng/mL (< 0.04)
[2018-12-20] MEDS: Norepinephrine 4 MG in 0.9 % Sodium Chloride 250 ML IVC SCH (10:01)
[2018-12-20 10:23] LABS: Monocytes # 0.3 K/mcL (0.0-1.3); Neutrophils # 11.4 K/mcL (1.6-8.9)
[2018-12-20 10:24] LABS: Platelet Estimate Decreased (Normal)
[2018-12-20] MEDS: *HR* FentaNYL (PF) 100 MCG/2 ML VIAL IVP PRN ×5 (11:19→23:39)
[2018-12-20] MEDS: Albumin 25% 25gram/100mL 25 GM/100 ML IV.SOLN IVPB SCH ×3 (11:20→23:39)
[2018-12-20] MEDS: Insulin LISPRO 300 UNITS/3 ML VIAL SQ SCH ×3 (11:23→23:39)
--- NOTE | 2018-12-20 14:44 | Palliative - Consult Note ---
Date of Encounter: 12/20/18 Time of Encounter: 14:00 - Assessment and Plan (1) Incisional pain Current Visit: Yes Status: Acute Assessment and plan: Has low dose Fentanyl available PRN for pain. Received x 1 withing the last few hours. Icepack also present to abd incision. MOnitor. (2) Goals of care, counseling/discussion Current Visit: No Status: Acute Assessment and plan: Patient is awake and alert but pleasantly confused. According to primary nurse, patient's son Doc is power of admitted attorneys,, and is currently a patient at [facility]. Patient is able to tell me she lives with Doc and his . States other son . Unable to provide any further history at this time. Family was present earlier, however, I am unable to find anyone in room or waiting room areas. She just had surgery overnight, and received from PACU to ICU aroune -[id number] Will continue to follow clinical course. (3) Dementia Current Visit: No Status: Chronic Qualifiers: Dementia type: unspecified type Dementia behavioral disturbance: without behavioral disturbance Qualified Code(s): F03.90 - Unspecified dementia without behavioral disturbance (4) Elevated lactic acid level Current Visit: No Status: Resolved (5) Cirrhosis Current Visit: No Status: Chronic Qualifiers: Hepatic cirrhosis type: unspecified hepatic cirrhosis Ascites presence: without ascites Qualified Code(s): K74.60 - Unspecified cirrhosis of liver (6) Perforated ulcer Current Visit: Yes Status: Acute (7) Palliative care encounter Current Visit: Yes Status: Acute Palliative-CN HPI - Data of Consult Requesting Physician: Darrell Stephen MD Primary Care Provider: Brayan Beaver DO - Consult Narrative History of present illness: Ms. Nieto is a 78 year old female who presented to ED with c/o acute onset of abd pain that began early yesterday. Patient is confused and no family at bedside, so information taken from chart review. She was warm, pale, diaphoretic and was more confused than baseline. She was recently in hospital and discharged a few days ago for UTI. Imaging on workup demonstrated a perforated duodenal ulcer, and patient was taken to OR urgently per Dr. Susan Bingham. She was successfully extubated and remains in ICU. Patient has PMH of HTN, CHF, DM, HLD, dementia, and cirrhosis. Upon my visit, she is awake and pleasantly confused. She does ask me to swab her mouth frequently. NG is in place. Ice pack to abd incision. On Oxygen via nasal cannula. No family is present in room. Vitals stable but is on Levophed at 6mg/hr for blood pressure support. CC: Darrell Stephen MD - Time Spent with Patient Time: Total time spent is greater than 50% in coordination of care (as documented) at patient's floor/unit and/or counseling patient: Time with patient: 30 minutes Past Med Surg Social Fam HX - Past Medical History Medical history: cirrhosis, dementia, diabetes, GERD, hyperlipidemia, hypertension, other Additional medical history: stomach ulcers, hiatel hernia, metal plate in head, UTI's Psychiatric history: depression - Past Surgical History Surgical History: hysterectomy Additional surgical history: family states "sx for bleeding ulcer" - Social History Smoking Status: Never smoker Smokeless Tobacco Status: No Alcohol use: unknown Drug use: none - Family History Sister Adopted: No Family Member Ethnicity: Non- Living Status: Hx Family Cardiac Disorders: Yes (Brain aneurysm) Hx Family Respiratory Disorders: No Hx Family Cancer: No Hx Family GI Disorders: No Hx Family Endocrine Disorder: No Hx Family Neuromuscular Disorders: No Hx Family Neurologic Disorders: No Hx Family HEENT Disorders: No Hx Family Autoimmune Disorders: No Brother Family Member Ethnicity: Non- Living Status: Hx Family Cardiac Disorders: Yes (HF, CAD) Mother Family Member Ethnicity: Non- Living Status: Hx Family Cardiac Disorders: Yes (HF, CAD, HTN) Father Family Member Ethnicity: Non- Living Status: Hx Family GI Disorders: Yes (Bleeding ulcers) Medications and Allergies Amitriptyline [Elavil] 40 mg PO HS 07/04/16 [History] Escitalopram [Lexapro] 20 mg PO DAILY 07/04/16 [History] Oxycodone HCl/Acetaminophen [Percocet 10-325 mg Tablet] 1 tab PO Q8H PRN 07/04/16 [History] Risedronate Sodium [Actonel] 35 mg PO QWEEK 07/04/16 [History] Simvastatin [Zocor] 20 mg PO HS 07/04/16 [History] Sucralfate [Carafate] 1 gm PO QIDAC 07/04/16 [History] Furosemide [Lasix] 20 mg PO BID #60 tablet 11/16/17 [Rx] Donepezil HCl [Aricept] 10 mg PO DAILY 01/23/18 [History] Potassium Chloride [K-Tab ER] 10 meq PO BID 07/11/18 [History] Amoxicillin [Amoxil] 500 mg PO Q8HR #15 capsule 12/16/18 [Rx] Lactobacillus Acidophilus [Acidophilus Probiotic] 1 mg PO BID #10 tablet 12/16/18 [Rx] Metoprolol [Lopressor] 25 mg PO BID 12/19/18 [History] Allergy/AdvReac Type Severity Reaction Status Date / Time haloperidol Allergy Hallucinati Verified 12/20/18 14:21 ng ROS unobtainable: due to mental status Palliative Care-Exam - Constitutional Vitals: Temp Pulse Resp BP Pulse Ox 98.3 F 95 21 120/53 99 12/20/18 11:10 12/20/18 14:00 12/20/18 14:00 12/20/18 14:00 12/20/18 14:00 General appearance: Present: average body habitus, no acute distress - Head Head Exam: Present: normal inspection, normocephalic - Eye Eye exam: Present: normal appearance, PERRL - Respiratory Respiratory exam: Present: decreased breath sounds, CTAB Additional comments: Shallow inspiratory effort - Cardiovascular Cardiovascular exam: Present: +S1, +S2 - GI/Abdominal Exam GI/Abdominal exam: Present: diminished bowel sounds, soft additional comments: Dressing intact to abd incision, CASEY with bloody drainage - Catheter Type: Urethral (Barrientos) Additional comments: Clear yellow urine noted in barrientos - Extremities Exam Extremities exam: Present: normal capillary refill, normal inspection - Neurological Exam Neurological exam: Present: alert Additional comments: Oriented to name only. Can follow occasional simple commands. - Skin Skin exam: Present: dry, pallor, warm Internal Medicine - CN: Reslt - Labs CBC & Chem 7: 12/20/18 09:22 12/20/18 09:22 Labs: Short CBC 12/19/18 12/20/18 Range/Units 20:50 09:22 WBC 7.7 D 12.9 H D (4.3-11.1) K/mcL Hgb 13.9 D 10.5 L D (11.5-15.4) g/dL Hct 42.4 32.0 L (35.3-44.9) % Plt Count 180 D 101 L (140-400) K/mcL Neutrophils # 6.1 11.4 H (1.6-8.9) K/mcL BMP 12/19/18 12/20/18 20:50 09:22 Sodium 133 L 138 Potassium 4.3 4.3 Chloride 98 109 H Carbon Dioxide 24 18 L BUN 32 H 39 H Creatinine 1.27 H 1.36 H Glucose 191 H 172 H Calcium 9.6 7.9 L Cardiac Enzymes 12/19/18 12/20/18 Range/Units 20:50 09:22 Troponin I < 0.03 0.03 (< 0.04) ng/mL Liver Function 12/19/18 12/20/18 Range/Units 20:50 09:22 Total Bilirubin 0.8 0.9 (0.3-1.0) mg/dL Direct Bilirubin 0.2 (0.0-0.2) mg/dL AST 28 31 (13-39) Units/L ALT 18 18 (7-52) Units/L Alkaline Phosphatase 94 51 (34-104) Units/L Albumin 2.9 L 1.9 L (3.5-5.7) g/dL Urine 12/19/18 Range/Units 22:12 Urine Color Yellow (Yellow) Urine Clarity Clear (Clear) Urine pH 5.5 (5.0-8.0) pH Units Ur Specific [place]ole 1.011 (1.010-1.025) Urine Protein Negative (Neg-Trace) mg/dL Urine Glucose (UA) Normal (Normal) mg/dL - ABG Interpretation ABG results: PT/INR, D-dimer PT 17.3 Seconds (9.4-12.1) H 12/20/18 09:22 - Impressions Impressions Chest X-Ray 12/19/18 21:19 IMPRESSION: No acute abnormality identified. D/ / Robbin Hair MD / Robbin Hair MD Interpreting Provider: Robbin Hair MD Abdomen/Pelvis CT 12/20/18 00:09 IMPRESSION: Perforated duodenal ulcer with small volume pneumoperitoneum. Suspected mucosal defect measures approximately 1 cm in size. Oral contrast exam could further characterize if clinically necessary. 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 Additional chronic findings are unchanged over the short interval. Critical results were called by Dr. Brayan Fang to Dr. Carranza on 12/20/2018 at 02:22. D/ / Brayan Fang / Brayan Fang Interpreting Provider: Brayan Fang Chest X-Ray 12/20/18 06:11 IMPRESSION: 1. New right subclavian central line terminates in the mid to lower superior vena cava. No associated pneumothorax. 2. New gastric tube in appropriate position as above. 3. No acute cardiopulmonary process. D/ / Waqar Najera MD / Waqar Najera MD Interpreting Provider: Waqar Najera MD Consult Discharge Plan - Plan Referrals: Sy Beaver DO [Primary Care Provider] - Palliative Quality Palliative Quality: Screen for Code Status: NA (POA not present, patient with AMS), Screen for Goals of Care: NA, Screen for Pain: Yes, If Pain Regimen Started, Initiate Bowel Regimen: NA, Screen for Nausea/Vomitting: Yes Code Status: 12/20/18 03:50 FULL [Resuscitation Status: Active] [RES] Stat Comment: Resuscitation Status: Full Code
[2018-12-20] MEDS: *HR* Heparin 5,000 UNIT/ML VIAL SQ SCH (17:41)
[2018-12-20] MEDS: Pantoprazole 40 MG VIAL IVP SCH (17:41)
[2018-12-20 19:46] LABS: Calcium 8.3 mg/dL (8.6-10.3); Potassium 4.5 mEq/L (3.5-5.1)
[2018-12-20] MEDS: Ringers Solution, Lactated 1,000 ML IVC SCH (20:57)
[2018-12-20] MEDS: Saliva Stimulant 100ml BOTTLE PO PRN (23:42)
[2018-12-21] MEDS: Piperacillin/Tazobactam 3.375 GM in 0.9 % Sodium Chloride Mini Bag 100 ML IVPB SCH (01:00)
[2018-12-21] MEDS: *HR* FentaNYL (PF) 100 MCG/2 ML VIAL IVP PRN ×6 (02:13→22:02)
[2018-12-21] MEDS: Ringers Solution, Lactated 1,000 ML IVC SCH (03:38)
[2018-12-21 04:15] LABS: Bilirubin,Total 0.7 mg/dL (0.3-1.0); Calcium 8.4 mg/dL (8.6-10.3); Globulin 1.5 g/dL (2.4-3.5); Potassium 4.1 mEq/L (3.5-5.1); Total Protein 4.5 g/dL (6.4-8.9)
[2018-12-21 04:48] LABS: Hematocrit 21.9 % (35.3-44.9); Hemoglobin 7.3 g/dL (11.5-15.4); Immature Platelets 1.8 % (1.1-6.1); Mean Corpuscular HGB Conc 33.3 g/dL (31.6-35.5); Mean Corpuscular Hemoglobin 29.8 pg (28.0-33.3); Mean Corpuscular Volume 89.4 fL (83.0-100.0); Mean Platelet Volume 9.4 fL (9.4-12.4); Red Blood Count 2.45 M/mcL (3.82-4.97); Red Cell Distribution Width 15.3 % (11.5-14.5); White Blood Count 3.8 K/mcL (4.3-11.1)
[2018-12-21 04:51] LABS: Platelet Count 48 K/mcL (140-400)
[2018-12-21] MEDS: *HR* Heparin 5,000 UNIT/ML VIAL SQ SCH (05:06)
[2018-12-21] MEDS: Pantoprazole 40 MG VIAL IVP SCH ×2 (05:12→17:05)
[2018-12-21] MEDS: Albumin 25% 25gram/100mL 25 GM/100 ML IV.SOLN IVPB SCH (05:12)
[2018-12-21 05:17] LABS: Lymphocytes # 0.5 K/mcL (0.6-4.6); Monocytes # 0.2 K/mcL (0.0-1.3)
[2018-12-21 05:19] LABS: Platelet Estimate Marked Decrease (Normal)
[2018-12-21] MEDS: Insulin LISPRO 300 UNITS/3 ML VIAL SQ SCH ×4 (05:26→23:46)
[2018-12-21] MEDS: Saliva Stimulant 100ml BOTTLE PO PRN ×4 (05:26→19:48)
--- NOTE | 2018-12-21 06:49 | Pulmonology Progress Note ---
<YudikristianJeff W - Last Filed: 12/21/18 08:53> Date of Encounter: 12/21/18 Objective PUL Vital signs: Last Vital Signs Temp 98.4 F 12/21/18 07:43 Pulse 110 12/21/18 08:32 Resp 21 12/21/18 08:32 BP 128/48 12/21/18 08:32 Pulse Ox 98 12/21/18 08:32 Results - Laboratory Findings CBC and BMP: 12/21/18 04:30 12/21/18 03:43 PT/INR, D-dimer PT 17.3 Seconds (9.4-12.1) H 12/20/18 09:22 Abnormal lab findings: Abnormal lab results WBC 3.8 K/mcL (4.3-11.1) L D 12/21/18 04:30 RBC 2.45 M/mcL (3.82-4.97) L 12/21/18 04:30 Hgb 7.3 g/dL (11.5-15.4) L D 12/21/18 04:30 Hct 21.9 % (35.3-44.9) L 12/21/18 04:30 RDW 15.3 % (11.5-14.5) H 12/21/18 04:30 Plt Count 48 K/mcL (140-400) L D 12/21/18 04:30 Band Neutrophils % 18.0 % (0-4) H 12/21/18 04:30 Metamyelocytes % 2.0 % (0) H 12/21/18 04:30 Neutrophils # 11.4 K/mcL (1.6-8.9) H 12/20/18 09:22 Lymphocytes # 0.5 K/mcL (0.6-4.6) L 12/21/18 04:30 Platelet Estimate Marked Decrease (Normal) L 12/21/18 04:30 PT 17.3 Seconds (9.4-12.1) H 12/20/18 09:22 Sodium 133 mEq/L (136-145) L 12/19/18 20:50 Chloride 112 mEq/L (98-107) H 12/21/18 03:43 Carbon Dioxide 19 mEq/L (23-29) L 12/21/18 03:43 BUN 48 mg/dL (8-23) H 12/21/18 03:43 Creatinine 1.35 mg/dL (0.60-1.20) H 12/21/18 03:43 Est GFR ( Amer) 46 (> 60) L 12/21/18 03:43 Est GFR (Non-Af Amer) 38 (> 60) L 12/21/18 03:43 BUN/Creatinine Ratio 36 (6-26) H 12/21/18 03:43 Glucose 141 mg/dL (70-105) H 12/21/18 03:43 POC Glucose 135 mg/dL (70-99) H 12/21/18 05:25 Calculated Osmolality 307 (280-300) H 12/21/18 03:43 Lactic Acid 3.8 mmol/L (0.5-2.2) H 12/20/18 23:52 Calcium 8.4 mg/dL (8.6-10.3) L 12/21/18 03:43 Magnesium 1.3 mg/dL (1.6-2.6) L 12/21/18 03:43 Alkaline Phosphatase 33 Units/L (34-104) L 12/21/18 03:43 B-Natriuretic Peptide 195 pg/mL (Less than 100) H 12/20/18 12:27 Serum Total Protein 4.5 g/dL (6.4-8.9) L 12/21/18 03:43 Albumin 3.0 g/dL (3.5-5.7) L 12/21/18 03:43 Globulin 1.5 g/dL (2.4-3.5) L 12/21/18 03:43 Albumin/Globulin Ratio 1.0 (1.1-2.2) L 12/20/18 09:22 - Microbiology Findings Microbiology Findings: Microbiology, Last 48 Hours 12/19/18 21:30 Blood Culture - Preliminary Peripheral Venipuncture Culture is incubating and being continuously monitored for growth. Final report to follow. 12/19/18 21:35 Blood Culture - Preliminary Peripheral Venipuncture Culture is incubating and being continuously monitored for growth. Final report to follow. - Clinical Findings Intake & Output: Intake & Output 12/20/18 12/21/18 12/21/18 23:59 07:59 15:59 Intake Total 1425 / 6019 2108 / 2108 Output Total 310 / 1220 1400 / 1440 40 / 1440 Balance 1115 / 4799 708 / 668 -40 / 668 Weight 68.7 kg Consult Discharge Plan - Plan Referrals: Sy Beaver DO [Primary Care Provider] - - Attending Attestation I examined this patient and my medical decision-making was reviewed with the Resident Physician. I agree with the documented findings, disposition and treatment plan as described except to the extent set forth below. We independently had [id number] contact with the patient Patient seen and examined at bedside Labs, radiology, chart personally reviewed. Management was reviewed during multidisciplinary critical care rounds. 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 avoid sensory deprivation, and avoid DISTRICT SALES MANAGER depressant medicatio ns as able. Pulm: Acceptable oxygenation Cards: Septic shock has resolved she is having ectopy on telemetry likely related to electrolyte imbalances GI: Status post surgical repair of perforated viscus complicated by peritonitis general surgery managing Nutrition: Nothing by mouth for now Renal: Acute kidney injury stable urine output- UOP Monitored, Cont to Trend sCr and monitor Electrolytes. ID: Intra-abdominal infection/peritonitis treating broad-spectrum antibiotics Heme/Onc: Acute pancytopenia likely multifactorial including dilutional effect possibly antimicrobial and sepsis related peripheral smear pending check INR LDH and fibrinogen levels may need hematology consultation Endo: Glucose Monitored Integ/MSK: Skin Care per routine ICU Nursing Protocol to prevent ulcers. Lines: All lines examined without evidence of infection : Dispo: Monitor in ICU if clinical course continues to stabilize over the course the day can potentially be transferred to stepdown unit discussion of the general surgeon CODE: Full <Lui Garsia - Last Filed: 12/21/18 13:17> Date of Encounter: 12/21/18 Time of Encounter: 06:45 Assessment and Plan (1) Bacterial peritonitis Current Visit: Yes Status: Acute 78F significant PMH of alcoholic cirrhosis, dementia, CHF, CAD presents to the ICU postoperatively after repair of perforated duodenal ulcer. Bacterial peritonitis secondary to perforated ulcer. Lactic Acid at 6:23 of 5.5 WBC within normal limits, temperature of 97.5, and pulse 82 -Lactic Acid down to 1.9 -Continue empiric antibiotic therapy with Zosyn and fluconazole day 2 -Continue trending lactic acids every 6 hours -Monitor WBC with CBC stat and with morning labs. (2) Septic shock Current Visit: Yes Status: Acute Patient with tachycardia at 101, hypotension, lactic acid of 5.5, WBC of 12.9, and creatinine of 1.36 despite 5 L of fluid -Leukocytosis resolved, temperature of 99.1, and BP improved off of NE -Pt still tachycardic at 108 -Lactic acidosis resolved with most recent lactate of 1.9 -Continue Zosyn and fluconazole day 2 (3) Pancytopenia Current Visit: No Status: Acute Patient's CBC from 12/21/18 with H&H down from 10.5 & 32 to 7.3 & 21.9 over night with platelets dropping from 101 to 48. Could be do to a constellation of factors including dilutional as patient has received over 5 L of fluid since admission, severe sepsis induced myelosuppression, and drug side effects CBC continues to drop with H&H of 6.8 & 21.2 -SubQ Heparin stoppped -Recheck CBC in 6 hours -Peripheral Blood Smear, Fibrinogen, INR/PT, LDH, and ionized calcium ordered, will follow results -Zosyn stopped and pt started on Flagyl and Cefepime for abx coverage -Will transfuse 2 units of PRBC and recheck CBC every 6 hours to monitor improvement (4) Atrial fibrillation with RVR Current Visit: Yes Status: Acute Pt noted to have irregular rhythm that was tachy in nature and appears to be new onset EKG with Atrial fibrillation with RVR at a rate of 149and a LBBB Previous EKGs NSR with LBBB -Pt started on a cardizem drip titrated for rate control will monitor for resolution (5) Perforated abdominal viscus Current Visit: Yes Status: Acute CT scan of the abdomen which showed a perforated duodenal ulcer with small volume pneumoperitoneum with a suspected mucosal defect measuring around 1 cm in size. Pt with emergent surgical intervention overnight. -Surgical bandage in place with no surrounding erythema and a soft abd -Continue to monitor output of drain and surgical site -Pain management with fentanyl 12.5 mcg q1h prn -Protonix IV q12h -fluconazole therapy day 2 -Zosyn switched to cefepime and flagyl (6) Lactic acidosis Current Visit: Yes Status: Resolved Patient with a lactic acid of 3.6 in the ED with a repeat rising to 4.8 and 5.3 postoperatively. Patient currently on flagyl, cefepime, and fluconazole postoperatively following duodenal perforation repair. -Lactic Acidosis resolved. 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 1.35 slightly improvede -Will continue to monitor -Could be secondary to hypoperfusion, pt has been hypotensive since admisssion started pt on NE drip titrated to a MAP of 65 -Avoid nephrotoxic drugs (9) Diabetes mellitus Current Visit: No Status: Chronic BG of 157 currently Pt NPO -Low dose SSI started -Q6H BG checks while NPO Qualifiers: Diabetes mellitus type: type 2 Diabetes mellitus fdc insulin use: without long term care administrator use Diabetes mellitus complication status: without complication Qualified Code(s): E11.9 - Type 2 diabetes mellitus without complications (10) Hypomagnesemia Current Visit: No Status: Acute Magnesium level of 1.3 -Replacing with 4 gm Mg Sulfate -Continue to monitor (11) Cirrhosis Current Visit: Yes Status: Acute Qualifiers: Hepatic cirrhosis type: alcoholic cirrhosis Ascites presence: without ascites Qualified Code(s): K70.30 - Alcoholic cirrhosis of liver without ascites (12) DVT prophylaxis Current Visit: Yes Status: Acute SCDs. Heparin stopped due to pancytopenia Subjective Interval history: Patient is lying comfortably in bed upon entering the room. Patient's is requesting to drink water at this time. Patient is happily demented, knowing who she is and where she is, but unable to tell what year it is right now. Patient does have some abdominal pain but is hard to get a history from. Objective PUL Vital signs: Last Vital Signs Temp 99.1 F 12/21/18 04:11 Pulse 108 12/21/18 06:00 Resp 14 12/21/18 06:00 BP 136/58 12/21/18 06:00 Pulse Ox 98 12/21/18 06:00 General appearance: no acute distress Eyes: nonicteric ENT: oropharynx moist Neck: supple, no lymphadenopathy Effort: normal Auscultation: bilateral: clear Cardiovascular: irregular rhythm (Tachycardia at ~140) Gastrointestinal: normoactive bowel sounds, soft, tender (surgical incision on the left side of the abd covered by a wound dressing without warmth or erythema in the surrounding area. Drain placed on the Right side of the abd with minimal output) Integumentary: normal Extremities: no cyanosis, no edema Musculoskeletal: no deformities non-focal exam (A&Ox2), pupils equal and round mood appropriate, affect normal Results - Laboratory Findings CBC and BMP: 12/21/18 10:50 12/21/18 03:43 PT/INR, D-dimer PT 17.3 Seconds (9.4-12.1) H 12/20/18 09:22 Abnormal lab findings: Abnormal lab results WBC 3.8 K/mcL (4.3-11.1) L D 12/21/18 04:30 RBC 2.45 M/mcL (3.82-4.97) L 12/21/18 04:30 Hgb 7.3 g/dL (11.5-15.4) L D 12/21/18 04:30 Hct 21.9 % (35.3-44.9) L 12/21/18 04:30 RDW 15.3 % (11.5-14.5) H 12/21/18 04:30 Plt Count 48 K/mcL (140-400) L D 12/21/18 04:30 Band Neutrophils % 18.0 % (0-4) H 12/21/18 04:30 Metamyelocytes % 2.0 % (0) H 12/21/18 04:30 Neutrophils # 11.4 K/mcL (1.6-8.9) H 12/20/18 09:22 Lymphocytes # 0.5 K/mcL (0.6-4.6) L 12/21/18 04:30 Platelet Estimate Marked Decrease (Normal) L 12/21/18 04:30 PT 17.3 Seconds (9.4-12.1) H 12/20/18 09:22 Sodium 133 mEq/L (136-145) L 12/19/18 20:50 Chloride 112 mEq/L (98-107) H 12/21/18 03:43 Carbon Dioxide 19 mEq/L (23-29) L 12/21/18 03:43 BUN 48 mg/dL (8-23) H 12/21/18 03:43 Creatinine 1.35 mg/dL (0.60-1.20) H 12/21/18 03:43 Est GFR ( Amer) 46 (> 60) L 12/21/18 03:43 Est GFR (Non-Af Amer) 38 (> 60) L 12/21/18 03:43 BUN/Creatinine Ratio 36 (6-26) H 12/21/18 03:43 Glucose 141 mg/dL (70-105) H 12/21/18 03:43 POC Glucose 135 mg/dL (70-99) H 12/21/18 05:25 Calculated Osmolality 307 (280-300) H 12/21/18 03:43 Lactic Acid 3.8 mmol/L (0.5-2.2) H 12/20/18 23:52 Calcium 8.4 mg/dL (8.6-10.3) L 12/21/18 03:43 Magnesium 1.3 mg/dL (1.6-2.6) L 12/21/18 03:43 Alkaline Phosphatase 33 Units/L (34-104) L 12/21/18 03:43 B-Natriuretic Peptide 195 pg/mL (Less than 100) H 12/20/18 12:27 Serum Total Protein 4.5 g/dL (6.4-8.9) L 12/21/18 03:43 Albumin 3.0 g/dL (3.5-5.7) L 12/21/18 03:43 Globulin 1.5 g/dL (2.4-3.5) L 12/21/18 03:43 Albumin/Globulin Ratio 1.0 (1.1-2.2) L 12/20/18 09:22 - Microbiology Findings Microbiology Findings: Microbiology, Last 48 Hours 12/19/18 21:30 Blood Culture - Preliminary Peripheral Venipuncture Culture is incubating and being continuously monitored for growth. Final report to follow. 12/19/18 21:35 Blood Culture - Preliminary Peripheral Venipuncture Culture is incubating and being continuously monitored for growth. Final report to follow. - Clinical Findings Intake & Output: Intake & Output 12/20/18 12/20/18 12/21/18 15:59 23:59 07:59 Intake Total 1320 / 6019 1425 / 6019 1304 / 1304 Output Total 850 / 1220 310 / 1220 1140 / 1140 Balance 470 / 4799 1115 / 4799 164 / 164 Weight 68.7 kg
[2018-12-21] MEDS: Norepinephrine 4 MG in 0.9 % Sodium Chloride 250 ML IVC SCH (07:51)
--- NOTE | 2018-12-21 08:11 | AcuteCareSurgery Progress Note ---
Date of Encounter: 12/21/18 Time of Encounter: 07:40 - Assessment and Plan (1) Perforated ulcer Current Visit: Yes Status: Acute The patient is postoperative day 1 from repair of perforated duodenal ulcer. No bowel sounds she had. Maintain the nasogastric tube and Jefferson-Akers drain. Continue supportive care. The patient is currently undergoing workup for pancytopenia Twin Walters MD FACS Subjective Narrative: The patient is seen and evaluated on morning rounds with the acute care surgery team. She is pleasantly demented. She is not oriented to place or time. Nasogastric tube is in place draining clear bile tinged fluid. Jefferson-Akers drain is in place at the site of duodenal perforation area this is draining clear serosanguineous fluid with no evidence of hemorrhage. The patient is postoperative day 1 from perforated duodenal ulcer repair with patch. She did have elevated lactate which is now decreasing. She did require pressors yesterday. She is not on pressors at this point. She is complaining of incisional pain. On physical examination there are no bowel sounds. Continue nasogastric tube drainage. The patient is noted to have pancytopenia. No evidence of active bleeding. Objective Vital Signs - Last 8 Hours Temp Pulse Resp BP Pulse Ox 12/21/18 07:43 98.4 F 12/21/18 06:00 108 14 136/58 98 12/21/18 05:00 115 20 120/53 99 12/21/18 04:11 99.1 F 12/21/18 04:00 119 16 129/54 99 12/21/18 03:00 119 14 129/58 99 12/21/18 02:00 120 20 120/49 99 12/21/18 01:00 118 16 119/53 99 12/21/18 00:39 98.8 F Intake and Output 12/20/18 12/21/18 12/21/18 23:59 07:59 15:59 Intake Total 1425 / 6019 2107 / 2108 Output Total 310 / 1220 1400 / 1400 Balance 1115 / 4799 708 / 708 Intake: IV Fluids 1425 / 6019 2107 / 2107 0.9 % Sodium Chloride 1,000 ML 1000 / 1000 @ 125 mls/hr IVC .Q8H [facility] Rx#: [id number] Levophed 4 MG In 0.9 % Sodium 225 / 245 0 / 0 Chloride 250 ML @ 5 MCG/MIN 19. 05 mls/hr IVC CONT [facility] Rx#: [id number] Lactated Ringers 1,000 ML @ 150 1600 / 1600 mls/hr IVC .Q6H40M [facility] Rx#: [id number] Flexbumin 25 gm In 100 ml @ 60 100 / 200 200 / 200 mls/hr IVPB Q6HR [facility] Rx#: [id number] Magnesium Sulfate 2 GM In 0.9 % 208 / 208 Sodium Chloride 100 ML @ 104 mls/hr IVPB ONCE ONE Rx#: [id number] Zosyn 3.375 GM In 0.9 % Sodium 100 / 200 100 / 100 Chloride (Mini-Bag +) 100 ML @ 25 mls/hr IVPB Q8H [facility] Rx#: [id number] Output: Catheter 200 / 700 700 / 700 Gastric Drainage 150 / 150 Wound Drainage 110 / 360 550 / 550 ABDOMEN 110 / 360 550 / 550 Other: Weight 68.7 kg Blood Glucose* 155 149 Patient Weight 12/21/18 23:59 Weight 68.7 kg - General physical appearance moderate distress, moderate pain, chronically ill - Respiratory normal expansion, normal respiratory effort, clear to auscultation - Cardiovascular Cardiovascular exam: Present: RRR, no murmurs/rubs/gallops - Incision Incision: Present: clean and dry (No bowel sounds. Jefferson-Akers drain is ser osanguineous. NG is bile tinged. No evidence of bleeding) - Neurologic CN 2-12 grossly intact, confused, disoriented, memory loss - Labs 12/21/18 04:30 12/21/18 03:43 Diabetes panel 12/20/18 12/20/18 12/21/18 Range/Units 09:22 18:00 03:43 Sodium 138 140 141 (136-145) mEq/L Potassium 4.3 4.5 4.1 (3.5-5.1) mEq/L Chloride 109 H 110 H 112 H (98-107) mEq/L Carbon Dioxide 18 L 18 L 19 L (23-29) mEq/L BUN 39 H 46 H 48 H (8-23) mg/dL Creatinine 1.36 H 1.38 H 1.35 H (0.60-1.20) mg/dL Glucose 172 H 193 H 141 H (70-105) mg/dL Calcium 7.9 L 8.3 L 8.4 L (8.6-10.3) mg/dL AST 31 29 (13-39) Units/L ALT 18 16 (7-52) Units/L Alkaline Phosphatase 51 33 L (34-104) Units/L Albumin 1.9 L 3.0 L (3.5-5.7) g/dL Calcium panel 12/20/18 12/20/18 12/21/18 Range/Units 09:22 18:00 03:43 Calcium 7.9 L 8.3 L 8.4 L (8.6-10.3) mg/dL Albumin 1.9 L 3.0 L (3.5-5.7) g/dL Pituitary panel 12/20/18 12/20/18 12/21/18 Range/Units 09:22 18:00 03:43 Sodium 138 140 141 (136-145) mEq/L Potassium 4.3 4.5 4.1 (3.5-5.1) mEq/L Chloride 109 H 110 H 112 H (98-107) mEq/L Carbon Dioxide 18 L 18 L 19 L (23-29) mEq/L BUN 39 H 46 H 48 H (8-23) mg/dL Creatinine 1.36 H 1.38 H 1.35 H (0.60-1.20) mg/dL Glucose 172 H 193 H 141 H (70-105) mg/dL Calcium 7.9 L 8.3 L 8.4 L (8.6-10.3) mg/dL Adrenal panel 12/20/18 12/20/18 12/21/18 Range/Units 09:22 18:00 03:43 Sodium 138 140 141 (136-145) mEq/L Potassium 4.3 4.5 4.1 (3.5-5.1) mEq/L Chloride 109 H 110 H 112 H (98-107) mEq/L Carbon Dioxide 18 L 18 L 19 L (23-29) mEq/L BUN 39 H 46 H 48 H (8-23) mg/dL Creatinine 1.36 H 1.38 H 1.35 H (0.60-1.20) mg/dL Glucose 172 H 193 H 141 H (70-105) mg/dL Calcium 7.9 L 8.3 L 8.4 L (8.6-10.3) mg/dL Total Bilirubin 0.9 0.7 (0.3-1.0) mg/dL AST 31 29 (13-39) Units/L ALT 18 16 (7-52) Units/L Alkaline Phosphatase 51 33 L (34-104) Units/L Albumin 1.9 L 3.0 L (3.5-5.7) g/dL Consult Discharge Plan - Plan Referrals: Sy Beaver DO [Primary Care Provider] -
[2018-12-21 08:39] LABS: Hematocrit 21.2 % (35.3-44.9)
[2018-12-21 08:41] LABS: Hemoglobin 6.8 g/dL (11.5-15.4); Immature Platelets 2.1 % (1.1-6.1); Mean Corpuscular HGB Conc 32.1 g/dL (31.6-35.5); Mean Corpuscular Hemoglobin 29.4 pg (28.0-33.3); Mean Corpuscular Volume 91.8 fL (83.0-100.0); Mean Platelet Volume 9.2 fL (9.4-12.4); Red Blood Count 2.31 M/mcL (3.82-4.97); Red Cell Distribution Width 15.4 % (11.5-14.5); White Blood Count 2.8 K/mcL (4.3-11.1)
[2018-12-21 09:09] LABS: Monocytes # 0.3 K/mcL (0.0-1.3)
[2018-12-21 09:21] LABS: VBG Ionized Calcium 1.28 mmol/L (1.15-1.35)
[2018-12-21] MEDS: MetroNIDAZOLE 500 MG/100 ML 500 MG/100 ML BAG IVPB SCH ×2 (09:34→17:05)
[2018-12-21] MEDS: Fluconazole 200 MG/100 ML 200 MG/100 ML BAG IVPB SCH (09:34)
[2018-12-21] MEDS: Cefepime HCl 1,000 MG in Water for inj. (sterile) 10 ML IVP SCH ×2 (09:35→19:47)
[2018-12-21 09:41] LABS: INR 1.7; Prothrombin Time 18.9 Seconds (9.4-12.1)
[2018-12-21 09:54] LABS: Magnesium 2.5 mg/dL (1.6-2.6)
[2018-12-21 10:20] LABS: Platelet Count 44 K/mcL (140-400)
[2018-12-21 10:28] LABS: Lymphocytes # 0.5 K/mcL (0.6-4.6); Platelet Estimate Marked Decrease (Normal)
[2018-12-21 10:29] LABS: Burr Cells 1+ (Not Present)
[2018-12-21 11:00] LABS: Hematocrit 21.1 % (35.3-44.9)
[2018-12-21 11:02] LABS: Immature Platelets 1.9 % (1.1-6.1); Mean Corpuscular HGB Conc 33.2 g/dL (31.6-35.5); Mean Corpuscular Hemoglobin 29.7 pg (28.0-33.3); Mean Corpuscular Volume 89.4 fL (83.0-100.0); Mean Platelet Volume 9.1 fL (9.4-12.4); Red Blood Count 2.36 M/mcL (3.82-4.97); Red Cell Distribution Width 15.4 % (11.5-14.5); White Blood Count 3.1 K/mcL (4.3-11.1)
[2018-12-21] MEDS ORDERED: Furosemide 20 MG/2 ML VIAL IVP ONE ×2 (11:13→16:00)
[2018-12-21] MEDS ORDERED: 0.9 % Sodium Chloride 250 ML ONE (11:48)
--- NOTE | 2018-12-21 15:18 | Palliative Progress Note ---
Date of Encounter: 12/21/18 Time of Encounter: 15:15 - Assessment and plan (1) Goals of care, counseling/discussion Current Visit: No Status: Acute Assessment and plan: ongoing - Pt currently does not have capacity for complex medical decision-making. - Pt's son Doc Simon is LNOK. Son is currently admitted in [facility]. - No other family present at bedside during visit. - Palliative will continue to follow in the coming days to assist in establishing prognostic awareness and determining pt's goals based on clinical condition and treatment options. (2) Palliative care encounter Current Visit: Yes Status: Acute (3) Xerostomia Current Visit: Yes Status: Acute Assessment and plan: r/t NPO status. Continue with mouth swabs PRN. - Time Spent With Patient Total time spent is greater than 50% in coordination of care (as documented) at patient's floor/unit and/or counseling patient: less than 15 minutes - Subjective Interval history: Pt lying in bed, NAD, appears comfortable on exam. No family present at bedside today. Pt is oriented to person and place. Difficulty answering some questions correctly. Pt denies pain at the time of the visit. Pt frequently asking for sips of water on exam, she remains NPO with NG tube present. Pt denies any additional symptoms or needs at this time. - Constitutional Vitals: Abnormal lab results WBC 3.1 K/mcL (4.3-11.1) L 12/21/18 10:50 RBC 2.36 M/mcL (3.82-4.97) L 12/21/18 10:50 Hgb 7.0 g/dL (11.5-15.4) L 12/21/18 10:50 Hct 21.1 % (35.3-44.9) L 12/21/18 10:50 RDW 15.4 % (11.5-14.5) H 12/21/18 10:50 Plt Count 43 K/mcL (140-400) L 12/21/18 10:50 MPV 9.1 fL (9.4-12.4) L 12/21/18 10:50 Band Neutrophils % 10.0 % (0-4) H 12/21/18 08:19 Metamyelocytes % 2.0 % (0) H 12/21/18 04:30 Neutrophils # 11.4 K/mcL (1.6-8.9) H 12/20/18 09:22 Lymphocytes # 0.5 K/mcL (0.6-4.6) L 12/21/18 08:19 Platelet Estimate Marked Decrease (Normal) L 12/21/18 08:19 [place] Cells 1+ (Not Present) A 12/21/18 08:19 PT 18.9 Seconds (9.4-12.1) H 12/21/18 08:43 Sodium 133 mEq/L (136-145) L 12/19/18 20:50 Chloride 112 mEq/L (98-107) H 12/21/18 03:43 Carbon Dioxide 19 mEq/L (23-29) L 12/21/18 03:43 BUN 48 mg/dL (8-23) H 12/21/18 03:43 Creatinine 1.35 mg/dL (0.60-1.20) H 12/21/18 03:43 Est GFR ( Amer) 46 (> 60) L 12/21/18 03:43 Est GFR (Non-Af Amer) 38 (> 60) L 12/21/18 03:43 BUN/Creatinine Ratio 36 (6-26) H 12/21/18 03:43 Glucose 141 mg/dL (70-105) H 12/21/18 03:43 POC Glucose 131 mg/dL (70-99) H 12/21/18 11:05 Calculated Osmolality 307 (280-300) H 12/21/18 03:43 Lactic Acid 3.8 mmol/L (0.5-2.2) H 12/20/18 23:52 Calcium 8.4 mg/dL (8.6-10.3) L 12/21/18 03:43 Magnesium 1.3 mg/dL (1.6-2.6) L 12/21/18 03:43 Alkaline Phosphatase 33 Units/L (34-104) L 12/21/18 03:43 Lactate Dehydrogenase 75 Units/L (140-271) L 12/21/18 08:43 B-Natriuretic Peptide 195 pg/mL (Less than 100) H 12/20/18 12:27 Serum Total Protein 4.5 g/dL (6.4-8.9) L 12/21/18 03:43 Albumin 3.0 g/dL (3.5-5.7) L 12/21/18 03:43 Globulin 1.5 g/dL (2.4-3.5) L 12/21/18 03:43 Albumin/Globulin Ratio 1.0 (1.1-2.2) L 12/20/18 09:22 Crossmatch See Detail 12/19/18 20:50 General appearance: Present: no acute distress - Eye Eye exam: Present: normal appearance, PERRL - ENT ENT exam: Present: mucous membranes dry - Respiratory Additional comments: No respiratory distress noted, oxygen via NC - Cardiovascular Cardiovascular exam: Present: irregular rhythm - GI/Abdominal GI/Abdominal exam: Present: soft, tenderness Additional comments: Well approximated mid-line abdominal incision noted, surgical dressing present. - Expanded Upper Extremity Exam General: Present: normal inspection - Neurological Exam Neurological exam: Present: alert Additional comments: Oriented to person and place. Answers most questions appropriately. - Psychiatric Psychiatric exam: Present: normal affect - Skin Skin exam: Present: dry, warm Palliative Quality Palliative Quality: Screen for Code Status: NA (POA not present, pt currently does not have capacity to make complex medical decisions.), Screen for Goals of Care: NA, Screen for Pain: Yes, If Pain Regimen Started, Initiate Bowel Regimen: NA, Screen for Nausea/Vomitting: Yes Code Status: 12/20/18 03:50 FULL [Resuscitation Status: Active] [RES] Stat Comment: Resuscitation Status: Full Code - Labs CBC & Chem 7: 12/21/18 10:50 12/21/18 03:43 Labs: Laboratory Results - last 24 hr 12/19/18 12/20/18 12/20/18 20:50 17:56 18:00 WBC RBC Hgb Hct MCV MCH MCHC RDW Plt Count MPV Seg Neutrophils % Band Neutrophils % Lymphocytes % Monocytes % Metamyelocytes % Neutrophils # Lymphocytes # Monocytes # Platelet Estimate Immature Plt Fraction Baldomero Cells Smear Path Review PT INR Fibrinogen Sodium 140 Potassium 4.5 Chloride 110 H Carbon Dioxide 18 L BUN 46 H Creatinine 1.38 H Est GFR ( Amer) 45 L Est GFR (Non-Af Amer) 37 L BUN/Creatinine Ratio 33 H Glucose 193 H POC Glucose 155 H Calculated Osmolality 307 H Lactic Acid Calcium 8.3 L Venous Ioniz Calcium Magnesium Total Bilirubin AST ALT Alkaline Phosphatase Lactate Dehydrogenase Serum Total Protein Albumin Globulin Albumin/Globulin Ratio Specimen Rejected Blood Type O POSITIVE Antibody Screen NEGATIVE Crossmatch See Detail 12/20/18 12/20/18 12/20/18 18:11 23:38 23:52 WBC RBC Hgb Hct MCV MCH MCHC RDW Plt Count MPV Seg Neutrophils % Band Neutrophils % Lymphocytes % Monocytes % Metamyelocytes % Neutrophils # Lymphocytes # Monocytes # Platelet Estimate Immature Plt Fraction Baldomero Cells Smear Path Review PT INR Fibrinogen Sodium Potassium Chloride Carbon Dioxide BUN Creatinine Est GFR ( Amer) Est GFR (Non-Af Amer) BUN/Creatinine Ratio Glucose POC Glucose 149 H Calculated Osmolality Lactic Acid 4.7 H* 3.8 H Calcium Venous Ioniz Calcium Magnesium Total Bilirubin AST ALT Alkaline Phosphatase Lactate Dehydrogenase Serum Total Protein Albumin Globulin Albumin/Globulin Ratio Specimen Rejected Blood Type Antibody Screen Crossmatch 12/21/18 12/21/18 12/21/18 03:43 03:43 03:43 WBC RBC Hgb Hct MCV MCH MCHC RDW Plt Count MPV Seg Neutrophils % Band Neutrophils % Lymphocytes % Monocytes % Metamyelocytes % Neutrophils # Lymphocytes # Monocytes # Platelet Estimate Immature Plt Fraction Baldomero Cells Smear Path Review PT INR Fibrinogen Sodium 141 Potassium 4.1 Chloride 112 H Carbon Dioxide 19 L BUN 48 H Creatinine 1.35 H Est GFR ( Amer) 46 L Est GFR (Non-Af Amer) 38 L BUN/Creatinine Ratio 36 H Glucose 141 H POC Glucose Calculated Osmolality 307 H Lactic Acid 1.9 Calcium 8.4 L Venous Ioniz Calcium Magnesium 1.3 L Total Bilirubin 0.7 AST 29 ALT 16 Alkaline Phosphatase 33 L Lactate Dehydrogenase Serum Total Protein 4.5 L Albumin 3.0 L Globulin 1.5 L Albumin/Globulin Ratio 2.0 Specimen Rejected Blood Type Antibody Screen Crossmatch 12/21/18 12/21/18 12/21/18 03:43 04:30 05:25 WBC 3.8 L D RBC 2.45 L Hgb 7.3 L D Hct 21.9 L MCV 89.4 MCH 29.8 MCHC 33.3 RDW 15.3 H Plt Count 48 L D MPV 9.4 Seg Neutrophils % 60.0 Band Neutrophils % 18.0 H Lymphocytes % 14.0 Monocytes % 6.0 Metamyelocytes % 2.0 H Neutrophils # 3.0 Lymphocytes # 0.5 L Monocytes # 0.2 Platelet Estimate Marked Decrease L Immature Plt Fraction 1.8 [place] Cells Smear Path Review PT INR Fibrinogen Sodium Potassium Chloride Carbon Dioxide BUN Creatinine Est GFR ( Amer) Est GFR (Non-Af Amer) BUN/Creatinine Ratio Glucose POC Glucose 135 H Calculated Osmolality Lactic Acid Calcium Venous Ioniz Calcium Magnesium Total Bilirubin AST ALT Alkaline Phosphatase Lactate Dehydrogenase Serum Total Protein Albumin Globulin Albumin/Globulin Ratio Specimen Rejected Miscellaneous Blood Type Antibody Screen Crossmatch 12/21/18 12/21/18 12/21/18 08:19 08:43 08:43 WBC 2.8 L RBC 2.31 L Hgb 6.8 L Hct 21.2 L MCV 91.8 MCH 29.4 MCHC 32.1 RDW 15.4 H Plt Count 44 L MPV 9.2 L Seg Neutrophils % 61.0 Band Neutrophils % 10.0 H Lymphocytes % 17.0 Monocytes % 12.0 Metamyelocytes % Neutrophils # 2.0 Lymphocytes # 0.5 L Monocytes # 0.3 Platelet Estimate Marked Decrease L Immature Plt Fraction 2.1 [place] Cells 1+ A Smear Path Review See Below PT 18.9 H INR 1.7 Fibrinogen 203 Sodium Potassium Chloride Carbon Dioxide BUN Creatinine Est GFR ( Amer) Est GFR (Non-Af Amer) BUN/Creatinine Ratio Glucose POC Glucose Calculated Osmolality Lactic Acid Calcium Venous Ioniz Calcium Magnesium 2.5 Total Bilirubin AST ALT Alkaline Phosphatase Lactate Dehydrogenase 75 L Serum Total Protein Albumin Globulin Albumin/Globulin Ratio Specimen Rejected Blood Type Antibody Screen Crossmatch 12/21/18 12/21/18 12/21/18 08:43 09:16 10:50 WBC 3.1 L RBC 2.36 L Hgb 7.0 L Hct 21.1 L MCV 89.4 MCH 29.7 MCHC 33.2 RDW 15.4 H Plt Count 43 L MPV 9.1 L Seg Neutrophils % Band Neutrophils % Lymphocytes % Monocytes % Metamyelocytes % Neutrophils # Lymphocytes # Monocytes # Platelet Estimate Immature Plt Fraction 1.9 Baldom[place] Cells Smear Path Review PT INR Fibrinogen Sodium Potassium Chloride Carbon Dioxide BUN Creatinine Est GFR ( Amer) Est GFR (Non-Af Amer) BUN/Creatinine Ratio Glucose POC Glucose Calculated Osmolality Lactic Acid 1.4 Calcium Venous Ioniz Calcium 1.28 Magnesium Total Bilirubin AST ALT Alkaline Phosphatase Lactate Dehydrogenase Serum Total Protein Albumin Globulin Albumin/Globulin Ratio Specimen Rejected Blood Type Antibody Screen Crossmatch 12/21/18 11:05 WBC RBC Hgb Hct MCV MCH MCHC RDW Plt Count MPV Seg Neutrophils % Band Neutrophils % Lymphocytes % Monocytes % Metamyelocytes % Neutrophils # Lymphocytes # Monocytes # Platelet Estimate Immature Plt Fraction [place] Cells Smear Path Review PT INR Fibrinogen Sodium Potassium Chloride Carbon Dioxide BUN Creatinine Est GFR ( Amer) Est GFR (Non-Af Amer) BUN/Creatinine Ratio Glucose POC Glucose 131 H Calculated Osmolality Lactic Acid Calcium Venous Ioniz Calcium Magnesium Total Bilirubin AST ALT Alkaline Phosphatase Lactate Dehydrogenase Serum Total Protein Albumin Globulin Albumin/Globulin Ratio Specimen Rejected Blood Type Antibody Screen Crossmatch - ABG Interpretation ABG results: PT/INR, D-dimer PT 18.9 Seconds (9.4-12.1) H 12/21/18 08:43 Palliative Scale - Palliative Performance Scale How ambulatory is this patient?: Reduced (Pt POD #1, will continue to assess functional status after post-operative period.) Consult Discharge Plan - Plan Referrals: Sy Beaver DO [Primary Care Provider] -
[2018-12-21 21:23] LABS: Hematocrit 29.2 % (35.3-44.9); Hemoglobin 9.8 g/dL (11.5-15.4); Immature Platelets 2.2 % (1.1-6.1); Mean Corpuscular HGB Conc 33.6 g/dL (31.6-35.5); Mean Corpuscular Hemoglobin 29.1 pg (28.0-33.3); Mean Corpuscular Volume 86.6 fL (83.0-100.0); Mean Platelet Volume 9.3 fL (9.4-12.4); Red Blood Count 3.37 M/mcL (3.82-4.97); Red Cell Distribution Width 15.9 % (11.5-14.5); White Blood Count 5.1 K/mcL (4.3-11.1)
[2018-12-22] MEDS: MetroNIDAZOLE 500 MG/100 ML 500 MG/100 ML BAG IVPB SCH ×3 (00:02→15:18)
[2018-12-22] MEDS: *HR* FentaNYL (PF) 100 MCG/2 ML VIAL IVP PRN ×2 (00:18→05:33)
[2018-12-22 03:46] LABS: Eosinophils % 0.6 %; Mean Corpuscular HGB Conc 33.1 g/dL (31.6-35.5)
[2018-12-22 03:48] LABS: Hematocrit 29.6 % (35.3-44.9); Hemoglobin 9.8 g/dL (11.5-15.4); Immature Granulocytes % 0.4 % (0-4); Immature Platelets 2.7 % (1.1-6.1); Lymphocytes # 0.3 K/mcL (0.6-4.6); Mean Corpuscular Volume 87.6 fL (83.0-100.0); Mean Platelet Volume 8.8 fL (9.4-12.4); Monocytes # 0.3 K/mcL (0.0-1.3); Red Blood Count 3.38 M/mcL (3.82-4.97); Red Cell Distribution Width 15.9 % (11.5-14.5); White Blood Count 4.9 K/mcL (4.3-11.1)
[2018-12-22 04:05] LABS: Neutrophils # 4.2 K/mcL (1.6-8.9); Platelet Count 54 K/mcL (140-400)
[2018-12-22 04:07] LABS: Albumin 3.1 g/dL (3.5-5.7); Albumin/Globulin Ratio 1.6 (1.1-2.2); Bilirubin,Total 1.4 mg/dL (0.3-1.0); Calcium 9.2 mg/dL (8.6-10.3); Potassium 3.2 mEq/L (3.5-5.1); Total Protein 5.1 g/dL (6.4-8.9)
--- NOTE | 2018-12-22 04:38 | Electrocardiograph Report ---
[facility] Test Date: 2018-12-19 Pat Name: Amira Nieto Department: EXAM3 Room: 02 Gender: F Renewals Manager: : 1940 Requested By: Stephon Nelson Order Number: [id number] Reading MD: Shobha Cash Measurements Intervals [place] Rate: 76 P: 104 DC: 167 QRS: 89 QRSD: 155 T: 76 QT: 478 QTc: 538 Interpretive Statements Sinus rhythm Anterior infarct, acute (LAD) Prolonged QT interval Electronically Signed On 12-22-2018 4:36:29 EDT by Shobha Cash
[2018-12-22] MEDS: Norepinephrine 4 MG in 0.9 % Sodium Chloride 250 ML IVC SCH (05:22)
[2018-12-22] MEDS: Insulin LISPRO 300 UNITS/3 ML VIAL SQ SCH ×3 (05:26→18:10)
[2018-12-22] MEDS: Pantoprazole 40 MG VIAL IVP SCH ×2 (05:30→18:11)
[2018-12-22] MEDS ORDERED: *HR* Metoprolol 5 MG/5 ML VIAL IVP ONE ×4 (07:23→13:59)
[2018-12-22] MEDS ORDERED: Furosemide 20 MG/2 ML VIAL IVP ONE (07:35)
[2018-12-22] MEDS: Cefepime HCl 1,000 MG in Water for inj. (sterile) 10 ML IVP SCH ×2 (08:53→21:38)
[2018-12-22] MEDS: Fluconazole 200 MG/100 ML 200 MG/100 ML BAG IVPB SCH (08:54)
[2018-12-22 09:20] LABS: Magnesium 1.8 mg/dL (1.6-2.6)
--- NOTE | 2018-12-22 10:36 | Event Note ---
Date of Encounter: 12/22/18 Time of Encounter: 10:30 Patient is improving - had BM's, NG is out and ordered diet. Palliative was initially consulted for goals of care/code status discussion on this patient with liver disease/dementia, however, son who is POA remains in a [facility] himself. He has communicated with ICU staff that full aggressive care is to be done for this patient. Our team has discussed and although it is definitely appropriate patient for goals of care discussion, with the fact that she is recovering well from surgery and not declining, with her POA already expressing wishes and he is in hospital, it is not an appropriate time for this discussion to take place.
--- NOTE | 2018-12-22 11:58 | Pulmonology Progress Note ---
Date of Encounter: 12/22/18 Time of Encounter: 11:43 Assessment and Plan (1) Dementia Current Visit: No Status: Chronic Qualifiers: Dementia type: unspecified type Dementia behavioral disturbance: without behavioral disturbance Qualified Code(s): F03.90 - Unspecified dementia without behavioral disturbance (2) Elevated lactic acid level Current Visit: No Status: Resolved (3) Cirrhosis Current Visit: No Status: Chronic Qualifiers: Hepatic cirrhosis type: unspecified hepatic cirrhosis Ascites presence: without ascites Qualified Code(s): K74.60 - Unspecified cirrhosis of liver (4) Diabetes mellitus Current Visit: No Status: Chronic Qualifiers: Diabetes mellitus type: type 2 Diabetes mellitus nursing home insulin use: without termite control technician use Diabetes mellitus complication status: without co mplication Qualified Code(s): E11.9 - Type 2 diabetes mellitus without co mplications (5) CHF (congestive heart failure) Current Visit: No Status: Acute Qualifiers: Heart failure type: unspecified Heart failure chronicity: unspecified Qualified Code(s): I50.9 - Heart failure, unspecified (6) Sepsis Current Visit: No Status: Acute Qualifiers: Sepsis type: sepsis due to unspecified organism Sepsis acute organ dysfunction status: unspecified Qualified Code(s): A41.9 - Sepsis, unspecified organism (7) Goals of care, counseling/discussion Current Visit: No Status: Acute (8) Anemia Current Visit: No Status: Acute Qualifiers: Anemia type: unspecified type Qualified Code(s): D64.9 - Anemia, unspecified (9) Hypotension Current Visit: Yes Status: Acute Qualifiers: Hypotension type: unspecified hypotension type Qualified Code(s): I95.9 - Hypotension, unspecified (10) Perforated ulcer Current Visit: Yes Status: Acute (11) Frail elderly Current Visit: Yes Status: Acute (12) Renal insufficiency Current Visit: Yes Status: Acute (13) Atrial fibrillation with RVR Current Visit: Yes Status: Acute (14) Hypokalemia Current Visit: No Status: Resolved (15) DVT prophylaxis Current Visit: Yes Status: Acute Subjective Interval history: 78-year-old female past medical history of CHF, hypertension, hyperlipidemia, diabetes mellitus, dementia and liver cirrhosis presenting to the emergency department on 12/19 for acute onset abdominal pain that began that day. Patient notes feeling warm with family member saying that she is diaphoretic, pale, complaining of nausea/abdominal pain and appears to be more confused than her baseline. Patient previously been seen at the hospital and released for urinary tract infection for which she has been treated outpatient with amoxicillin. The patient was found to have a perforated duodenal ulcer and was taken for emergent exploratory laparotomy by Dr. Ramos Bingham of the surgical team. Postsurgery patient remained hypotensive requiring pressure support and was transferred to the ICU. Lactic acid peaked at 5.5 due to concerns of septicemia patient was started on Zosyn and fluconazole postoperatively patient also started on fentanyl drip for management of pain. Patient received several liters of IV fluid requiring diuresis, has received 60 mEq of Lasix at this point in 3 separate doses between yesterday and today with a total output now of over 8 L. Patient noted to be transiently in atrial fibrillation which was relieved with diuresis and diltiazem drip. Patient also noted to be anemic at that time with a hemoglobin level .8 she received 2 units of packed red blood cells with intermittent diuresis surrounding these infusions. Patient also noted today to be hypokalemic at 3.2 with a potassium rider being placed by ov [facility] resident. Patient has responded well to these therapies and has been taken off pressure support, she is noticeably demented at baseline but is otherwise alert and oriented with her surroundings and able to answer simple review of systems questioning. Patient removed her nasogastric tube this morning was evaluated by Dr. Ramos Bingham who states that her surgery she is appropriate for stepdown at this point with no further interventions or recommendations for medical treatment. The patient is otherwise hemodynamically stable this point and will be signed off by the ICU team for hospitalist medicine medical management. Please reconsult us for any further needs or espinoza rns. Objective PUL Vital signs: Last Vital Signs Temp 98.1 F 12/22/18 08:09 Pulse 82 12/22/18 11:00 Resp 16 12/22/18 11:00 BP 145/68 12/22/18 11:00 Pulse Ox 95 12/22/18 11:00 General appearance: no acute distress, alert Eyes: nonicteric ENT: oropharynx moist Neck: supple Effort: normal Cardiovascular: regular rate and rhythm Gastrointestinal: normoactive bowel sounds, soft, non-tender, non-distended Integumentary: normal Extremities: no cyanosis, no edema Musculoskeletal: no deformities non-focal exam Results - Laboratory Findings CBC and BMP: 12/22/18 03:35 12/22/18 03:35 PT/INR, D-dimer PT 18.9 Seconds (9.4-12.1) H 12/21/18 08:43 Abnormal lab findings: Abnormal lab results WBC 3.1 K/mcL (4.3-11.1) L 12/21/18 10:50 RBC 3.38 M/mcL (3.82-4.97) L 12/22/18 03:35 Hgb 9.8 g/dL (11.5-15.4) L 12/22/18 03:35 Hct 29.6 % (35.3-44.9) L 12/22/18 03:35 RDW 15.9 % (11.5-14.5) H 12/22/18 03:35 Plt Count 54 K/mcL (140-400) L 12/22/18 03:35 MPV 8.8 fL (9.4-12.4) L 12/22/18 03:35 Band Neutrophils % 10.0 % (0-4) H 12/21/18 08:19 Metamyelocytes % 2.0 % (0) H 12/21/18 04:30 Neutrophils # 11.4 K/mcL (1.6-8.9) H 12/20/18 09:22 Lymphocytes # 0.3 K/mcL (0.6-4.6) L 12/22/18 03:35 Platelet Estimate Marked Decrease (Normal) L 12/21/18 08:19 [place] Cells 1+ (Not Present) A 12/21/18 08:19 PT 18.9 Seconds (9.4-12.1) H 12/21/18 08:43 Sodium 133 mEq/L (136-145) L 12/19/18 20:50 Potassium 3.2 mEq/L (3.5-5.1) L 12/22/18 03:35 Chloride 111 mEq/L (98-107) H 12/22/18 03:35 Carbon Dioxide 19 mEq/L (23-29) L 12/21/18 03:43 BUN 43 mg/dL (8-23) H 12/22/18 03:35 Creatinine 1.35 mg/dL (0.60-1.20) H 12/21/18 03:43 Est GFR ( Amer) 57 (> 60) L 12/22/18 03:35 Est GFR (Non-Af Amer) 47 (> 60) L 12/22/18 03:35 BUN/Creatinine Ratio 39 (6-26) H 12/22/18 03:35 Glucose 138 mg/dL (70-105) H 12/22/18 03:35 POC Glucose 125 mg/dL (70-99) H 12/22/18 11:36 Calculated Osmolality 307 (280-300) H 12/22/18 03:35 Lactic Acid 3.8 mmol/L (0.5-2.2) H 12/20/18 23:52 Calcium 8.4 mg/dL (8.6-10.3) L 12/21/18 03:43 Magnesium 1.3 mg/dL (1.6-2.6) L 12/21/18 03:43 Total Bilirubin 1.4 mg/dL (0.3-1.0) H 12/22/18 03:35 Alkaline Phosphatase 33 Units/L (34-104) L 12/21/18 03:43 Lactate Dehydrogenase 75 Units/L (140-271) L 12/21/18 08:43 B-Natriuretic Peptide 195 pg/mL (Less than 100) H 12/20/18 12:27 Serum Total Protein 5.1 g/dL (6.4-8.9) L 12/22/18 03:35 Albumin 3.1 g/dL (3.5-5.7) L 12/22/18 03:35 Globulin 2.0 g/dL (2.4-3.5) L 12/22/18 03:35 Albumin/Globulin Ratio 1.0 (1.1-2.2) L 12/20/18 09:22 Crossmatch See Detail 12/19/18 20:50 - Clinical Findings Intake & Output: Intake & Output 12/21/18 12/22/18 12/22/18 23:59 07:59 15:59 Intake Total 458 / 3283 300 / 1470 1170 / 1470 Output Total 2520 / 6200 540 / 870 330 / 870 Balance -2061 / -2917 -240 / 600 840 / 600 Weight 67.2 kg Consult Discharge Plan - Plan Referrals: Sy Beaver DO [Primary Care Provider] -
[2018-12-22] MEDS ORDERED: NON-FORMULARY MEDICATION 1 EACH EACH (Risedronate Sodium [Actonel] 35 MG) PO SCH (12:07)
[2018-12-22] MEDS ORDERED: D5% in Water 1,000 ML IVC PRN (12:07)
[2018-12-22] MEDS ORDERED: Dextrose Gel 15 GM/37.5 ML TUBE PO PRN ×2 (12:07)
[2018-12-22] MEDS ORDERED: *HR* Dextrose 50 % in Water (Syg) 50 ML SYRINGE IVP PRN (12:07)
[2018-12-22] MEDS ORDERED: Saliva Stimulant 100ml BOTTLE PO PRN (12:07)
--- NOTE | 2018-12-22 13:24 | AcuteCareSurgery Progress Note ---
Date of Encounter: 12/22/18 Time of Encounter: 09:00 - Assessment and Plan (1) Perforated abdominal viscus Current Visit: Yes Status: Acute POD#2 Exploratory laparotomy with repair of perforated gastric ulcer. Pt is hemodymanically stable with normal BP. NSR now, after afib with RVR yesterday. Afeb. WBC wnl. H&H stable. Continue IV abx. Cardizem gtt per hospitalists. OK to transfer to step down when OK with hospitalists. (2) Septic shock Current Visit: Yes Status: Acute resolved (3) Cirrhosis Current Visit: Yes Status: Acute Qualifiers: Hepatic cirrhosis type: alcoholic cirrhosis Ascites presence: without ascites Qualified Code(s): K70.30 - Alcoholic cirrhosis of liver without ascites (4) Dementia Current Visit: No Status: Chronic Qualifiers: Dementia type: unspecified type Dementia behavioral disturbance: without behavioral disturbance Qualified Code(s): F03.90 - Unspecified dementia without behavioral disturbance (5) Diabetes mellitus type 2 in obese Current Visit: No Status: Chronic (6) HTN (hypertension) Current Visit: No Status: Chronic Qualifiers: Hypertension type: essential hypertension Qualified Code(s): I10 - Essential (primary) hypertension (7) A-fib Current Visit: Yes Status: Acute Qualifiers: Atrial fibrillation type: paroxysmal Qualified Code(s): I48.0 - Paroxysmal atrial fibrillation Subjective Patient reports: no new complaints, feels better, still having pain, pain is l ess, tolerating liquids well, flatus, bowel movement, afebrile Narrative: POD#2 Ex lap with repair perforated gastric ulcer. Objective Vital Signs - Last 8 Hours Temp Pulse Resp BP Pulse Ox 12/22/18 12:00 80 18 146/70 95 12/22/18 11:54 98.3 F 12/22/18 11:00 82 16 145/68 95 12/22/18 10:00 76 18 144/69 94 12/22/18 09:00 81 20 137/64 94 12/22/18 08:09 98.1 F 12/22/18 08:06 73 12/22/18 07:30 95 18 133/82 95 12/22/18 06:00 79 14 144/65 98 Intake and Output 12/21/18 12/22/18 12/22/18 23:59 07:59 15:59 Intake Total 458 / 3283 300 / 2070 177 / 0 Output Total 2520 / 6200 540 / 2020 148 / 2020 Balance -2061 / -2917 -240 / 50 290 / 50 Intake: IV Fluids 143 / 2608 300 / 510 210 / 510 Cardizem 125 MG In 0.9 % Sodium 33 / 80 0 / 0 Chloride 100 ML @ 5 MG/HR 5 mls/hr IVC CONT KALIN Rx#: [id number] Maxipime 1,000 MG In Water for inj. (sterile) 10 ML @ 300 mls/ hr IVP Q12H KALIN Rx#:[id number] Diflucan Premix 200 MG/100 ML 100 / 100 200 mg In 100 ml @ 100 mls/hr IVPB DAILY KALIN Rx#:[id number] Flagyl Premix 500 MG/100 ML 500 100 / 200 100 / 200 100 / 200 mg In 100 ml @ 100 mls/hr IVPB Q8H KALIN Rx#:[id number] Potassium Chloride 20 mEq/100 200 / 200 mL 20 meq In 100 ml @ 100 mls/ hr IVPB Q1H PRN Rx#:[id number] Oral 1560 / 1560 Blood Product 315 / 675 Rbcs Leuko Poor As-1 Unit 315 / 315 [id number] Output: Catheter 2050 / 4700 275 / 1625 1350 / 1625 Gastric Drainage 0 / 150 0 / 0 Wound Drainage 470 / 1320 265 / 395 130 / 395 ABDOMEN 470 / 1320 265 / 395 130 / 395 Other: Meal Lunch Percent of Meal Consumed 90% Stool Size Moderate Stool Consistency liquid Stool Characteristics Tarry Weight 67.2 kg Blood Glucose* 131 123 125 Patient Weight 12/22/18 23:59 Weight 67.2 kg - General physical appearance no distress, moderate pain (as expected after surgery) - Eyes PERRL, normal ocular movement - ENT normal mucosa, no congestion - Neck Neck exam: trachea midline, no venous distension - Respiratory normal respiratory effort, clear to auscultation - Cardiovascular Cardiovascular exam: Present: RRR, JVD - Abdomen Abdomen: Present: bowel sounds present, soft, tender. Absent: guarding, rebound - Incision Incision: Present: clean and dry (LARRY in place), intact - Neurologic CN 2-12 grossly intact, normal coordination - Musculoskeletal normal posture - Psychiatric oriented to time, oriented to person, oriented to place - Labs 12/22/18 03:35 12/22/18 03:35 Diabetes panel 12/22/18 Range/Units 03:35 Sodium 142 (136-145) mEq/L Potassium 3.2 L (3.5-5.1) mEq/L Chloride 111 H (98-107) mEq/L Carbon Dioxide 24 (23-29) mEq/L BUN 43 H (8-23) mg/dL Creatinine 1.11 (0.60-1.20) mg/dL Glucose 138 H (70-105) mg/dL Calcium 9.2 (8.6-10.3) mg/dL AST 27 (13-39) Units/L ALT 19 (7-52) Units/L Alkaline Phosphatase 47 (34-104) Units/L Albumin 3.1 L (3.5-5.7) g/dL Calcium panel 12/22/18 Range/Units 03:35 Calcium 9.2 (8.6-10.3) mg/dL Albumin 3.1 L (3.5-5.7) g/dL Pituitary panel 12/22/18 Range/Units 03:35 Sodium 142 (136-145) mEq/L Potassium 3.2 L (3.5-5.1) mEq/L Chloride 111 H (98-107) mEq/L Carbon Dioxide 24 (23-29) mEq/L BUN 43 H (8-23) mg/dL Creatinine 1.11 (0.60-1.20) mg/dL Glucose 138 H (70-105) mg/dL Calcium 9.2 (8.6-10.3) mg/dL Adrenal panel 12/22/18 Range/Units 03:35 Sodium 142 (136-145) mEq/L Potassium 3.2 L (3.5-5.1) mEq/L Chloride 111 H (98-107) mEq/L Carbon Dioxide 24 (23-29) mEq/L BUN 43 H (8-23) mg/dL Creatinine 1.11 (0.60-1.20) mg/dL Glucose 138 H (70-105) mg/dL Calcium 9.2 (8.6-10.3) mg/dL Total Bilirubin 1.4 H (0.3-1.0) mg/dL AST 27 (13-39) Units/L ALT 19 (7-52) Units/L Alkaline Phosphatase 47 (34-104) Units/L Albumin 3.1 L (3.5-5.7) g/dL Consult Discharge Plan - Plan Referrals: Sy Beaver DO [Primary Care Provider] -
[2018-12-22] MEDS: Sucralfate 1 GM TABLET PO SCH ×2 (15:18→21:38)
[2018-12-22] MEDS: Lactobacillus 1 EACH CAP.SPRINK PO SCH (21:38)
[2018-12-22] MEDS: Furosemide 20 MG TABLET PO SCH (21:38)
[2018-12-22] MEDS: *HR* OxyCODONE/APAP 10/325 TABLET PO PRN (23:22)
[2018-12-23] MEDS: MetroNIDAZOLE 500 MG/100 ML 500 MG/100 ML BAG IVPB SCH ×3 (00:57→16:10)
[2018-12-23] MEDS: Insulin LISPRO 300 UNITS/3 ML VIAL SQ SCH ×5 (01:02→20:54)
[2018-12-23] MEDS: *HR* FentaNYL (PF) 100 MCG/2 ML VIAL IVP PRN ×2 (03:43→23:54)
[2018-12-23 05:48] LABS: Basophils % 0.4 %; Hemoglobin 10.5 g/dL (11.5-15.4); Red Cell Distribution Width 15.9 % (11.5-14.5)
[2018-12-23 05:50] LABS: Eosinophils # 0.1 K/mcL (0.0-0.6); Hematocrit 31.4 % (35.3-44.9); Immature Platelets 3.4 % (1.1-6.1); Lymphocytes # 0.7 K/mcL (0.6-4.6); Lymphocytes % 13.8 %; Mean Corpuscular HGB Conc 33.4 g/dL (31.6-35.5); Mean Corpuscular Hemoglobin 29.2 pg (28.0-33.3); Mean Corpuscular Volume 87.2 fL (83.0-100.0); Mean Platelet Volume 9.9 fL (9.4-12.4); Monocytes # 0.4 K/mcL (0.0-1.3); Neutrophils # 3.8 K/mcL (1.6-8.9); Segmented Neutrophils % 75.8 %
[2018-12-23 06:02] LABS: Platelet Count 70 K/mcL (140-400)
[2018-12-23 06:07] LABS: Alanine Aminotransferase 17 Units/L (7-52); Albumin/Globulin Ratio 1.5 (1.1-2.2); Alkaline Phosphatase 60 Units/L (34-104); Aspartate Amino Transferase 25 Units/L (13-39); BUN/Creatinine Ratio 40 (6-26); Bilirubin,Total 1.2 mg/dL (0.3-1.0); Blood Urea Nitrogen 37 mg/dL (8-23); Calcium 9.1 mg/dL (8.6-10.3); Carbon Dioxide 26 mEq/L (23-29); Chloride 103 mEq/L (98-107); Glucose 134 mg/dL (70-105); Osmolality,Calculated 297 (280-300); Potassium 3.3 mEq/L (3.5-5.1); Sodium 138 mEq/L (136-145); eGFR For African Americans > 60 (> 60); eGFR For Non-African Americans 59 (> 60)
--- NOTE | 2018-12-23 08:34 | Internal Med Progress Note ---
Hospitalist Progress Note - Encounter Date of Encounter: 12/23/18 Time of Encounter: 09:00 - Subjective Interval History: Transferred to the floor overnight - Exam Vitals: Temp Pulse Resp BP Pulse Ox 98.2 F 78 18 96/56 93 12/23/18 07:47 12/23/18 07:47 12/23/18 07:47 12/23/18 07:47 12/23/18 07:47 Exam: General appearance: no acute distress, alert and oriented to person and place Eyes: nonicteric ENT: oropharynx moist Neck: supple, no lymphadenopathy Effort: normal Auscultation: bilateral: clear Cardiovascular: irregular rhythm (Tachycardia at ~140) Gastrointestinal: normoactive bowel sounds, soft, tender (surgical incision on the left side of the abd covered by a wound dressing without warmth or erythema in the surrounding area. Drain placed on the Right side of the abd with minimal output) Integumentary: normal Extremities: no cyanosis, no edema Musculoskeletal: no deformities non-focal exam (A&Ox2), pupils equal and round mood appropriate, affect normal - Assessment and Plan (1) Septic shock Current Visit: Yes Status: Acute Assessment and Plan: Likely 2/2 to perforated viscus with bacterial peritonitis. Transferred out of the ICU yesterday Weaned off pressors. continue cefepime, flagyl and fluconazole per surgery (2) Perforated abdominal viscus Current Visit: Yes Status: Acute Assessment and Plan: POD #3 s/p exploaratory laparotomy for perforated viscus. Stable Tolerating diet (3) Atrial fibrillation with RVR Current Visit: Yes Status: Acute Assessment and Plan: Patient went into afib in ICU and was started on a cardizem drip Currently rate controlled on beta blockers. [id number] score >3. Will need anticoagulation once clear from surgical standpoint (4) Bacterial peritonitis Current Visit: Yes Status: Acute Assessment and Plan: Continue antibiotics per surgery (5) Cirrhosis Current Visit: Yes Status: Acute Assessment and Plan: Stable (6) DVT prophylaxis Current Visit: Yes Status: Acute Assessment and Plan: SCDs - Time Spent with Patient Total time spent is greater than 50% in coordination of care (as documented) at patient's floor/unit and/or counseling patient: Internal Medicine: Result - Labs CBC & Chem 7: 12/23/18 05:20 12/23/18 05:20 Labs: Short CBC 12/23/18 Range/Units 05:20 WBC 5.0 (4.3-11.1) K/mcL Hgb 10.5 L (11.5-15.4) g/dL Hct 31.4 L (35.3-44.9) % Plt Count 70 L (140-400) K/mcL Neutrophils # 3.8 (1.6-8.9) K/mcL BMP 12/22/18 12/23/18 03:35 05:20 Sodium 142 138 Potassium 3.2 L 3.3 L Chloride 111 H 103 Carbon Dioxide 24 26 BUN 43 H 37 H Creatinine 1.11 0.92 Glucose 138 H 134 H Calcium 9.2 9.1 Liver Function 12/22/18 12/23/18 Range/Units 03:35 05:20 Total Bilirubin 1.4 H 1.2 H (0.3-1.0) mg/dL AST 27 25 (13-39) Units/L ALT 19 17 (7-52) Units/L Alkaline Phosphatase 47 60 (34-104) Units/L Albumin 3.1 L 3.0 L (3.5-5.7) g/dL - ABG Interpretation ABG results: PT/INR, D-dimer PT 18.9 Seconds (9.4-12.1) H 12/21/18 08:43 Consult Discharge Plan - Plan Referrals: Sy Beaver DO [Primary Care Provider] - (5) Cirrhosis Qualifiers: Hepatic cirrhosis type: alcoholic cirrhosis Ascites presence: without ascites Qualified Code(s): K70.30 - Alcoholic cirrhosis of liver without ascites
[2018-12-23] MEDS: Pantoprazole 40 MG VIAL IVP SCH ×2 (09:18→16:09)
[2018-12-23] MEDS: Sucralfate 1 GM TABLET PO SCH ×4 (09:19→20:41)
[2018-12-23] MEDS: Furosemide 20 MG TABLET PO SCH ×2 (09:19→20:41)
[2018-12-23] MEDS: Potassium Chloride Elixir 20 MEQ/15 ML UDC PO SCH ×2 (09:20→12:22)
[2018-12-23] MEDS: Cefepime HCl 1,000 MG in Water for inj. (sterile) 10 ML IVP SCH ×2 (09:25→20:41)
[2018-12-23] MEDS: Fluconazole 200 MG/100 ML 200 MG/100 ML BAG IVPB SCH (09:31)
--- NOTE | 2018-12-23 10:14 | AcuteCareSurgery Progress Note ---
Date of Encounter: 12/23/18 Time of Encounter: 10:00 - Assessment and Plan (1) Perforated abdominal viscus Current Visit: Yes Status: Acute POD#3 Exploratory laparotomy with repair of perforated gastric ulcer. Pt is tolerating regular diet. Cardizem gtt per hospitalists. JOEY barrientos. PT/OT. (2) Septic shock Current Visit: Yes Status: Acute resolved (3) Cirrhosis Current Visit: Yes Status: Acute Qualifiers: Hepatic cirrhosis type: alcoholic cirrhosis Ascites presence: without ascites Qualified Code(s): K70.30 - Alcoholic cirrhosis of liver without ascites (4) Dementia Current Visit: No Status: Chronic Qualifiers: Dementia type: unspecified type Dementia behavioral disturbance: without behavioral disturbance Qualified Code(s): F03.90 - Unspecified dementia without behavioral disturbance (5) Diabetes mellitus type 2 in obese Current Visit: No Status: Chronic (6) HTN (hypertension) Current Visit: No Status: Chronic Qualifiers: Hypertension type: essential hypertension Qualified Code(s): I10 - Essential (primary) hypertension (7) A-fib Current Visit: Yes Status: Acute Qualifiers: Atrial fibrillation type: paroxysmal Qualified Code(s): I48.0 - Paroxysmal atrial fibrillation Subjective Patient reports: no new complaints, feels better, still having pain, pain is less, tolerating liquids well, flatus, bowel movement, afebrile Objective Vital Signs - Last 8 Hours Temp Pulse Resp BP Pulse Ox 12/23/18 07:47 98.2 F 78 18 96/56 93 12/23/18 03:58 98.3 F 67 20 100/57 92 Intake and Output 12/22/18 12/23/18 12/23/18 23:59 07:59 15:59 Intake Total 770 / 3320 200 / 380 180 / 380 Output Total 1185 / 3925 515 / 515 Balance -415 / -605 -315 / -135 180 / -135 Intake: IV Fluids 110 / 620 100 / 100 Maxipime 1,000 MG In Water for inj. (sterile) 10 ML @ 300 mls/ hr IVP Q12H [facility] Rx#:[id number] Flagyl Premix 500 MG/100 ML 500 100 / 100 100 / 100 mg In 100 ml @ 100 mls/hr IVPB Q8H [facility] Rx#:[id number] Oral 660 / 2700 100 / 280 180 / 280 Output: Catheter 800 / 3025 250 / 250 Wound Drainage 385 / 900 265 / 265 ABDOMEN 385 / 900 265 / 265 Other: Weight 66.5 kg Blood Glucose* 120 Patient Weight 12/23/18 23:59 Weight 66.5 kg - General physical appearance no distress, moderate pain (as expected ) - Eyes PERRL, normal ocular movement - ENT no congestion, dry mucosa - Neck Neck exam: trachea midline, no venous distension - Respiratory normal respiratory effort, clear to auscultation - Cardiovascular Cardiovascular exam: Present: RRR, JVD - Abdomen Abdomen: Present: bowel sounds present, soft, tender - Incision Incision: Present: clean and dry, intact (LARRY in place) - Genitourinary other (catheter in place) - Neurologic CN 2-12 grossly intact, normal coordination - Musculoskeletal normal posture - Psychiatric oriented to time, oriented to person, oriented to place - Labs 12/23/18 05:20 12/23/18 05:20 Diabetes panel 12/23/18 Range/Units 05:20 Sodium 138 (136-145) mEq/L Potassium 3.3 L (3.5-5.1) mEq/L Chloride 103 (98-107) mEq/L Carbon Dioxide 26 (23-29) mEq/L BUN 37 H (8-23) mg/dL Creatinine 0.92 (0.60-1.20) mg/dL Glucose 134 H (70-105) mg/dL Calcium 9.1 (8.6-10.3) mg/dL AST 25 (13-39) Units/L ALT 17 (7-52) Units/L Alkaline Phosphatase 60 (34-104) Units/L Albumin 3.0 L (3.5-5.7) g/dL Calcium panel 12/23/18 Range/Units 05:20 Calcium 9.1 (8.6-10.3) mg/dL Albumin 3.0 L (3.5-5.7) g/dL Pituitary panel 12/23/18 Range/Units 05:20 Sodium 138 (136-145) mEq/L Potassium 3.3 L (3.5-5.1) mEq/L Chloride 103 (98-107) mEq/L Carbon Dioxide 26 (23-29) mEq/L BUN 37 H (8-23) mg/dL Creatinine 0.92 (0.60-1.20) mg/dL Glucose 134 H (70-105) mg/dL Calcium 9.1 (8.6-10.3) mg/dL Adrenal panel 12/23/18 Range/Units 05:20 Sodium 138 (136-145) mEq/L Potassium 3.3 L (3.5-5.1) mEq/L Chloride 103 (98-107) mEq/L Carbon Dioxide 26 (23-29) mEq/L BUN 37 H (8-23) mg/dL Creatinine 0.92 (0.60-1.20) mg/dL Glucose 134 H (70-105) mg/dL Calcium 9.1 (8.6-10.3) mg/dL Total Bilirubin 1.2 H (0.3-1.0) mg/dL AST 25 (13-39) Units/L ALT 17 (7-52) Units/L Alkaline Phosphatase 60 (34-104) Units/L Albumin 3.0 L (3.5-5.7) g/dL Consult Discharge Plan - Plan Referrals: Sy Beaver DO [Primary Care Provider] -
[2018-12-23] MEDS: *HR* OxyCODONE/APAP 10/325 TABLET PO PRN ×2 (12:19→20:41)
[2018-12-23] MEDS: Lactobacillus 1 EACH CAP.SPRINK PO SCH ×2 (12:20→20:42)
--- NOTE | 2018-12-23 23:55 | Electrocardiograph Report ---
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
--- NOTE | 2018-12-23 23:59 | Electrocardiograph Report ---
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
[2018-12-24] MEDS: MetroNIDAZOLE 500 MG/100 ML 500 MG/100 ML BAG IVPB SCH ×3 (01:38→16:40)
[2018-12-24] MEDS: *HR* OxyCODONE/APAP 10/325 TABLET PO PRN ×3 (03:41→18:23)
[2018-12-24 03:55] LABS: Basophils % 0.5 %; Red Cell Distribution Width 15.9 % (11.5-14.5)
[2018-12-24 03:57] LABS: Eosinophils # 0.2 K/mcL (0.0-0.6); Eosinophils % 2.8 %; Hematocrit 31.8 % (35.3-44.9); Hemoglobin 10.5 g/dL (11.5-15.4); Immature Granulocytes % 1.3 % (0-4); Immature Platelets 3.3 % (1.1-6.1); Lymphocytes # 0.8 K/mcL (0.6-4.6); Lymphocytes % 12.5 %; Mean Corpuscular Hemoglobin 29.2 pg (28.0-33.3); Mean Corpuscular Volume 88.3 fL (83.0-100.0); Mean Platelet Volume 10.4 fL (9.4-12.4); Monocytes # 0.6 K/mcL (0.0-1.3); Monocytes % 9.3 %; Segmented Neutrophils % 73.6 %; White Blood Count 6.3 K/mcL (4.3-11.1)
[2018-12-24 03:59] LABS: Neutrophils # 4.6 K/mcL (1.6-8.9); Platelet Count 80 K/mcL (140-400)
[2018-12-24 04:17] LABS: Alanine Aminotransferase 20 Units/L (7-52); Albumin 2.8 g/dL (3.5-5.7); Albumin/Globulin Ratio 1.3 (1.1-2.2); Alkaline Phosphatase 67 Units/L (34-104); Aspartate Amino Transferase 29 Units/L (13-39); BUN/Creatinine Ratio 39 (6-26); Blood Urea Nitrogen 37 mg/dL (8-23); Calcium 9.4 mg/dL (8.6-10.3); Carbon Dioxide 24 mEq/L (23-29); Chloride 104 mEq/L (98-107); Globulin 2.2 g/dL (2.4-3.5); Glucose 121 mg/dL (70-105); Osmolality,Calculated 288 (280-300); Potassium 4.4 mEq/L (3.5-5.1); Sodium 134 mEq/L (136-145); eGFR For African Americans > 60 (> 60); eGFR For Non-African Americans 56 (> 60)
[2018-12-24] MEDS: Pantoprazole 40 MG VIAL IVP SCH ×2 (05:47→17:16)
--- NOTE | 2018-12-24 08:30 | Internal Med Progress Note ---
Hospitalist Progress Note - Encounter Date of Encounter: 12/24/18 Time of Encounter: 10:00 - Subjective Interval History: No acute events overnight - Exam Vitals: Temp Pulse Resp BP Pulse Ox 98.7 F 79 15 106/62 94 12/24/18 08:03 12/24/18 08:03 12/24/18 08:03 12/24/18 08:03 12/24/18 08:03 Exam: General appearance: no acute distress, alert and oriented to person and place Eyes: nonicteric ENT: oropharynx moist Neck: supple, no lymphadenopathy Effort: normal Auscultation: bilateral: clear Cardiovascular: irregular rhythm (Tachycardia at ~140) Gastrointestinal: normoactive bowel sounds, soft, tender (surgical incision on the left side of the abd covered by a wound dressing without warmth or erythema in the surrounding area. Drain placed on the Right side of the abd with minimal output) Integumentary: normal Extremities: no cyanosis, no edema Musculoskeletal: no deformities non-focal exam (A&Ox2), pupils equal and round mood appropriate, affect normal - Assessment and Plan (1) Septic shock Current Visit: Yes Status: Acute Assessment and Plan: Likely 2/2 to perforated viscus with bacterial peritonitis. Transferred out of the ICU on 12/22 Weaned off pressors. continue cefepime, flagyl and fluconazole per surgery Improved and clinically stable (2) Perforated abdominal viscus Current Visit: Yes Status: Acute Assessment and Plan: POD #4 s/p exploratory laparotomy for perforated viscus. Stable Tolerating diet (3) Atrial fibrillation with RVR Current Visit: Yes Status: Acute Assessment and Plan: Patient went into afib in ICU and was started on a cardizem drip Currently rate controlled on beta blockers. [id number] score >3. Will not recommend anticoagulation due to history of bleeding gastric ulcers (4) Bacterial peritonitis Current Visit: Yes Status: Acute Assessment and Plan: Continue antibiotics per surgery (5) Cirrhosis Current Visit: Yes Status: Acute Assessment and Plan: Stable (6) DVT prophylaxis Current Visit: Yes Status: Acute Assessment and Plan: SCDs - Time Spent with Patient Total time spent is greater than 50% in coordination of care (as documented) at patient's floor/unit and/or counseling patient: Internal Medicine: Result - Labs CBC & Chem 7: 12/24/18 03:30 12/24/18 03:30 Labs: Short CBC 12/24/18 Range/Units 03:30 WBC 6.3 (4.3-11.1) K/mcL Hgb 10.5 L (11.5-15.4) g/dL Hct 31.8 L (35.3-44.9) % Plt Count 80 L (140-400) K/mcL Neutrophils # 4.6 (1.6-8.9) K/mcL BMP 12/24/18 03:30 Sodium 134 L Potassium 4.4 D Chloride 104 Carbon Dioxide 24 BUN 37 H Creatinine 0.96 Glucose 121 H Calcium 9.4 Liver Function 12/24/18 Range/Units 03:30 Total Bilirubin 1.0 (0.3-1.0) mg/dL AST 29 (13-39) Units/L ALT 20 (7-52) Units/L Alkaline Phosphatase 67 (34-104) Units/L Albumin 2.8 L (3.5-5.7) g/dL - ABG Interpretation ABG results: PT/INR, D-dimer PT 18.9 Seconds (9.4-12.1) H 12/21/18 08:43 Consult Discharge Plan - Plan Referrals: Sy Beaver DO [Primary Care Provider] - (5) Cirrhosis Qualifiers: Hepatic cirrhosis type: alcoholic cirrhosis Ascites presence: without ascites Qualified Code(s): K70.30 - Alcoholic cirrhosis of liver without ascites
[2018-12-24] MEDS: Sucralfate 1 GM TABLET PO SCH ×4 (09:41→22:16)
[2018-12-24] MEDS: Cefepime HCl 1,000 MG in Water for inj. (sterile) 10 ML IVP SCH ×2 (09:47→20:34)
[2018-12-24] MEDS: Fluconazole 200 MG/100 ML 200 MG/100 ML BAG IVPB SCH (09:49)
[2018-12-24] MEDS: Furosemide 20 MG TABLET PO SCH ×2 (09:50→20:33)
[2018-12-24] MEDS: Lactobacillus 1 EACH CAP.SPRINK PO SCH ×2 (09:50→20:32)
[2018-12-24] MEDS: Insulin LISPRO 300 UNITS/3 ML VIAL SQ SCH ×4 (09:50→20:34)
[2018-12-24] MEDS ORDERED: *HR* OxyCODONE/APAP 10/325 TABLET PO PRN (10:17)
[2018-12-24] MEDS: *HR* FentaNYL (PF) 100 MCG/2 ML VIAL IVP PRN ×3 (11:30→23:12)
[2018-12-25] MEDS: MetroNIDAZOLE 500 MG/100 ML 500 MG/100 ML BAG IVPB SCH ×3 (01:04→18:00)
[2018-12-25] MEDS: *HR* OxyCODONE/APAP 10/325 TABLET PO PRN ×2 (01:04→14:58)
[2018-12-25] MEDS: *HR* FentaNYL (PF) 100 MCG/2 ML VIAL IVP PRN (04:40)
[2018-12-25 05:12] LABS: Red Cell Distribution Width 15.5 % (11.5-14.5)
[2018-12-25 05:13] LABS: Basophils % 0.4 %; Eosinophils # 0.2 K/mcL (0.0-0.6); Eosinophils % 2.5 %; Hematocrit 31.6 % (35.3-44.9); Hemoglobin 10.4 g/dL (11.5-15.4); Immature Granulocytes % 3.7 % (0-4); Immature Platelets 4.9 % (1.1-6.1); Lymphocytes # 1.1 K/mcL (0.6-4.6); Lymphocytes % 13.1 %; Mean Corpuscular HGB Conc 32.9 g/dL (31.6-35.5); Mean Corpuscular Hemoglobin 29.4 pg (28.0-33.3); Mean Corpuscular Volume 89.3 fL (83.0-100.0); Monocytes # 0.8 K/mcL (0.0-1.3); Monocytes % 9.5 %; Neutrophils # 5.9 K/mcL (1.6-8.9); Red Blood Count 3.54 M/mcL (3.82-4.97); Segmented Neutrophils % 70.8 %; White Blood Count 8.3 K/mcL (4.3-11.1)
[2018-12-25 05:17] LABS: Platelet Count 88 K/mcL (140-400)
[2018-12-25] MEDS: Pantoprazole 40 MG VIAL IVP SCH ×2 (05:20→18:00)
[2018-12-25 05:31] LABS: Calcium 9.4 mg/dL (8.6-10.3); Magnesium 1.5 mg/dL (1.6-2.6); Phosphorous 4.1 mg/dL (2.7-4.5); Potassium 4.2 mEq/L (3.5-5.1)
[2018-12-25] MEDS ORDERED: 0.9 % Sodium Chloride 1,000 ML IV ONE (08:04)
--- NOTE | 2018-12-25 08:06 | Internal Med Progress Note ---
Hospitalist Progress Note - Encounter Date of Encounter: 12/25/18 Time of Encounter: 08:07 - Subjective Interval History: No acute events overnight - Exam Vitals: Temp Pulse Resp BP Pulse Ox 98.1 F 97 15 79/59 94 12/25/18 06:59 12/25/18 06:59 12/25/18 06:59 12/25/18 07:47 12/25/18 06:59 Exam: General appearance: no acute distress, alert and oriented to person and place Eyes: nonicteric ENT: oropharynx moist Neck: supple, no lymphadenopathy Effort: normal Auscultation: bilateral: clear Cardiovascular: irregular rhythm (Tachycardia at ~140) Gastrointestinal: normoactive bowel sounds, soft, tender (surgical incision on the left side of the abd covered by a wound dressing without warmth or erythema in the surrounding area. Drain placed on the Right side of the abd with minimal output) Integumentary: normal Extremities: no cyanosis, no edema Musculoskeletal: no deformities non-focal exam (A&Ox2), pupils equal and round mood appropriate, affect normal - Assessment and Plan (1) Septic shock Current Visit: Yes Status: Acute Assessment and Plan: Likely 2/2 to perforated viscus with bacterial peritonitis. Transferred out of the ICU on 12/22 Weaned off pressors. continue cefepime, flagyl and fluconazole per surgery Improved and clinically stable. PT and OT to assess (2) Perforated abdominal viscus Current Visit: Yes Status: Acute Assessment and Plan: POD #5 s/p exploratory laparotomy for perforated viscus. Stable Tolerating diet (3) Atrial fibrillation with RVR Current Visit: Yes Status: Acute Assessment and Plan: Patient went into afib in ICU and was started on a cardizem drip Currently rate controlled on beta blockers. [id number] score >3. Will not recommend anticoagulation due to history of bleeding gastric ulcers (4) Bacterial peritonitis Current Visit: Yes Status: Acute Assessment and Plan: Continue antibiotics per surgery (5) Cirrhosis Current Visit: Yes Status: Acute Assessment and Plan: Stable (6) DVT prophylaxis Current Visit: Yes Status: Acute Assessment and Plan: SCDs - Time Spent with Patient Total time spent is greater than 50% in coordination of care (as documented) at patient's floor/unit and/or counseling patient: Internal Medicine: Result - Labs CBC & Chem 7: 12/25/18 04:55 12/25/18 04:55 Labs: Short CBC 12/25/18 Range/Units 04:55 WBC 8.3 (4.3-11.1) K/mcL Hgb 10.4 L (11.5-15.4) g/dL Hct 31.6 L (35.3-44.9) % Plt Count 88 L (140-400) K/mcL Neutrophils # 5.9 (1.6-8.9) K/mcL BMP 12/25/18 04:55 Sodium 132 L Potassium 4.2 Chloride 99 Carbon Dioxide 25 BUN 39 H Creatinine 1.19 Glucose 144 H Calcium 9.4 - ABG Interpretation ABG results: PT/INR, D-dimer PT 18.9 Seconds (9.4-12.1) H 12/21/18 08:43 Consult Discharge Plan - Plan Referrals: Sy Beaver DO [Primary Care Provider] - (5) Cirrhosis Qualifiers: Hepatic cirrhosis type: alcoholic cirrhosis Ascites presence: without ascites Qualified Code(s): K70.30 - Alcoholic cirrhosis of liver without ascites
[2018-12-25] MEDS: Furosemide 20 MG TABLET PO SCH (08:12)
[2018-12-25] MEDS: Insulin LISPRO 300 UNITS/3 ML VIAL SQ SCH ×4 (08:28→23:39)
[2018-12-25] MEDS: Sucralfate 1 GM TABLET PO SCH ×4 (08:28→23:41)
[2018-12-25] MEDS: Lactobacillus 1 EACH CAP.SPRINK PO SCH ×2 (08:28→23:38)
[2018-12-25] MEDS: Fluconazole 200 MG/100 ML 200 MG/100 ML BAG IVPB SCH (08:29)
[2018-12-25] MEDS: Cefepime HCl 1,000 MG in Water for inj. (sterile) 10 ML IVP SCH ×2 (08:30→23:38)
--- NOTE | 2018-12-25 09:22 | AcuteCareSurgery Progress Note ---
Date of Encounter: 12/25/18 Time of Encounter: 07:25 - Assessment and Plan (1) Perforated ulcer Current Visit: Yes Status: Acute The patient is postoperative day 1 from repair of perforated duodenal ulcer. No bowel sounds she had. Maintain the nasogastric tube and Jefferson-Akers drain. Continue supportive care. The patient is currently undergoing workup for pancytopenia Twin Walters MD FACS Subjective Narrative: The patient is seen and evaluated on morning rounds with the acute care surgery team. She is postoperative day 5 from repair of duodenal ulcer. She is doing quite well and tolerating diet. She should be ready for extended care facility tomorrow, however, she is begging to not go to the extended care facility and to let her go home. It is the opinion of the acute care surgery service that she would greatly benefit from rehabilitation and evaluation by physical therapy and occupational therapy with inpatient treatment plan. Ready for transfer to rehabilitation from a surgical standpoint. After evaluating the patient was brought her attention and she had hypotension. She did not eat much for her diet. She was given a 500 mL fluid bolus and we will check for normalization of her systolic blood pressure. She was awake and alert. She does have a Jefferson- Akers drain that demonstrated no evidence of bleeding or hemorrhage. The duodenal ulcer repair appears to be intact Objective Vital Signs - Last 8 Hours Temp Pulse Resp BP Pulse Ox 12/25/18 08:30 105/68 12/25/18 07:47 79/59 12/25/18 06:59 98.1 F 97 15 76/48 94 12/25/18 04:29 97.9 F 85 14 117/79 97 Intake and Output 12/24/18 12/25/18 12/25/18 23:59 07:59 15:59 Intake Total 510 / 940 300 / 300 Output Total 180 / 415 220 / 240 20 / 240 Balance 330 / 525 80 / 60 -20 / 60 Intake: IV Fluids 110 / 420 100 / 100 Maxipime 1,000 MG In Water for inj. (sterile) 10 ML @ 300 mls/ hr IVP Q12H [facility] Rx#:[id number] Flagyl Premix 500 MG/100 ML 500 100 / 300 100 / 100 mg In 100 ml @ 100 mls/hr IVPB Q8H [facility] Rx#:[id number] Oral 400 / 520 200 / 200 Output: Urine 0 / 0 Wound Drainage 180 / 415 220 / 240 20 / 240 ABDOMEN 180 / 415 220 / 240 20 / 240 Other: # Voids 1 1 Blood Glucose* 146 163 - Labs 12/25/18 04:55 12/25/18 04:55 Diabetes panel 12/25/18 Range/Units 04:55 Sodium 132 L (136-145) mEq/L Potassium 4.2 (3.5-5.1) mEq/L Chloride 99 (98-107) mEq/L Carbon Dioxide 25 (23-29) mEq/L BUN 39 H (8-23) mg/dL Creatinine 1.19 (0.60-1.20) mg/dL Glucose 144 H (70-105) mg/dL Calcium 9.4 (8.6-10.3) mg/dL Calcium panel 12/25/18 Range/Units 04:55 Calcium 9.4 (8.6-10.3) mg/dL Phosphorus 4.1 (2.7-4.5) mg/dL Pituitary panel 12/25/18 Range/Units 04:55 Sodium 132 L (136-145) mEq/L Potassium 4.2 (3.5-5.1) mEq/L Chloride 99 (98-107) mEq/L Carbon Dioxide 25 (23-29) mEq/L BUN 39 H (8-23) mg/dL Creatinine 1.19 (0.60-1.20) mg/dL Glucose 144 H (70-105) mg/dL Calcium 9.4 (8.6-10.3) mg/dL Adrenal panel 12/25/18 Range/Units 04:55 Sodium 132 L (136-145) mEq/L Potassium 4.2 (3.5-5.1) mEq/L Chloride 99 (98-107) mEq/L Carbon Dioxide 25 (23-29) mEq/L BUN 39 H (8-23) mg/dL Creatinine 1.19 (0.60-1.20) mg/dL Glucose 144 H (70-105) mg/dL Calcium 9.4 (8.6-10.3) mg/dL Consult Discharge Plan - Plan Referrals: Sy Beaver DO [Primary Care Provider] -
[2018-12-26] MEDS: Furosemide 20 MG TABLET PO SCH ×2 (00:29→08:16)
[2018-12-26] MEDS: MetroNIDAZOLE 500 MG/100 ML 500 MG/100 ML BAG IVPB SCH ×2 (00:58→08:11)
[2018-12-26] MEDS: Pantoprazole 40 MG VIAL IVP SCH (05:43)
[2018-12-26 06:32] LABS: Basophils % 0.3 %; Eosinophils # 0.1 K/mcL (0.0-0.6); Eosinophils % 2.1 %; Hematocrit 29.6 % (35.3-44.9); Hemoglobin 9.8 g/dL (11.5-15.4); Immature Granulocytes % 2.7 % (0-4); Lymphocytes # 0.7 K/mcL (0.6-4.6); Lymphocytes % 10.9 %; Mean Corpuscular HGB Conc 33.1 g/dL (31.6-35.5); Mean Corpuscular Hemoglobin 29.3 pg (28.0-33.3); Mean Corpuscular Volume 88.4 fL (83.0-100.0); Mean Platelet Volume 11.1 fL (9.4-12.4); Monocytes # 0.6 K/mcL (0.0-1.3); Monocytes % 8.9 %; Platelet Count 74 K/mcL (140-400); Red Blood Count 3.35 M/mcL (3.82-4.97); Red Cell Distribution Width 15.6 % (11.5-14.5); Segmented Neutrophils % 75.1 %; White Blood Count 6.6 K/mcL (4.3-11.1)
[2018-12-26 06:42] LABS: Calcium 9.2 mg/dL (8.6-10.3); Magnesium 1.7 mg/dL (1.6-2.6); Phosphorous 3.7 mg/dL (2.7-4.5); Potassium 4.5 mEq/L (3.5-5.1)
[2018-12-26] MEDS: Fluconazole 200 MG/100 ML 200 MG/100 ML BAG IVPB SCH (08:10)
[2018-12-26] MEDS: Cefepime HCl 1,000 MG in Water for inj. (sterile) 10 ML IVP SCH (08:12)
[2018-12-26] MEDS: Lactobacillus 1 EACH CAP.SPRINK PO SCH (08:14)
[2018-12-26] MEDS: Sucralfate 1 GM TABLET PO SCH ×2 (08:15→12:41)
[2018-12-26] MEDS ORDERED: 0.9 % Sodium Chloride 1,000 ML IVC ONE (08:36)
--- NOTE | 2018-12-26 08:36 | Internal Med Progress Note ---
Hospitalist Progress Note - Encounter Date of Encounter: 12/26/18 Time of Encounter: 08:36 - Subjective Interval History: No acute events overnight - Exam Vitals: Temp Pulse Resp BP Pulse Ox 98.5 F 115 16 94/61 95 12/26/18 06:47 12/26/18 06:47 12/26/18 06:47 12/26/18 06:47 12/26/18 06:47 Exam: General appearance: no acute distress, alert and oriented to person and place Eyes: nonicteric ENT: oropharynx moist Neck: supple, no lymphadenopathy Effort: normal Auscultation: bilateral: clear Cardiovascular: irregular rhythm Gastrointestinal: normoactive bowel sounds, soft, tender (surgical incision on the left side of the abd covered by a wound dressing without warmth or erythema in the surrounding area. Drain placed on the Right side of the abd with minimal output) Integumentary: normal Extremities: no cyanosis, no edema Musculoskeletal: no deformities non-focal exam (A&Ox2), pupils equal and round mood appropriate, affect normal - Assessment and Plan (1) Septic shock Current Visit: Yes Status: Resolved Assessment and Plan: Likely 2/2 to perforated viscus with bacterial peritonitis. Transferred out of the ICU on 12/22 Weaned off pressors. continue cefepime, flagyl and fluconazole per surgery Improved and clinically stable. PT and OT to assess (2) Perforated abdominal viscus Current Visit: Yes Status: Resolved Assessment and Plan: POD #5 s/p exploratory laparotomy for perforated viscus. Stable Tolerating diet. Recommend d/c actonel on discharge and follow up with PCP due to perforated ulcer (3) Atrial fibrillation with RVR Current Visit: Yes Status: Chronic Assessment and Plan: Patient went into afib in ICU and was started on a cardizem drip Currently rate controlled on beta blockers. [id number] score >3. Will not recommend anticoagulation due to history of bleeding gastric ulcers (4) Bacterial peritonitis Current Visit: Yes Status: Acute Assessment and Plan: Continue antibiotics per surgery (5) Cirrhosis Current Visit: Yes Status: Acute Assessment and Plan: Stable (6) DVT prophylaxis Current Visit: Yes Status: Acute Assessment and Plan: SCDs - Time Spent with Patient Total time spent is greater than 50% in coordination of care (as documented) at patient's floor/unit and/or counseling patient: Internal Medicine: Result - Labs CBC & Chem 7: 12/26/18 05:35 12/26/18 05:35 Labs: Short CBC 12/26/18 Range/Units 05:35 WBC 6.6 (4.3-11.1) K/mcL Hgb 9.8 L (11.5-15.4) g/dL Hct 29.6 L (35.3-44.9) % Plt Count 74 L (140-400) K/mcL Neutrophils # 5.0 (1.6-8.9) K/mcL BMP 12/26/18 05:35 Sodium 131 L Potassium 4.5 Chloride 100 Carbon Dioxide 25 BUN 36 H Creatinine 1.07 Glucose 157 H Calcium 9.2 - ABG Interpretation ABG results: PT/INR, D-dimer PT 18.9 Seconds (9.4-12.1) H 12/21/18 08:43 Consult Discharge Plan - Plan Instructions: Jefferson-Akers Drain Care (DC), Exploratory Laparotomy (DC) Additional Instructions: General Surgical Discharge Instructions 1. No pushing, pulling, or lifting greater than 15 lbs for 6 weeks. 2. You may remove your dressings and shower beginning today, but no tub baths, soaking, or swimming for 2 weeks. 3. No driving until cleared by rehab (if applicable). 4. Take 650 mg acetaminophen every 6 hours and apply ice pack 20 minutes of every hour you are awake for discomfort. If this does not relieve discomfort, you may take the as needed Percocet. Eat a small snack with pain medication as this will help reduce the risk of nausea. Take narcotics as directed. Do not take more narcotics then directed and do not share your narcotics with any other person. Do not drink alcohol while on narcotics. You can take the Zofran/ondansetron if needed for nausea or with a dose of narcotics to prevent nausea. 5. Take stool softeners (Colace) or a water based laxative (Miralax) while taking narcotics. You may hold for loose stools. 6. Report any fevers greater than 100.5F, increase abdominal discomfort, drainage that looks like pus, increased redness or pain at the surgical site, or any vomiting. 7. Report any pain in the calves, shortness of breath, or rapid heartbeat. 8. Follow-up in the office as directed. 9. If you were prescribed antibiotics, do not stop them without talking to your provider. STOP ACTONEL NO ANTICOAGULATION OR NSAIDS GOING FORWARD FOLLOW-UP WITH PCP AND DEVELOPMENT EXECUTIVE IN 1-2 WEEKS TO DISCUSS TREATMENT OPTIONS RELATED Daily CASEY Drain Care: 1. Remove dressings. Shower with antibacterial soap. 2. Do not let the CASEY drain dangle from your body. Use the safety pin to secure to your clothing. Secure the CASEY to a lanyard or other type of long necklace when you shower. 3. Replace drain gauze and taped to secure. 4. Record the output from your CASEY bulb (at least once daily) on the form prov ided and bring this with you to your follow-up appointment. 5. Keep the CASEY drain to suction (squeeze the bulb and replace the cap while squeezing). 6. Strip the lines twice daily (hold onto the line as close to the body as you can, then with the other hand push the contents of the line into the CASEY bulb). Referrals: Twin Walters MD [Partnered Physician] - 01/02/19 9:30 am Sy Beaver DO [Primary Care Provider] - oZnia Mahoney MD [Non-Partnered Physician] - (5) Cirrhosis Qualifiers: Hepatic cirrhosis type: alcoholic cirrhosis Ascites presence: without ascites Qualified Code(s): K70.30 - Alcoholic cirrhosis of liver without ascites
[2018-12-26] MEDS: Insulin LISPRO 300 UNITS/3 ML VIAL SQ SCH ×2 (08:46→12:43)
--- NOTE | 2018-12-26 09:48 | AcuteCareSurgery Progress Note ---
<Gloria Szymanski - Last Filed: 12/26/18 10:17> Date of Encounter: 12/26/18 Time of Encounter: 07:15 - Assessment and Plan (1) Perforated abdominal viscus Current Visit: Yes Status: Acute Date of procedure: 12/20/18 Pre-op diagnosis: acute abdomen with perforated abdominal viscus Post-op diagnosis: same (perforated pyloric ulcer) Procedure: 1) Exploratory laparotomy with 2) Repair of perforated pyloric ulcer with Mamadou patch 3) Right Subclavian Vein Central Venoue Line Insertion Complications: none Anesthesia: GETA Surgeon: Melissa Bingham POD #6 as above. She is recovering as expected. She is tolerating po and having bowel function. Her PICOT dressing will be removed today (abdominal incision can be left open to air or covered with a dry dressing). She continues to have increased output in CASEY. She is ok to d/c from a surgical standpoint and is strongly recommended to go to in-patient rehab. Dispo per primary team. Surgical instructions and d/c info has been placed in the d/c plan. Recommended to avoid NSAIDs going forward. Plan: Continue CASEY care Continue supportive care and discomfort management Surgery will follow from a distance at this time. Please call or reconsult if further questions or needs arise. Subjective Patient reports: no new complaints, pain is less, tolerating a regular diet, voiding w/o difficulty, flatus, bowel movement Objective Vital Signs - Last 8 Hours Temp Pulse Resp BP Pulse Ox 12/26/18 06:47 98.5 F 115 16 94/61 95 12/26/18 05:00 98.7 F 109 15 98/61 96 Intake and Output 12/25/18 12/26/18 12/26/18 23:59 07:59 15:59 Intake Total 240 / 1110 210 / 210 Output Total 315 / 615 185 / 185 Balance -75 / 495 25 / 25 Intake: IV Fluids 210 / 210 Maxipime 1,000 MG In Water for 10 10 inj. (sterile) 10 ML @ 300 mls/ hr IVP Q12H KALIN Rx#:[id number] Flagyl Premix 500 MG/100 ML 500 200 / 200 mg In 100 ml @ 100 mls/hr IVPB Q8H KALIN Rx#:[id number] Oral 240 / 800 0 / 0 Output: Urine 0 / 0 Wound Drainage 315 / 615 185 / 185 ABDOMEN 315 / 615 185 / 185 Other: Meal Dinner Percent of Meal Consumed 50% # Voids 1 1 Weight 65.8 kg Blood Glucose* 221 154 Patient Weight 12/26/18 23:59 Weight 65.8 kg - Labs 12/26/18 05:35 12/26/18 05:35 Diabetes panel 12/26/18 Range/Units 05:35 Sodium 131 L (136-145) mEq/L Potassium 4.5 (3.5-5.1) mEq/L Chloride 100 (98-107) mEq/L Carbon Dioxide 25 (23-29) mEq/L BUN 36 H (8-23) mg/dL Creatinine 1.07 (0.60-1.20) mg/dL Glucose 157 H (70-105) mg/dL Calcium 9.2 (8.6-10.3) mg/dL Calcium panel 12/26/18 Range/Units 05:35 Calcium 9.2 (8.6-10.3) mg/dL Phosphorus 3.7 (2.7-4.5) mg/dL Pituitary panel 12/26/18 Range/Units 05:35 Sodium 131 L (136-145) mEq/L Potassium 4.5 (3.5-5.1) mEq/L Chloride 100 (98-107) mEq/L Carbon Dioxide 25 (23-29) mEq/L BUN 36 H (8-23) mg/dL Creatinine 1.07 (0.60-1.20) mg/dL Glucose 157 H (70-105) mg/dL Calcium 9.2 (8.6-10.3) mg/dL Adrenal panel 12/26/18 Range/Units 05:35 Sodium 131 L (136-145) mEq/L Potassium 4.5 (3.5-5.1) mEq/L Chloride 100 (98-107) mEq/L Carbon Dioxide 25 (23-29) mEq/L BUN 36 H (8-23) mg/dL Creatinine 1.07 (0.60-1.20) mg/dL Glucose 157 H (70-105) mg/dL Calcium 9.2 (8.6-10.3) mg/dL Consult Discharge Plan - Plan Instructions: [place]-Akers Drain Care (DC), Exploratory Laparotomy (DC) Additional Instructions: General Surgical Discharge Instructions 1. No pushing, pulling, or lifting greater than 15 lbs for 6 weeks. 2. You may remove your dressings and shower beginning today, but no tub baths, soaking, or swimming for 2 weeks. 3. No driving until cleared by rehab (if applicable). 4. Take 650 mg acetaminophen every 6 hours and apply ice pack 20 minutes of every hour you are awake for discomfort. If this does not relieve discomfort, you may take the as needed Percocet. Eat a small snack with pain medication as this will help reduce the risk of nausea. Take narcotics as directed. Do not take more narcotics then directed and do not share your narcotics with any other person. Do not drink alcohol while on narcotics. You can take the Zofran/ondansetron if needed for nausea or with a dose of narcotics to prevent nausea. 5. Take stool softeners (Colace) or a water based laxative (Miralax) while taking narcotics. You may hold for loose stools. 6. Report any fevers greater than 100.5F, increase abdominal discomfort, drainage that looks like pus, increased redness or pain at the surgical site, or any vomiting. 7. Report any pain in the calves, shortness of breath, or rapid heartbeat. 8. Follow-up in the office as directed. 9. If you were prescribed antibiotics, do not stop them without talking to your provider. Referrals: Sy Beaver DO [Primary Care Provider] - Twin Walters MD [Partnered Physician] - 01/02/19 9:30 am <Twin Walters - Last Filed: 12/26/18 11:29> Date of Encounter: 12/26/18 - Assessment and Plan (1) Perforated ulcer Current Visit: Yes Status: Acute Objective Vital Signs - Last 8 Hours Temp Pulse Resp BP Pulse Ox 12/26/18 11:06 98.4 F 68 20 90/54 98 12/26/18 06:47 98.5 F 115 16 94/61 95 12/26/18 05:00 98.7 F 109 15 98/61 96 Intake and Output 12/25/18 12/26/18 12/26/18 23:59 07:59 15:59 Intake Total 240 / 1110 210 / 1210 1000 / 1210 Output Total 315 / 615 185 / 295 110 / 295 Balance -75 / 495 25 / 915 890 / 915 Intake: IV Fluids 210 / 1210 1000 / 1210 0.9 % Sodium Chloride 1,000 ML 1000 / 1000 @ 999 mls/hr IVC .Q1H1M ONE Rx# :[id number] Maxipime 1,000 MG In Water for 10 inj. (sterile) 10 ML @ 300 mls/ hr IVP Q12H KALIN Rx#:[id number] Flagyl Premix 500 MG/100 ML 500 200 / 200 mg In 100 ml @ 100 mls/hr IVPB Q8H KALIN Rx#:[id number] Oral 240 / 800 0 / 0 Output: Urine 0 / 0 Wound Drainage 315 / 615 185 / 295 110 / 295 ABDOMEN 315 / 615 185 / 295 110 / 295 Other: Meal Dinner Percent of Meal Consumed 50% # Voids 1 1 Weight 65.8 kg Blood Glucose* 221 154 210 Patient Weight 12/26/18 23:59 Weight 65.8 kg - Labs 12/26/18 05:35 12/26/18 05:35 Diabetes panel 12/26/18 Range/Units 05:35 Sodium 131 L (136-145) mEq/L Potassium 4.5 (3.5-5.1) mEq/L Chloride 100 (98-107) mEq/L Carbon Dioxide 25 (23-29) mEq/L BUN 36 H (8-23) mg/dL Creatinine 1.07 (0.60-1.20) mg/dL Glucose 157 H (70-105) mg/dL Calcium 9.2 (8.6-10.3) mg/dL Calcium panel 12/26/18 Range/Units 05:35 Calcium 9.2 (8.6-10.3) mg/dL Phosphorus 3.7 (2.7-4.5) mg/dL Pituitary panel 12/26/18 Range/Units 05:35 Sodium 131 L (136-145) mEq/L Potassium 4.5 (3.5-5.1) mEq/L Chloride 100 (98-107) mEq/L Carbon Dioxide 25 (23-29) mEq/L BUN 36 H (8-23) mg/dL Creatinine 1.07 (0.60-1.20) mg/dL Glucose 157 H (70-105) mg/dL Calcium 9.2 (8.6-10.3) mg/dL Adrenal panel 12/26/18 Range/Units 05:35 Sodium 131 L (136-145) mEq/L Potassium 4.5 (3.5-5.1) mEq/L Chloride 100 (98-107) mEq/L Carbon Dioxide 25 (23-29) mEq/L BUN 36 H (8-23) mg/dL Creatinine 1.07 (0.60-1.20) mg/dL Glucose 157 H (70-105) mg/dL Calcium 9.2 (8.6-10.3) mg/dL - Attending Attestation I have personally performed a face to face evaluation on this patient. I have reviewed and agree with the care plan. History and Exam by me shows: The patient is seen and evaluated on morning rounds with the acute care surgery team. She has had successful treatment of perforated duodenal ulcer. She is ready for rehabilitation placement Twin Walters MD FACS
[2018-12-26] MEDS ORDERED: Acetaminophen 325 MG TABLET PO PRN (11:46)
--- NOTE | 2018-12-26 12:33 | Discharge Summary ---
- NOTES TO OUTPATIENT PROVIDER Notes to Outpatient Provider: PCP: Actonel stopped 2/2 to perforated ulcer. Will need follow-up with PCP for recommendations regarding treatment for osteoporosis. Date of Encounter: 12/26/18 Time of Encounter: 12:30 - Discharge Diagnosis (1) Perforated abdominal viscus Priority: Primary Status: Resolved (2) Sepsis Priority: Secondary Status: Resolved Qualifiers: Sepsis type: sepsis due to unspecified organism Sepsis acute organ dysfunction status: with acute organ dysfunction Severe sepsis acute organ dysfunction type: encephalopathy Severe sepsis shock status: with septic shock Qualified Code(s): A41.9 - Sepsis, unspecified organism; R65.21 - Severe sepsis with septic shock; G93.40 - Encephalopathy, unspecified (3) Osteoporosis Priority: Secondary Status: Chronic Comments: Stop Actonel Qualifiers: Osteoporosis type: unspecified Presence of current pathological fracture: unspecified Qualified Code(s): M81.0 - Age-related osteoporosis without current pathological fracture (4) Acute metabolic encephalopathy Priority: Secondary Status: Suspected (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 [id number] score >3. Will not recommend anticoagulation due to history of bleeding gastric ulcers Avoid anticoagulation given risk of perforated viscus and hx of bleeding ulcers Recommend f/u with her back end developer for consideration of Watchman General Surgery Exam See progress note for full exam - Hospital Course Hospital course: Ms. Nieto is a 78 year old female Amira is a 78-year-old female who presented on 12/20/2018 with acute abdomen with perforated abdominal viscous (perforated pyloric ulcer). She was taken to the operating room on an emergent basis where she underwent exploratory laparotomy with repair of pyloric ulcer with Mamadou patch and a right subclavian vein central venous line insertion by Dr. Mott. She was admitted to the intensive care unit postoperatively where she was managed by the lgsw including: acute metabolic encephalopathy 2/2 to sepsis which has resolved, a fib with RVR which was treated with Cardizem drip and later managed with beta blockers, pressors were weaned and she was transferred out of the ICU on 12/22/2018. The remainder of her hospital course has been uncomplicated. She is noted to have generalized deconditioning on top of her are ready frail state. She is recommended inpatient rehab at discharge and she is agreeable. Of note [id number] score >3 however anticoagulation is contraindicated given her recent perforated ulcer. She is also recommended to stop her osteoporosis treatment Actonel as this is highly corrosive. We will begin discharge planning to [facility] with a follow-up in the office in approximately 2 weeks. She will be discharged with her CASEY drain in place. - Time Spent with Patient Total time spent providing and/or coordinating discharge services: Less than 30 minutes - Discharge Medications Prescriptions: New Acetaminophen [Tylenol] 650 mg PO Q6HR PRN tablet PRN Reason: Fever/mild pain Omeprazole [PriLOSEC] 20 mg PO BIDAC capsule.dr Coello Sucralfate [Carafate] 1 gm PO QIDAC Amitriptyline [Elavil] 40 mg PO HS Escitalopram [Lexapro] 20 mg PO DAILY Simvastatin [Zocor] 20 mg PO HS Oxycodone HCl/Acetaminophen [Percocet 10-325 mg Tablet] 1 tab PO Q8H PRN PRN Reason: Pain Furosemide [Lasix] 20 mg PO BID #60 tablet Donepezil HCl [Aricept] 10 mg PO DAILY Potassium Chloride [K-Tab ER] 10 meq PO BID Metoprolol [Lopressor] 25 mg PO BID Discontinued Risedronate Sodium [Actonel] 35 mg PO QWEEK Amoxicillin [Amoxil] 500 mg PO Q8HR #15 capsule Lactobacillus Acidophilus [Acidophilus Probiotic] 1 mg PO BID #10 tablet Home Medications: Amitriptyline [Elavil] 40 mg PO HS 07/04/16 [History] Escitalopram [Lexapro] 20 mg PO DAILY 07/04/16 [History] Oxycodone HCl/Acetaminophen [Percocet 10-325 mg Tablet] 1 tab PO Q8H PRN 07/04/16 [History] Simvastatin [Zocor] 20 mg PO HS 07/04/16 [History] Sucralfate [Carafate] 1 gm PO QIDAC 07/04/16 [History] Furosemide [Lasix] 20 mg PO BID #60 tablet 11/16/17 [Rx] Donepezil HCl [Aricept] 10 mg PO DAILY 01/23/18 [History] Potassium Chloride [K-Tab ER] 10 meq PO BID 07/11/18 [History] Metoprolol [Lopressor] 25 mg PO BID 12/19/18 [History] Acetaminophen [Tylenol] 650 mg PO Q6HR PRN tablet 12/26/18 [Rx] Omeprazole [PriLOSEC] 20 mg PO BIDAC capsule. 12/26/18 [Rx] Allergies/Adverse Reactions: Allergy/AdvReac Type Severity Reaction Status Date / Time haloperidol Allergy Hallucinati Verified 12/20/18 14:21 ng Date of admission: 12/20/18 03:49 Primary care physician: Brayan Beaver DO Consults: 12/20/18 06:52 Consult to Hospitalist [CONS] Stat Consulting Provider: Hospitalist Faby Reason for Consult: routine ICU medical care. Case s/w resident for Dr. Uribe Call Completed: Yes 12/20/18 07:52 Consult to Pulmonology [CONS] Routine Consulting Provider: Pulm Crit Care & Sleep Bekah Reason for Consult: hypotension and lactic acidosis on pressors Call Completed: Yes 12/20/18 10:27 Consult to Palliative Care [CONS] Routine Comment: Consulting Provider: Palliative Care Bekah Reason for Consult: Worsening hepatic function with septic shock after bowel surgery Call Completed: Yes 12/23/18 10:17 Consult to Occupational Therapy [CONS] Routine Comment: Evaluate, develop and implement POC Reason for Consult: post-op evaluation Does patient have active BEDREST order?: No Is patient medically & hemodynamically stable?: Yes Patient assessed for mobility or mobilized this visit?: No Consult to Physical Therapy [CONS] Routine Comment: Evaluate, develop and implement POC Reason for Consult: post-op evaluation Does patient have active BEDREST order?: No Is patient medically & hemodynamically stable?: Yes Patient assessed for mobility or mobilized this visit?: No 12/24/18 10:23 Consult to Case Management [CONS] Stat Comment: DC planning to ECF 12/25/18 08:06 Consult to Track Watchman [CONS] Routine Reason for SW Consult: snf Discharging clinician: Twin Szymanski, NAT) Anticipated date of discharge: 12/26/18 Labs on day of discharge: Labs from last 24 hours 12/26/18 12/26/18 12/26/18 11:09 05:35 05:35 WBC 6.6 RBC 3.35 L Hgb 9.8 L Hct 29.6 L MCV 88.4 MCH 29.3 MCHC 33.1 RDW 15.6 H Plt Count 74 L MPV 11.1 Immature Gran % 2.7 Seg Neutrophils % 75.1 Lymphocytes % 10.9 Monocytes % 8.9 Eosinophils % 2.1 Basophils % 0.3 Neutrophils # 5.0 Lymphocytes # 0.7 Monocytes # 0.6 Eosinophils # 0.1 Basophils # 0.0 Immature Plt Fraction 5.0 Sodium 131 L Potassium 4.5 Chloride 100 Carbon Dioxide 25 BUN 36 H Creatinine 1.07 Est GFR ( Amer) 60 Est GFR (Non-Af Amer) 49 L BUN/Creatinine Ratio 34 H Glucose 157 H POC Glucose 210 H Calculated Osmolality 284 Calcium 9.2 Phosphorus 3.7 Magnesium 1.7 12/25/18 12/24/18 12/24/18 20:32 20:16 16:49 WBC RBC Hgb Hct MCV MCH MCHC RDW Plt Count MPV Immature Gran % Seg Neutrophils % Lymphocytes % Monocytes % Eosinophils % Basophils % Neutrophils # Lymphocytes # Monocytes # Eosinophils # Basophils # Immature Plt Fraction Sodium Potassium Chloride Carbon Dioxide BUN Creatinine Est GFR ( Amer) Est GFR (Non-Af Amer) BUN/Creatinine Ratio Glucose POC Glucose 221 H 146 H 165 H Calculated Osmolality Calcium Phosphorus Magnesium 12/24/18 12/24/18 13:27 09:47 WBC RBC Hgb Hct MCV MCH MCHC RDW Plt Count MPV Immature Gran % Seg Neutrophils % Lymphocytes % Monocytes % Eosinophils % Basophils % Neutrophils # Lymphocytes # Monocytes # Eosinophils # Basophils # Immature Plt Fraction Sodium Potassium Chloride Carbon Dioxide BUN Creatinine Est GFR ( Amer) Est GFR (Non-Af Amer) BUN/Creatinine Ratio Glucose POC Glucose 188 H 176 H Calculated Osmolality Calcium Phosphorus Magnesium - Impressions ITS Impressions Chest X-Ray 12/19/18 21:19 IMPRESSION: No acute abnormality identified. D/ / Robbin Hair MD / Robbin Hair MD Interpreting Provider: Robbin Hair MD Abdomen/Pelvis CT 12/20/18 00:09 IMPRESSION: Perforated duodenal ulcer with small volume pneumoperitoneum. Suspected mucosal defect measures approximately 1 cm in size. Oral contrast exam could further characterize if clinically necessary. 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 Additional chronic findings are unchanged over the short interval. Critical results were called by Dr. Brayan Fang to Dr. Carranza on 12/20/2018 at 02:22. D/ / Brayan Fang / Brayan Fang Interpreting Provider: Brayan Fang Chest X-Ray 12/20/18 06:11 IMPRESSION: 1. New right subclavian central line terminates in the mid to lower superior vena cava. No associated pneumothorax. 2. New gastric tube in appropriate position as above. 3. No acute cardiopulmonary process. D/ / Waqar Najera MD / Waqar Najera MD Interpreting Provider: Waqar Najera MD - Patient Status Disposition: Transfer SNF Condition: Serious Functional capacity at discharge: wheelchair bound Overall status at discharge: patient is not back to baseline - Discharge Instructions Instructions: [place] Drain Care (DC), Exploratory Laparotomy (DC) Follow Up With: Twin Walters MD [Partnered Physician] - 01/02/19 9:30 am Sy Beaver DO [Primary Care Provider] - Zonia Mahoney MD [Non-Partnered Physician] - Additional Instructions: General Surgical Discharge Instructions 1. No pushing, pulling, or lifting greater than 15 lbs for 6 weeks. 2. You may remove your dressings and shower beginning today, but no tub baths, soaking, or swimming for 2 weeks. 3. No driving until cleared by rehab (if applicable). 4. Take 650 mg acetaminophen every 6 hours and apply ice pack 20 minutes of every hour you are awake for discomfort. If this does not relieve discomfort, you may take the as needed Percocet. Eat a small snack with pain medication as this will help reduce the risk of nausea. Take narcotics as directed. Do not take more narcotics then directed and do not share your narcotics with any other person. Do not drink alcohol while on narcotics. You can take the Zofran/ondansetron if needed for nausea or with a dose of narcotics to prevent nausea. 5. Take stool softeners (Colace) or a water based laxative (Miralax) while taking narcotics. You may hold for loose stools. 6. Report any fevers greater than 100.5F, increase abdominal discomfort, dr martinez that looks like pus, increased redness or pain at the surgical site, or any vomiting. 7. Report any pain in the calves, shortness of breath, or rapid heartbeat. 8. Follow-up in the office as directed. 9. If you were prescribed antibiotics, do not stop them without talking to your provider. STOP ACTONEL NO ANTICOAGULATION OR NSAIDS GOING FORWARD FOLLOW-UP WITH PCP AND PIERCER OPERATOR IN 1-2 WEEKS TO DISCUSS TREATMENT OPTIONS RELATED Daily CASEY Drain Care: 1. Remove dressings. Shower with antibacterial soap. 2. Do not let the CASEY drain dangle from your body. Use the safety pin to secure to your clothing. Secure the CASEY to a lanyard or other type of long necklace when you shower. 3. Replace drain gauze and taped to secure. 4. Record the output from your CASEY bulb (at least once daily) on the form provided and bring this with you to your follow-up appointment. 5. Keep the CASEY drain to suction (squeeze the bulb and replace the cap while squeezing). 6. Strip the lines twice daily (hold onto the line as close to the body as you can, then with the other hand push the contents of the line into the CASEY bulb). - Diet and Activity Activity: as per physical therapy Diet: advance to your usual diet
--- NOTE | 2018-12-26 12:44 | Physician Discharge Referral ---
ExtendedCare Referral Info Transfer To: [facility] Provider in Charge: Dr. 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 (6) Septic shock Priority: Secondary Status: Resolved (7) Atrial fibrillation with RVR Priority: Secondary Status: Chronic Prognosis: Fair Aware of Diagnosis: Patient Aware of Prognosis: Patient - Transfer Medications Home Medications: Amitriptyline [Elavil] 40 mg PO HS 07/04/16 [History] Escitalopram [Lexapro] 20 mg PO DAILY 07/04/16 [History] Oxycodone HCl/Acetaminophen [Percocet 10-325 mg Tablet] 1 tab PO Q8H PRN 07/04/16 [History] Simvastatin [Zocor] 20 mg PO HS 07/04/16 [History] Sucralfate [Carafate] 1 gm PO QIDAC 07/04/16 [History] Furosemide [Lasix] 20 mg PO BID #60 tablet 11/16/17 [Rx] Donepezil HCl [Aricept] 10 mg PO DAILY 01/23/18 [History] Potassium Chloride [K-Tab ER] 10 meq PO BID 07/11/18 [History] Metoprolol [Lopressor] 25 mg PO BID 12/19/18 [History] Acetaminophen [Tylenol] 650 mg PO Q6HR PRN tablet 12/26/18 [Rx] Omeprazole [PriLOSEC] 20 mg PO BIDAC capsule. 12/26/18 [Rx] Allergies/Adverse Reactions: Allergy/AdvReac Type Severity Reaction Status Date / Time haloperidol Allergy Hallucinati Verified 12/20/18 14:21 ng - Respiratory Orders Smoking Cessation: Smoking cessation has been advised. For more information, call the [place] Tobacco Quit Line at 1-503-QJQX-NOW. - Ancillary Orders May use pressure relief devices daily prn, May consult with Dentist, Printer Assistant, Cyber Security Architect PRN - Advance Directives Living Will: No Power of Navy Fighter Pilot for Health Care: No Code Status: Full Code - Mobility Orders Ambulate - Rehabiliation Orders Rehab Potential: Fair Rehab Orders: Evaluation for Physical Therapy, Evaluation for Occupational Therapy, Evaluation for Speech Therapy Other: General Surgical Discharge Instructions 1. No pushing, pulling, or lifting greater than 15 lbs for 6 weeks. 2. You may remove your dressings and shower beginning today, but no tub baths, soaking, or swimming for 2 weeks. 3. No driving until cleared by rehab (if applicable). 4. Take 650 mg acetaminophen every 6 hours and apply ice pack 20 minutes of every hour you are awake for discomfort. If this does not relieve discomfort, you may take the as needed Percocet. Eat a small snack with pain medication as this will help reduce the risk of nausea. Take narcotics as directed. Do not take more narcotics then directed and do not share your narcotics with any other person. Do not drink alcohol while on narcotics. You can take the Zofran/ondansetron if needed for nausea or with a dose of narcotics to prevent nausea. 5. Take stool softeners (Colace) or a water based laxative (Miralax) while taking narcotics. You may hold for loose stools. 6. Report any fevers greater than 100.5F, increase abdominal discomfort, drainage that looks like pus, increased redness or pain at the surgical site, or any vomiting. 7. Report any pain in the calves, shortness of breath, or rapid heartbeat. 8. Follow-up in the office as directed. 9. If you were prescribed antibiotics, do not stop them without talking to your provider. STOP ACTONEL NO ANTICOAGULATION OR NSAIDS GOING FORWARD FOLLOW-UP WITH PCP AND SPIRITUAL CARE COORDINATOR IN 1-2 WEEKS TO DISCUSS TREATMENT OPTIONS RELATED - Treatments Skin tear care topically daily PRN per policy - Diet Orders Mechanical Soft House Supplement per Dietary: Ensure or Boost TID CERTIFICATION: I certify that the transfer of the above named patient to an Extended Care Facility is necessary for the continuing treatment of the diagnosis listed. The above information is true and accurate reflection of patient's current condition. Confidential - Redisclosure prohibited without a patient's written consent.
--- NOTE | 2018-12-26 14:04 | Electrocardiograph Report ---
[place] [id number] Test Date: 2018-12-25 Pat Name: Amira Nieto Department: 115 Room: 3A Gender: F Mental Retardation Nurse: SAE : [id number] Requested By: Lui Garsia Order Number: [id number] Reading MD: Zonia Mahoney Measurements Intervals [place] Rate: 92 P: 49 [place]: 166 QRS: -28 QRSD: 161 T: 109 QT: 395 QTc: 444 Interpretive Statements SINUS RHYTHM LEFT BUNDLE BRANCH BLOCK Electronically Signed On 12-26-2018 14:03:17 EDT by Zonia Mahoney
[2018-12-26 15:39] VITALS: BP 89/56
[2018-12-26] MEDS ORDERED: Furosemide 20 MG TABLET PO SCH (17:00)
--- NOTE | 2018-12-29 08:40 | Electrocardiograph Report ---
[place] [id number] Test Date: 2018-12-23 Pat Name: Amira Nieto Department: 110 Room: 3A31 Gender: F [employer] Employee: [employer] : 1940 Requested By: Lenny Prajapati Order Number: [id number] Reading MD: Fredy Abad Measurements Intervals [place] Rate: 63 P: 66 [place]: 162 QRS: -23 QRSD: 169 T: 69 QT: 522 QTc: 529 Interpretive Statements SINUS RHYTHM LEFT BUNDLE BRANCH BLOCK [120+ ms QRS DURATION, 80+ ms Q/S IN V1/V2, 85+ ms R IN I/aVL/V5/V6] Electronically Signed On 12-29-2018 8:39:13 EDT by Fredy Abad
== END 2018-12-26 17:35 | DRG 853 ==
LOC: EMEROOARM 20:28 → ICNU 20:28 → SUATTDRO 12-20 03:49 → OBSVTOIN 12-20 03:49 → ICNU 12-20 04:20 → 2NNU 12-22 14:24 → 3ANU 12-23 23:11
PROVIDERS: ADMIT Surgery; ATTEND Student in an Organized Health Care Education/Training Program

== ENCOUNTER 2019-01-13 13:38 | Inpatient (IN) ==
--- NOTE | 2019-01-13 14:15 | Emergency Department Note ---
Disposition Clinical Impression: Upper GI bleed Disposition: Admitted As Inpatient Condition: Fair Time of Disposition: 17:45 General Adult HPI - General Chief complaint: ED GI Bleed Stated complaint: GI Bleed Time Seen by Provider: 01/13/19 13:42 Source: patient Nursing Notes Reviewed: Yes Vital Signs Reviewed: Yes - History of Present Illness Pain Scale: 0 - Related Data Home Medications Medication Instructions Recorded Confirmed Amitriptyline [Elavil] 40 mg PO HS 07/04/16 01/13/19 Escitalopram [Lexapro] 20 mg PO DAILY 07/04/16 01/13/19 Oxycodone HCl/Acetaminophen 1 tab PO Q8H PRN 07/04/16 01/13/19 [Percocet 10-325 mg Tablet] Simvastatin [Zocor] 20 mg PO HS 07/04/16 01/13/19 Sucralfate [Carafate] 1 gm PO QIDAC 07/04/16 01/13/19 Donepezil HCl [Aricept] 10 mg PO DAILY 01/23/18 01/13/19 Potassium Chloride [K-Tab ER] 10 meq PO BID 07/11/18 01/13/19 Metoprolol [Lopressor] 25 mg PO BID 12/19/18 01/13/19 Previous Rx's Medication Instructions Recorded Furosemide [Lasix] 20 mg PO BID #60 tablet 11/16/17 Acetaminophen [Tylenol] 650 mg PO Q6HR PRN tablet 12/26/18 Omeprazole [PriLOSEC] 20 mg PO BIDAC capsule. 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 history - Social History Smoking Status: Never smoker Smokeless Tobacco Status: No Alcohol use: Reports: unknown Drug use: Reports: none Physical Exam - General General appearance: alert, in no apparent distress Course Vital Signs Temperature 98.0 F 01/13/19 13:43 Pulse Rate 88 01/13/19 13:43 Respiratory Rate 20 01/13/19 13:43 Blood Pressure 107/92 01/13/19 13:43 O2 Sat by Pulse Oximetry 95 01/13/19 13:43 Temperature 98.0 F 01/13/19 13:43 Pulse Rate 78 01/13/19 17:09 Respiratory Rate 16 01/13/19 17:09 Blood Pressure 109/81 01/13/19 17:09 O2 Sat by Pulse Oximetry 96 01/13/19 17:09 Oxygen Delivery Oxygen Delivery Room Air Medical Decision Making - Lab Data Result diagrams: 01/13/19 14:16 01/13/19 14:16 Lab Results 01/13/19 01/13/19 01/13/19 Range/Units 13:45 14:16 14:16 WBC 14.3 H (4.3-11.1) K/mcL RBC 3.27 L (3.82-4.97) M/mcL Hgb 9.4 L (11.5-15.4) g/dL Hct 29.0 L (35.3-44.9) % MCV 88.7 (83.0-100.0) fL MCH 28.7 (28.0-33.3) pg MCHC 32.4 (31.6-35.5) g/dL RDW 14.3 (11.5-14.5) % Plt Count 114 L (140-400) K/mcL MPV 9.7 (9.4-12.4) fL Immature Gran % 6.8 H (0-4) % Seg Neutrophils % 75.9 % Lymphocytes % 6.5 % Monocytes % 9.8 % Eosinophils % 0.6 % Basophils % 0.4 % Neutrophils # 10.9 H (1.6-8.9) K/mcL Lymphocytes # 0.9 (0.6-4.6) K/mcL Monocytes # 1.4 H (0.0-1.3) K/mcL Eosinophils # 0.1 (0.0-0.6) K/mcL Basophils # 0.1 (0.0-0.2) K/mcL Platelet Estimate Slight Decrease L (Normal) Anisocytosis 1+ A (Not Present) Macrocytosis Present A (Not Present) Sodium 129 L (136-145) mEq/L Potassium 3.5 (3.5-5.1) mEq/L Chloride 101 (98-107) mEq/L Carbon Dioxide 21 L (23-29) mEq/L BUN 42 H (8-23) mg/dL Creatinine 1.10 (0.60-1.20) mg/dL Est GFR ( Amer) 58 L (> 60) Est GFR (Non-Af Amer) 48 L (> 60) BUN/Creatinine Ratio 38 H (6-26) Glucose 161 H (70-105) mg/dL Calculated Osmolality 282 (280-300) Calcium 7.9 L (8.6-10.3) mg/dL Total Bilirubin 0.4 (0.3-1.0) mg/dL AST 19 (13-39) Units/L ALT 13 (7-52) Units/L Alkaline Phosphatase 84 (34-104) Units/L Troponin I 0.03 (< 0.04) ng/mL Serum Total Protein 5.3 L (6.4-8.9) g/dL Albumin 2.3 L (3.5-5.7) g/dL Globulin 3.0 (2.4-3.5) g/dL Albumin/Globulin Ratio 0.8 L (1.1-2.2) Urine Color (Yellow) Urine Clarity (Clear) Urine pH (5.0-8.0) pH Units Ur Specific [place] (1.010-1.025) Urine Protein (Neg-Trace) mg/dL Urine Glucose (UA) (Normal) mg/dL Urine Ketones (Negative) mg/dL Urine Blood (Negative) Urine Nitrite (Negative) Urine Bilirubin (Negative) Urine Urobilinogen (Normal) mg/dL Ur Leukocyte Esterase (Negative) Ur Culture Indicated? (NO) Stool Occult Bld Scrn Positive A (Negative) 01/13/19 Range/Units 15:46 WBC (4.3-11.1) K/mcL RBC (3.82-4.97) M/mcL Hgb (11.5-15.4) g/dL Hct (35.3-44.9) % MCV (83.0-100.0) fL MCH (28.0-33.3) pg MCHC (31.6-35.5) g/dL RDW (11.5-14.5) % Plt Count (140-400) K/mcL MPV (9.4-12.4) fL Immature Gran % (0-4) % Seg Neutrophils % % Lymphocytes % % Monocytes % % Eosinophils % % Basophils % % Neutrophils # (1.6-8.9) K/mcL Lymphocytes # (0.6-4.6) K/mcL Monocytes # (0.0-1.3) K/mcL Eosinophils # (0.0-0.6) K/mcL Basophils # (0.0-0.2) K/mcL Platelet Estimate (Normal) Anisocytosis (Not Present) Macrocytosis (Not Present) Sodium (136-145) mEq/L Potassium (3.5-5.1) mEq/L Chloride (98-107) mEq/L Carbon Dioxide (23-29) mEq/L BUN (8-23) mg/dL Creatinine (0.60-1.20) mg/dL Est GFR ( Amer) (> 60) Est GFR (Non-Af Amer) (> 60) BUN/Creatinine Ratio (6-26) Glucose (70-105) mg/dL Calculated Osmolality (280-300) Calcium (8.6-10.3) mg/dL Total Bilirubin (0.3-1.0) mg/dL AST (13-39) Units/L ALT (7-52) Units/L Alkaline Phosphatase (34-104) Units/L Troponin I (< 0.04) ng/mL Serum Total Protein (6.4-8.9) g/dL Albumin (3.5-5.7) g/dL Globulin (2.4-3.5) g/dL Albumin/Globulin Ratio (1.1-2.2) Urine Color Yellow (Yellow) Urine Clarity Clear (Clear) Urine pH 5.5 (5.0-8.0) pH Units Ur Specific [place] 1.016 (1.010-1.025) Urine Protein Negative (Neg-Trace) mg/dL Urine Glucose (UA) Normal (Normal) mg/dL Urine Ketones Negative (Negative) mg/dL Urine Blood Negative (Negative) Urine Nitrite Negative (Negative) Urine Bilirubin Negative (Negative) Urine Urobilinogen Normal (Normal) mg/dL Ur Leukocyte Esterase Negative (Negative) Ur Culture Indicated? NO (NO) Stool Occult Bld Scrn (Negative) Attestation Statement - Attestation Attestation: I examined this patient and my medical decision-making was reviewed with the Resident Physician. I agree with the documented findings, disposition and treatment plan as described except to the extent set forth below. Patient presents to the ED with a chief complaint of dark stool. Sent in by her [facility]CF when the nurse noticed it. Patient is without complaint. On exam she is in no distress with a soft, nontender abdomen. Rectal exam shows no bright red blood. Plan. Stool culture sent. Basic labs. Hemoglobin is stable, but her Hemoccult is positive. Patient is admitted to medicine for a presumed upper GI bleed. She is given IV Protonix. Chest X-Ray 01/13/19 14:46 IMPRESSION: Stable portable study. D/ / Ginna Rios Cha, MD / Ginna Rios Cha, MD Interpreting Provider: Ginna Rios Cha, MD
[2019-01-13 14:34] LABS: Basophils # 0.1 K/mcL (0.0-0.2); Basophils % 0.4 %; Eosinophils # 0.1 K/mcL (0.0-0.6); Eosinophils % 0.6 %; Hemoglobin 9.4 g/dL (11.5-15.4); Immature Granulocytes % 6.8 % (0-4); Lymphocytes # 0.9 K/mcL (0.6-4.6); Lymphocytes % 6.5 %; Mean Corpuscular HGB Conc 32.4 g/dL (31.6-35.5); Mean Corpuscular Hemoglobin 28.7 pg (28.0-33.3); Mean Corpuscular Volume 88.7 fL (83.0-100.0); Mean Platelet Volume 9.7 fL (9.4-12.4); Monocytes # 1.4 K/mcL (0.0-1.3); Monocytes % 9.8 %; Neutrophils # 10.9 K/mcL (1.6-8.9); Platelet Count 114 K/mcL (140-400); Red Blood Count 3.27 M/mcL (3.82-4.97); Red Cell Distribution Width 14.3 % (11.5-14.5); Segmented Neutrophils % 75.9 %; White Blood Count 14.3 K/mcL (4.3-11.1)
[2019-01-13 14:50] LABS: Albumin 2.3 g/dL (3.5-5.7); Albumin/Globulin Ratio 0.8 (1.1-2.2); Bilirubin,Total 0.4 mg/dL (0.3-1.0); Calcium 7.9 mg/dL (8.6-10.3); Potassium 3.5 mEq/L (3.5-5.1); Total Protein 5.3 g/dL (6.4-8.9)
[2019-01-13 14:51] LABS: Troponin I 0.03 ng/mL (< 0.04)
[2019-01-13 14:59] LABS: Platelet Estimate Slight Decrease (Normal)
[2019-01-13 15:00] LABS: Anisocytosis 1+ (Not Present); Macrocytosis Present (Not Present)
[2019-01-13 15:58] LABS: Bilirubin,Urine Negative (Negative); Blood,Urine Negative (Negative); Clarity,Urine Clear (Clear); Color,Urine Yellow (Yellow); Glucose,Urine (UA) Normal (Normal); Ketones,Urine Negative (Negative); Leukocyte Esterase,Urine Negative (Negative); Nitrite,Urine Negative (Negative); PH,Urine 5.5 pH Units (5.0-8.0); Protein,Urine Negative (Neg-Trace); Specific Gravity,Urine 1.016 (1.010-1.025); Urobilinogen,Urine Normal (Normal)
--- NOTE | 2019-01-13 16:04 | Emergency Department Note ---
Disposition Clinical Impression: Upper GI bleed Disposition: Admitted As Inpatient Condition: Fair Time of Disposition: 18:34 General Adult HPI - General Chief complaint: ED GI Bleed Stated complaint: GI Bleed Time Seen by Provider: 01/13/19 13:42 Source: patient Mode of arrival: EMS Limitations: no limitations Nursing Notes Reviewed: Yes Vital Signs Reviewed: Yes - History of Present Illness HPI Narrative: Patient is a center female past medical history of atrial fibrillation as well as abdominal surgeries secondary to perforated abdominal viscus presenting to the ED from long-term facility for evaluation of blood in the stool that occurred this morning. Pain Scale: 0 - Related Data Home Medications Medication Instructions Recorded Confirmed Amitriptyline [Elavil] 40 mg PO HS 07/04/16 01/13/19 Escitalopram [Lexapro] 20 mg PO DAILY 07/04/16 01/13/19 Oxycodone HCl/Acetaminophen 1 tab PO Q8H PRN 07/04/16 01/13/19 [Percocet 10-325 mg Tablet] Simvastatin [Zocor] 20 mg PO HS 07/04/16 01/13/19 Sucralfate [Carafate] 1 gm PO QIDAC 07/04/16 01/13/19 Donepezil HCl [Aricept] 10 mg PO DAILY 01/23/18 01/13/19 Potassium Chloride [K-Tab ER] 10 meq PO BID 07/11/18 01/13/19 Metoprolol [Lopressor] 25 mg PO BID 12/19/18 01/13/19 Previous Rx's Medication Instructions Recorded Furosemide [Lasix] 20 mg PO BID #60 tablet 11/16/17 Acetaminophen [Tylenol] 650 mg PO Q6HR PRN tablet 12/26/18 Omeprazole [PriLOSEC] 20 mg PO BIDAC capsule. 12/26/18 Allergies Allergy/AdvReac Type Severity Reaction Status Date / Time haloperidol Allergy Hallucinati Verified 12/20/18 14:21 ng All systems ED: reviewed and negative except as stated. Review of Systems: As Per HPI Constitutional: Reports: weakness Cardiovascular: Denies: chest pain, palpitations Respiratory: Reports: cough. Denies: dyspnea, wheezes, sputum production Gastrointestinal: Denies: abdominal pain, nausea, vomiting Musculoskeletal: Denies: back pain, neck pain Integumentary: Denies: rash Neurological: Denies: headache, weakness, numbness, paresthesias Past Medical History - Past Medical History Attestation: Yes The following information was validated with the patient. 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 She will come in for further evaluation for GI bleed. No blood thinners reported in her chart medication list from the long-term. Vital Signs Temperature 98.0 F 01/13/19 13:43 Pulse Rate 88 01/13/19 13:43 Respiratory Rate 20 01/13/19 13:43 Blood Pressure 107/92 01/13/19 13:43 O2 Sat by Pulse Oximetry 95 01/13/19 13:43 Temperature 98.0 F 01/13/19 13:43 Pulse Rate 78 01/13/19 17:09 Respiratory Rate 16 01/13/19 18:19 Blood Pressure 116/59 01/13/19 18:19 O2 Sat by Pulse Oximetry 96 01/13/19 17:09 Oxygen Delivery Oxygen Delivery Room Air Medical Decision Making - Medical Records Medical records reviewed: Yes I reviewed the patient's medical records. - Lab Data Lab results reviewed: Yes I reviewed the patient's lab results. Result diagrams: 01/13/19 18:06 01/13/19 14:16 Lab Results 01/13/19 01/13/19 01/13/19 Range/Units 13:45 14:16 14:16 WBC 14.3 H (4.3-11.1) K/mcL RBC 3.27 L (3.82-4.97) M/mcL Hgb 9.4 L (11.5-15.4) g/dL Hct 29.0 L (35.3-44.9) % MCV 88.7 (83.0-100.0) fL MCH 28.7 (28.0-33.3) pg MCHC 32.4 (31.6-35.5) g/dL RDW 14.3 (11.5-14.5) % Plt Count 114 L (140-400) K/mcL MPV 9.7 (9.4-12.4) fL Immature Gran % 6.8 H (0-4) % Seg Neutrophils % 75.9 % Lymphocytes % 6.5 % Monocytes % 9.8 % Eosinophils % 0.6 % Basophils % 0.4 % Neutrophils # 10.9 H (1.6-8.9) K/mcL Lymphocytes # 0.9 (0.6-4.6) K/mcL Monocytes # 1.4 H (0.0-1.3) K/mcL Eosinophils # 0.1 (0.0-0.6) K/mcL Basophils # 0.1 (0.0-0.2) K/mcL Platelet Estimate Slight Decrease L (Normal) Anisocytosis 1+ A (Not Present) Macrocytosis Present A (Not Present) Sodium 129 L (136-145) mEq/L Potassium 3.5 (3.5-5.1) mEq/L Chloride 101 (98-107) mEq/L Carbon Dioxide 21 L (23-29) mEq/L BUN 42 H (8-23) mg/dL Creatinine 1.10 (0.60-1.20) mg/dL Est GFR ( Amer) 58 L (> 60) Est GFR (Non-Af Amer) 48 L (> 60) BUN/Creatinine Ratio 38 H (6-26) Glucose 161 H (70-105) mg/dL Calculated Osmolality 282 (280-300) Calcium 7.9 L (8.6-10.3) mg/dL Total Bilirubin 0.4 (0.3-1.0) mg/dL AST 19 (13-39) Units/L ALT 13 (7-52) Units/L Alkaline Phosphatase 84 (34-104) Units/L Troponin I 0.03 (< 0.04) ng/mL Serum Total Protein 5.3 L (6.4-8.9) g/dL Albumin 2.3 L (3.5-5.7) g/dL Globulin 3.0 (2.4-3.5) g/dL Albumin/Globulin Ratio 0.8 L (1.1-2.2) Urine Color (Yellow) Urine Clarity (Clear) Urine pH (5.0-8.0) pH Units Ur Specific [place] (1.010-1.025) Urine Protein (Neg-Trace) mg/dL Urine Glucose (UA) (Normal) mg/dL Urine Ketones (Negative) mg/dL Urine Blood (Negative) Urine Nitrite (Negative) Urine Bilirubin (Negative) Urine Urobilinogen (Normal) mg/dL Ur Leukocyte Esterase (Negative) Ur Culture Indicated? (NO) Stool Occult Bld Scrn Positive A (Negative) 01/13/19 Range/Units 15:46 WBC (4.3-11.1) K/mcL RBC (3.82-4.97) M/mcL Hgb (11.5-15.4) g/dL Hct (35.3-44.9) % MCV (83.0-100.0) fL MCH (28.0-33.3) pg MCHC (31.6-35.5) g/dL RDW (11.5-14.5) % Plt Count (140-400) K/mcL MPV (9.4-12.4) fL Immature Gran % (0-4) % Seg Neutrophils % % Lymphocytes % % Monocytes % % Eosinophils % % Basophils % % Neutrophils # (1.6-8.9) K/mcL Lymphocytes # (0.6-4.6) K/mcL Monocytes # (0.0-1.3) K/mcL Eosinophils # (0.0-0.6) K/mcL Basophils # (0.0-0.2) K/mcL Platelet Estimate (Normal) Anisocytosis (Not Present) Macrocytosis (Not Present) Sodium (136-145) mEq/L Potassium (3.5-5.1) mEq/L Chloride (98-107) mEq/L Carbon Dioxide (23-29) mEq/L BUN (8-23) mg/dL Creatinine (0.60-1.20) mg/dL Est GFR ( Amer) (> 60) Est GFR (Non-Af Amer) (> 60) BUN/Creatinine Ratio (6-26) Glucose (70-105) mg/dL Calculated Osmolality (280-300) Calcium (8.6-10.3) mg/dL Total Bilirubin (0.3-1.0) mg/dL AST (13-39) Units/L ALT (7-52) Units/L Alkaline Phosphatase (34-104) Units/L Troponin I (< 0.04) ng/mL Serum Total Protein (6.4-8.9) g/dL Albumin (3.5-5.7) g/dL Globulin (2.4-3.5) g/dL Albumin/Globulin Ratio (1.1-2.2) Urine Color Yellow (Yellow) Urine Clarity Clear (Clear) Urine pH 5.5 (5.0-8.0) pH Units Ur Specific [place] 1.016 (1.010-1.025) Urine Protein Negative (Neg-Trace) mg/dL Urine Glucose (UA) Normal (Normal) mg/dL Urine Ketones Negative (Negative) mg/dL Urine Blood Negative (Negative) Urine Nitrite Negative (Negative) Urine Bilirubin Negative (Negative) Urine Urobilinogen Normal (Normal) mg/dL Ur Leukocyte Esterase Negative (Negative) Ur Culture Indicated? NO (NO) Stool Occult Bld Scrn (Negative) - Radiology Data Radiology results reviewed: Yes I reviewed the patient's radiology results. Chest X-Ray 01/13/19 14:46 IMPRESSION: Stable portable study. D/ / Ginna Rios Cha, MD / Ginna Rios Cha, MD Interpreting Provider: Ginna Rios Cha, MD - EKG Data EKG #1 EKG attestation: Yes I reviewed and interpreted this EKG. EKG results narrative: EKG done at 14:03 shows sinus rhythm at 84 bpm. QRS is widened. Patient also has nonspecific ST abnormalities diffusely.
[2019-01-13] MEDS ORDERED: Pantoprazole 40 MG VIAL IVP ONE (17:35)
[2019-01-13] MEDS ORDERED: Naloxone 0.4 MG/ML INJ IVP PRN (17:43)
[2019-01-13] MEDS ORDERED: Ondansetron 4 MG/2 ML VIAL IVP PRN (17:43)
[2019-01-13] MEDS ORDERED: Dextrose Gel 15 GM/37.5 ML TUBE PO PRN ×2 (17:49)
[2019-01-13] MEDS ORDERED: D5% in Water 1,000 ML IVC PRN (17:49)
[2019-01-13] MEDS ORDERED: *HR* Dextrose 50 % in Water (Syg) 50 ML SYRINGE IVP PRN (17:49)
[2019-01-13] MEDS ORDERED: D5% in 0.9% NACL 1,000 ML IVC SCH (18:00)
[2019-01-13 18:19] LABS: Basophils % 0.4 %; Eosinophils # 0.1 K/mcL (0.0-0.6); Hematocrit 25.2 % (35.3-44.9); Hemoglobin 8.3 g/dL (11.5-15.4); Immature Granulocytes % 4.9 % (0-4); Lymphocytes # 1.1 K/mcL (0.6-4.6); Lymphocytes % 11.4 %; Mean Corpuscular HGB Conc 32.9 g/dL (31.6-35.5); Mean Corpuscular Volume 88.1 fL (83.0-100.0); Monocytes % 10.3 %; Neutrophils # 6.7 K/mcL (1.6-8.9); Red Blood Count 2.86 M/mcL (3.82-4.97); Red Cell Distribution Width 14.2 % (11.5-14.5); White Blood Count 9.3 K/mcL (4.3-11.1)
[2019-01-13 18:20] LABS: Platelet Count 90 K/mcL (140-400)
--- NOTE | 2019-01-13 18:21 | Internal Med History&Physical ---
Date of Encounter: 01/13/19 Time of Encounter: 18:16 Internal Medicine - H&P: HPI Chief complaint: Dark stool Plans for Post Hospital Care: Home History of present illness: Ms. Nieto is a 78 year old female PMH dementia, DM, HLD, HTN and recent duodenal ulcer perforation on 12/10/18 s/p xploratory laparotomy with, repair of perforated pyloric ulcer with Mamadou patch. Patient was sent today to the hospital from [facility] due passing dark stool. Information obtained from the patient and her son at bedside. Per patient son he stated he was called from the [facility] and was informed that his mom was going to be sent to the hospital because she had a BM of dark stool today morning. The patient reports epigastric abdominal discomfort, but denies nausea, vomiting or chest pain. Patient denies urinary symptoms. Denies fever, chills, or change in mental status. Past Med Surg Social Fam HX - Past Medical History Medical history: cirrhosis, dementia, diabetes, GERD, hyperlipidemia, hypertension, other Additional medical history: stomach ulcers, hiatel hernia, metal plate in head, UTI's Psychiatric history: depression - Past Surgical History Surgical History: hysterectomy Additional surgical history: family states "sx for bleeding ulcer" - Social History Smoking Status: Never smoker Smokeless Tobacco Status: No Alcohol use: unknown Drug use: none - Family History Sister Adopted: No Family Member Ethnicity: Non- Living Status: Hx Family Cardiac Disorders: Yes (Brain aneurysm) Hx Family Respiratory Disorders: No Hx Family Cancer: No Hx Family GI Disorders: No Hx Family Endocrine Disorder: No Hx Family Neuromuscular Disorders: No Hx Family Neurologic Disorders: No Hx Family HEENT Disorders: No Hx Family Autoimmune Disorders: No Brother Family Member Ethnicity: Non- Living Status: Hx Family Cardiac Disorders: Yes (HF, CAD) Mother Family Member Ethnicity: Non- Living Status: Hx Family Cardiac Disorders: Yes (HF, CAD, HTN) Father Family Member Ethnicity: Non- Living Status: Hx Family GI Disorders: Yes (Bleeding ulcers) Internal Medicine - H&P: Meds Amitriptyline [Elavil] 40 mg PO HS 07/04/16 [History] Escitalopram [Lexapro] 20 mg PO DAILY 07/04/16 [History] Oxycodone HCl/Acetaminophen [Percocet 10-325 mg Tablet] 1 tab PO Q8H PRN 07/04/16 [History] Simvastatin [Zocor] 20 mg PO HS 07/04/16 [History] Sucralfate [Carafate] 1 gm PO QIDAC 07/04/16 [History] Furosemide [Lasix] 20 mg PO BID #60 tablet 11/16/17 [Rx] Donepezil HCl [Aricept] 10 mg PO DAILY 01/23/18 [History] Potassium Chloride [K-Tab ER] 10 meq PO BID 07/11/18 [History] Metoprolol [Lopressor] 25 mg PO BID 12/19/18 [History] Acetaminophen [Tylenol] 650 mg PO Q6HR PRN tablet 12/26/18 [Rx] Omeprazole [PriLOSEC] 20 mg PO BIDAC capsule. 12/26/18 [Rx] Allergy/AdvReac Type Severity Reaction Status Date / Time haloperidol Allergy Hallucinati Verified 12/20/18 14:21 ng All Systems PM: A 10-system review of systems was performed and is negative for pertinent findings except as documented above in the HPI. - Constitutional Constitutional: no chills, no fever(s), no weakness - Cardiovascular Cardiovascular ROS IM: no chest pain, no dyspnea, no dyspnea on exertion, no lightheadedness, no orthopnea - Respiratory Respiratory: cough, no pain on inspiration, no chest congestion - Gastrointestinal Gastrointestinal: abdominal pain (epigastric.), melena, no hematemesis, no hematochezia, no nausea, no vomiting - Genitourinary Genitourinary: no dysuria - Musculoskeletal Musculoskeletal ROS IM: no back pain - Integumentary Integumentary IM: no erythema - Neurological Neurological ROS: no headache(s) - Psychiatric Psychiatric: no anxiety - Endocrine Endocrine IM: no cold intolerance, no polydipsia - Hematologic/Lymphatic Hematologic/Lymphatic: no lymphadenopathy - Allergic/Immunologic Allergic/Immunologic: no GI upset with certain foods - Constitutional Vitals: Temp Pulse Resp BP Pulse Ox 98.0 F 78 16 109/81 96 01/13/19 13:43 01/13/19 17:09 01/13/19 17:09 01/13/19 17:09 01/13/19 17:09 Exam: Vitals: Reviewed General: Alert and oriented x4. In mild distress due to epigastric abdominal pain Cardiovascular: irregularly, irregular, normal S1 & S2, no rubs, murmurs or gallops. Lungs: CTA b/l, no wheezes or crackles. Abdomen: Soft, non-tender, no rigidity. Extremities: No deformity, no edema or tenderness, no joint swelling or clubbing . Neurological: No focal neurological abnormalities. Rest of the physical exam is non contributory Internal Med - H&P Results - Labs CBC & Chem 7: 01/13/19 14:16 01/13/19 14:16 Labs: Short CBC 01/13/19 Range/Units 14:16 WBC 14.3 H (4.3-11.1) K/mcL Hgb 9.4 L (11.5-15.4) g/dL Hct 29.0 L (35.3-44.9) % Plt Count 114 L (140-400) K/mcL Neutrophils # 10.9 H (1.6-8.9) K/mcL BMP 01/13/19 14:16 Sodium 129 L Potassium 3.5 Chloride 101 Carbon Dioxide 21 L BUN 42 H Creatinine 1.10 Glucose 161 H Calcium 7.9 L Cardiac Enzymes 01/13/19 Range/Units 14:16 Troponin I 0.03 (< 0.04) ng/mL Liver Function 01/13/19 Range/Units 14:16 Total Bilirubin 0.4 (0.3-1.0) mg/dL AST 19 (13-39) Units/L ALT 13 (7-52) Units/L Alkaline Phosphatase 84 (34-104) Units/L Albumin 2.3 L (3.5-5.7) g/dL Urine 01/13/19 Range/Units 15:46 Urine Color Yellow (Yellow) Urine Clarity Clear (Clear) Urine pH 5.5 (5.0-8.0) pH Units Ur Specific [place] 1.016 (1.010-1.025) Urine Protein Negative (Neg-Trace) mg/dL Urine Glucose (UA) Normal (Normal) mg/dL - Impressions ITS Impressions Chest X-Ray 01/13/19 14:46 IMPRESSION: Stable portable study. D/ / Ginna Rios Cha, MD / Ginna Rios Cha, MD Interpreting Provider: Ginna Rios Cha, MD - Diagnostic Studies Chest x-ray Status: image reviewed by me (No acute abnormalities. ) - Assessment and Plan (1) GI bleed Current Visit: Yes Status: Acute Assessment and plan: patient with recent Hx of perforated duodenal ulcer. presenting with dark stool. Plan NPO CBC Q6HRs, will transfuse per protocol started on PPIs/IV BID c/w sucralfate GI has been consulted recommendations appreciated d5NS @50ml/hr maintenance fluid, to avoid hypoglycemia. Qualifiers: GI bleed type/associated pathology: unspecified gastrointestinal hemorrhage type Qualified Code(s): K92.2 - Gastrointestinal hemorrhage, unspecified (2) PUD (peptic ulcer disease) Current Visit: Yes Status: Chronic Assessment and plan: plan of care as above. (3) A-fib Current Visit: No Status: Acute Assessment and plan: On metoprolol 25 mg by mouth twice a day. off anticoagulation due to Hx of GI bleeding. Qualifiers: Atrial fibrillation type: paroxysmal Qualified Code(s): I48.0 - Paroxysmal atrial fibrillation (4) CHF (congestive heart failure) Current Visit: No Status: Chronic Assessment and plan: patient is euvolemic. Hold furosemide for now. Qualifiers: Heart failure type: unspecified Heart failure chronicity: unspecified Qualified Code(s): I50.9 - Heart failure, unspecified (5) DVT prophylaxis Current Visit: No Status: Acute Assessment and plan: intermittent pneumatic compression for dvt prophylaxis. (6) Iron deficiency anemia Current Visit: No Status: Chronic Assessment and plan: will start patient on ferrous sulfate post GI evaluation. Qualifiers: Iron deficiency anemia type: unspecified iron deficiency Qualified Code(s): D50.9 - Iron deficiency anemia, unspecified (7) Dementia Current Visit: No Status: Chronic Assessment and plan: Continue the donepezil Qualifiers: Dementia type: unspecified type Dementia behavioral disturbance: without behavioral disturbance Qualified Code(s): F03.90 - Unspecified dementia without behavioral disturbance (8) Depression Current Visit: No Status: Chronic Assessment and plan: Patient is on Lexapro. Qualifiers: Depression Type: unspecified Qualified Code(s): F32.9 - Major depressive disorder, single episode, unspecified (9) Diabetes mellitus Current Visit: No Status: Chronic Assessment and plan: NPO. lispro low dose sliding scale Q6HR. Qualifiers: Diabetes mellitus type: type 2 Diabetes mellitus vermin exterminator insulin use: without vermin exterminator use Diabetes mellitus complication status: without complication Qualified Code(s): E11.9 - Type 2 diabetes mellitus without complications (10) HLD (hyperlipidemia) Current Visit: No Status: Chronic Assessment and plan: On simvastatin 20 mg by mouth daily Qualifiers: Hyperlipidemia type: pure hypercholesterolemia Qualified Code(s): E78.00 - Pure hypercholesterolemia, unspecified; E78.0 - Pure hypercholesterolemia (11) HTN (hypertension) Current Visit: No Status: Chronic Assessment and plan: will resume patient's home antihypertensive medications. Qualifiers: Hypertension type: essential hypertension Qualified Code(s): I10 - Essential (primary) hypertension (12) History of bleeding ulcers Current Visit: No Status: Chronic (13) Hyponatremia Current Visit: No Status: Chronic Assessment and plan: chronic hyponatremia. without neurological abnormalities. started on D5NS. will reassess sodium level tomorrow morning. (14) Obstructive sleep apnea Current Visit: No Status: Chronic (15) Leukocytosis Current Visit: Yes Status: Acute Assessment and plan: possible reactive. will monitor clinically. procalcitonin ordered abd/pelvis ct ordered, patient with Hx of perforated PUD. Qualifiers: Leukocytosis type: unspecified Qualified Code(s): D72.829 - Elevated white blood cell count, unspecified - Time Spent With Patient Total time spent is greater than 50% in coordination of care (as documented) at patient's floor/unit and/or counseling patient: Greater than 35 minutes (50)
[2019-01-13 18:28] LABS: INR 1.3; Prothrombin Time 15.2 Seconds (9.4-12.1)
[2019-01-13] MEDS: Pantoprazole 40 MG VIAL IVP SCH (19:45)
[2019-01-13] MEDS: Insulin LISPRO 300 UNITS/3 ML VIAL SQ SCH (21:08)
[2019-01-13] MEDS: Sucralfate 1 GM TABLET PO SCH (21:08)
[2019-01-13] MEDS: traMADol 50 MG TABLET PO PRN (23:28)
[2019-01-14] MEDS: Insulin LISPRO 300 UNITS/3 ML VIAL SQ SCH ×5 (00:57→23:26)
[2019-01-14 02:37] LABS: Hematocrit 22.2 % (35.3-44.9); Hemoglobin 7.4 g/dL (11.5-15.4); Immature Platelets 2.4 % (1.1-6.1); Mean Corpuscular HGB Conc 33.3 g/dL (31.6-35.5); Mean Corpuscular Volume 87.1 fL (83.0-100.0); Mean Platelet Volume 9.9 fL (9.4-12.4); Monocytes # 0.6 K/mcL (0.0-1.3); Red Blood Count 2.55 M/mcL (3.82-4.97); Red Cell Distribution Width 14.3 % (11.5-14.5); White Blood Count 5.9 K/mcL (4.3-11.1)
[2019-01-14 02:41] LABS: Platelet Count 79 K/mcL (140-400)
[2019-01-14 02:46] LABS: BUN/Creatinine Ratio 38 (6-26); Blood Urea Nitrogen 38 mg/dL (8-23); Calcium 7.7 mg/dL (8.6-10.3); Carbon Dioxide 19 mEq/L (23-29); Chloride 104 mEq/L (98-107); Glucose 129 mg/dL (70-105); Magnesium 1.1 mg/dL (1.6-2.6); Osmolality,Calculated 281 (280-300); Phosphorous 2.7 mg/dL (2.7-4.5); Potassium 3.2 mEq/L (3.5-5.1); Sodium 130 mEq/L (136-145); eGFR For African Americans > 60 (> 60); eGFR For Non-African Americans 53 (> 60)
[2019-01-14 03:00] LABS: Large Platelets Present (Not Present); Lymphocytes # 0.8 K/mcL (0.6-4.6); Neutrophils # 4.5 K/mcL (1.6-8.9); Platelet Estimate Decreased (Normal); Polychromasia 1+ (Not Present)
[2019-01-14 06:14] LABS: Monocytes % 10.9 %; Red Cell Distribution Width 14.4 % (11.5-14.5)
[2019-01-14 06:16] LABS: Basophils % 0.2 %; Eosinophils # 0.1 K/mcL (0.0-0.6); Eosinophils % 1.4 %; Hematocrit 22.9 % (35.3-44.9); Hemoglobin 7.4 g/dL (11.5-15.4); Immature Granulocytes % 5.1 % (0-4); Immature Platelets 2.7 % (1.1-6.1); Lymphocytes # 0.9 K/mcL (0.6-4.6); Mean Corpuscular HGB Conc 32.3 g/dL (31.6-35.5); Mean Corpuscular Volume 89.8 fL (83.0-100.0); Mean Platelet Volume 10.1 fL (9.4-12.4); Monocytes # 0.6 K/mcL (0.0-1.3); Neutrophils # 3.8 K/mcL (1.6-8.9); Red Blood Count 2.55 M/mcL (3.82-4.97); Segmented Neutrophils % 67.4 %; White Blood Count 5.7 K/mcL (4.3-11.1)
[2019-01-14 06:21] LABS: Platelet Count 78 K/mcL (140-400)
[2019-01-14 06:37] LABS: Platelet Estimate Decreased (Normal); Polychromasia 1+ (Not Present)
[2019-01-14] MEDS: Sucralfate 1 GM TABLET PO SCH ×4 (06:37→21:15)
[2019-01-14] MEDS: Pantoprazole 40 MG VIAL IVP SCH ×2 (06:37→17:58)
[2019-01-14] MEDS ORDERED: 0.9 % Sodium Chloride 250 ML IVC SCH (07:30)
[2019-01-14] MEDS ORDERED: 0.9 % Sodium Chloride 250 ML ONE (08:33)
--- NOTE | 2019-01-14 08:45 | Internal Medicine Consult Note ---
Date of Encounter: 01/14/19 Time of Encounter: 08:44 - Assessment and Plan (1) GI bleed Current Visit: Yes Status: Acute Assessment and plan: Her hemoglobin is down about 2 g, from her discharge hemoglobin on month ago, consistent with GI bleeding and blood loss anemia. Will attempt EGD today, his lungs I can reach her son for consent. We will make sure risks and benefits are discussed, if in the we have complication, her mortality certainly high as she is quite frail. Transfuse as needed, PPI therapy. Qualifiers: GI bleed type/associated pathology: unspecified gastrointestinal hemorrhage t ype Qualified Code(s): K92.2 - Gastrointestinal hemorrhage, unspecified (2) Cirrhosis Current Visit: No Status: Chronic Assessment and plan: No signs of coagulopathy at this time. Qualifiers: Hepatic cirrhosis type: alcoholic cirrhosis Ascites presence: without ascites Qualified Code(s): K70.30 - Alcoholic cirrhosis of liver without ascites (3) Hypoalbuminemia Current Visit: No Status: Chronic Assessment and plan: Consistent with protein calorie malnutrition. (4) Perforated ulcer Current Visit: No Status: Acute Assessment and plan: One month out of having a procedure to oversew the pyloric ulcer (5) Dementia Current Visit: No Status: Chronic Qualifiers: Dementia type: unspecified type Dementia behavioral disturbance: without behavioral disturbance Qualified Code(s): F03.90 - Unspecified dementia without behavioral disturbance (6) Diabetes mellitus Current Visit: No Status: Chronic Qualifiers: Diabetes mellitus type: type 2 Diabetes mellitus residential insulin use: without termite inspector use Diabetes mellitus complication status: without complication Qualified Code(s): E11.9 - Type 2 diabetes mellitus without complications Internal Medicine - CN: HPI - Data of Consult Requesting Physician: Katelynn Stephen MD - Consult Narrative Reason for consult: Melena, concern for GI bleeding, anemia. History of present illness: Ms. Nieto is a 78 year old female admitted to the hospital yesterday, from the [facility], with a concern of melena and GI bleeding, she roughly is one month out of having perforation of an ulcer within the stomach and surgical fixation. Had been doing well until there is a noted melanotic stool at the [facility]. Currently Mrs. Nieto looks quite frail, But answers questions appropriately. Appears to be in no distress. Her son Doc, does sign consents for her. I have tried to colon but was unable to reach him as of yet. Past Med Surg Social Fam HX - Past Medical History Medical history: cirrhosis, dementia, diabetes, GERD, hyperlipidemia, hypertension, other Additional medical history: stomach ulcers, hiatel hernia, metal plate in head, UTI's Psychiatric history: depression - Past Surgical History Surgical History: hysterectomy Additional surgical history: One month ago, abdominal procedure, with oversew, of pyloric ulcer. - Social History Smoking Status: Never smoker Smokeless Tobacco Status: No Alcohol use: unknown Drug use: none - Family History Sister Adopted: No Family Member Ethnicity: Non- Living Status: Hx Family Cardiac Disorders: Yes (Brain aneurysm) Hx Family Respiratory Disorders: No Hx Family Cancer: No Hx Family GI Disorders: No Hx Family Endocrine Disorder: No Hx Family Neuromuscular Disorders: No Hx Family Neurologic Disorders: No Hx Family HEENT Disorders: No Hx Family Autoimmune Disorders: No Brother Family Member Ethnicity: Non- Living Status: Hx Family Cardiac Disorders: Yes (HF, CAD) Mother Family Member Ethnicity: Non- Living Status: Hx Family Cardiac Disorders: Yes (HF, CAD, HTN) Father Family Member Ethnicity: Non- Living Status: Hx Family GI Disorders: Yes (Bleeding ulcers) Review of systems: Somewhat limited with answering, but admits she has no abdominal pain, does not feel poorly. She does have loose cough, admits smoking remotely. Internal Medicine - CN: Meds Amitriptyline [Elavil] 40 mg PO HS 07/04/16 [History] Escitalopram [Lexapro] 20 mg PO DAILY 07/04/16 [History] Oxycodone HCl/Acetaminophen [Percocet 10-325 mg Tablet] 1 tab PO Q8H PRN 07/04/16 [History] Simvastatin [Zocor] 20 mg PO HS 07/04/16 [History] Sucralfate [Carafate] 1 gm PO QIDAC 07/04/16 [History] Furosemide [Lasix] 20 mg PO BID #60 tablet 11/16/17 [Rx] Donepezil HCl [Aricept] 10 mg PO DAILY 01/23/18 [History] Potassium Chloride [K-Tab ER] 10 meq PO BID 07/11/18 [History] Metoprolol [Lopressor] 25 mg PO BID 12/19/18 [History] Acetaminophen [Tylenol] 650 mg PO Q6HR PRN tablet 12/26/18 [Rx] Omeprazole [PriLOSEC] 20 mg PO BIDAC capsule. 12/26/18 [Rx] Allergy/AdvReac Type Severity Reaction Status Date / Time haloperidol Allergy Hallucinati Verified 12/20/18 14:21 ng Internal Med - CN: Exam - Constitutional Vitals: Temp Pulse Resp BP Pulse Ox 97.9 F 92 19 111/68 92 01/14/19 08:19 01/14/19 08:19 01/14/19 08:19 01/14/19 08:19 01/14/19 08:19 General appearance IM: Present: cooperative, disheveled, A&O X 2, pleasant, no acute distress, answers questions appropriately - Head Head exam: Present: atraumatic - Eye Eye exam: Present: sclera anicteric. Absent: conjuntiva pink - ENT ENT exam: Present: mucous membranes dry - Neck Neck exam general surgery: Present: supple, trachea midline - Respiratory Respiratory exam: Present: CTAB Additional comments: No tachypnea, O2 sats 93% without oxygen and room, there is basilar rhonchi. - Cardiovascular Cardiovascular exam IM: Present: RRR, +S1, +S2. Absent: JVD, systolic murmur, tachycardia - GI/Abdominal GI/Abdominal exam IM: Present: normal bowel sounds, soft, no peritoneal signs. Absent: splenomegaly, tenderness Additional comments: Appropriate healing midline vertical scar. - Rectal Rectal exam: Present: deferred Internal Medicine - CN: Reslt - Labs CBC & Chem 7: 01/14/19 05:55 01/14/19 02:16 Labs: Short CBC 01/13/19 01/13/19 01/14/19 Range/Units 14:16 18:06 02:16 WBC 14.3 H 9.3 5.9 (4.3-11.1) K/mcL Hgb 9.4 L 8.3 L 7.4 L (11.5-15.4) g/dL Hct 29.0 L 25.2 L 22.2 L (35.3-44.9) % Plt Count 114 L 90 L 79 L (140-400) K/mcL Neutrophils # 10.9 H 6.7 4.5 (1.6-8.9) K/mcL 01/14/19 Range/Units 05:55 WBC 5.7 (4.3-11.1) K/mcL Hgb 7.4 L (11.5-15.4) g/dL Hct 22.9 L (35.3-44.9) % Plt Count 78 L (140-400) K/mcL Neutrophils # 3.8 (1.6-8.9) K/mcL BMP 01/13/19 01/14/19 14:16 02:16 Sodium 129 L 130 L Potassium 3.5 3.2 L Chloride 101 104 Carbon Dioxide 21 L 19 L BUN 42 H 38 H Creatinine 1.10 1.00 Glucose 161 H 129 H Calcium 7.9 L 7.7 L Cardiac Enzymes 01/13/19 Range/Units 14:16 Troponin I 0.03 (< 0.04) ng/mL Liver Function 01/13/19 Range/Units 14:16 Total Bilirubin 0.4 (0.3-1.0) mg/dL AST 19 (13-39) Units/L ALT 13 (7-52) Units/L Alkaline Phosphatase 84 (34-104) Units/L Albumin 2.3 L (3.5-5.7) g/dL Urine 01/13/19 Range/Units 15:46 Urine Color Yellow (Yellow) Urine Clarity Clear (Clear) Urine pH 5.5 (5.0-8.0) pH Units Ur Specific [place] 1.016 (1.010-1.025) Urine Protein Negative (Neg-Trace) mg/dL Urine Glucose (UA) Normal (Normal) mg/dL - ABG Interpretation ABG results: PT/INR, D-dimer PT 15.2 Seconds (9.4-12.1) H 01/13/19 18:06 - Impressions Impressions Chest X-Ray 01/13/19 14:46 IMPRESSION: Stable portable study. D/ / Ginna Rios Cha, MD / Ginna Rios Cha, MD Interpreting Provider: Ginna Rios Cha, MD Abdomen/Pelvis CT 01/13/19 20:33 IMPRESSION: 1. Persistent wall thickening of the stomach as well as the proximal duodenum in keeping with history of recent peptic ulcer disease. Surgical drain in the right upper quadrant has been removed with interval resolution of extraluminal gas within the abdomen. Exam is otherwise limited given lack of oral and IV contrast to evaluate for leak. 2. There has been interval improvement in mesenteric edema as well. 3. Cirrhotic morphology of the liver with stigmata of portal hypertension. D/ / 01/13/2019 20:57:14 Cristiane Stephen MD / amee Interpreting Provider: Cristiane Stephen MD Consult Discharge Plan - Plan Referrals: Sy Beaver DO [Primary Care Provider] -
[2019-01-14] MEDS ORDERED: Magnesium Oxide 400 MG TABLET PO ONE (09:00)
--- NOTE | 2019-01-14 09:02 | Internal Med Progress Note ---
Hospitalist Progress Note - Encounter Date of Encounter: 01/14/19 Time of Encounter: 08:58 - Subjective Interval History: I have seen and evaluated the patient at bedside. Patient in no distress, denies chest pain, abdominal pain, nausea, vomiting or shortness of breath. Per nurse no bloody stool reported overnight or during her shift. - Exam Vitals: Temp Pulse Resp BP Pulse Ox 97.9 F 92 19 111/68 92 01/14/19 08:19 01/14/19 08:19 01/14/19 08:19 01/14/19 08:19 01/14/19 08:19 Exam: Vitals: Reviewed General: Alert and oriented x4. In no distress Cardiovascular: irregularly, irregular, normal S1 & S2, no rubs, murmurs or gallops. Lungs: no wheezes or crackles, mild b/l rales at the bases. Abdomen: Soft, non-tender, no rigidity. NABS in all 4 quadrants. Extremities: No edema. Neurological: No focal neurological abnormalities. Rest of the physical exam is non contributory - Assessment and Plan (1) GI bleed Current Visit: Yes Status: Acute Assessment and Plan: possible secondary to upper GI bleed, patient with a Hx of perforated duodenal ulcer Plan will transfuse 1 unit PRBCs repeat H&H 1 hour post transfusion c/w pantoprazole 40mg/IV BID on anti-emetics GI consulted, patient scheduled for EGD today Keep NPO lispro low doses sliding scale, plus accu-checks Q6HRs decrease IV maintenance fluid to 25ml/hr (2) Cirrhosis Current Visit: No Status: Chronic (3) Hypoalbuminemia Current Visit: No Status: Chronic Assessment and Plan: possible due to protein caloric malnutrition vs liver cirrhosis. (4) Perforated ulcer Current Visit: No Status: Chronic Assessment and Plan: Hx of perforated duodenal ulcer. (5) Dementia Current Visit: No Status: Chronic Assessment and Plan: On donepezil (6) Diabetes mellitus Current Visit: No Status: Chronic Assessment and Plan: NPO as patient is scheduled for EGC. c/w lispro low dose sliding scale Q6HR. (7) A-fib Current Visit: No Status: Acute Assessment and Plan: Rate controlled on a bb. (8) Depression Current Visit: No Status: Chronic Assessment and Plan: On Lexapro 20mg?PO daily. (9) HLD (hyperlipidemia) Current Visit: No Status: Chronic Assessment and Plan: c/w simvastatin 20 mg by mouth at at bedtime. (10) HTN (hypertension) Current Visit: No Status: Chronic Assessment and Plan: Patient with HTN and Hx of HFpEF. will resume furosemide 20mg/PO BID on a bb. (11) Hypokalemia Current Visit: Yes Status: Acute Assessment and Plan: electrolyte replaced. will repeat level 1 hour post replacement (12) Hypomagnesemia Current Visit: Yes Status: Acute Assessment and Plan: plan of care as above. DVT Prophylaxis: Intermittent pneumatic compression for dvt prophylaxis. no chemical dvt prophylaxis due to GI bleed. - Summary of Assessment and Plan Summary of Assessment and Plan: Patient to remain in the hospital due to anemia, secondary to GI bleed. scheduled for EGD. - Time Spent with Patient Total time spent is greater than 50% in coordination of care (as documented) at patient's floor/unit and/or counseling patient: Greater than 35 minutes (45) Plan of Care Discussed with: nurse Internal Medicine: Result - Labs CBC & Chem 7: 01/14/19 05:55 01/14/19 02:16 Labs: Short CBC 01/13/19 01/13/19 01/14/19 Range/Units 14:16 18:06 02:16 WBC 14.3 H 9.3 5.9 (4.3-11.1) K/mcL Hgb 9.4 L 8.3 L 7.4 L (11.5-15.4) g/dL Hct 29.0 L 25.2 L 22.2 L (35.3-44.9) % Plt Count 114 L 90 L 79 L (140-400) K/mcL Neutrophils # 10.9 H 6.7 4.5 (1.6-8.9) K/mcL 01/14/19 Range/Units 05:55 WBC 5.7 (4.3-11.1) K/mcL Hgb 7.4 L (11.5-15.4) g/dL Hct 22.9 L (35.3-44.9) % Plt Count 78 L (140-400) K/mcL Neutrophils # 3.8 (1.6-8.9) K/mcL BMP 01/13/19 01/14/19 14:16 02:16 Sodium 129 L 130 L Potassium 3.5 3.2 L Chloride 101 104 Carbon Dioxide 21 L 19 L BUN 42 H 38 H Creatinine 1.10 1.00 Glucose 161 H 129 H Calcium 7.9 L 7.7 L Cardiac Enzymes 01/13/19 Range/Units 14:16 Troponin I 0.03 (< 0.04) ng/mL Liver Function 01/13/19 Range/Units 14:16 Total Bilirubin 0.4 (0.3-1.0) mg/dL AST 19 (13-39) Units/L ALT 13 (7-52) Units/L Alkaline Phosphatase 84 (34-104) Units/L Albumin 2.3 L (3.5-5.7) g/dL Urine 01/13/19 Range/Units 15:46 Urine Color Yellow (Yellow) Urine Clarity Clear (Clear) Urine pH 5.5 (5.0-8.0) pH Units Ur Specific [place] 1.016 (1.010-1.025) Urine Protein Negative (Neg-Trace) mg/dL Urine Glucose (UA) Normal (Normal) mg/dL - ABG Interpretation ABG results: PT/INR, D-dimer PT 15.2 Seconds (9.4-12.1) H 01/13/19 18:06 - Impressions Impressions Chest X-Ray 01/13/19 14:46 IMPRESSION: Stable portable study. D/ / Ginna Rios Cha, MD / Ginna Rios Cha, MD Interpreting Provider: Ginna Rios Cha, MD Abdomen/Pelvis CT 01/13/19 20:33 IMPRESSION: 1. Persistent wall thickening of the stomach as well as the proximal duodenum in keeping with history of recent peptic ulcer disease. Surgical drain in the right upper quadrant has been removed with interval resolution of extraluminal gas within the abdomen. Exam is otherwise limited given lack of oral and IV contrast to evaluate for leak. 2. There has been interval improvement in mesenteric edema as well. 3. Cirrhotic morphology of the liver with stigmata of portal hypertension. D/ / 01/13/2019 20:57:14 Cristiane Stephen MD / bcarter Interpreting Provider: Cristiane Stephen MD Consult Discharge Plan - Plan Referrals: Sy Beaver DO [Primary Care Provider] - (1) GI bleed Qualifiers: GI bleed type/associated pathology: unspecified gastrointestinal hemorrhage type Qualified Code(s): K92.2 - Gastrointestinal hemorrhage, unspecified (2) Cirrhosis Qualifiers: Hepatic cirrhosis type: alcoholic cirrhosis Ascites presence: without ascites Qualified Code(s): K70.30 - Alcoholic cirrhosis of liver without ascites (5) Dementia Qualifiers: Dementia type: unspecified type Dementia behavioral disturbance: without behavioral disturbance Qualified Code(s): F03.90 - Unspecified dementia without behavioral disturbance (6) Diabetes mellitus Qualifiers: Diabetes mellitus type: type 2 Diabetes mellitus detention insulin use: without detention use Diabetes mellitus complication status: without complication Qualified Code(s): E11.9 - Type 2 diabetes mellitus without complications (7) A-fib Qualifiers: Atrial fibrillation type: paroxysmal Qualified Code(s): I48.0 - Paroxysmal atrial fibrillation (8) Depression Qualifiers: Depression Type: unspecified Qualified Code(s): F32.9 - Major depressive disorder, single episode, unspecified (9) HLD (hyperlipidemia) Qualifiers: Hyperlipidemia type: pure hypercholesterolemia Qualified Code(s): E78.00 - Pure hypercholesterolemia, unspecified; E78.0 - Pure hypercholesterolemia (10) HTN (hypertension) Qualifiers: Hypertension type: essential hypertension Qualified Code(s): I10 - Essential (primary) hypertension
[2019-01-14] MEDS ORDERED: D5% in 0.9% NACL 1,000 ML IVC SCH (09:29)
[2019-01-14] MEDS ORDERED: *HR* Midazolam HCl 5 MG/5 ML VIAL IVP ONE ×2 (09:35→09:43)
[2019-01-14] MEDS ORDERED: *HR* FentaNYL (PF) 100 MCG/2 ML VIAL ONE (09:35)
[2019-01-14] MEDS ORDERED: Simethicone 40 MG/0.6 ML MLS IR ONE (09:43)
[2019-01-14] MEDS ORDERED: *HR* FentaNYL (PF) 100 MCG/2 ML VIAL IVP ONE (09:43)
[2019-01-14] MEDS ORDERED: Tetracaine/Benzocaine/Butamben 1 SPRAY AEROSOL MM ONE (09:43)
--- NOTE | 2019-01-14 09:43 | Pre-Sedation Evaluation ---
Pre-sedation evaluation - Pre-sedation checklist Date of procedure: 01/14/19 Procedure: EGD Recent Vitals: Last Vital Signs Temp 98.2 F 01/14/19 09:14 Pulse 90 01/14/19 09:14 Resp 16 01/14/19 09:14 BP 98/62 01/14/19 09:14 Pulse Ox 93 01/14/19 09:14 H&P (including ROS) documented in medical record: Yes Previous reaction to sedatives/anesthetics: No Dietary Status: NPO after Midnight Airway Assessment: Patient can open mouth completely, TMJ function normal Dentition: dentures removed Possible difficult airway: No ASA Classification *see protocol: CLASS III-Severe systemic disease
--- NOTE | 2019-01-14 10:31 | Event Note ---
Date of Encounter: 01/14/19 Time of Encounter: 10:29 EGD findings: No active bleeding at this time 1. Stomach looks okay, pyloric ulcer noted, with suture material, consistent with recent procedure. No bleeding from this area. Shallow, somewhat broad- based ulcer noted in the duodenal bulb, no bleeding visible vessels noted. No clot. 2. Esophagus with esophagitis. No bleeding. Recommendations 1. We will add back a full liquid diet, continue PPI therapy, await biopsies for H. pylori. Continue Carafate. Prognosis somewhat guarded.
[2019-01-14] MEDS: Furosemide 20 MG/2 ML VIAL IVP SCH ×2 (12:36→17:59)
[2019-01-14 13:57] LABS: Red Cell Distribution Width 14.4 % (11.5-14.5)
[2019-01-14 13:59] LABS: Hematocrit 29.3 % (35.3-44.9); Hemoglobin 9.7 g/dL (11.5-15.4); Immature Platelets 2.6 % (1.1-6.1); Mean Corpuscular HGB Conc 33.1 g/dL (31.6-35.5); Mean Corpuscular Hemoglobin 29.7 pg (28.0-33.3); Mean Corpuscular Volume 89.6 fL (83.0-100.0); Mean Platelet Volume 10.4 fL (9.4-12.4); Monocytes # 0.6 K/mcL (0.0-1.3); Red Blood Count 3.27 M/mcL (3.82-4.97); White Blood Count 7.1 K/mcL (4.3-11.1)
[2019-01-14 14:02] LABS: Platelet Count 78 K/mcL (140-400)
[2019-01-14 14:24] LABS: Neutrophils # 5.5 K/mcL (1.6-8.9); Platelet Estimate Decreased (Normal)
[2019-01-14] MEDS: traMADol 50 MG TABLET PO PRN ×2 (14:48→22:14)
[2019-01-14 17:46] LABS: Basophils % 0.5 %; Eosinophils % 1.3 %; Red Cell Distribution Width 14.1 % (11.5-14.5)
[2019-01-14 17:48] LABS: Eosinophils # 0.1 K/mcL (0.0-0.6); Hematocrit 27.2 % (35.3-44.9); Hemoglobin 9.2 g/dL (11.5-15.4); Immature Granulocytes % 6.2 % (0-4); Immature Platelets 2.2 % (1.1-6.1); Lymphocytes # 0.6 K/mcL (0.6-4.6); Lymphocytes % 10.1 %; Mean Corpuscular HGB Conc 33.8 g/dL (31.6-35.5); Mean Corpuscular Hemoglobin 29.4 pg (28.0-33.3); Mean Corpuscular Volume 86.9 fL (83.0-100.0); Mean Platelet Volume 9.1 fL (9.4-12.4); Monocytes # 0.6 K/mcL (0.0-1.3); Monocytes % 9.2 %; Neutrophils # 4.6 K/mcL (1.6-8.9); Red Blood Count 3.13 M/mcL (3.82-4.97); Segmented Neutrophils % 72.7 %; White Blood Count 6.3 K/mcL (4.3-11.1)
[2019-01-14 18:03] LABS: Platelet Count 86 K/mcL (140-400)
[2019-01-14] MEDS: Melatonin 3 MG TABLET PO PRN (20:49)
[2019-01-14 22:02] LABS: Eosinophils # 0.1 K/mcL (0.0-0.6); Hematocrit 25.8 % (35.3-44.9); Hemoglobin 8.7 g/dL (11.5-15.4); Mean Corpuscular HGB Conc 33.7 g/dL (31.6-35.5); Mean Corpuscular Hemoglobin 29.6 pg (28.0-33.3); Mean Corpuscular Volume 87.8 fL (83.0-100.0); Mean Platelet Volume 9.9 fL (9.4-12.4); Nucleated Red Blood Cells 0.3 /100 WBC (0); Red Blood Count 2.94 M/mcL (3.82-4.97); Red Cell Distribution Width 14.2 % (11.5-14.5); White Blood Count 6.3 K/mcL (4.3-11.1)
[2019-01-14 23:07] LABS: Platelet Count 83 K/mcL (140-400)
[2019-01-14 23:08] LABS: Platelet Estimate Decreased (Normal)
[2019-01-14 23:16] LABS: Lymphocytes # 0.8 K/mcL (0.6-4.6); Monocytes # 0.3 K/mcL (0.0-1.3)
[2019-01-14 23:17] LABS: Polychromasia 1+ (Not Present); Smudge Cells Present (Not Present)
[2019-01-15 05:53] LABS: Hematocrit 26.1 % (35.3-44.9); Red Cell Distribution Width 14.4 % (11.5-14.5)
[2019-01-15 05:56] LABS: Hemoglobin 8.6 g/dL (11.5-15.4); Immature Platelets 2.8 % (1.1-6.1); Mean Corpuscular Hemoglobin 29.2 pg (28.0-33.3); Mean Corpuscular Volume 88.5 fL (83.0-100.0); Mean Platelet Volume 9.8 fL (9.4-12.4); Red Blood Count 2.95 M/mcL (3.82-4.97); White Blood Count 4.8 K/mcL (4.3-11.1)
[2019-01-15 05:59] LABS: Platelet Count 85 K/mcL (140-400)
[2019-01-15] MEDS: Insulin LISPRO 300 UNITS/3 ML VIAL SQ SCH ×3 (06:04→16:23)
[2019-01-15 06:09] LABS: BUN/Creatinine Ratio 28 (6-26); Blood Urea Nitrogen 26 mg/dL (8-23); Calcium 8.1 mg/dL (8.6-10.3); Carbon Dioxide 22 mEq/L (23-29); Chloride 105 mEq/L (98-107); Glucose 128 mg/dL (70-105); Magnesium 1.4 mg/dL (1.6-2.6); Osmolality,Calculated 284 (280-300); Phosphorous 2.8 mg/dL (2.7-4.5); Potassium 3.9 mEq/L (3.5-5.1); Sodium 134 mEq/L (136-145); eGFR For African Americans > 60 (> 60); eGFR For Non-African Americans 57 (> 60)
[2019-01-15] MEDS: Pantoprazole 40 MG VIAL IVP SCH (06:15)
--- NOTE | 2019-01-15 07:03 | Electrocardiograph Report ---
[address] [address] Test Date: 2019-01-13 Pat Name: Amira Nieto Department: [id number] Room: 3A31 Gender: F Objective C Developer: : 1940 Requested By: Bong Flores Order Number: [id number] Reading MD: Vidal Nuñez Measurements Intervals [place] Rate: 84 P: 74 UT: 165 QRS: -50 QRSD: 173 T: 99 QT: 456 QTc: 540 Interpretive Statements Sinus rhythm Left bundle branch block Electronically Signed On 01-15-2019 7:01:57 EDT by Vidal Nuñez
[2019-01-15 07:04] LABS: Eosinophils # 0.3 K/mcL (0.0-0.6); Lymphocytes # 0.5 K/mcL (0.6-4.6); Monocytes # 0.4 K/mcL (0.0-1.3); Neutrophils # 3.7 K/mcL (1.6-8.9); Platelet Estimate Decreased (Normal)
[2019-01-15 07:05] LABS: Smudge Cells Present (Not Present)
--- NOTE | 2019-01-15 07:07 | Electrocardiograph Report ---
[place] [address] Test Date: 2019-01-14 Pat Name: Amira Nieto Department: 115 Room: 3A31 Gender: F [employer] Operator: : 1940 Requested By: [id number] Order Number: [id number] Reading MD: Vidal Nuñez Measurements Intervals [place] Rate: 83 P: 94 [place]: 167 QRS: -46 QRSD: 168 T: 90 QT: 460 QTc: 499 Interpretive Statements SINUS RHYTHM WITH OCCASIONAL SUPRAVENTRICULAR PREMATURE COMPLEXES MARKED LEFT AXIS DEVIATION LEFT BUNDLE BRANCH BLOCK Electronically Signed On 01-15-2019 7:05:18 EDT by Vidal Nuñez
[2019-01-15] MEDS: Sucralfate 1 GM TABLET PO SCH ×4 (07:46→21:45)
[2019-01-15] MEDS: Furosemide 20 MG/2 ML VIAL IVP SCH ×2 (07:46→16:23)
--- NOTE | 2019-01-15 09:10 | Internal Med Progress Note ---
Hospitalist Progress Note - Encounter Date of Encounter: 01/15/19 Time of Encounter: 09:07 - Subjective Interval History: I have seen and evaluated the patient at bedside. patient reported feeling better. Per nursing report patient had multiple episodes of loose stool yesterday, patient reported having 1-2 non-bloody BM today. Denies nausea, vomiting or abdominal pain. denies chest pain. - Exam Vitals: Temp Pulse Resp BP Pulse Ox 98.3 F 81 155 121/75 95 01/15/19 07:38 01/15/19 07:38 01/15/19 07:38 01/15/19 07:38 01/15/19 07:38 Exam: Vitals: Reviewed General: Alert and oriented x4. In no distress Cardiovascular: irregularly, irregular, normal S1 & S2, no rubs, murmurs or gallops. Lungs: no wheezes, crackles, or rales. Abdomen: Soft, non-tender, no rigidity. NABS in all 4 quadrants. Extremities: No edema. Neurological: No focal neurological abnormalities. Rest of the physical exam is non contributory - Assessment and Plan (1) PUD (peptic ulcer disease) Current Visit: Yes Status: Chronic Assessment and Plan: s/p EGD: Stomach looks okay, pyloric ulcer noted, with suture material, consistent with recent procedure. No bleeding from this area. Shallow, somewhat broad-based ulcer noted in the duodenal bulb, no bleeding visible ves sels noted. No clot. Esophagitis. Plan: - DC iv PPIs - started on Omeprazole 40mg/PO daily - On sucralfate 1gm/PO Q1D - GI recommendations appreciated. - DC IV fluids (2) Anemia Current Visit: Yes Status: Chronic Assessment and Plan: Acute blood lost anemia on top of chronic iron deficiency anemia> patient s/p 1 unit of PRBC transfused Plan: - Started on ferrouls sulfate 325mg/PO BID - will monitor H&H for the next 24 hours and transfuse per protocol - (3) GI bleed Current Visit: Yes Status: Resolved (4) Cirrhosis Current Visit: No Status: Chronic (5) Perforated ulcer Current Visit: No Status: Chronic Assessment and Plan: Hx of perforated duodenal ulcer. (6) Dementia Current Visit: No Status: Chronic Assessment and Plan: c/w donepezil 10mg/PO HS. (7) Diabetes mellitus Current Visit: No Status: Chronic Assessment and Plan: Blood sugar is well controlled on Lispro low dose sliding scale ac. on full liquid diet. (8) A-fib Current Visit: No Status: Acute Assessment and Plan: Rate controlled on metoprolol 25mg/PO BID. Not on any anticoagulation due to PUD with Hx of bleeding. (9) Depression Current Visit: No Status: Chronic Assessment and Plan: On escitalopram 20mg/PO daily. (10) HLD (hyperlipidemia) Current Visit: No Status: Chronic Assessment and Plan: On simvastatin 20 mg by mouth at at bedtime. (11) HTN (hypertension) Current Visit: No Status: Chronic Assessment and Plan: BP is well controlled on furosemide and metoprolol. (12) Hypomagnesemia Current Visit: Yes Status: Acute Assessment and Plan: electrolyte replaced. will re-check potassium level tomorrow morning. (13) CKD (chronic kidney disease), stage I Current Visit: Yes Status: Chronic Assessment and Plan: kidney function at baseline. avoid nephrotoxic medications. (14) Thrombocytopenia Current Visit: Yes Status: Chronic Assessment and Plan: Possible due to liver cirrhosis. DVT Prophylaxis: Intermittent pneumatic compression for dvt prophylaxis. No chemical dvt prophy laxis due to GI bleed. - Summary of Assessment and Plan Summary of Assessment and Plan: Patient to remain in the hospital for the next 24 hours to monitor H&H. potential discharge tomorrow. - Time Spent with Patient Total time spent is greater than 50% in coordination of care (as documented) at patient's floor/unit and/or counseling patient: Greater than 35 minutes (40) Plan of Care Discussed with: nurse Internal Medicine: Result - Labs CBC & Chem 7: 01/15/19 05:32 01/15/19 05:32 Labs: Short CBC 01/14/19 01/14/19 01/14/19 Range/Units 13:13 17:31 21:50 WBC 7.1 6.3 6.3 (4.3-11.1) K/mcL Hgb 9.7 L D 9.2 L 8.7 L (11.5-15.4) g/dL Hct 29.3 L 27.2 L 25.8 L (35.3-44.9) % Plt Count 78 L 86 L 83 L (140-400) K/mcL Neutrophils # 5.5 4.6 5.0 (1.6-8.9) K/mcL 01/15/19 Range/Units 05:32 WBC 4.8 (4.3-11.1) K/mcL Hgb 8.6 L (11.5-15.4) g/dL Hct 26.1 L (35.3-44.9) % Plt Count 85 L (140-400) K/mcL Neutrophils # 3.7 (1.6-8.9) K/mcL BMP 01/15/19 05:32 Sodium 134 L Potassium 3.9 Chloride 105 Carbon Dioxide 22 L BUN 26 H Creatinine 0.94 Glucose 128 H Calcium 8.1 L - ABG Interpretation ABG results: PT/INR, D-dimer PT 15.2 Seconds (9.4-12.1) H 01/13/19 18:06 - Impressions Impressions Abdomen/Pelvis CT 01/13/19 20:33 IMPRESSION: 1. Persistent wall thickening of the stomach as well as the proximal duodenum in keeping with history of recent peptic ulcer disease. Surgical drain in the right upper quadrant has been removed with interval resolution of extraluminal gas within the abdomen. Exam is otherwise limited given lack of oral and IV contrast to evaluate for leak. 2. There has been interval improvement in mesenteric edema as well. 3. Cirrhotic morphology of the liver with stigmata of portal hypertension. D/ / 01/13/2019 20:57:14 Cristiane Stephen MD / amee Interpreting Provider: Cristiane Stephen MD Consult Discharge Plan - Plan Referrals: Sy Beaver DO [Primary Care Provider] - (2) Anemia Qualifiers: Anemia type: unspecified type Qualified Code(s): D64.9 - Anemia, unspecified (3) GI bleed Qualifiers: GI bleed type/associated pathology: unspecified gastrointestinal hemorrhage type Qualified Code(s): K92.2 - Gastrointestinal hemorrhage, unspecified (4) Cirrhosis Qualifiers: Hepatic cirrhosis type: alcoholic cirrhosis Ascites presence: without ascites Qualified Code(s): K70.30 - Alcoholic cirrhosis of liver without ascites (6) Dementia Qualifiers: Dementia type: unspecified type Dementia behavioral disturbance: without behavioral disturbance Qualified Code(s): F03.90 - Unspecified dementia without behavioral disturbance (7) Diabetes mellitus Qualifiers: Diabetes mellitus type: type 2 Diabetes mellitus group home insulin use: without food tray assembler use Diabetes mellitus complication status: without complication Qualified Code(s): E11.9 - Type 2 diabetes mellitus without complications (8) A-fib Qualifiers: Atrial fibrillation type: paroxysmal Qualified Code(s): I48.0 - Paroxysmal atrial fibrillation (9) Depression Qualifiers: Depression Type: unspecified Qualified Code(s): F32.9 - Major depressive disorder, single episode, unspecified (10) HLD (hyperlipidemia) Qualifiers: Hyperlipidemia type: pure hypercholesterolemia Qualified Code(s): E78.00 - Pure hypercholesterolemia, unspecified; E78.0 - Pure hypercholesterolemia (11) HTN (hypertension) Qualifiers: Hypertension type: essential hypertension Qualified Code(s): I10 - Essential (primary) hypertension
[2019-01-15] MEDS: traMADol 50 MG TABLET PO PRN (11:43)
[2019-01-15] MEDS ORDERED: Insulin LISPRO 300 UNITS/3 ML VIAL SQ SCH (21:00)
[2019-01-15] MEDS: Melatonin 3 MG TABLET PO PRN (21:46)
[2019-01-16] MEDS ORDERED: traMADol 50 MG TABLET PO ONE (04:12)
[2019-01-16] MEDS: Furosemide 20 MG/2 ML VIAL IVP SCH ×2 (07:31→17:06)
[2019-01-16] MEDS: Sucralfate 1 GM TABLET PO SCH ×3 (07:31→17:07)
[2019-01-16 08:05] VITALS: BP 116/65
[2019-01-16 08:11] LABS: Hematocrit 28.7 % (35.3-44.9); Hemoglobin 9.8 g/dL (11.5-15.4); Mean Corpuscular HGB Conc 34.1 g/dL (31.6-35.5); Mean Corpuscular Hemoglobin 29.6 pg (28.0-33.3); Mean Corpuscular Volume 86.7 fL (83.0-100.0); Mean Platelet Volume 9.3 fL (9.4-12.4); Platelet Count 103 K/mcL (140-400); Red Blood Count 3.31 M/mcL (3.82-4.97); Red Cell Distribution Width 14.6 % (11.5-14.5); White Blood Count 6.2 K/mcL (4.3-11.1)
[2019-01-16] MEDS: Insulin LISPRO 300 UNITS/3 ML VIAL SQ SCH ×3 (08:17→17:07)
[2019-01-16 08:29] LABS: BUN/Creatinine Ratio 22 (6-26); Blood Urea Nitrogen 19 mg/dL (8-23); Calcium 8.2 mg/dL (8.6-10.3); Carbon Dioxide 23 mEq/L (23-29); Chloride 103 mEq/L (98-107); Glucose 128 mg/dL (70-105); Magnesium 1.4 mg/dL (1.6-2.6); Osmolality,Calculated 280 (280-300); Phosphorous 3.7 mg/dL (2.7-4.5); Potassium 3.4 mEq/L (3.5-5.1); Sodium 133 mEq/L (136-145); eGFR For African Americans > 60 (> 60); eGFR For Non-African Americans > 60 (> 60)
[2019-01-16 08:43] LABS: Eosinophils # 0.4 K/mcL (0.0-0.6); Lymphocytes # 0.3 K/mcL (0.6-4.6); Monocytes # 0.4 K/mcL (0.0-1.3); Neutrophils # 5.2 K/mcL (1.6-8.9)
[2019-01-16 08:44] LABS: Anisocytosis 1+ (Not Present); Platelet Estimate Decreased (Normal)
--- NOTE | 2019-01-16 09:45 | Discharge Summary ---
Orders not resulted at time of discharge: Pending orders 01/13/19 17:55 Culture,Blood [BC] Stat 01/14/19 10:26 Surgical Pathology [PTH] Routine Date of Encounter: 01/16/19 Time of Encounter: 09:40 - Discharge Diagnosis (1) PUD (peptic ulcer disease) Priority: Primary Status: Chronic Assessment and Plan: s/p EGD: Stomach looks okay, pyloric ulcer noted, with suture material, consistent with recent procedure. No bleeding from this area. Shallow, somewhat broad-based ulcer noted in the duodenal bulb, no bleeding visible vessels noted. No clot. Esophagitis. (2) Anemia Priority: Secondary Status: Chronic Assessment and Plan: Acute blood lost anemia Qualifiers: Anemia type: unspecified type Qualified Code(s): D64.9 - Anemia, unspecified (3) GI bleed Priority: Secondary Status: Resolved Qualifiers: GI bleed type/associated pathology: unspecified gastrointestinal hemorrhage type Qualified Code(s): K92.2 - Gastrointestinal hemorrhage, unspecified (4) Cirrhosis Priority: Secondary Status: Chronic Qualifiers: Hepatic cirrhosis type: alcoholic cirrhosis Ascites presence: without ascites Qualified Code(s): K70.30 - Alcoholic cirrhosis of liver without ascites (5) Perforated ulcer Priority: Secondary Status: Chronic (6) Dementia Priority: Secondary Status: Chronic Qualifiers: Dementia type: unspecified type Dementia behavioral disturbance: without behavioral disturbance Qualified Code(s): F03.90 - Unspecified dementia without behavioral disturbance (7) Diabetes mellitus Priority: Secondary Status: Chronic Qualifiers: Diabetes mellitus type: type 2 Diabetes mellitus half-way insulin use: without half-way use Diabetes mellitus complication status: without complication Qualified Code(s): E11.9 - Type 2 diabetes mellitus without complications (8) A-fib Priority: Secondary Status: Acute Qualifiers: Atrial fibrillation type: paroxysmal Qualified Code(s): I48.0 - Paroxysmal atrial fibrillation (9) Depression Priority: Secondary Status: Chronic Qualifiers: Depression Type: unspecified Qualified Code(s): F32.9 - Major depressive disorder, single episode, unspecified (10) HLD (hyperlipidemia) Priority: Secondary Status: Chronic Qualifiers: Hyperlipidemia type: pure hypercholesterolemia Qualified Code(s): E78.00 - Pure hypercholesterolemia, unspecified; E78.0 - Pure hypercholesterolemia (11) HTN (hypertension) Priority: Secondary Status: Chronic Qualifiers: Hypertension type: essential hypertension Qualified Code(s): I10 - Essential (primary) hypertension (12) Hypomagnesemia Priority: Secondary Status: Acute (13) CKD (chronic kidney disease), stage I Priority: Secondary Status: Chronic (14) Thrombocytopenia Priority: Secondary Status: Chronic Hospital course: Ms. Nieto is a 78 year old female PMH dementia, DM, HLD, HTN and recent duodenal ulcer perforation on 12/10/18 s/p exploratory laparotomy with, repair of perforated pyloric ulcer with Mamadou patch. Patient was sent today to the hospital from long-term due passing dark stool. Patient admitted to the hospital due to GI bleed. Transfuse 1 unit of packed RBC, GI consulted. And patient underwent EGD: LA grade B esophagitis with no bleeding was found. Normal mucosa was found the entire stomach. Nonbleeding gastric ulcer with non stigmata bleeding. H&H has remained stable post transfusion. And patient is hemodynamically stable to be discharged. Patient's son POA requested patient to be discharged home with home health. - Time Spent with Patient Total time spent providing and/or coordinating discharge services: Time spent: Greater than 30 minutes (35) - Discharge Medications Prescriptions: New Ferrous Sulfate 325 mg PO BIDWM 30 Days #60 tablet Continued Sucralfate [Carafate] 1 gm PO QIDAC Amitriptyline [Elavil] 10 mg PO HS Escitalopram [Lexapro] 20 mg PO DAILY Simvastatin [Zocor] 20 mg PO HS Oxycodone HCl/Acetaminophen [Percocet 10-325 mg Tablet] 1 tab PO Q8H PRN PRN Reason: Pain Furosemide [Lasix] 20 mg PO BID #60 tablet Donepezil HCl [Aricept] 10 mg PO HS Potassium Chloride [K-Tab ER] 10 meq PO BID Metoprolol [Lopressor] 25 mg PO BID Acetaminophen [Tylenol] 650 mg PO Q6HR PRN tablet PRN Reason: Fever/mild pain Omeprazole [PriLOSEC] 20 mg PO BIDAC capsule. Docusate [Colace] 100 mg PO DAILY PRN PRN Reason: Constipation Furosemide [Lasix] 40 mg PO DAILY MDD for 3 days stop date 01.14.19 LORazepam [Ativan] 0.5 mg PO Q6H PRN PRN Reason: Anxiety MOM Conc [MILK OF MAGNESIA conc] 30 ml PO DAILY PRN PRN Reason: Constipation Ondansetron HCl 4 mg PO Q8H PRN PRN Reason: Nausea Discontinued cefTRIAXone [Rocephin] 1,000 mg IVPB DAILY MDD for 3 days 01.13.19 start date Levofloxacin [Levaquin] 500 mg PO DAILY Home Medications: Amitriptyline [Elavil] 10 mg PO HS 07/04/16 [History] Escitalopram [Lexapro] 20 mg PO DAILY 07/04/16 [History] Oxycodone HCl/Acetaminophen [Percocet 10-325 mg Tablet] 1 tab PO Q8H PRN 07/04/16 [History] Simvastatin [Zocor] 20 mg PO HS 07/04/16 [History] Sucralfate [Carafate] 1 gm PO QIDAC 07/04/16 [History] Furosemide [Lasix] 20 mg PO BID #60 tablet 11/16/17 [Rx] Donepezil HCl [Aricept] 10 mg PO HS 01/23/18 [History] Potassium Chloride [K-Tab ER] 10 meq PO BID 07/11/18 [History] Metoprolol [Lopressor] 25 mg PO BID 12/19/18 [History] Acetaminophen [Tylenol] 650 mg PO Q6HR PRN tablet 12/26/18 [Rx] Omeprazole [PriLOSEC] 20 mg PO BIDAC capsule. 12/26/18 [Rx] Docusate [Colace] 100 mg PO DAILY PRN 01/14/19 [History] Furosemide [Lasix] 40 mg PO DAILY MDD for 3 days stop date 01.14.19 01/14/19 [History] LORazepam [Ativan] 0.5 mg PO Q6H PRN 01/14/19 [History] MOM Conc [MILK OF MAGNESIA conc] 30 ml PO DAILY PRN 01/14/19 [History] Ondansetron HCl 4 mg PO Q8H PRN 01/14/19 [History] Ferrous Sulfate 325 mg PO BIDWM 30 Days #60 tablet 01/16/19 [Rx] Allergies/Adverse Reactions: Allergy/AdvReac Type Severity Reaction Status Date / Time haloperidol Allergy Hallucinati Verified 01/14/19 12:57 ng Date of admission: 01/14/19 11:34 Primary care physician: Brayan Beaver DO Consults: 01/13/19 17:48 Consult to Gastroenterology [CONS] Routine Consulting Provider: Gastroenterology Bekah Reason for Consult: drak stool Call Completed: Yes 01/13/19 22:32 Consult to Nutrition [CONS] Routine Comment: Consulting Provider: NUTRITION Reason for Dietary Consult: MST Score Consult to Solder Technician [CONS] Routine Reason for SW Consult: Family request different ECF placement. 01/15/19 09:04 Consult to Physical Therapy [CONS] Routine Comment: Evaluate, develop and implement POC Reason for Consult: generalized weakness Does patient have active BEDREST order?: No Is patient medically & hemodynamically stable?: Yes 01/15/19 09:05 Consult to Occupational Therapy [CONS] Routine Comment: Evaluate, develop and implement POC Reason for Consult: generalized weakness Does patient have active BEDREST order?: No Is patient medically & hemodynamically stable?: Yes - Constitutional Vitals: Temp Pulse Resp BP Pulse Ox 97.8 F 69 14 116/65 92 01/16/19 08:03 01/16/19 08:03 01/16/19 08:03 01/16/19 08:03 01/16/19 08:03 General appearance: Present: cooperative, disheveled, A&O X 2, pleasant, no acute distress, answers questions appropriately Exam: Vitals: Reviewed General: Alert and oriented x4. In no distress Cardiovascular: irregularly, irregular, normal S1 & S2, no rubs, murmurs or gallops. Lungs: no wheezes or crackles, mild b/l rales at the bases. Abdomen: Soft, non-tender, no rigidity. NABS in all 4 quadrants. Extremities: No edema. Neurological: No focal neurological abnormalities. Rest of the physical exam is non contributory - Patient Status Disposition: Home Health Service Condition: Fair Functional capacity at discharge: uses cane/walker Overall status at discharge: patient is progressing back to baseline - Discharge Instructions Follow Up With: Sy Beaver DO [Primary Care Provider] - Rosa Stallworth MD [Partnered Physician] - - Diet and Activity Activity: as per physical therapy Diet: advance to your usual diet
--- NOTE | 2019-01-16 09:53 | Physician Discharge Referral ---
Home Health/Hosp Referral Info Transfer to: Home Health - Diagnosis (1) PUD (peptic ulcer disease) Priority: Primary Status: Chronic (2) Anemia Priority: Secondary Status: Chronic (3) GI bleed Priority: Secondary Status: Resolved (4) Cirrhosis Priority: Secondary Status: Chronic (5) Perforated ulcer Priority: Secondary Status: Chronic (6) Dementia Priority: Secondary Status: Chronic (7) Diabetes mellitus Priority: Secondary Status: Chronic (8) A-fib Priority: Secondary Status: Acute (9) Depression Priority: Secondary Status: Chronic (10) HLD (hyperlipidemia) Priority: Secondary Status: Chronic (11) HTN (hypertension) Priority: Secondary Status: Chronic (12) Hypomagnesemia Priority: Secondary Status: Acute (13) CKD (chronic kidney disease), stage I Priority: Secondary Status: Chronic (14) Thrombocytopenia Priority: Secondary Status: Chronic - Respiratory Orders None Smoking Cessation: Smoking cessation has been advised. For more information, call the [place] Tobacco Quit Line at 9-634-IJCY-NOW. - Diet/Nutrition Diet/Nutrition Orders: Regular - Activity Activity Orders: Walker - Services Needed Following services are medically necessary services: Nursing, Home Health Aide, Physical Therapy, Occupational Therapy, Med Social Work - Transfer Medications Prescriptions: Ferrous Sulfate 325 mg PO BIDWM 30 Days #60 tablet Transmission Status: Pending to [facility] Home Medications: Amitriptyline [Elavil] 10 mg PO HS 07/04/16 [History] Escitalopram [Lexapro] 20 mg PO DAILY 07/04/16 [History] Oxycodone HCl/Acetaminophen [Percocet 10-325 mg Tablet] 1 tab PO Q8H PRN 07/04/16 [History] Simvastatin [Zocor] 20 mg PO HS 07/04/16 [History] Sucralfate [Carafate] 1 gm PO QIDAC 07/04/16 [History] Furosemide [Lasix] 20 mg PO BID #60 tablet 11/16/17 [Rx] Donepezil HCl [Aricept] 10 mg PO HS 01/23/18 [History] Potassium Chloride [K-Tab ER] 10 meq PO BID 07/11/18 [History] Metoprolol [Lopressor] 25 mg PO BID 12/19/18 [History] Acetaminophen [Tylenol] 650 mg PO Q6HR PRN tablet 12/26/18 [Rx] Omeprazole [PriLOSEC] 20 mg PO BIDAC capsule. 12/26/18 [Rx] Docusate [Colace] 100 mg PO DAILY PRN 01/14/19 [History] Furosemide [Lasix] 40 mg PO DAILY MDD for 3 days stop date 01.14.19 01/14/19 [History] LORazepam [Ativan] 0.5 mg PO Q6H PRN 01/14/19 [History] MOM Conc [MILK OF MAGNESIA conc] 30 ml PO DAILY PRN 01/14/19 [History] Ondansetron HCl 4 mg PO Q8H PRN 01/14/19 [History] Ferrous Sulfate 325 mg PO BIDWM 30 Days #60 tablet 01/16/19 [Rx] Allergies/Adverse Reactions: Allergy/AdvReac Type Severity Reaction Status Date / Time haloperidol Allergy Hallucinati Verified 01/14/19 12:57 ng Certification: Further, I certify that my clinical findings support that this patient is homebound (i.e. absences from home require considerable and taxing effort and are for medical reasons or evangelical services or infrequently or short duration when for other reasons) because: Homebound Reason: Patient requires assistance of a person or device to safely leave home Attestation: My signature below is to certify that this patient is under my care and that I, or nurse practitioner, or a physician's teachers assistant working with me, has a [id number] encounter with this patient.
[2019-01-16] MEDS: traMADol 50 MG TABLET PO PRN ×3 (11:34→17:13)
== END 2019-01-16 18:41 | disposition home health service (06) | DRG 378 ==
LOC: 3ANU 13:38 → EMEROOARM 13:38 → 3ANU 18:21 → SUATTDRO 01-14 11:34
PROVIDERS: ADMIT Internal Medicine; ATTEND Internal Medicine
PROC: ENDOEBX (2019-01-14 09:45)

== ENCOUNTER 2019-11-18 22:39 | Inpatient (IN) ==
[2019-11-18] MEDS ORDERED: Isovue-370 500 ML BOTTLE IVP ONE (23:37)
[2019-11-18 23:51] LABS: Basophils % 0.9 %; Eosinophils % 1.3 %; Hematocrit 24.2 % (35.3-44.9); Hemoglobin 7.4 g/dL (11.5-15.4); Immature Granulocytes % 0.4 % (0-4); Lymphocytes # 0.3 K/mcL (0.6-4.6); Lymphocytes % 11.1 %; Mean Corpuscular HGB Conc 30.6 g/dL (31.6-35.5); Mean Corpuscular Hemoglobin 24.5 pg (28.0-33.3); Mean Corpuscular Volume 80.1 fL (83.0-100.0); Mean Platelet Volume 9.3 fL (9.4-12.4); Monocytes # 0.3 K/mcL (0.0-1.3); Monocytes % 10.6 %; Neutrophils # 1.8 K/mcL (1.6-8.9); Platelet Count 100 K/mcL (140-400); Red Blood Count 3.02 M/mcL (3.82-4.97); Red Cell Distribution Width 21.8 % (11.5-14.5); Segmented Neutrophils % 75.7 %; White Blood Count 2.4 K/mcL (4.3-11.1)
[2019-11-19 00:01] LABS: Albumin 2.7 g/dL (3.5-5.7); Albumin/Globulin Ratio 0.7 (1.1-2.2); Bilirubin,Direct 0.2 mg/dL (0.0-0.2); Bilirubin,Indirect 0.3 mg/dL (0.0-1.0); Bilirubin,Total 0.5 mg/dL (0.3-1.0); Calcium 8.1 mg/dL (8.6-10.3); Globulin 4.1 g/dL (2.4-3.5); Potassium 4.3 mEq/L (3.5-5.1); Total Protein 6.8 g/dL (6.4-8.9)
[2019-11-19 00:16] LABS: INR 1.2; Prothrombin Time 13.8 Seconds (9.4-12.1)
[2019-11-19 00:18] LABS: Activated Partial Thrombo Time 31.7 Seconds (26.0-36.0)
[2019-11-19 01:09] LABS: Bacteria,Urine Moderate per hpf (None-Few); Bilirubin,Urine Negative (Negative); Blood,Urine Trace (Negative); Clarity,Urine Turbid (Clear); Color,Urine Light-Yellow (Yellow); Glucose,Urine (UA) Normal (Normal); Ketones,Urine Negative (Negative); Leukocyte Esterase,Urine Large (Negative); Mucus,Urine Few per lpf (None-Few); Nitrite,Urine Positive (Negative); Protein,Urine Negative (Neg-Trace); RBC,Urine 0-3 per hpf (0-3); Specific Gravity,Urine 1.013 (1.010-1.025); Squamous Epithelial Cell,Urine Few per hpf (None-Few); Urobilinogen,Urine Normal (Normal); WBC,Urine TNTC per hpf (0-3)
[2019-11-19] MEDS ORDERED: cefTRIAXone 1,000 MG in Water for inj. (sterile) 10 ML IVP ONE ×2 (01:38→02:23)
[2019-11-19 03:36] LABS: Adenovirus Not Detected (Not Detect); Bordetella Pertussis Not Detected (Not Detect); Chlamydophila pneumoniae Not Detected (Not Detect); Coronavirus 229E Not Detected (Not Detect); Coronavirus HKU1 Not Detected (Not Detect); Coronavirus NL63 Not Detected (Not Detect); Coronavirus OC43 Not Detected (Not Detect); Human Metapneumovirus Not Detected (Not Detect); Human Rhinovirus/Enterovirus Not Detected (Not Detect); Influenza A Subtype 2009 H1 Not Detected (Not Detect); Influenza B Not Detected (Not Detect); Mycoplasma pneumoniae Not Detected (Not Detect); Parainfluenza Virus 1 Not Detected (Not Detect); Parainfluenza Virus 2 Not Detected (Not Detect); Parainfluenza Virus 3 Not Detected (Not Detect); Parainfluenza Virus 4 Not Detected (Not Detect); Respiratory Syncytial Virus Not Detected (Not Detect)
[2019-11-19] MEDS ORDERED: *HR* OxyCODONE/APAP 5/325 TABLET PO ONE (04:14)
[2019-11-19] MEDS ORDERED: Naloxone 0.4 MG/ML INJ IVP PRN (06:24)
[2019-11-19] MEDS ORDERED: D5% in Water 1,000 ML IVC PRN (06:31)
[2019-11-19] MEDS ORDERED: Dextrose Gel 15 GM/37.5 ML TUBE PO PRN ×2 (06:31)
[2019-11-19] MEDS ORDERED: *HR* Dextrose 50 % in Water (Vial) 50 ML VIAL IVP PRN (06:31)
[2019-11-19 07:44] LABS: Hemoglobin 7.1 g/dL (11.5-15.4); Immature Granulocytes % 0.5 % (0-4)
[2019-11-19 07:46] LABS: Hematocrit 23.4 % (35.3-44.9); Immature Platelets 1.5 % (1.1-6.1); Lymphocytes # 0.3 K/mcL (0.6-4.6); Mean Corpuscular HGB Conc 30.3 g/dL (31.6-35.5); Mean Corpuscular Hemoglobin 24.3 pg (28.0-33.3); Mean Corpuscular Volume 80.1 fL (83.0-100.0); Mean Platelet Volume 9.1 fL (9.4-12.4); Monocytes # 0.2 K/mcL (0.0-1.3); Neutrophils # 1.4 K/mcL (1.6-8.9); Red Blood Count 2.92 M/mcL (3.82-4.97); Red Cell Distribution Width 21.8 % (11.5-14.5); Segmented Neutrophils % 69.5 %
[2019-11-19 07:52] LABS: INR 1.3; Prothrombin Time 14.9 Seconds (9.4-12.1)
[2019-11-19 07:55] LABS: Platelet Count 92 K/mcL (140-400)
[2019-11-19 08:01] LABS: Albumin 2.6 g/dL (3.5-5.7); Albumin/Globulin Ratio 0.7 (1.1-2.2); Bilirubin,Total 0.6 mg/dL (0.3-1.0); Calcium 7.8 mg/dL (8.6-10.3); Globulin 3.9 g/dL (2.4-3.5); Magnesium 1.7 mg/dL (1.6-2.6); Total Protein 6.5 g/dL (6.4-8.9)
[2019-11-19 08:55] LABS: Estimated Average Glucose 111 mg/dl
[2019-11-19] MEDS ORDERED: cefTRIAXone 1,000 MG in Water for inj. (sterile) 10 ML IVP SCH ×2 (09:00→21:00)
[2019-11-19] MEDS: Insulin LISPRO 300 UNITS/3 ML VIAL SQ SCH ×4 (09:31→20:06)
[2019-11-19 14:46] LABS: Hematocrit 24.5 % (35.3-44.9); Hemoglobin 7.4 g/dL (11.5-15.4)
[2019-11-19] MEDS: Albumin 25% 25gram/100mL 25 GM/100 ML IV.SOLN IVC SCH ×2 (20:04→21:55)
[2019-11-19] MEDS: Lactulose Oral Soln 20 GM/30 ML UDC PO SCH (20:05)
[2019-11-19 21:02] LABS: Hemoglobin 7.2 g/dL (11.5-15.4)
[2019-11-19] MEDS: Melatonin 3 MG TABLET PO PRN (22:43)
[2019-11-20 02:45] LABS: Hematocrit 22.7 % (35.3-44.9); Immature Platelets 1.5 % (1.1-6.1); Mean Corpuscular HGB Conc 30.8 g/dL (31.6-35.5); Mean Corpuscular Volume 81.1 fL (83.0-100.0); Mean Platelet Volume 8.9 fL (9.4-12.4); Red Blood Count 2.8 M/mcL (3.82-4.97); Red Cell Distribution Width 21.7 % (11.5-14.5); White Blood Count 1.9 K/mcL (4.3-11.1)
[2019-11-20 03:03] LABS: Calcium 7.9 mg/dL (8.6-10.3); Potassium 4.1 mEq/L (3.5-5.1)
[2019-11-20 03:28] LABS: Folate > 22.3 ng/mL (3.0-16.0); Vitamin B12 425 pg/mL (250-1100)
[2019-11-20] MEDS: Lactulose Oral Soln 20 GM/30 ML UDC PO SCH ×2 (08:18→20:45)
[2019-11-20] MEDS: Insulin LISPRO 300 UNITS/3 ML VIAL SQ SCH ×4 (08:18→20:37)
[2019-11-20] MEDS: Acetaminophen 325 MG TABLET PO PRN ×2 (08:18→20:45)
[2019-11-20 08:21] LABS: Hematocrit 21.1 % (35.3-44.9); Hemoglobin 6.6 g/dL (11.5-15.4)
[2019-11-20] MEDS ORDERED: 0.9 % Sodium Chloride 250 ML IVC SCH (11:15)
[2019-11-20 12:05] LABS: Hematocrit 22.4 % (35.3-44.9); Hemoglobin 6.9 g/dL (11.5-15.4)
[2019-11-20] MEDS ORDERED: Albumin 25% 25gram/100mL 25 GM/100 ML IV.SOLN IVPB ONE ×2 (15:57→15:58)
[2019-11-20] MEDS: Ertapenem 1,000 MG in 0.9 % Sodium Chloride Mini Bag 100 ML IVPB SCH (16:01)
[2019-11-20 16:59] LABS: RBC,Peritoneal Fluid < 2000 RBC/mcL
[2019-11-20] MEDS: Albumin 25% 25gram/100mL 25 GM/100 ML IV.SOLN IVC SCH ×3 (17:21→20:48)
[2019-11-20 17:30] LABS: Hematocrit 26.3 % (35.3-44.9); Hemoglobin 8.2 g/dL (11.5-15.4)
[2019-11-20 18:34] LABS: Basophils,Peritoneal Fluid 0 %; Eosinophils,Peritoneal Fluid 0 %
[2019-11-20 18:35] LABS: Appearance of Peritoneal Fl CLOUDY (Clear)
[2019-11-20] MEDS ORDERED: *HR* LORazepam 2 MG/ML VIAL IVP ONE (20:13)
[2019-11-20] MEDS: Melatonin 3 MG TABLET PO PRN (20:45)
[2019-11-21 01:14] LABS: Hematocrit 28.7 % (35.3-44.9); Hemoglobin 9.2 g/dL (11.5-15.4)
[2019-11-21] MEDS ORDERED: *HR* LORazepam 2 MG/ML VIAL IVP ONE (03:00)
[2019-11-21 07:09] LABS: Calcium 7.8 mg/dL (8.6-10.3); Potassium 4.1 mEq/L (3.5-5.1)
[2019-11-21] MEDS: Insulin LISPRO 300 UNITS/3 ML VIAL SQ SCH ×4 (08:03→20:50)
[2019-11-21] MEDS: Furosemide 20 MG TABLET PO SCH (11:00)
[2019-11-21] MEDS: Ertapenem 1,000 MG in 0.9 % Sodium Chloride Mini Bag 100 ML IVPB SCH (11:00)
[2019-11-21] MEDS: Lactulose Oral Soln 20 GM/30 ML UDC PO SCH ×2 (11:00→20:55)
[2019-11-21] MEDS: Acetaminophen 325 MG TABLET PO PRN (20:54)
[2019-11-21] MEDS: Melatonin 3 MG TABLET PO PRN (20:55)
[2019-11-21] MEDS: Ciprofloxacin/Dex *EAR* Susp 7.5 ML BOTTLE BOTH EARS SCH (20:55)
[2019-11-22] MEDS ORDERED: *HR* LORazepam 2 MG/ML VIAL IVP ONE (01:10)
[2019-11-22 02:29] LABS: Hemoglobin 8.7 g/dL (11.5-15.4)
[2019-11-22 02:31] LABS: Hematocrit 27.3 % (35.3-44.9); Immature Platelets 1.4 % (1.1-6.1); Mean Corpuscular HGB Conc 31.9 g/dL (31.6-35.5); Mean Corpuscular Hemoglobin 25.7 pg (28.0-33.3); Mean Corpuscular Volume 80.8 fL (83.0-100.0); Mean Platelet Volume 9.6 fL (9.4-12.4); Red Blood Count 3.38 M/mcL (3.82-4.97); White Blood Count 2.1 K/mcL (4.3-11.1)
[2019-11-22 02:50] LABS: Potassium 3.7 mEq/L (3.5-5.1)
[2019-11-22] MEDS: Acetaminophen 325 MG TABLET PO PRN (06:35)
[2019-11-22] MEDS: Insulin LISPRO 300 UNITS/3 ML VIAL SQ SCH ×2 (08:04→12:12)
[2019-11-22] MEDS: Ertapenem 1,000 MG in 0.9 % Sodium Chloride Mini Bag 100 ML IVPB SCH (08:13)
[2019-11-22] MEDS: Lactulose Oral Soln 20 GM/30 ML UDC PO SCH (08:13)
[2019-11-22] MEDS: Furosemide 20 MG TABLET PO SCH (08:13)
[2019-11-22] MEDS: Ciprofloxacin/Dex *EAR* Susp 7.5 ML BOTTLE BOTH EARS SCH (08:13)
[2019-11-22 10:36] VITALS: BP 125/63
[2019-11-22 13:28] LABS: Fluid Source for Albumin PERITON/ASCITES
== END 2019-11-22 15:40 | disposition home health service (06) | DRG 690 ==
LOC: ICNU 22:39 → EMEROOARM 22:39 → ICNU 11-19 05:50 → 3BNU 11-19 17:46 → SUATTDRO 11-20 13:47
PROVIDERS: ADMIT Internal Medicine; ATTEND Internal Medicine

== ENCOUNTER 2020-01-15 02:35 | Inpatient (IN) ==
[2020-01-15 03:27] LABS: Bacteria,Urine Few per hpf (None-Few); Bilirubin,Urine Negative (Negative); Blood,Urine Negative (Negative); Clarity,Urine Clear (Clear); Color,Urine Light-Yellow (Yellow); Glucose,Urine (UA) Normal (Normal); Hyaline Casts,Urine Few per lpf (None Seen); Ketones,Urine Negative (Negative); Leukocyte Esterase,Urine Moderate (Negative); Mucus,Urine Few per lpf (None-Few); Nitrite,Urine Negative (Negative); PH,Urine 5.5 pH Units (5.0-8.0); Protein,Urine Negative (Neg-Trace); RBC,Urine 0-3 per hpf (0-3); Squamous Epithelial Cell,Urine Few per hpf (None-Few); Urobilinogen,Urine Normal (Normal); WBC,Urine 15-30 per hpf (0-3)
[2020-01-15 03:39] LABS: Hemoglobin 8.6 g/dL (11.5-15.4); Immature Granulocytes % 0.4 % (0-4); White Blood Count 2.8 K/mcL (4.3-11.1)
[2020-01-15 03:41] LABS: Basophils % 0.7 %; Eosinophils # 0.1 K/mcL (0.0-0.6); Eosinophils % 2.9 %; Hematocrit 26.8 % (35.3-44.9); Immature Platelets 1.4 % (1.1-6.1); Lymphocytes # 0.5 K/mcL (0.6-4.6); Lymphocytes % 16.5 %; Mean Corpuscular HGB Conc 32.1 g/dL (31.6-35.5); Mean Corpuscular Hemoglobin 27.9 pg (28.0-33.3); Mean Platelet Volume 9.6 fL (9.4-12.4); Monocytes # 0.4 K/mcL (0.0-1.3); Monocytes % 14.3 %; Neutrophils # 1.8 K/mcL (1.6-8.9); Red Blood Count 3.08 M/mcL (3.82-4.97); Red Cell Distribution Width 17.8 % (11.5-14.5); Segmented Neutrophils % 65.2 %
[2020-01-15 03:44] LABS: Platelet Count 65 K/mcL (140-400)
[2020-01-15 03:48] LABS: Amphetamine Screen,Urine Negative ng/mL (Cutoff=1000); Barbiturate Screen,Urine Negative ng/mL (Cutoff=200); Benzodiazepines Screen,Urine Negative ng/mL (Cutoff=200); Cannabinoid Screen,Urine Negative ng/mL (Cutoff = 50); Cocaine Screen,Urine Negative ng/mL (Cutoff= 300); Opiate Screen,Urine Negative ng/mL (Cutoff=300); Phencyclidine Screen,Urine Negative ng/mL (Cutoff=25)
[2020-01-15 03:51] LABS: INR 1.3; Prothrombin Time 14.4 Seconds (9.4-12.1)
[2020-01-15 03:54] LABS: Activated Partial Thrombo Time 34.3 Seconds (26.0-36.0)
[2020-01-15 04:08] LABS: Alanine Aminotransferase 23 Units/L (7-52); Albumin 3.2 g/dL (3.5-5.7); Albumin/Globulin Ratio 0.8 (1.1-2.2); Alkaline Phosphatase 128 Units/L (34-104); Aspartate Amino Transferase 33 Units/L (13-39); BUN/Creatinine Ratio 23 (6-26); Bilirubin,Direct 0.3 mg/dL (0.0-0.2); Bilirubin,Indirect 0.7 mg/dL (0.0-1.0); Blood Urea Nitrogen 33 mg/dL (8-23); Carbon Dioxide 28 mEq/L (23-29); Chloride 100 mEq/L (98-107); Creatine Kinase 36 Units/L (30-223); Ethanol < 10 mg/dL (Less than 10); Glucose 116 mg/dL (70-105); Osmolality,Calculated 286 (280-300); Potassium 4.8 mEq/L (3.5-5.1); Sodium 134 mEq/L (136-145); Total Protein 7.2 g/dL (6.4-8.9); eGFR For African Americans 42 (> 60); eGFR For Non-African Americans 34 (> 60)
[2020-01-15 05:05] LABS: Troponin I < 0.03 ng/mL (< 0.04)
[2020-01-15] MEDS ORDERED: *HR* LORazepam 2 MG/ML VIAL IVP ONE (05:22)
[2020-01-15] MEDS ORDERED: *HR* LORazepam 2 MG/ML VIAL IM ONE (05:39)
[2020-01-15] MEDS ORDERED: Naloxone 0.4 MG/ML INJ IVP PRN (08:05)
[2020-01-15] MEDS ORDERED: *HR* OxyCODONE/APAP 10/325 TABLET PO PRN (08:06)
[2020-01-15] MEDS ORDERED: Haloperidol Lactate 5 MG/ML VIAL IVP PRN (09:55)
[2020-01-15] MEDS: lisinopriL 10 MG TABLET PO SCH (11:32)
[2020-01-15] MEDS: Sucralfate 1 GM TABLET PO SCH ×3 (11:32→21:12)
[2020-01-15] MEDS: Furosemide 20 MG TABLET PO SCH (11:33)
[2020-01-15] MEDS: Lactulose Oral Soln 20 GM/30 ML UDC PO SCH ×2 (11:33→21:18)
[2020-01-15] MEDS: Ertapenem 1,000 MG in 0.9 % Sodium Chloride Mini Bag 100 ML IVPB SCH (14:43)
[2020-01-16 05:41] LABS: Basophils % 0.7 %; Immature Granulocytes % 0.7 % (0-4)
[2020-01-16 05:43] LABS: Eosinophils # 0.1 K/mcL (0.0-0.6); Eosinophils % 2.7 %; Hematocrit 26.4 % (35.3-44.9); Hemoglobin 8.6 g/dL (11.5-15.4); Immature Platelets 1.8 % (1.1-6.1); Lymphocytes # 0.5 K/mcL (0.6-4.6); Lymphocytes % 15.6 %; Mean Corpuscular HGB Conc 32.6 g/dL (31.6-35.5); Mean Corpuscular Hemoglobin 28.5 pg (28.0-33.3); Mean Corpuscular Volume 87.4 fL (83.0-100.0); Mean Platelet Volume 8.5 fL (9.4-12.4); Monocytes # 0.3 K/mcL (0.0-1.3); Monocytes % 11.2 %; Red Blood Count 3.02 M/mcL (3.82-4.97); Red Cell Distribution Width 17.9 % (11.5-14.5); Segmented Neutrophils % 69.1 %
[2020-01-16 05:44] LABS: Neutrophils # 2.1 K/mcL (1.6-8.9); Platelet Count 61 K/mcL (140-400)
[2020-01-16 06:00] LABS: Calcium 9.2 mg/dL (8.6-10.3); Potassium 4.1 mEq/L (3.5-5.1)
[2020-01-16] MEDS: Lactulose Oral Soln 20 GM/30 ML UDC PO SCH ×2 (09:21→20:43)
[2020-01-16] MEDS: Sucralfate 1 GM TABLET PO SCH ×4 (09:30→20:42)
[2020-01-16] MEDS: lisinopriL 10 MG TABLET PO SCH (09:31)
[2020-01-16] MEDS: Furosemide 20 MG TABLET PO SCH (09:31)
[2020-01-16] MEDS: Ertapenem 1,000 MG in 0.9 % Sodium Chloride Mini Bag 100 ML IVPB SCH (14:43)
[2020-01-16] MEDS: *HR* LORazepam 0.5 MG TABLET PO PRN (20:42)
[2020-01-17 05:12] LABS: Albumin/Globulin Ratio 0.8 (1.1-2.2); Bilirubin,Total 0.7 mg/dL (0.3-1.0); Calcium 9.1 mg/dL (8.6-10.3); Globulin 3.9 g/dL (2.4-3.5); Potassium 4.5 mEq/L (3.5-5.1); Total Protein 6.9 g/dL (6.4-8.9)
[2020-01-17 05:19] LABS: Basophils % 0.5 %; Immature Granulocytes % 0.5 % (0-4)
[2020-01-17 05:20] LABS: Eosinophils # 0.1 K/mcL (0.0-0.6); Eosinophils % 2.4 %; Hemoglobin 8.8 g/dL (11.5-15.4); Immature Platelets 2.9 % (1.1-6.1); Lymphocytes # 0.5 K/mcL (0.6-4.6); Lymphocytes % 13.6 %; Mean Corpuscular HGB Conc 31.4 g/dL (31.6-35.5); Mean Corpuscular Hemoglobin 27.8 pg (28.0-33.3); Mean Corpuscular Volume 88.3 fL (83.0-100.0); Mean Platelet Volume 10.5 fL (9.4-12.4); Monocytes # 0.4 K/mcL (0.0-1.3); Monocytes % 10.8 %; Red Blood Count 3.17 M/mcL (3.82-4.97); Red Cell Distribution Width 17.7 % (11.5-14.5); Segmented Neutrophils % 72.2 %; White Blood Count 3.8 K/mcL (4.3-11.1)
[2020-01-17 05:21] LABS: Neutrophils # 2.7 K/mcL (1.6-8.9); Platelet Count 62 K/mcL (140-400)
[2020-01-17] MEDS: Furosemide 20 MG TABLET PO SCH (09:04)
[2020-01-17] MEDS: Sucralfate 1 GM TABLET PO SCH ×4 (09:04→22:32)
[2020-01-17] MEDS: Lactulose Oral Soln 20 GM/30 ML UDC PO SCH ×2 (09:05→22:32)
[2020-01-17 13:09] LABS: Adenovirus F 40/41 PCR Not detected (Not detect); Astrovirus PCR Not detected (Not detect); C.difficile Toxin A/B Gene PCR Not detected (Not detect); Campylobacter by PCR Not detected (Not detect); Cryptosporidium by PCR Not detected (Not detect); Cyclospora cayetanensis PCR Not detected (Not detect); E. coli O157 by PCR Not detected (Not detect); Entamoeba histolytica PCR Not detected (Not detect); Enteroaggregative E.coli(EAEC) Not detected (Not detect); Enteropathogenic E.coli(EPEC) Not detected (Not detect); Enterotoxigenic E.coli (ETEC) Not detected (Not detect); Giardia lamblia PCR Not detected (Not detect); Norovirus GI/GII PCR Not detected (Not detect); Plesiomonas shigelloides PCR Not detected (Not detect); Rotavirus A PCR Not detected (Not detect); Salmonella PCR Not detected (Not detect); Sapovirus PCR Not detected (Not detect); Shig/EnteroinvasiveE coli EIEC Not detected (Not detect); Shigalike tox-prod E coli STEC Not detected (Not detect); Vibrio PCR Not detected (Not detect); Vibrio cholerae PCR Not detected (Not detect); Yersinia enterocolitica PCR Not detected (Not detect)
[2020-01-17] MEDS: cefTRIAXone 1,000 MG in Water for inj. (sterile) 10 ML IVP SCH (16:32)
[2020-01-17] MEDS ORDERED: Prochlorperazine 10 MG/2 ML VIAL IVP PRN (21:14)
[2020-01-17] MEDS: *HR* LORazepam 0.5 MG TABLET PO PRN (22:32)
[2020-01-18 06:01] LABS: Basophils % 0.6 %; Eosinophils # 0.1 K/mcL (0.0-0.6); Eosinophils % 2.8 %; Hematocrit 27.7 % (35.3-44.9); Hemoglobin 8.6 g/dL (11.5-15.4); Lymphocytes # 0.4 K/mcL (0.6-4.6); Lymphocytes % 13.8 %; Mean Corpuscular Hemoglobin 28.1 pg (28.0-33.3); Mean Corpuscular Volume 90.5 fL (83.0-100.0); Mean Platelet Volume 10.3 fL (9.4-12.4); Monocytes # 0.3 K/mcL (0.0-1.3); Monocytes % 8.8 %; Neutrophils # 2.4 K/mcL (1.6-8.9); Red Blood Count 3.06 M/mcL (3.82-4.97); Red Cell Distribution Width 17.8 % (11.5-14.5); White Blood Count 3.2 K/mcL (4.3-11.1)
[2020-01-18 06:24] LABS: Albumin/Globulin Ratio 0.8 (1.1-2.2); Bilirubin,Total 0.6 mg/dL (0.3-1.0); Calcium 9.2 mg/dL (8.6-10.3); Globulin 3.8 g/dL (2.4-3.5); Magnesium 1.9 mg/dL (1.6-2.6); Phosphorous 3.8 mg/dL (2.7-4.5); Total Protein 6.8 g/dL (6.4-8.9)
[2020-01-18 06:36] LABS: Anisocytosis 1+ (Not Present); Platelet Count 53 K/mcL (140-400); Platelet Estimate Decreased (Normal)
[2020-01-18] MEDS: Lactulose Oral Soln 20 GM/30 ML UDC PO SCH (08:46)
[2020-01-18] MEDS: Furosemide 20 MG TABLET PO SCH (08:49)
[2020-01-18] MEDS: Sucralfate 1 GM TABLET PO SCH ×4 (08:49→21:37)
[2020-01-18] MEDS: cefTRIAXone 1,000 MG in Water for inj. (sterile) 10 ML IVP SCH (15:33)
[2020-01-19] MEDS: Furosemide 20 MG TABLET PO SCH (08:26)
[2020-01-19] MEDS: Sucralfate 1 GM TABLET PO SCH ×2 (08:26→10:28)
[2020-01-19 11:42] VITALS: BP 139/67
== END 2020-01-19 13:06 | disposition home health service (06) | DRG 689 ==
LOC: EMEROOARM 02:35 → 3NENU 02:35 → SUATTDRO 07:36 → 3NENU 08:13
PROVIDERS: ADMIT Internal Medicine; ATTEND Student in an Organized Health Care Education/Training Program

== ENCOUNTER 2020-01-21 19:16 | Inpatient (IN) ==
[2020-01-21 19:48] LABS: Hemoglobin 7.9 g/dL (11.5-15.4); Immature Granulocytes % 0.4 % (0-4); Mean Corpuscular Hemoglobin 29.4 pg (28.0-33.3); Red Blood Count 2.69 M/mcL (3.82-4.97); Red Cell Distribution Width 17.7 % (11.5-14.5)
[2020-01-21 19:50] LABS: Basophils % 0.3 %; Eosinophils # 0.1 K/mcL (0.0-0.6); Eosinophils % 1.8 %; Hematocrit 24.6 % (35.3-44.9); Immature Platelets 3.1 % (1.1-6.1); Lymphocytes # 0.6 K/mcL (0.6-4.6); Lymphocytes % 8.2 %; Mean Corpuscular HGB Conc 32.1 g/dL (31.6-35.5); Mean Corpuscular Volume 91.4 fL (83.0-100.0); Mean Platelet Volume 10.1 fL (9.4-12.4); Monocytes # 0.3 K/mcL (0.0-1.3); Monocytes % 4.5 %; Neutrophils # 5.9 K/mcL (1.6-8.9); Platelet Count 61 K/mcL (140-400); Segmented Neutrophils % 84.8 %; White Blood Count 6.9 K/mcL (4.3-11.1)
[2020-01-21 20:02] LABS: INR 1.3; Prothrombin Time 14.9 Seconds (9.4-12.1)
[2020-01-21 20:04] LABS: Activated Partial Thrombo Time 31.3 Seconds (26.0-36.0)
[2020-01-21 20:11] LABS: Alanine Aminotransferase 25 Units/L (7-52); Albumin/Globulin Ratio 0.8 (1.1-2.2); Alkaline Phosphatase 115 Units/L (34-104); Aspartate Amino Transferase 39 Units/L (13-39); BUN/Creatinine Ratio 37 (6-26); Bilirubin,Direct 0.3 mg/dL (0.0-0.2); Bilirubin,Indirect 0.5 mg/dL (0.0-1.0); Bilirubin,Total 0.8 mg/dL (0.3-1.0); Blood Urea Nitrogen 68 mg/dL (8-23); Calcium 8.2 mg/dL (8.6-10.3); Carbon Dioxide 26 mEq/L (23-29); Chloride 101 mEq/L (98-107); Creatine Kinase 89 Units/L (30-223); Ethanol < 10 mg/dL (Less than 10); Globulin 3.6 g/dL (2.4-3.5); Glucose 109 mg/dL (70-105); Osmolality,Calculated 292 (280-300); Potassium 5.4 mEq/L (3.5-5.1); Sodium 131 mEq/L (136-145); Total Protein 6.6 g/dL (6.4-8.9); Troponin I 0.03 ng/mL (< 0.04); eGFR For African Americans 32 (> 60); eGFR For Non-African Americans 27 (> 60)
[2020-01-21 20:15] LABS: Bilirubin,Urine Negative (Negative); Blood,Urine Negative (Negative); Clarity,Urine Clear (Clear); Color,Urine Yellow (Yellow); Glucose,Urine (UA) Normal (Normal); Hyaline Casts,Urine Few per lpf (None Seen); Ketones,Urine Negative (Negative); Leukocyte Esterase,Urine Moderate (Negative); Mucus,Urine Few per lpf (None-Few); Nitrite,Urine Negative (Negative); Protein,Urine Negative (Neg-Trace); RBC,Urine 0-3 per hpf (0-3); Specific Gravity,Urine 1.013 (1.010-1.025); Squamous Epithelial Cell,Urine Few per hpf (None-Few); Urobilinogen,Urine Normal (Normal); WBC,Urine 15-30 per hpf (0-3)
[2020-01-21] MEDS ORDERED: 0.9 % Sodium Chloride 1,000 ML IVC STA (20:19)
[2020-01-21 20:21] LABS: Amphetamine Screen,Urine Negative ng/mL (Cutoff=1000); Barbiturate Screen,Urine Negative ng/mL (Cutoff=200); Benzodiazepines Screen,Urine Negative ng/mL (Cutoff=200); Cannabinoid Screen,Urine Negative ng/mL (Cutoff = 50); Cocaine Screen,Urine Negative ng/mL (Cutoff= 300); Opiate Screen,Urine Negative ng/mL (Cutoff=300); Phencyclidine Screen,Urine Negative ng/mL (Cutoff=25)
[2020-01-21] MEDS ORDERED: Ertapenem 1,000 MG in 0.9 % Sodium Chloride Mini Bag 100 ML IVPB ONE (21:30)
[2020-01-22] MEDS ORDERED: Naloxone 0.4 MG/ML INJ IVP PRN (00:35)
[2020-01-22] MEDS ORDERED: *HR* Promethazine 25 MG/ML VIAL IVP PRN (00:35)
[2020-01-22] MEDS: 0.9 % Sodium Chloride 1,000 ML IVC SCH ×2 (02:07→15:40)
[2020-01-22] MEDS ORDERED: Lactulose Oral Soln 20 GM/30 ML UDC PO ONE (02:36)
[2020-01-22 07:05] LABS: Basophils % 0.7 %; Hemoglobin 7.7 g/dL (11.5-15.4); Red Cell Distribution Width 17.9 % (11.5-14.5); Segmented Neutrophils % 74.9 %
[2020-01-22 07:06] LABS: Eosinophils # 0.1 K/mcL (0.0-0.6); Eosinophils % 3.5 %; Hematocrit 23.8 % (35.3-44.9); Immature Granulocytes % 0.3 % (0-4); Immature Platelets 2.8 % (1.1-6.1); Lymphocytes # 0.4 K/mcL (0.6-4.6); Lymphocytes % 12.2 %; Mean Corpuscular HGB Conc 32.4 g/dL (31.6-35.5); Mean Corpuscular Hemoglobin 29.8 pg (28.0-33.3); Mean Corpuscular Volume 92.2 fL (83.0-100.0); Monocytes # 0.2 K/mcL (0.0-1.3); Monocytes % 8.4 %; Neutrophils # 2.2 K/mcL (1.6-8.9); Red Blood Count 2.58 M/mcL (3.82-4.97); White Blood Count 2.9 K/mcL (4.3-11.1)
[2020-01-22 07:07] LABS: INR 1.3; Prothrombin Time 14.8 Seconds (9.4-12.1)
[2020-01-22 07:19] LABS: Calcium 8.1 mg/dL (8.6-10.3); Magnesium 2.1 mg/dL (1.6-2.6); Potassium 4.8 mEq/L (3.5-5.1)
[2020-01-22 07:23] LABS: Platelet Count 55 K/mcL (140-400)
[2020-01-22 07:25] LABS: Thyroid Stimulating Hormone 1.67 mcIU/mL (0.340-5.600)
[2020-01-22] MEDS ORDERED: cefTRIAXone 1,000 MG in 0.9 % Sodium Chloride Mini Bag 100 ML IVPB SCH (09:00)
[2020-01-22] MEDS: Piperacillin/Tazobactam 3.375 GM in 0.9 % Sodium Chloride Mini Bag 100 ML IVPB SCH (18:52)
[2020-01-23] MEDS: Piperacillin/Tazobactam 3.375 GM in 0.9 % Sodium Chloride Mini Bag 100 ML IVPB SCH ×3 (05:26→20:19)
[2020-01-23 05:43] LABS: Mean Corpuscular Volume 92.9 fL (83.0-100.0)
[2020-01-23 05:45] LABS: Basophils % 0.5 %; Eosinophils # 0.1 K/mcL (0.0-0.6); Eosinophils % 2.8 %; Immature Granulocytes % 0.9 % (0-4); Lymphocytes # 0.2 K/mcL (0.6-4.6); Lymphocytes % 11.4 %; Mean Corpuscular HGB Conc 30.8 g/dL (31.6-35.5); Mean Corpuscular Hemoglobin 28.6 pg (28.0-33.3); Mean Platelet Volume 10.3 fL (9.4-12.4); Monocytes # 0.2 K/mcL (0.0-1.3); Monocytes % 7.1 %; Neutrophils # 1.6 K/mcL (1.6-8.9); Red Cell Distribution Width 17.7 % (11.5-14.5); Segmented Neutrophils % 77.3 %; White Blood Count 2.1 K/mcL (4.3-11.1)
[2020-01-23 05:58] LABS: Platelet Count 61 K/mcL (140-400)
[2020-01-23 06:04] LABS: Calcium 8.4 mg/dL (8.6-10.3); Potassium 4.7 mEq/L (3.5-5.1)
[2020-01-23] MEDS: Acetaminophen 325 MG TABLET PO PRN (16:43)
[2020-01-23] MEDS ORDERED: QUEtiapine Fumarate 25 MG TABLET PO ONE (19:10)
[2020-01-24] MEDS: Acetaminophen 325 MG TABLET PO PRN ×4 (02:51→22:22)
[2020-01-24] MEDS: Piperacillin/Tazobactam 3.375 GM in 0.9 % Sodium Chloride Mini Bag 100 ML IVPB SCH ×3 (04:44→21:03)
[2020-01-24 14:32] LABS: INR 1.3; Prothrombin Time 14.5 Seconds (9.4-12.1)
[2020-01-24 15:50] LABS: Adenovirus Not Detected (Not Detect); Bordetella Pertussis Not Detected (Not Detect); Chlamydophila pneumoniae Not Detected (Not Detect); Coronavirus 229E Not Detected (Not Detect); Coronavirus HKU1 Not Detected (Not Detect); Coronavirus NL63 Not Detected (Not Detect); Coronavirus OC43 Not Detected (Not Detect); Human Metapneumovirus Not Detected (Not Detect); Human Rhinovirus/Enterovirus Not Detected (Not Detect); Influenza A Subtype 2009 H1 Not Detected (Not Detect); Influenza B Not Detected (Not Detect); Mycoplasma pneumoniae Not Detected (Not Detect); Parainfluenza Virus 1 Not Detected (Not Detect); Parainfluenza Virus 2 Not Detected (Not Detect); Parainfluenza Virus 3 Not Detected (Not Detect); Parainfluenza Virus 4 Not Detected (Not Detect); Respiratory Syncytial Virus Not Detected (Not Detect); SARS-CoV-2 Not Detected (Not Detect)
[2020-01-24] MEDS ORDERED: Perflutren Lipid Microsphere 1.3 ML in 0.9 % Sodium Chloride 8.7 ML IVP PRN (15:52)
[2020-01-24] MEDS ORDERED: Melatonin 3 MG TABLET PO ONE (21:14)
[2020-01-25] MEDS: Piperacillin/Tazobactam 3.375 GM in 0.9 % Sodium Chloride Mini Bag 100 ML IVPB SCH (04:58)
[2020-01-25 05:13] LABS: Hematocrit 23.3 % (35.3-44.9)
[2020-01-25 05:15] LABS: Hemoglobin 7.4 g/dL (11.5-15.4); Mean Corpuscular HGB Conc 31.8 g/dL (31.6-35.5); Mean Corpuscular Volume 91.4 fL (83.0-100.0); Mean Platelet Volume 9.4 fL (9.4-12.4); Red Blood Count 2.55 M/mcL (3.82-4.97); Red Cell Distribution Width 17.3 % (11.5-14.5); White Blood Count 1.9 K/mcL (4.3-11.1)
[2020-01-25 05:18] LABS: INR 1.3; Prothrombin Time 14.6 Seconds (9.4-12.1)
[2020-01-25 05:32] LABS: Calcium 8.2 mg/dL (8.6-10.3); Potassium 4.6 mEq/L (3.5-5.1)
[2020-01-25 08:26] VITALS: BP 135/78
== END 2020-01-25 14:53 | DRG 871 ==
LOC: 2ANU 19:16 → CDU 19:16 → EMEROOARM 19:16 → SUATTDRO 22:34 → CDU 23:25 → 3ANU 01-22 15:04
PROVIDERS: ADMIT Internal Medicine; ATTEND Internal Medicine

== ENCOUNTER 2020-02-14 17:09 | Inpatient (IN) ==
[2020-02-14] MEDS ORDERED: Isovue-370 500 ML BOTTLE IVP ONE (17:27)
[2020-02-14 17:38] LABS: Bilirubin,Urine Negative (Negative); Blood,Urine Negative (Negative); Clarity,Urine Clear (Clear); Color,Urine Light-Yellow (Yellow); Glucose,Urine (UA) Normal (Normal); Ketones,Urine Negative (Negative); Leukocyte Esterase,Urine Negative (Negative); Nitrite,Urine Negative (Negative); PH,Urine 7.5 pH Units (5.0-8.0); Protein,Urine Negative (Neg-Trace); Urobilinogen,Urine Normal (Normal)
[2020-02-14 17:53] LABS: INR 1.3; Prothrombin Time 14.6 Seconds (9.4-12.1)
[2020-02-14 17:54] LABS: Basophils % 0.6 %; Eosinophils % 0.6 %; Hematocrit 24.1 % (35.3-44.9); Immature Platelets 2.1 % (1.1-6.1); Lymphocytes # 0.3 K/mcL (0.6-4.6); Lymphocytes % 14.5 %; Mean Corpuscular HGB Conc 33.2 g/dL (31.6-35.5); Mean Corpuscular Hemoglobin 30.1 pg (28.0-33.3); Mean Corpuscular Volume 90.6 fL (83.0-100.0); Mean Platelet Volume 10.3 fL (9.4-12.4); Monocytes # 0.3 K/mcL (0.0-1.3); Monocytes % 16.2 %; Neutrophils # 1.2 K/mcL (1.6-8.9); Red Blood Count 2.66 M/mcL (3.82-4.97); Red Cell Distribution Width 16.1 % (11.5-14.5); Segmented Neutrophils % 68.1 %; White Blood Count 1.8 K/mcL (4.3-11.1)
[2020-02-14 17:55] LABS: Platelet Count 59 K/mcL (140-400)
[2020-02-14 17:56] LABS: Activated Partial Thrombo Time 38.5 Seconds (26.0-36.0)
[2020-02-14 18:21] LABS: Hypochromasia Present (Not Present); Microcytosis Present (Not Present); Platelet Estimate Decreased (Normal)
[2020-02-14 18:24] LABS: Alanine Aminotransferase 55 Units/L (7-52); Albumin 3.1 g/dL (3.5-5.7); Albumin/Globulin Ratio 0.8 (1.1-2.2); Alkaline Phosphatase 118 Units/L (34-104); Aspartate Amino Transferase 71 Units/L (13-39); BUN/Creatinine Ratio 31 (6-26); Bilirubin,Direct 0.3 mg/dL (0.0-0.2); Bilirubin,Indirect 0.6 mg/dL (0.0-1.0); Bilirubin,Total 0.9 mg/dL (0.3-1.0); Blood Urea Nitrogen 44 mg/dL (8-23); C-Reactive Protein < 5 mg/L (Less than 10); Calcium 8.9 mg/dL (8.6-10.3); Carbon Dioxide 27 mEq/L (23-29); Chloride 96 mEq/L (98-107); Globulin 4.1 g/dL (2.4-3.5); Glucose 128 mg/dL (70-105); Lactate Dehydrogenase 153 Units/L (140-271); Magnesium 1.9 mg/dL (1.6-2.6); Osmolality,Calculated 287 (280-300); Phosphorous 3.7 mg/dL (2.7-4.5); Potassium 4.3 mEq/L (3.5-5.1); Sodium 132 mEq/L (136-145); Total Protein 7.2 g/dL (6.4-8.9); Troponin I 0.04 ng/mL (< 0.04); eGFR For African Americans 43 (> 60); eGFR For Non-African Americans 36 (> 60)
[2020-02-14 18:30] LABS: Ferritin 73 ng/mL (10-120)
[2020-02-14] MEDS ORDERED: 0.9 % Sodium Chloride 1,000 ML IVC ONE (18:30)
[2020-02-14 21:06] LABS: Lipase 16 Units/L (11-82)
[2020-02-14] MEDS ORDERED: Lactulose Oral Soln 20 GM/30 ML UDC PO ONE (23:51)
[2020-02-15] MEDS ORDERED: Naloxone 0.4 MG/ML INJ IVP PRN (00:22)
[2020-02-15] MEDS ORDERED: Ondansetron 4 MG/2 ML VIAL IVP PRN (00:22)
[2020-02-15] MEDS: Lactulose Oral Soln 20 GM/30 ML UDC PO SCH ×4 (05:02→20:44)
[2020-02-15 05:05] LABS: Hemoglobin 6.9 g/dL (11.5-15.4)
[2020-02-15 05:07] LABS: Hematocrit 21.9 % (35.3-44.9); Immature Platelets 2.9 % (1.1-6.1); Mean Corpuscular HGB Conc 31.5 g/dL (31.6-35.5); Mean Platelet Volume 10.4 fL (9.4-12.4); Red Blood Count 2.38 M/mcL (3.82-4.97); Red Cell Distribution Width 16.1 % (11.5-14.5); White Blood Count 1.7 K/mcL (4.3-11.1)
[2020-02-15 05:22] LABS: Calcium 8.6 mg/dL (8.6-10.3)
[2020-02-15 05:36] LABS: Magnesium 1.9 mg/dL (1.6-2.6); Phosphorous 3.7 mg/dL (2.7-4.5)
[2020-02-15] MEDS: Acetaminophen 325 MG TABLET PO PRN (06:39)
[2020-02-15] MEDS ORDERED: Furosemide 20 MG TABLET PO SCH (09:00)
[2020-02-15] MEDS: Dexamethasone 4 MG/ML VIAL IVP SCH (09:16)
[2020-02-15] MEDS ORDERED: 0.9 % Sodium Chloride 250 ML ONE (09:34)
[2020-02-15] MEDS: Pantoprazole 40 MG VIAL IVP SCH (18:10)
[2020-02-15 18:51] LABS: Hematocrit 29.5 % (35.3-44.9)
[2020-02-15 18:52] LABS: Hemoglobin 9.4 g/dL (11.5-15.4)
[2020-02-15] MEDS: Melatonin 3 MG TABLET PO SCH (20:43)
[2020-02-15] MEDS: Furosemide 20 MG/2 ML VIAL IVP SCH (20:43)
[2020-02-16] MEDS: Pantoprazole 40 MG VIAL IVP SCH (05:26)
[2020-02-16 06:36] LABS: Immature Granulocytes % 0.3 % (0-4); Mean Platelet Volume 10.1 fL (9.4-12.4); Red Cell Distribution Width 15.4 % (11.5-14.5)
[2020-02-16 06:38] LABS: Hematocrit 29.5 % (35.3-44.9); Hemoglobin 9.7 g/dL (11.5-15.4); Immature Platelets 2.9 % (1.1-6.1); Lymphocytes # 0.2 K/mcL (0.6-4.6); Lymphocytes % 6.5 %; Mean Corpuscular HGB Conc 32.9 g/dL (31.6-35.5); Mean Corpuscular Hemoglobin 29.6 pg (28.0-33.3); Mean Corpuscular Volume 89.9 fL (83.0-100.0); Monocytes # 0.4 K/mcL (0.0-1.3); Monocytes % 10.8 %; Nucleated Red Blood Cells 0.6 /100 WBC (0); Red Blood Count 3.28 M/mcL (3.82-4.97); Segmented Neutrophils % 82.4 %; White Blood Count 3.2 K/mcL (4.3-11.1)
[2020-02-16 06:39] LABS: Neutrophils # 2.6 K/mcL (1.6-8.9); Platelet Count 52 K/mcL (140-400)
[2020-02-16 06:57] LABS: Calcium 8.2 mg/dL (8.6-10.3); Magnesium 1.8 mg/dL (1.6-2.6); Phosphorous 3.2 mg/dL (2.7-4.5); Potassium 3.7 mEq/L (3.5-5.1)
[2020-02-16] MEDS: Furosemide 20 MG/2 ML VIAL IVP SCH ×2 (07:43→19:47)
[2020-02-16] MEDS: Dexamethasone 4 MG/ML VIAL IVP SCH (07:46)
[2020-02-16] MEDS: Lactulose Oral Soln 20 GM/30 ML UDC PO SCH ×3 (07:46→19:47)
[2020-02-16] MEDS: Melatonin 3 MG TABLET PO SCH (19:48)
[2020-02-16] MEDS: Acetaminophen 325 MG TABLET PO PRN (19:48)
[2020-02-16 22:39] LABS: Hematocrit 30.3 % (35.3-44.9); Hemoglobin 9.9 g/dL (11.5-15.4)
[2020-02-17] MEDS: Acetaminophen 325 MG TABLET PO PRN ×2 (03:13→20:20)
[2020-02-17 05:51] LABS: Hemoglobin 9.6 g/dL (11.5-15.4); Immature Granulocytes % 0.4 % (0-4); Lymphocytes % 9.4 %; Mean Corpuscular Hemoglobin 29.4 pg (28.0-33.3)
[2020-02-17 05:53] LABS: Basophils % 0.2 %; Lymphocytes # 0.4 K/mcL (0.6-4.6); Mean Corpuscular HGB Conc 33.1 g/dL (31.6-35.5); Mean Platelet Volume 10.3 fL (9.4-12.4); Monocytes # 0.4 K/mcL (0.0-1.3); Monocytes % 9.2 %; Neutrophils # 3.8 K/mcL (1.6-8.9); Platelet Count 49 K/mcL (140-400); Red Blood Count 3.26 M/mcL (3.82-4.97); Red Cell Distribution Width 15.4 % (11.5-14.5); Segmented Neutrophils % 80.8 %; White Blood Count 4.7 K/mcL (4.3-11.1)
[2020-02-17 06:07] LABS: Calcium 8.2 mg/dL (8.6-10.3); Magnesium 1.8 mg/dL (1.6-2.6); Phosphorous 4.1 mg/dL (2.7-4.5); Potassium 3.8 mEq/L (3.5-5.1)
[2020-02-17] MEDS: Cholecalciferol (D-3) 1,000 UNIT (25MCG) TABLET PO SCH (07:21)
[2020-02-17] MEDS: lisinopriL 10 MG TABLET PO SCH (07:21)
[2020-02-17] MEDS: Dexamethasone 4 MG/ML VIAL IVP SCH (07:22)
[2020-02-17] MEDS: Zinc Sulfate 220 MG CAPSULE PO SCH (07:22)
[2020-02-17] MEDS: Furosemide 20 MG/2 ML VIAL IVP SCH ×2 (07:22→19:41)
[2020-02-17] MEDS: Lactulose Oral Soln 20 GM/30 ML UDC PO SCH ×3 (07:23→19:42)
[2020-02-17 11:15] LABS: RBC,Pleural Fluid 37000 RBC/mcL
[2020-02-17 11:18] LABS: Appearance of Pleural Fl Bloody (Clear)
[2020-02-17 11:25] LABS: Total Protein,Pleural Fluid 3.8 g/dL
[2020-02-17 11:55] LABS: Basophils,Pleural Fluid 0 %; Eosinophils,Pleural Fluid 0 %
[2020-02-17] MEDS: Melatonin 3 MG TABLET PO SCH (19:41)
[2020-02-18] MEDS: Lactulose Oral Soln 20 GM/30 ML UDC PO SCH (07:29)
[2020-02-18] MEDS: Cholecalciferol (D-3) 1,000 UNIT (25MCG) TABLET PO SCH (07:29)
[2020-02-18] MEDS: lisinopriL 10 MG TABLET PO SCH (07:29)
[2020-02-18] MEDS: Dexamethasone 4 MG/ML VIAL IVP SCH (07:29)
[2020-02-18] MEDS: Zinc Sulfate 220 MG CAPSULE PO SCH (07:29)
[2020-02-18] MEDS: Furosemide 20 MG/2 ML VIAL IVP SCH (07:30)
[2020-02-18 07:48] VITALS: BP 145/64
== END 2020-02-18 11:03 | disposition home or self-care (01) | DRG 441 ==
LOC: 2NENU 17:09 → EMEROOARM 17:09 → 2NENU 02-15 03:03
PROVIDERS: ADMIT Internal Medicine; ATTEND Internal Medicine

== ENCOUNTER 2020-05-13 14:34 | Observation (INO) ==
[2020-05-13] MEDS ORDERED: 0.9 % Sodium Chloride 1,000 ML IVC ONE (14:56)
[2020-05-13 15:24] LABS: Basophils % 0.6 %; Immature Granulocytes % 0.3 % (0-4); Red Cell Distribution Width 14.4 % (11.5-14.5)
[2020-05-13 15:25] LABS: Eosinophils # 0.1 K/mcL (0.0-0.6); Eosinophils % 3.9 %; Hematocrit 26.8 % (35.3-44.9); Hemoglobin 8.7 g/dL (11.5-15.4); Immature Platelets 2.7 % (1.1-6.1); Lymphocytes # 0.7 K/mcL (0.6-4.6); Lymphocytes % 22.6 %; Mean Corpuscular HGB Conc 32.5 g/dL (31.6-35.5); Mean Corpuscular Hemoglobin 30.6 pg (28.0-33.3); Mean Corpuscular Volume 94.4 fL (83.0-100.0); Mean Platelet Volume 10.8 fL (9.4-12.4); Monocytes # 0.3 K/mcL (0.0-1.3); Monocytes % 10.3 %; Neutrophils # 1.9 K/mcL (1.6-8.9); Red Blood Count 2.84 M/mcL (3.82-4.97); Segmented Neutrophils % 62.3 %; White Blood Count 3.1 K/mcL (4.3-11.1)
[2020-05-13 15:27] LABS: Platelet Count 64 K/mcL (140-400)
[2020-05-13 16:13] LABS: BUN/Creatinine Ratio 29 (6-26); Blood Urea Nitrogen 42 mg/dL (8-23); Calcium 9.4 mg/dL (8.6-10.3); Carbon Dioxide 24 mEq/L (23-29); Chloride 104 mEq/L (98-107); Glucose 210 mg/dL (70-105); Magnesium 1.7 mg/dL (1.6-2.6); Osmolality,Calculated 297 (280-300); Potassium 3.7 mEq/L (3.5-5.1); Sodium 135 mEq/L (136-145); Troponin I < 0.03 ng/mL (< 0.04); eGFR For African Americans 41 (> 60); eGFR For Non-African Americans 34 (> 60)
[2020-05-13 17:12] LABS: Bilirubin,Urine Negative (Negative); Blood,Urine Moderate (Negative); Clarity,Urine Clear (Clear); Color,Urine Yellow (Yellow); Glucose,Urine (UA) Normal (Normal); Ketones,Urine Negative (Negative); Leukocyte Esterase,Urine Small (Negative); Nitrite,Urine Negative (Negative); PH,Urine 5.5 pH Units (5.0-8.0); Protein,Urine Negative (Neg-Trace); Urobilinogen,Urine Normal (Normal)
[2020-05-13 17:22] LABS: Squamous Epithelial Cell,Urine Few per hpf (None-Few)
[2020-05-13] MEDS ORDERED: Ondansetron 4 MG/2 ML VIAL IVP PRN (17:22)
[2020-05-13] MEDS ORDERED: Naloxone 0.4 MG/ML INJ IVP PRN (17:22)
[2020-05-13 17:23] LABS: Amorphous Sediment,Urine Few per hpf (None-Few); Bacteria,Urine Few per hpf (None-Few); WBC,Urine 0-3 per hpf (0-3)
[2020-05-13] MEDS ORDERED: Perflutren Lipid Microsphere 1.3 ML in 0.9 % Sodium Chloride 8.7 ML IVP PRN (17:26)
[2020-05-13 17:59] LABS: Creatine Kinase 107 Units/L (30-223)
[2020-05-13 18:27] LABS: Amphetamine Screen,Urine Negative ng/mL (Cutoff=1000); Barbiturate Screen,Urine Negative ng/mL (Cutoff=200); Benzodiazepines Screen,Urine Negative ng/mL (Cutoff=200); Cannabinoid Screen,Urine Negative ng/mL (Cutoff = 50); Cocaine Screen,Urine Negative ng/mL (Cutoff= 300); Opiate Screen,Urine Negative ng/mL (Cutoff=300); Phencyclidine Screen,Urine Negative ng/mL (Cutoff=25)
[2020-05-13] MEDS ORDERED: *HR* Dextrose 50 % in Water (Vial) 50 ML VIAL IVP PRN (19:08)
[2020-05-13] MEDS ORDERED: Dextrose Gel 15 GM/37.5 ML TUBE PO PRN ×2 (19:08)
[2020-05-13] MEDS ORDERED: D5% in Water 1,000 ML IVC PRN (19:08)
[2020-05-13] MEDS ORDERED: Insulin LISPRO 300 UNITS/3 ML VIAL SUBQ SCH (21:00)
[2020-05-14 02:52] LABS: Basophils % 0.4 %; Eosinophils % 2.8 %; Hemoglobin 8.2 g/dL (11.5-15.4); Immature Granulocytes % 0.4 % (0-4)
[2020-05-14 02:53] LABS: Estimated Average Glucose 111 mg/dl; Hemoglobin A1C 5.5 %
[2020-05-14 02:54] LABS: Eosinophils # 0.1 K/mcL (0.0-0.6); Hematocrit 25.4 % (35.3-44.9); Immature Platelets 1.7 % (1.1-6.1); Lymphocytes # 0.3 K/mcL (0.6-4.6); Mean Corpuscular HGB Conc 32.3 g/dL (31.6-35.5); Mean Corpuscular Hemoglobin 30.4 pg (28.0-33.3); Mean Corpuscular Volume 94.1 fL (83.0-100.0); Mean Platelet Volume 9.8 fL (9.4-12.4); Monocytes # 0.3 K/mcL (0.0-1.3); Monocytes % 9.9 %; Red Cell Distribution Width 14.4 % (11.5-14.5); Segmented Neutrophils % 73.5 %; White Blood Count 2.5 K/mcL (4.3-11.1)
[2020-05-14 02:55] LABS: Neutrophils # 1.8 K/mcL (1.6-8.9); Platelet Count 47 K/mcL (140-400)
[2020-05-14 03:12] LABS: Calcium 8.8 mg/dL (8.6-10.3); Magnesium 1.6 mg/dL (1.6-2.6); Potassium 3.8 mEq/L (3.5-5.1)
[2020-05-14 03:25] LABS: Thyroid Stimulating Hormone 1.047 mcIU/mL (0.340-5.600)
[2020-05-14 03:46] LABS: Hepatitis B Surface Antigen Nonreactive (Nonreactive)
[2020-05-14 04:14] LABS: Hepatitis C Virus Antibody Nonreactive (Nonreactive)
[2020-05-14] MEDS: Acetaminophen 325 MG TABLET PO PRN ×2 (06:08→12:00)
[2020-05-14] MEDS: Insulin LISPRO 300 UNITS/3 ML VIAL SUBQ SCH ×2 (07:52→11:44)
[2020-05-14] MEDS ORDERED: Lactulose Oral Soln 20 GM/30 ML UDC PO SCH ×2 (09:45→21:00)
[2020-05-14 16:01] VITALS: BP 127/71
== END 2020-05-14 16:27 | disposition home health service (06) ==
LOC: EMEROOARM 14:34 → 3BNU 14:34 → SUATTDRO 17:37 → 3BNU 18:27
PROVIDERS: ADMIT Pharmacist; ATTEND Pharmacist

== ENCOUNTER 2020-07-04 05:38 | Inpatient (IN) ==
[2020-07-04] MEDS ORDERED: Isovue-370 500 ML BOTTLE IVP ONE (05:58)
[2020-07-04 06:36] LABS: Basophils % 0.5 %; Eosinophils % 3.9 %; Hemoglobin 7.2 g/dL (11.5-15.4)
[2020-07-04 06:37] LABS: Eosinophils # 0.2 K/mcL (0.0-0.6); Hematocrit 22.6 % (35.3-44.9); Immature Granulocytes % 0.5 % (0-4); Immature Platelets 2.4 % (1.1-6.1); Lymphocytes # 0.3 K/mcL (0.6-4.6); Lymphocytes % 6.7 %; Mean Corpuscular HGB Conc 31.9 g/dL (31.6-35.5); Mean Corpuscular Hemoglobin 29.3 pg (28.0-33.3); Mean Corpuscular Volume 91.9 fL (83.0-100.0); Mean Platelet Volume 9.4 fL (9.4-12.4); Monocytes # 0.3 K/mcL (0.0-1.3); Monocytes % 7.8 %; Red Blood Count 2.46 M/mcL (3.82-4.97); Red Cell Distribution Width 14.4 % (11.5-14.5); Segmented Neutrophils % 80.6 %; White Blood Count 4.4 K/mcL (4.3-11.1)
[2020-07-04 06:40] LABS: Neutrophils # 3.6 K/mcL (1.6-8.9); Platelet Count 65 K/mcL (140-400)
[2020-07-04 06:50] LABS: Bilirubin,Urine Negative (Negative); Blood,Urine Trace (Negative); Clarity,Urine Turbid (Clear); Color,Urine Light-Yellow (Yellow); Glucose,Urine (UA) Normal (Normal); Hyaline Casts,Urine Few per lpf (None Seen); Ketones,Urine Negative (Negative); Leukocyte Esterase,Urine Large (Negative); Nitrite,Urine Negative (Negative); PH,Urine 5.5 pH Units (5.0-8.0); Protein,Urine Negative (Neg-Trace); RBC,Urine 0-3 per hpf (0-3); Specific Gravity,Urine 1.012 (1.010-1.025); Squamous Epithelial Cell,Urine Few per hpf (None-Few); Urobilinogen,Urine Normal (Normal)
[2020-07-04 06:58] LABS: Alanine Aminotransferase 12 Units/L (7-52); Albumin/Globulin Ratio 0.9 (1.1-2.2); Alkaline Phosphatase 105 Units/L (34-104); Aspartate Amino Transferase 20 Units/L (13-39); BUN/Creatinine Ratio 25 (6-26); Bilirubin,Direct 0.4 mg/dL (0.0-0.2); Bilirubin,Indirect 0.6 mg/dL (0.0-1.0); Blood Urea Nitrogen 29 mg/dL (8-23); Calcium 8.4 mg/dL (8.6-10.3); Carbon Dioxide 25 mEq/L (23-29); Chloride 103 mEq/L (98-107); Globulin 3.4 g/dL (2.4-3.5); Glucose 144 mg/dL (70-105); Lipase 16 Units/L (11-82); Osmolality,Calculated 284 (280-300); Potassium 3.7 mEq/L (3.5-5.1); Sodium 133 mEq/L (136-145); Total Protein 6.4 g/dL (6.4-8.9); Troponin I < 0.03 ng/mL (< 0.04); eGFR For African Americans 54 (> 60); eGFR For Non-African Americans 45 (> 60)
[2020-07-04] MEDS ORDERED: Piperacillin/Tazobactam 3.375 GM in 0.9 % Sodium Chloride Mini Bag 100 ML IVPB ONE (08:10)
[2020-07-04] MEDS ORDERED: Pantoprazole 40 MG VIAL IVP ONE (08:21)
[2020-07-04] MEDS ORDERED: Ondansetron 4 MG/2 ML VIAL IVP PRN (08:27)
[2020-07-04] MEDS ORDERED: Naloxone 0.4 MG/ML INJ IVP PRN (08:27)
[2020-07-04] MEDS ORDERED: D5% in Water 1,000 ML IVC PRN (08:30)
[2020-07-04] MEDS ORDERED: *HR* Dextrose 50 % in Water (Vial) 50 ML VIAL IVP PRN (08:30)
[2020-07-04] MEDS ORDERED: Dextrose Gel 15 GM/37.5 ML TUBE PO PRN ×2 (08:30)
[2020-07-04 10:09] LABS: INR 1.4; Prothrombin Time 15.6 Seconds (9.4-12.1)
[2020-07-04] MEDS: Insulin LISPRO 300 UNITS/3 ML VIAL SUBQ SCH ×3 (12:19→21:22)
[2020-07-04] MEDS: Piperacillin/Tazobactam 3.375 GM in 0.9 % Sodium Chloride Mini Bag 100 ML IVPB SCH ×2 (16:04→23:57)
[2020-07-04] MEDS: Pantoprazole 40 MG VIAL IVP SCH (16:04)
[2020-07-04] MEDS: Acetaminophen 325 MG TABLET PO PRN (21:25)
[2020-07-04] MEDS: QUEtiapine Fumarate 25 MG TABLET PO SCH (22:14)
[2020-07-04] MEDS: *HR* LORazepam 0.5 MG TABLET PO PRN (23:57)
[2020-07-05 01:20] LABS: Influenza A PCR Negative (Negative); Influenza B PCR Negative (Negative); Resp. Syncytial Virus PCR Negative (Negative); SARS-CoV-2 by PCR (In House) Negative (Negative)
[2020-07-05 01:39] LABS: Hematocrit 18.9 % (35.3-44.9); Hemoglobin 6.2 g/dL (11.5-15.4); Mean Corpuscular HGB Conc 32.8 g/dL (31.6-35.5); Red Cell Distribution Width 14.5 % (11.5-14.5)
[2020-07-05 01:41] LABS: Basophils % 0.4 %; Eosinophils # 0.1 K/mcL (0.0-0.6); Eosinophils % 3.9 %; Immature Granulocytes % 0.4 % (0-4); Immature Platelets 2.7 % (1.1-6.1); Lymphocytes # 0.2 K/mcL (0.6-4.6); Lymphocytes % 7.7 %; Mean Corpuscular Hemoglobin 29.7 pg (28.0-33.3); Mean Corpuscular Volume 90.4 fL (83.0-100.0); Mean Platelet Volume 9.3 fL (9.4-12.4); Monocytes # 0.2 K/mcL (0.0-1.3); Neutrophils # 2.3 K/mcL (1.6-8.9); Red Blood Count 2.09 M/mcL (3.82-4.97); Segmented Neutrophils % 81.6 %; White Blood Count 2.8 K/mcL (4.3-11.1)
[2020-07-05 01:47] LABS: Platelet Count 57 K/mcL (140-400)
[2020-07-05 01:50] LABS: INR 1.3; Prothrombin Time 14.5 Seconds (9.4-12.1)
[2020-07-05 01:52] LABS: Calcium 7.8 mg/dL (8.6-10.3); Magnesium 1.6 mg/dL (1.6-2.6); Potassium 3.7 mEq/L (3.5-5.1)
[2020-07-05] MEDS: Pantoprazole 40 MG VIAL IVP SCH ×2 (05:12→17:05)
[2020-07-05] MEDS ORDERED: Aspirin Enteric Coated 81 MG Tablet PO SCH (09:00)
[2020-07-05] MEDS: Insulin LISPRO 300 UNITS/3 ML VIAL SUBQ SCH ×4 (09:31→21:35)
[2020-07-05] MEDS: Sucralfate 1 GM TABLET PO SCH ×4 (09:45→20:33)
[2020-07-05] MEDS: QUEtiapine Fumarate 25 MG TABLET PO SCH ×2 (09:46→20:29)
[2020-07-05] MEDS: Cholecalciferol (D-3) 1,000 UNIT (25MCG) TABLET PO SCH (09:46)
[2020-07-05] MEDS ORDERED: 0.9 % Sodium Chloride 250 ML ONE ×2 (11:05→15:38)
[2020-07-05] MEDS: Piperacillin/Tazobactam 3.375 GM in 0.9 % Sodium Chloride Mini Bag 100 ML IVPB SCH ×3 (15:52→23:30)
[2020-07-05 17:39] LABS: RBC,Pleural Fluid 2000 RBC/mcL
[2020-07-05 17:51] LABS: Total Protein,Pleural Fluid 2.2 g/dL
[2020-07-05 17:56] LABS: Appearance of Pleural Fl Cloudy (Clear)
[2020-07-05 18:22] LABS: Hematocrit 25.1 % (35.3-44.9); Hemoglobin 8.3 g/dL (11.5-15.4)
[2020-07-05 18:52] LABS: Basophils,Pleural Fluid 0 %; Eosinophils,Pleural Fluid 0 %
[2020-07-05] MEDS ORDERED: Furosemide 20 MG TABLET PO SCH (21:00)
[2020-07-05] MEDS: Acetaminophen 325 MG TABLET PO PRN (23:13)
[2020-07-06] MEDS: Pantoprazole 40 MG VIAL IVP SCH ×2 (05:45→18:40)
[2020-07-06] MEDS ORDERED: *HR* Propofol 200 MG/20 ML VIAL IVP ONE (07:41)
[2020-07-06] MEDS ORDERED: *HR* FentaNYL (PF) 100 MCG/2 ML VIAL ONE (07:41)
[2020-07-06] MEDS ORDERED: Dexamethasone 4 MG/ML VIAL ONE (07:43)
[2020-07-06] MEDS ORDERED: Lidocaine -MPF 2% 2 ML VIAL ONE (07:43)
[2020-07-06] MEDS ORDERED: Ondansetron 4 MG/2 ML VIAL ONE (07:43)
[2020-07-06] MEDS ORDERED: Lidocaine -MPF 4% 5 ML AMPUL ONE (07:45)
[2020-07-06] MEDS ORDERED: *HR* Vasopressin 20 UNIT/ML VIAL ONE (08:15)
[2020-07-06] MEDS ORDERED: *HR* EPINEPHrine 1 MG/10 ML SYRINGE INTRATRACH PRN (08:51)
[2020-07-06] MEDS ORDERED: Perflutren Lipid Microsphere 1.3 ML in 0.9 % Sodium Chloride 8.7 ML IVP PRN (10:23)
[2020-07-06] MEDS: Cholecalciferol (D-3) 1,000 UNIT (25MCG) TABLET PO SCH (10:28)
[2020-07-06] MEDS: QUEtiapine Fumarate 25 MG TABLET PO SCH ×2 (10:28→19:42)
[2020-07-06] MEDS: Sucralfate 1 GM TABLET PO SCH ×4 (10:28→19:42)
[2020-07-06] MEDS: Insulin LISPRO 300 UNITS/3 ML VIAL SUBQ SCH ×4 (10:29→21:17)
[2020-07-06] MEDS: Piperacillin/Tazobactam 3.375 GM in 0.9 % Sodium Chloride Mini Bag 100 ML IVPB SCH ×2 (10:29→16:25)
[2020-07-06 10:42] LABS: Hematocrit 24.2 % (35.3-44.9); Immature Platelets 2.2 % (1.1-6.1); Lymphocytes # 0.2 K/mcL (0.6-4.6); Mean Corpuscular HGB Conc 33.1 g/dL (31.6-35.5); Mean Corpuscular Hemoglobin 29.5 pg (28.0-33.3); Mean Corpuscular Volume 89.3 fL (83.0-100.0); Mean Platelet Volume 9.9 fL (9.4-12.4); Monocytes # 0.1 K/mcL (0.0-1.3); Neutrophils # 1.7 K/mcL (1.6-8.9); Red Blood Count 2.71 M/mcL (3.82-4.97); Red Cell Distribution Width 15.5 % (11.5-14.5); White Blood Count 2.1 K/mcL (4.3-11.1)
[2020-07-06 10:43] LABS: Platelet Count 58 K/mcL (140-400)
[2020-07-06 10:59] LABS: Calcium 8.2 mg/dL (8.6-10.3); Magnesium 1.6 mg/dL (1.6-2.6); Phosphorous 3.5 mg/dL (2.7-4.5); Potassium 3.6 mEq/L (3.5-5.1)
[2020-07-06 11:03] LABS: Platelet Estimate Marked Decrease (Normal)
[2020-07-06 11:33] LABS: Source of Body Fluid Right Middle Lobe
[2020-07-06 13:02] LABS: Appearance of Body Fluid Hazy (Clear); Volume of Body Fluid 13 mL
[2020-07-06] MEDS ORDERED: Carbamide Peroxide 150 DROP/15 ML BOTTLE BOTH EARS ONE (20:03)
[2020-07-06] MEDS ORDERED: Carbamide Peroxide 150 DROP/15 ML BOTTLE RIGHT EAR ONE (20:03)
[2020-07-06] MEDS: *HR* LORazepam 0.5 MG TABLET PO PRN (22:38)
[2020-07-07] MEDS: Piperacillin/Tazobactam 3.375 GM in 0.9 % Sodium Chloride Mini Bag 100 ML IVPB SCH ×3 (00:14→15:34)
[2020-07-07] MEDS ORDERED: traZODone 50 MG TABLET PO ONE (01:41)
[2020-07-07 02:27] LABS: Basophils % 0.3 %; Mean Platelet Volume 9.2 fL (9.4-12.4); Red Cell Distribution Width 15.3 % (11.5-14.5)
[2020-07-07 02:29] LABS: Eosinophils % 0.6 %; Hematocrit 25.1 % (35.3-44.9); Hemoglobin 8.1 g/dL (11.5-15.4); Immature Granulocytes % 0.3 % (0-4); Immature Platelets 1.3 % (1.1-6.1); Lymphocytes # 0.2 K/mcL (0.6-4.6); Lymphocytes % 5.4 %; Mean Corpuscular HGB Conc 32.3 g/dL (31.6-35.5); Mean Corpuscular Hemoglobin 29.3 pg (28.0-33.3); Mean Corpuscular Volume 90.9 fL (83.0-100.0); Monocytes # 0.2 K/mcL (0.0-1.3); Monocytes % 7.7 %; Neutrophils # 2.7 K/mcL (1.6-8.9); Red Blood Count 2.76 M/mcL (3.82-4.97); Segmented Neutrophils % 85.7 %; White Blood Count 3.1 K/mcL (4.3-11.1)
[2020-07-07 02:30] LABS: Platelet Count 73 K/mcL (140-400)
[2020-07-07 02:51] LABS: Calcium 7.8 mg/dL (8.6-10.3); Magnesium 1.6 mg/dL (1.6-2.6); Phosphorous 3.4 mg/dL (2.7-4.5)
[2020-07-07] MEDS: Pantoprazole 40 MG VIAL IVP SCH ×2 (06:17→17:58)
[2020-07-07] MEDS ORDERED: 0.9 % Sodium Chloride 250 ML IVC ONE (07:59)
[2020-07-07] MEDS: Sucralfate 1 GM TABLET PO SCH ×4 (08:20→22:38)
[2020-07-07] MEDS: QUEtiapine Fumarate 25 MG TABLET PO SCH ×2 (08:20→19:57)
[2020-07-07] MEDS: Insulin LISPRO 300 UNITS/3 ML VIAL SUBQ SCH ×4 (08:20→22:39)
[2020-07-07] MEDS: Cholecalciferol (D-3) 1,000 UNIT (25MCG) TABLET PO SCH (08:20)
[2020-07-07 17:44] LABS: Fluid Source for Albumin PLEURAL FL.
[2020-07-07] MEDS ORDERED: *HR* LORazepam 2 MG/ML VIAL IVP PRN (19:35)
[2020-07-08] MEDS: Piperacillin/Tazobactam 3.375 GM in 0.9 % Sodium Chloride Mini Bag 100 ML IVPB SCH ×2 (00:50→08:22)
[2020-07-08] MEDS: Pantoprazole 40 MG VIAL IVP SCH (05:34)
[2020-07-08 07:14] LABS: Lymphocytes % 11.7 %
[2020-07-08 07:16] LABS: Basophils % 0.6 %; Eosinophils # 0.2 K/mcL (0.0-0.6); Eosinophils % 6.2 %; Hematocrit 25.9 % (35.3-44.9); Hemoglobin 8.2 g/dL (11.5-15.4); Immature Platelets 1.7 % (1.1-6.1); Lymphocytes # 0.4 K/mcL (0.6-4.6); Mean Corpuscular HGB Conc 31.7 g/dL (31.6-35.5); Mean Corpuscular Hemoglobin 28.6 pg (28.0-33.3); Mean Corpuscular Volume 90.2 fL (83.0-100.0); Mean Platelet Volume 9.4 fL (9.4-12.4); Monocytes # 0.3 K/mcL (0.0-1.3); Monocytes % 10.7 %; Neutrophils # 2.2 K/mcL (1.6-8.9); Red Blood Count 2.87 M/mcL (3.82-4.97); Red Cell Distribution Width 15.5 % (11.5-14.5); Segmented Neutrophils % 69.8 %; White Blood Count 3.1 K/mcL (4.3-11.1)
[2020-07-08 07:17] LABS: Platelet Count 80 K/mcL (140-400)
[2020-07-08 08:05] LABS: Calcium 7.9 mg/dL (8.6-10.3); Magnesium 1.6 mg/dL (1.6-2.6); Phosphorous 2.7 mg/dL (2.7-4.5)
[2020-07-08] MEDS: Insulin LISPRO 300 UNITS/3 ML VIAL SUBQ SCH ×2 (08:22→12:00)
[2020-07-08] MEDS: Sucralfate 1 GM TABLET PO SCH ×2 (08:23→12:04)
[2020-07-08] MEDS: Cholecalciferol (D-3) 1,000 UNIT (25MCG) TABLET PO SCH (08:23)
[2020-07-08] MEDS: QUEtiapine Fumarate 25 MG TABLET PO SCH (08:23)
[2020-07-08 11:19] VITALS: BP 112/68
== END 2020-07-08 15:01 | disposition hospice, home (50) | DRG 871 ==
LOC: 3ANU 05:38 → EMEROOARM 05:38 → 3ANU 09:15 → 3BNU 07-08 00:44
PROVIDERS: ADMIT Family Medicine; ATTEND Family Medicine
PROC: ENDOEBX (2020-07-06 08:00)

== ENCOUNTER 2020-07-10 13:24 | Inpatient (IN) ==
[2020-07-10] MEDS ORDERED: Isovue-370 500 ML BOTTLE IVP ONE (13:38)
[2020-07-10 13:56] LABS: Basophils % 0.6 %; Hematocrit 29.7 % (35.3-44.9); Immature Granulocytes % 0.3 % (0-4); Red Cell Distribution Width 15.4 % (11.5-14.5); White Blood Count 3.5 K/mcL (4.3-11.1)
[2020-07-10 13:57] LABS: Eosinophils # 0.2 K/mcL (0.0-0.6); Eosinophils % 5.5 %; Hemoglobin 9.5 g/dL (11.5-15.4); Immature Platelets 1.7 % (1.1-6.1); Lymphocytes # 0.4 K/mcL (0.6-4.6); Lymphocytes % 11.8 %; Mean Corpuscular Hemoglobin 29.1 pg (28.0-33.3); Mean Corpuscular Volume 90.8 fL (83.0-100.0); Mean Platelet Volume 8.5 fL (9.4-12.4); Monocytes # 0.3 K/mcL (0.0-1.3); Red Blood Count 3.27 M/mcL (3.82-4.97); Segmented Neutrophils % 72.8 %
[2020-07-10 14:02] LABS: Neutrophils # 2.6 K/mcL (1.6-8.9); Platelet Count 80 K/mcL (140-400)
[2020-07-10] MEDS ORDERED: *HR* LORazepam 2 MG/ML VIAL IVP ONE (14:08)
[2020-07-10 14:17] LABS: Alanine Aminotransferase 16 Units/L (7-52); Albumin 2.9 g/dL (3.5-5.7); Albumin/Globulin Ratio 0.8 (1.1-2.2); Alkaline Phosphatase 118 Units/L (34-104); Aspartate Amino Transferase 25 Units/L (13-39); BUN/Creatinine Ratio 22 (6-26); Bilirubin,Direct 0.2 mg/dL (0.0-0.2); Bilirubin,Indirect 0.4 mg/dL (0.0-1.0); Bilirubin,Total 0.6 mg/dL (0.3-1.0); Blood Urea Nitrogen 25 mg/dL (8-23); Calcium 8.7 mg/dL (8.6-10.3); Carbon Dioxide 29 mEq/L (23-29); Chloride 107 mEq/L (98-107); Globulin 3.6 g/dL (2.4-3.5); Glucose 164 mg/dL (70-105); Lipase 25 Units/L (11-82); Magnesium 1.6 mg/dL (1.6-2.6); Osmolality,Calculated 296 (280-300); Potassium 3.4 mEq/L (3.5-5.1); Sodium 139 mEq/L (136-145); Total Protein 6.5 g/dL (6.4-8.9); Troponin I < 0.03 ng/mL (< 0.04); eGFR For African Americans 55 (> 60); eGFR For Non-African Americans 45 (> 60)
[2020-07-10 14:46] LABS: Bacteria,Urine Few per hpf (None-Few); Bilirubin,Urine Negative (Negative); Blood,Urine Small (Negative); Clarity,Urine Clear (Clear); Color,Urine Light-Yellow (Yellow); Glucose,Urine (UA) Normal (Normal); Ketones,Urine Negative (Negative); Leukocyte Esterase,Urine Moderate (Negative); Mucus,Urine Few per lpf (None-Few); Nitrite,Urine Negative (Negative); Protein,Urine Trace mg/dL (Neg-Trace); Specific Gravity,Urine 1.013 (1.010-1.025); Squamous Epithelial Cell,Urine Few per hpf (None-Few); Urobilinogen,Urine Normal (Normal); WBC,Urine 0-3 per hpf (0-3)
[2020-07-10] MEDS ORDERED: Famotidine 20 MG/2 ML VIAL IVP ONE (15:23)
[2020-07-10] MEDS ORDERED: *HR* LORazepam 0.5 MG TABLET PO PRN (16:25)
[2020-07-10] MEDS ORDERED: *HR* Dextrose 50 % in Water (Vial) 50 ML VIAL IVP PRN (16:29)
[2020-07-10] MEDS ORDERED: D5% in Water 1,000 ML IVC PRN (16:29)
[2020-07-10] MEDS ORDERED: Dextrose Gel 15 GM/37.5 ML TUBE PO PRN ×2 (16:29)
[2020-07-10] MEDS ORDERED: Ondansetron 4 MG/2 ML VIAL IVP PRN (16:44)
[2020-07-10] MEDS ORDERED: Acetaminophen 325 MG TABLET PO PRN (16:44)
[2020-07-10] MEDS ORDERED: Naloxone 0.4 MG/ML INJ IVP PRN (16:44)
[2020-07-10] MEDS ORDERED: hydrOXYzine pamoate 25 MG CAPSULE PO PRN (16:58)
[2020-07-10 19:14] LABS: Adenovirus F 40/41 PCR Not detected (Not detect); Astrovirus PCR Not detected (Not detect); C.difficile Toxin A/B Gene PCR Not detected (Not detect); Campylobacter by PCR Not detected (Not detect); Cryptosporidium by PCR Not detected (Not detect); Cyclospora cayetanensis PCR Not detected (Not detect); E. coli O157 by PCR Not detected (Not detect); Entamoeba histolytica PCR Not detected (Not detect); Enteroaggregative E.coli(EAEC) Not detected (Not detect); Enteropathogenic E.coli(EPEC) Not detected (Not detect); Enterotoxigenic E.coli (ETEC) Not detected (Not detect); Giardia lamblia PCR Not detected (Not detect); Norovirus GI/GII PCR Not detected (Not detect); Plesiomonas shigelloides PCR Not detected (Not detect); Rotavirus A PCR Not detected (Not detect); Salmonella PCR Not detected (Not detect); Sapovirus PCR Not detected (Not detect); Shig/EnteroinvasiveE coli EIEC Not detected (Not detect); Shigalike tox-prod E coli STEC Not detected (Not detect); Vibrio PCR Not detected (Not detect); Vibrio cholerae PCR Not detected (Not detect); Yersinia enterocolitica PCR Not detected (Not detect)
[2020-07-10] MEDS: *HR* OxyCODONE/APAP 10/325 TABLET PO PRN (19:45)
[2020-07-10] MEDS: Melatonin 3 MG TABLET PO PRN (19:56)
[2020-07-10] MEDS: Lactobacillus 1 EACH CAP.SPRINK PO SCH (19:57)
[2020-07-10] MEDS: Sucralfate 1 GM TABLET PO SCH ×2 (19:57→21:10)
[2020-07-10] MEDS: Furosemide 20 MG TABLET PO SCH (19:57)
[2020-07-10] MEDS: QUEtiapine Fumarate 25 MG TABLET PO SCH (19:57)
[2020-07-10] MEDS: Insulin LISPRO 300 UNITS/3 ML VIAL SUBQ SCH ×2 (21:06→21:07)
[2020-07-10] MEDS: Piperacillin/Tazobactam 3.375 GM in 0.9 % Sodium Chloride Mini Bag 100 ML IVPB SCH (23:30)
[2020-07-11] MEDS: *HR* OxyCODONE/APAP 10/325 TABLET PO PRN (03:45)
[2020-07-11 06:15] LABS: Basophils % 0.9 %; Hematocrit 25.8 % (35.3-44.9); Immature Granulocytes % 0.4 % (0-4); Mean Platelet Volume 9.3 fL (9.4-12.4); Red Cell Distribution Width 15.4 % (11.5-14.5)
[2020-07-11 06:16] LABS: Eosinophils # 0.1 K/mcL (0.0-0.6); Eosinophils % 5.6 %; Hemoglobin 8.4 g/dL (11.5-15.4); Lymphocytes # 0.4 K/mcL (0.6-4.6); Lymphocytes % 15.4 %; Mean Corpuscular HGB Conc 32.6 g/dL (31.6-35.5); Mean Corpuscular Hemoglobin 30.1 pg (28.0-33.3); Mean Corpuscular Volume 92.5 fL (83.0-100.0); Monocytes # 0.2 K/mcL (0.0-1.3); Monocytes % 9.8 %; Neutrophils # 1.6 K/mcL (1.6-8.9); Red Blood Count 2.79 M/mcL (3.82-4.97); Segmented Neutrophils % 67.9 %; White Blood Count 2.3 K/mcL (4.3-11.1)
[2020-07-11 06:17] LABS: Platelet Count 67 K/mcL (140-400)
[2020-07-11 06:36] LABS: BUN/Creatinine Ratio 22 (6-26); Blood Urea Nitrogen 23 mg/dL (8-23); Calcium 8.3 mg/dL (8.6-10.3); Carbon Dioxide 27 mEq/L (23-29); Chloride 108 mEq/L (98-107); Glucose 98 mg/dL (70-105); Osmolality,Calculated 292 (280-300); Potassium 3.5 mEq/L (3.5-5.1); Sodium 139 mEq/L (136-145); eGFR For African Americans > 60 (> 60); eGFR For Non-African Americans 52 (> 60)
[2020-07-11] MEDS: Piperacillin/Tazobactam 3.375 GM in 0.9 % Sodium Chloride Mini Bag 100 ML IVPB SCH (09:30)
[2020-07-11] MEDS: Furosemide 20 MG TABLET PO SCH ×2 (09:31→16:58)
[2020-07-11] MEDS: Lactobacillus 1 EACH CAP.SPRINK PO SCH ×2 (09:31→20:42)
[2020-07-11] MEDS: Sucralfate 1 GM TABLET PO SCH ×4 (09:31→20:43)
[2020-07-11] MEDS: Aspirin Enteric Coated 81 MG Tablet PO SCH (09:31)
[2020-07-11] MEDS: QUEtiapine Fumarate 25 MG TABLET PO SCH ×2 (09:31→20:43)
[2020-07-11] MEDS: Cholecalciferol (D-3) 1,000 UNIT (25MCG) TABLET PO SCH (09:31)
[2020-07-11] MEDS: Insulin LISPRO 300 UNITS/3 ML VIAL SUBQ SCH ×4 (09:32→20:47)
[2020-07-11] MEDS: lisinopriL 10 MG TABLET PO SCH (09:37)
[2020-07-11 10:13] LABS: RBC,Pleural Fluid 2000 RBC/mcL
[2020-07-11 10:14] LABS: Appearance of Pleural Fl Hazy (Clear)
[2020-07-11 10:56] LABS: Glucose,Pleural Fluid 121 mg/dL (No Ref Range); LDH,Pleural Fluid 41 Units/L (No Ref Range); Total Protein,Pleural Fluid < 2.0 g/dL
[2020-07-11 12:28] LABS: Basophils,Pleural Fluid 0 %; Eosinophils,Pleural Fluid 0 %
[2020-07-11] MEDS: Melatonin 3 MG TABLET PO PRN (20:42)
[2020-07-12 07:50] LABS: Hemoglobin 7.7 g/dL (11.5-15.4)
[2020-07-12 07:52] LABS: Hematocrit 24.2 % (35.3-44.9); Mean Corpuscular HGB Conc 31.8 g/dL (31.6-35.5); Mean Corpuscular Hemoglobin 29.1 pg (28.0-33.3); Mean Corpuscular Volume 91.3 fL (83.0-100.0); Mean Platelet Volume 9.1 fL (9.4-12.4); Red Blood Count 2.65 M/mcL (3.82-4.97); Red Cell Distribution Width 15.2 % (11.5-14.5); White Blood Count 1.8 K/mcL (4.3-11.1)
[2020-07-12 08:05] LABS: Calcium 8.3 mg/dL (8.6-10.3); Potassium 4.2 mEq/L (3.5-5.1)
[2020-07-12 08:31] VITALS: BP 101/55
[2020-07-12] MEDS: Insulin LISPRO 300 UNITS/3 ML VIAL SUBQ SCH ×2 (08:50→11:43)
[2020-07-12] MEDS: lisinopriL 10 MG TABLET PO SCH (09:01)
[2020-07-12] MEDS: Furosemide 20 MG TABLET PO SCH (09:03)
[2020-07-12] MEDS: Lactobacillus 1 EACH CAP.SPRINK PO SCH (09:04)
[2020-07-12] MEDS: Sucralfate 1 GM TABLET PO SCH ×2 (09:04→11:42)
[2020-07-12] MEDS: Aspirin Enteric Coated 81 MG Tablet PO SCH (09:04)
[2020-07-12] MEDS: Cholecalciferol (D-3) 1,000 UNIT (25MCG) TABLET PO SCH (09:05)
[2020-07-12] MEDS: QUEtiapine Fumarate 25 MG TABLET PO SCH (09:05)
[2020-07-12 15:26] LABS: Fluid Source for Cholesterol PLEURAL FLUID
[2020-07-12 20:05] LABS: Fluid Source for Albumin R PLEURAL FLUID
[2020-07-13 12:13] LABS: Cholesterol,Body Fluid 17 mg/dL
== END 2020-07-12 13:45 | disposition hospice, home (50) | DRG 187 ==
LOC: EMEROOARM 13:24 → 3ANU 13:24 → SUATTDRO 17:18 → 3ANU 17:47
PROVIDERS: ADMIT Internal Medicine; ATTEND Internal Medicine
PROC: ENDOAPI (2020-07-11 09:00)

== ENCOUNTER 2020-08-11 02:15 | Inpatient (IN) ==
[2020-08-11] MEDS ORDERED: Ipratropium/Albuterol Neb 3 ML ONE (02:19)
[2020-08-11] MEDS ORDERED: methylPREDNISolone 125 MG/2 ML VIAL ONE (02:19)
[2020-08-11] MEDS ORDERED: methylPREDNISolone 125 MG/2 ML VIAL IVP ONE (02:31)
[2020-08-11] MEDS ORDERED: Ipratropium/Albuterol Neb 3 ML IH ONE (02:36)
[2020-08-11 02:41] LABS: ABG Base Excess 1 mEq/L (-2 to 3); ABG HCO3 27 mEq/L (21-27); ABG Oxygen Saturation 94 % (95-98); ABG PCO2 53 mmHg (35-45); ABG PH 7.32 pH Units (7.32-7.45); ABG PO2 77 mmHg (85-104); ABG TCO2 29 mEq/L (20-26); Blood Gas Modality BiLevel; Blood Gas Pressure Support 6 cm H2O
[2020-08-11 03:36] LABS: Basophils % 0.3 %; Eosinophils # 0.1 K/mcL (0.0-0.6); Eosinophils % 2.2 %; Hematocrit 26.2 % (35.3-44.9); Hemoglobin 8.5 g/dL (11.5-15.4); Immature Granulocytes % 0.6 % (0-4); Lymphocytes # 0.3 K/mcL (0.6-4.6); Lymphocytes % 10.4 %; Mean Corpuscular HGB Conc 32.4 g/dL (31.6-35.5); Mean Corpuscular Hemoglobin 29.8 pg (28.0-33.3); Mean Corpuscular Volume 91.9 fL (83.0-100.0); Mean Platelet Volume 9.7 fL (9.4-12.4); Monocytes # 0.2 K/mcL (0.0-1.3); Monocytes % 5.4 %; Neutrophils # 2.6 K/mcL (1.6-8.9); Red Blood Count 2.85 M/mcL (3.82-4.97); Red Cell Distribution Width 14.1 % (11.5-14.5); Segmented Neutrophils % 81.1 %; White Blood Count 3.2 K/mcL (4.3-11.1)
[2020-08-11 03:37] LABS: Platelet Count 40 K/mcL (140-400)
[2020-08-11 03:38] LABS: Immature Platelets 1.5 % (1.1-6.1)
[2020-08-11 03:53] LABS: BUN/Creatinine Ratio 20 (6-26); Blood Urea Nitrogen 28 mg/dL (8-23); Calcium 8.5 mg/dL (8.6-10.3); Carbon Dioxide 25 mEq/L (23-29); Chloride 97 mEq/L (98-107); Glucose 158 mg/dL (70-105); Osmolality,Calculated 279 (280-300); Potassium 3.9 mEq/L (3.5-5.1); Sodium 130 mEq/L (136-145); Troponin I < 0.03 ng/mL (< 0.04); eGFR For African Americans 45 (> 60); eGFR For Non-African Americans 37 (> 60)
[2020-08-11] MEDS ORDERED: Naloxone 0.4 MG/ML INJ IVP PRN (05:20)
[2020-08-11 06:57] LABS: Lactate Dehydrogenase 151 Units/L (140-271); Total Protein 6.5 g/dL (6.4-8.9)
[2020-08-11] MEDS ORDERED: D5% in Water 1,000 ML IVC PRN (07:02)
[2020-08-11] MEDS ORDERED: Dextrose Gel 15 GM/37.5 ML TUBE PO PRN ×2 (07:02)
[2020-08-11] MEDS ORDERED: *HR* Dextrose 50 % in Water (Vial) 50 ML VIAL IVP PRN (07:02)
[2020-08-11 08:50] LABS: Bilirubin,Urine Negative (Negative); Blood,Urine Negative (Negative); Clarity,Urine Clear (Clear); Color,Urine Light-Yellow (Yellow); Glucose,Urine (UA) Normal (Normal); Ketones,Urine Negative (Negative); Leukocyte Esterase,Urine Negative (Negative); Nitrite,Urine Negative (Negative); PH,Urine 5.5 pH Units (5.0-8.0); Protein,Urine Negative (Neg-Trace); Urobilinogen,Urine Normal (Normal)
[2020-08-11] MEDS: Dexamethasone 4 MG/ML VIAL IVP SCH (08:53)
[2020-08-11] MEDS: Furosemide 20 MG/2 ML VIAL IVP SCH (08:54)
[2020-08-11] MEDS: Insulin LISPRO 300 UNITS/3 ML VIAL SUBQ SCH ×3 (08:54→17:52)
[2020-08-11 09:02] LABS: RBC,Pleural Fluid 12000 RBC/mcL
[2020-08-11 09:22] LABS: Glucose,Pleural Fluid 159 mg/dL (No Ref Range); LDH,Pleural Fluid 46 Units/L (No Ref Range); Total Protein,Pleural Fluid < 2.0 g/dL
[2020-08-11 10:41] LABS: Appearance of Pleural Fl Cloudy (Clear); Eosinophils,Pleural Fluid 0 %
[2020-08-11] MEDS ORDERED: *HR* LORazepam 0.5 MG TABLET PO PRN (13:51)
[2020-08-11] MEDS: Sucralfate 1 GM TABLET PO SCH ×2 (17:52→19:59)
[2020-08-11] MEDS: QUEtiapine Fumarate 25 MG TABLET PO SCH (19:56)
[2020-08-11] MEDS ORDERED: Insulin LISPRO 300 UNITS/3 ML VIAL SUBQ SCH (21:00)
[2020-08-12] MEDS: Acetaminophen 325 MG TABLET PO PRN ×2 (02:13→05:33)
[2020-08-12] MEDS ORDERED: Aspirin Enteric Coated 81 MG Tablet PO SCH (09:00)
[2020-08-12] MEDS ORDERED: lisinopriL 10 MG TABLET PO SCH (09:00)
[2020-08-12 09:15] LABS: Calcium 8.6 mg/dL (8.6-10.3); Magnesium 1.3 mg/dL (1.6-2.6); Phosphorous 2.6 mg/dL (2.7-4.5); Potassium 3.9 mEq/L (3.5-5.1)
[2020-08-12] MEDS: Insulin LISPRO 300 UNITS/3 ML VIAL SUBQ SCH ×2 (09:35→14:16)
[2020-08-12] MEDS: Dexamethasone 4 MG/ML VIAL IVP SCH (09:50)
[2020-08-12] MEDS ORDERED: Magnesium Oxide 400 MG TABLET PO ONE (09:50)
[2020-08-12] MEDS: QUEtiapine Fumarate 25 MG TABLET PO SCH (09:51)
[2020-08-12] MEDS: Furosemide 20 MG/2 ML VIAL IVP SCH (09:51)
[2020-08-12] MEDS: Sucralfate 1 GM TABLET PO SCH ×2 (09:52→12:38)
[2020-08-12 10:58] VITALS: BP 126/58
== END 2020-08-12 15:12 | disposition hospice, home (50) | DRG 291 ==
LOC: 2NENU 02:15 → EMEROOARM 02:15 → SUATTDRO 04:46 → 2NENU 05:20
PROVIDERS: ADMIT Family Medicine; ATTEND Internal Medicine

== ENCOUNTER 2020-08-18 23:23 | Inpatient (IN) ==
[2020-08-18] MEDS ORDERED: methylPREDNISolone 125 MG/2 ML VIAL IVP ONE (23:30)
[2020-08-18] MEDS ORDERED: Ipratropium/Albuterol Neb 3 ML IH ONE (23:30)
[2020-08-19 01:31] LABS: Basophils % 0.1 %; Lymphocytes % 2.1 %; Monocytes % 7.6 %
[2020-08-19 01:33] LABS: Immature Granulocytes % 1.4 % (0-4); Immature Platelets 1.6 % (1.1-6.1); Lymphocytes # 0.2 K/mcL (0.6-4.6); Mean Corpuscular HGB Conc 32.1 g/dL (31.6-35.5); Mean Corpuscular Hemoglobin 29.4 pg (28.0-33.3); Mean Corpuscular Volume 91.5 fL (83.0-100.0); Mean Platelet Volume 9.6 fL (9.4-12.4); Monocytes # 0.7 K/mcL (0.0-1.3); Neutrophils # 8.5 K/mcL (1.6-8.9); Platelet Count 104 K/mcL (140-400); Red Blood Count 3.06 M/mcL (3.82-4.97); Red Cell Distribution Width 15.3 % (11.5-14.5); Segmented Neutrophils % 88.8 %; White Blood Count 9.6 K/mcL (4.3-11.1)
[2020-08-19 01:53] LABS: Calcium 8.5 mg/dL (8.6-10.3); Potassium 4.3 mEq/L (3.5-5.1)
[2020-08-19 02:06] LABS: Troponin I 0.06 ng/mL (< 0.04)
[2020-08-19 02:56] LABS: Appearance of Pleural Fl Cloudy (Clear)
[2020-08-19 03:09] LABS: RBC,Pleural Fluid 5000 RBC/mcL
[2020-08-19] MEDS ORDERED: cefTRIAXone 1,000 MG in 0.9 % Sodium Chloride Mini Bag 100 ML IVPB ONE (03:16)
[2020-08-19] MEDS ORDERED: Doxycycline 100 MG in 0.9 % Sodium Chloride Mini Bag 100 ML IVPB ONE (03:16)
[2020-08-19 03:22] LABS: Glucose,Pleural Fluid 375 mg/dL (No Ref Range); LDH,Pleural Fluid 40 Units/L (No Ref Range); Total Protein,Pleural Fluid < 2.0 g/dL
[2020-08-19 04:15] LABS: Basophils,Pleural Fluid 0 %; Eosinophils,Pleural Fluid 0 %
[2020-08-19] MEDS ORDERED: Ondansetron 4 MG/2 ML VIAL IVP PRN (06:27)
[2020-08-19] MEDS ORDERED: Naloxone 0.4 MG/ML INJ IVP PRN (06:27)
[2020-08-19] MEDS ORDERED: D5% in Water 1,000 ML IVC PRN (06:29)
[2020-08-19] MEDS ORDERED: Dextrose Gel 15 GM/37.5 ML TUBE PO PRN ×2 (06:29)
[2020-08-19] MEDS ORDERED: *HR* Dextrose 50 % in Water (Vial) 50 ML VIAL IVP PRN (06:29)
[2020-08-19] MEDS ORDERED: Ipratropium/Albuterol Neb 3 ML IH PRN (06:30)
[2020-08-19] MEDS: Insulin LISPRO 300 UNITS/3 ML VIAL SUBQ SCH ×4 (08:09→20:16)
[2020-08-19] MEDS: cefTRIAXone 1,000 MG in 0.9 % Sodium Chloride Mini Bag 100 ML IVPB SCH (08:10)
[2020-08-19] MEDS ORDERED: Ringers Solution, Lactated 500 ML IVC SCH (09:15)
[2020-08-19] MEDS: Budesonide/Formoterol 160/4.5 1 PUFF INH IH SCH ×2 (11:41→22:07)
[2020-08-19] MEDS: Sucralfate 1 GM TABLET PO SCH ×3 (13:01→21:23)
[2020-08-19] MEDS: Acetaminophen 325 MG TABLET PO PRN ×2 (13:02→21:23)
[2020-08-19 17:57] LABS: Bacteria,Urine Few per hpf (None-Few); Bilirubin,Urine Negative (Negative); Blood,Urine Negative (Negative); Clarity,Urine Clear (Clear); Color,Urine Light-Yellow (Yellow); Glucose,Urine (UA) 70 mg/dL (Normal); Ketones,Urine Negative (Negative); Leukocyte Esterase,Urine Trace (Negative); Mucus,Urine Few per lpf (None-Few); Nitrite,Urine Negative (Negative); Protein,Urine Negative (Neg-Trace); RBC,Urine 0-3 per hpf (0-3); Specific Gravity,Urine 1.017 (1.010-1.025); Squamous Epithelial Cell,Urine Few per hpf (None-Few); Urobilinogen,Urine Normal (Normal); WBC,Urine 0-3 per hpf (0-3)
[2020-08-19] MEDS: Doxycycline 100 MG in 0.9 % Sodium Chloride Mini Bag 100 ML IVPB SCH (20:15)
[2020-08-19] MEDS: QUEtiapine Fumarate 25 MG TABLET PO SCH (21:23)
[2020-08-19] MEDS: Lactobacillus 1 EACH CAP.SPRINK PO SCH (21:23)
[2020-08-19] MEDS: Insulin DETEMIR 100 UNIT/ML X5UNITS SUBQ SCH (23:03)
[2020-08-20] MEDS ORDERED: *HR* LORazepam 0.5 MG TABLET PO ONE (00:10)
[2020-08-20] MEDS ORDERED: Haloperidol Lactate 5 MG/ML VIAL IVP ONE (01:14)
[2020-08-20 06:05] LABS: INR 1.3; Prothrombin Time 14.6 Seconds (9.4-12.1)
[2020-08-20] MEDS: Doxycycline 100 MG in 0.9 % Sodium Chloride Mini Bag 100 ML IVPB SCH ×2 (06:07→16:35)
[2020-08-20 06:18] LABS: Albumin 2.9 g/dL (3.5-5.7); Albumin/Globulin Ratio 0.8 (1.1-2.2); Bilirubin,Total 0.5 mg/dL (0.3-1.0); Globulin 3.5 g/dL (2.4-3.5); Magnesium 1.5 mg/dL (1.6-2.6); Potassium 5.1 mEq/L (3.5-5.1); Total Protein 6.4 g/dL (6.4-8.9)
[2020-08-20] MEDS: Budesonide/Formoterol 160/4.5 1 PUFF INH IH SCH ×2 (07:32→22:43)
[2020-08-20] MEDS ORDERED: Lidocaine 1% 20 ML MDV ONE (07:55)
[2020-08-20 08:14] LABS: Eosinophils % 0.5 %; Immature Granulocytes % 1.1 % (0-4); Red Cell Distribution Width 15.7 % (11.5-14.5)
[2020-08-20 08:15] LABS: Hemoglobin 9.1 g/dL (11.5-15.4); Lymphocytes # 0.6 K/mcL (0.6-4.6); Lymphocytes % 6.8 %; Mean Corpuscular HGB Conc 32.5 g/dL (31.6-35.5); Mean Corpuscular Hemoglobin 29.4 pg (28.0-33.3); Mean Corpuscular Volume 90.3 fL (83.0-100.0); Mean Platelet Volume 9.4 fL (9.4-12.4); Monocytes # 0.6 K/mcL (0.0-1.3); Monocytes % 7.2 %; Neutrophils # 6.8 K/mcL (1.6-8.9); Segmented Neutrophils % 84.4 %; White Blood Count 8.1 K/mcL (4.3-11.1)
[2020-08-20 08:19] LABS: Platelet Count 82 K/mcL (140-400)
[2020-08-20 10:28] LABS: Hematocrit 27.2 % (35.3-44.9); Hemoglobin 8.8 g/dL (11.5-15.4)
[2020-08-20] MEDS: Sucralfate 1 GM TABLET PO SCH ×4 (10:42→21:19)
[2020-08-20] MEDS: Lactobacillus 1 EACH CAP.SPRINK PO SCH ×2 (10:43→21:19)
[2020-08-20] MEDS: QUEtiapine Fumarate 25 MG TABLET PO SCH ×2 (10:43→21:21)
[2020-08-20] MEDS: cefTRIAXone 1,000 MG in 0.9 % Sodium Chloride Mini Bag 100 ML IVPB SCH (10:52)
[2020-08-20] MEDS: Insulin DETEMIR 100 UNIT/ML X5UNITS SUBQ SCH (10:52)
[2020-08-20] MEDS: Insulin LISPRO 300 UNITS/3 ML VIAL SUBQ SCH ×4 (10:57→21:16)
[2020-08-20] MEDS: *HR* Heparin 5,000 UNIT/ML VIAL SQ SCH (16:35)
[2020-08-20] MEDS ORDERED: hydrOXYzine pamoate 25 MG CAPSULE PO PRN (18:09)
[2020-08-20] MEDS ORDERED: MOM Conc 10 ML UD.LIQ PO PRN (18:32)
[2020-08-20] MEDS: *HR* LORazepam 0.5 MG TABLET PO PRN (18:42)
[2020-08-20] MEDS: Furosemide 20 MG TABLET PO SCH (22:17)
[2020-08-21] MEDS: *HR* LORazepam 0.5 MG TABLET PO PRN ×2 (01:50→20:24)
[2020-08-21] MEDS: Doxycycline 100 MG in 0.9 % Sodium Chloride Mini Bag 100 ML IVPB SCH (05:48)
[2020-08-21] MEDS: *HR* Heparin 5,000 UNIT/ML VIAL SQ SCH ×2 (05:53→18:59)
[2020-08-21 06:34] LABS: Hemoglobin 9.2 g/dL (11.5-15.4); Red Cell Distribution Width 15.6 % (11.5-14.5)
[2020-08-21 06:35] LABS: Hematocrit 28.5 % (35.3-44.9); Immature Platelets 2.3 % (1.1-6.1); Mean Corpuscular HGB Conc 32.3 g/dL (31.6-35.5); Mean Corpuscular Hemoglobin 29.3 pg (28.0-33.3); Mean Corpuscular Volume 90.8 fL (83.0-100.0); Mean Platelet Volume 10.2 fL (9.4-12.4); Red Blood Count 3.14 M/mcL (3.82-4.97); White Blood Count 8.3 K/mcL (4.3-11.1)
[2020-08-21 07:04] LABS: Calcium 8.4 mg/dL (8.6-10.3); Magnesium 2.2 mg/dL (1.6-2.6); Phosphorous 2.4 mg/dL (2.7-4.5); Potassium 5.8 mEq/L (3.5-5.1)
[2020-08-21 07:24] LABS: Folate > 22.3 ng/mL (3.0-16.0); Vitamin B12 595 pg/mL (250-1100)
[2020-08-21] MEDS ORDERED: Iron Sucrose Complex 400 MG in 0.9 % Sodium Chloride 250 ML IVPB ONE (08:15)
[2020-08-21] MEDS: cefTRIAXone 1,000 MG in 0.9 % Sodium Chloride Mini Bag 100 ML IVPB SCH (09:09)
[2020-08-21] MEDS: Lactobacillus 1 EACH CAP.SPRINK PO SCH ×2 (09:09→20:21)
[2020-08-21] MEDS: Furosemide 20 MG TABLET PO SCH ×2 (09:09→16:21)
[2020-08-21] MEDS: Cholecalciferol (D-3) 1,000 UNIT (25MCG) TABLET PO SCH (09:09)
[2020-08-21] MEDS: Aspirin Enteric Coated 81 MG Tablet PO SCH (09:09)
[2020-08-21] MEDS: QUEtiapine Fumarate 25 MG TABLET PO SCH ×2 (09:09→20:21)
[2020-08-21] MEDS: Sucralfate 1 GM TABLET PO SCH ×4 (09:09→20:21)
[2020-08-21] MEDS: Insulin LISPRO 300 UNITS/3 ML VIAL SUBQ SCH ×4 (09:11→20:23)
[2020-08-21] MEDS: Budesonide/Formoterol 160/4.5 1 PUFF INH IH SCH ×2 (11:17→22:20)
[2020-08-21] MEDS: *HR* OxyCODONE/APAP 5/325 TABLET PO PRN (18:59)
[2020-08-21] MEDS: Doxycycline 100 MG CAPSULE PO SCH (20:20)
[2020-08-21 20:25] LABS: Estimated Average Glucose 128 mg/dl; Hemoglobin A1C 6.1 %
[2020-08-22] MEDS: *HR* OxyCODONE/APAP 5/325 TABLET PO PRN (04:00)
[2020-08-22] MEDS: *HR* LORazepam 0.5 MG TABLET PO PRN (04:00)
[2020-08-22] MEDS: *HR* Heparin 5,000 UNIT/ML VIAL SQ SCH (05:34)
[2020-08-22 05:59] LABS: Mean Corpuscular HGB Conc 32.7 g/dL (31.6-35.5)
[2020-08-22 06:00] LABS: Hematocrit 27.2 % (35.3-44.9); Hemoglobin 8.9 g/dL (11.5-15.4); Immature Platelets 3.5 % (1.1-6.1); Mean Corpuscular Hemoglobin 29.8 pg (28.0-33.3); Mean Platelet Volume 9.7 fL (9.4-12.4); Red Blood Count 2.99 M/mcL (3.82-4.97); Red Cell Distribution Width 15.6 % (11.5-14.5); White Blood Count 14.6 K/mcL (4.3-11.1)
[2020-08-22 06:37] LABS: Magnesium 2.2 mg/dL (1.6-2.6); Phosphorous 4.4 mg/dL (2.7-4.5); Potassium 3.9 mEq/L (3.5-5.1)
[2020-08-22] MEDS ORDERED: Albumin 25% 25gram/100mL 25 GM/100 ML IV.SOLN IVPB ONE (07:42)
[2020-08-22 07:54] VITALS: BP 120/67
[2020-08-22] MEDS: cefTRIAXone 1,000 MG in 0.9 % Sodium Chloride Mini Bag 100 ML IVPB SCH (09:24)
[2020-08-22] MEDS: Aspirin Enteric Coated 81 MG Tablet PO SCH (09:25)
[2020-08-22] MEDS: Furosemide 20 MG TABLET PO SCH (09:25)
[2020-08-22] MEDS: QUEtiapine Fumarate 25 MG TABLET PO SCH (09:25)
[2020-08-22] MEDS: Cholecalciferol (D-3) 1,000 UNIT (25MCG) TABLET PO SCH (09:25)
[2020-08-22] MEDS: Sucralfate 1 GM TABLET PO SCH (09:25)
[2020-08-22] MEDS: Lactobacillus 1 EACH CAP.SPRINK PO SCH (09:25)
[2020-08-22] MEDS: Doxycycline 100 MG CAPSULE PO SCH (09:26)
[2020-08-22] MEDS: Insulin LISPRO 300 UNITS/3 ML VIAL SUBQ SCH (09:27)
[2020-08-22] MEDS: Budesonide/Formoterol 160/4.5 1 PUFF INH IH SCH (10:23)
== END 2020-08-22 14:28 | disposition hospice, home (50) | DRG 177 ==
LOC: EMEROOARM 23:23 → CDU 23:23 → SUATTDRO 08-19 04:23 → 2NENU 08-19 20:49
PROVIDERS: ADMIT Student in an Organized Health Care Education/Training Program; ATTEND Internal Medicine

== ENCOUNTER 2020-08-24 20:55 | Observation (INO) ==
[2020-08-24] MEDS ORDERED: Isovue-370 500 ML BOTTLE IVP ONE (21:33)
[2020-08-24 21:52] LABS: Basophils % 0.2 %; Eosinophils # 0.2 K/mcL (0.0-0.6); Eosinophils % 2.3 %; Hematocrit 24.6 % (35.3-44.9); Hemoglobin 7.8 g/dL (11.5-15.4); Immature Granulocytes % 0.8 % (0-4); Immature Platelets 1.8 % (1.1-6.1); Lymphocytes # 0.4 K/mcL (0.6-4.6); Lymphocytes % 6.3 %; Mean Corpuscular HGB Conc 31.7 g/dL (31.6-35.5); Mean Corpuscular Hemoglobin 29.4 pg (28.0-33.3); Mean Corpuscular Volume 92.8 fL (83.0-100.0); Mean Platelet Volume 9.9 fL (9.4-12.4); Monocytes # 0.6 K/mcL (0.0-1.3); Monocytes % 9.5 %; Red Blood Count 2.65 M/mcL (3.82-4.97); Red Cell Distribution Width 15.9 % (11.5-14.5); Segmented Neutrophils % 80.9 %; White Blood Count 6.6 K/mcL (4.3-11.1)
[2020-08-24 21:55] LABS: Neutrophils # 5.3 K/mcL (1.6-8.9)
[2020-08-24 21:56] LABS: Platelet Count 76 K/mcL (140-400)
[2020-08-24 21:57] LABS: INR 1.2; Prothrombin Time 14.3 Seconds (9.4-12.1)
[2020-08-24 22:11] LABS: Albumin 2.5 g/dL (3.5-5.7); Albumin/Globulin Ratio 0.9 (1.1-2.2); Bilirubin,Direct 0.2 mg/dL (0.0-0.2); Bilirubin,Indirect 0.4 mg/dL (0.0-1.0); Bilirubin,Total 0.6 mg/dL (0.3-1.0); Calcium 7.6 mg/dL (8.6-10.3); Globulin 2.7 g/dL (2.4-3.5); Potassium 4.3 mEq/L (3.5-5.1); Total Protein 5.2 g/dL (6.4-8.9)
[2020-08-24 22:23] LABS: Bilirubin,Urine Negative (Negative); Blood,Urine Negative (Negative); Clarity,Urine Clear (Clear); Color,Urine Light-Yellow (Yellow); Glucose,Urine (UA) Normal (Normal); Ketones,Urine Negative (Negative); Leukocyte Esterase,Urine Negative (Negative); Nitrite,Urine Negative (Negative); Protein,Urine Negative (Neg-Trace); Specific Gravity,Urine 1.014 (1.010-1.025); Urobilinogen,Urine Normal (Normal)
[2020-08-24 22:24] LABS: Troponin I 0.04 ng/mL (< 0.04)
[2020-08-25] MEDS ORDERED: Lactulose Oral Soln 20 GM/30 ML UDC PO STA (01:48)
[2020-08-25] MEDS ORDERED: Melatonin 3 MG TABLET PO PRN (03:57)
[2020-08-25] MEDS ORDERED: Ondansetron 4 MG/2 ML VIAL IVP PRN (03:57)
[2020-08-25] MEDS ORDERED: Naloxone 0.4 MG/ML INJ IVP PRN (03:57)
[2020-08-25 05:19] LABS: Hematocrit 25.2 % (35.3-44.9); Mean Corpuscular Volume 92.6 fL (83.0-100.0); Red Blood Count 2.72 M/mcL (3.82-4.97); Red Cell Distribution Width 15.9 % (11.5-14.5)
[2020-08-25 05:21] LABS: Basophils % 0.2 %; Eosinophils # 0.1 K/mcL (0.0-0.6); Eosinophils % 2.4 %; Hemoglobin 8.1 g/dL (11.5-15.4); Immature Granulocytes % 0.9 % (0-4); Lymphocytes # 0.4 K/mcL (0.6-4.6); Lymphocytes % 9.4 %; Mean Corpuscular HGB Conc 32.1 g/dL (31.6-35.5); Mean Corpuscular Hemoglobin 29.8 pg (28.0-33.3); Mean Platelet Volume 9.9 fL (9.4-12.4); Monocytes # 0.4 K/mcL (0.0-1.3); Monocytes % 9.4 %; Neutrophils # 3.7 K/mcL (1.6-8.9); Platelet Count 66 K/mcL (140-400); Segmented Neutrophils % 77.7 %; White Blood Count 4.7 K/mcL (4.3-11.1)
[2020-08-25 05:26] LABS: INR 1.2; Prothrombin Time 14.1 Seconds (9.4-12.1)
[2020-08-25 05:42] LABS: Albumin 2.6 g/dL (3.5-5.7); Bilirubin,Total 0.8 mg/dL (0.3-1.0); Calcium 7.9 mg/dL (8.6-10.3); Globulin 2.6 g/dL (2.4-3.5); Magnesium 1.6 mg/dL (1.6-2.6); Phosphorous 2.9 mg/dL (2.7-4.5); Potassium 4.8 mEq/L (3.5-5.1); Total Protein 5.2 g/dL (6.4-8.9); Troponin I 0.04 ng/mL (< 0.04)
[2020-08-25] MEDS ORDERED: *HR* Dextrose 50 % in Water (Vial) 50 ML VIAL IVP PRN (06:48)
[2020-08-25] MEDS ORDERED: D5% in Water 1,000 ML IVC PRN (06:48)
[2020-08-25] MEDS ORDERED: Dextrose Gel 15 GM/37.5 ML TUBE PO PRN ×2 (06:48)
[2020-08-25] MEDS: Insulin LISPRO 300 UNITS/3 ML VIAL SUBQ SCH ×3 (10:20→16:36)
[2020-08-25] MEDS: Lactulose Oral Soln 20 GM/30 ML UDC PO SCH ×2 (10:28→22:00)
[2020-08-25] MEDS: Nystatin POWDER 30 GM BOTTLE TP SCH ×3 (12:27→22:01)
[2020-08-25] MEDS ORDERED: Insulin LISPRO 300 UNITS/3 ML VIAL SUBQ SCH (21:00)
[2020-08-26] MEDS ORDERED: Acetaminophen 325 MG TABLET PO ONE (03:48)
[2020-08-26] MEDS ORDERED: hydrOXYzine pamoate 25 MG CAPSULE PO PRN (08:19)
[2020-08-26] MEDS ORDERED: *HR* OxyCODONE/APAP 10/325 TABLET PO PRN (08:19)
[2020-08-26] MEDS ORDERED: *HR* LORazepam 0.5 MG TABLET PO PRN (08:19)
[2020-08-26] MEDS ORDERED: *HR* Metformin 500 MG TABLET PO SCH (08:30)
[2020-08-26] MEDS ORDERED: Furosemide 20 MG TABLET PO SCH (08:30)
[2020-08-26] MEDS ORDERED: lisinopriL 10 MG TABLET PO SCH (09:00)
[2020-08-26] MEDS ORDERED: Cholecalciferol (D-3) 1,000 UNIT (25MCG) TABLET PO SCH (09:00)
[2020-08-26] MEDS ORDERED: QUEtiapine Fumarate 25 MG TABLET PO SCH (09:00)
[2020-08-26] MEDS ORDERED: Lactobacillus 1 EACH CAP.SPRINK PO SCH (09:00)
[2020-08-26] MEDS ORDERED: Aspirin Enteric Coated 81 MG Tablet PO SCH (09:00)
[2020-08-26] MEDS: Insulin LISPRO 300 UNITS/3 ML VIAL SUBQ SCH (09:09)
[2020-08-26] MEDS: Nystatin POWDER 30 GM BOTTLE TP SCH (09:11)
[2020-08-26] MEDS: Lactulose Oral Soln 20 GM/30 ML UDC PO SCH (09:11)
[2020-08-26] MEDS ORDERED: Budesonide/Formoterol 160/4.5 1 PUFF INH IH SCH (10:00)
[2020-08-26 10:49] VITALS: BP 102/62
[2020-08-26] MEDS ORDERED: Sucralfate 1 GM TABLET PO SCH (11:30)
== END 2020-08-26 11:15 | disposition hospice, home (50) ==
LOC: EMEROOARM 20:55 → 2ANU 20:55 → SUATTDRO 08-25 02:20 → 2ANU 08-25 03:16
PROVIDERS: ADMIT Internal Medicine; ATTEND Internal Medicine

== ENCOUNTER 2020-09-07 22:16 | Observation (INO) ==
[2020-09-07] MEDS ORDERED: Isovue-370 500 ML BOTTLE IVP ONE (22:28)
[2020-09-07 22:47] LABS: Hematocrit 25.3 % (35.3-44.9); Hemoglobin 7.9 g/dL (11.5-15.4); Immature Platelets 1.6 % (1.1-6.1); Mean Corpuscular HGB Conc 31.2 g/dL (31.6-35.5); Mean Corpuscular Hemoglobin 29.6 pg (28.0-33.3); Mean Corpuscular Volume 94.8 fL (83.0-100.0); Mean Platelet Volume 8.9 fL (9.4-12.4); Red Blood Count 2.67 M/mcL (3.82-4.97); Red Cell Distribution Width 15.6 % (11.5-14.5); White Blood Count 2.3 K/mcL (4.3-11.1)
[2020-09-07 22:53] LABS: INR 1.2; Prothrombin Time 13.4 Seconds (9.4-12.1)
[2020-09-07 23:12] LABS: Alanine Aminotransferase 24 Units/L (7-52); Albumin 2.9 g/dL (3.5-5.7); Albumin/Globulin Ratio 0.9 (1.1-2.2); Alkaline Phosphatase 118 Units/L (34-104); Aspartate Amino Transferase 27 Units/L (13-39); BUN/Creatinine Ratio 34 (6-26); Bilirubin,Direct 0.1 mg/dL (0.0-0.2); Bilirubin,Indirect 0.4 mg/dL (0.0-1.0); Bilirubin,Total 0.5 mg/dL (0.3-1.0); Blood Urea Nitrogen 64 mg/dL (8-23); Calcium 8.7 mg/dL (8.6-10.3); Carbon Dioxide 18 mEq/L (23-29); Chloride 102 mEq/L (98-107); Globulin 3.4 g/dL (2.4-3.5); Glucose 130 mg/dL (70-105); Lipase 13 Units/L (11-82); Magnesium 1.4 mg/dL (1.6-2.6); Osmolality,Calculated 286 (280-300); Potassium 5.1 mEq/L (3.5-5.1); Sodium 128 mEq/L (136-145); Total Protein 6.3 g/dL (6.4-8.9); Troponin I < 0.03 ng/mL (< 0.04); eGFR For African Americans 31 (> 60); eGFR For Non-African Americans 26 (> 60)
[2020-09-07 23:47] LABS: Bilirubin,Urine Negative (Negative); Blood,Urine Negative (Negative); Clarity,Urine Clear (Clear); Color,Urine Light-Yellow (Yellow); Glucose,Urine (UA) Normal (Normal); Ketones,Urine Negative (Negative); Leukocyte Esterase,Urine Negative (Negative); Nitrite,Urine Negative (Negative); Protein,Urine Negative (Neg-Trace); Specific Gravity,Urine 1.012 (1.010-1.025); Urobilinogen,Urine Normal (Normal)
[2020-09-08] MEDS ORDERED: Acetaminophen 325 MG TABLET PO PRN (01:06)
[2020-09-08] MEDS ORDERED: Ondansetron 4 MG/2 ML VIAL IVP PRN (01:06)
[2020-09-08] MEDS ORDERED: Naloxone 0.4 MG/ML INJ IVP PRN (01:06)
[2020-09-08] MEDS ORDERED: D5% in Water 1,000 ML IVC PRN (01:08)
[2020-09-08] MEDS ORDERED: *HR* Dextrose 50 % in Water (Vial) 50 ML VIAL IVP PRN (01:08)
[2020-09-08] MEDS ORDERED: Dextrose Gel 15 GM/37.5 ML TUBE PO PRN ×2 (01:08)
[2020-09-08] MEDS: 0.9 % Sodium Chloride 1,000 ML IVC SCH (03:02)
[2020-09-08 04:55] LABS: Basophils % 0.5 %; Immature Granulocytes % 0.5 % (0-4); Red Blood Count 2.71 M/mcL (3.82-4.97)
[2020-09-08 04:57] LABS: Eosinophils % 2.1 %; Hematocrit 25.3 % (35.3-44.9); Hemoglobin 7.9 g/dL (11.5-15.4); Immature Platelets 2.5 % (1.1-6.1); Lymphocytes # 0.4 K/mcL (0.6-4.6); Lymphocytes % 22.8 %; Mean Corpuscular HGB Conc 31.2 g/dL (31.6-35.5); Mean Corpuscular Hemoglobin 29.2 pg (28.0-33.3); Mean Corpuscular Volume 93.4 fL (83.0-100.0); Mean Platelet Volume 10.2 fL (9.4-12.4); Monocytes # 0.3 K/mcL (0.0-1.3); Red Cell Distribution Width 15.4 % (11.5-14.5); Segmented Neutrophils % 60.1 %; White Blood Count 1.9 K/mcL (4.3-11.1)
[2020-09-08 05:00] LABS: Neutrophils # 1.1 K/mcL (1.6-8.9); Platelet Count 70 K/mcL (140-400)
[2020-09-08 05:03] LABS: Albumin 2.8 g/dL (3.5-5.7); Albumin/Globulin Ratio 0.9 (1.1-2.2); Bilirubin,Total 0.6 mg/dL (0.3-1.0); Calcium 8.8 mg/dL (8.6-10.3); Chol/HDL Ratio 4.2 (0-4.9); Globulin 3.2 g/dL (2.4-3.5); Potassium 5.2 mEq/L (3.5-5.1)
[2020-09-08 05:07] LABS: Estimated Average Glucose 123 mg/dl; Hemoglobin A1C 5.9 %
[2020-09-08 05:18] LABS: Platelet Estimate Decreased (Normal)
[2020-09-08] MEDS: Insulin LISPRO 300 UNITS/3 ML VIAL SUBQ SCH ×3 (06:30→17:32)
[2020-09-08] MEDS ORDERED: Aspirin 81 MG TAB.CHEW PO SCH (09:00)
[2020-09-08] MEDS ORDERED: *HR* LORazepam 0.5 MG TABLET PO PRN (18:01)
[2020-09-08] MEDS ORDERED: Bisacodyl 10 MG RECTAL SUPPOSITORY RC PRN (18:01)
[2020-09-08] MEDS ORDERED: haloperidoL 1 MG TABLET PO PRN (18:43)
[2020-09-08] MEDS ORDERED: Morphine Sulfate Oral CONC 10 MG/0.5 ML ORAL.SYG PO PRN (19:26)
[2020-09-08] MEDS ORDERED: QUEtiapine Fumarate 25 MG TABLET PO SCH ×2 (21:00)
[2020-09-08] MEDS: Cholecalciferol (D-3) 1,000 UNIT (25MCG) TABLET PO SCH (21:03)
[2020-09-08] MEDS: Sucralfate 1 GM TABLET PO SCH (21:03)
[2020-09-09] MEDS: 0.9 % Sodium Chloride 1,000 ML IVC SCH (02:43)
[2020-09-09 03:48] LABS: Hemoglobin 7.2 g/dL (11.5-15.4); Mean Corpuscular Volume 93.8 fL (83.0-100.0); Mean Platelet Volume 9.7 fL (9.4-12.4)
[2020-09-09 03:49] LABS: Hematocrit 22.7 % (35.3-44.9); Immature Platelets 1.6 % (1.1-6.1); Mean Corpuscular HGB Conc 31.7 g/dL (31.6-35.5); Mean Corpuscular Hemoglobin 29.8 pg (28.0-33.3); Red Blood Count 2.42 M/mcL (3.82-4.97); Red Cell Distribution Width 15.9 % (11.5-14.5); White Blood Count 1.4 K/mcL (4.3-11.1)
[2020-09-09 04:07] LABS: Calcium 8.5 mg/dL (8.6-10.3); Magnesium 2.1 mg/dL (1.6-2.6); Phosphorous 4.1 mg/dL (2.7-4.5); Potassium 5.3 mEq/L (3.5-5.1)
[2020-09-09] MEDS ORDERED: *HR* Dextrose 50 % in Water (Vial) 50 ML VIAL IVP ONE (07:29)
[2020-09-09] MEDS ORDERED: Insulin Regular, Human 100 UNIT/ML IV ONE (07:29)
[2020-09-09] MEDS ORDERED: Insulin Human Regular 10 UNIT in 0.9 % Sodium Chloride 10 ML IV ONE (08:30)
[2020-09-09] MEDS: Cholecalciferol (D-3) 1,000 UNIT (25MCG) TABLET PO SCH (08:51)
[2020-09-09] MEDS: Sucralfate 1 GM TABLET PO SCH ×2 (08:51→12:01)
[2020-09-09] MEDS: Insulin LISPRO 300 UNITS/3 ML VIAL SUBQ SCH ×2 (08:51→12:01)
[2020-09-09] MEDS ORDERED: Aspirin 81 MG TAB.CHEW PO SCH (09:00)
[2020-09-09 10:54] VITALS: BP 97/58
== END 2020-09-09 13:29 | disposition hospice, home (50) ==
LOC: EMEROOARM 22:16 → 2ANU 22:16 → SUATTDRO 09-08 00:06 → 2ANU 09-08 00:23
PROVIDERS: ADMIT Family Medicine; ATTEND Internal Medicine

== ENCOUNTER 2020-10-05 23:52 | Inpatient (IN) ==
[2020-10-06 01:23] LABS: Basophils % 0.3 %; Eosinophils # 0.1 K/mcL (0.0-0.6); Eosinophils % 2.2 %; Hematocrit 23.1 % (35.3-44.9); Hemoglobin 7.2 g/dL (11.5-15.4); Immature Granulocytes % 0.6 % (0-4); Immature Platelets 1.3 % (1.1-6.1); Lymphocytes # 0.4 K/mcL (0.6-4.6); Lymphocytes % 12.7 %; Mean Corpuscular HGB Conc 31.2 g/dL (31.6-35.5); Mean Corpuscular Hemoglobin 30.4 pg (28.0-33.3); Mean Corpuscular Volume 97.5 fL (83.0-100.0); Mean Platelet Volume 9.2 fL (9.4-12.4); Monocytes # 0.2 K/mcL (0.0-1.3); Monocytes % 6.8 %; Neutrophils # 2.5 K/mcL (1.6-8.9); Platelet Count 92 K/mcL (140-400); Red Blood Count 2.37 M/mcL (3.82-4.97); Red Cell Distribution Width 14.3 % (11.5-14.5); Segmented Neutrophils % 77.4 %; White Blood Count 3.2 K/mcL (4.3-11.1)
[2020-10-06 01:43] LABS: Calcium 7.3 mg/dL (8.6-10.3); Potassium 4.4 mEq/L (3.5-5.1)
[2020-10-06 02:13] LABS: Bilirubin,Urine Negative (Negative); Blood,Urine Negative (Negative); Clarity,Urine Clear (Clear); Color,Urine Light-Yellow (Yellow); Glucose,Urine (UA) Normal (Normal); Ketones,Urine Negative (Negative); Leukocyte Esterase,Urine Negative (Negative); Nitrite,Urine Negative (Negative); PH,Urine 5.5 pH Units (5.0-8.0); Protein,Urine Negative (Neg-Trace); Specific Gravity,Urine 1.011 (1.010-1.025); Urobilinogen,Urine Normal (Normal)
[2020-10-06] MEDS ORDERED: Piperacillin/Tazobactam 3.375 GM in 0.9 % Sodium Chloride Mini Bag 100 ML IVPB ONE (02:53)
[2020-10-06] MEDS ORDERED: Naloxone 0.4 MG/ML INJ IVP PRN (04:19)
[2020-10-06] MEDS ORDERED: Dextrose Gel 15 GM/37.5 ML TUBE PO PRN ×2 (06:39)
[2020-10-06] MEDS ORDERED: D5% in Water 1,000 ML IVC PRN (06:39)
[2020-10-06] MEDS ORDERED: *HR* Dextrose 50 % in Water (Vial) 50 ML VIAL IVP PRN (06:39)
[2020-10-06] MEDS ORDERED: Acetaminophen 325 MG TABLET PO PRN (07:23)
[2020-10-06 07:55] LABS: Hematocrit 23.6 % (35.3-44.9); Hemoglobin 7.6 g/dL (11.5-15.4)
[2020-10-06] MEDS: Lactulose Oral Soln 20 GM/30 ML UDC PO ONE ×2 (08:09→11:14)
[2020-10-06] MEDS: Insulin LISPRO 300 UNITS/3 ML VIAL SUBQ SCH ×4 (08:09→21:16)
[2020-10-06] MEDS: Piperacillin/Tazobactam 3.375 GM in 0.9 % Sodium Chloride Mini Bag 100 ML IVPB SCH ×2 (11:11→17:54)
[2020-10-07] MEDS: Piperacillin/Tazobactam 3.375 GM in 0.9 % Sodium Chloride Mini Bag 100 ML IVPB SCH ×3 (03:12→23:48)
[2020-10-07 04:55] LABS: Albumin 2.7 g/dL (3.5-5.7); Albumin/Globulin Ratio 0.8 (1.1-2.2); Bilirubin,Total 0.7 mg/dL (0.3-1.0); Calcium 8.2 mg/dL (8.6-10.3); Globulin 3.5 g/dL (2.4-3.5); Potassium 4.6 mEq/L (3.5-5.1); Total Protein 6.2 g/dL (6.4-8.9)
[2020-10-07 05:47] LABS: Basophils % 0.4 %; Mean Corpuscular HGB Conc 33.8 g/dL (31.6-35.5); Mean Corpuscular Hemoglobin 30.5 pg (28.0-33.3)
[2020-10-07 05:49] LABS: Eosinophils # 0.1 K/mcL (0.0-0.6); Eosinophils % 1.3 %; Hematocrit 22.2 % (35.3-44.9); Hemoglobin 7.5 g/dL (11.5-15.4); Immature Granulocytes % 0.6 % (0-4); Immature Platelets 1.3 % (1.1-6.1); Lymphocytes # 0.4 K/mcL (0.6-4.6); Lymphocytes % 8.9 %; Mean Corpuscular Volume 90.2 fL (83.0-100.0); Mean Platelet Volume 9.5 fL (9.4-12.4); Monocytes # 0.4 K/mcL (0.0-1.3); Monocytes % 8.7 %; Neutrophils # 3.7 K/mcL (1.6-8.9); Red Blood Count 2.46 M/mcL (3.82-4.97); Red Cell Distribution Width 13.9 % (11.5-14.5); Segmented Neutrophils % 80.1 %; White Blood Count 4.6 K/mcL (4.3-11.1)
[2020-10-07 05:56] LABS: Platelet Count 97 K/mcL (140-400)
[2020-10-07] MEDS ORDERED: 0.9 % Sodium Chloride 1,000 ML IVC SCH (07:15)
[2020-10-07] MEDS: Insulin LISPRO 300 UNITS/3 ML VIAL SUBQ SCH ×4 (07:31→20:49)
[2020-10-07] MEDS: Lactulose Oral Soln 20 GM/30 ML UDC PO SCH ×2 (07:37→20:49)
[2020-10-07] MEDS: Aspirin Enteric Coated 81 MG Tablet PO SCH (11:47)
[2020-10-07] MEDS ORDERED: *HR* LORazepam 0.5 MG TABLET PO PRN (17:59)
[2020-10-07] MEDS: QUEtiapine Fumarate 25 MG TABLET PO SCH (20:47)
[2020-10-08 01:35] LABS: Immature Granulocytes % 0.4 % (0-4)
[2020-10-08 01:37] LABS: Basophils % 0.4 %; Eosinophils # 0.1 K/mcL (0.0-0.6); Eosinophils % 1.4 %; Hematocrit 25.3 % (35.3-44.9); Immature Platelets 0.9 % (1.1-6.1); Lymphocytes # 0.4 K/mcL (0.6-4.6); Lymphocytes % 8.2 %; Mean Corpuscular HGB Conc 31.6 g/dL (31.6-35.5); Mean Corpuscular Hemoglobin 29.4 pg (28.0-33.3); Mean Platelet Volume 8.8 fL (9.4-12.4); Monocytes # 0.5 K/mcL (0.0-1.3); Monocytes % 9.2 %; Platelet Count 104 K/mcL (140-400); Red Blood Count 2.72 M/mcL (3.82-4.97); Segmented Neutrophils % 80.4 %
[2020-10-08 01:54] LABS: Albumin 2.5 g/dL (3.5-5.7); Albumin/Globulin Ratio 0.7 (1.1-2.2); Bilirubin,Total 0.6 mg/dL (0.3-1.0); Calcium 8.4 mg/dL (8.6-10.3); Globulin 3.5 g/dL (2.4-3.5); Potassium 4.6 mEq/L (3.5-5.1)
[2020-10-08] MEDS: Piperacillin/Tazobactam 3.375 GM in 0.9 % Sodium Chloride Mini Bag 100 ML IVPB SCH ×3 (03:04→18:06)
[2020-10-08] MEDS: Lactulose Oral Soln 20 GM/30 ML UDC PO SCH ×2 (07:42→19:30)
[2020-10-08] MEDS: Aspirin Enteric Coated 81 MG Tablet PO SCH (07:42)
[2020-10-08] MEDS: Insulin LISPRO 300 UNITS/3 ML VIAL SUBQ SCH ×5 (07:43→19:40)
[2020-10-08] MEDS ORDERED: Ondansetron 4 MG/2 ML VIAL IVP PRN (18:24)
[2020-10-08] MEDS: QUEtiapine Fumarate 25 MG TABLET PO SCH (19:30)
[2020-10-09 01:27] LABS: Hematocrit 24.4 % (35.3-44.9); Hemoglobin 7.7 g/dL (11.5-15.4); Mean Corpuscular HGB Conc 31.6 g/dL (31.6-35.5); Mean Platelet Volume 9.1 fL (9.4-12.4)
[2020-10-09 01:29] LABS: Basophils % 0.6 %; Eosinophils # 0.1 K/mcL (0.0-0.6); Eosinophils % 2.1 %; Immature Granulocytes % 0.4 % (0-4); Immature Platelets 1.2 % (1.1-6.1); Lymphocytes # 0.5 K/mcL (0.6-4.6); Lymphocytes % 9.8 %; Mean Corpuscular Hemoglobin 29.6 pg (28.0-33.3); Mean Corpuscular Volume 93.8 fL (83.0-100.0); Monocytes # 0.5 K/mcL (0.0-1.3); Monocytes % 8.6 %; Neutrophils # 4.2 K/mcL (1.6-8.9); Platelet Count 104 K/mcL (140-400); Red Cell Distribution Width 14.2 % (11.5-14.5); Segmented Neutrophils % 78.5 %; White Blood Count 5.3 K/mcL (4.3-11.1)
[2020-10-09 01:59] LABS: Potassium 4.3 mEq/L (3.5-5.1)
[2020-10-09] MEDS: Piperacillin/Tazobactam 3.375 GM in 0.9 % Sodium Chloride Mini Bag 100 ML IVPB SCH ×3 (02:28→17:43)
[2020-10-09 02:48] LABS: Troponin I 0.36 ng/mL (< 0.04)
[2020-10-09] MEDS ORDERED: *HR* Heparin 5,000 UNIT/ML VIAL IVP PRN ×2 (05:33)
[2020-10-09] MEDS ORDERED: *HR* Heparin 5,000 UNIT/ML VIAL IVP ONE (05:33)
[2020-10-09] MEDS ORDERED: Heparin 25,000UNIT/250ML 1/2NS 25,000 UNIT/250 ML IV.SOLN IVC SCH (05:45)
[2020-10-09 06:08] LABS: Hematocrit 25.1 % (35.3-44.9); Hemoglobin 7.9 g/dL (11.5-15.4); Mean Corpuscular HGB Conc 31.5 g/dL (31.6-35.5); Mean Corpuscular Hemoglobin 29.7 pg (28.0-33.3); Mean Corpuscular Volume 94.4 fL (83.0-100.0); Red Blood Count 2.66 M/mcL (3.82-4.97)
[2020-10-09 06:10] LABS: Immature Platelets 1.1 % (1.1-6.1); Mean Platelet Volume 8.8 fL (9.4-12.4); Red Cell Distribution Width 14.2 % (11.5-14.5); White Blood Count 6.3 K/mcL (4.3-11.1)
[2020-10-09 06:16] LABS: INR 1.3; Prothrombin Time 15.2 Seconds (9.4-12.1)
[2020-10-09 06:18] LABS: Heparin anti-factor XA UFH < 0.04 IU/mL (0.30-0.70)
[2020-10-09] MEDS: Insulin LISPRO 300 UNITS/3 ML VIAL SUBQ SCH ×4 (08:06→21:58)
[2020-10-09] MEDS: Aspirin Enteric Coated 81 MG Tablet PO SCH (08:06)
[2020-10-09] MEDS: Lactulose Oral Soln 20 GM/30 ML UDC PO SCH ×2 (08:06→22:15)
[2020-10-09] MEDS ORDERED: 0.9 % Sodium Chloride 1,000 ML IVC SCH (08:45)
[2020-10-09] MEDS: *HR* Heparin 5,000 UNIT/ML VIAL SQ SCH (17:44)
[2020-10-09] MEDS: QUEtiapine Fumarate 25 MG TABLET PO SCH (22:15)
[2020-10-10] MEDS: Piperacillin/Tazobactam 3.375 GM in 0.9 % Sodium Chloride Mini Bag 100 ML IVPB SCH (03:34)
[2020-10-10] MEDS: *HR* Heparin 5,000 UNIT/ML VIAL SQ SCH (03:45)
[2020-10-10 06:52] LABS: Basophils % 0.4 %; Eosinophils % 1.4 %; Mean Corpuscular Hemoglobin 29.9 pg (28.0-33.3); Red Blood Count 2.68 M/mcL (3.82-4.97); Red Cell Distribution Width 14.1 % (11.5-14.5)
[2020-10-10 06:54] LABS: Eosinophils # 0.1 K/mcL (0.0-0.6); Hematocrit 24.5 % (35.3-44.9); Immature Granulocytes % 0.4 % (0-4); Immature Platelets 2.1 % (1.1-6.1); Lymphocytes # 0.6 K/mcL (0.6-4.6); Lymphocytes % 7.8 %; Mean Corpuscular HGB Conc 32.7 g/dL (31.6-35.5); Mean Corpuscular Volume 91.4 fL (83.0-100.0); Mean Platelet Volume 9.7 fL (9.4-12.4); Monocytes # 0.7 K/mcL (0.0-1.3); Monocytes % 9.1 %; Neutrophils # 6.2 K/mcL (1.6-8.9); Segmented Neutrophils % 80.9 %; White Blood Count 7.7 K/mcL (4.3-11.1)
[2020-10-10 06:57] LABS: BUN/Creatinine Ratio 18 (6-26); Blood Urea Nitrogen 19 mg/dL (8-23); Calcium 8.2 mg/dL (8.6-10.3); Carbon Dioxide 23 mEq/L (23-29); Chloride 101 mEq/L (98-107); Glucose 144 mg/dL (70-105); Osmolality,Calculated 277 (280-300); Potassium 3.9 mEq/L (3.5-5.1); Sodium 131 mEq/L (136-145); eGFR For African Americans > 60 (> 60); eGFR For Non-African Americans 50 (> 60)
[2020-10-10 06:58] LABS: Platelet Count 97 K/mcL (140-400)
[2020-10-10 08:28] VITALS: BP 108/68
[2020-10-10] MEDS: Insulin LISPRO 300 UNITS/3 ML VIAL SUBQ SCH (08:35)
[2020-10-10] MEDS: Lactulose Oral Soln 20 GM/30 ML UDC PO SCH (08:35)
== END 2020-10-10 12:33 | DRG 193 ==
LOC: EMEROOARM 23:52 → 2ANU 23:52 → SUATTDRO 10-06 03:44 → 2ANU 10-06 04:24 → SUATTDRO 10-07 13:08
PROVIDERS: ADMIT Family Medicine; ATTEND Internal Medicine

== ENCOUNTER 2020-10-10 16:02 | Observation (INO) ==
[2020-10-10] MEDS: DilTIAZem 50 MG/50 ML IV.SOLN IVC SCH ×2 (17:11→22:46)
[2020-10-10] MEDS ORDERED: Naloxone 0.4 MG/ML INJ IVP PRN (20:05)
[2020-10-10] MEDS ORDERED: Morphine Sulfate 2 MG/ML SYRINGE IVP ONE (23:27)
[2020-10-10] MEDS ORDERED: Ipratropium/Albuterol Neb 3 ML IH PRN (23:30)
[2020-10-10] MEDS ORDERED: Levalbuterol Neb 1.25 MG/3 ML ONE (23:40)
[2020-10-10] MEDS ORDERED: Levalbuterol Neb 1.25 MG/3 ML IH PRN (23:43)
[2020-10-11] MEDS ORDERED: Nitroglycerin 0.4 MG TAB.SUBL SL PRN (00:25)
[2020-10-11] MEDS ORDERED: Furosemide 40 MG/4 ML VIAL IVP ONE (01:25)
[2020-10-11] MEDS: DilTIAZem 50 MG/50 ML IV.SOLN IVC SCH ×3 (02:39→09:05)
[2020-10-11 02:54] LABS: Hematocrit 27.2 % (35.3-44.9); Hemoglobin 8.6 g/dL (11.5-15.4); Mean Corpuscular HGB Conc 31.6 g/dL (31.6-35.5); Mean Corpuscular Hemoglobin 29.9 pg (28.0-33.3); Mean Corpuscular Volume 94.4 fL (83.0-100.0); Platelet Count 117 K/mcL (140-400); Red Blood Count 2.88 M/mcL (3.82-4.97); Red Cell Distribution Width 14.5 % (11.5-14.5)
[2020-10-11 02:55] LABS: White Blood Count 15.4 K/mcL (4.3-11.1)
[2020-10-11 03:14] LABS: BUN/Creatinine Ratio 20 (6-26); Blood Urea Nitrogen 21 mg/dL (8-23); Calcium 8.2 mg/dL (8.6-10.3); Carbon Dioxide 22 mEq/L (23-29); Chloride 96 mEq/L (98-107); Glucose 144 mg/dL (70-105); Osmolality,Calculated 272 (280-300); Potassium 3.4 mEq/L (3.5-5.1); Sodium 128 mEq/L (136-145); eGFR For African Americans > 60 (> 60); eGFR For Non-African Americans 51 (> 60)
[2020-10-11] MEDS ORDERED: Dextrose Gel 15 GM/37.5 ML TUBE PO PRN ×2 (03:46)
[2020-10-11] MEDS ORDERED: *HR* Dextrose 50 % in Water (Vial) 50 ML VIAL IVP PRN (03:46)
[2020-10-11] MEDS ORDERED: D5% in Water 1,000 ML IVC PRN (03:46)
[2020-10-11] MEDS ORDERED: Morphine Sulfate 2 MG/ML SYRINGE IVP ONE ×2 (04:43→17:09)
[2020-10-11] MEDS: Insulin LISPRO 300 UNITS/3 ML VIAL SUBQ SCH ×3 (08:25→16:41)
[2020-10-11] MEDS ORDERED: Azithromycin 500 MG in 0.9 % Sodium Chloride 250 ML IVPB SCH (09:00)
[2020-10-11] MEDS ORDERED: Furosemide 20 MG/2 ML VIAL IVP SCH (09:00)
[2020-10-11] MEDS ORDERED: cefTRIAXone 1,000 MG in 0.9 % Sodium Chloride Mini Bag 100 ML IVPB SCH (09:00)
[2020-10-11] MEDS ORDERED: DilTIAZem 125 MG in 0.9 % Sodium Chloride 50 MG/100 ML IV.SOLN IVC SCH (11:15)
[2020-10-11] MEDS ORDERED: Metoprolol XL (24 HR) Succ 25 MG TAB.ER.24H PO SCH (13:45)
[2020-10-11] MEDS ORDERED: *HR* OxyCODONE Immed Rel 5 MG TABLET PO PRN (16:24)
[2020-10-11] MEDS ORDERED: *HR* LORazepam 0.5 MG TABLET PO PRN (16:24)
[2020-10-11] MEDS ORDERED: *HR* Atropine Sulfate 1 MG/10 ML SYRINGE ONE (17:02)
[2020-10-11] MEDS ORDERED: *HR* LORazepam 2 MG/ML VIAL ONE (17:06)
[2020-10-11] MEDS ORDERED: *HR* LORazepam 2 MG/ML VIAL IVP ONE (17:08)
[2020-10-11] MEDS ORDERED: MethylPREDNISolone 40 MG/ML VIAL ONE (17:15)
[2020-10-11] MEDS ORDERED: MethylPREDNISolone 40 MG/ML VIAL IVP ONE (17:15)
[2020-10-11 17:22] VITALS: BP 139/91
[2020-10-11] MEDS ORDERED: Morphine Sulfate 2 MG/ML SYRINGE IVP PRN (17:45)
[2020-10-11] MEDS ORDERED: *HR* LORazepam Oral Conc 2 MG/ML SL PRN (17:46)
[2020-10-11] MEDS ORDERED: Atropine 1% Opth Drops 100 DROP/5 ML BOTTLE SL PRN (17:51)
[2020-10-11] MEDS ORDERED: Scopolamine Patch 1.5 MG PATCH.TD72 TD SCH (18:00)
[2020-10-11] MEDS ORDERED: Cholecalciferol (D-3) 1,000 UNIT (25MCG) TABLET PO SCH (21:00)
[2020-10-11] MEDS ORDERED: Lactulose Oral Soln 20 GM/30 ML UDC PO SCH (21:00)
[2020-10-11] MEDS ORDERED: QUEtiapine Fumarate 25 MG TABLET PO SCH (21:00)
[2020-10-12] MEDS ORDERED: Aspirin Enteric Coated 81 MG Tablet PO SCH (09:00)
== END 2020-10-11 21:00 | disposition expired ==
LOC: 2NENU 16:02 → EMEROOARM 16:02 → SUATTDRO 19:58 → 2NENU 20:44
PROVIDERS: ADMIT Internal Medicine; ATTEND Pharmacist